=== PATIENT | female | born 1950 | race Caucasian/White ===

== ENCOUNTER 2023-05-13 07:53 | Outpatient (OUT) | payer MEDICARE, SELFPAY ==
--- NOTE | 2023-05-13 07:56 | MM_ITS ---
Patient: TARAH BRISENO Exam Date: 05/13/2023 : 1950 Gender:F Ordering : DR. SUKI BRUCE . Admission #: [id number] Family : Order #: [id number] CLICK HERE TO VIEW EXAM RADIOLOGY REPORT PROCEDURE: MM TOMOSYNTHESIS SCREENING BI COMPARISON: MG MAMM SCREEN 3D ANH CAD, 05/12/2022. MG MAMM SCREEN 3D AHN CAD, 05/11/2021. MG MAMM SCREEN ANH W CAD, 04/15/2020. MG MAMM ANH SCRN W CAD DIG, 05/23/2013. INDICATIONS: Screening Calculator Name NCI Breast Cancer Risk Assessment Tool 5 Year Breast Cancer Risk 2.60% Lifetime Breast Cancer Risk 7.60% Personal Breast Cancer No Personal Ovarian Cancer No Treatments None Family Cancers Grandmother-maternal with breast cancer at age 90; Mother with cervical cancer at age ~45. LOCATION: [facility] BREAST COMPOSITION: Scattered areas fibroglandular density. FINDINGS: DIAGNOSTIC CATEGORY 2--BENIGN FINDING: RIGHT BREAST: No significant suspicious finding. Scattered benign-appearing calcifications are present. Scattered benign-appearing lymph nodes are present. No significant change has occurred. LEFT BREAST: No significant suspicious finding. No significant change has occurred. RECOMMENDATIONS: ROUTINE MAMMOGRAM AND CLINICAL EVALUATION IN 12 MONTHS. PLEASE NOTE: A NORMAL MAMMOGRAM DOES NOT EXCLUDE THE POSSIBILITY OF BREAST CANCER. A CLINICALLY SUSPICIOUS PALPABLE LUMP SHOULD BE BIOPSIED. Dictated by: Justin Park M.D. on 05/16/2023 at 14:37 Approved by: Justin Park M.D. on 05/16/2023 at 14:39
== END 2023-05-13 07:54 | disposition home or self-care (01) ==
LOC: MAMMO 07:53
PROVIDERS: PCP Family Medicine; Visit Provider Family Medicine
DX: Z12.31 Encounter for screening mammogram for malignant neoplasm of breast (principal); Z80.3 Family history of malignant neoplasm of breast; Z80.49 Family history of malignant neoplasm of other genital organs
CPT/HCPCS: 77063; 77067

== ENCOUNTER 2023-10-02 00:28 | Emergency (ER) | payer MEDICARE, SELFPAY ==
[2023-10-02 00:42] VITALS: BP 128/88; PULSE 64; RESP 19; TEMP 36.5; O2SAT 97; BMI 37.4
[2023-10-02 00:49] VITALS: BP 128/88; PULSE 56; RESP 19; TEMP 36.5; O2SAT 96; BMI 37.4
--- OUTSIDE RECORDS SUMMARY | 2023-10-02 00:56 | XMS_ITS | CCD ---
Author Name Unknown Address [address] [place] [address] Organization [facility] Care Team Providers Care Revival Clerk Name Role Phone RAUL NGUYEN Primary Care Physician [phone] JOSHUA, DR RAUL Pickard Primary Care Unavailable JOSHUA, DR RAUL Pickard Admitting Unavailable JOSHUA, DR RAUL Pickard Attending Unavailable JOSHUA, DR RAUL Pickard Consulting Unavailable GAKONA, DR PINEDA Consulting Unavailable JOSHUA, DR RAUL Pickard Referring Unavailable DEO SALGADO, DR VIDA Diaz Admitting Unavailmark YAP, DR DANIELLE Watkins Consulting Unavailable DEO SALGADO, DR VIDA Diaz Attending Unavailabl e JOSHUA, DR RAUL Pickard Primary Care Unavailable DEO SALGADO, DR VIDA Diaz Consulting Unavailabl e JOSHUA, DR RAUL Pickard Primary Care Unavailable JOSHUA, DR RAUL Pickard Admitting Unavailable JOSHUA, DR RAUL Pickard Attending Unavailable JOSHUA, DR RAUL Pickard Consulting Unavailable RAUL NGUYEN Primary Care Physician Colby Escobar Primary Care Physician SAMUEL SHORE Attending Unavailable MD Colby Escobar Attending Unavailable MD Colby Escobar Attending Unavailable JOSHUA, RAUL Pickard Attending Unavailable MD Colby Escobar Attending Unavailable MD Colby Escobar Attending Unavailable LESLY ISBELL Attending Unavailable Oh CHILDS Admitting Unavailable Oh CHILDS Attending Unavailable Oh CHILDS Referring Unavailable MD Colby Escobar Admitting Unavailable MD Colby Escobar Attending Unavailable Oh CHILDS Admitting Unavailable RICE, Oh Bradshaw Attending Unavailable RICE, Oh Bradshaw Admitting Unavailable RICE, Oh Bradshaw Attending Unavailable RICEOh Referring Unavailable RICE, Oh Bradshaw Attending Unavailable RICEOh Attending Unavailable Antonio YUSUF Attending Unavailable Oh CHILDS Attending Unavailable MD Colby Escobar Attending Unavailable RAUL NGUYEN Attending Unavailable Allergies Allergy Classification Reported Allergen(s) Allergy Type Date of Onset Reaction(s) Facility (12 sources) Iodine; Translations: [iodine] Drug Allergy Unknown (qualifier value), Anaphylactic shock [facility] (13 sources) Latex; Translations: [latex] Propensity to adverse reactions to substance Unknown (qualifier value) [facility] (1 source) Iodine (And Iodine Containting Drugs) Drug allergy (disorder) [facility] (2 sources) Acetaminophen; Translations: [acetaminophen] Drug Allergy Unknown (qualifier value) [facility] (1 source) Acetaminophen / Codeine; Translations: [Tylenol with Codeine] Drug Allergy [facility] (1 source) Naproxen; Translations: [Naprosyn] Drug Allergy [facility] Repository Medications Current Medications Medication Drug Class(es) Dates Sig (Normalized) Sig (Original) [id number] 200 actuat albuterol 0.09 mg/actuat metered dose inhaler (7 sources) beta2-Adrenergic Agonist Start: 04-06-2023 take 2 puff(s) by mouth every four hours Proventil HFA 90 mcg/inh Aerosol 2 puff(s), Oral, q4hr Shortness of breath or wheezing, 1 kit(s), Refill(s) 0, [facility] [id number], 163, cm, 04/06/23 15:43:00 EDT, Height/Length Dosing, 107, kg, 04/06/23 15:43:00 EDT, Weight Dosing Start Date: 04/06/23 Status: Ordered Start: 05-03-2022 take 2 puff(s) by in halation every four hours as needed for wheezing Proventil HFA = 2 puff(s), Inhalation, q4hr, PRN Shortness of breath or wheezing, Refills(s) 0 Start Date: 05/03/22 Status: Ordered atorvastatin 40 mg oral tablet (11 sources) HMG-CoA Reductase Inhibitor Start: 06-01-2023 take 1 tablet by mouth once daily atorvastatin 40 mg Tab See Instructions, TAKE 1 TABLET BY MOUTH DAILY, # 90 tab(s), Refills(s) 0, Pharmacy: [facility] [id number], 163, cm, 04/06/23 15:43:00 EDT, Height/Length Dosing, 107, kg, 04/06/23 15:43:00 EDT, Weight Dosing Start Date: 06/01/23 Status: Ordered Start: 02-23-2023 take 1 tablet by raf th once daily atorvastatin 40 mg Tab 40 mg = 1 tab(s), Oral, Daily, # 90 tab(s), Refills(s) 0, Pharmacy: [facility] [id number], 165, cm, 01/11/23 9:47:00 EDT, Height/Length Dosing, 115, kg, 01/11/23 9:47:00 EDT, Weight Dosing Start Date: 02/23/23 Status: Ordered Start: 05-03-2022 take 1 tablet by raf th once daily atorvastatin 40 mg Tab 40 mg = 1 tab(s), Oral, Daily, Refills(s) 0 Start Date: 05/03/22 Status: Ordered Start: 01-06-2021 take 1 mg by mouth once daily atorvastatin 10 mg Tab mg tab(s), Oral, Daily, Refills(s) 0 Start Date: 01/06/21 Status: Ordered ciclopirox 7.7 mg/ml topical cream (5 sources) Start: 10-26-2022 ciclopirox top ical 0.77% cream 1 edwin, Topical, BID, 30 gram, Refill(s) 3, [facility] [id number], 165.1, cm, 09/29/22 10:13:00 EDT, Height/Length Dosing, 109.8, kg, 09/29/22 10:13:00 EDT, Weight Dosing Start Date: 10/26/22 Status: Ordered ibuprofen 600 mg oral tablet (5 sources) Nonsteroidal Anti-inflammatory Drug Start: 04-14-2023 take 1 tablet by mouth every six hours as needed for pain ibuprofen 600 mg Tab 600 mg = 1 tab(s), Oral, q6hr, PRN Pain/Fever, # 30 tab(s), Refills(s) 0, Pharmacy: [facility] [id number], 163, cm, 04/06/23 15:43:00 EDT, Height/Length Dosing, 107, kg, 04/06/23 15:43:00 EDT, Weight Dosing Start Date: 04/14/23 Status: Ordered Start: 09-27-2022 ibuprofen 600 mg Tab Refills(s) 0 Start Date: 09/27/22 Status: Ordered levothyroxine sodium 0.025 mg oral tablet (11 sources) l-Thyroxine Start: 05-10-2023 take 1 tablet by mouth once daily levothyroxine 25 mcg (0.025 mg) Tab 25 mcg = 1 tab(s), Oral, Daily, # 90 tab(s), Refills(s) 1, Pharmacy: [facility] [id number], 163, cm, 04/06/23 15:43:00 EDT, Height/Length Dosing, 107, kg, 04/06/23 15:43:00 EDT, Weight Dosing Start Date: 05/10/23 Status: Ordered Start: 10-29-2022 take 1 tablet by raf th once daily levothyroxine 25 mcg (0.025 mg) Tab 25 mcg = 1 tab(s), Oral, Daily, # 90 tab(s), Refills(s) 1, Pharmacy: [facility] [id number], 165.1, cm, 09/29/22 10:13:00 EDT, Height/Length Dosing, 109.8, kg, 09/29/22 10:13:00 EDT, Weight Dosing Start Date: 10/29/22 Status: Ordered Start: 05-03-2022 take 1 tablet by raf th once daily levothyroxine 25 mcg (0.025 mg) Tab 25 mcg = 1 tab(s), Oral, Daily, Refills(s) 0 Start Date: 05/03/22 Status: Ordered Start: 08-26-2020 take 1 tablet by raf th once daily levothyroxine 50 mcg (0.05 mg) Tab mcg tab(s), Oral, Daily, Refills(s) 0 Start Date: 08/26/20 Status: Ordered Start: 08-26-2020 take 1 tablet by raf th once daily levothyroxine 50 mcg (0.05 mg) Tab mcg tab(s), Oral, Daily, Refills(s) 0 Start Date: 08/26/20 Status: Ordered solifenacin succinate 5 mg oral tablet (1 source) Cholinergic Muscarinic Antagonist Start: 11-12-2021 take 1 tablet by mouth once daily Vesicare 5 mg Tab 5 mg = 1 tab(s), Oral, Daily, # 30 tab(s), Refills(s) 2, Pharmacy: [facility] [id number], 165, cm, 11/12/21 11:38:00 EDT, Height/Length Dosing, 115, kg, 11/12/21 11:38:00 EDT, Weight Dosing Start Date: 11/12/21 Status: Ordered zzzalbuterol CFC free 90 mcg/inh inhalation aerosol (3 sources) Start: 09-27-2022 zzzalbuterol C FC free 90 mcg/inh inhalation aerosol Refills(s) 0 Start Date: 09/27/22 Status: Ordered Completed/Discontinued Medications Medication Drug Class(es) Dates Sig (Normalized) Sig (Original) cephalexin 500 mg oral capsule (5 sources) Cephalosporin Antibacterial Start: 01-19-2022 take 1 capsule by mouth once daily Keflex 500 mg Cap 500 mg = 1 cap(s), Oral, Daily, Take 1 tab day before procedure and 1 after procedure, # 2 cap(s), Refills(s) 0, Pharmacy: [facility] [id number], 165, cm, 01/19/22 9:47:00 EDT, Height/Length Dosing, 115, kg, 01/19/22 9:47:00 EDT, Weight Dosing Start Date: 01/19/22 Status: Ordered Start: 05-07-2021 take 1 capsule by [facility] twice daily Keflex 500 mg Cap 500 mg = 1 cap(s), Oral, BID, pt to start day prior to procedure., # 14 cap(s), Refills(s) 0, Pharmacy: [facility] [id number], 165, cm, 05/07/21 10:07:00 EDT, Height/Length Dosing, 115, kg, 05/07/21 10:07:00 EDT, Weight Dosing Start Date: 05/07/21 Status: Ordered Problems Problem Classification Problem Date Documented Date Episodic/Chronic Abdominal hernia (7 sources) Hiatal hernia 05-03-2022 Episodic Asthma (11 sources) Asthma 12-24-2018 Chronic Disorders of lipid metabolism (8 sources) Pure hypercholesterolemia; Translations: [Pure hypercholesterolemia, unspecified] Onset: 04-04-2022 05-03-2022 Chronic Esophageal disorders (14 sources) Gastroesophageal reflux disease; Translations: [Lower esophageal ring] 05-03-2022 Chronic Genitourinary symptoms and ill-defined conditions (20 sources) Stress incontinence (female) (male); Translations: [Urge incontinence] Onset: 07-02-2021 Chronic Genitourinary symptoms and ill-defined conditions (20 sources) Urgent desire to urinate; Translations: [Urgency of urination] Onset: 06-25-2021 Episodic Mycoses (5 sources) Candidal paronychia 09-29-2022 Episodic Other and unspecified benign neoplasm (7 sources) History of polyp of colon 05-03-2022 Episodic Other connective tissue disease (7 sources) Fibromyalgia 05-03-2022 Episodic Other connective tissue disease (7 sources) History of polymyalgia rheumatica 05-03-2022 Episodic Other diseases of bladder and urethra (7 sources) Urethral stricture; Translations: [Other urethral stricture, female] Onset: 01-10-2023 12-07-2022 Episodic Other diseases of kidney and ureters (11 sources) Cyst of kidney 10-07-2020 Episodic Other nutritional; endocrine; and metabolic disorders (5 sources) Body mass index 40+ - severely obese 05-12-2022 Chronic Other screening for suspected conditions (not mental disorders or infectious disease) (5 sources) Screening for malignant neoplasm of colon done; Translations: [Encounter for screening for malignant neoplasm of colon] Onset: 05-12-2022 Episodic Residual codes; unclassified (1 source) Family history of malignant neoplasm of breast; Translations: [FAMILY HX MALIG NEOPLASM OF BREAST] Onset: 05-18-2022 Episodic Residual codes; unclassified (1 source) Family history of malignant neoplasm of other genital organs; Translations: [FAM HX MALIG NEOPLSM OTH GENIT ORGN] Onset: 05-18-2022 Episodic Thyroid disorders (15 sources) Hyperthyroidism; Translations: [Hypothyroidism] Onset: 03-31-2022 12-24-2018 Chronic Unclassified (11 sources) Asymptomatic microscopic hematuria 10-07-2020 Unclassified (9 sources) Patient encounter status 05-12-2022 Results Test Name Value Interpretation Reference Range Facility Outside Mammographyon 2022 Outside Mammography [id number] Normal [facility] CHEMISTRYOrdered By: SYSTEM SYSTEM on 05-10-2023 Cholesterol [Mass/Vol] 151 mg/dL Normal 120 - 200 mg/dL [facility] Cholesterol in HDL [Mass/Vol] 58 mg/dL Invalid Interpretation Code [facility] Comment on above: Interpretive Data: H DL > or equal to 60 mg/dL: Low cardiovascular risk HDL < 40 mg/dL : High cardiovascular risk Cholesterol in LDL [Mass/Vol] 77 mg/dL Normal <=129mg/dL [facility] Cholesterol in VLDL [Mass/Vol] 28 mg/dL Normal 7 - 40 mg/dL [facility] Triglyceride [Mass/Vol] 141 mg/dL Normal <=149mg/dL [facility] TSH Qn 1.54 m[IU]/L Normal 0.34 - 5.60 mcIU/mL [facility] Lipid Panelon 05-10-2023 Cholesterol [Mass/Vol] 151 mg/dL Normal 120-200 [facility] Comment on above: Performed By: #### 2 [id number], [id number] #### [facility] [address] [place] [address] Cholesterol in HDL [Mass/Vol] 58 mg/dL Invalid Interpretation Code [facility] Comment on above: Result Comment: HDL > or equal to 60 mg/dL: Low cardiovascular risk HDL < 40 mg/dL : High cardiovascular risk Performed By: #### 2 [id number], [id number] #### [facility] [address] [place] [address] Cholesterol in LDL [Mass/Vol] 77 mg/dL Normal <=129 [facility] Comment on above: Performed By: #### 2 [id number], [id number] #### [facility] [address] [place] [address] Cholesterol in VLDL [Mass/Vol] 28 mg/dL Normal 7-40 [facility] Comment on above: Performed By: #### 2 [id number], [id number] #### [facility] [address] [place] [address] Triglyceride [Mass/Vol] 141 mg/dL Normal <=149 [facility] Comment on above: Performed By: #### 2 [id number], [id number] #### [facility] [address] [place] [address] Nurse Consultation Noteon Nurse Consultation Note Reason for Visit Here for a lab draw Medications atorvastatin 40 mg Tab, 40 mg= 1 tab(s), Oral, Daily ciclopirox topical 0.77% cream, 1 edwin, Topical, BID, 3 refills ibuprofen 600 mg Tab, 600 mg= 1 tab(s), Oral, q6hr, PRN levothyroxine 25 mcg (0.025 mg) Tab, 25 mcg= 1 tab(s), Oral, Daily, 1 refills Proventil HFA 90 mcg/inh Aerosol, 2 puff(s), Oral, q4hr, PRN Allergies Latex (Hives) iodine (Anaphylactic shock) Immunizations Vaccine Date Status Comments influenza virus vaccine, inactivated 03/24/2023 Recorded SARS-CoV-2 (COVID-19) [id number] 03/24/2023 Recorded SARS-CoV-2 (COVID-19) [id number].[id number] 07/19/2022 Recorded influenza virus vaccine, inactivated 03/30/2022 Recorded SARS-CoV-2 (COVID-19) mRNA-1273 vaccine 05/19/2021 Recorded influenza virus vaccine, inactivated 04/24/2021 Recorded 2022-09-27: 65 SARS-CoV-2 (COVID-19) mRNA-1273 vaccine 10/04/2020 Recorded SARS-CoV-2 (COVID-19) mRNA-1273 vaccine 09/06/2020 Recorded influenza virus vaccine, inactivated 04/2020 Recorded influenza virus vaccine, inactivated 06/13/2019 Recorded influenza virus vaccine, inactivated 05/18/2018 Recorded influenza virus vaccine, inactivated 06/08/2015 Recorded pneumococcal 23-valent vaccine 04/28/2014 Recorded influenza virus vaccine, inactivated 04/28/2014 Recorded influenza virus vaccine, inactivated 05/13/2013 Recorded Normal [facility] TSH With T4fr Reflexon 05-10 TSH Qn 1.54 m[IU]/L Normal 0.34-5.60 [facility] Comment on above: Performed By: #### 2 [id number], [id number] #### [facility] [address] [place] [address] Ambulatory Visit Summaryon 0 04-14-2023 Ambulatory Visit Summary TARAH BRISENO :1950 Visit Date:04/14/2023 Ambulatory Visit Instructions Your Diagnosis Asthma Fibromyalgia GERD (gastroesophageal reflux disease) Hypothyroidism Pure hypercholesterolemia BMI 39.0-39.9,adult Class 1 obesity due to excess calories in adult Screening mammogram, encounter for Your Care Team Attending Physician - Colby Escobar MD Primary Care Physician - Colby Escobar MD This Is Your Medications List ibuprofen (ibuprofen 600 mg Tab) Contact prescribing physician if questions or concerns albuterol (Proventil HFA 90 mcg/inh Aerosol) atorvastatin (atorvastatin 40 mg Tab) ciclopirox topical (ciclopirox topical 0.77% cream) levothyroxine (levothyroxine 25 mcg (0.025 mg) Tab) Procedures Performed Injection of therapeutic substance into bladder wall (10/23/2020), Urodynamics (12/08/2017), Cystoscopy (10/17/2017), EGD - Esophagogastroduodenoscopy (04/2012), Colonoscopy (04/2010), EGD - Esophagogastroduodenoscopy (04/2010), Colonoscopy (09/2003), Biopsy of breast, Cholecystectomy, Colonoscopy, Tonsillectomy, Tubal ligation. 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 - No new issues. - Asthma is well controlled. Worse in the winter - GERD- Controlled per the patient. Has changed her eating habits. - Hypothyroid- No symptoms - Fibro- Controlled with movement Needs mammo Physical Exam General: alert, no acute distress ENMT: oral mucosa moist, Cardiovascular: regular rate and rhythm, normal peripheral perfusion Respiratory: Lungs CTA, respirations non labored Extremities: no deformity, no trauma Neurological: oriented x 4, LOC appropriate for age, CN II-XII intact, motor strength equal & normal bilaterally, speech normal Abdomen: Soft, Nontender, Non-distended, + BS Assessment/Plan 1. Asthma (J45.909: Unspecified asthma, uncomplicated) - Controlled with PRN albuterol - Follow up as needed Ordered: Body Mass Index (BMI) documented 3008F Current tobacco non-user 1036F Depression Screening Negative 3352F Influenza immunization administered or previously received 4274F Most recent diastolic blood pressure 80-89 mm Hg 3079F Patient screen for fall risk: no falls in last year or 1 fall with no injury in last year 1101F Systolic BP 130-139 mm Hg (Most Recent) 3075F 2. Fibromyalgia (M79.7: Fibromyalgia) - Controlled with movement - As needed Motrin use helps - Motrin refilled today Ordered: Body Mass Index (BMI) documented 3008F Current tobacco non-user 1036F Depression Screening Negative 3352F Influenza immunization administered or previously received 4274F Most recent diastolic blood pressure 80-89 mm Hg 3079F Patient screen for fall risk: no falls in last year or 1 fall with no injury in last year 1101F Systolic BP 130-139 mm Hg (Most Recent) 3075F 3. GERD (gastroesophageal reflux disease) (K21.9: Gastro-esophageal reflux disease without esophagitis) - Controlled with diet and lifestyle modifications. -We will move to PPI if needed Ordered: Body Mass Index (BMI) documented 3008F Current tobacco non-user 1036F Depression Screening Negative 3352F Influenza immunization administered or previously received 4274F Most recent diastolic blood pressure 80-89 mm Hg 3079F Patient screen for fall risk: no falls in last year or 1 fall with no injury in last year 1101F Systolic BP 130-139 mm Hg (Most Recent) 3075F 4. Hypothyroidism (E03.9: Hypothyroidism, unspecified) - We will order lab work today -Continue on levothyroxine 25 mcg Ordered: Body Mass Index (BMI) documented 3008F Current tobacco non-user 1036F Depression Screening Negative 3352F Influenza immunization administered or previously received 4274F Most recent diastolic blood pressure 80-89 mm Hg 3079F Patient screen for fall risk: no falls in last year or 1 fall with no injury in last year 1101F Systolic BP 130-139 mm Hg (Most Recent) 3075F 5. Pure hypercholesterolemia (E78.00: Pure hypercholesterolemia, unspecified) - Will order lab work today -Continue on atorvastatin Ordered: Body Mass Index (BMI) documented 3008F Current tobacco non-user 1036F Depression Screening Negative 3352F Influenza immunization administered or previously received 4274F Most recent diastolic blood pressure 80-89 mm Hg 3079F Patient screen for fall risk: no falls in last year or 1 fall with no injury in last year 1101F Systolic BP 130-139 mm Hg (Most Recent) 3075F 6. BMI 39.0-39.9,adult (Z68.39: Body mass index [BMI] 39.0-39.9, adult) - BMI education given Ordered: Body Mass Index (BMI) documented 3008F Current tobacco non-user 1036F Depression Screening Negative 3352F Influenza immunization administered or previously received 4274F Most recent diastolic blood pressure 80-89 mm Hg 3079F Patient screen for fall risk: no falls in last year or 1 fall with no injury in last year 1101F Systolic BP 130-139 mm Hg (Most Recent) 3075F 7. Class 1 obesity due to excess calories in adult (E66.09: Other obesity due to excess calories) - Discussed diet and exercise Ordered: Body Mass Index (BMI) documented 3008F Current tobacco non-user 1036F Depression Screening Negative 3352F Influenza immunization administered or previously received 4274F Most recent diastolic blood pressure 80-89 mm Hg 3079F Patient screen for fall risk: no falls in last year or 1 fall with no injury in last year 1101F Systolic BP 130-139 mm Hg (Most Recent) 3075F 8. Screening mammogram, encounter for (more content not included)... Normal [facility] Comment on above: Result Comment: Elec tronically Signed By: Shawn CORDOBA, Colby Faye.br\Date and Time Signed: 04/14/23 10:24 EDT Family Medicine Office/Clini c Noteon 04-11-2023 Family Medicine Office/Clinic Note Chief Complaint Subsequent Medicare Wellness Visit History of Present Illness I was in the office and available for consultation and to provide direct supervision at the time of this visit. I have provided supervision of the care team and have reviewed this chart and office note and agree with the plan of care. Covid-19, MERS, Ebola Screen *Contact With Person With Highly Contagious Disease Like Ebola/MERS/COVID-19 AND Have One or More of the Symptoms Below : No *Travel to a Country With Wide-Spread Ebola/MERS/COVID-19 in the Past 21 Days AND Have One or More of the Symptoms Below : No Patient Reported Covid-19 Testing : No *Verify Droplet, Contact Precautions for Ebola (Reference for CDC) : N/A *Verify Airborne, Droplet Precautions for MERS/COVID-19 : N/A Oscar Rebolledo - 04/06/2023 15:35 EDT Medicare/Medicaid Summary Chief Complaint : Subsequent Medicare Wellness Visit Patient Counseled : Nutrition, Physical activity, Elevated BMI Height/Length Measured : 163 cm(Converted to: 5 ft 4 in, 64.17 in) Weight Measured : 107 kg(Converted to: 235 lb 14 Ounces, 235.895 lb) Body Mass Index Measured : 40.27 kg/m2 Height in Inches : 64 in Weight in Pounds : 235.4 lb Waist Measurement : 113 cm(Converted to: 44 in) Systolic Blood Pressure : 124 mmHg Diastolic Blood Pressure : 70 mmHg Blood Pressure Location : Left arm Blood Pressure Position : Sitting O2 Sat Resting/Exertion Alpha : Resting Peripheral Pulse Rate : 67 bpm SpO2 : 97 % Pain Present : Yes actual or suspected pain Numeric Rating Pain Scale : 8 Primary Pain Location : Back Numeric Rating Pain Score : 8 Oscar Rebolledo 04/06/2023 15:35 EDT Patient Preferred Method of Communication No Preference Hearing and Vision Screening FT FT Whisper Test Comments : no issues or concerns Vision Screen Comments : Wears corrective lenses, follows with Oscar Albert R - 04/06/2023 15:35 EDT Advance Directive FT Advance Directive : Yes Type of Advance Directive : Living will, Medical durable power of attorney lawyer Location of Advance Directive : Copy at home, unable to obtain Patient Wishes to Receive Further Information on Advance Directives : No Organ Donation Consent : Yes Oscar Rebolledo - 04/06/2023 15:35 EDT Procedures / Surgeries FT - Procedure History (As Of: 04/06/2023 15:43:04 EDT) Procedure Dt/Tm: 12/08/2017 ; Provider: Vida Desouza Jr., MD; Anesthesia Minutes: 0 ; Procedure Name: Urodynamics ; Procedure Minutes: 0 ; Last Reviewed Dt/Tm: 04/06/2023 15:38:42 EDT Anesthesia Minutes: 0 ; Procedure Name: Biopsy of breast ; Procedure Minutes: 0 ; Last Reviewed Dt/Tm: 04/06/2023 15:38:42 EDT Anesthesia Minutes: 0 ; Procedure Name: Colonoscopy ; Procedure Minutes: 0 ; Last Reviewed Dt/Tm: 04/06/2023 15:38:42 EDT Anesthesia Minutes: 0 ; Procedure Name: Tubal ligation ; Procedure Minutes: 0 ; Last Reviewed Dt/Tm: 04/06/2023 15:38:42 EDT Anesthesia Minutes: 0 ; Procedure Name: Cholecystectomy ; Procedure Minutes: 0 ; Last Reviewed Dt/Tm: 04/06/2023 15:38:42 EDT Anesthesia Minutes: 0 ; Procedure Name: Tonsillectomy ; Procedure Minutes: 0 ; Last Reviewed Dt/Tm: 04/06/2023 15:38:42 EDT Procedure Dt/Tm: 10/17/2017 ; Provider: Vida Desouza Jr., MD; Anesthesia Minutes: 0 ; Procedure Name: Cystoscopy ; Procedure Minutes: 0 ; Comments: 12/24/2018 15:00 EDT - Veronica Magaña with Urethral dilation ; Last Reviewed Dt/Tm: 04/06/2023 15:38:42 EDT Procedure Dt/Tm: 10/23/2020 ; Provider: Vida Desouza Jr., MD; Anesthesia Minutes: 0 ; Procedure Name: Injection of therapeutic substance into bladder wall ; Procedure Minutes: 0 ; Last Reviewed Dt/Tm: 04/06/2023 15:38:42 EDT Procedure Dt/Tm: 04/2012 ; Anesthesia Minutes: 0 ; Procedure Name: EGD - Esophagogastroduodenoscopy ; Procedure Minutes: 0 ; Last Reviewed Dt/Tm: 04/06/2023 15:38:42 EDT Procedure Dt/Tm: 04/2010 ; Anesthesia Minutes: 0 ; Procedure Name: Colonoscopy ; Procedure Minutes: 0 ; Last Reviewed Dt/Tm: 04/06/2023 15:38:42 EDT Procedure Dt/Tm: 04/2010 ; Anesthesia Minutes: 0 ; Procedure Name: EGD - Esophagogastroduodenoscopy ; Procedure Minutes: 0 ; Last Reviewed Dt/Tm: 04/06/2023 15:38:42 EDT Procedure Dt/Tm: 09/2003 ; Anesthesia Minutes: 0 ; Procedure Name: Colonoscopy ; Procedure Minutes: 0 ; Last Reviewed Dt/Tm: 04/06/2023 15:38:42 EDT Family History Family History (As Of: 04/06/2023 15:43:04 EDT) Mother: Relation: Mother ; Gender: Female ; Nomenclature: Primary malignant neoplasm of female genital organ ; Value: Positive Grandparent: Relation: Grandparent ; Nomenclature: Primary malignant neoplasm of female breast ; Value: Positive Medicare/Medicaid Social History FT Social History (As Of: 04/06/2023 15:43:04 EDT) Alcohol: Denies Alcohol Use Comments: 04/06/2023 15:38 - Oscar Rebolledo: denies (Last Updated: 04/06/2023 15:38:56 EDT by Oscar Rebolledo) Tobacco: Never (less than 100 in lifetime) Tobacco Use:. Never S (more content not included)... Normal [facility] Comment on above: Result Comment: Elec tronically Signed By: Colby Escobar MD\.br\Date and Time Signed: 04/11/23 11:58 EDT\.br\Electronically Co-Signed By: Oscar Rebolledo.br\Date and Time Co-Signed: 04/06/23 16:02 EDT Formson 04-07-2023 Forms [id number]:127 Normal [facility] Screenson 04-07-2023 Screens [id number]:127 Normal [facility] Ambulatory Visit Summaryon 0 04-06-2023 Ambulatory Visit Summary TARAH BRISENO :1950 Visit Date:04/06/2023 Ambulatory Visit Instructions Your Diagnosis Annual visit for general adult medical examination without abnormal findings Screening mammogram for breast cancer Asthma Hypothyroidism Morbid obesity due to excess calories BMI 40.0-44.9, adult Tests Performed MA Mamm Screen w/CAD if perf and 3D Bk -- Results Pending -- Please visit your patient portal for your results or contact your primary care physician. Your Care Team Attending Physician - Colby Escobar MD Primary Care Physician - Colby Escobar MD This Is Your Medications List albuterol (Proventil HFA) atorvastatin (atorvastatin 40 mg Tab) ciclopirox topical (ciclopirox topical 0.77% cream) ibuprofen (ibuprofen 600 mg Tab) levothyroxine (levothyroxine 25 mcg (0.025 mg) Tab) Procedures Performed Injection of therapeutic substance into bladder wall (10/23/2020), Urodynamics (12/08/2017), Cystoscopy (10/17/2017), EGD - Esophagogastroduodenoscopy (04/2012), Colonoscopy (04/2010), EGD - Esophagogastroduodenoscopy (04/2010), Colonoscopy (09/2003), Biopsy of breast, Cholecystectomy, Colonoscopy, Tonsillectomy, Tubal ligation. Discharge Vitals Heart Rate (Peripheral) 67 Blood Pressure 124/70 Height 163 cm Height 64 in Weight 107 kg Weight 235.4 lb BMI 40.27 What to do next Scheduled Follow-Up Appointments 2022 9:40 AM EDT With: Colby Escobar MD Where: [facility] Invalid Interpretation Code [address], [address] [place] [address]- \.b r\ Tuesday 1:00 PM EDT \.br\ With:\.br\ Where: [facility] Patient Educationon 04-06-20 Patient Education Caregiving Fall Prevention in the Home, Adult Falls can cause injuries and affect people of all ages. There are many simple things that you can do to make your home safe and to help prevent falls. Ask for help when making these changes, if needed. What actions can I take to prevent falls? General instructions ? Use good lighting in all rooms. Replace any light bulbs that burn out, turn on lights if it is dark, and use night-lights. ? Place frequently used items in [id number] places. Lower the shelves around your home if necessary. ? Set up furniture so that there are clear paths around it. Avoid moving your furniture around. ? Remove throw rugs and other tripping hazards from the floor. ? Avoid walking on wet floors. ? Fix any uneven floor surfaces. ? Add color or contrast paint or tape to grab bars and handrails in your home. Place contrasting color strips on the first and last steps of staircases. ? When you use a stepladder, make sure that it is completely opened and that the sides and supports are firmly locked. Have someone hold the ladder while you are using it. Do not climb a closed stepladder. ? Know where your pets are when moving through your home. What can I do in the bathroom? ? Keep the floor dry. Immediately clean up any water that is on the floor. ? Remove soap buildup in the tub or shower regularly. ? Use nonskid mats or decals on the floor of the tub or shower. ? Attach bath mats securely with double-sided, nonslip rug tape. ? If you need to sit down while you are in the shower, use a plastic, nonslip stool. ? Install grab bars by the toilet and in the tub and shower. Do not use towel bars as grab bars. What can I do in the bedroom? ? Make sure that a bedside light is easy to reach. ? Do not use oversized bedding that reaches the floor. ? Have a firm chair that has side arms to use for getting dressed. What can I do in the kitchen? ? Clean up any spills right away. ? If you need to reach for something above you, use a sturdy step stool that has a grab bar. ? Keep electrical cables out of the way. ? Do not use floor kiswahili or wax that makes floors slippery. If you must use wax, make sure that it is non-skid floor wax. What can I do with my stairs? ? Do not leave any items on the stairs. ? Make sure that you have a light switch at the top and the bottom of the stairs. Have them installed if you do not have them. ? Make sure that there are handrails on both sides of the stairs. Fix handrails that are broken or loose. Make sure that handrails are as long as the staircases. ? Install non-slip stair treads on all stairs in your home. ? Avoid having throw rugs at the top or bottom of stairs, or secure the rugs with carpet tape to prevent them from moving. ? Choose a carpet design that does not hide the edge of steps on the stairs. ? Check any carpeting to make sure that it is firmly attached to the stairs. Fix any carpet that is loose or worn. What can I do on the outside of my home? ? Use bright outdoor lighting. ? Regularly repair the edges of walkways and driveways and fix any cracks. ? Remove high doorway thresholds. ? Trim any shrubbery on the main path into your home. ? Regularly check that handrails are securely fastened and in good repair. Both sides of all steps should have handrails. ? Install guardrails along the edges of any raised decks or porches. ? Clear walkways of debris and clutter, including tools and rocks. ? Have leaves, snow, and ice cleared regularly. ? Use sand or salt on walkways during winter months. ? In the garage, clean up any spills right away, including grease or oil spills. What other actions can I take? ? Wear closed-toe shoes that fit well and support your feet. Wear shoes that have rubber soles or low heels. ? Use mobility aids as needed, such as canes, walkers, scooters, and crutches. ? Review your medicines with your health care provider. Some medicines can cause dizziness or changes in blood pressure, which increase your risk of falling. Talk with your health care provider about other ways that you can decrease your risk of falls. This may include working with a physical therapist or program trainer to improve your strength, balance, and endurance. Where to find more information ? Centers for Disease Control and Prevention, STEADI: www.cdc.gov ? National [place] on Aging: www.jenny.nih.gov Contact a health care provider if: ? You are afraid of falling at home. ? You feel weak, drowsy, or dizzy at home. ? You fall at home. Summary ? There are many simple things that you can do to make your home safe and to help prevent falls. ? Ways to make your home safe include removing tripping hazards and installing grab bars in the bathroom. ? Ask for help when making these changes in your home. This information is not intended to replace advice given to you by your health ca (more content not included)... Normal [facility] Ambulatory Visit Summaryon 0 01-11-2023 Ambulatory Visit Summary TARAH BRISENO :1950 Visit Date:01/11/2023 Ambulatory Visit Instructions Your Diagnosis Mixed incontinence Other urethral stricture, female Asymptomatic microscopic hematuria Tests Performed Urnls Dip Stick Auto w/o Microscopy POC [id number] Your Care Team Attending Physician - WOLFGANG CORDOBA, Oh Bradshaw Primary Care Physician - JOSHUA CORDOBA, RAUL Pickard This Is Your Medications List Contact prescribing physician if questions or concerns albuterol (Proventil HFA) albuterol (zzzalbuterol CFC free 90 mcg/inh inhalation aerosol) atorvastatin (atorvastatin 40 mg Tab) ciclopirox topical (ciclopirox topical 0.77% cream) ibuprofen (ibuprofen 600 mg Tab) levothyroxine (levothyroxine 25 mcg (0.025 mg) Tab) Procedures Performed Injection of therapeutic substance into bladder wall (10/23/2020), Urodynamics (12/08/2017), Cystoscopy (10/17/2017), EGD - Esophagogastroduodenoscopy (04/2012), Colonoscopy (04/2010), EGD - Esophagogastroduodenoscopy (04/2010), Colonoscopy (09/2003), Biopsy of breast, Cholecystectomy, Colonoscopy, Tonsillectomy, Tubal ligation. Discharge Vitals Height 165 cm Height 65 in Weight 115 kg Weight 253 lb BMI 42.24 What to do next Scheduled Follow-Up Appointments Tuesday 10:15 AM EST With: MADELIN CORDOBA, Antonio Alonzo Where: [facility] Normal [facility] Patient Educationon 01-12-20 23 Patient Education Obstetrics and Gynec ology Overactive Bladder, Adult Overactive bladder is a condition in which a person has a sudden and frequent need to urinate. A person might also leak urine if he or she cannot get to the bathroom fast enough (urinary incontinence). Sometimes, symptoms can interfere with work or social activities. What are the causes? Overactive bladder is associated with poor nerve signals between your bladder and your brain. Your bladder may get the signal to empty before it is full. You may also have very sensitive muscles that make your bladder squeeze too soon. This condition may also be caused by other factors, such as: ? Medical conditions: ? Urinary tract infection. ? Infection of nearby tissues. ? Prostate enlargement. ? Bladder stones, inflammation, or tumors. ? Diabetes. ? Muscle or nerve weakness, especially from these conditions: ? A spinal cord injury. ? Stroke. ? Multiple sclerosis. ? Parkinson's disease. ? Other causes: ? Surgery on the uterus or urethra. ? Drinking too much caffeine or alcohol. ? Certain medicines, especially those that eliminate extra fluid in the body (diuretics). ? Constipation. What increases the risk? You may be at greater risk for overactive bladder if you: ? Are an older adult. ? Smoke. ? Are going through menopause. ? Have prostate problems. ? Have a neurological disease, such as stroke, dementia, Parkinson's disease, or multiple sclerosis (MS). ? Eat or drink alcohol, spicy food, caffeine, and other things that irritate the bladder. ? Are overweight or obese. What are the signs or symptoms? Symptoms of this condition include a sudden, strong urge to urinate. Other symptoms include: ? Leaking urine. ? Urinating 8 or more times a day. ? Waking up to urinate 2 or more times overnight. How is this diagnosed? This condition may be diagnosed based on: ? Your symptoms and medical history. ? A physical exam. ? Blood or urine tests to check for possible causes, such as infection. You may also need to see a health care provider who specializes in urinary tract problems. This is called a urologist. How is this treated? Treatment for overactive bladder depends on the cause of your condition and whether it is mild or severe. Treatment may include: ? Bladder training, such as: ? Learning to control the urge to urinate by following a schedule to urinate at regular intervals. ? Doing Kegel exercises to strengthen the pelvic floor muscles that support your bladder. ? Special devices, such as: ? Biofeedback. This uses sensors to help you become aware of your body's signals. ? Electrical stimulation. This uses electrodes placed inside the body (implanted) or outside the body. These electrodes send gentle pulses of electricity to strengthen the nerves or muscles that control the bladder. ? Women may use a plastic device, called a pessary, that fits into the vagina and supports the bladder. ? Medicines, such as: ? Antibiotics to treat bladder infection. ? Antispasmodics to stop the bladder from releasing urine at the wrong time. ? Tricyclic antidepressants to relax bladder muscles. ? Injections of botulinum toxin type A directly into the bladder tissue to relax bladder muscles. ? Surgery, such as: ? A device may be implanted to help manage the nerve signals that control urination. ? An electrode may be implanted to stimulate electrical signals in the bladder. ? A procedure may be done to change the shape of the bladder. This is done only in very severe cases. Follow these instructions at home: Eating and drinking ? Make diet or lifestyle changes recommended by your health care provider. These may include: ? Drinking fluids throughout the day and not only with meals. ? Cutting down on caffeine or alcohol. ? Eating a healthy and balanced diet to prevent constipation. This may include: ? Choosing foods that are high in fiber, such as beans, whole grains, and fresh fruits and vegetables. ? Limiting foods that are high in fat and processed sugars, such as fried and sweet foods. Lifestyle ? Lose weight if needed. ? Do not use any products that contain nicotine or tobacco. These include cigarettes, chewing tobacco, and vaping devices, such as e-cigarettes. If you need help quitting, ask your health care provider. General instructions ? Take qcfx-btw-fexalkn and prescription medicines only as told by your health care provider. ? If you were prescribed an antibiotic medicine, take it as told by your health care provider. Do not stop taking the antibiotic even if you start to feel better. ? Use any implants or pessary as told by your health care provider. ? If needed, wear pads to absorb urine leakage. ? Keep a log to track how much and when you drink, and when you need to urinate. This will help your health care provider monitor yo (more content not included)... Normal [facility] Urology Office/Clinic Noteon 01-11-2023 Urology Office/Clinic Note Chief Complaint fu to botox HPI Staff 72 year old female here for 1 week follow up to cysto botox 01/05/23 Previous Dx: Mixed incontinence, nocturia, Urinary urgency, urethral stricture S/P cysto ud 07/07/22, Micro hematuria pt. states that her leakage has stopped since having botox Dysuria: no Incomplete bladder emptying: no Hematuria: no Frequency: no Urgency: no Nocturia: 1-2x Stream:good stream Leaking: no Post void dripping: no Wearing pads/ Depends: no Urge incontinence: no Stress incontinence: no Incontinence without Sensory Awareness: no Abdominal pain:no Flank pain: no Sexual complaints: no History of Present Illness Tests reviewed: reviewed UA I have reviewed the previous health record information and history for this patient from Dr. Childs. I have reviewed and verified the staff HPI to be accurate for this encounter. There have been no associated fever, chills, flank pain, or blood in the urine. Denies any urinary infections since last encounter. Review of Systems PHQ Score Initial Depression Screen Score: 0 ROS - Provider Constitutional: denies weight loss, denies hot flashes. Eyes: denies eye problems. Gastrointestinal: denies nausea, denies vomiting. Cardiovascular: denies chest pain or angina. Integumentary: no dryness Musculoskeletal: denies musculoskeletal symptoms. ENMT: denies otolaryngeal symptoms. Respiratory: no shortness of breath. Heme/Lymph: denies easy bleeding tendency, denies easy bruising tendency. Psychiatric: no confusion, no anxiety. Genitourinary: denies vaginal discharge, denies incontinence, denies dysuria, denies hematuria, denies urinary frequency, denies amenorrhea, denies menorrhagia, denies abnormal bleeding, denies pelvic pain, denies genital sores, and denies decreased libido. Physical Exam Vitals & Measurements HT: 65 in HT: 165 cm WT: 115 kg WT: 253 lb BMI: 42.24 General Appearance: alert , no acute distress, well nourished, well developed female. Genitourinary: bladder nonpalpable, no flank pain. Assessment/Plan Portions of this record may have been created with voice recognition artificial intelligence software, specifically [employer], [employer] and or [employer]. Substitutions may have occurred due to the inherent limitations of voice recognition and artificial intelligence software. 1. Mixed incontinence (N39.46: Mixed incontinence) S/p Botox 100 units 10/23/20 S/p Botox 200 units 05/28/21 and 01/05/23 Pt states her sxs have improved significantly, no longer has any leakage or urgency. PVR 200mL Pt is not currently on any bladder control medications. Follow up in 6 months or sooner if needed. Pt understands and agrees with plan. 2. Other urethral stricture, female (N35.82: Other urethral stricture, female) S/p Cysto/UD 07/07/2022 Pt aware that Urethral Stricture may return and she may need to have a repeat dilation. 3. Asymptomatic microscopic hematuria (R31.21: Asymptomatic microscopic hematuria) C&S 01/03/23 - negative. UA today shows trace-intact blood and small leukocytes. Patient had Botox 200 units and is delighted with the results everything has improved frequency urgency leakage etc. not sure how long will last with the patient is delighted I said well she wants to see Dr. Yusuf she said in 6 months and I acquiesced and she will see Madelin in 6 months and make a plan going forward. Follow-up With When Contact Information WOLFGANG CORDOBA, Oh Bradshaw, URJoe In [address] [place] [phone] Additional Instructions: Dr. Yusuf Patient Education Overactive Bladder, Adult I, Nikki Oliver, personally scribed for Dr. Childs on 01/11/2023 10:30:18. Documentation recorded by the scribe, Nikki Oliver, accurately reflects the services(s) I performed and decisions made by me. Authenticated by Dr. Childs on 01/11/2023 10:32:5810:30:18. Problem List/Past Medical History Ongoing Asthma Asymptomatic microscopic hematuria BMI 40.0-44.9, adult Candidiasis of skin and nail Fibromyalgia GERD (gastroesophageal reflux disease) Hiatal hernia History of colon polyps History of polymyalgia rheumatica Hypothyroidism Incontinence without sensory awareness Microhematuria Mixed incontinence Nocturia Other urethral stricture, female Pure hypercholesterolemia Renal cyst Schatzki's ring Screening for malignant neoplasm of colon Stress incontinence Urge incontinence Urinary urgency Historical No qualifying data Procedure/Surgical History Injection of therapeutic substance into bladder wall (10/23/2020), Urodynamics (12/08/2017), Cystoscopy (10/17/2017), EGD - Esophagogastroduodenoscopy (04/2012), Colonoscopy (04/2010), EGD - Esophagogastroduodenoscopy (04/2010), Colonoscopy (09/2003), Biopsy of breast, Cholecystectomy, Colonoscopy, Tonsillectomy, Tubal ligation. Medications atorvastatin 40 mg Tab, (more content not included)... Normal [facility] Comment on above: Result Comment: Elec tronically Signed By: Oh CHILDS MD\.br\Date and Time Signed: 01/11/23 10:33 EDT\.br\Electronically Co-Signed By: Nikki Oliver\.br\Date and Time Co-Signed: 01/11/23 10:30 EDT Consent for Procedure/Surger yon 01-05-2023 Consent for Procedure/Surgery [id number]:127 Normal [facility] Consent for Treatmenton 12-17 Consent for Treatment [id number]#[id number]:127 Normal [facility] Inpatient Patient Summaryon 01-05-2023 Inpatient Patient Summary [address] [address] Clinical Summary Person Information Name: TARAH BRISENO Age: 72 Years : 1950 Sex: Female PCP: JOSHUA CORDOBA, RAUL Pickard Marital Status: Race: White Ethnicity: Non- or Language: Georgian Visit Id: Visit Reason: MIXED INCONTINENCE, URETHERAL STRICTURE FEMALE Speciality: Acuity: Enc Type: Outpatient Med Service: Surgery Arrival: 01/05/2023 08:19:28 Discharge: Dispo Type: Address: [address] [place] [phone] Provider Notes: Diagnosis: Problems Active Nocturia Other urethral stricture, female Candidiasis of skin and nail Mixed incontinence Screening for malignant neoplasm of colon BMI 40.0-44.9, adult Pure hypercholesterolemia History of polymyalgia rheumatica Schatzki's ring Fibromyalgia History of colon polyps Hiatal hernia GERD (gastroesophageal reflux disease) Hypothyroidism Stress incontinence Urge incontinence Incontinence without sensory awareness Asymptomatic microscopic hematuria Renal cyst Asthma Urinary urgency Microhematuria Smoking Status: Functional Status: Sensory Deficits: History of Falls: Mobility Assistance Prior to Admission: ADLs: Current Level of Assistance for Self-Care/Mobility: Cognitive Status: Allergies Latex (Hives) iodine (Anaphylactic shock) Laboratory or Other Results This Visit (last charted value for your 01/05/2023 visit) No Laboratory or Other Results This Visit Measurements: Height: 165 cm Weight: Blood Pressure: Not Valued / Not Valued BMI: Procedures No Procedures Documented Immunizations No Immunizations Documented This Visit Final Med List: albuterol (Proventil HFA) 2 Puffs Inhalation every 4 hours as needed Shortness of breath or wheezing. albuterol (zzzalbuterol CFC free 90 mcg/inh inhalation aerosol) atorvastatin (atorvastatin 40 mg Tab) 1 Tablets By Mouth every day. ciclopirox topical (ciclopirox topical 0.77% cream) 1 Application Topical 2 times a day. Refills: 3. ibuprofen (ibuprofen 600 mg Tab) levothyroxine (levothyroxine 25 mcg (0.025 mg) Tab) 1 Tablets By Mouth every day. Refills: 1. Care Team Members: Attending Physician: Oh CHILDS MD Consulting Physician: Referring Physician: Oh CHILDS MD Follow up: With: Address: When: Oh CHILDS [address] [place] [phone] Business (1) Within 1 week With: Address: When: Oh WOLFGANG [address] [place] [phone] Business (1) Type Location Start Finish State URO Office Visit [facility] EU Darren 01/11/2023 9:30 AM 01/11/2023 9:45 AM Confirmed Patient Education Information: [facility] IntraOperative Documentson 0 01-05-2023 IntraOperative Documents [id number]:127 [facility] Main OR Intraoperative Recor don 01-05-2023 Main OR Intraoperative Record IntraOp Document Type FTURO Summary Primary Physician: Oh CHILDS MD Finalized Date/Time: 01/05/23 10:41:47 Pt. Name: TARAH BRISNEO/Sex: 1950 Female Med Rec #: [id number] Physician: Oh CHILDS MD Financial #: [id number] Pt. Type: O Room/Bed: / Admit/Disch: 01/05/23 08:19:28 - Institution: Case Times FTURO Entry 1 Patient Times In Room 01/05/23 10:16:00 Out Room 01/05/23 10:36:00 Procedure Times Start 01/05/23 10:23:00 Stop 01/05/23 10:31:00 Anesthesia Times Last Modified By: Vicky Washburn RN 01/05/23 10:41:33 Case Attendance FTURO Entry 1 Entry 2 Entry 3 Case Attendee WOLFGANG CORDOBA, Oh Willson PROCESS TECHNICIAN, Kavita Washburn RN, Vicky Galaviz Role Performed Surgeon - Primary Scrub - Primary Analysis Tester - Primary Time In 01/05/23 10:16:00 01/05/23 10:16:00 01/05/23 10:16:00 Time Out 01/05/23 10:36:00 01/05/23 10:36:00 01/05/23 10:36:00 Procedure CYSTOSCOPY LOCAL BOTOX CYSTOSCOPY LOCAL BOTOX CYSTOSCOPY LOCAL BOTOX INJECTION(.) INJECTION(.) INJECTION(.) Comments Last Modified By: Wu SALINAS, Vicky Washburn RN, Vicky Douglass RN 01/05/23 10:41:34 01/05/23 10:41:34 01/05/23 10:41:34 Surgical Procedures FTURO Entry 1 Procedure Description Procedure CYSTOSCOPY LOCAL BOTOX Modifiers . INJECTION Surgeon Description CYSTOSCOPY WITH BOTOX 200 UNITS LOT NUMBER [id number] EXP DATE AND [id number] EXP DATE Primary Procedure Yes Primary Surgeon Oh CHILDS MD Start 01/05/23 10:23:00 Stop 01/05/23 10:31:00 Anesthesia Type Local Surgical Service Urology Wound Class 2 - Clean-Contaminated Last Modified By: Vicky Washburn RN 01/05/23 10:41:45 General Case Data FTURO Pre-Care Text: Classifies surgical wound, implements aseptic technique, initiates traffic control Entry 1 Case Information OR URO 1 FT Case Level None Wound Class 2 - Clean-Contaminated Specialty Urology Preop Diagnosis MIXED INCONTINENCE, Postop Same As Preop Yes URETHERAL STRICTURE FEMALE Postop Diagnosis MIXED INCONTINENCE, Outcomes Met? Yes URETHERAL STRICTURE FEMALE Last Modified By: Vicky Washburn RN 01/05/23 10:21:40 Post-Care Text: The patient is free from signs and symptoms of infection EU IntraOp - FTURO Pre-Care Text: Implements protective measures prior to operative or invasive procedure, confirms identity before the operative or invasive procedure, verifies operative procedure, surgical site, and laterality Entry 1 EU Perioperative Protocols Procedure(s) CYSTOSCOPY LOCAL BOTOX Patient Identity Birthday, ID Band INJECTION(.) Verified (select at Check, Patient least 2): Participation Consents / H and P HandP, Surgery/Procedure Operative Site N/A Verified Consent Marking Verified Surgical Site Yes Laterality Verified Yes Verified Procedure Verified Yes Correct Patient Yes Position Verified Availability Equipment, Medication Time Out Oh CHILDS MD, Verified (If Participants Kavita Willson CST, Applicable) Vicky Washburn RN Time Out Complete 01/05/23 10:18:00 Allergies Reviewed? Yes Allergies Reviewed Self/Patient With Body Position Low Lithotomy Prep Area PERINEUM Prep Agents Betasept Skin. Condition Dry, Warm, Unable to Description UNABLE TO VISUALIZE DUE Visualize TO PATIENT PARTIALLY CLOTHED Additional None Specimens Collected Vitals - EU Blood Pressure 127/70 Pulse 54 bpm Respirations 20 br/min SPO2 98 % EBL 0 IandO - EU Total Intake 0 mL Total Output 0 mL Outcomes Met? Yes Last Modified By: Vicky Washburn RN 01/05/23 10:23:13 Post-Care Text: The patient is free from signs and symptoms of injury caused by extraneous objects Sign Out FTURO Entry 1 Before Patient Leaves OR Nurse verbally Yes Nurse verbally Yes confirms with the confirms with the team the name of team that the procedure(s) instrument, sponge, recorded and needle counts are correct (or N/A) Nurse verbally n/a Nurse verbally Yes confirms with the confirms with the team how the team whether there specimen is labeled are any equipment (including patient problems to be name), if applicable addressed Sign Out Complete 01/05/23 10:31:00 Last Modified By: Vicky Washburn RN 01/05/23 10:41:41 Case Comments Finalized By: Vicky Washburn RN Document Signatures Signed By: Vicky Washburn RN 01/05/23 10:41 Normal [facility] Main OR Preoperative Recordo n 01-05-2023 Main OR Preoperative Record Holding Area Document Type FTURO Summary Primary Physician: Oh CHILDS MD Finalized Date/Time: 01/05/23 10:18:18 Pt. Name: TARAH BRISENO/Sex: 1950 Female Med Rec #: [id number] Physician: Oh CHILDS MD Financial #: [id number] Pt. Type: O Room/Bed: / Admit/Disch: 01/05/23 08:19:28 - Institution: Case Times Holding FTURO Pre-Care Text: Verifies consent for planned procedure, identifies individual values and wishes concerning care, includes family members in perioperative teaching Secures patient's records' belongings, and valuables, maintains patient's dignity and privacy, and maintains patient confidentiality Entry 1 In Holding 01/05/23 08:51:00 Outcomes Met? Yes Last Modified By: Brandy Gallego LPN 01/05/23 08:51:26 Post-Care Text: The patient participates in decisions affecting his or her perioperative plan of care The patient's right to privacy is maintained Surgery Checklist FTURO Entry 1 Patient Birthday, ID Band Procedure Surgical Consent, With Identification: Check, Patient Verification: Patient Participation NPO after Midnight: n/a Date/Time: 01/05/23 08:51:00 Personal Items: Glasses, Jewelry Personal Items glasses, rings x 2 Comment: Complaints of Pain: No Skin Integrity Intact, [place], Warm, & Dry Vitals - EU Blood Pressure 127/70 Pulse 54 bpm Respirations 20 br/min SPO2 98 % Additional Other (See Comment) Specimens Comment urine for dip stick Specimens Collected RN Reviewed Yes Last Modified By: Vicky Washburn RN 01/05/23 10:18:17 General Comments: Temp 36.3 Finalized By: Vicky Washburn RN Document Signatures Signed By: Brnady Gallego LPN 01/05/23 08:55 Brandy Gallego LPN 01/05/23 08:55 Vicky Washburn RN 01/05/23 10:18 Normal [facility] Operative Reporton Operative Report Patient: TARAH BRISENO Age: 72 years Sex: Female : 1950 Associated Diagnoses: None Author: Oh CHILDS MD Procedure Operative Information Details: Date/ Time: 01/05/2023 10:36:00. 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 Post-Op Dx: Same. Anesthesia Type: Local. Procedure: Local Cystoscopy with botox injection. Complications: None. Risks/Benefits/Informed Consent: Surgical risks, benefits, details of the procedure have been explained to the patient, Full informed consent has been obtained. Intraoperative Information Prepped: Patient is brought back to the endoscopy suite, Male Prep, Female Prep (Patient is placed in modified dorso/lithotomy position, 5 cc 2% Xylocaine Jelly is placed per Urethra, Straight cath inserted to obtain urine specimen, 60 cc 2% Xylocaine liquid inserted into bladder, 5 additional cc 2% Xylocaine Jelly is placed per Urethra, Patient in sitting position for 20 min dwell), Urine Specimen Results Negative for infection, Patient prepped in the usual fashion with Betadine solution, After waiting several minutes the Cystoscope is introduced. Procedure: The trigone was identified and evaluated, 20 template injection sites were identified, The bladder was instilled with enough saline to achieve adequate visualization for the injections, The needle was inserted approximately 2 mm into the detrusor spaced approximately 1 cm apart, A total of 20 injections with a 1 ml volume was delivered at each site for a total of 200 units of Botox. The Bladder is: Trabeculated Mild (1). The ureteral orifices: Show efflux of clear urine. Devices Implanted: None. Removal: Cystoscope is removed, The patient tolerated it well. Postoperative Information Discharge: Patient is discharged home with antibiotic coverage, Follow up arranged. Normal [facility] Comment on above: Result Comment: Elec tronically Signed By: Oh CHILDS MD\.br\Date and Time Signed: 01/05/23 10:36 EDT Outpatient Surgery Discharge Instructionon 01-05-2023 Outpatient Surgery Discharge Instruction [place] [id number] Patient Discharge Instructions PERSON INFORMATION Name: TARAH BRISENO Date of : 1950 Current Date: 01/05/2023 10:35:01 PHYSICIANS Admitting Physician: Oh CHILDS MD Comment: Discharge Diagnosis: TARAH BRISENO has been given the following list of follow-up instructions, prescriptions, and patient education materials: IF UNABLE TO CONTACT YOUR PHYSICIAN AND YOU FEEL IT IS AN EMERGENCY, GO TO THE NEAREST EMERGENCY ROOM OR CALL 911 Follow up: With: Address: When: Oh [address] [address] [facility] (1) Within 1 week With: Address: When: [place] [id number] [facility] () Type Location Start [facility] URO Office Visit [facility] 01/11/2023 9:30 AM 01/11/2023 9:45 AM Confirmed Comment: PATIENT EDUCATION INFORMATION Instructions: ISUZANNA BARBARA J, have received the attached patient education materials/instructions and have verbalized understanding: May we do a follow up call? Yes No I was present when discharge instructions were given Patient Signature Date Clinican/Nurse Signature Date You may receive a survey from Oriana Pena asking you to rate your care experience. Your feedback is important and will help us understand what we do well and how we can improve the quality of care we provide to you, your loved ones and our community. It?s an honor to serve you. Thank you for choosing [facility] Patient Educationon 01-06-20 Patient Education [facility] C Urineon 01-02-2023 Bacteria identified Cx Nom (U) Microbiology PROCEDURE: Urine Culture [R1] SOURCE: U CleanCatch BODY SITE: COLLECTED DATE/TIME: 12/31/2022 09:09 EDT RECEIVED DATE/TIME: 12/31/2022 18:51 EDT START DATE/TIME: 12/31/2022 18:51 EDT FREE TEXT SOURCE: WOLFGANG CORDOBA, Oh CHILDS MD, Oh Bradshaw FINAL REPORTS Final Report [] Verified Date/Time: 01/02/2023 07:04 EDT <10,000 cfu/ml Mixed skin contaminants Performing Locations R1: This test was performed at: [facility], [address] [place] [address], [id number], [facility] Comment on above: Performed By: #### 2 [id number] #### [facility] [address] [place] [id number] Pre-Certification Formon Pre-Certification Form [id number]:127 Normal [facility] Pre-Certification Form [id number]:127 Normal [facility] C Urineon 12-09-2022 Bacteria identified Cx Nom (U) Microbiology PROCEDURE: Urine Culture [R1] SOURCE: U CleanCatch BODY SITE: COLLECTED DATE/TIME: 12/07/2022 09:17 EDT RECEIVED DATE/TIME: 12/07/2022 14:17 EDT START DATE/TIME: 12/07/2022 14:17 EDT FREE TEXT SOURCE: WOLFGANG CORDOBA, Oh CHILDS MD, Oh Bradshaw FINAL REPORTS Final Report [] Verified Date/Time: 12/09/2022 08:32 EDT 3,000 cfu/ml Mixed skin contaminants Performing Locations R1: This test was performed at: [facility], [address] [place] [address], [id number] , [facility] Comment on above: Performed By: #### 2 [id number] #### [facility] [address] [place] [id number] Ambulatory Visit Summaryon 0 12-07-2022 Ambulatory Visit Summary TARAH BRISENO :1950 Visit Date:12/07/2022 Ambulatory Visit Instructions Your Diagnosis Mixed incontinence Nocturia Urinary urgency Other urethral stricture, female Urge incontinence Asymptomatic microscopic hematuria UTI symptoms Tests Performed Urnls Dip Stick Auto w/o Microscopy POC 70931 Your Care Team Attending Physician - WOLFGANG CORDOBA, Oh Bradshaw Primary Care Physician - JOSHUA CORDOBA, RAUL Pickard This Is Your Medications List Contact prescribing physician if questions or concerns albuterol (Proventil HFA) albuterol (zzzalbuterol CFC free 90 mcg/inh inhalation aerosol) atorvastatin (atorvastatin 40 mg Tab) ciclopirox topical (ciclopirox topical 0.77% cream) ibuprofen (ibuprofen 600 mg Tab) levothyroxine (levothyroxine 25 mcg (0.025 mg) Tab) Procedures Performed Injection of therapeutic substance into bladder wall (10/23/2020), Urodynamics (12/08/2017), Cystoscopy (10/17/2017), EGD - Esophagogastroduodenoscopy (04/2012), Colonoscopy (04/2010), EGD - Esophagogastroduodenoscopy (04/2010), Colonoscopy (09/2003), Biopsy of breast, Cholecystectomy, Colonoscopy, Tonsillectomy, Tubal ligation. Discharge Vitals Height 165 cm Height 65 in Weight 115 kg Weight 253 lb BMI 42.24 What to do next You Need to Schedule the Following Appointments Follow Up with WOLFGANG CORDOBA, JEN Anaya When: Where: [address] [place] [address]- Medications What How Much When Instructions Unchanged albuterol (Proventil HFA) 2 Puffs Inhalation Every 4 hours as needed for Shortness of breath or wheezing Contact prescribing physician if questions or concerns Unchanged albuterol (zzzalbuterol CFC free 90 mcg/ inh inhalation aerosol) Contact prescribing physician if questions or concerns Unchanged atorvastatin (atorvastatin 40 mg Tab) 1 Tablets By Mouth Every day Contact prescribing physician if questions or concerns Unchanged ciclopirox topical (ciclopirox topical 0.77% cream) 1 Application Topical 2 times a day Contact prescribing physician if questions or concerns Unchanged ibuprofen (ibuprofen 600 mg Tab) Contact prescribing physician if questions or concerns Unchanged levothyroxine (levothyroxine 25 mcg (0.025 mg) Tab) 1 Tablets By Mouth Every day Contact prescribing physician if questions or concerns Test Results Urnls Dip Stick Auto w/o Microscopy POC 90416 (12/07/2022) Bilirubin Urine Dipstick - Negative Blood Urine Dipstick - 2+ Moderate Glucose Urine Dipstick - Negative Ketones Urine Dipstick - Negative Leukocytes Urine Dipstick - 1+ Small Nitrite Urine Dipstick - Negative Protein Urine Dipstick - 1+ (30 mg/dl) Specific [place] Urine Dipstick - >=1.030 Urine Appearance Urine Dipstick - Clear Urine Color Urine Dipstick - Yellow Urobilinogen Urine Dipstick - Normal 0.2-1 EU/dl pH Urine Dipstick - 5.5 Allergies Tylenol (Unknown) Latex (Unknown) iodine (Unknown) Problems Ongoing - Any problem that you are currently receiving treatment for. Asthma Asymptomatic microscopic hematuria BMI 40.0-44.9, adult Candidiasis of skin and nail Fibromyalgia GERD (gastroesophageal reflux disease) Hiatal hernia History of colon polyps History of polymyalgia rheumatica Hypothyroidism Incontinence without sensory awareness Microhematuria Mixed incontinence Nocturia Other urethral stricture, female Pure hypercholesterolemia Renal cyst Schatzki's ring Screening for malignant neoplasm of colon Stress incontinence Urge incontinence Urinary urgency Education Materials Overactive Bladder, Adult Overactive bladder is a condition in which a person has a sudden and frequent need to urinate. A person might also leak urine if he or she cannot get to the bathroom fast enough (urinary incontinence). Sometimes, symptoms can interfere with work or social activities. What are the causes? Overactive bladder is associated with poor nerve signals between your bladder and your brain. Your bladder may get the signal to empty before it is full. You may also have very sensitive muscles that make your bladder squeeze too soon. This condition may also be caused by other factors, such as: ? Medical conditions: ? Urinary tract infection. ? Infection of nearby tissues. ? Prostate enlargement. ? Bladder stones, inflammation, or tumors. ? Diabetes. ? Muscle or nerve weakness, especially from these conditions: ? A spinal cord injury. ? Stroke. ? Multiple sclerosis. ? Parkinson's disease. ? Other causes: ? Surgery on the uterus or urethra. ? Drinking too much caffeine or alcohol. ? Certain medicines, especially those that eliminate extra fluid in the body (diuretics). ? Constipation. What increases the risk? You may be at greater risk for overactive bladder if you: ? Are an older adult. ? Smoke. ? Are going through menopause. ? Have prostate (more content not included)... Normal [facility] Patient Educationon 12-08-19 Patient Education Obstetrics and Gynec ology Overactive Bladder, Adult Overactive bladder is a condition in which a person has a sudden and frequent need to urinate. A person might also leak urine if he or she cannot get to the bathroom fast enough (urinary incontinence). Sometimes, symptoms can interfere with work or social activities. What are the causes? Overactive bladder is associated with poor nerve signals between your bladder and your brain. Your bladder may get the signal to empty before it is full. You may also have very sensitive muscles that make your bladder squeeze too soon. This condition may also be caused by other factors, such as: ? Medical conditions: ? Urinary tract infection. ? Infection of nearby tissues. ? Prostate enlargement. ? Bladder stones, inflammation, or tumors. ? Diabetes. ? Muscle or nerve weakness, especially from these conditions: ? A spinal cord injury. ? Stroke. ? Multiple sclerosis. ? Parkinson's disease. ? Other causes: ? Surgery on the uterus or urethra. ? Drinking too much caffeine or alcohol. ? Certain medicines, especially those that eliminate extra fluid in the body (diuretics). ? Constipation. What increases the risk? You may be at greater risk for overactive bladder if you: ? Are an older adult. ? Smoke. ? Are going through menopause. ? Have prostate problems. ? Have a neurological disease, such as stroke, dementia, Parkinson's disease, or multiple sclerosis (MS). ? Eat or drink alcohol, spicy food, caffeine, and other things that irritate the bladder. ? Are overweight or obese. What are the signs or symptoms? Symptoms of this condition include a sudden, strong urge to urinate. Other symptoms include: ? Leaking urine. ? Urinating 8 or more times a day. ? Waking up to urinate 2 or more times overnight. How is this diagnosed? This condition may be diagnosed based on: ? Your symptoms and medical history. ? A physical exam. ? Blood or urine tests to check for possible causes, such as infection. You may also need to see a health care provider who specializes in urinary tract problems. This is called a urologist. How is this treated? Treatment for overactive bladder depends on the cause of your condition and whether it is mild or severe. Treatment may include: ? Bladder training, such as: ? Learning to control the urge to urinate by following a schedule to urinate at regular intervals. ? Doing Kegel exercises to strengthen the pelvic floor muscles that support your bladder. ? Special devices, such as: ? Biofeedback. This uses sensors to help you become aware of your body's signals. ? Electrical stimulation. This uses electrodes placed inside the body (implanted) or outside the body. These electrodes send gentle pulses of electricity to strengthen the nerves or muscles that control the bladder. ? Women may use a plastic device, called a pessary, that fits into the vagina and supports the bladder. ? Medicines, such as: ? Antibiotics to treat bladder infection. ? Antispasmodics to stop the bladder from releasing urine at the wrong time. ? Tricyclic antidepressants to relax bladder muscles. ? Injections of botulinum toxin type A directly into the bladder tissue to relax bladder muscles. ? Surgery, such as: ? A device may be implanted to help manage the nerve signals that control urination. ? An electrode may be implanted to stimulate electrical signals in the bladder. ? A procedure may be done to change the shape of the bladder. This is done only in very severe cases. Follow these instructions at home: Eating and drinking ? Make diet or lifestyle changes recommended by your health care provider. These may include: ? Drinking fluids throughout the day and not only with meals. ? Cutting down on caffeine or alcohol. ? Eating a healthy and balanced diet to prevent constipation. This may include: ? Choosing foods that are high in fiber, such as beans, whole grains, and fresh fruits and vegetables. ? Limiting foods that are high in fat and processed sugars, such as fried and sweet foods. Lifestyle ? Lose weight if needed. ? Do not use any products that contain nicotine or tobacco. These include cigarettes, chewing tobacco, and vaping devices, such as e-cigarettes. If you need help quitting, ask your health care provider. General instructions ? Take [id number] and prescription medicines only as told by your health care provider. ? If you were prescribed an antibiotic medicine, take it as told by your health care provider. Do not stop taking the antibiotic even if you start to feel better. ? Use any implants or pessary as told by your health care provider. ? If needed, wear pads to absorb urine leakage. ? Keep a log to track how much and when you drink, and when you need to urinate. This will help your health care provider monitor yo (more content not included)... Normal [facility] Urology Office/Clinic Noteon 12-07-2022 Urology Office/Clinic Note Chief Complaint 4 month F/U HPI Staff 72 year old female here for 3 month follow up Previous DX: Mixed incontinence S/P Botox 10/21/20- Cysto 07/07/21, Urinary urgency, Micro hematuria Dysuria:no Incomplete bladder emptying: no Hematuria:UA shows moderate today Frequency:every hour if she is drinking Urgency:yes Nocturia:2-3x's Stream:good stream Post void dripping: Wearing pads/ Depends:yes Pt. is wearing pads and uses 5-6 a day Urge incontinence:yes Stress incontinence:yes Incontinence without Sensory Awareness:yes Abdominal pain:no Flank pain:no History of Present Illness Pt is here for 4 month follow up due to Mixed Incontinence Reviewed UA Pt has no associated symptoms, no fever, no chills, no flank pain. I have reviewed the previous health record information and history for this patient from Dr. Childs Review of Systems PHQ Score Initial Depression Screen Score: 0 ROS - Provider Constitutional: denies weight loss, denies hot flashes. Eyes: denies eye problems. Gastrointestinal: denies nausea, denies vomiting. Cardiovascular: denies chest pain or angina. Integumentary: no dryness Musculoskeletal: denies musculoskeletal symptoms. ENMT: denies otolaryngeal symptoms. Respiratory: no shortness of breath. Heme/Lymph: denies easy bleeding tendency, denies easy bruising tendency. Psychiatric: no confusion, no anxiety. Genitourinary: denies vaginal discharge, denies incontinence, denies dysuria, denies hematuria, denies urinary frequency, denies amenorrhea, denies menorrhagia, denies abnormal bleeding, denies pelvic pain, denies genital sores, and denies decreased libido. Physical Exam Vitals & Measurements HT: 65 in HT: 165 cm WT: 115 kg WT: 253 lb BMI: 42.24 General Appearance: alert , no acute distress, well nourished, well developed female. Genitourinary: bladder nonpalpable, no flank pain. Assessment/Plan 1. Mixed incontinence (N39.46: Mixed incontinence) Pt is S/P Botox: 10/23/2020 and 05/28/2021 Pt is not currently on any bladder control medications and changes pad 4-5x a day 2. Nocturia (R35.1: Nocturia) Mild Pt states she wakes 2-3x a night to urinate 3. Urinary urgency (R39.15: Urgency of urination) Mild 4. Other urethral stricture, female (N35.82: Other urethral stricture, female) Pt is S/P Cysto/UD 07/07/2022 Pt aware that Urethral Stricture may return and she may need to have a repeat dilation. 5. Urge incontinence (N39.41: Urge incontinence) Pt is S/P Botox: 10/23/2020 and 05/28/2021 Will schedule Botox 200Units; ABX sent 6. Asymptomatic microscopic hematuria (R31.21: Asymptomatic microscopic hematuria) Pt has Moderate blood in UA today. Will send for C&S Patricia patient so many issues but she is lost 25 to 30 pounds since the first of the year which she said she would initiate her goal is to lose that much again however her bladder has frequency urgency incontinence nocturia medications or not doing the appropriate job patient did say that the Botox she had 2 years ago was very helpful so were going to give 200 units of Botox. The urine did show a little blood she always has that in some leukocytes I am going to send her for culture and sensitivity at the time of surgery I may do a FISH test. We shall see how that goes but I will certainly get urine samples and do the Botox Botox therapy. Follow-up With When Contact Information WOLFGANG CORDOBA, Oh Bradshaw, URJoe [address] [place] [address]- Additional Instructions: Patient Education Overactive Bladder, Adult Urinary Incontinence I, Kadi Anderson, personally scribed for Dr. Childs on 12/07/2022 09:15:52. . Documentation recorded by the scribe, Kadi Anderson, accurately reflects the services(s) I performed and decisions made by me. Authenticated by Dr. Childs on 12/07/2022 09:19:29. Problem List/Past Medical History Ongoing Asthma Asymptomatic microscopic hematuria BMI 40.0-44.9, adult Candidiasis of skin and nail Fibromyalgia GERD (gastroesophageal reflux disease) Hiatal hernia History of colon polyps History of polymyalgia rheumatica Hypothyroidism Incontinence without sensory awareness Microhematuria Mixed incontinence Nocturia Other urethral stricture, female Pure hypercholesterolemia Renal cyst Schatzki's ring Screening for malignant neoplasm of colon Stress incontinence Urge incontinence Urinary urgency Historical No qualifying data Procedure/Surgical History Injection of therapeutic substance into bladder wall (10/23/2020), Urodynamics (12/08/2017), Cystoscopy (10/17/2017), EGD - Esophagogastroduodenoscopy (04/2012), Colonoscopy (04/2010), EGD - Esophagogastroduodenoscopy (04/2010), Colonoscopy (09/2003), Biopsy of breast, Cholecystectomy, Colonoscopy, Tonsillectomy, Tubal ligation. Medications atorvastatin 40 mg Tab, 40 mg= 1 tab(s), Oral, Daily ciclopirox topical 0.77% cream, 1 edwin (more content not included)... Normal [facility] Comment on above: Result Comment: Elec tronically Signed By: Oh CHILDS MD\.br\Date and Time Signed: 12/07/22 09:19 EDT\.br\Electronically Co-Signed By: Kadi Anderson\.br\Date and Time Co-Signed: 12/07/22 09:16 EDT Family Medicine Office/Clini c Noteon 09-29-2022 Family Medicine Office/Clinic Note Chief Complaint rash under breast HPI Staff Tarah is a 72 year old female who presents today with concerns of a rash under her breast. Duration: years New or Recurrent: has had it for years been treating on her own with tinactin spray and it natarajan now when she uses it Location: under the breasts Description: red and will ooze at times Rash symptoms: comes on with heat Colonoscopy: was seen to get scheduled but with 's appts couldn't get it on the schedule Mammogram: Apr 2022 Review of Systems PHQ Score Initial Depression Screen Score: 0 Physical Exam Vitals & Measurements HR: 60(Peripheral) RR: 16 BP: 138/86 SpO2: 98% HT: 65 in HT: 165.10 cm WT: 109.8 kg WT: 241.56 lb BMI: 40.28 Assessment/Plan 1. Candidal dermatitis (B37.2: Candidiasis of skin and nail) 2. Hypothyroidism (E03.9: Hypothyroidism, unspecified) 3. Pure hypercholesterolemia (E78.00: Pure hypercholesterolemia, unspecified) Orders: nystatin topical, 1 edwin, Topical, TID for 14 day(s), 60 gm, Refill(s) 1, [facility] [id number], 165.1, cm, 09/29/22 10:13:00 EDT, Height/Length Dosing, 109.8, kg, 09/29/22 10:13:00 EDT, Weight Dosing Body Mass Index (BMI) documented 3008F Current tobacco non-user 1036F Depression Screening Negative 3352F Influenza immunization administered or previously received 4274F Most recent diastolic blood pressure 80-89 mm Hg 3079F Patient screen for fall risk: no falls in last year or 1 fall with no injury in last year 1101F Systolic BP 130-139 mm Hg (Most Recent) 3075F Follow-up No qualifying data available Problem List/Past Medical History Ongoing Asthma Asymptomatic microscopic hematuria BMI 40.0-44.9, adult Candidiasis of skin and nail Fibromyalgia GERD (gastroesophageal reflux disease) Hiatal hernia History of colon polyps History of polymyalgia rheumatica Hypothyroidism Incontinence without sensory awareness Microhematuria Mixed incontinence Pure hypercholesterolemia Renal cyst Schatzki's ring Screening for malignant neoplasm of colon Stress incontinence Urge incontinence Urinary urgency Historical No qualifying data Procedure/Surgical History Injection of therapeutic substance into bladder wall (10/23/2020), Urodynamics (12/08/2017), Cystoscopy (10/17/2017), EGD - Esophagogastroduodenoscopy (04/2012), Colonoscopy (04/2010), EGD - Esophagogastroduodenoscopy (04/2010), Colonoscopy (09/2003), Biopsy of breast, Cholecystectomy, Colonoscopy, Tonsillectomy, Tubal ligation. Medications atorvastatin 40 mg Tab, 40 mg= 1 tab(s), Oral, Daily ibuprofen 600 mg Tab levothyroxine 25 mcg (0.025 mg) Tab, 25 mcg= 1 tab(s), Oral, Daily nystatin Top 100,000 units/g Pwdr, 1 edwin, Topical, TID, 1 refills Proventil HFA, 2 puff(s), Inhalation, q4hr, PRN zzzalbuterol CFC free 90 mcg/inh inhalation aerosol, Not taking: duplicate Allergies Tylenol (Unknown) Latex (Unknown) iodine (Unknown) Social History Alcohol - Denies Alcohol Use, 05/12/2022 Substance Abuse - Denies Substance Abuse, 05/12/2022 Tobacco Never (less than 100 in lifetime) Tobacco Use:. Never Smokeless Tobacco Use:., 09/29/2022 Family History Primary malignant neoplasm of female breast: Grandparent. Primary malignant neoplasm of female genital organ: Mother. Immunizations Vaccine Date Status Comments SARS-CoV-2 (COVID-19) mRNAMUL.[id number] 07/19/2022 Recorded influenza virus vaccine, inactivated 03/30/2022 Recorded SARS-CoV-2 (COVID-19) mRNA-1273 vaccine 05/19/2021 Recorded influenza virus vaccine, inactivated 04/24/2021 Recorded 2022-09-27: 65 SARS-CoV-2 (COVID-19) mRNA-1273 vaccine 10/04/2020 Recorded SARS-CoV-2 (COVID-19) mRNA-1273 vaccine 09/06/2020 Recorded influenza virus vaccine, inactivated 04/2020 Recorded influenza virus vaccine, inactivated 06/13/2019 Recorded influenza virus vaccine, inactivated 05/18/2018 Recorded influenza virus vaccine, inactivated 06/08/2015 Recorded pneumococcal 23-valent vaccine 04/28/2014 Recorded influenza virus vaccine, inactivated 04/28/2014 Recorded influenza virus vaccine, inactivated 05/13/2013 Recorded Normal [facility] Comment on above: Result Comment: Elec tronically Signed By: JOSHUA CORDOBA, RAUL Pickard\.br\Date and Time Signed: 09/29/22 10:48 EDT Family Medicine Office/Clinic Note Chief Complaint rash under breast HPI Staff Tarah is a 72 year old female who presents today with concerns of a rash under her breast. Duration: years New or Recurrent: has had it for years been treating on her own with tinactin spray and it natarajan now when she uses it Location: under the breasts Description: red and will ooze at times Rash symptoms: comes on with heat Colonoscopy: was seen to get scheduled but with 's appts couldn't get it on the schedule Mammogram: Apr 2022 History of Present Illness Rash comes when it comes, was using tinactin. Still on thyroid meds No evidence of sugar symptoms Asthma controlled. Review of Systems PHQ Score Initial Depression Screen Score: 0 Constitutional: no fever, no chills, no sweats, no weakness Respiratory: no shortness of breath, no cough, no orthopnea, no wheezing Cardiovascular: no chest pain, no palpitations, no edema Additional ROS info: Except as noted in the above Review of Systems and in the History of Present Illness all other systems have been reviewed and are negative or noncontributory. Physical Exam Vitals & Measurements HR: 60(Peripheral) RR: 16 BP: 138/86 SpO2: 98% HT: 65 in HT: 165.10 cm WT: 109.8 kg WT: 241.56 lb BMI: 40.28 General: alert, no acute distress ENMT: TM's clear, oral mucosa moist, no pharyngeal erythema or exudate Cardiovascular: regular rate and rhythm, normal peripheral perfusion Respiratory: Lungs CTA, respirations non labored Abd: soft nondistended non tender no organomegaly no palpable masses. Skin, monilial dermatitis under the breasts. Extremities: no deformity, no trauma Neurological: oriented x 4, LOC appropriate for age, CN II-XII intact, motor strength equal & normal bilaterally, sensation equal & normal bilaterally, speech normal Assessment/Plan 1. Candidal dermatitis (B37.2: Candidiasis of skin and nail) Ed. on dx. process if this does not work will try ketoconazole or combination creasm. Symptomatic treatment explained. 2. Hypothyroidism (E03.9: Hypothyroidism, unspecified) Due for blood work in december? 3. Pure hypercholesterolemia (E78.00: Pure hypercholesterolemia, unspecified) Will do with well visit this year. Orders: nystatin topical, 1 edwin, Topical, TID for 14 day(s), 60 gm, Refill(s) 1, [facility] [id number], 165.1, cm, 09/29/22 10:13:00 EDT, Height/Length Dosing, 109.8, kg, 09/29/22 10:13:00 EDT, Weight Dosing Body Mass Index (BMI) documented 3008F Current tobacco non-user 1036F Depression Screening Negative 3352F Influenza immunization administered or previously received 4274F Most recent diastolic blood pressure 80-89 mm Hg 3079F Patient screen for fall risk: no falls in last year or 1 fall with no injury in last year 1101F Systolic BP 130-139 mm Hg (Most Recent) 3075F Follow-up No qualifying data available Problem List/Past Medical History Ongoing Asthma Asymptomatic microscopic hematuria BMI 40.0-44.9, adult Candidiasis of skin and nail Fibromyalgia GERD (gastroesophageal reflux disease) Hiatal hernia History of colon polyps History of polymyalgia rheumatica Hypothyroidism Incontinence without sensory awareness Microhematuria Mixed incontinence Pure hypercholesterolemia Renal cyst Schatzki's ring Screening for malignant neoplasm of colon Stress incontinence Urge incontinence Urinary urgency Historical No qualifying data Procedure/Surgical History Injection of therapeutic substance into bladder wall (10/23/2020), Urodynamics (12/08/2017), Cystoscopy (10/17/2017), EGD - Esophagogastroduodenoscopy (04/2012), Colonoscopy (04/2010), EGD - Esophagogastroduodenoscopy (04/2010), Colonoscopy (09/2003), Biopsy of breast, Cholecystectomy, Colonoscopy, Tonsillectomy, Tubal ligation. Medications atorvastatin 40 mg Tab, 40 mg= 1 tab(s), Oral, Daily ibuprofen 600 mg Tab levothyroxine 25 mcg (0.025 mg) Tab, 25 mcg= 1 tab(s), Oral, Daily nystatin Top 100,000 units/g Pwdr, 1 edwin, Topical, TID, 1 refills Proventil HFA, 2 puff(s), Inhalation, q4hr, PRN zzzalbuterol CFC free 90 mcg/inh inhalation aerosol, Not taking: duplicate Allergies Tylenol (Unknown) Latex (Unknown) iodine (Unknown) Social History Alcohol - Denies Alcohol Use, 05/12/2022 Substance Abuse - Denies Substance Abuse, 05/12/2022 Tobacco Never (less than 100 in lifetime) Tobacco Use:. Never Smokeless Tobacco Use:., 09/29/2022 Family History Primary malignant neoplasm of female breast: Grandparent. Primary malignant neoplasm of female genital organ: Mother. Immunizations Vaccine Date Status Comments SARS-CoV-2 (COVID-19) mRNAMUL.[id number] 07/19/2022 Recorded influenza virus vaccine, inactivated 03/30/2022 Recorded SARS-CoV-2 (COVID-19) mRNA-1273 vaccine 05/19/2021 Recorded influenza virus vaccine, inactivated 04/24/2021 Recorded 2022-09-27: 65 SARS-CoV-2 (COVID-19) mRNA-1273 vaccine 10/04/2020 Recorded SARS-CoV-2 (COVID-19) mRNA-1273 vaccine 0 (more content not included)... Normal [facility] Comment on above: Result Comment: Elec tronically Signed By: JOSHUA CORDOBA, RAUL Pickard\.br\Date and Time Signed: 09/29/22 10:44 EDT Ambulatory Visit Summaryon 0 08-10-2022 Ambulatory Visit Summary TARAH BRISENO :1950 Visit Date:08/10/2022 Ambulatory Visit Instructions Your Diagnosis Mixed incontinence Urinary urgency Tests Performed Urnls Dip Stick Auto w/o Microscopy POC 60289 Your Care Team Attending Physician - Oh CHILDS MD Primary Care Physician - RAUL NGUYEN MD Referring Physician - Oh CHILDS MD This Is Your Medications List Contact prescribing physician if questions or concerns albuterol (Proventil HFA) atorvastatin (atorvastatin 40 mg Tab) levothyroxine (levothyroxine 25 mcg (0.025 mg) Tab) [Image Removed: STOP]Stop taking these medications cephalexin (Keflex 500 mg Cap) Procedures Performed Injection of therapeutic substance into bladder wall (10/23/2020), Urodynamics (12/08/2017), Cystoscopy (10/17/2017), EGD - Esophagogastroduodenoscopy (04/2012), Colonoscopy (04/2010), EGD - Esophagogastroduodenoscopy (04/2010), Colonoscopy (09/2003), Biopsy of breast, Cholecystectomy, Colonoscopy, Tonsillectomy, Tubal ligation. Discharge Vitals Heart Rate (Peripheral) 84 Respiratory Rate 16 Blood Pressure 128/85 Height 165 cm Height 65 in Weight 115 kg Weight 253 lb BMI 42.24 What to do next Scheduled Follow-Up Appointments Tuesday 12:15 PM EDT With: Oh CHILDS MD Where: [facility] Patient Educationon 08-10-19 23 Patient Education Urology Urinary Incontinence Urinary incontinence refers to a condition in which a person is unable to control where and when to pass urine. A person with this condition will urinate when he or she does not mean to (involuntarily). What are the causes? This condition may be caused by: ? Medicines. ? Infections. ? Constipation. ? Overactive bladder muscles. ? Weak bladder muscles. ? Weak pelvic floor muscles. These muscles provide support for the bladder, intestine, and, in women, the uterus. ? Enlarged prostate in men. The prostate is a gland near the bladder. When it gets too big, it can pinch the urethra. With the urethra blocked, the bladder can weaken and lose the ability to empty properly. ? Surgery. ? Emotional factors, such as anxiety, stress, or post-traumatic stress disorder (PTSD). ? Pelvic organ prolapse. This happens in women when organs shift out of place and into the vagina. This shift can prevent the bladder and urethra from working properly. What increases the risk? The following factors may make you more likely to develop this condition: ? Older age. ? Obesity and physical inactivity. ? and childbirth. ? Menopause. ? Diseases that affect the nerves or spinal cord (neurological diseases). ? Long-term (chronic) coughing. This can increase pressure on the bladder and pelvic floor muscles. What are the signs or symptoms? Symptoms may vary depending on the type of urinary incontinence you have. They include: ? A sudden urge to urinate, but passing urine involuntarily before you can get to a bathroom (urge incontinence). ? Suddenly passing urine with any activity that forces urine to pass, such as coughing, laughing, exercise, or sneezing (stress incontinence). ? Needing to urinate often, but urinating only a small amount, or constantly dribbling urine (overflow incontinence). ? Urinating because you cannot get to the bathroom in time due to a physical disability, such as arthritis or injury, or communication and thinking problems, such as Alzheimer disease (functional incontinence). How is this diagnosed? This condition may be diagnosed based on: ? Your medical history. ? A physical exam. ? Tests, such as: ? Urine tests. ? X-rays of your kidney and bladder. ? Ultrasound. ? CT scan. ? Cystoscopy. In this procedure, a health care provider inserts a tube with a light and camera (cystoscope) through the urethra and into the bladder in order to check for problems. ? Urodynamic testing. These tests assess how well the bladder, urethra, and sphincter can store and release urine. There are different types of urodynamic tests, and they vary depending on what the test is measuring. To help diagnose your condition, your health care provider may recommend that you keep a log of when you urinate and how much you urinate. How is this treated? Treatment for this condition depends on the type of incontinence that you have and its cause. Treatment may include: ? Lifestyle changes, such as: ? Quitting smoking. ? Maintaining a healthy weight. ? Staying active. Try to get 150 minutes of moderate-intensity exercise every week. Ask your health care provider which activities are safe for you. ? Eating a healthy diet. ? Avoid high-fat foods, like fried foods. ? Avoid refined carbohydrates like white bread and white rice. ? Limit how much alcohol and caffeine you drink. ? Increase your fiber intake. Foods such as fresh fruits, vegetables, beans, and whole grains are healthy sources of fiber. ? Pelvic floor muscle exercises. ? Bladder training, such as lengthening the amount of time between bathroom breaks, or using the bathroom at regular intervals. ? Using techniques to suppress bladder urges. This can include distraction techniques or controlled breathing exercises. ? Medicines to relax the bladder muscles and prevent bladder spasms. ? Medicines to help slow or prevent the growth of a man's prostate. ? Botox injections. These can help relax the bladder muscles. ? Using pulses of electricity to help change bladder reflexes (electrical nerve stimulation). ? For women, using a territory sales manager medical to prevent urine leaks. This is a small, tampon-like, disposable device that is inserted into the urethra. ? Injecting collagen or carbon beads (bulking agents) into the urinary sphincter. These can help thicken tissue and close the bladder opening. ? Surgery. Follow these instructions at home: Lifestyle ? Limit alcohol and caffeine. These can fill your bladder quickly and irritate it. ? Keep yourself clean to help prevent odors and skin damage. Ask your doctor about special skin creams and cleansers that can protect the skin from urine. ? Consider wearing pads or adult diapers. Make sure to change them regularly, and always change them right after experiencing incontinence. General instructions ? Take [id number]-ovtpxkw and prescription medicines only as (more content not included)... Normal [facility] Urology Office/Clinic Noteon 08-10-2022 Urology Office/Clinic Note Chief Complaint F/U HPI Staff This is a 71 year old female here to F/U Cysto done 07/07/22. Previous DX: stress incontinence, urge incontinence and urinary urgency. S/P Botox done 10/21/20. Dysuria: no Incomplete bladder emptying: no Hematuria: UA shows moderate today Frequency: occasionally Urgency: Pt. states at night Nocturia: no Stream: good stream Leaking: yes Post void dripping: no Wearing pads/ Depends: Pt. wears a liner Urge incontinence: yes Stress incontinence: yes Incontinence without Sensory Awareness: no Abdominal pain: no Flank pain: no History of Present Illness Tests reviewed: reviewed UA I have reviewed the previous health record information and history for this patient from Dr. Childs. I have reviewed and verified the staff HPI to be accurate for this encounter. There have been no associated fever, chills, flank pain, or blood in the urine. Denies any urinary infections since last encounter. Review of Systems PHQ Score Initial Depression Screen Score: 0 ROS - Provider Constitutional: denies weight loss, denies hot flashes. Eyes: denies eye problems. Gastrointestinal: denies nausea, denies vomiting. Cardiovascular: denies chest pain or angina. Integumentary: no dryness Musculoskeletal: denies musculoskeletal symptoms. ENMT: denies otolaryngeal symptoms. Respiratory: no shortness of breath. Heme/Lymph: denies easy bleeding tendency, denies easy bruising tendency. Psychiatric: no confusion, no anxiety. Genitourinary: denies vaginal discharge, denies incontinence, denies dysuria, denies hematuria, denies urinary frequency, denies amenorrhea, denies menorrhagia, denies abnormal bleeding, denies pelvic pain, denies genital sores, and denies decreased libido. Physical Exam Vitals & Measurements HR: 84(Peripheral) RR: 16 BP: 128/85 HT: 65 in HT: 165 cm WT: 115 kg WT: 253 lb BMI: 42.24 General Appearance: alert , no acute distress, well nourished, well developed female. Genitourinary: bladder nonpalpable, no flank pain. Assessment/Plan 1. Mixed incontinence (N39.46: Mixed incontinence) S/p Botox 10/21/20 and Cysto 07/07/21. Pt. wears a liner. At the time of Cysto, pt. was encouraged to adjust dietary habits and start a weight loss journey to help improve incontinence. Follow up in November. All questions/concerns were discussed. Pt. to call the office if heencounters any issues prior. Pt. acknowledges understanding. 2. Urinary urgency (R39.15: Urgency of urination) Pt. states she only experiences urgency during the night. #3. Asymptomatic microscopic hematuria UA today shows MODERATE blood. Cytology was atypia, favor reactive. FISH negative. Patient had been a patient of Dr. Desouza's has been on the various OAB medications and could not tolerate the side effects had Botox a year or so ago year and a half with plus or minus results when I scoped the patient she had pretty typical stress urinary incontinence but he weighed 250 pounds. I said lets see if. Anxious to get this resolved I see if he can lose 50 pounds and see what happens to your incontinence and your bladder issues and he is already underway losing weight dropped 10 pounds already. So I said I will see her in a few months such as november and revisit the bladder issues she may need a TVT. 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 Childs on 08/10/2022 13:08:17. Documentation recorded by the scribe, Aura Hernandez, accurately reflects the services(s) I performed and decisions made by me. Authenticated by Dr. Childs on 08/10/2022 13:25:59.13:08:17. Problem List/Past Medical History Ongoing Asthma Asymptomatic microscopic hematuria BMI 40.0-44.9, adult Fibromyalgia GERD (gastroesophageal reflux disease) Hiatal hernia History of colon polyps History of polymyalgia rheumatica Hypothyroidism Incontinence without sensory awareness Microhematuria Mixed incontinence Pure hypercholesterolemia Renal cyst Schatzki's ring Screening for malignant neoplasm of colon Stress incontinence Urge incontinence Urinary urgency Historical No qualifying data Procedure/Surgical History Injection of therapeutic substance into bladder wall (10/23/2020), Urodynamics (12/08/2017), Cystoscopy (10/17/2017), EGD - Esophagogastroduodenoscopy (04/2012), Colonoscopy (04/2010), EGD - Esophagogastroduodenoscopy (04/2010), Colonoscopy (09/2003), Biopsy of breast, Cholecystectomy, Colonoscopy, Tonsillectomy, Tubal ligation. Medications atorvastatin 40 mg Tab, 40 mg= 1 tab(s), Oral, Daily Keflex 500 mg Cap, 500 mg= 1 cap(s), Oral, Daily levothyroxine (more content not included)... Normal [facility] Comment on above: Result Comment: Elec tronically Signed By: Oh CHILDS MD\.br\Date and Time Signed: 08/10/22 13:26 EST\.br\Electronically Co-Signed By: Aura Hernandez\.br\Date and Time Co-Signed: 08/10/22 13:08 EST MG MAMM SCREEN 3D BK CADon 05-12-2022 MG MAMM SCREEN 3D BK CAD Patient: TARAH BRISENO Exam Date: 05/12/2022 : 1950 Gender:F Ordering : DR RAUL NGUYEN . Admission #: [id number] Family : Order #: [id number] CLICK HERE TO VIEW EXAM RADIOLOGY REPORT PROCEDURE: MAMMOGRAM SCREENING 3D BILATERAL CAD COMPARISON: MG MAMM SCREEN 3D BK CAD, 05/11/2021. INDICATIONS: Screening mammography Calculator Name NCI Breast Cancer Risk Assessment Tool 5 Year Breast Cancer Risk 2.60% Lifetime Breast Cancer Risk 8.00% Personal Breast Cancer No Personal Ovarian Cancer No Treatments None Family Cancers Grandmother-maternal with breast cancer at age 90; Mother with cervical cancer at age 45. LOCATION: [facility] BREAST COMPOSITION: Scattered areas fibroglandular density. FINDINGS: DIAGNOSTIC CATEGORY 2--BENIGN FINDING. NO CHANGE FROM COMPARISON. Bilateral linear scar markers. Scattered benign-appearing nodules are present. Scattered benign-appearing calcifications are present. Scattered benign-appearing lymph nodes are present. RIGHT BREAST: No significant suspicious finding. LEFT BREAST: No significant suspicious finding. RECOMMENDATIONS: ROUTINE MAMMOGRAM AND CLINICAL EVALUATION IN 12 MONTHS. PLEASE NOTE: A NORMAL MAMMOGRAM DOES NOT EXCLUDE THE POSSIBILITY OF BREAST CANCER. A CLINICALLY SUSPICIOUS PALPABLE LUMP SHOULD BE BIOPSIED. Dictated by: Gera Rubi MD on 05/12/2022 at 11:23 Approved by: Gera Rubi MD on 05/12/2022 at 11:25 Normal [facility] CBC AUTO DIFFon 03-31-2022 BASO # 0.0 103/ul Normal 0.0-0.1 [facility] Comment on above: Performed By: #### C BC #### [facility] [address] [address] [address] Altaf Hogue Basophils/100 WBC (Bld) 0.4 % Normal 0.2-2.0 [facility] Comment on above: Performed By: #### C BC #### [facility] [address] [address] [address] Altaf Hogue EO # 0.3 103/ul Normal 0.0-0.7 [place] [facility] Comment on above: Performed By: #### C BC #### [facility] [address] [place] [address] Dr. Altaf Hogue Eosinophils/100 WBC (Bld) 4.4 % Normal 0.9-7.0 [facility] Comment on above: Performed By: #### C BC #### [facility] [address] [place] [address] Dr. Altaf Hogue Erythrocyte distribution width (RBC) [Ratio] 13.5 % Normal 11.0-15.0 [facility] Comment on above: Performed By: #### C BC #### [facility] [address] [place] [address] Dr. Altaf Hogue Hematocrit (Bld) [Volume fraction] 44.4 % Normal 36.0-48.0 [facility] Comment on above: Performed By: #### C BC #### [facility] [address] [place] [address] Dr. Altaf Hogue Hemoglobin (Bld) [Mass/Vol] 14.3 g/dL Normal 12.0-16.0 [facility] Comment on above: Performed By: #### C BC #### [facility] [address] [place] [address] Dr. Altaf Hogue IG # 0.02 10e3/ul Normal 0.00-0.03 [facility] Comment on above: Performed By: #### C BC #### [facility] [address] [place] [address] Dr. Altaf Hogue IG % 0.3 % Normal 0.0-0.5 [facility] Comment on above: Performed By: #### C BC #### [facility] [address] [place] [address] Dr. Altaf Hogue LYMPH # 2.2 103/ul Normal 1.2-3.8 [facility] Comment on above: Performed By: #### C BC #### [facility] [address] [place] [address] Dr. Altaf Hogue Lymphocytes/100 WBC (Bld) 28.8 % Normal 20.5-60.0 [facility] Comment on above: Performed By: #### C BC #### [facility] [address] [place] [address] Dr. Altaf Hogue MANUAL DIFF REQ NO Normal [facility] Comment on above: Performed By: #### C BC #### [facility] [address] [place] [address] Dr. Altaf Hogue MCH (RBC) [Entitic mass] 29.0 pg Normal 26.7-34.0 [facility] Comment on above: Performed By: #### C BC #### [facility] [address] [place] [address] Dr. Altaf Hogue MCHC (RBC) [Mass/Vol] 32.2 g/dL Normal 29.9-35.2 [facility] Comment on above: Performed By: #### C BC #### [facility] [address] [place] [address] Dr. Altaf Hogue MCV (RBC) [Entitic vol] 90.1 fL Normal 81.0-99.0 [facility] Comment on above: Performed By: #### C BC #### [facility] [address] [place] [address] Dr. Altaf Hogue MONO # 0.6 103/ul Normal 0.3-0.8 [facility] Comment on above: Performed By: #### C BC #### [facility] [address] [place] [address] Dr. Altaf Hogue Monocytes/100 WBC (Bld) 8.5 % Normal 1.7-12.0 [facility] Comment on above: Performed By: #### C BC #### [facility] [address] [place] [address] Dr. Altaf Hogue NEUT # 4.3 103/ul Normal 1.4-6.5 [facility] Comment on above: Performed By: #### C BC #### [facility] [address] [place] [address] Dr. Altaf Hogue Neutrophils/100 WBC (Bld) 57.6 % Normal 43.0-75.0 [facility] Comment on above: Performed By: #### C BC #### [facility] [address] [place] [address] Dr. Altaf Hogue Platelet mean volume (Bld) [Entitic vol] 9.7 fL Normal 9.5-13.5 [facility] Comment on above: Performed By: #### C BC #### [facility] [address] [place] [address] Dr. Altaf Hogue PLT 286 103/ul Normal 150-450 [facility] Comment on above: Performed By: #### C BC #### [facility] [address] [place] [address] Dr. Altaf Hogue RBC 4.93 106/ul Normal 4.20-5.40 [facility] Comment on above: Performed By: #### C BC #### [facility] [address] [place] [address] Dr. Altaf Hogue WBC 7.5 103/ul Normal 4.0-11.0 [facility] Comment on above: Performed By: #### C BC #### [facility] [address] [place] [address] Dr. Altaf Hogue FREE T3on 03-31-2022 FREE T3 2.39 pg/mlL Normal 2.18-3.98 [facility] Comment on above: Performed By: #### T SH, FT3, LIPID, CMP #### [facility] [address] [place] [address] Dr. Altaf Hogue FREE T4on 03-31-2022 Free T4 [Mass/Vol] 1.04 ng/dL Normal 0.76-1.46 [facility] Comment on above: Performed By: #### F T4 #### [facility] [address] [place] [address] Dr. Altaf Hogue LIPID PROFILEon 03-31-2022 CHOL-HDL RATIO NORM SEE BELOW Normal [facility] Comment on above: Result Comment: 3.3 - 4.4 LOW RISK 4.4 - 7.1 AVERAGE RISK 7.1 - 11.0 MODERATE RISK >11.0 HIGH RISK Performed By: #### T SH, FT3, LIPID, CMP #### [facility] [address] [address] [address] Altaf Hogue Cholesterol [Mass/Vol] 142 mg/dL Normal <=200 [facility] Comment on above: Performed By: #### T SH, FT3, LIPID, CMP #### [facility] [address] [place] [address] Dr. Altaf Hogue Cholesterol in HDL [Mass/Vol] 59 mg/dL Normal 40-60 [facility] Comment on above: Performed By: #### T SH, FT3, LIPID, CMP #### [facility] [address] [place] [address] Dr. Altaf Hogue Cholesterol in LDL [Mass/Vol] 64.2 mg/dL Normal [facility] Comment on above: Performed By: #### T SH, FT3, LIPID, CMP #### [facility] [address] [place] [address] Dr. Altaf Hogue Cholesterol.total/C holesterol in HDL [Mass ratio] 2.4 {ratio} Normal [facility] Comment on above: Performed By: #### T SH, FT3, LIPID, CMP #### [facility] [address] [place] [address] Dr. Altaf Hogue HDL NORMAL > or = 60 mg/dl - LO W CARDIOVASCULAR RISK <40 mg/dl - HIGH CARDIOVASCULAR RISK Normal [facility] Comment on above: Performed By: #### T SH, FT3, LIPID, CMP #### [facility] [address] [place] [address] Dr. Altaf Hogue LDL CALC NORMAL SEE BELOW Normal [facility] Comment on above: Result Comment: <100 mg/dl OPTIMAL 100 - 129 mg/dl NEAR OR ABOVE OPTIMAL 130 - 159 mg/dl BORDERLINE HIGH 160 - 189 mg/dl HIGH >190 mg/dl VERY HIGH Performed By: #### T SH, FT3, LIPID, CMP #### [facility] [address] [address] [address] Altaf Hogue Triglyceride [Mass/Vol] 94 mg/dL Normal <=150 [facility] Comment on above: Performed By: #### T SH, FT3, LIPID, CMP #### [facility] [address] [address] [address] Altaf Hogue VLDL CALC 18.8 mg/dL Normal [facility] Comment on above: Performed By: #### T SH, FT3, LIPID, CMP #### [facility] [address] [place] [address] Dr. Altaf Hogue PROF 14(COMP METB)on 022 Albumin [Mass/Vol] 3.3 g/dL Critically low 3.4-5.0 [facility] Comment on above: Performed By: #### T SH, FT3, LIPID, CMP #### [facility] [address] [place] [address] Dr. Altaf Hogue Albumin/Globulin [Mass ratio] 0.9 {ratio} Normal [facility] Comment on above: Performed By: #### T SH, FT3, LIPID, CMP #### [facility] [address] [place] [address] Dr. Altaf Hogue ALP [Catalytic activity/Vol] 104 U/L Normal 46-116 [facility] Comment on above: Performed By: #### T SH, FT3, LIPID, CMP #### [facility] [address] [place] [address] Dr. Altaf Hogue ALT [Catalytic activity/Vol] 24 U/L Normal 14-59 [facility] Comment on above: Performed By: #### T SH, FT3, LIPID, CMP #### [facility] [address] [place] [address] Dr. Altaf Hogue Anion gap [Moles/Vol] 11.2 mmol/L Normal [facility] Comment on above: Performed By: #### T SH, FT3, LIPID, CMP #### [facility] [address] [place] [address] Dr. Altaf Hogue AST [Catalytic activity/Vol] 18 U/L Normal 15-37 [facility] Comment on above: Performed By: #### T SH, FT3, LIPID, CMP #### [facility] [address] [place] [address] Dr. Altaf Hogue Bilirubin [Mass/Vol] 0.4 mg/dL Normal 0.2-1.0 [facility] Comment on above: Performed By: #### T SH, FT3, LIPID, CMP #### [facility] [address] [place] [address] Dr. Altaf Hogue Calcium [Mass/Vol] 8.9 mg/dL Normal 8.5-10.1 [facility] Comment on above: Performed By: #### T SH, FT3, LIPID, CMP #### [facility] [address] [place] [address] Dr. Altaf Hogue Chloride [Moles/Vol] 107 mmol/L Normal 98-107 [facility] Comment on above: Performed By: #### T SH, FT3, LIPID, CMP #### [facility] [address] [place] [address] Dr. Altaf Hogue CO2 [Moles/Vol] 26.2 mmol/L Normal 21.0-32.0 [facility] Comment on above: Performed By: #### T SH, FT3, LIPID, CMP #### [facility] [address] [place] [address] Dr. Altaf Hogue Creatinine [Mass/Vol] 0.85 mg/dL Normal 0.55-1.02 [facility] Comment on above: Performed By: #### T SH, FT3, LIPID, CMP #### [facility] [address] [place] [address] Dr. Altaf Hogue EGFR-AF PORTUGUESE >60 Normal >=60 [facility] Comment on above: Performed By: #### T SH, FT3, LIPID, CMP #### [facility] [address] [place], [place] [id number] Dr. Altaf Hogue EGFR-NON AF PORTUGUESE >60 Normal >=60 [facility] Comment on above: Performed By: #### T SH, FT3, LIPID, CMP #### [facility] [address] [place] [address] Dr. Altaf Hogue Globulin (S) [Mass/Vol] 3.8 g/dL Normal [facility] Comment on above: Performed By: #### T SH, FT3, LIPID, CMP #### [facility] [address] [place] [address] Dr. Altaf Hogue Glucose [Mass/Vol] 88 mg/dL Normal 74-106 [facility] Comment on above: Performed By: #### T SH, FT3, LIPID, CMP #### [facility] [address] [place] [address] Dr. Altaf Hogue Potassium [Moles/Vol] 4.4 mmol/L Normal 3.5-5.1 [facility] Comment on above: Performed By: #### T SH, FT3, LIPID, CMP #### [facility] [address] [place] [address] Dr. Altaf Hogue Protein [Mass/Vol] 7.1 g/dL Normal 6.4-8.2 [facility] Comment on above: Performed By: #### T SH, FT3, LIPID, CMP #### [facility] [address] [place] [address] Dr. Altaf Hogue Sodium [Moles/Vol] 140 mmol/L Normal 136-145 [facility] Comment on above: Performed By: #### T SH, FT3, LIPID, CMP #### [facility] [address] [place] [address] Dr. Altaf Hogue Urea nitrogen [Mass/Vol] 15.0 mg/dL Normal 7.0-18.0 [facility] Comment on above: Performed By: #### T SH, FT3, LIPID, CMP #### [facility] [address] [place] [address] Dr. Altaf Hogue Urea nitrogen/Creatinine [Mass ratio] 17.6 mg/mg Normal [facility] Comment on above: Performed By: #### T SH, FT3, LIPID, CMP #### [facility] [address] [place], [place] [address] Dr. Altaf Hogue TSHon 03-31-2022 TSH 1.010 uIU/mL Normal 0.358-3.740 [facility] Comment on above: Performed By: #### T SH, FT3, LIPID, CMP #### [facility] [id number] Altaf Hogue CT ABD/PELVIS WO CONon 06-25 CT ABD/PELVIS WO CON EXAMINATION: CT ABD/PELVIS WO CON HISTORY: Microscopic hematuria , incontinence, urgency, frequency, renal cyst COMPARISON: No relevant comparison available. TECHNIQUE: Axial, Coronal, and Sagittal images were created without IV contrast. Dose reduction techniques were achieved by using automated exposure control and/or adjustment of mA and/or kV according to patient size and/or use of iterative reconstruction technique. FINDINGS: LUNG BASES: No visible pulmonary or pleural disease. LIVER: No enlargement, atrophy, abnormal density, or significant focal lesion. BILIARY: Cholecystectomy. PANCREAS: No lesion, fluid collection, ductal dilatation, or atrophy. SPLEEN: No enlargement or focal lesion. ADRENALS: No mass or enlargement. KIDNEYS: Projecting from right kidney is a 4.0 cm cyst favoring benign etiology. A few small parapelvic cysts bilaterally. No mass, obstruction, or calcification. Unremarkable ureters. BOWEL/MESENTERY: No visible mass, obstruction, or bowel wall thickening. AORTA/VASCULAR: No aneurysm or dissection. RETROPERITONEUM: No mass or adenopathy. LYMPH NODES: No adenopathy. URINARY BLADDER: No visible focal wall thickening, lesion, or calculus. PELVIC ORGANS: Suspect 1.6 cm cyst within right ovary. Unremarkable uterus and left ovary. ABDOMINAL WALL: Small fat filled umbilical hernia without strangulation. BONES: No bony lesion or fracture. Multilevel moderate degenerative disc disease. OTHER: Negative. IMPRESSION: 1. No urinary tract calculi, obstructive uropathy, or appreciable mass to account for patient's symptoms. 2. Possible 1.6 cm cyst within right ovary, not expected for patient's age. Consider ultrasound evaluation. Electronically authenticated by: DANIELLE YAP Date: 2021-06-25 13:32 Normal [facility] Vital Signs Date Time Vital Sign Value Performing Clinician Jasmin link 07-27-2023 10:34-0500 Blood Pressure Location Antonio YUSUF [facility] 07-27-2023 10:34-0500 Diastolic blood pressure 67 mm[Hg] Antonio YUSUF [facility] 07-27-2023 10:34-0500 Heart rate 62 /min Antonio YUSUF [facility] 07-27-2023 10:34-0500 Respiratory rate 16 /min Antnoio YUSUF [facility] 07-27-2023 10:34-0500 Systolic blood pressure 106 mm[Hg] Antonio YUSUF [facility] 08-10-2022 12:37-0500 Blood Pressure Location Oh RICE [facility] 08-10-2022 12:37-0500 Diastolic blood pressure 85 mm[Hg] Oh RICE [facility] 08-10-2022 12:37-0500 Heart rate 84 /min Oh RICE [facility] 08-10-2022 12:37-0500 Respiratory rate 16 /min Oh RICE [facility] 08-10-2022 12:37-0500 Systolic blood pressure 128 mm[Hg] Oh RICE [facility] 05-12-2022 13:16-0400 Blood Pressure Location Leonid GERBER [facility] [place] 10-26-2022 13:16-0400 Diastolic blood pressure 82 mm[Hg] Leonid MARSHALLL [facility] [place] 05-12-2022 13:16-0400 Heart rate 80 /min Leonid NILL [facility] [place] 05-12-2022 13:16-0400 Respiratory rate 16 /min Leonid MARSHALLL [facility] [place] 05-12-2022 13:16-0400 Systolic blood pressure 122 mm[Hg] Leonid NILL [facility] [place] 01-19-2022 09:43-0400 Blood Pressure Location Vida Desouza Jr. [facility] 01-19-2022 09:43-0400 Diastolic blood pressure 85 mm[Hg] Vida Desouza Jr. [facility] 01-19-2022 09:43-0400 Heart rate 82 /min Vida Desouza Jr. [facility] 01-19-2022 09:43-0400 Systolic blood pressure 134 mm[Hg] Vida Desouza Jr. [facility] 11-12-2021 11:37-0400 Blood Pressure Location Vida Desouza Jr. [facility] 11-12-2021 11:37-0400 Diastolic blood pressure 81 mm[Hg] Vida Desouza Jr. [facility] 11-12-2021 11:37-0400 Heart rate 78 /min Vida Desouza [facility] 11-12-2021 11:37-0400 Respiratory rate 16 /min Vida Desouza [facility] 11-12-2021 11:37-0400 Systolic blood pressure 132 mm[Hg] Vida Desouza [facility] Encounters Encounter Date Encounter Type Care Provider Facility Start: 07-27-2023 End: 07-27-2023 Patient encounter procedure Antonio Alonzo MADELIN [facility] Start: 07-21-2023 End: 07-21-2023 ambulatory SAMUEL SHORE Not Available Start: 05-19-2023 ambulatory MD Colby Escobar [facility] ity: [facility] Start: 05-10-2023 End: 05-11-2023 ambulatory MD Colby Escobar Facility:[facility] Start: 05-10-2023 End: 05-10-2023 Lab Drop off Colby Escobar [facility] Start: 04-14-2023 End: 04-15-2023 ambulatory MD Colby Escobar Facility: [facility] Start: 04-06-2023 End: 04-07-2023 ambulatory MD Colby Escobar Facility: [facility] [place] Start: 01-11-2023 End: 01-12-2023 ambulatory Oh CHILDS Facility:[facility] Start: 01-11-2023 End: 01-11-2023 Patient encounter procedure Oh CHILDS [facility] Start: 01-05-2023 End: 01-06-2023 ambulatory Oh CHILDS Facility:[facility] Start: 01-05-2023 End: 01-05-2023 Patient encounter procedure Oh CHILDS [facility] Start: 12-31-2022 End: 01-01-2023 ambulatory Oh CHILDS Facility:[facility] Start: 12-31-2022 End: 12-31-2022 Lab Drop off Oh CHILDS [facility] Start: 12-07-2022 End: 12-08-2022 ambulatory Oh CHILDS Facility:[facility] Start: 09-29-2022 End: 09-30-2022 ambulatory RAUL NGUYEN Facility:[facility] Start: 09-17-2022 ambulatory RAUL NGUYEN Facility:[facility] Start: 08-10-2022 End: 08-11-2022 ambulatory Oh CHILDS Facility:[facility] Start: 08-10-2022 End: 08-10-2022 Patient encounter procedure Oh CHILDS [facility] Start: 05-12-2022 End: 05-12-2022 Patient encounter procedure Leonid GERBER [facility] Start: 05-12-2022 End: 05-13-[address] RAUL NGUYEN Facility:[facility] Start: 03-31-2022 End: 04-01-[address] RAUL NGUYEN Facility:[facility] Start: 02-09-2022 End: 03-19-2022 Pre-admission assessment Vida Desouza Jr. [facility] Start: 01-20-2022 End: 02-05-2022 Pre-admission assessment Vida Desouza Jr. [facility] Start: 01-19-2022 End: 01-19-2022 Patient encounter procedure Vida Desouza Jr. [facility] Start: 11-12-2021 End: 11-12-2021 Patient encounter procedure Vida Desouza Jr. [facility] Start: 06-25-2021 End: 06-26-[address] RAUL NGUYEN Facility:[facility] Procedures Date Procedure Procedure Detail Performing Clinician Start: 10-23-2020 Injection of therapeutic substance into bladder wall Vida Desouza Jr. Start: 12-08-2017 Urodynamic studies Vida Desouza Jr. Start: 10-17-2017 Cystoscopy Vida Desouza Jr. Comment on above: with Urethral dilation Start: 04-17-2012 Esophagogastroduodenoscopy Leonid GERBER Start: 04-17-2010 Colonoscopy Leonid GERBER Start: 04-17-2010 Esophagogastroduodenoscopy Leonid GERBER Start: 09-16-2003 Colonoscopy Leonid GERBER Biopsy of breast Vida almanza Jr. Cholecystectomy Vida Desouza Jr. Colonoscopy Vida dAair Ligation of fallopian tube D wolf Desouza Jr. Tonsillectomy Vida tejada Plan of Treatment Date Care Activity Detail Author Start: 03-26-2024 ambulatory Ambulatory Facility:[facility] Start: 07-27-2023 ambulatory Ambulatory Facility:[facility] Immunizations Immunization Date Immunization Notes Care Provider Fa cility 03-24-2023 influenza virus vacc ine, unspecified formulation Colby Escobar [facility] 03-24-2023 SARS-CoV-2 (COVID-19 ) [id number] Colby Escobar [facility] 07-19-2022 SARS-CoV-2 (COVID-19 ) [id number] Oh CHILDS [facility] 03-30-2022 influenza virus vacc ine, unspecified formulation Oh CHILDS [facility] 05-19-2021 SARS-CoV-2 (COVID-19 ) mRNA-1273 vaccine Oh Buddy Drinks [facility] 04-24-2021 influenza virus vacc ine, unspecified formulation Oh CHILDS [facility] Comment on above: Result Comment: 2022: 67 10-04-2020 SARS-CoV-2 (COVID-19 ) mRNA-1273 vaccine Vida Desouza Jr. [facility] 09-06-2020 SARS-CoV-2 (COVID-19 ) mRNA-1273 vaccine Vidaedin Desouza Jr. [facility] 04-17-2020 influenza virus vacc ine, unspecified formulation Vidaedin Desouza Jr. [facility] 06-13-2019 influenza virus vacc ine, unspecified formulation Oh [employer] [facility] 05-18-2018 influenza virus vacc ine, unspecified formulation Oh [employer] [facility] 06-08-2015 influenza virus vacc ine, unspecified formulation Oh [employer] [facility] 04-28-2014 influenza virus vacc ine, unspecified formulation Oh [employer] [facility] 04-28-2014 pneumococcal polysaccharide vaccine, 23 valent Oh [employer] [facility] 05-13-2013 influenza virus vacc ine, unspecified formulation Oh [employer]dy [employer] [facility] Payers Date Payer Category Payer Medicare [id number] 1957 Medicare [id number] 1950 Unknown [id number] 2.16.84 [id number] 1950 Unknown [id number] 2.16.84 [id number] 1950 Unknown [id number] 2.16.84 0.1.240315.3.579.2.593 1952 Unknown [id number] 2.16.840 .[id number] 1952 Unknown [id number] 2.16.8 40.1.989202.3.579.2.727 1952 Unknown [id number] 2.16.8 40.1.902454.3.579.2.727 1952 Unknown [id number] 2.16.8 40.1.390386.3.579.2.727 1952 Unknown [id number] 2.16.8 40.1.831788.3.579.2.727 1952 Unknown [id number] 2.16.8 40.1.403015.3.579.2.727 1952 Unknown [id number] 2.16.8 40.1.039145.3.579.2.727 1952 Unknown [id number] 2.16.8 40.1.567379.3.579.2.727 1952 Unknown [id number] 2.16.8 40.1.624394.3.579.2.727 1952 Unknown [id number] 2.16.8 40.1.879859.3.579.2.727 1952 Unknown [id number] 2.16.8 40.1.243934.3.579.2.727 1952 Unknown [id number] 2.16.8 40.1.591590.3.579.2.727 1952 Unknown [id number] 2.16.8 40.1.159081.3.579.2.727 1952 Unknown [id number] 2.16.8 40.1.993680.3.579.2.727 1952 Unknown [id number] 2.16.8 40.1.970671.3.579.2.727 1952 Unknown [id number] 2.16.8 40.1.779011.3.579.2.727 Social History Date Type Detail Facility Start: 11-12-2021 End: 04-14-2023 Tobacco smoking status Never smoked tobacco (finding) [facility] Sex Assigned At Female [facility] Tobacco smoking status Never [facility] [place] Functional Status Date Assessment Result Facility 07-27-2023 Functional Status N/A [facility] 01-11-2023 Functional Status N/A [facility] 12-23-2022 Functional Status N/A [facility] 08-10-2022 Functional Status N/A [facility] 05-12-2022 Functional Status N/A General Rodríguez swapnil Montes De Oca 01-19-2022 Functional Status N/A [facility] Clinical Notes 11-12-2021 to 07-27-2023 Note Date & Type Note Facility 07-27-2023 Hospital Discharg e instructions Patient Education 07/27/2023 11:17:05 Urinary Incontinence Urinary Incontinence Urinary incontinence refers to a condition in which a person is unable to control where and when to pass urine. A person with this condition will urinate involuntarily. This means that the person urinates when he or she does not mean to. What are the causes? This condition may be caused by: Medicines. Infections. Constipation. Overactive bladder muscles. Weak bladder muscles. Weak pelvic floor muscles. These muscles provide support for the bladder, intestine, and, in women, the uterus. Enlarged prostate in men. The prostate is a gland near the bladder. When it gets too big, it can pinch the urethra. With the urethra blocked, the bladder can weaken and lose the ability to empty properly. Surgery. Emotional factors, such as anxiety, stress, or post-traumatic stress disorder (PTSD). Spinal cord injury, nerve injury, or other neurological conditions. Pelvic organ prolapse. This happens in women when organs move out of place and into the vagina. This movement can prevent the bladder and urethra from working properly. What increases the risk? The following factors may make you more likely to develop this condition: Age. The older you are, the higher the risk. Obesity. Being physically inactive. and childbirth. Menopause. Diseases that affect the nerves or spinal cord. Long-term, or chronic, coughing. This can increase pressure on the bladder and pelvic floor muscles. What are the signs or symptoms? Symptoms may vary depending on the type of urinary incontinence you have. They include: A sudden urge to urinate, and passing urine involuntarily before you can get to a bathroom (urge incontinence). Suddenly passing urine when doing activities that force urine to pass, such as coughing, laughing, exercising, or sneezing (stress incontinence). Needing to urinate often but urinating only a small amount, or constantly dribbling urine (overflow incontinence). Urinating because you cannot get to the bathroom in time due to a physical disability, such as arthritis or injury, or due to a communication or thinking problem, such as Alzheimer's disease (functional incontinence). How is this diagnosed? This condition may be diagnosed based on: Your medical history. A physical exam. Tests, such as: ?Urine tests. ?X-rays of your kidney and bladder. ?Ultrasound. ?CT scan. ?Cystoscopy. In this procedure, a health care provider inserts a tube with a light and camera (cystoscope) through the urethra and into the bladder to check for problems. ?Urodynamic testing. These tests assess how well the bladder, urethra, and sphincter can store and release urine. There are different types of urodynamic tests, and they vary depending on what the test is measuring. To help diagnose your condition, your health care provider may recommend that you keep a log of when you urinate and how much you urinate. How is this treated? Treatment for this condition depends on the type of incontinence that you have and its cause. Treatment may include: Lifestyle changes, such as: ?Quitting smoking. ?Maintaining a healthy weight. ?Staying active. Try to get 150 minutes of moderate-intensity exercise every week. Ask your health care provider which activities are safe for you. ?Eating a healthy diet. ?Avoid high-fat foods, like fried foods. ?Avoid refined carbohydrates like white bread and white rice. ?Limit how much alcohol and caffeine you drink. ?Increase your fiber intake. Healthy sources of fiber include beans, whole grains, and fresh fruits and vegetables. Behavioral changes, such as: ?Pelvic floor muscle exercises. ?Bladder training, such as lengthening the amount of time between bathroom breaks, or using the bathroom at regular intervals. ?Using techniques to suppress bladder urges. This can include distraction techniques or controlled breathing exercises. Medicines, such as: ?Medicines to relax the bladder muscles and prevent bladder spasms. ?Medicines to help slow or prevent the growth of a man's prostate. ?Botox injections. These can help relax the bladder muscles. Treatments, such as: ?Using pulses of electricity to help change bladder reflexes (electrical nerve stimulation). ?For women, using a territory sales manager medical to prevent urine leaks. This is a small, tampon-like, disposable device that is inserted into the urethra. ?Injecting collagen or carbon beads (bulking agents) into the urinary sphincter. These can help thicken tissue and close the bladder opening. ?Surgery. Follow these instructions at home: Lifestyle Limit alcohol and caffeine. These can fill your bladder quickly and irritate it. Keep yourself clean to help prevent odors and skin damage. Ask your health care provider about special skin creams and cleansers that can protect the skin from urine. Consider wearing pads or adult diapers. Make sure to change them regularly, and always change them right after experiencing incontinence. General instructions Take unuo-aqr-norkvkk and prescription medicines only as told by your health care provider. Use the bathroom about every 3 4 hours, even if you do not feel the need to urinate. Try to empty your bladder completely every time. After urinating, wait a minute. Then try to urinate again. Make sure you are in a relaxed position while urinating. If your incontinence is caused by nerve problems, keep a log of the medicines you take and the times you go to the bathroom. Keep all follow-up visits. This is important. Where to find more information [employer] [place] [employer] and [employer]estive and Kidney Diseases: www.niddk.nih.gov [employer] [employer]: www.urologyhealth.org Contact a health care provider if: You have pain that gets worse. Your incontinence gets worse. Get help right away if: You have a fever or chills. You are unable to urinate. You have redness in your groin area or down your legs. Summary Urinary incontinence refers to a condition in which a person is unable to control where and when to pass urine. This condition may be caused by medicines, infection, weak bladder muscles, weak pelvic floor muscles, enlargement of the prostate (in men), or surgery. Factors such as older age, obesity, and childbirth, menopause, neurological diseases, and chronic coughing may increase your risk for developing this condition. Types of urinary incontinence include urge incontinence, stress incontinence, overflow incontinence, and functional incontinence. This condition is usually treated first with lifestyle and behavioral changes, such as quitting smoking, eating a healthier diet, and doing regular pelvic floor exercises. Other treatment options include medicines, bulking agents, medical devices, electrical nerve stimulation, or surgery. This information is not intended to replace advice given to you by your health care provider. Make sure you discuss any questions you have with your health care provider. Document Revised: 02/06/2021 Document Reviewed: 02/06/2021 [email or web address] Patient Education 2022 [employer]. Follow Up Care 01/11/2023 10:33:06 With:MADELIN CORDOBA, Antonio Alonzo, JEN Address: [facility] [address] [place] [phone]- When: Unknown [facility] 01-11-2023 Hospital Discharg e instructions Patient Education 01/11/2023 10:24:38 Overactive Bladder, Adult Overactive Bladder, Adult Overactive bladder is a condition in which a person has a sudden and frequent need to urinate. A person might also leak urine if he or she cannot get to the bathroom fast enough (urinary incontinence). Sometimes, symptoms can interfere with work or social activities. What are the causes? Overactive bladder is associated with poor nerve signals between your bladder and your brain. Your bladder may get the signal to empty before it is full. You may also have very sensitive muscles that make your bladder squeeze too soon. This condition may also be caused by other factors, such as: Medical conditions: ?Urinary tract infection. ?Infection of nearby tissues. ?Prostate enlargement. ?Bladder stones, inflammation, or tumors. ?Diabetes. ?Muscle or nerve weakness, especially from these conditions: ?A spinal cord injury. ?Stroke. ?Multiple sclerosis. ?Parkinson's disease. Other causes: ?Surgery on the uterus or urethra. ?Drinking too much caffeine or alcohol. ?Certain medicines, especially those that eliminate extra fluid in the body (diuretics). ?Constipation. What increases the risk? You may be at greater risk for overactive bladder if you: Are an older adult. Smoke. Are going through menopause. Have prostate problems. Have a neurological disease, such as stroke, dementia, Parkinson's disease, or multiple sclerosis (MS). Eat or drink alcohol, spicy food, caffeine, and other things that irritate the bladder. Are overweight or obese. What are the signs or symptoms? Symptoms of this condition include a sudden, strong urge to urinate. Other symptoms include: Leaking urine. Urinating 8 or more times a day. Waking up to urinate 2 or more times overnight. How is this diagnosed? This condition may be diagnosed based on: Your symptoms and medical history. A physical exam. Blood or urine tests to check for possible causes, such as infection. You may also need to see a health care provider who specializes in urinary tract problems. This is called a urologist. How is this treated? Treatment for overactive bladder depends on the cause of your condition and whether it is mild or severe. Treatment may include: Bladder training, such as: ?Learning to control the urge to urinate by following a schedule to urinate at regular intervals. ?Doing Kegel exercises to strengthen the pelvic floor muscles that support your bladder. Special devices, such as: ?Biofeedback. This uses sensors to help you become aware of your body's signals. ?Electrical stimulation. This uses electrodes placed inside the body (implanted) or outside the body. These electrodes send gentle pulses of electricity to strengthen the nerves or muscles that control the bladder. ?Women may use a plastic device, called a pessary, that fits into the vagina and supports the bladder. Medicines, such as: ?Antibiotics to treat bladder infection. ?Antispasmodics to stop the bladder from releasing urine at the wrong time. ?Tricyclic antidepressants to relax bladder muscles. ?Injections of botulinum toxin type A directly into the bladder tissue to relax bladder muscles. Surgery, such as: ?A device may be implanted to help manage the nerve signals that control urination. ?An electrode may be implanted to stimulate electrical signals in the bladder. ?A procedure may be done to change the shape of the bladder. This is done only in very severe cases. Follow these instructions at home: Eating and drinking Make diet or lifestyle changes recommended by your health care provider. These may include: ?Drinking fluids throughout the day and not only with meals. ?Cutting down on caffeine or alcohol. ?Eating a healthy and balanced diet to prevent constipation. This may include: ?Choosing foods that are high in fiber, such as beans, whole grains, and fresh fruits and vegetables. ?Limiting foods that are high in fat and processed sugars, such as fried and sweet foods. Lifestyle Lose weight if needed. Do not use any products that contain nicotine or tobacco. These include cigarettes, chewing tobacco, and vaping devices, such as e-cigarettes. If you need help quitting, ask your health care provider. General instructions Take fbac-tqo-vvqndtm and prescription medicines only as told by your health care provider. If you were prescribed an antibiotic medicine, take it as told by your health care provider. Do not stop taking the antibiotic even if you start to feel better. Use any implants or pessary as told by your health care provider. If needed, wear pads to absorb urine leakage. Keep a log to track how much and when you drink, and when you need to urinate. This will help your health care provider monitor your condition. Keep all follow-up visits. This is important. Contact a health care provider if: You have a fever or chills. Your symptoms do not get better with treatment. Your pain and discomfort get worse. You have more frequent urges to urinate. Get help right away if: You are not able to control your bladder. Summary Overactive bladder refers to a condition in which a person has a sudden and frequent need to urinate. Several conditions may lead to an overactive bladder. Treatment for overactive bladder depends on the cause and severity of your condition. Making lifestyle changes, doing Kegel exercises, keeping a log, and taking medicines can help with this condition. This information is not intended to replace advice given to you by your health care provider. Make sure you discuss any questions you have with your health care provider. Document Revised: 03/23/2021 Document Reviewed: 03/23/2021 [email or web address] Patient Education 2022 [employer]. Follow Up Care 12/07/2022 09:30:53 With:WOLFGANG CORDOBA, Oh Bradshaw, URL Address: [address] [place] [address] [place] [address]- [phone] When:Within 6 Month(s) Comments:Dr. Yusuf [facility] 01-05-2023 Note [id number]:[id number] [facility] 12-07-2022 Hospital Discharg e instructions Follow Up Care 12/07/2022 09:39:03 With:Oh CHILDS Address: [address] [place] [address] [place] [address]- Business (1) When:1 week With:Oh CHILDS Address: [address] [place] [address] [place] [address]- Business (1) When: Unknown [facility] 01-24-2023 Hospital Discharg e instructions Patient Education 08/10/2022 13:07:29 Urinary Incontinence Urinary Incontinence Urinary incontinence refers to a condition in which a person is unable to control where and when to pass urine. A person with this condition will urinate when he or she does not mean to (involuntarily). What are the causes? This condition may be caused by: Medicines. Infections. Constipation. Overactive bladder muscles. Weak bladder muscles. Weak pelvic floor muscles. These muscles provide support for the bladder, intestine, and, in women, the uterus. Enlarged prostate in men. The prostate is a gland near the bladder. When it gets too big, it can pinch the urethra. With the urethra blocked, the bladder can weaken and lose the ability to empty properly. Surgery. Emotional factors, such as anxiety, stress, or post-traumatic stress disorder (PTSD). Pelvic organ prolapse. This happens in women when organs shift out of place and into the vagina. This shift can prevent the bladder and urethra from working properly. What increases the risk? The following factors may make you more likely to develop this condition: Older age. Obesity and physical inactivity. and childbirth. Menopause. Diseases that affect the nerves or spinal cord (neurological diseases). Long-term (chronic) coughing. This can increase pressure on the bladder and pelvic floor muscles. What are the signs or symptoms? Symptoms may vary depending on the type of urinary incontinence you have. They include: A sudden urge to urinate, but passing urine involuntarily before you can get to a bathroom (urge incontinence). Suddenly passing urine with any activity that forces urine to pass, such as coughing, laughing, exercise, or sneezing (stress incontinence). Needing to urinate often, but urinating only a small amount, or constantly dribbling urine (overflow incontinence). Urinating because you cannot get to the bathroom in time due to a physical disability, such as arthritis or injury, or communication and thinking problems, such as Alzheimer disease (functional incontinence). How is this diagnosed? This condition may be diagnosed based on: Your medical history. A physical exam. Tests, such as: ?Urine tests. ?X-rays of your kidney and bladder. ?Ultrasound. ?CT scan. ?Cystoscopy. In this procedure, a health care provider inserts a tube with a light and camera (cystoscope) through the urethra and into the bladder in order to check for problems. ?Urodynamic testing. These tests assess how well the bladder, urethra, and sphincter can store and release urine. There are different types of urodynamic tests, and they vary depending on what the test is measuring. To help diagnose your condition, your health care provider may recommend that you keep a log of when you urinate and how much you urinate. How is this treated? Treatment for this condition depends on the type of incontinence that you have and its cause. Treatment may include: Lifestyle changes, such as: ?Quitting smoking. ?Maintaining a healthy weight. ?Staying active. Try to get 150 minutes of moderate-intensity exercise every week. Ask your health care provider which activities are safe for you. ?Eating a healthy diet. ?Avoid high-fat foods, like fried foods. ?Avoid refined carbohydrates like white bread and white rice. ?Limit how much alcohol and caffeine you drink. ?Increase your fiber intake. Foods such as fresh fruits, vegetables, beans, and whole grains are healthy sources of fiber. Pelvic floor muscle exercises. Bladder training, such as lengthening the amount of time between bathroom breaks, or using the bathroom at regular intervals. Using techniques to suppress bladder urges. This can include distraction techniques or controlled breathing exercises. Medicines to relax the bladder muscles and prevent bladder spasms. Medicines to help slow or prevent the growth of a man's prostate. Botox injections. These can help relax the bladder muscles. Using pulses of electricity to help change bladder reflexes (electrical nerve stimulation). For women, using a territory sales manager medical to prevent urine leaks. This is a small, tampon-like, disposable device that is inserted into the urethra. Injecting collagen or carbon beads (bulking agents) into the urinary sphincter. These can help thicken tissue and close the bladder opening. Surgery. Follow these instructions at home: Lifestyle Limit alcohol and caffeine. These can fill your bladder quickly and irritate it. Keep yourself clean to help prevent odors and skin damage. Ask your doctor about special skin creams and cleansers that can protect the skin from urine. Consider wearing pads or adult diapers. Make sure to change them regularly, and always change them right after experiencing incontinence. General instructions Take fxgu-kzj-oeerymu and prescription medicines only as told by your health care provider. Use the bathroom about every 3 4 hours, even if you do not feel the need to urinate. Try to empty your bladder completely every time. After urinating, wait a minute. Then try to urinate again. Make sure you are in a relaxed position while urinating. If your incontinence is caused by nerve problems, keep a log of the medicines you take and the times you go to the bathroom. Keep all follow-up visits as told by your health care provider. This is important. Contact a health care provider if: You have pain that gets worse. Your incontinence gets worse. Get help right away if: You have a fever or chills. You are unable to urinate. You have redness in your groin area or down your legs. Summary Urinary incontinence refers to a condition in which a person is unable to control where and when to pass urine. This condition may be caused by medicines, infection, weak bladder muscles, weak pelvic floor muscles, enlargement of the prostate (in men), or surgery. The following factors increase your risk for developing this condition: older age, obesity, and childbirth, menopause, neurological diseases, and chronic coughing. There are several types of urinary incontinence. They include urge incontinence, stress incontinence, overflow incontinence, and functional incontinence. This condition is usually treated first with lifestyle and behavioral changes, such as quitting smoking, eating a healthier diet, and doing regular pelvic floor exercises. Other treatment options include medicines, bulking agents, medical devices, electrical nerve stimulation, or surgery. This information is not intended to replace advice given to you by your health care provider. Make sure you discuss any questions you have with your health care provider. Document Released: 08/11/2005 Document Revised: 07/14/2018 Document Reviewed: 10/13/2017 [email or web address] Patient Education 2020 [employer]. Follow Up Care 07/07/2022 12:08:02 With:WOLFGANG CORDOBA, Oh Bradshaw, URL Address: [address] [place], [place] [phone]- When: Unknown [facility] 01-19-2022 Hospital Discharg e instructions Patient Education 01/19/2022 10:43:19 Overactive Bladder, Adult Overactive Bladder, Adult Overactive bladder refers to a condition in which a person has a sudden need to pass urine. The person may leak urine if he or she cannot get to the bathroom fast enough (urinary incontinence). A person with this condition may also wake up several times in the night to go to the bathroom. Overactive bladder is associated with poor nerve signals between your bladder and your brain. Your bladder may get the signal to empty before it is full. You may also have very sensitive muscles that make your bladder squeeze too soon. These symptoms might interfere with daily work or social activities. What are the causes? This condition may be associated with or caused by: Urinary tract infection. Infection of nearby tissues, such as the prostate. Prostate enlargement. Surgery on the uterus or urethra. Bladder stones, inflammation, or tumors. Drinking too much caffeine or alcohol. Certain medicines, especially medicines that get rid of extra fluid in the body (diuretics). Muscle or nerve weakness, especially from: ?A spinal cord injury. ?Stroke. ?Multiple sclerosis. ?Parkinson's disease. Diabetes. Constipation. What increases the risk? You may be at greater risk for overactive bladder if you: Are an older adult. Smoke. Are going through menopause. Have prostate problems. Have a neurological disease, such as stroke, dementia, Parkinson's disease, or multiple sclerosis (MS). Eat or drink things that irritate the bladder. These include alcohol, spicy food, and caffeine. Are overweight or obese. What are the signs or symptoms? Symptoms of this condition include: Sudden, strong urge to urinate. Leaking urine. Urinating 8 or more times a day. Waking up to urinate 2 or more times a night. How is this diagnosed? Your health care provider may suspect overactive bladder based on your symptoms. He or she will diagnose this condition by: A physical exam and medical history. Blood or urine tests. You might need bladder or urine tests to help determine what is causing your overactive bladder. You might also need to see a health care provider who specializes in urinary tract problems (urologist). How is this treated? Treatment for overactive bladder depends on the cause of your condition and whether it is mild or severe. You can also make lifestyle changes at home. Options include: Bladder training. This may include: ?Learning to control the urge to urinate by following a schedule that directs you to urinate at regular intervals (timed voiding). ?Doing Kegel exercises to strengthen your pelvic floor muscles, which support your bladder. Toning these muscles can help you control urination, even if your bladder muscles are overactive. Special devices. This may include: ?Biofeedback, which uses sensors to help you become aware of your body's signals. ?Electrical stimulation, which uses electrodes placed inside the body (implanted) or outside the body. These electrodes send gentle pulses of electricity to strengthen the nerves or muscles that control the bladder. ?Women may use a plastic device that fits into the vagina and supports the bladder (pessary). Medicines. ?Antibiotics to treat bladder infection. ?Antispasmodics to stop the bladder from releasing urine at the wrong time. ?Tricyclic antidepressants to relax bladder muscles. ?Injections of botulinum toxin type A directly into the bladder tissue to relax bladder muscles. Lifestyle changes. This may include: ?Weight loss. Talk to your health care provider about weight loss methods that would work best for you. ?Diet changes. This may include reducing how much alcohol and caffeine you consume, or drinking fluids at different times of the day. ?Not smoking. Do not use any products that contain nicotine or tobacco, such as cigarettes and e-cigarettes. If you need help quitting, ask your health care provider. Surgery. ?A device may be implanted to help manage the nerve signals that control urination. ?An electrode may be implanted to stimulate electrical signals in the bladder. ?A procedure may be done to change the shape of the bladder. This is done only in very severe cases. Follow these instructions at home: Lifestyle Make any diet or lifestyle changes that are recommended by your health care provider. These may include: ?Drinking less fluid or drinking fluids at different times of the day. ?Cutting down on caffeine or alcohol. ?Doing Kegel exercises. ?Losing weight if needed. ?Eating a healthy and balanced diet to prevent constipation. This may include: ?Eating foods that are high in fiber, such as fresh fruits and vegetables, whole grains, and beans. ?Limiting foods that are high in fat and processed sugars, such as fried and sweet foods. General instructions Take xcbj-ypd-drdofzy and prescription medicines only as told by your health care provider. If you were prescribed an antibiotic medicine, take it as told by your health care provider. Do not stop taking the antibiotic even if you start to feel better. Use any implants or pessary as told by your health care provider. If needed, wear pads to absorb urine leakage. Keep a journal or log to track how much and when you drink and when you feel the need to urinate. This will help your health care provider monitor your condition. Keep all follow-up visits as told by your health care provider. This is important. Contact a health care provider if: You have a fever. Your symptoms do not get better with treatment. Your pain and discomfort get worse. You have more frequent urges to urinate. Get help right away if: You are not able to control your bladder. Summary Overactive bladder refers to a condition in which a person has a sudden need to pass urine. Several conditions may lead to an overactive bladder. Treatment for overactive bladder depends on the cause and severity of your condition. Follow your health care provider's instructions about lifestyle changes, doing Kegel exercises, keeping a journal, and taking medicines. This information is not intended to replace advice given to you by your health care provider. Make sure you discuss any questions you have with your health care provider. Document Released: 04/30/2010 Document Revised: 10/25/2019 Document Reviewed: 07/20/2018 [employer][email or web address] Patient Education 2019 [employer]. Follow Up Care 01/06/2021 11:55:31 With:Deo Fermin MD, Vida Diaz, URO Address: [facility] [address] , [place] [address]- [phone] When: Unknown [facility] 11-12-2021 Hospital Discharg e instructions Patient Education 11/12/2021 12:04:10 Urinary Incontinence Urinary Incontinence Urinary incontinence refers to a condition in which a person is unable to control where and when to pass urine. A person with this condition will urinate when he or she does not mean to (involuntarily). What are the causes? This condition may be caused by: Medicines. Infections. Constipation. Overactive bladder muscles. Weak bladder muscles. Weak pelvic floor muscles. These muscles provide support for the bladder, intestine, and, in women, the uterus. Enlarged prostate in men. The prostate is a gland near the bladder. When it gets too big, it can pinch the urethra. With the urethra blocked, the bladder can weaken and lose the ability to empty properly. Surgery. Emotional factors, such as anxiety, stress, or post-traumatic stress disorder (PTSD). Pelvic organ prolapse. This happens in women when organs shift out of place and into the vagina. This shift can prevent the bladder and urethra from working properly. What increases the risk? The following factors may make you more likely to develop this condition: Older age. Obesity and physical inactivity. and childbirth. Menopause. Diseases that affect the nerves or spinal cord (neurological diseases). Long-term (chronic) coughing. This can increase pressure on the bladder and pelvic floor muscles. What are the signs or symptoms? Symptoms may vary depending on the type of urinary incontinence you have. They include: A sudden urge to urinate, but passing urine involuntarily before you can get to a bathroom (urge incontinence). Suddenly passing urine with any activity that forces urine to pass, such as coughing, laughing, exercise, or sneezing (stress incontinence). Needing to urinate often, but urinating only a small amount, or constantly dribbling urine (overflow incontinence). Urinating because you cannot get to the bathroom in time due to a physical disability, such as arthritis or injury, or communication and thinking problems, such as Alzheimer disease (functional incontinence). How is this diagnosed? This condition may be diagnosed based on: Your medical history. A physical exam. Tests, such as: ?Urine tests. ?X-rays of your kidney and bladder. ?Ultrasound. ?CT scan. ?Cystoscopy. In this procedure, a health care provider inserts a tube with a light and camera (cystoscope) through the urethra and into the bladder in order to check for problems. ?Urodynamic testing. These tests assess how well the bladder, urethra, and sphincter can store and release urine. There are different types of urodynamic tests, and they vary depending on what the test is measuring. To help diagnose your condition, your health care provider may recommend that you keep a log of when you urinate and how much you urinate. How is this treated? Treatment for this condition depends on the type of incontinence that you have and its cause. Treatment may include: Lifestyle changes, such as: ?Quitting smoking. ?Maintaining a healthy weight. ?Staying active. Try to get 150 minutes of moderate-intensity exercise every week. Ask your health care provider which activities are safe for you. ?Eating a healthy diet. ?Avoid high-fat foods, like fried foods. ?Avoid refined carbohydrates like white bread and white rice. ?Limit how much alcohol and caffeine you drink. ?Increase your fiber intake. Foods such as fresh fruits, vegetables, beans, and whole grains are healthy sources of fiber. Pelvic floor muscle exercises. Bladder training, such as lengthening the amount of time between bathroom breaks, or using the bathroom at regular intervals. Using techniques to suppress bladder urges. This can include distraction techniques or controlled breathing exercises. Medicines to relax the bladder muscles and prevent bladder spasms. Medicines to help slow or prevent the growth of a man's prostate. Botox injections. These can help relax the bladder muscles. Using pulses of electricity to help change bladder reflexes (electrical nerve stimulation). For women, using a territory sales manager medical to prevent urine leaks. This is a small, tampon-like, disposable device that is inserted into the urethra. Injecting collagen or carbon beads (bulking agents) into the urinary sphincter. These can help thicken tissue and close the bladder opening. Surgery. Follow these instructions at home: Lifestyle Limit alcohol and caffeine. These can fill your bladder quickly and irritate it. Keep yourself clean to help prevent odors and skin damage. Ask your doctor about special skin creams and cleansers that can protect the skin from urine. Consider wearing pads or adult diapers. Make sure to change them regularly, and always change them right after experiencing incontinence. General instructions Take yxsh-bqj-nqntmge and prescription medicines only as told by your health care provider. Use the bathroom about every 3 4 hours, even if you do not feel the need to urinate. Try to empty your bladder completely every time. After urinating, wait a minute. Then try to urinate again. Make sure you are in a relaxed position while urinating. If your incontinence is caused by nerve problems, keep a log of the medicines you take and the times you go to the bathroom. Keep all follow-up visits as told by your health care provider. This is important. Contact a health care provider if: You have pain that gets worse. Your incontinence gets worse. Get help right away if: You have a fever or chills. You are unable to urinate. You have redness in your groin area or down your legs. Summary Urinary incontinence refers to a condition in which a person is unable to control where and when to pass urine. This condition may be caused by medicines, infection, weak bladder muscles, weak pelvic floor muscles, enlargement of the prostate (in men), or surgery. The following factors increase your risk for developing this condition: older age, obesity, and childbirth, menopause, neurological diseases, and chronic coughing. There are several types of urinary incontinence. They include urge incontinence, stress incontinence, overflow incontinence, and functional incontinence. This condition is usually treated first with lifestyle and behavioral changes, such as quitting smoking, eating a healthier diet, and doing regular pelvic floor exercises. Other treatment options include medicines, bulking agents, medical devices, electrical nerve stimulation, or surgery. This information is not intended to replace advice given to you by your health care provider. Make sure you discuss any questions you have with your health care provider. Document Released: 08/11/2005 Document Revised: 07/14/2018 Document Reviewed: 10/13/2017 [employer]me Patient Education 2020 [employer]. 11/12/2021 12:04:09 Overactive Bladder, Adult Overactive Bladder, Adult Overactive bladder refers to a condition in which a person has a sudden need to pass urine. The person may leak urine if he or she cannot get to the bathroom fast enough (urinary incontinence). A person with this condition may also wake up several times in the night to go to the bathroom. Overactive bladder is associated with poor nerve signals between your bladder and your brain. Your bladder may get the signal to empty before it is full. You may also have very sensitive muscles that make your bladder squeeze too soon. These symptoms might interfere with daily work or social activities. What are the causes? This condition may be associated with or caused by: Urinary tract infection. Infection of nearby tissues, such as the prostate. Prostate enlargement. Surgery on the uterus or urethra. Bladder stones, inflammation, or tumors. Drinking too much caffeine or alcohol. Certain medicines, especially medicines that get rid of extra fluid in the body (diuretics). Muscle or nerve weakness, especially from: ?A spinal cord injury. ?Stroke. ?Multiple sclerosis. ?Parkinson's disease. Diabetes. Constipation. What increases the risk? You may be at greater risk for overactive bladder if you: Are an older adult. Smoke. Are going through menopause. Have prostate problems. Have a neurological disease, such as stroke, dementia, Parkinson's disease, or multiple sclerosis (MS). Eat or drink things that irritate the bladder. These include alcohol, spicy food, and caffeine. Are overweight or obese. What are the signs or symptoms? Symptoms of this condition include: Sudden, strong urge to urinate. Leaking urine. Urinating 8 or more times a day. Waking up to urinate 2 or more times a night. How is this diagnosed? Your health care provider may suspect overactive bladder based on your symptoms. He or she will diagnose this condition by: A physical exam and medical history. Blood or urine tests. You might need bladder or urine tests to help determine what is causing your overactive bladder. You might also need to see a health care provider who specializes in urinary tract problems (urologist). How is this treated? Treatment for overactive bladder depends on the cause of your condition and whether it is mild or severe. You can also make lifestyle changes at home. Options include: Bladder training. This may include: ?Learning to control the urge to urinate by following a schedule that directs you to urinate at regular intervals (timed voiding). ?Doing Kegel exercises to strengthen your pelvic floor muscles, which support your bladder. Toning these muscles can help you control urination, even if your bladder muscles are overactive. Special devices. This may include: ?Biofeedback, which uses sensors to help you become aware of your body's signals. ?Electrical stimulation, which uses electrodes placed inside the body (implanted) or outside the body. These electrodes send gentle pulses of electricity to strengthen the nerves or muscles that control the bladder. ?Women may use a plastic device that fits into the vagina and supports the bladder (pessary). Medicines. ?Antibiotics to treat bladder infection. ?Antispasmodics to stop the bladder from releasing urine at the wrong time. ?Tricyclic antidepressants to relax bladder muscles. ?Injections of botulinum toxin type A directly into the bladder tissue to relax bladder muscles. Lifestyle changes. This may include: ?Weight loss. Talk to your health care provider about weight loss methods that would work best for you. ?Diet changes. This may include reducing how much alcohol and caffeine you consume, or drinking fluids at different times of the day. ?Not smoking. Do not use any products that contain nicotine or tobacco, such as cigarettes and e-cigarettes. If you need help quitting, ask your health care provider. Surgery. ?A device may be implanted to help manage the nerve signals that control urination. ?An electrode may be implanted to stimulate electrical signals in the bladder. ?A procedure may be done to change the shape of the bladder. This is done only in very severe cases. Follow these instructions at home: Lifestyle Make any diet or lifestyle changes that are recommended by your health care provider. These may include: ?Drinking less fluid or drinking fluids at different times of the day. ?Cutting down on caffeine or alcohol. ?Doing Kegel exercises. ?Losing weight if needed. ?Eating a healthy and balanced diet to prevent constipation. This may include: ?Eating foods that are high in fiber, such as fresh fruits and vegetables, whole grains, and beans. ?Limiting foods that are high in fat and processed sugars, such as fried and sweet foods. General instructions Take jnql-pwx-aitwqad and prescription medicines only as told by your health care provider. If you were prescribed an antibiotic medicine, take it as told by your health care provider. Do not stop taking the antibiotic even if you start to feel better. Use any implants or pessary as told by your health care provider. If needed, wear pads to absorb urine leakage. Keep a journal or log to track how much and when you drink and when you feel the need to urinate. This will help your health care provider monitor your condition. Keep all follow-up visits as told by your health care provider. This is important. Contact a health care provider if: You have a fever. Your symptoms do not get better with treatment. Your pain and discomfort get worse. You have more frequent urges to urinate. Get help right away if: You are not able to control your bladder. Summary Overactive bladder refers to a condition in which a person has a sudden need to pass urine. Several conditions may lead to an overactive bladder. Treatment for overactive bladder depends on the cause and severity of your condition. Follow your health care provider's instructions about lifestyle changes, doing Kegel exercises, keeping a journal, and taking medicines. This information is not intended to replace advice given to you by your health care provider. Make sure you discuss any questions you have with your health care provider. Document Released: 04/30/2010 Document Revised: 10/25/2019 Document Reviewed: 07/20/2018 [employer] Patient Education 2020 [employer] Follow Up Care 07/09/2021 11:32:05 With:Deo Fermin MD, Vida Diaz, URO Address: [phone] When:01/12/2022 [facility] Evaluation + Plan note Future Appointments Appointment Date:01/19/2022 09:15:00 AM Scheduled Provider:Vida Desouza Jr., MD Location:[facility] Appointment Type:URO Office Visit [facility] Evaluation + Plan note Future Appointments Appointment Date:07/07/2022 10:00:00 AM Scheduled Provider: Location:[facility] Appointment Type:Urology FT Appointment Date:07/07/2022 11:00:00 AM Scheduled Provider: Location:[facility] Appointment Type:Urology FT General Surgery [place] Evaluation + Plan note Future Appointments Appointment Date:11/02/2022 12:15:00 PM Scheduled Provider:Oh CHILDS MD Location:[facility] Appointment Type:URO Office Visit [facility] Evaluation + Plan note Future Appointments Appointment Date:01/05/2023 09:15:00 AM Scheduled Provider: Location:[facility] Appointment Type:Urology FT Appointment Date:01/11/2023 09:30:00 AM Scheduled Provider:Oh CHILDS MD Location:[facility] Appointment Type:URO Office Visit Diagnostic Tests PendingUrine Culture 12/31/22 [facility] Evaluation + Plan note Future Appointments Appointment Date:01/11/2023 09:30:00 AM Scheduled Provider:Oh CHILDS MD Location:[facility] Appointment Type:URO Office Visit [facility] Evaluation + Plan note Future Appointments Appointment Date:07/27/2023 10:15:00 AM Scheduled Provider:Antonio YUSUF MD Location:[facility] Appointment Type:URO Office Visit [facility] Evaluation + Plan note Future Appointments Appointment Date:07/27/2023 10:15:00 AM Scheduled Provider:Antonio YUSUF MD Location:[facility] Appointment Type:URO Office Visit Appointment Date:03/26/2024 01:00:00 PM Scheduled [facility] Medicare Wellness Subsequent [facility] Evaluation + Plan note Future Appointments Appointment Date:02/15/2024 01:30:00 PM Scheduled Provider:Antonio YUSUF MD Location:[facility] Appointment Type:URO Office Visit Appointment Date:03/26/2024 01:00:00 PM Scheduled Provider: [facility] Type[facility] Medicare Wellness Subsequent [facility] Hospital course Narrative No data available for this section [facility] Hospital Discharge instructions No data available for this section [facility] Progress note No data available for this section [facility] Summary Purpose Family History No Family History Records Found No data available for this section No Family History Records FoundNo Family History Records Found No data available for this section Advance Directives No Advanced Directives Records FoundNo Advanced Directives Records FoundNo Advanced Directives Records Found Additional Source Comments Care Team (unrecognized sect ion and content) Personnel Name: RAUL NGUYEN MD Address: [address] [place] [address] Personnel Name: RAUL NGUYEN MD Address: [address] [place] [address] Personnel Name: RAUL NGUYEN MD Address: [address] [place] [address] Personnel Name: RAUL NGUYEN MD Address: Address: [address] [place] [address] Personnel Name: RAUL NGUYEN MD Address: Address: [address] [place] [address] Personnel Name: RAUL NGUYEN MD Address: Address: [address] [place] [address] Personnel Name: RAUL NGUYEN MD Address: Address: [address] [place] [address] Personnel Name: RAUL NGUYEN MD Address: Address: [facility] [place] [address] Personnel Name: Colby Escobar MD Address: [facility] [place] [address]- Personnel Name: Colby Escobar MD Address: Address: [facility] [place] [address] INFORMATION SOURCE (unrecogn ized section and content) DATE CREATED AUTHOR 05/19/2022 [facility] DATE CREATED AUTHOR AUTHOR'S ORGANIZ ATION 07/22/2023 [facility] EPIC DATE CREATED AUTHOR AUTHOR'S ORGANIZ ATION 07/25/2023 [facility] FOR RECORDS PERTAINING TO PATIENTS WHO ARE OR HAVE BEEN ENROLLED IN A CHEMICAL DEPENDENCY/SUBSTANCEABUSE PROGRAM, SOME INFORMATION MAY BE OMITTED. This clinical summary was aggregated from multiple sources. Caution should be exercised in using it in the provision of clinical care. This summary normalizes information from multiple sources, and as a consequence, information in this document may materially change the coding, format and clinical context of patient data. In addition, data may be omitted in some cases. CLINICAL DECISIONS SHOULD BE BASED ON THE PRIMARY CLINICAL RECORDS. [facility]. provides no warranty or guarantee of the accuracy or completeness of information in this document.
--- NOTE | 2023-10-02 01:21 | XR_ITS ---
The [address] [address] Patient Name: TARAH BRISENO MRN: [id number] date: 1950 Sex: F Assigned Patient Location: ER Current Patient Location: Accession/Order Number: [id number] Exam Date: 10/02/2023 01:37 Report Date: 10/02/2023 01:57 At the request of: FABIAN GRACE Procedure: XR hip RT 2V w/ pelvis EXAM: XR hip RT 2V w/ pelvis HISTORY: right hip pain COMPARISON: None. TECHNIQUE: One view of the pelvis and 2 views of the right hip were obtained. FINDINGS: A surgical clip is seen within the pelvis. No acute fracture or dislocation is seen. The femoral heads are well-seated in the acetabula. There are mild to moderate degenerative changes of both sacroiliac joints and both hip joints. There are advanced degenerative changes of the pubic symphysis. XR/XR hip RT 2V w/ pelvis IMPRESSION: 1. Mild to moderate degenerative changes of both hips with no acute osseous abnormality of the pelvis or right hip seen. Electronically authenticated by: Dwight GARNER Date: 10/02/2023 01:57
--- NOTE | 2023-10-02 01:21 | ED.GENADUL1 ---
HPI - General Adult General Chief complaint: Extremity Injury, Lower Stated complaint: RT HIP PAIN Time Seen by Provider: 10/02/23 00:32 Source: patient Mode of arrival: ambulance Limitations: no limitations History of Present Illness HPI narrative: Patient woke with pain in the posterior right hip about 3 weeks ago. Pain has been slowly worsening until around 1am on 09/30/23 when it dramatically worsened. She took aleve throughout that early part of the morning with the last dose around 7am because I realized that I had taken too much . Pain radiates down the right thigh and into the right lower leg today. No fall or inury. No low back pain. No prior history of similar pain. She admits that she does a lot of lifting at home while caring for her . Related Data Home Medications Medication Instructions Recorded Confirmed atorvastatin 40 mg tablet mg 10/02/23 levothyroxine 25 mcg tablet mcg 10/02/23 Previous Rx's Medication Instructions Recorded methylprednisolone 4 mg tablets in 4 mg PO DAILY #21 ea 10/02/23 a dose pack (Medrol (Homero)) Allergies Allergy/AdvReac Type Severity Reaction Status Date / Time Iodinated Contrast Media Allergy Severe Anaphylaxis Verified 10/02/23 00:52 Exam Narrative Exam Narrative: Nurses notes and vital signs reviewed and patient is not hypoxic. afebrile General: Well-appearing and in no apparent distress. Skin: Warm, dry, no pallor noted. Cardiovascular: Normal peripheral perfusion Respiratory: No accessory muscle use or respiratory distress. Back: No midline thoracic or lumbar vertebral tenderness. Musculoskeletal: Tenderness along right lateral hip, pain with pelvic rocking on right, tenderness along the right iliotibial band. Right LE with normal ROM, no calf or popliteal tenderness, no lower extremity edema/swelling GI: Abdomen is soft, non-distended. Normal bowel sounds. No tenderness to palpation. No rebound, guarding, or rigidity noted. Neurological: A&O x4. No cranial nerve dysfunction observed. No truncal ataxia. Moves all extremities. Sensation intact. Psychiatric: Cooperative and interactive. Normal mood and affect. Constitutional Vital Signs, click to edit/add: Last Vital Signs Temp 98.3 F 10/02/23 01:55 Pulse 62 10/02/23 01:55 Resp 20 10/02/23 01:55 BP 122/78 10/02/23 01:55 Pulse Ox 97 10/02/23 01:55 O2 Del Method Room Air 10/02/23 01:55 Course Vital Signs Vital signs: Vital Signs Temperature 97.7 F 10/02/23 00:42 Pulse Rate 64 10/02/23 00:42 Respiratory Rate 19 10/02/23 00:42 Blood Pressure 128/88 10/02/23 00:42 Pulse Oximetry 97 10/02/23 00:42 Temperature 98.3 F 10/02/23 01:55 Pulse Rate 62 10/02/23 01:55 Respiratory Rate 20 10/02/23 01:55 Blood Pressure 122/78 10/02/23 01:55 Pulse Oximetry 97 10/02/23 01:55 Oxygen Delivery Method Room Air 10/02/23 01:55 Medical Decision Making MDM Narrative Medical decision making narrative: Patient ordered to receive IM Solumedrol and Toradol. Xrays of the right hip and pelvis obtained and revealed marked osteoarthritis both hips. Patient informed of results and discharged home with prescription for medrol dose pack and instructions to take tylenol for pain. PCP follow up recommended. ED return if worse. Imaging Data xr hip/pelvis: Attestation: I personally reviewed and interpreted this imaging study as follows: My impression: marked osteoarthritis both hips Radiologist's impression: ITS Impressions Hip/Pelvis X-Ray 10/02/23 01:21 IMPRESSION: 1. Mild to moderate degenerative changes of both hips with no acute osseous abnormality of the pelvis or right hip seen. Electronically authenticated by: Dwight GARNER Date: 10/02/2023 01:57 Discharge Plan Discharge Stand Alone Forms: Portal Instructions Chief Complaint: Extremity Injury, Lower Clinical Impression: Acute pain of right hip, Osteoarthritis of right hip Patient Disposition: Home, Self-Care Time of Disposition Decision: 01:46 Prescriptions / Home Meds: New methylprednisolone [Medrol (Homero)] 4 mg tablets,dose pack 4 mg PO DAILY Qty: 21 0RF Rx Instructions: follow dosing instructions on packaging No Action atorvastatin 40 mg tablet levothyroxine 25 mcg tablet Instructions: Osteoarthritis (ED), Hip Pain (ED) Referrals: SUKI BRUCE [Primary Care Provider] - 1 week Discharge Date/Time: 10/02/23 01:56
[2023-10-02] MEDS: KETOROLAC TROMETHAMINE 60 MG/2 ML VIAL IM (01:29)
[2023-10-02] MEDS: METHYLPREDNISOLONE SOD SUCC PF 125 MG/2 ML VIAL IM (01:30)
[2023-10-02 01:55] VITALS: BP 122/78; PULSE 62; RESP 20; TEMP 36.8; O2SAT 97
== END 2023-10-02 01:56 | disposition home or self-care (01) ==
PROVIDERS: Emergency Provider Emergency Medicine; PCP Family Medicine
DX: M16.11 Unilateral primary osteoarthritis, right hip (principal); M25.551 Pain in right hip; Z79.899 Other long term (current) drug therapy; Z79.890 Hormone replacement therapy
CPT/HCPCS: 73502; 96372; 99284; J2930

== ENCOUNTER 2023-10-26 08:39 | Outpatient (OUT) | payer MEDICARE, SELFPAY ==
[2023-10-26 09:50] LABS: Anion Gap 10.7; BUN Creatinine Ratio 15.7; Calcium 9.2 mg/dL (8.5-10.1); Carbon Dioxide 30.4 mmol/L (21.0-32.0); Chloride 105 mmol/L (98-107); Chol HDL Ratio 2.3; Cholesterol 146 mg/dL (<=200); Estimated GFR (African America >60 (>=60); Estimated GFR (Non-African Ame >60 (>=60); Glucose 80 mg/dL (74-106); HDL Cholesterol 64 mg/dL (40-60); Potassium 4.1 mmol/L (3.5-5.1); Sodium 142 mmol/L (136-145); TSH W/ REFLEX FT4 1.474 uIU/mL (0.358-3.740); Triglycerides 114 mg/dL (<=150); VLDL CHOLESTEROL 22.8 mg/dL
== END 2023-10-26 08:40 | disposition home or self-care (01) ==
LOC: LAB 08:40
PROVIDERS: PCP Family Medicine; Visit Provider Family Medicine
DX: E03.9 Hypothyroidism, unspecified (principal); E78.49 Other hyperlipidemia
CPT/HCPCS: 36415; 80048; 80061; 84443

== ENCOUNTER 2024-01-09 12:39 | Outpatient (OUT) | payer MEDICARE, SELFPAY ==
--- NOTE | 2024-01-09 | XR_ITS ---
The [address] [address] Patient Name: TARAH BRISENO MRN: [id number] date: 1950 Sex: F Assigned Patient Location: Current Patient Location: Accession/Order Number: [id number] Exam Date: 01/09/2024 12:47 Report Date: 01/09/2024 15:21 At the request of: FAGLUNI CARRILLO Procedure: XR hip LT 2V w/ pelvis PROCEDURE: XR hip LT 2V w/ pelvis COMPARISON: None. HISTORY: LEFT HIP PAIN FINDINGS: BONES:No acute fracture or dislocation. Degenerative osteoarthropathy with marginal osteophyte formation SOFT TISSUES:Negative. No visible soft tissue swelling. EFFUSION:None visible. OTHER: Negative. XR/XR hip LT 2V w/ pelvis IMPRESSION: Mild bilateral hip osteoarthritis Electronically authenticated by: MIRIAM HARGROVE Date: 01/09/2024 15:21
== END 2024-01-09 12:40 | disposition home or self-care (01) ==
LOC: EC 12:39
PROVIDERS: PCP Family Medicine; Visit Provider Student in an Organized Health Care Education/Training Program
DX: M25.552 Pain in left hip (principal)
CPT/HCPCS: 73502

== ENCOUNTER 2024-02-24 13:59 | Outpatient (RCR) | payer MEDICARE, SELFPAY | END 2024-03-02 15:48 | disposition home or self-care (01) | LOC: PT 13:59 | PROVIDERS: PCP Family Medicine; Visit Provider Nurse Practitioner Family | DX: R42 Dizziness and giddiness (principal) | CPT/HCPCS: 97112; 97161 ==

== ENCOUNTER 2025-03-02 10:53 | Emergency (ER) | payer MEDICARE, SELFPAY ==
--- OUTSIDE RECORDS SUMMARY | 2014-06-10 03:29 | XMS_ITS | Encounter Summary ---
Author Organization [facility] Address [address], [address] [place] [address] Care Team Providers Care Septic Cleaner Name Role Phone Yaneth Lewis MD Primary Care Provider Unavailab le Encounter Details Date Type Department Care Team (Late st Contact Info) Description 06/10/2014 2:29 AM EST Hospital Encounter MTH PRE ADMIT [address] [id number] Gil Ross MD [address] [facility] [address] [phone] Social History Tobacco Use Types Packs/Day Years [...] FINAL Procedure: TRT Jun 10 2014 10:08AM [id number] CHEST PA AND LATERAL Reason for Exam: ^preop asthma FULL RESULT: REPORT: Chest PA and lateral INDICATION: Preoperative evaluation FINDINGS: The lungs are well expanded and clear bilaterally. No focal consolidation, pleural effusion or pneumothorax seen. Normal cardiac and mediastinal silhouettes. No free intraperitoneal air. Hypertrophic degenerative changes thoracic spine. IMPRESSION: Normal chest Report Transcribed by: [facility] on Jun 10 2014 10:23A Read by: YOAV TOM M.D. [id number] on Jun 10 2014 10:23A Electronically Signed by: DR. YOAV TOM M.D. on: Jun 10 2014 10:23A Procedure Note Yoav Tom MD - 06/10/2014 FINAL Procedure: TRT Jun 10 2014 10:08AM [id number] CHEST PA AND LATERAL Reason for Exam: ^preop asthma FULL RESULT: REPORT: Chest PA and lateral INDICATION: Preoperative evaluation FINDINGS: The lungs are well expanded and clear bilaterally. No focal consolidation, pleural effusion or pneumothorax seen. Normal cardiac and mediastinal silhouettes. No free intraperitoneal air. Hypertrophic degenerative changes thoracic spine. IMPRESSION: Normal chest Report Transcribed by: [facility] on Jun 10 2014 10:23A Read by: YAOV TOM M.D. [id number] on Jun 10 2014 10:23A Electronically Signed [...] - 2 /HPF 06/10/2014 11:32 AM EST [facility] Casts UA NOT REPORTED 0 - 2 /LPF [facility] Crystals, UA NOT REPORTED NONE /HPF [facility] Epithelial Cells, UA 2 TO 5 0 - 25 /HPF 06/10/2014 11:33 AM EST [facility] Comment: Performed at [address] [place] [address] ([phone] CORRECTED ON 06/10 AT 1133: PREVIOUSLY REPORTED 0 TO 2 Renal Epithelial, UA NOT REPORTED 0 /HPF [facility] Bacteria, UA NOT REPORTED NONE [facility] Mucus, UA NOT REPORTED NONE [facility] Trichomonas NOT REPORTED NONE [facility] Amorphous, UA NOT REPORTED NONE [facility] Other Observations UA NOT REPORTED NREQ [facility] Yeast, UA NOT REPORTED NONE [facility] 06/10/2014 9:56 AM EST 06/10/2014 9:57 AM EST us Gil Ross MD URINE ORDERABLES Edited Resul t - Final [facility] [address] [place] [address] [place] [address], [facility] [phone] [facility] * TYPE AND SCREEN (06/10/2014 9:56 AM EST) Expiration Date 06/17/2014 4 11:12 AM EST [facility] Arm Band Number [id number] 11:12 AM EST [facility] ABO/Rh O POSITIVE 06/10/2014 11:12 AM EST [facility] Antibody Screen NEGATIVE 4 11:12 AM EST [facility] Comment: Performed at [address] [place] [address] ([phone] BLOOD SPECIMEN / Unknown 06/10/2014 9:56 AM EST 06/10/2014 9:57 AM EST us Gil Ross MD BLOOD BANK TEST ORDERABLES Fi nal Result [address] [address] [phone] [facility] * (ABNORMAL) UA W/REFLEX CULTURE (06/10/2014 9:56 AM EST) Color, UA YELLOW YEL 06/10/2014 11:32 AM EST [facility] Turbidity UA CLEAR CLEAR 06/10/2014 11:32 AM EST [facility] Glucose, Ur NEGATIVE NEG 06/10/2014 11:32 AM EST [facility] Bilirubin Urine NEGATIVE NEG 06/10/2014 11:32 AM EST [facility] Ketones, Urine NEGATIVE NEG 06/10/2014 11:32 AM EST [facility] Specific [place], UA 1.020 1.010 - 1.020 06/10/2014 11:32 AM EST [facility] Urine Hgb 1+(A) NEG 06/10/2014 11:32 AM EST [facility] pH, UA 6.0 5.0 - 9.0 06/10/2014 11:32 AM EST [facility] Protein, UA NEGATIVE NEG 06/10/2014 11:32 AM EST [facility] Urobilinogen, Urine Normal NORM 06/10/2014 11:32 AM EST [facility] Nitrite, Urine NEGATIVE NEG 06/10/2014 11:32 AM EST [facility] Leukocyte Esterase, Urine NEGATIVE NEG 06/10/2014 11:32 AM EST [facility] Comment: Performed at [address] [place] [address] ([phone] Urinalysis Comments NOT REPORTED [facility] Urine 06/10/2014 9:56 AM EST 06/10/2014 9:57 AM EST Gil Ross MD URINE ORDERABLES Final Result [facility] [address] [facility] [facility] [place] [address] [phone] [facility] * CBC auto differential (06/10/2014 9:56 AM EST) WBC 7.7 3.5 - 11.0 k/uL 06/10/2014 10:20 AM EST [facility] RBC 5.06 4.0 - 5.2 m/uL 06/10/2014 10:20 AM EST [facility] Hemoglobin 14.5 12.0 - 16.0 g/dL 06/10/2014 10:20 AM EST [facility] Hematocrit 44.2 36 - 46 % 06/10/2014 10:20 AM EST [facility] MCV 87.3 80 - 100 fL 06/10/2014 10:20 AM EST [facility] MCH 28.7 26 - 34 pg 06/10/2014 10:20 AM EST [facility] MCHC 32.8 31 - 37 g/dL 06/10/2014 10:20 AM EST [facility] RDW 15.1 12.1 - 15.2 % 06/10/2014 10:20 AM EST [facility] Platelets 289 140 - 450 k/uL 06/10/2014 10:20 AM EST [facility] MPV NOT REPORTED 6.0 - 12.0 fL [facility] Differential Type NOT REPORTED [facility] Seg Neutrophils 50 36 - 66 % 4 10:20 AM EST [facility] Lymphocytes 37 24 - 44 % 06/10/2014 10:20 AM EST [facility] Monocytes % 9 0 - 12 % 06/10/2014 10:20 AM EST [facility] Eosinophils % 4 0 - [...] EST PN LAB Comment: Performed at [address] [place] [address] ([phone] WBC Morphology NOT REPORTED [facility] RBC Morphology NOT REPORTED [facility] Platelet Estimate NOT REPORTED [facility] BLOOD SPECIMEN / Unknown 06/10/2014 9:56 AM EST 06/10/2014 9:57 AM EST us Gil Ross MD HEMATOLOGY ORDERABLES Final R esult [address] [address], [facility] [phone] [facility] documented in this encounter Visit Diagnoses Not on filedocumented in this encounter Care Teams Septic Cleaner Relationship Specialty Start Date End Date Yaneth Lewis MD [address] [place] [address] PCP - General 06/05/14 documented as of this encounter
[2025-03-02 10:58] VITALS: BP 147/80; PULSE 70; O2SAT 96; BMI 39.1
--- NOTE | 2025-03-02 11:11 | ED_ITS ---
HPI HPI - General Adult General Chief complaint: Wound/Laceration Stated complaint: L THUMB LACERATION Time Seen by Provider: 03/02/25 11:07 Source: patient Mode of arrival: walk-in History of Present Illness HPI narrative: 74-year-old female presenting to the emergency department for laceration at the base of her left thumb. This was sustained just before coming into the emergency department on a sharp metal tool. It has been 2 years since her last tetanus shot. No weakness or numbness and no other injury was sustained. Related Data Home Medications ?Medication ?Instructions ?Recorded ?Confirmed atorvastatin 40 mg tablet mg 10/02/23 levothyroxine 25 mcg tablet mcg 10/02/23 Allergies Allergy/AdvReac Type Severity Reaction Status Date / Time Iodinated Contrast Media Allergy Severe Anaphylaxis Verified 10/02/23 00:52 Opioid HPI Opioid Management Most Recent Opioid Data: Last Pain Scale 10 10/02/23, 01:29 Review of Systems ROS Narrative A ten point review of systems is negative except as noted above. PFSH PFSH Social History Little interest or pleasure in doing things: not at all Feeling down, depressed, or hopeless: not at all Exam Narrative Exam Narrative: Nurses note and vital signs reviewed and patient is not hypoxic. General: The patient appears well and in no apparent distress. Patient is resting comfortably on cart. Skin: Warm, dry, no pallor noted. There is no rash noted. Head: Normocephalic, atraumatic Eye: Normal conjunctiva, no drainage Ears, Nose, Mouth, and Throat: oral mucosa is moist. Nares patent. Cardiovascular: Regular Rate and Rhythm Respiratory: Patient is in no distress, no accessory muscle use, lungs are clear to auscultation, no wheezing, rales or rhonchi Back: non-tender GI: Soft and nontender Musculoskeletal: 2 cm laceration present at the base of her left thumb. MCP and IP at full range of motion. No other wounds present. Neurological: A&O, normal speech Psychiatric: Cooperative Constitutional Vital Signs, click to edit/add: Last Vital Signs Pulse 70 03/02/25 10:58 Resp 16 03/02/25 10:58 BP 147/80 H 03/02/25 10:58 Pulse Ox 96 03/02/25 10:58 Course Vital Signs Vital signs: Vital Signs Pulse Rate 70 03/02/25 10:58 Respiratory Rate 16 03/02/25 10:58 Blood Pressure 147/80 H 03/02/25 10:58 Pulse Oximetry 96 03/02/25 10:58 Pulse Rate 70 03/02/25 10:58 Respiratory Rate 16 03/02/25 10:58 Blood Pressure 147/80 H 03/02/25 10:58 Pulse Oximetry 96 03/02/25 10:58 Medical Decision Making MDM Narrative Medical decision making narrative: The following procedure was performed by me. Local infiltration was carried out with 1% lidocaine without epinephrine resulting in complete skin anesthesia. The area was prepped with Betadine x 3 and draped sterilely. It was explored for foreign bodies none were found and then closed with three 5-0 Ethilon sutures resulting in good skin reapproximation and no complications. Sutures are to be removed in 7 to 10 days. She had a tetanus shot in 2022. Treatment diagnosis and follow-up were discussed with the patient. Differential Diagnosis Differential Diagnosis: Laceration Discharge Plan Discharge Chief Complaint: Wound/Laceration Clinical Impression: Laceration of left thumb Patient Disposition: Home, Self-Care Time of Disposition Decision: 11:50 Condition: Good Mode of Transportation: Private Vehicle Prescriptions / Home Meds: No Action atorvastatin 40 mg tablet levothyroxine 25 mcg tablet Print Language: Cambodian Instructions: Finger Laceration (ED) Additional Instructions: Sutures to be removed in 7 to 10 days. Referrals: SUKI BRUCE [Physician, Family Practice] - 1 week
--- OUTSIDE RECORDS SUMMARY | 2025-03-02 11:41 | XMS_ITS | Patient Health Record ---
Author Organization [facility] Address [address] [place] [address] Care Team Providers Care Telephone Operator Receptionist Name Role Phone PCP, NO Primary Care Provider Cullen Tinajero Unavailable [phone] Self, Referral Unavailable Unavailable Reason For Referral No Information Medications Medication SIG (Take, Route, Frequency, Duration) Notes Start Date End Date Status meloxicam 15 mg 1 tab(s) orally once a day for 30 days 04/30/2024 Active Medrol Dose Pack 4 mg as directed ORAL a s DIRECTED 01/09/2024 Not-Taking Mobic 15 mg 1 tab(s) orally once a day for 30 days 10/01/2024 Active Problems Problem Type SNOMED Code ICD Code Onset Dates Problem Status W/U Status Risk Notes Problem [id number] Left hip pain (M25.552) Active confirmed Problem Unilateral primary osteoarthritis, left hip (M16.12) Active confirmed Problem 9000082 Greater trochanteric bursitis of left hip (M70.62) Active confirmed Encounters Encounter Location Date Provider Diagnosis [facility] Office [address] [facility] [place] [address] 04/30/2024 Cullen Cr Greater trochanteric [facility]itis of left hip M70.62 [facility] [address] [facility] [place] [address] 06/11/2024 Cullen Cr Unilateral primary osteoarthritis, left hip M16.12 ; Left hip pain M25.552 and Greater trochanteric bursitis of left hip M70.62 [facility] [address] [place] [address] 10/01/2024 Cullen Cr Greater trochanteric bursitis of left hip M70.62 Assessments Encounter Date Diagnosis (ICD Code) Assessment Notes Treatment Notes Treatment Clinical Notes Section Notes 04/30/2024 Greater trochanteric bursitis of left hip (ICD-10 - M70.62) Left hip greater trochanteric bursitis 06/11/2024 Left hip pain (ICD-10 - M25.552) Left GT bursitis 06/11/2024 Unilateral primary osteoarthritis, left hip (ICD-10 - M16.12) Left GT bursitis 10/01/2024 Greater trochanteric bursitis of left hip (ICD-10 - M70.62) Left trochanteric bursitis 06/11/2024 Greater trochanteric bursitis of left hip (ICD-10 - M70.62) Left GT bursitis 04/30/2024 Other I discussed with Dedra regarding her left hip pain to me. Overall doing well. I am going to start her on Mobic. Will see her back in 1 month for repeat trochanteric bursa injection. We did talk about her donkeys and peacocks. Left hip greater trochanteric bursitis 06/11/2024 Other Patient overall doing very well today in regards to her GT bursitis. Has arrived were in the 100% resolution following injection. I will see her back as needed. Left GT bursitis 10/01/2024 Other We discussed the etiology and treatment of trochanteric bursitis today in the office. Patient has done well with prior injection and anti-inflammato angel. Will refill her Mobic today. Will also perform trochanteric bursa injection. Will see her back in the office as needed. Left trochanteric bursitis Plan Of Treatment Pending Test Test Name Order Date SCC- HIP W/ PELVIS, LEFT [id number] Insurance Providers Payer Name Payer Address Payer Phone Subscriber Number Group Number Insured Name Patient Relationship to Insured Coverage Start Date Coverage End Date Medicare [employer] [address] [address] [place] [address] [id number] DEDRA GONGORA Self - patient is the insured
--- OUTSIDE RECORDS SUMMARY | 2025-03-02 11:41 | XMS_ITS | CCD ---
Author Organization [facility] Care Team Providers Care Player Manager Name Role Phone RAUL LEWIS Primary Care Physician WENDY, DR RAUL Pickard Primary Care Unavailable WENDY, DR RAUL Pickard Admitting Unavailable WENDY, DR RAUL Pickard Attending Unavailable WENDY, DR RAUL Pickard Consulting Unavailable DELVIN, DR PINEDA Consulting Unavailable WENDY, DR RAUL Pickard Referring Unavailable DEO SALGADO, DR VIDA Diaz Admitting Unavailmark YAP, DR DANIELLE Watkins Consulting Unavailable DEO SALGADO, DR VIDA Diaz Attending Unavailmark LEWIS, DR RAUL Pickard Primary Care Unavailable DEO SALGADO, DR VIDA Diaz Consulting Unavailabl e WENDY, DR RAUL Pickard Primary Care Unavailable WENDY, DR RAUL Pickard Admitting Unavailable WENDY, DR RAUL Pickard Attending Unavailable WENDY, DR RAUL Pickard Consulting Unavailable RAUL LEWIS Primary Care Physician [phone] Colby Escobar. Primary Care Physician [phone] JACQUELINE HERNANDEZ Primary Care Physician Antonio AMBRIZ Attending Unavailable Antonio AMBRIZ Attending Unavailable Colby Escobar. Attending Unavailable Colby Escobar. Attending Unavailable Colby Escobar Attending Unavailable JACQUELINE HUFF Attending Unavailable Antonio AMBRIZ Attending Unavailable Antonio AMBRIZ Attending Unavailable Antonio AMBRIZ Admitting Unavailable Antonio AMBRIZ Referring Unavailable Colby Escobar MD Primary Care Provider Jacqueline Hernandez APRN Primary Care Provider Alicia Wilks MD Attending Provider [phone] Asajacob, Imad Admitting Unavailable Lashaun Imjacob Attending Unavailable Jacqueline Hernandez Primary Care Unavailable Raul Lewis MD Primary Care Provider RAUL LEWIS EDWARD Primary Care Unavailable LUIS CARSON Attending UnavailJACLYN Acosta Referring Unavailable WENDY RAUL ALANIZ Primary Care Unavailable JACLYN STEWART Attending Unavailable Jacqueline Hernandez APRN Primary Care Provider [place] Man[place] APRN Attending Provider Jacqueline Hernandez APRN Attending Provider [phone] Jacqueline Hernandez APRN Primary Care Provider [place] APRN Attending Provider FATUMA PHIPPS Attending Unavailable FATUMA PHIPPS Attending Unavailable FATUMA PHIPPS Attending Unavailable SAMUEL SHORE Attending Unavailable YANCY CARR Attending Unavailable Allergies Allergy Classification Reported Allergen(s) Allergy Type Date of Onset Reaction(s) Facility (20 sources) Iodine; Translations: [iodine] Drug Allergy 04-06-20 04 Unknown (qualifier value), Anaphylactic shock, Anaphylaxis [facility] (20 sources) Latex; Translations: [latex] Propensity to adverse reactions to substance 12-21-19 23 Unknown (qualifier value), Hives [facility] (1 source) Iodine (And Iodine Containting Drugs) Drug allergy (disorder) [facility] Repository (2 sources) Acetaminophen; Translations: [acetaminophen] Drug Allergy Unknown (qualifier value) [facility] (1 source) Acetaminophen / Codeine; Translations: [Tylenol with Codeine] Drug Allergy [facility] Repository (1 source) Naproxen; Translations: [Naprosyn] Drug Allergy [facility] Repository (12 sources) Acetaminophen Drug Allergy 07-21-19 24 [facility] (14 sources) Other; Translations: [OTHER] Propensity to adverse reactions 04-06-20 04 [facility] (1 source) Iodine Drug Allergy 10-04-19 25 [facility] Repository Medications Current Medications Medication Drug Class(es) Dates Sig (Normalized) Sig (Original) [id number] 200 actuat albuterol 0.09 mg/actuat metered dose inhaler (20 sources) beta2-Adrenergic Agonist Start: 04-06-2023 take 2 puff(s) by mouth every four hours Proventil HFA 90 mcg/inh Aerosol 2 puff(s), Oral, q4hr Shortness of breath or wheezing, 1 kit(s), Refill(s) 0, [facility] [id number], 163, cm, 04/06/23 15:43:00 EDT, Height/Length Dosing, 107, kg, 04/06/23 15:43:00 EDT, Weight Dosing Start Date: 04/06/23 Status: Ordered Start: 04-06-2023 albuterol HFA (Proventil HFA) 90 mcg/act inhaler Take by mouth 04/06/2023 Active Start: 05-03-2022 take 2 puff(s) by in halation every four hours as needed for wheezing Proventil HFA = 2 puff(s), Inhalation, q4hr, PRN Shortness of breath or wheezing, Refills(s) 0 Start Date: 05/03/22 Status: Ordered atorvastatin 40 mg oral tablet (20 sources) HMG-CoA Reductase Inhibitor Start: 08-30-2023 End: 10-24-2024 take 1 tablet by mouth once daily atorvastatin (Lipitor) 40 MG tablet Indications: Other hyperlipidemia Take 1 tablet (40 mg) by mouth Daily 90 tablet 3 10/25/2023 Active Start: 06-01-2023 take 1 tablet by raf once daily atorvastatin 40 mg Tab See Instructions, TAKE 1 TABLET BY MOUTH DAILY, # 90 tab(s), Refills(s) 0, Pharmacy: [facility] [id number], 163, cm, 04/06/23 15:43:00 EDT, Height/Length Dosing, 107, kg, 04/06/23 15:43:00 EDT, Weight Dosing Start Date: 06/01/23 Status: Ordered Start: 02-23-2023 take 1 tablet by raf th once daily atorvastatin 40 mg Tab 40 mg = 1 tab(s), Oral, Daily, # 90 tab(s), Refills(s) 0, Pharmacy: [facility] [id number], 165, cm, 01/11/23 9:47:00 EDT, Height/Length Dosing, 115, kg, 01/11/23 9:47:00 EDT, Weight Dosing Start Date: 02/23/23 Status: Ordered Start: 05-03-2022 take [address] [facility] once daily atorvastatin 40 mg Tab 40 mg = 1 tab(s), Oral, Daily, Refills(s) 0 Start Date: 05/03/22 Status: Ordered Start: 01-06-2021 take 1 mg by mouth once daily atorvastatin 10 mg Tab mg tab(s), Oral, Daily, Refills(s) 0 Start Date: 01/06/21 Status: Ordered cephalexin 500 mg oral capsule (6 sources) Cephalosporin Antibacterial Start: 02-15-2024 End: 02-22-2024 Keflex 500 mg Cap 500 mg = 1 cap(s), Oral, BID, Start 1 day prior to the procedure, X 7 day(s), # 14 cap(s), Refills(s) 0, Pharmacy: [facility] [id number], 165, cm, 02/15/24 13:14:00 EDT, Height/Length Dosing, 106, kg, 02/15/24 13:14:00 EDT, Weight Dosing Start Date: 02/15/24 Stop Date: 02/22/24 Status: Ordered Start: 01-19-2022 take 1 capsule by [facility] once daily Keflex 500 mg Cap 500 mg = 1 cap(s), Oral, Daily, Take 1 tab day before procedure and 1 after procedure, # 2 cap(s), Refills(s) 0, Pharmacy: [facility] [id number], 165, cm, 01/19/22 9:47:00 EDT, Height/Length Dosing, 115, kg, 01/19/22 9:47:00 EDT, Weight Dosing Start Date: 01/19/22 Status: Ordered Start: 05-07-2021 take 1 capsule by [facility] twice daily Keflex 500 mg Cap 500 mg = 1 cap(s), Oral, BID, pt to start day prior to procedure., # 14 cap(s), Refills(s) 0, Pharmacy: [place] [id number], 165, cm, 05/07/21 10:07:00 EDT, Height/Length Dosing, 115, kg, 05/07/21 10:07:00 EDT, Weight Dosing Start Date: 05/07/21 Status: Ordered ciclopirox 7.7 mg/ml topical cream (9 sources) Start: 06-12-2024 ciclopirox top ical 0.77% cream 1 kylie, Topical, BID, Refill(s) 0 Start Date: 06/12/24 Status: Ordered Start: 10-26-2022 ciclopirox top ical 0.77% cream 1 kylie, Topical, BID, 30 gram, Refill(s) 3, [facility] [id number], 165.1, cm, 09/29/22 10:13:00 EDT, Height/Length Dosing, 109.8, kg, 09/29/22 10:13:00 EDT, Weight Dosing Start Date: 10/26/22 Status: Ordered ibuprofen 600 mg oral tablet (15 sources) Nonsteroidal Anti-inflammatory Drug Start: 04-14-2023 take 1 tablet by mouth every six hours as needed for pain ibuprofen 600 mg Tab 600 mg = 1 tab(s), Oral, q6hr, PRN Pain/Fever, # 30 tab(s), Refills(s) 0, Pharmacy: [facility] [id number], 163, cm, 04/06/23 15:43:00 EDT, Height/Length Dosing, 107, kg, 04/06/23 15:43:00 EDT, Weight Dosing Start Date: 04/14/23 Status: Ordered Start: 09-27-2022 ibuprofen 600 mg Tab Refills(s) 0 Start Date: 09/27/22 Status: Ordered Start: 04-06-2004 ADVIL 100MG TA BLET Indications: Pain in joint, shoulder region , Myalgia and myositis, unspecified take 4 pills 4 times daily 0 04/06/2004 Active omeprazole 40 mg delayed release oral capsule (4 sources) Proton Pump Inhibitor Start: 01-17-2025 End: 07-16-2025 take 1 capsule by mouth in the morning omeprazole (PriLOSEC) [address] capsule Take 40 mg by mouth in the morning and 40 mg in the evening. 01/17/2025 07/16/2025 Active solifenacin succinate 5 mg oral tablet (1 source) Cholinergic Muscarinic Antagonist Start: 11-12-2021 take 1 tablet by mouth once daily Vesicare 5 mg Tab 5 mg = 1 tab(s), Oral, Daily, # 30 tab(s), Refills(s) 2, Pharmacy: [facility] [id number], 165, cm, 11/12/21 11:38:00 EDT, Height/Length Dosing, 115, kg, 11/12/21 11:38:00 EDT, Weight Dosing Start Date: 11/12/21 Status: Ordered traMADol hydrochloride 50 mg oral tablet (4 sources) Opioid Agonist Start: 06-12-2024 take 1 tablet by mouth every four hours traMADOL 50 mg Tab = 1 tab(s), Oral, q4hr, Refills(s) 0 Start Date: 06/12/24 Status: Ordered Start: 10-06-2023 take 1 tablet by raf th every four hours as needed for pain traMADOL 50 mg Tab 50 mg = 1 tab(s), Oral, q4hr, PRN for pain, # 12 tab(s), Refills(s) 0, Pharmacy: [facility] [id number], 165, cm, 10/06/23 11:01:00 EDT, Height/Length Dosing, 106.8, kg, 10/06/23 11:01:00 EDT, Weight Dosing Start Date: 10/06/23 Status: Ordered zzzalbuterol CFC free 90 mcg /inh inhalation aerosol (3 sources) Start: 09-27-2022 zzzalbuterol C FC free 90 mcg/inh inhalation aerosol Refills(s) 0 Start Date: 09/27/22 Status: Ordered Completed/Discontinued Medications Medication Drug Class(es) Dates Sig (Normalized) Sig (Original) famotidine 20 mg oral tablet (20 sources) Histamine-2 Receptor Antagonist Start: 08-09-2024 End: 09-06-2024 take 1 tablet by mouth twice daily Famotidine 20 mg tablet Discontinued 0 .ROUTE .COMPLEX 60 August 09, 2024 8:50am September 06, 2024 11:41am TAKE 1 TABLET BY MOUTH 2 TIMES A DAY Start: 08-07-2024 End: 08-09-2024 take 1 tablet by mouth once daily Famotidine (Pepcid) 20 mg tablet Discontinued 20 MG PO Daily August 07, 2024 12:51pm August 09, 2024 8:50am Start: 06-12-2024 End: 08-07-2024 take 1 tablet by mouth twice daily Famotidine (Pepcid) 20 mg tablet Discontinued 20 MG PO Twice daily 60 June 12, 2024 4:29pm August 07, 2024 12:51pm fluticasone propionate 0.05 mg/actuat metered dose nasal spray (12 sources) Corticosteroid Start: 03-15-2024 End: 09-06-2024 take 1 spray(s) nasal route twice daily Fluticasone Propionate 50 mcg/actuation spray,suspension Discontinued 0 .ROUTE .COMPLEX March 15, 2024 7:56am September 06, 2024 11:41am USE 1 SPRAY IN EACH NOSTRIL TWICE A DAY Start: 02-17-2024 End: 03-15-2024 take 1 spray(s) nasal route twice daily Fluticasone Propionate (Flonase Allergy Relief) 50 mcg/actuation spray,suspension Discontinued 1 SPRAY INTRANASAL Twice daily February 17, 2024 12:00am March 15, 2024 7:57am administer into each nostril levothyroxine sodium 0.1 mg oral tablet (20 sources) l-Thyroxine Start: 01-10-2024 End: 01-10-2024 take 1 tablet by mouth once daily Levothyroxine 100 mcg tablet Discontinued 100 MCG PO Daily January 10, 2024 12:00am January 10, 2024 2:09pm Start: 11-04-2023 take 1 tablet by raf th once daily levothyroxine 25 mcg (0.025 mg) Tab See Instructions, TAKE 1 TABLET BY MOUTH DAILY, # 90 tab(s), Refills(s) 0, Pharmacy: [facility] [id number], 165, cm, 10/06/23 11:01:00 EDT, Height/Length Dosing, 106.8, kg, 10/06/23 11:01:00 EDT, Weight Dosing Start Date: 11/04/23 Status: Ordered Start: 11-01-2023 End: 01-22-2025 take 1 tablet by mouth before mealtime levothyroxine (Synthroid) 25 MCG tablet Indications: Hypothyroidism, unspecified type Take 1 tablet (25 mcg) by mouth in the morning. Take before meals. 90 tablet 3 11/01/2023 Active Start: 05-10-2023 take 1 tablet by raf th once daily levothyroxine 25 mcg (0.025 mg) Tab 25 mcg = 1 tab(s), Oral, Daily, # 90 tab(s), Refills(s) 1, Pharmacy: [facility] [id number], 163, cm, 04/06/23 15:43:00 EDT, Height/Length Dosing, 107, kg, 04/06/23 15:43:00 EDT, Weight Dosing Start Date: 05/10/23 Status: Ordered Start: 10-29-2022 take 1 tablet by raf once daily levothyroxine 25 mcg (0.025 mg) Tab 25 mcg = 1 tab(s), Oral, Daily, # 90 tab(s), Refills(s) 1, Pharmacy: [facility] [id number], 165.1, cm, 09/29/22 10:13:00 EDT, Height/Length Dosing, 109.8, kg, 09/29/22 10:13:00 EDT, Weight Dosing Start Date: 10/29/22 Status: Ordered Start: 05-03-2022 take 1 tablet by raf th once daily levothyroxine 25 mcg (0.025 mg) Tab 25 mcg = 1 tab(s), Oral, Daily, Refills(s) 0 Start Date: 05/03/22 Status: Ordered Start: 08-26-2020 take 1 tablet by raf once daily levothyroxine 50 mcg (0.05 mg) Tab mcg tab(s), Oral, Daily, Refills(s) 0 Start Date: 08/26/20 Status: Ordered Start: 08-26-2020 take 1 tablet by raf th once daily levothyroxine 50 mcg (0.05 mg) Tab mcg tab(s), Oral, Daily, Refills(s) 0 Start Date: 08/26/20 Status: Ordered meclizine hydrochloride 25 mg oral tablet (14 sources) Antiemetic Start: 02-17-2024 End: 09-06-2024 take 1 tablet by mouth three times daily as needed for dizziness Meclizine 25 mg tablet Discontinued 25 MG PO Three times daily as needed for dizziness 30 10 February 17, 2024 12:01pm September 06, 2024 11:41am pantoprazole 40 mg delayed release oral tablet (13 sources) Proton Pump Inhibitor Start: 10-03-2024 End: 04-14-2025 take 1 tablet by mouth twice daily Pantoprazole 40 mg tablet,delayed release (DR/EC) Discontinued 40 MG PO Twice daily 120 October 03, 2024 12:00am January 28, 2025 11:10am triamcinolone acetonide 1 mg/ml topical cream (7 sources) Corticosteroid Start: 02-07-2024 End: 09-06-2024 Triamcinolone Acetonide 0.1 % cream Discontinued 1 APPLIC TOPICAL Twice daily 30 10 February 07, 2024 12:00am September 06, 2024 11:41am Problems Active Problems Problem Classification Problem Date Documented Da te Episodic/Chronic Abdominal hernia (11 sources) Hiatal hernia 05-03-2022 Episodic Allergic reactions (7 sources) Contact dermatitis; Translations: [Unspecified contact dermatitis, unspecified cause] 02-07-2024 Episodic Asthma (20 sources) Asthma; Translations: [Unspecified asthma, uncomplicated] Onset: 4 12-24-2018 Chronic Conditions associated with dizziness or vertigo (7 sources) Vertigo; Translations: [Dizziness and giddiness] 02-17-2024 Episodic Disorders of lipid metabolism (20 sources) Pure hypercholesterolemia; Translations: [Pure hypercholesterolemia, unspecified] Onset: 2 05-03-2022 Chronic Esophageal disorders (20 sources) Gastroesophageal reflux disease; Translations: [Lower esophageal ring] Onset: 5 05-03-2022 Chronic Esophageal disorders (7 sources) Lesion of esophagus; Translations: [Disease of esophagus, unspecified] Onset: 5 10-18-2024 Episodic Genitourinary symptoms and ill-defined conditions (20 sources) Stress incontinence (female) (male); Translations: [Urge incontinence] Onset: 1 Chronic Genitourinary symptoms and ill-defined conditions (20 sources) Urgent desire to urinate; Translations: [Urgency of urination] Onset: 1 Episodic Mycoses (9 sources) Candidal paronychia 09-29-2022 Episodic Nonspecific chest pain (10 sources) Atypical chest pain; Translations: [Other chest pain] 08-08-2024 Episodic Other and unspecified benign neoplasm (11 sources) History of polyp of colon 05-03-2022 Episodic Other and unspecified benign neoplasm (3 sources) Papilloma; Translations: [Benign neoplasm, unspecified site] 10-31-2024 Episodic Other and unspecified benign neoplasm (2 sources) Melanocytic nevus of trunk; Translations: [Melanocytic nevi of trunk] 02-11-2025 Episodic Other connective tissue disease (11 sources) Fibromyalgia 05-03-2022 Episodic Other connective tissue disease (11 sources) History of polymyalgia rheumatica 05-03-2022 Episodic Other connective tissue disease (4 sources) Trochanteric bursitis 10-06-2023 Episodic Other diseases of bladder and urethra (13 sources) Urethral stricture; Translations: [Other urethral stricture, female] Onset: 3 12-07-2022 Episodic Other diseases of kidney and ureters (15 sources) Cyst of kidney 10-07-2020 Episodic Other gastrointestinal disorders (8 sources) Dysphagia; Translations: [Dysphagia, unspecified] 08-07-2024 Episodic Other gastrointestinal disorders (9 sources) Dysphagia, unspecified; Translations: [Dysphagia, unspecified] Onset: 5 08-07-2024 Episodic Other nutritional; endocrine; and metabolic disorders (5 sources) Body mass index 40+ - severely obese 05-12-2022 Chronic Other nutritional; endocrine; and metabolic disorders (12 sources) Obesity; Translations: [Class 2 obesity without serious comorbidity in adult] Onset: 4 10-25-2023 Chronic Other nutritional; endocrine; and metabolic disorders (2 sources) Body mass index 30+ - obesity; Translations: [Body mass index (BMI) 39.0-39.9, adult] 01-16-2025 Chronic Other screening for suspected conditions (not mental disorders or infectious disease) (19 sources) Screening for malignant neoplasm of colon done; Translations: [Encounter for screening for malignant neoplasm of colon] Onset: 2 Episodic Other skin disorders (8 sources) Inflamed seborrheic keratosis; Translations: [Inflamed seborrheic keratosis] 2024 Episodic Other skin disorders (2 sources) Seborrheic keratosis; Translations: [Other seborrheic keratosis] 02-11-2025 Episodic Otitis media and related conditions (6 sources) Dysfunction of eustachian tube; Translations: [Unspecified Eustachian tube disorder, unspecified ear] 02-17-2024 Episodic Residual codes; unclassified (1 source) Family history of malignant neoplasm of breast; Translations: [FAMILY HX MALIG NEOPLASM OF BREAST] Onset: 2 Episodic Residual codes; unclassified (1 source) Family history of malignant neoplasm of other genital organs; Translations: [FAM HX MALIG NEOPLSM OTH GENIT ORGN] Onset: 2 Episodic Residual codes; unclassified (2 sources) Postmenopausal state; Translations: [Asymptomatic menopausal state] 01-16-2025 Episodic Thyroid disorders (20 sources) Hyperthyroidism; Translations: [Hypothyroidism] Onset: 2 12-24-2018 Chronic Thyroid disorders (7 sources) Disorder of thyroid gland; Translations: [Disorder of thyroid, unspecified] 01-10-2024 Episodic Unclassified (15 sources) Asymptomatic microscopic hematuria 10-07-2020 Unclassified (17 sources) Patient encounter status 05-12-2022 Unclassified (1 source) New Patient Onset: 5 Past or Other Problems Problem Classification Problem Date Documented Da te Episodic/Chronic Other connective tissue disease (6 sources) Muscle pain; Translations: [Myalgia and myositis, unspecified] Onset: 04-06-2004 01-26-2024 Episodic Results Test Name Value Interpretation Reference Range Facility No Panel Informationon 02-11 [facility] ANES POSTPROC EVALon 025 ANES POSTPROC EVAL HNO ID: [id number] Author: LUIS CARSON MD Service: ? Author Type: Anesthesiologist Type: Anesthesia Postprocedure Evaluation Filed: 01/10/2025 14:35 Note Text: POST ANESTHESIA EVALUATION NOTE : 1950 Procedure Summary Date: 01/10/25 Room / Location: Gastroenterology Anesthesia Start: 1301 Anesthesia Stop: 1338 Procedure: EGD - THERAPEUTIC, EUS, OR TUBE INTERVENTIONS Diagnosis: Eosinophilic esophagitis Esophageal lesion (Dysphagia) Scheduled Providers: Vicky Downing MD; Ranjana Arceo APRN.CLINICAL DOCUMENTATION CLERK; Luis Carson MD Responsible Provider: Luis Carson MD Anesthesia Type: general ASA Status: 2 Anesthesia Type: general Airway Type: supplemental O2 Last Vitals Vitals Value Taken Time BP 150/66 01/10/25 1351 Temp 36 01/10/25 1435 Pulse 53 01/10/25 1356 Resp 16 01/10/25 1435 SpO2 98 % 01/10/25 1356 Post Anesthesia Patient Status Patient Evaluation: PACU. PACU/ICU Patient Condition: stable. Anticipated Disposition: phase 2 then home. Neurological Status: aware and responsive. Pulmonary Status: breathing comfortably on room air Airway Control: returned to baseline unsupported. Cardiovascular Status: stable. Pain Management: clinically adequate Postoperative Hydration: acceptable. Intraoperative Events: no significant anesthesia events Post Operative Nausea/Vomiting Status: no significant post operative nausea or vomiting Recommendation: continue current plan of care. Anesthesia Observations No notable events were associated with this procedure. Documented by Ranjana Arceo APRN.CRNA 01/10/2025 1:41 PM EDT SIGNATURE: Luis Blandon MD PATIENT NAME: Tarah Briseno DATE: January 10, 2025 TIME: 2:35 PM CSN: [id number] Normal [facility] ANES PRE-OPon 01-10-2025 ANES PRE-OP HNO ID: [id number] Author: LUIS CARSON MD Service: ? Author Type: Anesthesiologist Type: Anesthesia Preprocedure Evaluation Filed: 01/10/2025 12:13 Note Text: ANESTHESIOLOGY DAY OF SURGERY NOTE : 1950 Procedure Information Date/Time: 01/10/25 1300 Scheduled providers: Vicky Downing MD; Ranjana Arceo APRN.CLINICAL DOCUMENTATION CLERK; Luis Carson MD Procedure: EGD - THERAPEUTIC, EUS, OR TUBE INTERVENTIONS Location: Gastroenterology Estimated body mass index is 39.01 kg/m? (pended) as calculated from the following: Height as of 10/16/24: (P) 165.1 cm (5' 5 ). Weight as of 10/16/24: (P) 106.3 kg (234 lb 6.4 oz). Most recent hematocrit and potassium results: Hematocrit 43.5 04/06/2004 Potassium 4.0 04/06/2004 Relevant Problems No relevant active problems I - PHYSICAL EVALUATION AIRWAY Patient intubated: No. Tracheostomy tube not present Mallampati: II. TM distance: >3 FB. Neck ROM: full ROM without neurological symptoms. Mouth opening: adequate. Short neck: no. Thick neck: no DENTAL Dental findings: teeth intact. Additional exam findings: no II - ANESTHESIA PLAN ASA Score: 2 Anesthetic Plan: general Airway type: supplemental O2 The patient is not a current smoker. NPO Status: adequate Anesthetic plan additional comments: Hypothyroidism Fibromyalgia Esophagitis. Beta Rudy Monitoring Plan Monitoring plan: standard ASA. Post Procedure Analgesic Plan Postoperative analgesic plan: multimodal analgesia. Informed Consent Anesthetic risks, benefits, alternatives, personnel and consent discussed: yes. Patient / Responsible Alliance Party agrees to proceed: yes Patient / Surrogate agrees to blood products: blood products not planned Potential Anesthesia issues that may suggest increased risk of complications or contraindication to planned procedure: none. No vitals data found for the desired time range. Outpatient Medications as of 01/10/2025 Medication Sig levothyroxine (SYNTHROID) 25 mcg tablet Take 25 mcg by mouth. atorvastatin (LIPITOR) 40 mg tablet Take 40 mg by mouth. pantoprazole DR (PROTONIX) 40 mg tablet Take 1 tablet by mouth two times a day. ADVIL 100MG TABLET take 4 pills 4 times daily (Patient not taking: Reported on 10/16/2024) No current facility-administered medications on file as of 01/10/2025. I have interviewed and examined the patient. I have reviewed the medical record and/or the pre-anesthesia evaluation, pertinent labs, and test results. This contains updated information obtained within 48 hours of Surgery/Procedure. SIGNATURE: Luis Blandon MD PATIENT NAME: Tarah Briseno DATE: January 10, 2025 TIME: 12:12 PM CSN: [id number] Normal [facility] EGD Study observation Quinton ram 01-10-2025 A31 Gastrointestinal Endoscopy Patient Name: Tarah Briseno Procedure Date: 01/10/2025 12:57 PM Date of : 1950 Admit Type: Outpatient Age: 74 Room: [address] Gender: Female Note Status: Finalized Attending MD: Vicky Downing MD, [id number] Procedure: Upper GI endoscopy Indications: Dysphagia Providers: Vicky Downing MD Patient Profile: This is a 74 year old female. Refer to note in patient chart for documentation of history and physical. Referring Physician: Jaclyn Stewart (Referring MD) Medicines: Monitored Anesthesia Care Complications: No immediate complications. Requesting Provider: Procedure: Pre-Anesthesia Assessment: - Prior to the procedure, a History and Physical was performed, and patient medications and allergies were reviewed. The patient's tolerance of previous anesthesia was also reviewed. The risks and benefits of the procedure and the sedation options and risks were discussed with the patient. All questions were answered, and informed consent was obtained. Prior Anticoagulants: The patient has taken no anticoagulant or antiplatelet agents. ASA Grade Assessment: II - A patient with mild systemic disease. After reviewing the risks and benefits, the patient was deemed in satisfactory condition to undergo the procedure. After obtaining informed consent, the endoscope was passed under direct vision. Throughout the procedure, the patient's blood pressure, pulse, and oxygen saturations were monitored continuously. The GIF-[id number] was introduced through the mouth, and advanced to the second part of duodenum. The upper GI endoscopy was accomplished without difficulty. The patient tolerated the procedure well. Moderate Sedation: MAC anesthesia was administered by the anesthesia team. Findings: Esophagogastric landmarks were identified: the Z-line was found at 32 cm, the upper extent of the gastric folds was found at 32 cm and the site of hiatal narrowing was found at 35 cm from the incisors. Mucosal changes were found in the entire esophagus. Esophageal findings were graded using the Eosinophilic Esophagitis Endoscopic Reference Score (EoE-EREFS) as: Edema Grade 1 Present (decreased clarity or absence of vascular markings), Rings Grade 2 Moderate (distinct rings that do not occlude passage of diagnostic 8-10 mm endoscope), Exudates Grade 0 None (no white lesions seen), Furrows Grade 2 Severe (vertical lines with clear depth) and Stricture present (14 mm luminal diameter). A guidewire was placed and the scope was withdrawn. Dilation was performed with a Savary dilator with no resistance at 16 mm. The dilation site was examined following endoscope reinsertion and showed mild mucosal disruption. Biopsies were obtained from the proximal and distal esophagus with cold forceps for histology of suspected eosinophilic esophagitis. A small hiatal hernia was present. A single 4 mm mucosal nodule was found in the lower third of the esophagus, 31 cm from the incisors. The polyp was removed with a cold snare. Resection and retrieval were complete. The entire examined stomach was normal. The examined duodenum was normal. Impression: - Esophagogastric landmarks identified. - Esophageal mucosal changes consistent with eosinophilic esophagitis. Dilated with Savary 16 mm with mild mucosal disruption at the level of the Schatzki's ring. - Small hiatal hernia. - Mucosal nodule found in the esophagus consistent with previously biopsied squamous papilloma, resected with cold snare. - Normal stomach. - Normal examined duodenum. - Biopsies were taken with a cold forceps for evaluation of eosinophilic esophagitis. Estimated Blood Loss: Estimated blood loss was minimal. Recommendation: - Patient has a contact number available for emergencies. The signs and symptoms of potential delayed complications were discussed with the patient. Return t (more content not included)... PROVATION [facility] Radiology Study observation (narrative) [facility] NURSING PROGon 01-10-2025 NURSING PROG HNO ID: [id number] Author: ARBEN DESOUZA RN Service: Nursing Author Type: Registered Nurse Type: Nursing Progress Note Filed: 01/10/2025 14:04 Note Text: AMBULATORY PATIENT EDUCATION NOTE TOPIC: GI PROCEDURES: Esophagogastroduodenoscopy( EGD) with or without biopies based on clinical findings, removal of polyps or lesions READINESS TO LEARN INSTRUCTION PROVIDED TO: Patient, readness to learn accessed prior to procedure and Son COGNITIVE ABILITY: Alert and oriented PTED MOTIVATION TO LEARN: Eager Interested FAMILY SUPPORT: High - Very involved in pt care IPATIENT LEARNS BEST BY: Individual Instruction Written Instruction - Hand-outs Verbal Instruction FACTORS AFFECTING LEARNING: None PHYSICAL LIMITATIONS AFFECTING LEARNING: None LEARNING RESPONSE METHOD OF INSTRUCTION: Individual instruction PATIENT / FAMILY RESPONSE: Verbalizes understanding of: WORSENING CONDITION-Signs and symptoms of a worsening condition that warrant a call to the physician FOLLOW-UP PLAN: Complete - No need for follow-up Patient instructed to call with any further issues SUPPLEMENTAL MATERIAL: Procedure Discharge Instructions REFERRAL (RECOMMENDATION): None Electronically Signed By: Arben Desouza RN Normal [facility] NURSING PROG HNO ID: [id number] Author: GENEVIEVE JARA RN Service: ? Author Type: Registered Nurse Type: Nursing Progress Note Filed: 01/10/2025 12:09 Note Text: PRE OP LEARNING ASSESSMENT PROCEDURE/SURGERY: GI PROCEDURES: EGD READINESS TO LEARN COGNITIVE ABILITY: Alert and oriented MOTIVATION TO LEARN: Eager FAMILY SUPPORT: Unable to assess - Family not present PATIENT LEARNS BEST BY: Individual Instruction FACTORS AFFECTING LEARNING: None PHYSICAL LIMITATIONS AFFECTING LEARNING: None Electronically Signed By: GENEVIEVE JARA RN In Department: GASTROENTEROLOGY Normal [facility] Pathology biopsy report Ed (Tiss)on 01-10-2025 AP DISCLAIMER Normal [facility] Comment on above: Order Comment: Rozina kauffman Type: TISSUE SPECIMEN Ordering Facility: [facility] Address: [address] [place] [address] Result Comment: Moriah kirk Developed Test (LDT) Disclaimer: Performance characteristics of immunohistochemical, immunofluorescent, and chromogenic in-situ hybridization tests have been determined by the performing laboratory within [facility]'s [facility] Pathology and Laboratory Medicine Department ([facility], [facility], [facility], [facility], [facility], [facility], or [facility]) in a manner consistent with CLIA requirements. One or more of these tests may not have been cleared or approved by the FDA. [facility] is regulated under CLIA as qualified to perform high-complexity testing. These tests are used for clinical purposes. These should not be regarded as investigational or for research. Positive and negative controls stain appropriately. Performed By: #### 6 6121-5 #### [facility] CLIA [id number] [address] [place] [address] OF [facility] CLIA [id number] [address] [place] [address] OF [place] CASE REPORT Normal [facility] Comment on above: Order Comment: Rozina kauffman Type: TISSUE SPECIMEN Ordering Facility: [facility] Address: [address] [place] [address] Result Comment: Surg ica Pathology Report Case: [id number] Authorizing Provider: Vicky Downing MD Collected: 01/10/2025 01:24 PM Ordering Location: Gastroenterology Received: 01/10/2025 04:46 PM Pathologist: Leonid Garcia MD Specimens: A) - Esophagus, Biopsy, r/o polynoma B) - Esophagus, Biopsy, r/o EOE C) - Esophagus, Biopsy, r/o EOE Performed By: #### 6 6121-5 #### [facility] CLIA [id number] [address] [place] [address] [place] [facility] CLIA [id number] [address] [place] [address] [place] FINAL DIAGNOSIS Normal [facility] Comment on above: Order Comment: Speci men Type: TISSUE SPECIMEN Ordering Facility: [facility] Address: [address] [place] [address] Result Comment: A. E sophagus, polyp, biopsy: - Inflamed squamous mucosa with associated reactive epithelial changes, negative for intestinal metaplasia and dysplasia. B. Esophagus, lower, biopsy: - Squamous mucosa with eosinophilic esophagitis pattern of injury (foci of greater than twenty intraepithelial eosinophils per high-power field). C. Esophagus, mid and proximal, biopsy: - Squamous mucosa with reactive epithelial changes and patchy increase in intraepithelial eosinophils (focally up to fourteen intraepithelial eosinophils per high-power field). at 1159 EDT Performed By: #### 6 6121-5 #### [facility] CLIA [id number] [address] [place] [address] [place] [facility] CLIA [id number] [address] [place] [address] STATES OF [place] [facility]FORM[facility] LAB Normal [facility] Comment on above: Order Comment: Speci men Type: TISSUE SPECIMEN Ordering Facility: [facility] Address: [address] [place] [address] Result Comment: Diag nostic interpretation performed at: [facility], [address] [place] [address] CLIA# [id number] Reporting Developer: Rogelio Levine MD Performed By: #### 6 6121-5 #### [facility] CLIA [id number] [address] [place] [address] [place] [facility] CLIA [id number] [address] [place] [address] [place] GROSS DESCRIPTION Normal [facility] Comment on above: Order Comment: Speci men Type: TISSUE SPECIMEN Ordering Facility: [facility] Address: [address] [place] [address] Result Comment: A. E sophagus, Biopsy Received in formalin are multiple pieces of alcaraz, soft tissue aggregating to 0.8 x 0.4 x 0.1 cm. Totally submitted in two cassette. B. Esophagus, Biopsy Received in formalin are multiple pieces of alcaraz, soft tissue aggregating to 1.2 x 0.2 x 0.1 cm. Totally submitted in one cassette. C. Esophagus, Biopsy Received in formalin are multiple pieces of alcaraz, soft tissue aggregating to 0.7 x 0.2 x 0.1 cm. Totally submitted in one cassette. SS January 10, 2025 8:35 PM Gross examination performed at [facility], [address] [place] [address] Performed By: #### 6 6121-5 #### [facility] CLIA [id number] [address] [place] [address] LAB CLIA [id number] [address] [place] [address] Upper GI endoscopyon 06-26-2 025 Upper GI endoscopy A31 Gastrointestinal Endoscopy Patient Name: Tarah Briseno Procedure Date: 01/10/2025 12:57 PM Date of : 1950 Admit Type: Outpatient Age: 74 Room: [place] [address] Gender: Female Note Status: Finalized Attending MD: Vicky Downing MD, [id number] Procedure: Upper GI endoscopy Indications: Dysphagia Providers: Vicky Downing MD Patient Profile: This is a 74 year old female. Refer to note in patient chart for documentation of history and physical. Referring Physician: Jaclyn Stewart (Referring MD) Medicines: Monitored Anesthesia Care Complications: No immediate complications. Requesting Provider: Procedure: Pre-Anesthesia Assessment: - Prior to the procedure, a History and Physical was performed, and patient medications and allergies were reviewed. The patient's tolerance of previous anesthesia was also reviewed. The risks and benefits of the procedure and the sedation options and risks were discussed with the patient. All questions were answered, and informed consent was obtained. Prior Anticoagulants: The patient has taken no anticoagulant or antiplatelet agents. ASA Grade Assessment: II - A patient with mild systemic disease. After reviewing the risks and benefits, the patient was deemed in satisfactory condition to undergo the procedure. After obtaining informed consent, the endoscope was passed under direct vision. Throughout the procedure, the patient's blood pressure, pulse, and oxygen saturations were monitored continuously. The GIF-HQ190 was introduced through the mouth, and advanced to the second part of duodenum. The upper GI endoscopy was accomplished without difficulty. The patient tolerated the procedure well. Moderate Sedation: MAC anesthesia was administered by the anesthesia team. Findings: Esophagogastric landmarks were identified: the Z-line was found at 32 cm, the upper extent of the gastric folds was found at 32 cm and the site of hiatal narrowing was found at 35 cm from the incisors. Mucosal changes were found in the entire esophagus. Esophageal findings were graded using the Eosinophilic Esophagitis Endoscopic Reference Score (EoE-EREFS) as: Edema Grade 1 Present (decreased clarity or absence of vascular markings), Rings Grade 2 Moderate (distinct rings that do not occlude passage of diagnostic 8-10 mm endoscope), Exudates Grade 0 None (no white lesions seen), Furrows Grade 2 Severe (vertical lines with clear depth) and Stricture present (14 mm luminal diameter). A guidewire was placed and the scope was withdrawn. Dilation was performed with a Savary dilator with no resistance at 16 mm. The dilation site was examined following endoscope reinsertion and showed mild mucosal disruption. Biopsies were obtained from the proximal and distal esophagus with cold forceps for histology of suspected eosinophilic esophagitis. A small hiatal hernia was present. A single 4 mm mucosal nodule was found in the lower third of the esophagus, 31 cm from the incisors. The polyp was removed with a cold snare. Resection and retrieval were complete. The entire examined stomach was normal. The examined duodenum was normal. Impression: - Esophagogastric landmarks identified. - Esophageal mucosal changes consistent with eosinophilic esophagitis. Dilated with Savary 16 mm with mild mucosal disruption at the level of the Schatzki's ring. - Small hiatal hernia. - Mucosal nodule found in the esophagus consistent with previously biopsied squamous papilloma, resected with cold snare. - Normal stomach. - Normal examined duodenum. - Biopsies were taken with a cold forceps for evaluation of eosinophilic esophagitis. Estimated Blood Loss: Estimated blood loss was minimal. Recommendation: - Patient has a contact number available for emergencies. The signs and symptoms of potential delayed complications were discussed with the patient. Return to normal activities tomorrow. Written discharge instructions were provided to the patient. - Mechanical soft diet daily. - Continue present medications. - Await pathology results. - Return to referring provider. Procedure Code(s): --- Professional --- 47578, 22, Esophagogastroduodenoscopy, flexible, transoral; with removal of tumor(s), polyp(s), or other lesion(s) by snare technique 52150, Esophagogastroduodenoscopy, flexible, transoral; with insertion of guide wire followed by passage of dilator(s) through esophagus over guide wire 47667, 59,51, Esophagogastroduodenoscopy, flexible, transoral; with biopsy, single or multiple Diagnosis Code(s): --- Professional --- K22.89, Other specified disease of esophagus K44.9, Diaphragmatic hernia without obstruction or gangrene R13.10, Dysphagia, unspecified CPT copyright 2020 [employer] [place] [employer]. All rights reserved. The codes documented in this report are preliminary and upon dairy products maker review may be revised to baljinder (more content not included)... Normal [facility] NURSING PROGon 01-03-2025 NURSING PROG HNO ID: [id number] Author: AWA LEMON RN Service: ? 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 and They verbalized their understanding and agree to have a responsible adult accompany the patient to their procedure and remain in the endoscopy area. Any barriers to Patient learning: Patient/Patient Weight Caller responded appropriately on phone. Type of instruction given: Verbal by telephone contact. KATIA Al [facility] No Panel Informationon 10-18 [facility] 10-03-2024 L ------- Specimen: [id number] Received: 10/03/24 Status: [place] Love Num: [id number] Spec Type: Surgical Subm Dr: Alicia Wilks MD Tissues: A Esophagus Biopsy (ESOPH LESION) B Esophagus Biopsy (ESOPH BX) Procedures: [place] PETERSON/José L4/2 Age/ Patient Sex Location Account Attending Physician Tarah Briseno 74/F [id number] Alicia Wilks MD SPEC NUM: [id number] RECD: 10/03/24 STATUS: [place] LOVE NUM: [id number] CRYSTAL: 10/03/[address] [facility] [address]: Alicia Wilks MD ENTERED: 10/03/[address] [facility] [address]: SPEC TYPE: Surgical DEPT: S ENTERED BY: [id number] RECV BY: [id number] ORDERED: HE/4, Gross/Micro L4/2 ORDERED: HE/4, Gross/Micro L4/2 Pathological Diagnosis A. Esophagus, lesion (mucosal biopsies): Fragments of squamous papilloma, inflamed No malignancy seen B. Esophagus (mucosal biopsies): Active esophagitis with prominent eosinophils No glandular epithelium or dysplasia seen See comment Comment: Eosinophils number 15-20/hpf and surface microabscesses are present. There is marked basal hyperplasia and spongiosis is noted. In the appropriate clinical setting the features are consistent with eosinophilic esophagitis. Clinical Information GERD, dysphagia. Part B rule out eosinophilic esophagitis Gross Description Part A is received in formalin labeled with the patients name, date of , and esophageal lesion are pale rodas, focally erythematous, feathery, 0.5 x 0.3 x 0.1 cm in greatest dimension tissue bits. The specimen is filtered and entirely submitted in a single cassette. (1, ns, [id number] A) LEONELA Specimen: [id number] Received: 10/03/24 Status: THE[place]A Love Num: [id number] Spec Type: Surgical Subm Dr: Alicia Wilks MD Tissues: A Esophagus Biopsy (ESOPH LESION) B Esophagus Biopsy (ESOPH BX) Procedures: HE/4, Gross/Micro L4/2 Patient: Tarah Briseno [id number] (Continued) Specimen: [id number] Received: 10/03/24 (Continued) Gross Description (Continued) Signed (signature on file) Phillip Sorensen Jr., MD 10/04/24 1142 Specimen: [id number] Received: 10/03/24 Status: THEODORA Love Num: [id number] Spec Type: Surgical Subm Dr: Alicia Wilks MD Tissues: A Esophagus Biopsy (ESOPH LESION) B Esophagus Biopsy (ESOPH BX) Procedures: ALKA/Pippa, Gross/Micro L4/2 Patient: Tarah Briseno [id number] (Continued) Specimen: [id number] Received: 10/03/24 (Continued) Gross Description (Continued) Part B is received in formalin labeled with the patients name, date of , and esophagea l BX are 3 pale rodas, focally erythematous, feathery, 0.2, 0.2 and 0.3 cm in greatest dimension tissue bits. The specimen is entirely submitted in a single cassette. (1, ns, [id number] B) JG Specimen: [id number] Received: 10/03/24 Status: THEODORA Love Num: [id number] Spec Type: Surgical Subm Dr: Alicia Wilks MD Tissues: A Esophagus Biopsy (ESOPH LESION) B Esophagus Biopsy (ESOPH BX) Procedures: HE/4, Gross/Micro L4/2 Patient: Tarah Briseno [id number] (Continued) Signed (signature on file) Phillip Sorensen Jr., MD 10/04/[address] [facility] No Panel Informationon 09-12 [facility] No Panel Informationon 08-13 [facility] Urology Office/Clinic Noteon 06-12-2024 Urology Office/Clinic Note Urology Office/Clinic Note Chief Complaint 2 mth f/u HPI Staff 73yr old female pt here for 2mo Botox injection F/u. Botox 200 units done 04/09/24. Pt had Botox in the past, 100 units on 10/23/20, 200 units on 05/28/21, & 200 units on 01/05/23. S/p cysto UD 07/07/22. Previous Dx: mixed incontinence, other urethral stricture, asymptomatic microscopic hematuria pt states she is having NO urinary issues PVR - 77 Dysuria: _no Incomplete bladder emptying: _no Hematuria: _no Frequency: _a4+ hrs Urgency: _no Nocturia: _no Stream: _ormal Leaking: _no Post void dripping: _no Wearing pads/ Depends: _no Urge incontinence: _no Stress incontinence: _no Incontinence without Sensory Awareness: _no Abdominal pain: _no Flank pain: _no Sexual complaints: _ Review of Systems PHQ Score Initial Depression Screen Score: 6 SCORE Detailed Depression Screen Score: 10 Total Depression Screen Score: 16 Did recommend pt discuss her depression w PCP. Denies SI. 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 1. Mixed incontinence (N39.46: Mixed incontinence) S/p Botox 100 units 10/23/20 S/p Botox 200 units 05/28/21, 01/05/23, 04/09/24 PVR today = 77ml No bladder meds. Prior to Botox - severe urgency, nocturia x 3, change pads 3-4x per day. Since Botox - no urgency, no nocturia, no pads. BBSQ 1 total control . Very pleased w improvement. Offered scheduled f/u. Pt prefers to just call when Botox wears off. Ordered: E&M of Est. Patient Low 20-29 Min 59076 2. Other urethral stricture, female (N35.82: Other urethral stricture, female) S/p Cysto/UD 07/07/2022. Urethra normal during recent cysto (Botox) on 04/09/24. Ordered: E&M of Est. Patient Low 20-29 Min 11643 3. Asymptomatic microscopic hematuria (R31.21: Asymptomatic microscopic hematuria) IO UA shows small hgb, trace leuks. No UTI sx. No b.t. on recent scope. No gross hematuria. Ordered: E&M of Est. Patient Low 20-29 Min 95843 Urnls Dip Stick Auto w/o Microscopy POC 73567 Follow-up With When Contact Information [facility] Additional Instructions: Only if needed/new problems arise. No scheduled appointment indicated at this time. Patient Education Urinary Incontinence Problem List/Past Medical History Ongoing Asthma Asymptomatic microscopic hematuria Candidiasis of skin and nail Fibromyalgia GERD (gastroesophageal reflux disease) Greater trochanteric bursitis Hiatal hernia History of colon polyps History of polymyalgia rheumatica Hypothyroidism Incontinence without sensory awareness Microhematuria Mixed incontinence Nocturia Other urethral stricture, female Pure hypercholesterolemia Renal cyst Schatzki's ring Screening for malignant neoplasm of colon Screening mammogram, encounter for Historical No qualifying data Procedure/Surgical History Injection of therapeutic substance into bladder wall (10/23/2020), Urodynamics (12/08/2017), Cystoscopy (10/17/2017), EGD - Esophagogastroduodenoscopy (04/2012), Colonoscopy (04/2010), EGD - Esophagogastroduodenoscopy (04/2010), Colonoscopy (09/2003), Biopsy of breast, Cholecystectomy, Colonoscopy, Tonsillectomy, Tubal ligation. Medications atorvastatin 40 mg Tab, See Instructions ciclopirox topical 0.77% cream, 1 kylie, Topical, BID ibuprofen 600 mg Tab, 600 mg= 1 tab(s), Oral, q6hr, PRN levothyroxine 25 mcg (0.025 mg) Tab, See Instructions Proventil HFA 90 mcg/inh Aerosol, 2 puff(s), Oral, q4hr, PRN traMADOL 50 mg Tab, 1 tab(s), Oral, q4hr Allergies Latex (Hives) iodine (Anaphylactic shock) Social History Alcohol - Denies Alcohol Use, 05/12/2022 Never., 06/12/2024 Substance Abuse - Denies Substance Abuse, 05/12/2022 Never., 06/12/2024 Tobacco Never (less than 100 in lifetime) Tobacco Use:., 06/12/2024 Family History Primary malignant neoplasm of female breast: Grandparent. Primary malignant neoplasm of female genital organ: Mother. Immunizations Vaccine Date Status Comments influenza virus vaccine, inactivated 03/24/2023 Recorded SARS-CoV-2 (COVID-19) mRNAMUL.[id number] 03/24/2023 Recorded SARS-CoV-2 (COVID-19) mRNAMUL.ORD![id number] 07/19/2022 Recorded influenza virus vaccine, inactivated 03/30/2022 [...] 23-valent vaccine 04/28/2014 Recorded influenza virus vaccine, i (more content not included)... Normal [facility] Comment on above: Result Comment: Elec tronically Signed By: JACQUELINE HUFF PA-C\.br\Date and Time Signed: 06/12/24 11:49 EST Inpatient Patient Summaryon 04-09-2024 Inpatient Patient Summary Inpatient Patient Summary [place] [id number] Clinical Summary Person Information Name: TARAH BRISENO Age: 73 Years : 1950 Sex: Female PCP: JACQUELINE HERNANDEZ CNP Marital Status: Race: White Ethnicity: Non- or Language: Salvadorean Visit Id: Visit Reason: URINARY INCONTINENCE Speciality: Acuity: Enc Type: Outpatient Med Service: Surgery Arrival: 04/09/2024 12:44:33 Discharge: Dispo Type: Address: [address] [place] [address] [id number] Provider Notes: Diagnosis: Problems Active Greater trochanteric bursitis Screening mammogram, encounter for Nocturia Other urethral stricture, female Candidiasis of skin and nail Mixed incontinence Screening for malignant neoplasm of colon Pure hypercholesterolemia History of polymyalgia rheumatica Schatzki's ring Fibromyalgia History of colon polyps Hiatal hernia GERD (gastroesophageal reflux disease) Hypothyroidism Incontinence without sensory awareness Asymptomatic microscopic hematuria Renal cyst Asthma Microhematuria Smoking Status: Functional Status: Sensory Deficits: History of Falls: Mobility Assistance Prior to Admission: ADLs: Current Level of Assistance for Self-Care/Mobility: Cognitive Status: Allergies Latex (Hives) iodine (Anaphylactic shock) Laboratory or Other Results This Visit (last charted value for your 04/09/2024 visit) No Laboratory or Other Results This Visit Measurements: Height: 165 cm Weight: 106 kg Blood Pressure: Not Valued / Not Valued BMI: 38.93 kg/m2 Procedures No Procedures Documented Immunizations No Immunizations Documented This Visit Final Med List: albuterol (Proventil HFA 90 mcg/inh Aerosol) 2 Puffs By Mouth every 4 hours as needed Shortness of breath or wheezing. Refills: 0. atorvastatin (atorvastatin 40 mg Tab) TAKE 1 TABLET BY MOUTH DAILY. Refills: 0. ciclopirox topical (ciclopirox topical 0.77% cream) 1 Application Topical 2 times a day. Refills: 3. ibuprofen (ibuprofen 600 mg Tab) 1 Tablets By Mouth every 6 hours as needed Pain/Fever. Refills: 0. levothyroxine (levothyroxine 25 mcg (0.025 mg) Tab) TAKE 1 TABLET BY MOUTH DAILY. Refills: 0. tramadol (traMADOL 50 mg Tab) 1 Tablets By Mouth every 4 hours as needed for pain. Refills: 0. Care Team Members: Attending Physician: Antonio AMBRIZ MD Consulting Physician: Referring Physician: Antonio AMBRIZ MD Follow up: With: Address: When: Antonio AMBRIZ [address] [facility], [address], [place] [address] Business (1) Comments: Please make a follow up appointment with one of our nurse practitioners or physician assistants within two months with a bladder scan to assess your bladder emptying. Have a great day! Patient Education Information: EU - Cystoscopy with Botox Injection Discharge Instructions (Custom) [facility] Main OR Intraoperative Recor don 04-09-2024 Main OR Intraoperative Record Main OR Intraoperative Record IntraOp Document Type FTURO Summary Primary Physician: Antonio AMBRIZ MD Finalized Date/Time: 04/09/24 13:46:51 Pt. Name: TARAH BRISENO/Sex: 1950 Female Med Rec #: [id number] Physician: Antonio AMBRIZ MD Financial #: [id number] Pt. Type: O Room/Bed: / Admit/Disch: 04/09/24 12:44:33 - Institution: Case Times FTURO Entry 1 Patient Times In Room 04/09/24 13:26:00 Out Room 04/09/24 13:40:00 Procedure Times Start 04/09/24 13:28:00 Stop 04/09/24 13:35:00 Anesthesia Times Last Modified By: Jess SALINAS, Mendy Alonzo 04/09/24 13:35:38 General Comments: BOTOX LOT#: [id number], EXP DATE: 05/2026 BOTOX LOT# [id number], EXP. DATE: 05/2026 -Billy BOCANEGRA RN Case Attendance FTURO Entry 1 Entry 2 Entry 3 Case Attendee MADELIN CORDOBA, Antonio Bocanegra RN, Jozef Hudson Role Performed Surgeon - Primary Senior Analytical Chemist - Primary Scrub - Primary Time In 04/09/24 13:26:00 04/09/24 13:26:00 04/09/24 13:26:00 Time Out 04/09/24 13:40:00 04/09/24 13:40:00 04/09/24 13:40:00 Procedure CYSTOSCOPY LOCAL BOTOX CYSTOSCOPY LOCAL BOTOX CYSTOSCOPY LOCAL BOTOX INJECTION(.) INJECTION(.) INJECTION(.) Comments Last Modified By: Jess SALINAS, Mendy Bocanegra RN, Mendy Bocanegra RN, Mendy Alonzo 04/09/24 Magda Alonzo 04/09/24 Magda Alonzo 04/09/24 13:41:23 13:41:23 13:41:23 Surgical Procedures FTURO Entry 1 Procedure Description Procedure CYSTOSCOPY LOCAL BOTOX Modifiers . INJECTION Surgeon Description CYSTOSCOPY, 200 UNITS BOTOX Primary Procedure Yes Primary Surgeon Antonio AMBRIZ MD Start 04/09/24 13:28:00 Stop 04/09/24 13:35:00 Anesthesia Type Local Surgical Service Urology Wound Class 2 - Clean-Contaminated Last Modified By: Mendy Bocanegra RN 04/09/24 13:41:34 General Case Data FTURO Pre-Care Text: Classifies surgical wound, implements aseptic technique, initiates traffic control Entry 1 Case Information OR URO 1 FT Case Level None Wound Class 2 - Clean-Contaminated Specialty Urology Preop Diagnosis URINARY INCONTINENCE Postop Same As Preop Yes Postop Diagnosis URINARY INCONTINENCE Outcomes Met? Yes Last Modified By: Jess SALINAS, Mendy Alonzo 04/09/24 13:41:42 Post-Care Text: The patient is free from [...] 2): Participation Consents / H and P H&P, Surgery/Procedure Operative Site N/A Verified Consent Marking Verified Surgical Site Yes Laterality Verified n/a Verified Procedure Verified Yes Correct Patient Yes Position Verified Availability Equipment, Medication Time Out Antonio AMBRIZ MD, Verified (If Participants Mendy Bocanegra RN Applicable) Anne Calvert Kendall R Time Out Complete 04/09/24 13:28:00 Allergies Reviewed? Yes Allergies Reviewed Self/Patient With Body Position High Lithotomy Prep Area PERINEAL AREA Prep Agents Betasept Skin. Condition Unable to Visualize Description PARTIALLY CLOTHED AND DRAPED Additional None Specimens Collected Vitals - EU Blood Pressure 118/79 Pulse 63 bpm Respirations 16 br/min SPO2 97 % I&O - EU Outcomes Met? Yes Last Modified By: Mendy Bocanegra RN 04/09/24 13:46:33 Post-Care Text: The patient is free from signs and symptoms of injury caused by extraneous objects Sign Out FTURO Entry 1 Before Patient Leaves OR Nurse verbally Yes Nurse verbally Yes confirms with the confirms with the team the name of team that the procedure(s) instrument, sponge, recorded and needle counts are correct (or N/A) Nurse verbally n/a Nurse verbally n/a confirms with the confirms with the team how the team whether there specimen is labeled are any equipment (including patient problems to be name), if applicable addressed Sign Out Complete 04/09/24 13:35:00 Last Modified By: Mendy Bocanegra RN 04/09/24 13:46:50 Case Comments Finalized By: Mendy Bocanegra RN Document Signatures Signed By: Mendy Bocanegra RN 04/09/24 13:46 Normal [facility] Main OR Preoperative Recordo n 04-09-2024 Main OR Preoperative Record Main OR Preoperative Record Holding Area Document Type FTURO Summary Primary Physician: Antonio AMBRIZ MD Finalized Date/Time: 04/09/24 13:07:47 Pt. Name: TARAH BRISENO/Sex: 1950 Female Med Rec #: [id number] Physician: Antonio AMBRIZ MD Financial #: [id number] Pt. Type: O Room/Bed: / Admit/Disch: 04/09/24 12:44:33 - Institution: Case Times Holding FTURO Pre-Care Text: Verifies consent for planned procedure, identifies individual values and wishes concerning care, includes family members in perioperative teaching Secures patient's records' belongings, and valuables, maintains patient's dignity and privacy, and maintains patient confidentiality Entry 1 In Holding 04/09/24 13:01:00 Outcomes Met? Yes Last Modified By: Georgina Palacios RN 04/09/24 13:04:09 Post-Care Text: The patient participates in decisions affecting his or her perioperative plan of care The patient's right to privacy is maintained Surgery Checklist FTURO Entry 1 Patient Birthday, ID Band Check Procedure History and Physical, Identification: Verification: Surgical Consent, With Patient NPO after Midnight: n/a Date/Time: 04/09/24 13:04:00 Personal Items: Glasses, Jewelry Personal Items Rings x2, earrings, Comment: watch Limitations: Up ad rock Complaints of Pain: No Pain Comment: 0/10 Skin Integrity Intact, [place], Warm, & Dry Vitals - EU Blood Pressure 118/79 Pulse 63 bpm Respirations 16 br/min SPO2 97 % Additional Other (See Comment) Specimens Comment Urine specimen negative Specimens Collected RN Reviewed Yes Last Modified By: Georgina Palacios RN 04/09/24 13:07:42 Finalized By: Georgina Palacios RN Document Signatures Signed By: Georgina Palacios RN 04/09/24 13:07 Normal [facility] Operative Reporton Operative Report Operative Report Patient: TARAH BRISENO Age: 73 years Sex: Female : 1950 Associated Diagnoses: None Author: Antonio AMBRIZ MD Procedure Operative Information Details: Date/ Time: 04/09/2024 13:38:00. Pre-Op Dx: Mixed stress and urge urinary incontinence (EST17-EA N39.46, Billing Diagnosis, Medical), Overactive bladder (IMH37-RC N32.81, Billing Diagnosis, Medical). Post-Op Dx: Same. Anesthesia Type: Local. Procedure: Local Cystoscopy with botox injection. Complications: None. Risks/Benefits/Informed Consent: Surgical risks, benefits, details of the procedure have been explained to the patient, Full informed consent has been obtained. Intraoperative Information Prepped: Patient is brought back to the endoscopy suite, Female Prep (Patient is placed in modified [...] in the usual fashion with Betadine solution, 10 cc 2% Xylocaine Jelly is placed per Urethra, After waiting several minutes the Cystoscope is [...] total of 200 units of Botox. The Urethra is: Normal. Botox: 200 units. The ureteral orifices: Show efflux of clear urine. The Bladder is: Normal, Trabeculated Mild (1), No tumor, no stones. Devices Implanted: None. Removal: Cystoscope is removed, The patient tolerated it well. Postoperative Information Discharge: Patient is discharged home with antibiotic coverage, Follow up arranged, F/U with KYLIE within two months to check PVR> . Normal [facility] Comment on above: Result Comment: Elec tronically Signed By: Antonio AMBRIZ MD\.br\Date and Time Signed: 04/09/24 13:40 EDT Outpatient Surgery Discharge Instructionon 04-09-2024 Outpatient Surgery Discharge Instruction Outpatient Surgery Discharge Instruction [address] [address] Patient Discharge Instructions PERSON INFORMATION Name: TARAH BRISENO Date of : 1950 Current Date: 04/09/2024 13:37:27 PHYSICIANS Admitting Physician: Antonio AMBRIZ MD Comment: Discharge Diagnosis: TARAH BRISENO has been given the following list of follow-up instructions, prescriptions, and patient education materials: IF UNABLE TO CONTACT YOUR PHYSICIAN AND YOU FEEL IT IS AN EMERGENCY, GO TO THE NEAREST EMERGENCY ROOM OR CALL 911 Follow up: With: Address: When: [address], [address], [facility] [address] [place] [phone] Business (1) Comments: Please make a follow up appointment with one of our nurse practitioners or physician assistants within two months with a bladder scan to assess your bladder emptying. Have a great day! Comment: PATIENT EDUCATION INFORMATION Instructions: Cystoscopy with Botox injection ? Voiding after the procedure: there may be some pain, burning, urgency, frequency and blood tinged urine following the procedure. These symptoms usually resolve within 2-5 days. Drink the amount of fluid it takes to keep the urine pink to yellow or clear in color. Drinking enough water and fluids will help to ease any discomfort after your procedure. ? It may take a few days to a week to notice a gradual improvement in the overactive bladder symptoms. ? If you are having problems that seem out of the ordinary, please call. ? If unable to contact your physician and you feel it is an emergency, go to the nearest emergency room or call 911 ? Do not lift more than fifteen pounds for 1-2 days. If you see a lot of blood, you probably did too much. ? Diet ? you may resume your normal diet. ? Pain control ? You may take extra strength Tylenol or Motrin for discomfort. ? Call if you have a fever over 100 degrees. SUZANNA Green BARBARA J, have received the attached patient [...] to serve you. Thank you for choosing [facility] Normal [facility] Ambulatory Visit Summaryon 0 02-15-2024 Ambulatory Visit Summary Ambulatory Visit Summary TARAH BRISENO :1950 MRN:[id number]-- Visit Date:02/15/2024 Ambulatory Visit Instructions Your Diagnosis Mixed incontinence Other urethral stricture, female Asymptomatic microscopic hematuria Your Care Team Attending Physician - MADELIN CORDOBA, Antonio Alonzo Primary Care Physician - Shawn CORDOBA, Colby Pickard. This Is Your Medications List Contact prescribing physician if questions or concerns albuterol (Proventil HFA 90 mcg/inh Aerosol) atorvastatin (atorvastatin 40 mg Tab) ciclopirox topical (ciclopirox topical 0.77% cream) ibuprofen (ibuprofen 600 mg Tab) levothyroxine (levothyroxine 25 mcg (0.025 mg) Tab) tramadol (traMADOL 50 mg Tab) Procedures Performed Injection of therapeutic substance into bladder wall (10/23/2020), Urodynamics (12/08/2017), Cystoscopy (10/17/2017), EGD - Esophagogastroduodenoscopy (04/2012), Colonoscopy (04/2010), EGD - Esophagogastroduodenoscopy (04/2010), Colonoscopy (09/2003), Biopsy of breast, Cholecystectomy, Colonoscopy, Tonsillectomy, Tubal ligation. Discharge Vitals Height 165 cm Height 65 in Weight 106 kg Weight 233.2 lb BMI 38.93 What to do next Scheduled Follow-Up Appointments Tuesday 1:00 PM EDT Where: [facility] [address] [address]- You Need to Schedule the Following Appointments Follow Up with MADELIN CORDOBA, JEN Callahan When: Comments: Sched Botox Where: [address] [address]- Medications What How Much When Why Instructions Unchanged albuterol (Proventil HFA 90 mcg/ inh Aerosol) 2 Puffs By Mouth Every 4 hours as needed for Shortness of breath or wheezing Contact prescribing physician if questions or concerns Unchanged atorvastatin (atorvastatin 40 mg Tab) See instructions TAKE 1 TABLET BY MOUTH DAILY Contact prescribing physician if questions or concerns Unchanged ciclopirox topical (ciclopirox topical 0.77% cream) 1 Application Topical 2 times a day Contact prescribing physician if questions or concerns Unchanged ibuprofen (ibuprofen 600 mg Tab) 1 Tablets By Mouth Every 6 hours as needed for Pain/Fever Contact prescribing physician if questions or concerns Unchanged levothyroxine (levothyroxine 25 mcg (0.025 mg) Tab) See instructions TAKE 1 TABLET BY MOUTH DAILY Contact prescribing physician if questions or concerns Unchanged tramadol (traMADOL 50 mg Tab) 1 Tablets By Mouth Every 4 hours as needed for for pain Greater trochanteric bursitis BMI 39.0-39.9,adult Class 1 obesity due to excess calories in adult Nonsmoker Contact prescribing physician if questions or concerns Allergies Latex (Hives) iodine (Anaphylactic shock) Problems Ongoing - Any problem that you are currently receiving treatment for. Asthma Asymptomatic microscopic hematuria Candidiasis of skin and nail Fibromyalgia GERD (gastroesophageal reflux disease) Greater trochanteric bursitis Hiatal hernia History of colon polyps History of polymyalgia rheumatica Hypothyroidism Incontinence without sensory awareness Microhematuria Mixed incontinence Nocturia Other urethral stricture, female Pure hypercholesterolemia Renal cyst Schatzki's ring Screening for malignant neoplasm of colon Screening mammogram, encounter for Patient Survey You may receive a survey via text or e-mail asking about your office visit. Please share your experience with us by completing your survey. We appreciate your feedback and thank you for choosing us for your care. Education Materials Urinary Incontinence Urinary incontinence refers to a [...] stress, or post-traumatic stress disorder (PTSD). ? Spinal cord injury, nerve injury, or other neurological conditions. ? Pelvic organ prolapse. This happens in women when organs move out of place and into the vagina. This movement can prevent the bladder and urethra from working properly. What increases the risk? The following factors may make you more likely to develop this condition: ? Age. The older you are, the higher the risk. ? Obesity. ? Being physically inactive. (more content not included)... Normal [facility] Urology Office/Clinic Noteon 02-15-2024 Urology Office/Clinic Note Urology Office/Clinic Note Chief Complaint follow up HPI Staff 73 yr old here for 6 mth fu. Previous DX: mixed incontinence S/P botox 100 units 10/23/20, 200 units 05/28/21 & 01/05/23. Urethral stricture, s/p Cysto/UD 07/07/22 asymptomatic microscopic hematuria patient states that she is having severe incontinence, does not really want botox again Dysuria: no Incomplete bladder emptying: no Hematuria: no Frequency: no Urgency: severe Nocturia: 3x a night Stream: good stream Leaking: severe Post void dripping: no Wearing pads/ Depends: wears a pad changes 3-4x a day Urge incontinence: yes Stress incontinence: intermittent Incontinence without Sensory Awareness: no Abdominal pain: no Flank pain: no Sexual complaints: no History of Present Illness Tests reviewed: reviewed UA I have reviewed the previous health record information and history for this patient from Dr. Ambriz. I have reviewed and verified the staff HPI to be accurate for this encounter. Review of Systems PHQ Score Initial Depression Screen Score: 0 SCORE ROS - Provider Constitutional: denies weight loss, denies hot flashes. Eyes: denies eye problems. Gastrointestinal: denies nausea, denies vomiting. Cardiovascular: denies chest pain or angina. Integumentary: no dryness Musculoskeletal: denies musculoskeletal symptoms. ENMT: denies otolaryngeal symptoms. Respiratory: no shortness of breath. Heme/Lymph: denies easy bleeding tendency, denies easy bruising tendency. Psychiatric: no confusion, no anxiety. Genitourinary: See HPI. Physical Exam Vitals & Measurements HT: 65 in HT: 165 cm WT: 106 kg WT: 233.2 lb BMI: 38.93 General Appearance: alert , no acute distress, well nourished, well developed female. Assessment/Plan Prior RWR patient. 1. Mixed incontinence (N39.46: Mixed incontinence) S/p Botox 100 units 10/23/20 S/p Botox 200 units 05/28/21 and 01/05/23 PVR (cc): 01/11/23 - 200 Not currently on any bladder medications. Complaints of severe incontinence and not sure if she wants botox again. Pt thinks a lot of her sxs are stemming from stressors of her passing and due to a lot of lifting more recently before her passed. Re-educated pt on OAB vs GERSON incontinence and that there is not a fix all solution unless GERSON sxs are more bothersome. Discussed different medication managements, but pt declines at this moment and would prefer to stick with what she knows works. Discussed limiting pop and coffee. Pt states she only drinks water. -Will schedule Botox. The procedural risks, benefits, details, and treatment alternatives have been discussed with the patient. These include bleeding, infection, continued problems with overactive bladder, inability to empty the bladder which could require an indwelling catheter or need for in/out catheterization to empty the bladder, and need for repeat procedures over time (usually lasts up to six months), as well as fatigue and insomnia, among others. There is a minimal risk of Botox entering the blood stream and causing neurological problems, which is quite rare. Full informed consent has been obtained. Will order Local anesthesia. 2. Other urethral stricture, female (N35.82: Other urethral stricture, female) S/p Cysto/UD 07/07/2022. Pt aware that urethral stricture may return and she may need to have a repeat dilation. Do not think this is the case for now. 3. Asymptomatic microscopic hematuria (R31.21: Asymptomatic microscopic hematuria) C&S 01/03/23 - negative. UA today shows trace-intact blood, negative for nitrites and leuks. Overall this patient has a longstanding history of mixed urinary incontinence. She had success with the Botox and certainly wishes there would be a more permanent fix. I told her there is none. She did carry moderate residual back in December 2022 after previous Botox by Dr. Goss. She agrees to proceed with a repeat Botox instillation with attendant risks as noted above. Antibiotic prophylaxis sent. Follow-up With When Contact Information Antonio AMBRIZ MD, URL [address] [place] [address]- Additional Instructions: Sched Botox Patient Education Urinary Incontinence Overactive Bladder, Adult I, Donnell Paredes, personally scribed for Dr. Ambriz on 02/15/2024 13:26:55. . Documentation recorded by the scribe, Donnell Paredes, accurately reflects the services(s) I performed and decisions made by me. Authenticated by Dr. Ambriz on 02/15/2024 13:29:34. Portions of this record may have been created with voice recognition artificial intelligence software, specifically [employer] and or [employer]fon. Substitutions may have occurred due to the inherent limitations of voice recognition and artificial intelligence software. Problem List/Past Medical History Ongoing Asthma Asymptomatic microscopic hematuria Candidia (more content not included)... Normal [facility] Comment on above: Result Comment: Elec tronically Signed By: Antonio AMBRIZ MD\.br\Date and Time Signed: 02/15/24 13:31 EDT\.br\Electronically Co-Signed By: Donnell Paredes\.br\Date and Time Co-Signed: 02/15/24 13:27 EDT Physician Referralon 024 Physician Referral [id number] Normal [facility] Ambulatory Visit Summaryon 0 10-06-2023 Ambulatory Visit Summary TARAH BRISENO :1950 Visit Date:10/06/2023 Ambulatory Visit Instructions Your Diagnosis BMI 39.0-39.9,adult Class 1 obesity due to excess calories in adult Nonsmoker Your Care Team Attending Physician - Colby Escobar MD Primary Care Physician - Colby Escobar MD This Is Your Medications List albuterol (Proventil HFA 90 mcg/inh Aerosol) atorvastatin [...] Cholecystectomy, Colonoscopy, Tonsillectomy, Tubal ligation. Discharge Vitals Temperature (Oral) 36.7 ?C Heart Rate (Peripheral) 68 Respiratory Rate 16 Blood Pressure 136/80 Height 165 cm Height 65 in Weight 106.8 kg Weight 234.96 lb BMI 39.23 What to do next Scheduled Follow-Up Appointments 2023 10:30 AM EDT With: Colby Escobar MD Where: [facility] [place] Invalid Interpretation Code [address], [address] [place] [address]- \.br\ Tuesday 1:00 PM EDT \.br\ With:\.br\ Where: [facility] ED Note-Physicianon 10-06-19 ED Note-Physician [id number] Normal [facility] Medicine Office/Clini c Noteon 10-06-2023 Family Medicine Office/Clinic Note HPI Staff Tarah is a 73 year old female presenting for Er follow up ER followup: Hospital: [place] Visit date: 10/02/23 Symptoms the patient presented with: right hip pain bilateral hip xrays done showing mild to moderate degenerative changes both SI and hip joints Rxeed medrol dosepak 4mg Current concerns: still having pain in the right hip and it's enough pain she can't sleep at night back and forth from chair to bed at night flu: UTD 03/24/23 questions/concerns: History of Present Illness - Pt here for ER follow up. - Pt is having hip pain. - Side of her L hip. - Medrol is not working. - Cannot sleep. Review of Systems PHQ Score Initial Depression Screen Score: 0 SCORE Physical Exam Vitals & Measurements T: 36.7 ?C(Oral) HR: 68(Peripheral) RR: 16 BP: 136/80 SpO2: 99% HT: 65 in HT: 165 cm WT: 106.8 kg WT: 234.96 lb BMI: 39.23 General: alert, no acute distress ENMT: oral mucosa moist, Cardiovascular: regular rate and rhythm, normal peripheral perfusion Respiratory: Lungs CTA, respirations non labored Extremities: no deformity, no trauma Neurological: oriented x 4, LOC appropriate for age, CN II-XII intact, motor strength equal & normal bilaterally, speech normal Abdomen: Soft, Nontender, Non-distended, + BS Assessment/Plan 1. Greater trochanteric bursitis (M70.60: Trochanteric bursitis, unspecified hip) - Will do steroids - Send to Ortho Ordered: tramadol, 50 mg = 1 tab(s), Oral, q4hr, PRN for pain, # 12 tab(s), Refills(s) 0, Pharmacy: [facility] [id number], 165, cm, 10/06/23 11:01:00 EDT, Height/Length Dosing, 106.8, kg, 10/06/23 11:01:00 EDT, Weight Dosing 2. BMI 39.0-39.9,adult (Z68.39: Body mass index [BMI] 39.0-39.9, adult) - BMI education given Ordered: tramadol, 50 mg = 1 tab(s), Oral, q4hr, PRN for pain, # 12 tab(s), Refills(s) 0, Pharmacy: [facility] [id number], 165, cm, 10/06/23 11:01:00 EDT, Height/Length Dosing, 106.8, kg, 10/06/23 11:01:00 EDT, Weight Dosing Body Mass Index (BMI) documented 3008F Current tobacco non-user 1036F Depression Screening Negative 3352F Influenza immunization administered or previously received 4274F Most recent diastolic blood pressure 80-89 mm Hg 3079F Patient screen for fall risk: no falls in last year or 1 fall with no injury in last year 1101F Systolic BP 130-139 mm Hg (Most Recent) 3075F 3. Class 1 obesity due to excess calories in adult (E66.09: Other obesity due to excess calories) - Diet and exercise advised Ordered: tramadol, 50 mg = 1 tab(s), Oral, q4hr, PRN for pain, # 12 tab(s), Refills(s) 0, Pharmacy: [facility] [id number], 165, cm, 10/06/23 11:01:00 EDT, Height/Length Dosing, 106.8, kg, 10/06/23 11:01:00 EDT, Weight Dosing Body Mass Index (BMI) documented 3008F Current tobacco non-user 1036F Depression Screening Negative 3352F Influenza immunization administered or previously received 4274F Most recent diastolic blood pressure 80-89 mm Hg 3079F Patient screen for fall risk: no falls in last year or 1 fall with no injury in last year 1101F Systolic BP 130-139 mm Hg (Most Recent) 3075F 4. Nonsmoker (Z78.9: Other specified health status) - Please continue to not smoke. Ordered: tramadol, 50 mg = 1 tab(s), Oral, q4hr, PRN for pain, # 12 tab(s), Refills(s) 0, Pharmacy: [facility] [id number], 165, cm, 10/06/23 11:01:00 EDT, Height/Length Dosing, 106.8, kg, 10/06/23 11:01:00 EDT, Weight Dosing Body Mass Index (BMI) documented 3008F Current tobacco non-user 1036F Depression Screening Negative 3352F Influenza immunization administered or previously received 4274F Most recent diastolic blood pressure 80-89 mm Hg 3079F Patient screen for fall risk: no falls in last year or 1 fall with no injury in last year 1101F Systolic BP 130-139 mm Hg (Most Recent) 3075F Orders: methylPREDNISolone, = 1 packet(s), Oral, As Directed, as directed on package labeling, X 6 day(s), # 21 tab(s), Refills(s) 0, Pharmacy: [facility] [id number], 165, cm, 10/06/23 11:01:00 EDT, Height/Length Dosing, 106.8, kg, 10/06/23 11:01:00 EDT, Weight Dosing Follow-up No qualifying data available Patient Education BMI for Adults Problem List/Past Medical History Ongoing Asthma Asymptomatic microscopic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 Altaf Hogue NEUT # 4.3 103/ul Normal 1.4-6.5 [facility] Comment on above: Performed By: #### C BC #### [facility] [address] [place] [address] Dr. Altaf Hogue Neutrophils/100 WBC (Bld) 57.6 % Normal 43.0-75.0 [facility] Comment on above: Performed By: #### C BC #### [facility] [address] [place] [address] Dr. Altaf Hogue Platelet mean volume (Bld) [Entitic vol] 9.7 fL Normal 9.5-13.5 [facility] Comment on above: Performed By: #### C BC #### [facility] [address] [place] [address] Dr. Altaf Hogue PLT 286 103/ul Normal 150-450 [facility] Comment on above: Performed By: #### C BC #### [facility] [address] [place] [address] Dr. Altaf Hogue RBC 4.93 106/ul Normal 4.20-5.40 [facility] Comment on above: Performed By: #### C BC #### [facility] [address] [place] [address] Dr. Altaf Hogue WBC 7.5 103/ul Normal 4.0-11.0 [facility] Comment on above: Performed By: #### C BC #### [facility] [address] [place] [address] Dr. Altaf Hogue FREE T3on 03-31-2022 FREE T3 2.39 pg/mlL Normal 2.18-3.98 [facility] Comment on above: Performed By: #### T SH, FT3, LIPID, CMP #### [facility] [address] [place] [address] Dr. Altaf Hogue FREE T4on 03-31-2022 Free T4 [Mass/Vol] 1.04 ng/dL Normal 0.76-1.46 [facility] Comment on above: Performed By: #### F T4 #### [facility] [address] [address] [address] Altaf Hogue LIPID PROFILEon 03-31-2022 CHOL-HDL RATIO NORM SEE BELOW Normal [facility] Comment on above: Result Comment: 3.3 - 4.4 LOW RISK 4.4 - 7.1 AVERAGE RISK 7.1 - 11.0 MODERATE RISK >11.0 HIGH RISK Performed By: #### T SH, FT3, LIPID, CMP #### [facility] [address] [address] [address] Altaf Hogue Cholesterol [Mass/Vol] 142 mg/dL Normal <=200 [facility] Comment on above: Performed By: #### T SH, FT3, LIPID, CMP #### [facility] [address] [address] [address] Altaf Hogue Cholesterol in HDL [Mass/Vol] 59 mg/dL Normal 40-60 [facility] Comment on above: Performed By: #### T SH, FT3, LIPID, CMP #### [facility] [address] [place] [address] Dr. Altaf Hogue Cholesterol in LDL [Mass/Vol] 64.2 mg/dL Normal [facility] Comment on above: Performed By: #### T SH, FT3, LIPID, CMP #### [facility] [address] [address] [address] Altaf Hogue Cholesterol.total/ Cholesterol in HDL [Mass ratio] 2.4 {ratio} Normal [facility] Comment on above: Performed By: #### T SH, FT3, LIPID, CMP #### [facility] [address] [place] [address] Dr. Altaf Hogue HDL NORMAL > or = 60 mg/dl - LO W CARDIOVASCULAR RISK <40 mg/dl - HIGH CARDIOVASCULAR RISK Normal [facility] Comment on above: Performed By: #### T SH, FT3, LIPID, CMP #### [facility] [address] [place] [address] Dr. Altaf Hogue LDL CALC NORMAL SEE BELOW Normal [facility] Comment on above: Result Comment: <100 mg/dl OPTIMAL 100 - 129 mg/dl NEAR OR ABOVE OPTIMAL 130 - 159 mg/dl BORDERLINE HIGH 160 - 189 mg/dl HIGH >190 mg/dl VERY HIGH Performed By: #### T SH, FT3, LIPID, CMP #### [facility] [address] [address] [address] Altaf Hogue Triglyceride [Mass/Vol] 94 mg/dL Normal <=150 [facility] Comment on above: Performed By: #### T SH, FT3, LIPID, CMP #### [facility] [address] [address] [address] Altaf Hogue VLDL CALC 18.8 mg/dL Normal [facility] Comment on above: Performed By: #### T SH, FT3, LIPID, CMP #### [facility] [address] [address] [address] Altaf Hogue PROF 14(COMP METB)on 022 Albumin [Mass/Vol] 3.3 g/dL Critically low 3.4-5.0 [facility] Comment on above: Performed By: #### T SH, FT3, LIPID, CMP #### [facility] [address] [address] [address] Altaf Hogue Albumin/Globulin [Mass ratio] 0.9 {ratio} Normal [facility] Comment on above: Performed By: #### T SH, FT3, LIPID, CMP #### [facility] [address] [address] [address] Altaf Hogue ALP [Catalytic activity/Vol] 104 U/L Normal 46-116 [facility] Comment on above: Performed By: #### T SH, FT3, LIPID, CMP #### [facility] [address] [address] [address] Altaf Hogue ALT [Catalytic activity/Vol] 24 U/L Normal 14-59 [facility] Comment on above: Performed By: #### T SH, FT3, LIPID, CMP #### [facility] [address] [address] [address] Altaf Hogue Anion gap [Moles/Vol] 11.2 mmol/L Normal [facility] Comment on above: Performed By: #### T SH, FT3, LIPID, CMP #### [facility] [address] [address] [address] Altaf Hogue AST [Catalytic activity/Vol] 18 U/L Normal 15-37 [facility] Comment on above: Performed By: #### T SH, FT3, LIPID, CMP #### [facility] [address] [place] [address] Dr. Altaf Hogue Bilirubin [Mass/Vol] 0.4 mg/dL Normal 0.2-1.0 [facility] Comment on above: Performed By: #### T SH, FT3, LIPID, CMP #### [facility] [address] [place] [address] Dr. Altaf Hogue Calcium [Mass/Vol] 8.9 mg/dL Normal 8.5-10.1 [facility] Comment on above: Performed By: #### T SH, FT3, LIPID, CMP #### [facility] [address] [place] [address] Dr. Altaf Hogue Chloride [Moles/Vol] 107 mmol/L Normal 98-107 [facility] Comment on above: Performed By: #### T SH, FT3, LIPID, CMP #### [facility] [address] [place] [address] Dr. Altaf Hogue CO2 [Moles/Vol] 26.2 mmol/L Normal 21.0-32.0 [facility] Comment on above: Performed By: #### T SH, FT3, LIPID, CMP #### [facility] [address] [place] [address] Dr. Altaf Hogue Creatinine [Mass/Vol] 0.85 mg/dL Normal 0.55-1.02 [facility] Comment on above: Performed By: #### T SH, FT3, LIPID, CMP #### [facility] [address] [place] [address] Dr. Altaf Hogue EGFR-AF SLOVAK >60 Normal >=60 [facility] Comment on above: Performed By: #### T SH, FT3, LIPID, CMP #### [facility] [address] [address] [address] Altaf Hogue EGFR-NON AF SLOVAK >60 Normal >=60 [facility] Comment on above: Performed By: #### T SH, FT3, LIPID, CMP #### [facility] [address] [address] [address] Altaf Hogue Globulin (S) [Mass/Vol] 3.8 g/dL Normal [facility] Comment on above: Performed By: #### T SH, FT3, LIPID, CMP #### [facility] [address] [address] [address] Altaf Hogue Glucose [Mass/Vol] 88 mg/dL Normal 74-106 [facility] Comment on above: Performed By: #### T SH, FT3, LIPID, CMP #### [facility] [address] [address] [address] Altaf Hogue Potassium [Moles/Vol] 4.4 mmol/L Normal 3.5-5.1 [facility] Comment on above: Performed By: #### T SH, FT3, LIPID, CMP #### [facility] [address] [place] [address] Dr. Altaf Hogue Protein [Mass/Vol] 7.1 g/dL Normal 6.4-8.2 [facility] Comment on above: Performed By: #### T SH, FT3, LIPID, CMP #### [facility] [address] [place] [address] Dr. Altaf Hogue Sodium [Moles/Vol] 140 mmol/L Normal 136-145 [facility] Comment on above: Performed By: #### T SH, FT3, LIPID, CMP #### [facility] [address] [address] [address] Altaf Hogue Urea nitrogen [Mass/Vol] 15.0 mg/dL Normal 7.0-18.0 [facility] Comment on above: Performed By: #### T SH, FT3, LIPID, CMP #### [facility] [address] [place] [address] Dr. Altaf Hogue Urea nitrogen/Creatinin e [Mass ratio] 17.6 mg/mg Normal [facility] Comment on above: Performed By: #### T SH, FT3, LIPID, CMP #### [facility] [address] [place], [place] [address] Dr. Altaf Hogue TSHon 03-31-2022 TSH 1.010 uIU/mL Normal 0.358-3.740 [facility] Comment on above: Performed By: #### T SH, FT3, LIPID, CMP #### [facility] [address] [place], [place] [address] ABD/PELVIS WO CONon [...] by: DANIELLE YAP Date: 2021-06-25 13:32 Normal [facility] Vital Signs Date Time Vital Sign Value Performing Clinician Jasmin link 01-28-2025 11:09-0400 Diastolic blood pressure 75 mm[Hg] Jacqueline Hernandez RECRUITER ACCOUNT MANAGER Work Phone: [facility] 01-28-2025 11:09-0400 Heart rate 61 /min Jacqueline Hernandez RECRUITER ACCOUNT MANAGER Work Phone: [facility] 01-28-2025 11:09-0400 Systolic blood pressure 118 mm[Hg] Jacqueline Hernandez RECRUITER ACCOUNT MANAGER Work Phone: [facility] 01-16-2025 11:05-0400 Body height 163.83 cm Jacqueline Hernandez APRN Work Phone: [facility] 01-16-2025 11:05-0400 Body mass index (BMI) [Ratio] 39.4 kg/m2 Jacqueline Hernandez RECRUITER ACCOUNT MANAGER Work Phone: [facility] 01-16-2025 11:05-0400 Body temperature 98 [degF] Jacqueline Hernandez RECRUITER ACCOUNT MANAGER Work Phone: [facility] 01-16-2025 11:05-0400 Body weight 105.68 kg Jacqueline Hernandez RECRUITER ACCOUNT MANAGER Work Phone: [facility] 01-16-2025 11:05-0400 Diastolic blood pressure 76 mm[Hg] Jacqueline Hernandez APRN Work Phone: [facility] 01-16-2025 11:05-0400 Heart rate 80 /min Jacqueline Hernandez APRN Work Phone: [facility] 01-16-2025 11:05-0400 SaO2% (BldA) [Mass fraction] 97 % Jacqueline Hernandez RECRUITER ACCOUNT MANAGER Work Phone: [facility] 01-16-2025 11:05-0400 Systolic blood pressure 134 mm[Hg] Jacqueline Hernandez APRN Work Phone: [facility] 01-10-2025 14:00-0400 Diastolic blood pressure 66 mm[Hg] Vicky Downing MD Work Phone: [facility] 01-10-2025 14:00-0400 Heart rate 53 /min Vicky Downing MD Work Phone: [facility] 01-10-2025 14:00-0400 Respiratory rate 18 /min Vicky Downing MD Work Phone: [facility] 01-10-2025 14:00-0400 SaO2% (BldA) [Mass fraction] 98 % Vicky Downing MD Work Phone: [facility] 01-10-2025 14:00-0400 Systolic blood pressure 150 mm[Hg] Vicky Downing MD Work Phone: [facility] 01-10-2025 12:10-0400 Body height 162.6 cm Vicky Downing MD Work Phone: [facility] 01-10-2025 12:10-0400 Body mass index (BMI) [Ratio] 39.48 kg/m2 Vicky Downing MD Work Phone: [facility] 01-10-2025 12:10-0400 Body temperature 97.3 [degF] Vicky Downing MD Work Phone: [facility] 01-10-2025 12:10-0400 Body weight 104.33 kg Vicky Downing MD Work Phone: [facility] 10-18-2024 10:47-0400 Body height 163.83 cm Jacqueline Hernandez APRN Work Phone: [facility] 10-18-2024 10:47-0400 Body mass index (BMI) [Ratio] 38.5 kg/m2 Jacqueline Hernandez APRN Work Phone: [facility] 10-18-2024 10:47-0400 Body weight 103.5 kg Jacqueline Hernandez APRN Work Phone: [facility] 10-18-2024 10:47-0400 Diastolic blood pressure 70 mm[Hg] Jacqueline Gonzalesdo RECRUITER ACCOUNT MANAGER Work Phone: [facility] 10-18-2024 10:47-0400 Systolic blood pressure 125 mm[Hg] Jacqueline Gonzaleschantalvickijose RECRUITER ACCOUNT MANAGER Work Phone: [facility] 10-03-2024 12:10-0400 Diastolic blood pressure 65 mm[Hg] Jacqueline Mary RECRUITER ACCOUNT MANAGER Work Phone: [facility] 10-03-2024 12:10-0400 Heart rate 53 /min Jacqueline Mary RECRUITER ACCOUNT MANAGER Work Phone: [facility] 10-03-2024 12:10-0400 Respiratory rate 16 /min Jacqueline Gonzalesdo RECRUITER ACCOUNT MANAGER Work Phone: [facility] 10-03-2024 12:10-0400 SaO2% (BldA) [Mass fraction] 96 % Jacqueline Gonzalesdo RECRUITER ACCOUNT MANAGER Work Phone: [facility] 10-03-2024 12:10-0400 Systolic blood pressure 122 mm[Hg] Jacqueline Gonzalesdo RECRUITER ACCOUNT MANAGER Work Phone: [facility] 10-03-2024 10:49-0400 Body height 163.83 cm Jacqueline Gonzalesdo RECRUITER ACCOUNT MANAGER Work Phone: [facility] 10-03-2024 10:49-0400 Body weight 104.32 kg Jacqueline Christiejose RECRUITER ACCOUNT MANAGER Work Phone: [facility] 09-06-2024 10:39-0500 Body height 165.1 cm [facility] 09-06-2024 10:39-0500 Body mass index (BMI) [Ratio] 39.4 kg/m2 [facility] 09-06-2024 10:39-0500 Body weight 107.6 kg [facility] 08-07-2024 11:35-0500 Body height 165.1 cm [facility] 08-07-2024 11:35-0500 Body mass index (BMI) [Ratio] 39.3 kg/m2 [facility] 08-07-2024 11:35-0500 Body temperature 98.1 [degF] [facility] 08-07-2024 11:35-0500 Body weight 107.16 kg [facility] 08-07-2024 11:35-0500 Diastolic blood pressure 72 mm[Hg] [facility] 08-07-2024 11:35-0500 Heart rate 76 /min [facility] 08-07-2024 11:35-0500 SaO2% (BldA) [Mass fraction] 98 % [facility] 08-07-2024 11:35-0500 Systolic blood pressure 126 mm[Hg] [facility] 06-12-2024 15:08-0500 Body height 165.1 cm [facility] 06-12-2024 15:08-0500 Body mass index (BMI) [Ratio] 39.8 kg/m2 [facility] 06-12-2024 15:08-0500 Body temperature 97.3 [degF] [facility] 06-12-2024 15:08-0500 Body weight 108.52 kg [facility] 06-12-2024 15:08-0500 Diastolic blood pressure 84 mm[Hg] [facility] 06-12-2024 15:08-0500 Heart rate 67 /min [facility] 06-12-2024 15:08-0500 SaO2% (BldA) [Mass fraction] 97 % [facility] 06-12-2024 15:08-0500 Systolic blood pressure 132 mm[Hg] [facility] 06-12-2024 10:58-0500 Blood Pressure Location JACQUELINE HUFF [facility] 06-12-2024 10:58-0500 Diastolic blood pressure 86 mm[Hg] JACQUELINE HUFF [facility] 06-12-2024 10:58-0500 Heart rate 78 /min JACQUELINE HUFF [facility] 06-12-2024 10:58-0500 Systolic blood pressure 132 mm[Hg] JACQUELINE HUFF [facility] 02-17-2024 11:32-0400 Diastolic blood pressure 68 mm[Hg] [facility] 02-17-2024 11:32-0400 Systolic blood pressure 116 mm[Hg] [facility] 02-17-2024 11:26-0400 Body height 165.1 cm [facility] 02-17-2024 11:26-0400 Body mass index (BMI) [Ratio] 39.1 kg/m2 [facility] 02-17-2024 11:26-0400 Body weight 106.59 kg [facility] 02-17-2024 11:26-0400 Heart rate 72 /min [facility] 01-10-2024 14:04-0400 Body height 165.1 cm [facility] 01-10-2024 14:04-0400 Body mass index (BMI) [Ratio] 39.4 kg/m2 [facility] 01-10-2024 14:04-0400 Body weight 107.5 kg [facility] 01-10-2024 14:04-0400 Diastolic blood pressure 78 mm[Hg] [facility] 01-10-2024 14:04-0400 Heart rate 72 /min [facility] 01-10-2024 14:04-0400 SaO2% (BldA) [Mass fraction] 98 % [facility] 01-10-2024 14:04-0400 Systolic blood pressure 118 mm[Hg] [facility] 07-27-2023 10:34-0500 Blood Pressure Location Antonio AMBRIZ [facility] 07-27-2023 10:34-0500 Diastolic blood pressure 67 mm[Hg] Antonio AMBRIZ [facility] 07-27-2023 10:34-0500 Heart rate 62 /min Antonio AMBRIZ [facility] 07-27-2023 10:34-0500 Respiratory rate 16 /min Antonio AMBRIZ [facility] 07-27-2023 10:34-0500 Systolic blood pressure 106 mm[Hg] Antonio AMBRIZ [facility] 08-10-2022 12:37-0500 Blood Pressure Location Oh RICE [facility] 08-10-2022 12:37-0500 Diastolic blood pressure 85 mm[Hg] Oh RICE [facility] 08-10-2022 12:37-0500 Heart rate 84 /min Oh RICE [facility] 08-10-2022 12:37-0500 Respiratory rate 16 /min Oh RICE [facility] 08-10-2022 12:37-0500 Systolic blood pressure 128 mm[Hg] Oh RICE [facility] 05-12-2022 13:16-0400 Blood Pressure Location Leonid MARSHALLL [facility] 05-12-2022 13:16-0400 Diastolic blood pressure 82 mm[Hg] Leonid MARSHALLL [facility] 05-12-2022 13:16-0400 Heart rate 80 /min Leonid MARSHALLL [facility] 05-12-2022 13:16-0400 Respiratory rate 16 /min Leonid MARSHALLJoe [facility] 05-12-2022 13:16-0400 Systolic blood pressure 122 mm[Hg] Leonid MARSHALLL [facility] 01-19-2022 09:43-0400 Blood Pressure Location Vida Desouza Jr. [facility] 01-19-2022 09:43-0400 Diastolic blood pressure 85 mm[Hg] Vida Desouza Jr. [facility] 01-19-2022 09:43-0400 Heart rate 82 /min Vida Desouza Jr. [facility] 01-19-2022 09:43-0400 Systolic blood pressure 134 mm[Hg] Vida Desouza Jr. [facility] 11-12-2021 11:37-0400 Blood Pressure Location Vida Desouza Jr. [facility] 11-12-2021 11:37-0400 Diastolic blood pressure 81 mm[Hg] Vida Desouza Jr. [facility] 11-12-2021 11:37-0400 Heart rate 78 /min Vida Desouza Jr. [facility] 11-12-2021 11:37-0400 Respiratory rate 16 /min Vida Desouza Jr. [facility] 11-12-2021 11:37-0400 Systolic blood pressure 132 mm[Hg] Vida Deo Fermin [facility] Encounters Encounter Date Encounter Type Care Provider Facility Start: 02-11-2025 End: 02-11-2025 Bamboo flowsheet Yancy Carr PA Work Phone: [facility] Start: 02-11-2025 End: 02-11-2025 Bamboo flowsheet [facility] Start: 02-11-2025 End: 02-11-2025 ambulatory YANCY CARR Not Available Start: 02-11-2025 End: 02-11-2025 Office outpatient visit 15 minutes Yancy GUNTER Work Phone: [facility] Comment on above: Melanocytic nevus of trunk (Primary Dx); Seborrheic keratosis; Inflamed seborrheic keratosis Start: 01-28-2025 End: 01-28-2025 ambulatory Jacqueline Hernandez APRN Work Phone: [facility] Work Phone: Start: 01-28-2025 End: 01-28-2025 Patient encounter procedure [place] APRN -[facility] Work Phone: Start: 01-17-2025 End: 01-17-2025 Follow-up encounter Jaclyn Stewart APRN.INTERIOR DECORATOR Work Phone: Gastroenterology Comment on above: Results Start: 01-16-2025 End: 01-16-2025 ambulatory Jacqueline Hernandez APRN Work Phone: [facility] Work Phone: Start: 01-16-2025 End: 01-16-2025 Patient encounter procedure Jacqueline Hernandez APRN INTERIOR DECORATOR -[facility] Work Phone: Start: 01-10-2025 ambulatory RAUL LEWIS Facil ity:[facility] Start: 01-10-2025 End: 01-10-2025 Subsequent hospital visit by physician Vicky Downing MD Work Phone: Gastroenterology Comment on above: Eosinophilic esophag itis [K20.0] Start: 01-03-2025 End: 01-03-2025 ambulatory Awa Lemon RNpower engineer Start: 12-06-2024 End: 12-06-2024 ambulatory SAMUEL SHORE Not Available Start: 10-18-2024 End: 10-18-2024 Bamboo flowsheet Fatuma A Felter RECRUITER ACCOUNT MANAGER-INTERIOR DECORATOR Work Phone: [facility] Start: 10-18-2024 End: 10-18-2024 Bamboo flowsheet Fatuma A Felter RECRUITER ACCOUNT MANAGER-INTERIOR DECORATOR Work Phone: [facility] Start: 10-18-2024 End: 10-18-2024 ambulatory FATUMA A FELTER Not Available Start: 10-18-2024 End: 10-18-2024 Patient encounter procedure Fatuma A Felter RECRUITER ACCOUNT MANAGER-INTERIOR DECORATOR Work Phone: [facility] Comment on above: Inflamed seborrheic keratosis Start: 10-18-2024 End: 10-18-2024 ambulatory Jacqueline Hernandez APRN Work Phone: [facility] Work Phone: Start: 10-18-2024 End: 10-18-2024 Patient encounter procedure Jacqueline Hernandez RECRUITER ACCOUNT MANAGER Work Phone: [facility] Work Phone: Start: 10-16-2024 End: 10-16-2024 ambulatory RAUL LEWIS Facility:[facility] Start: 10-16-2024 End: 10-16-2024 Patient encounter procedure Jaclyn Stewart RECRUITER ACCOUNT MANAGER.INTERIOR DECORATOR Work Phone: Gastroenterology Comment on above: Eosinophilic esophag itis (Primary Dx); Esophageal lesion Start: 10-15-2024 End: 10-16-2024 Chart abstracting Blanca Desouza RNpower engineer Start: 10-03-2024 Non-patient / Non-visit Jacqueline Hernandez APRN Work Phone: [facility] Work Phone: Start: 10-03-2024 End: 10-03-2024 Admission to same day surgery center Jacqueline Hernandez RECRUITER ACCOUNT MANAGER Work Phone: [facility] Work Phone: Start: 10-03-2024 End: 10-03-2024 ambulatory Jacqueline Hernandez RECRUITER ACCOUNT MANAGER Work Phone: [facility] Work Phone: Start: 09-12-2024 End: 09-12-2024 Bamboo flowsheet Fatuma A Felter RECRUITER ACCOUNT MANAGER-INTERIOR DECORATOR Work Phone: [facility] Start: 09-12-2024 End: 09-12-2024 Bamboo flowsheet Fatuma A Felter RECRUITER ACCOUNT MANAGER-INTERIOR DECORATOR Work Phone: [facility] Start: 09-12-2024 End: 09-12-2024 ambulatory FATUMA A FELTER Not Available Start: 09-12-2024 End: 09-12-2024 Patient encounter procedure Fatuma A Felter RECRUITER ACCOUNT MANAGER-INTERIOR DECORATOR Work Phone: [facility] Comment on above: Inflamed seborrheic keratosis Start: 09-06-2024 End: 09-06-2024 ambulatory [facility] Work Phone: Start: 09-06-2024 End: 09-06-2024 Patient encounter procedure [facility] Work Phone: Start: 2024 End: 2024 Bamboo flowsheet Fatuma A Felter RECRUITER ACCOUNT MANAGER-INTERIOR DECORATOR Work Phone: [facility] Start: 2024 End: 2024 Bamboo flowsheet Fatuma Cartagena Felter RECRUITER ACCOUNT MANAGER-INTERIOR DECORATOR Work Phone: [facility] Start: 2024 End: 2024 Patient encounter procedure Fatuma Cartagena Felter RECRUITER ACCOUNT MANAGER-INTERIOR DECORATOR Work Phone: [facility] Comment on above: Inflamed seborrheic keratosis Start: 2024 End: 2024 ambulatory FATUMA A FELTER Not Available Start: 08-07-2024 End: 08-07-2024 ambulatory [facility] Work Phone: Start: 08-07-2024 End: 08-07-2024 Patient encounter procedure [facility] Work Phone: Start: 06-12-2024 End: 06-12-2024 Patient encounter procedure [facility] Work Phone: Start: 06-12-2024 End: 06-12-2024 ambulatory JACQUELINE HUFF Facility:[facility] Start: 06-12-2024 End: 06-12-2024 Patient encounter procedure JACQUELINE HUFF [facility] Start: 04-09-2024 End: 04-09-2024 ambulatory Antonio AMBRIZ [facility] Start: 04-09-2024 End: 04-09-2024 Patient encounter procedure Antonio AMBRIZ [facility] Start: 04-02-2024 End: 04-02-2024 ambulatory Antonio AMBRIZ Facility:[facility] Start: 04-02-2024 End: 04-02-2024 Patient encounter procedure Antonio AMBRIZ [facility] Start: 03-26-2024 ambulatory Colby Escobar Facility :[facility] Start: 02-17-2024 End: 02-17-2024 ambulatory [facility] Work Phone: Start: 02-17-2024 End: 02-17-2024 Patient encounter procedure [facility] Work Phone: Start: 02-15-2024 End: 02-15-2024 ambulatory Antonio AMBRIZ Facility:[facility] Start: 02-15-2024 End: 02-15-2024 Patient encounter procedure Antonio AMBRIZ [facility] Start: 01-10-2024 End: 01-10-2024 ambulatory [facility] Work Phone: Start: 01-10-2024 End: 01-10-2024 Patient encounter procedure [facility] Work Phone: Start: 12-08-2023 End: 12-08-2023 ambulatory Colby Escobar Facility[facility] Start: 10-06-2023 End: 10-06-2023 ambulatory Colby Escobar [facility] Start: 07-27-2023 End: 07-27-2023 ambulatory Antonio AMBRIZ Facility:[facility] [place] Start: 07-27-2023 End: 07-27-2023 Patient encounter procedure Antonio AMBRIZ [facility] Start: 05-10-2023 End: 05-10-2023 Lab Drop off Colby Escobar [facility] Start: 01-11-2023 End: 01-11-2023 Patient encounter procedure Oh GOSS [facility] Start: 01-05-2023 End: 01-05-2023 Patient encounter procedure Oh GOSS [facility] Start: 12-31-2022 End: 12-31-2022 Lab Drop off Oh GOSS [facility] Start: 08-10-2022 End: 08-10-2022 Patient encounter procedure Oh GOSS [facility] Start: 05-12-2022 End: 05-12-2022 Patient encounter procedure Leonid GERBER [facility] Start: 05-12-2022 End: 05-13-[address] RAUL LEWIS Facility:[facility] Start: 03-31-2022 End: 04-01-[address] RAUL LEWIS Facility:[facility] Start: 02-09-2022 End: 03-19-2022 Pre-admission assessment Vida Desouza Jr. [facility] Start: 01-20-2022 End: 02-05-2022 Pre-admission assessment Vida Desouza Jr. [facility] Start: 01-19-2022 End: 01-19-2022 Patient encounter procedure Vida Desouza Jr. [facility] Start: 11-12-2021 End: 11-12-2021 Patient encounter procedure Vida Desouza Jr. [facility] Start: 06-25-2021 End: 06-26-[address] RAUL LEWIS Facility:[facility] Procedures Date Procedure Procedure Detail Performing Clinician Start: 02-11-2025 CRYOTHERAPY SKIN LESION Yancy GUNTER Work Phone: Start: 01-10-2025 Esophagoscp rig transoral hypopharynx crv hebert Stewart RECRUITER ACCOUNT MANAGER.INTERIOR DECORATOR Work Phone: Start: 10-18-2024 CRYOTHERAPY SKIN LESION Fatuma Phipps RECRUITER ACCOUNT MANAGER-INTERIOR DECORATOR Work Phone: Start: 10-03-2024 Esophagogastroduodenoscopy Jacqueline Gonzaleschantalbenjamin RECRUITER ACCOUNT MANAGER Work Phone: Start: 09-12-2024 CRYOTHERAPY SKIN LESION Fatuma Cartagena Feltnicki RECRUITER ACCOUNT MANAGER-INTERIOR DECORATOR Work Phone: Start: 2024 CRYOTHERAPY SKIN LESION Fatuma Phipps RECRUITER ACCOUNT MANAGER-INTERIOR DECORATOR Work Phone: Start: 10-23-2020 Injection of therapeutic substance into bladder wall Vida Desouza Jr. Start: 12-08-2017 Urodynamic studies Vida Desouza Jr. Start: 10-17-2017 Cystoscopy Vida Desouza Jr. Comment on above: with Urethral dilation Start: 04-17-2012 Esophagogastroduodenoscopy Leonid GERBER Start: 04-17-2010 Colonoscopy Leonid GERBER Start: 04-17-2010 Esophagogastroduodenoscopy Leonid GERBER Start: 09-16-2003 Colonoscopy Leonid GERBER Biopsy of breast Vida almanza Jr. Cholecystectomy Vida Desouza Jr. Colonoscopy Vida Adair Ligation of fallopian tube Jona Desouza Jr. Tonsillectomy Vida tejada Plan of Treatment Date Care Activity Detail Author Start: 2027 RSV Vaccine (1 - 1-dose 75+ series) RSV Vaccine (1 - 1-dose 75+ series) [facility] Start: 06-26-2027 Screening for malignant neoplasm of colon [facility] Start: 02-10-2026 End: 02-10-2026 Patient encounter procedure 02/10/2026 10:00 AM EDT Office Visit [facility] [address] [place] [phone] Yancy Carr PA [address] [place] [address] [facility] Start: 04-19-2025 End: 01-17-2026 EGD - THERAPEUTIC, EUS, OR TUBE INTERVENTIONS EGD - THERAPEUTIC, EUS, OR TUBE INTERVENTIONS Endoscopy Routine Eosinophilic esophagitis Expected: 04/19/2025, Expires: 01/17/2026 [facility] Work Phone: Comment on above: Expected: 04/19/2025, Expires: Start: 03-18-2025 Influenza vaccination [facility] Start: 02-11-2025 End: 02-11-2025 Patient encounter procedure 02/11/2025 10:00 AM EDT Office Visit [facility] [address] [place] [address] Yancy Carr PA [address] [place] [address] [facility] Start: 01-10-2025 End: 01-10-2025 Patient encounter procedure 01/10/2025 1:00 PM EDT Appointment Gastroenterology [address] [place] [address] Vicky Downing MD [address] [place] [address] Eosinophilic esophagitis [K20.0] Gastroenterology Comment on above: Eosinophilic esophagitis [K20.0] Start: 12-11-2024 End: 10-16-2025 EGD - THERAPEUTIC, EUS, OR TUBE INTERVENTIONS EGD - THERAPEUTIC, EUS, OR TUBE INTERVENTIONS Endoscopy Routine Eosinophilic esophagitis Esophageal lesion Expected: 12/11/2024 (Approximate), Expires: 10/16/2025 [facility] Work Phone: Comment on above: Expected: 12/11/2024 (Approximate), Expi res: 10/16/2025 Start: 11-19-2024 End: 11-19-2024 Patient encounter procedure 11/19/2024 1:55 PM EDT Office Visit [facility] [address] [place] [phone] Fatuma Phipps, RECRUITER ACCOUNT MANAGER-INTERIOR DECORATOR [address] [place] [address] [facility] Start: 10-18-2024 End: 10-18-2024 Patient encounter procedure 10/18/2024 10:25 AM EDT Office Visit [facility] [address] [place] [phone] Fatuma Phipps, RECRUITER ACCOUNT MANAGER-INTERIOR DECORATOR [address] [place] [address] [facility] Start: 10-03-2024 [facility] Start: 09-12-2024 End: 09-12-2024 Patient encounter procedure 09/12/2024 1:10 PM EST Office Visit [facility] [address] [place] [address] Fatuma Phipps, RECRUITER ACCOUNT MANAGER-INTERIOR DECORATOR [address] [place] [address] [facility] Start: 2024 End: 2024 Patient encounter procedure 2024 9:40 AM EST Office Visit [facility] [address] [place] [phone] Fatuma Phipps, RECRUITER ACCOUNT MANAGER-INTERIOR DECORATOR [address] [place] [address] Arrived [facility] Comment on above: Arrived Start: 08-07-2024 Patient referral [facility] Work Phone: Start: 07-18-2024 Advance Directive Discussion Advance Directive Discussion [facility] Start: 07-18-2024 Medicare Advantage Annual Wellness Visit Medicare Advantage Annual Wellness Visit [facility] Start: 03-18-2024 Covid-19 Vaccine ( season) Covid-19 Vaccine ( season) [facility] Start: 03-18-2024 Influenza vaccination Influenza Vaccine (#1) [facility] Start: 2017 Pneumococcal Vaccine: 65+ Years (2 of 2 - PCV) Pneumococcal Vaccine: 65+ Years (2 of 2 - PCV) [facility] Start: 2017 Screening for osteoporosis Bone Density Screening [facility] Start: 04-28-2015 Pneumococcal Vaccine: 50+ (2 of 2 - PCV) Pneumococcal Vaccine: 50+ (2 of 2 - PCV) [facility] Start: 04-28-2015 Pneumococcal Vaccine: 65+ Years (2 of 2 - PCV) Pneumococcal Vaccine: 65+ Years (2 of 2 - PCV) [facility] Start: 04-06-2007 Diabetes Screening Diabetes Screening [facility] Start: 2002 Shingrix Vaccine (1 of 2) Shingrix Vaccine (1 of 2) [facility] Start: 1997 Lipid panel Lipid Screening [facility] Start: 1997 Screening for malignant neoplasm of colon [facility] Start: 1992 Screening for malignant neoplasm of breast [facility] Start: 1971 Urine microalbumin profile DTaP,Tdap,Td Vaccine (1 - Tdap) [facility] Start: 1970 Anxiety Screening Anxiety Screening [facility] Start: 1970 Depression Screening Depression Screening [facility] Start: 1970 Hepatitis C screening Hepatitis C Screening [facility] Start: 1952 Screening for malignant neoplasm of colon [facility] Comprehensive metabolic 2000 panel - Serum or Plasma [facility] DXA Skeletal system.axial Views for bone density [facility] MG Breast - bilatera l Screening [facility] Patient Education Hiatal hernia Esophageal stricture Know your Meds [facility] Work Phone: Patient referral [facility] Work Phone: Tissue Pathology biopsy report [facility] Work Phone: Comment on above: Release Upon Ordering for 1 Occurrences starting 01/10/2025, 1 completed [facility] Immunizations Immunization Date Immunization Notes Care Provider Fa cility 03-24-2023 influenza virus vacc ine, unspecified formulation Colby Escobar [facility] 03-24-2023 SARS-CoV-2 (COVID-19 ) [id number] Colby sEcobar [facility] 07-19-2022 SARS-CoV-2 (COVID-19 ) [id number].[id number] Oh GOSS [facility] 03-30-2022 influenza virus vacc ine, unspecified formulation Oh GOSS [facility] 05-19-2021 SARS-CoV-2 (COVID-19 ) mRNA-1273 vaccine Oh GOSS [facility] 04-24-2021 influenza virus vacc ine, unspecified formulation Oh GOSS [facility] Comment on above: Result Comment: 2022: 67 10-04-2020 SARS-CoV-2 (COVID-19 ) mRNA-1273 vaccine Vida Desouza Jr. [facility] 09-06-2020 SARS-CoV-2 (COVID-19 ) mRNA-1273 vaccine Vida Desouza Jr. [facility] 04-17-2020 influenza virus vacc ine, unspecified formulation Vida Deo Fermin [facility] 06-13-2019 influenza virus vacc ine, unspecified formulation Oh GOSS [facility] 05-18-2018 influenza virus vacc ine, unspecified formulation Oh RICE [facility] 06-08-2015 influenza virus vacc ine, unspecified formulation Oh GOSS [facility] 04-28-2014 influenza virus vacc ine, unspecified formulation Oh GOSS [facility] 04-28-2014 pneumococcal polysaccharide vaccine, 23 valent [facility] 05-13-2013 influenza virus vacc ine, unspecified formulation Oh GOSS [facility] Payers Date Payer Category Payer Self-pay 2024 Medicare (Managed Care) 1.2. [id number] 2023 Private Health Insurance [id number] 1959 Medicare [id number] 1950 Unknown [id number] 2.16.84 [id number] 1952 Unknown [id number] 2.16.84 [id number] 1952 Unknown [id number] 2.16.84 [id number] 1952 Unknown [id number] 2.16.840.1.349325.3.579.2.727 1952 Unknown [id number] 2.16.840.1.763927.3.579.2.727 1952 Unknown [id number] 2.16.840.1.953649.3.579.2.727 1952 Unknown [id number] 2.16.840.1.589759.3.579.2.727 1952 Unknown [id number] 2.16.840.1.530355.3.579.2.727 1952 Unknown [id number] 2.16.840.1.465139.3.579.2.727 1952 Unknown [id number] 2.16.840.1.882956.3.579.2.727 1952 Unknown [id number] 2.16.840.1.033215.3.579.2.727 1952 Unknown [id number] 2.16.840.1.635852.3.579.2.1259 1952 Unknown [id number] 2.16.840.1.563647.3.579.2.1259 1952 Unknown [id number] 2.16.840.1.441159.3.579.2.1259 1952 Unknown [id number] 2.16.840.1.286790.3.579.2.1259 1952 Unknown [id number] 2.16.840.1.085503.3.579.2.1259 Medicare Medicare [id number] Unknown [facility] [id number] Unknown [id number] [id number] Social History Date Type Detail Facility Start: 11-12-2021 End: 12-17-2022 Tobacco smoking status Never smoked tobacco (finding) [facility] Start: 02-10-2024 End: 02-11-2025 Sex Assigned At Female [facility] Tobacco smoking status Never [facility] [place] Start: 1950 Sex Assigned At Female F [facility] Start: 08-07-2024 End: 10-18-2024 Sex Female (finding) [facility] Start: 12-17-2022 End: 10-16-2024 Tobacco use and exposure Smokeless tobacco non-user [facility] Start: 02-10-2024 End: 02-11-2025 History of Social function [facility] Start: 1950 Sex assigned at Not on file [facility] consumption unknown [facility] Start: 10-16-2024 End: 01-10-2025 Alcoholic beverage intake Lifetime non-drinker (finding) [facility] Goals Date Patient Goal Desired Activity /State Functional Status Date Assessment Result Facility 06-12-2024 Functional Status N/A [facility] 04-09-2024 Functional Status N/A [facility] 02-15-2024 Functional Status N/A [facility] 07-27-2023 Functional Status N/A [facility] 01-11-2023 Functional Status N/A [facility] 12-23-2022 Functional Status N/A [facility] 08-10-2022 Functional Status N/A [facility] 05-12-2022 Functional Status N/A [facility] 01-19-2022 Functional Status N/A [facility] Clinical Notes 11-12-2021 to 02-11-2025 LYRIC Whitley - 02/11/2025 10:00 AM EDTTelephone Encounter - Jaclyn Stewart APRN.INTERIOR DECORATOR - 01/17/2025 9:51 AM EDTTelephone Encounter - Jaclyn Stewart APRN.INTERIOR DECORATOR - 01/17/2025 9:51 AM EDT Note Date & Type Note Facility 02-11-2025 History of Presen t illness Narrative Skin Check Location: Patient requests a skin examination from the waist up Dermatologic history: no history of skin cancer, no history of atypical moles Last visit: 1 year ago since last skin check; was seen 3 months ago for ISKs Lesions Location: neck Duration: months Quality: itchy Modifying factors: aggravated by picking Associated symptoms: rough, raised Treatments: none All pertinent medical history, medications, and allergies were reviewed. General Exam: alert, oriented to person, place, and time, normal affect, well appearing A complete skin exam was offered, pt declined. Areas not examined despite medical recommendation: From the waist down Scalp, Examined Head, Face Examined Neck Examined Chest Examined Back Examined Abdomen Examined Right arm Examined Left arm Examined Hands Examined Digits,nails: Examined Lymphatics: Not examined Skin Exam 1. MELANOCYTIC NEVUS OF TRUNK Generalized Scattered benign appearing, regular brown to light brown melanocytic papules and macules with similar morphology Counseled regarding these benign growths. Rarely, a nevus can develop into malignant melanoma, so any changing nevi should be promptly re-evaluated. 2. SEBORRHEIC KERATOSIS Generalized Stuck on verrucous, variably pigmented papules and plaques. Patient was counseled regarding these benign growths. Removal is normally not necessary, but they may be removed if they are symptomatic or for cosmetic reasons. 3. INFLAMED SEBORRHEIC KERATOSIS (14) Neck - Anterior (14) Inflamed seborrheic keratoses: pink and brown stuck on verrucous scaly papules with surrounding erythema and bloody crust. The patient was informed that symptomatic seborrheic keratoses are benign growths that become inflamed, itchy, tender, traumatized, caught on clothing, or bleed. Symptomatic lesions can be treated with cryotherapy or curretage. Thicker lesions treated with cryotherapy may require more than one treatment. The patient was instructed to notify the office if abnormal redness or tenderness develops at the treatment site. Cryotherapy today, see procedure note. Diagnosis: Inflamed seborrheic keratosis Indication: Inflamed Consent: Verbal consent was obtained and risks were discussed, including, but not limited to risks of scarring, darker or novelties sales representative pigmentary changes, recurrence, incomplete removal and infection. Method: Liquid nitrogen was used to treat the lesion(s) with two 5-10 second freeze-thaw cycles Number of lesions treated: 14 Post-procedure instructions: Instructions were given orally and in writing. The office will be contacted if the lesion fails to resolve despite treatment, or if a side effect develops such as abnormal crusting, scabbing, redness or tenderness Cryotherapy, skin lesion - Neck - Anterior (14) Next Visit: 1 year documented in this encounter [facility] 01-17-2025 Telephone encounter Note Form atting of this note might be different from the original. Called patient to discuss esophageal bx results. Eosinophils continue to be elevated on twice daily pantoprazole. Pt does not typically eat breakfast. Educated on prior timing of PPI. Will stop pantoprazole and start omeprazole 40 mg twice daily. Educated on proper timing. Repeat EGD in 12 weeks, follow up appointment with me 1 week after EGD. Jaclyn Stewart APRN.CNP [facility] 01-17-2025 Miscellaneous Notes Formattin g of this note might be different from the original. Called patient to discuss esophageal bx results. Eosinophils continue to be elevated on twice daily pantoprazole. Pt does not typically eat breakfast. Educated on prior timing of PPI. Will stop pantoprazole and start omeprazole 40 mg twice daily. Educated on proper timing. Repeat EGD in 12 weeks, follow up appointment with me 1 week after EGD. Jaclyn Stewart APRN.CNP documented in this encounter [facility] 01-16-2025 Evaluation note Diagnosis Onset Date Resolution Asthma acute January 16, 2025 11:01am BMI 39.0-39.9,adult acute January 16, 2025 11:01am Hyperlipemia acute Jayde 2nd, 20 25 11:01am Hypothyroid acute January 16 11:01am Post-menopausal acute January 16, 2025 11:01am Screening for breast cancer acute January 16, 2025 11:01am Screening for osteoporosis acute January 16, 2025 11:01am Encounter for subsequent annual wellness visit in Medicare patient noneactive January 16, 2025 11:01am Dysphagia acute January 28 11:05am GERD (gastroesophageal reflux disease) acute January 28, 2025 11:05am [facility] Work Phone: 1(451) 560-499006-26-2025 Nurse Note* Arben Desouza RN - 01/10/2025 2:03 PM EDT AMBULATORY PATIENT EDUCATION NOTE TOPIC: GI PROCEDURES: Esophagogastroduodenoscopy(EGD) with or without biopies based on clinical findings, removal of polyps or lesions READINESS TO LEARN INSTRUCTION PROVIDED TO: Patient, readness to learn accessed prior to procedure and Son COGNITIVE ABILITY: Alert and oriented PTED MOTIVATION TO LEARN: Eager Interested FAMILY SUPPORT: High - Very involved in pt care IPATIENT LEARNS BEST BY: Individual Instruction Written Instruction - Hand-outs Verbal Instruction FACTORS AFFECTING LEARNING: None PHYSICAL LIMITATIONS AFFECTING LEARNING: None LEARNING RESPONSE METHOD OF INSTRUCTION: Individual instruction PATIENT / FAMILY RESPONSE: Verbalizes understanding of: WORSENING CONDITION- Signs and symptoms of aworsening condition that warrant a call to the physician FOLLOW-UP PLAN: Complete - No need for follow-up Patient instructed to call with any further issues SUPPLEMENTAL MATERIAL: Procedure Discharge Instructions REFERRAL (RECOMMENDATION): None [facility]06-26-2025 Nurse Note* Arben Desouza RN - 01/10/2025 2:03 PM EDT AMBULATORY PATIENT EDUCATION NOTE TOPIC: GI PROCEDURES: Esophagogastroduodenoscopy(EGD) with or without biopies based on clinical findings, removal of polyps or lesions READINESS TO LEARN INSTRUCTION PROVIDED TO: Patient, readness to learn accessed prior to procedure and Son COGNITIVE ABILITY: Alert and oriented PTED MOTIVATION TO LEARN: Eager Interested FAMILY SUPPORT: High - Very involved in pt care IPATIENT LEARNS BEST BY: Individual Instruction Written Instruction - Hand-outs Verbal Instruction FACTORS AFFECTING LEARNING: None PHYSICAL LIMITATIONS AFFECTING LEARNING: None LEARNING RESPONSE METHOD OF INSTRUCTION: Individual instruction PATIENT / FAMILY RESPONSE: Verbalizes understanding of: WORSENING CONDITION- Signs and symptoms of aworsening condition that warrant a call to the physician FOLLOW-UP PLAN: Complete - No need for follow-up Patient instructed to call with any further issues SUPPLEMENTAL MATERIAL: Procedure Discharge Instructions REFERRAL (RECOMMENDATION): None * Genevieve Jara RN - 01/10/2025 12:09 PM EDT PRE OP LEARNING ASSESSMENT PROCEDURE/SURGERY: GI PROCEDURES: EGD READINESS TO LEARN COGNITIVE ABILITY: Alert and oriented MOTIVATION TO LEARN: Eager FAMILY SUPPORT: Unable to assess - Family not present PATIENT LEARNS BEST BY: Individual Instruction FACTORS AFFECTING LEARNING: None PHYSICAL LIMITATIONS AFFECTING LEARNING: None Electronically Signed By: GENEVIEVE JARA RN In Department: GASTROENTEROLOGY documented in this encounter[facility]* Genevieve Jara RN - 01/10/2025 12:09 PM EDT PRE OP LEARNING ASSESSMENT PROCEDURE/SURGERY: GI PROCEDURES: EGD READINESS TO LEARN COGNITIVE ABILITY: Alert and oriented MOTIVATION TO LEARN: Eager FAMILY SUPPORT: Unable to assess - Family not present PATIENT LEARNS BEST BY: Individual Instruction FACTORS AFFECTING LEARNING: None PHYSICAL LIMITATIONS AFFECTING LEARNING: None Electronically Signed By: GENEVIEVE JARA RN In Department: GASTROENTEROLOGY [facility]06-19-2025 Nurse Note* Awa Lemon RN - 01/03/2025 2:24 PM EDT GI Pre-Procedure Spoke with patient: Yes Confirmed date scheduled and patient report time: Yes Procedure Planned:Esophagogastroduodenoscopy(EGD) for control of bleeding,dilation(any means),imaging,tube placement Is the patient on blood thinners?no Procedure Instructions given to patient: Yes, and they verbalized their understanding of instructions given Patient instructed to have family/friend present for procedure transport home:Patient/patient containers sales representative was told that if they do not have a responsible adult accompany them to their procedure; and remain in the endoscopy area until they are discharged; that their procedure cannot be done with s edation or anesthesia and may be cancelled. and They verbalized their understanding and agree to have a responsible adult accompany the patient to their procedure and remain in the endoscopy area. Any barriers to Patient learning: Patient/Patient Weight Caller responded appropriately on phone. Type of instruction given: Verbal by telephone contact. KATIA Al [facility]06-19-2025 Nurse Note* Awa Lemon RN - 01/03/2025 2:24 PM EDT GI Pre-Procedure Spoke with patient: Yes Confirmed date scheduled and patient report time: Yes Procedure Planned:Esophagogastroduodenoscopy(EGD) for control of bleeding,dilation(any means),imaging,tube placement Is the patient on blood thinners?no Procedure Instructions given to patient: Yes, and they verbalized their understanding of instructions given Patient instructed to have family/friend present for procedure transport home:Patient/patient containers sales representative was told that if they do not have a responsible adult accompany them to their procedure; and remain in the endoscopy area until they are discharged; that their procedure cannot be done with s edation or anesthesia and may be cancelled. and They verbalized their understanding and agree to have a responsible adult accompany the patient to their procedure and remain in the endoscopy area. Any barriers to Patient learning: Patient/Patient Weight Caller responded appropriately on phone. Type of instruction given: Verbal by telephone contact. KATIA Al documented in this [facility] History of Present illness Narrative* Fatuma Phipps, RECRUITER ACCOUNT MANAGER-INTERIOR DECORATOR - 10/18/2024 1:20 PM EDT Follow up Diagnosis: ISK's Location: generalized Last visit: 1 month ago Symptoms: itchy, rubs on clothing Status: getting smaller Current treatment: Patient is here for Cryotherapy today. All pertinent medical history, medications, and allergies were reviewed. General Exam: alert, oriented to person, place, and time, normal affect, well appearing Unaccompanied A focused exam completed based on patient reported problems, see below: 1. Inflamed seborrheic keratosis (14) Left Breast (2), Left Lower Back, Neck - Anterior (11) Inflamed seborrheic keratoses: pink and brown stuck on verrucous scaly papule with surrounding erythema and bloody crust. The patient was informed that symptomatic seborrheic keratoses are benign growths that become inflamed, itchy, tender, traumatized, caught on clothing, or bleed. Symptomatic lesions can be treated with cryotherapy or curretage. Thicker lesions treated with cryotherapy may require more than one treatment. The patient was instructed to notify the office if abnormal redness or tenderness develops atthe treatment site. Cryotherapy today, see procedure note. Diagnosis: Inflamed seborrheic keratosis Indication: Inflamed Consent: Verbal consent was obtained and risks were discussed, including, but not limited to risks of scarring, darker or novelties sales representative pigmentary changes, recurrence, incomplete removal and infection. Method: Liquid nitrogen was used to treat the lesion(s) with two 5-10 second freeze-thaw cycles Number of lesions treated: 14 Post-procedure instructions: Instructions were given orally and in writing. The office will be contacted if the lesion fails to resolve despite treatment, or if a side effect develops such as abnormal crusting, scabbing, redness or tenderness Cryotherapy, skin lesion - Left Breast (2), Left Lower Back, Neck - Anterior (11) Next Visit: 4 weeks, follow up ISKs documented in this encounterThree Rivers [id number] Evaluation note* Diagnosis Onset Date Resolution Status Admit Date Dysphagia acute October 18 10:44am GERD (gastroesophageal reflu x disease) acute October 18, 2024 10:44am Schatzki's ring acute October 10:44am Squamous papilloma acute October 18, 2024 10:44am Encounter for subsequent annual wellness visit in Medicare patient noneactive January 16, 2025 11:01am [facility] Work Phone: [phone]) 631-667304-01-2025 Instructions* Patient Instructions* Jaclyn Stewart APRN.CNP - 10/16/2024 1:44 PM EDT -take first dose of pantoprazole as you have been, take second dose a half hour to an hour before dinner. -schedule EGD at [facility] [place] to be done in 8-12 weeks, to reschedule [phone] option 0. Must have show horse driver. documented in this encounterB[facility] NoteHNO ID: [id number] Author: JACLYN STEWART APRN.CNP Service: ? Author Type: Nurse Practitioner Type: Progress Notes Filed: 10/18/2024 14:34 Note Text: New Patient/Consult REASON FOR VISIT Tarah Briseno is a 74 year old female who is scheduled for eosinophilic esophagitis at the consult request of self. My final recommendations will be communicated back to the requesting physician by the way of the shared medical record, fax, or via US Mail. PRESENTING COMPLAINT AND HISTORY Mrs. Briseno is a 74 year old female with a past medical history of but not limited to fibromyalgia, hypothyroidism, and hyperlipidemia. Presenting today with family member with the following chief complaint: Patient underwent EGD at [facility], 2 cm esophageal lesion was noted 33 cm from the incisors. Bx confirm inflammatory lesion and eosinophilic esophagitis. Presenting to [facility] for further management/second opinion. Patient reports dysphagia symptoms started awhile ago, one incident food got stuck and she had a hard time getting it to go down, prompting visit to local GI. Since EGD locally has been taking twice daily pantoprazole 40 mg, by at least an hour from levothyroxine. Does patient have achalasia? No GI EVALUATION Reviewed EGD 10/03/24 at [facility] Folds and furrows circumferential esophagus, 2 cm lesion at 33 cm from incisors BX results lesion fragments of squamous papilloma, inflamed no malignancy. Active esophagitis with prominent eosinophils 15-20 per high power field. ADVIL 100MG TABLET take 4 pills 4 times daily Iodine, Other, and Other FAMILY HISTORY Colon Cancer: No Other Cancers: Yes No family history on file. No past medical history on file. No past surgical history on file. REVIEW OF SYSTEMS ROS otherwise negative except per HPI PHYSICAL EXAMINATION There were no vitals taken for this visit. General - Normal, healthy, cooperative, in no acute distress Able to interact well. Psych - ORIENTATION: normal to time place, person and situation Mood/Affect: AFFECT AND MOOD: Normal Head/Neuro - Normal size and shape Facial appearance normal Pulmonary - respiratory effort normal Extremities- extremities normal, warm, no cyanosis,no clubbing, and no edema Skin - abnormal lesions not visualized Motor - patient seen sitting with Normal appearing strength and coordination Assessment Impression and Plan ASSESSMENT/PLAN: 1. Eosinophilic esophagitis - ICD9: 530.13, ICD10: K20.0 (primary diagnosis) Recently diagnosed with EOE after esophageal bx reveal greater than 15 eosinophils per high power field. Pt taking pantoprazole 40 mg twice daily. Repeat EGD in 8-12 weeks at [facility] with distal and proximal esophageal bx. - EGD - THERAPEUTIC, EUS, OR TUBE INTERVENTIONS - EGD - THERAPEUTIC, EUS, OR TUBE INTERVENTIONS 2. Esophageal lesion - ICD9: 530.9, ICD10: K22.9 2 cm lesion 33 cm from the incisors was found on local EGD, bx reveal inflammatory, no malignancy. Will reassess lesion with bx during repeat EGD at [facility]. - EGD - THERAPEUTIC, EUS, OR TUBE INTERVENTIONS - EGD - THERAPEUTIC, EUS, OR TUBE INTERVENTIONS Jaclyn Stewart APRN.GERMAINE I spent a total of 45 minutes on the date of the service which included preparing to see the patient, [id number] patient care, completing clinical documentation, obtaining and/or reviewing separately obtained history, performing a medically appropriate examination, counseling and educating the patient/family/caregiver, ordering medications, tests, or procedures, communicating with other HCPs (not separately reported), independently interpreting results (not separately reported), communicating results to the patient/family/caregiver, and care coordination (not separately reported). Jaclyn Stewart APRN.GERMAINE October 16, 2024 1:23 [facility]04-01-2025 History of Present illness Narrative * Jaclyn Stewart APRN.INTERIOR DECORATOR - 10/16/2024 1:23 PM EDT Images from the original note were not included. New Patient/Consult REASON FOR VISIT Tarah Briseno is a 74 year old female who is scheduled for eosinophilic esophagitis at the consult request of self. My final recommendations will be communicated back to the requesting physician by the way of the shared medical record, fax, or via US Mail. PRESENTING COMPLAINT & HISTORY Mrs. Briseno is a 74 year old female with a past medical history of but not limited to fibromyalgia, hypothyroidism, and hyperlipidemia. Presenting today with family member with the following chiefcomplaint: Patient underwent EGD at [facility], 2 cm esophageal lesion was noted 33 cm from the incisors. Bx confirm inflammatory lesion and eosinophilic esophagitis. Presenting to [facility] for further management/second opinion. Patient reports dysphagia symptoms started awhile ago, one incident food got stuck and she had a hard time getting it to go down, prompting visit to local GI. Since EGD locally has been taking twice daily pantoprazole 40 mg, by at least an hour from levothyroxine. Does patient have achalasia? No GI EVALUATION Reviewed EGD 10/03/24 at [facility] Folds and furrows circumferential esophagus, 2 cm lesion at 33 cm from incisors BX results lesion fragments of squamous papilloma, inflamed no malignancy. Active esophagitis with prominent eosinophils 15-20 per high power field. ADVIL 100MG TABLET take 4 pills 4 times daily Iodine, Other, and Other FAMILY HISTORY Colon Cancer: No Other Cancers: Yes No family history on file. No past medical history on file. No past surgical history on file. REVIEW OF SYSTEMS ROS otherwise negative except per HPI PHYSICAL EXAMINATION There were no vitals taken for this visit. General - Normal, healthy, cooperative, in no acute distress Able to interact well. Psych - ORIENTATION: normal to time place, person and situation Mood/Affect: AFFECT AND MOOD: Normal Head/Neuro - Normal size and shape Facial appearance normal Pulmonary - respiratory effort normal Extremities- extremities normal, warm, no cyanosis,no clubbing, and no edema Skin - abnormal lesions not visualized Motor - patient seen sitting with Normal appearing strength and coordination Assessment Impression and Plan ASSESSMENT/PLAN: 1. Eosinophilic esophagitis - ICD9: 530.13, ICD10: K20.0 (primary diagnosis) Recently diagnosed with EOE after esophageal bx reveal greater than 15 eosinophils per high power field. Pt taking pantoprazole 40 mg twice daily. Repeat EGD in 8-12 weeks at [facility] with distal and proximal esophageal bx. - EGD - THERAPEUTIC, EUS, OR TUBE INTERVENTIONS - EGD - THERAPEUTIC, EUS, OR TUBE INTERVENTIONS 2. Esophageal lesion - ICD9: 530.9, ICD10: K22.9 2 cm lesion 33 cm from the incisors was found on local EGD, bx reveal inflammatory, no malignancy. Will reassess lesion with bx during repeat EGD at [facility]. - EGD - THERAPEUTIC, EUS, OR TUBE INTERVENTIONS - EGD - THERAPEUTIC, EUS, OR TUBE INTERVENTIONS Jaclyn Stewart APRN.GREMAINE I spent a total of 45 minutes on the date of the service which included preparing to see the patient, [id number] patient care, completing clinical documentation, obtaining and/or reviewing separately obtained history, performing a medically appropriate examination, counseling and educating the pat ient/family/caregiver, ordering medications, tests, or procedures, communicating with other HCPs (not separately reported), independently interpreting results (not separately reported), communicatingresults to the patient/family/caregiver, and care coordination (not separately reported). Jaclyn Stewart APRN.CNP October 16, 2024 1:23 PM documented in this encounterBrec[facility]ville [facility] NoteHNO ID: [id number] Author: BLANCA DESOUZA RN Service: ? Author Type: Registered Nurse Type: Progress Notes Filed: 10/16/2024 08:43 Note Text: New Patient/Consult REASON FOR VISIT Tarah Briseno is a 74 year old female who is scheduled for esophageal tumor at the consult request of . EGD 10/03/2024[facility]03-31-2025 History of Present illness Narrative* Blanca Desouza RN - 10/15/2024 11:06 AM EDT Images from the original note were not included. New Patient/Consult REASON FOR VISIT Tarah Briseno is a 74 year old female who is scheduled for esophageal tumor at the consult request of . EGD 10/03/2024 documented in this encounterBrecksville [facility] [place] [address] Gastroenterology H&P Signed Patient: Tarah Briseno MR#: [id number] : 1950 Acct:[id number] Age/Sex: 74 / F Adm Date: 5 Loc: Room: Type: [facility] Attending Dr: Alicia Wilks MD Copies to: MD Jacqueline Sears APRN, GERMAINE~ Date of Service: 10/03/2024 HISTORY & PHYSICAL: Patient's history with special attention to the cardiovascular, pulmonary systems and the current problem was reviewed with the patient immediately prior to the procedure. Present medications and doses reviewed in the EMR. Allergies and pertinent laboratory tests were also re viewedat this time in the EMR. The physical examination, as below, was then performed. Indication, assessment and HPI: 74-year-old female here for EGD for evaluation of dysphagia Family history of GI malignancy? No PHYSICAL EXAMINATION General appearance: NAD Skin: No jaundice Head: NC/AT Eyes: Anicteric Neck: Supple Lungs: Normal respiratory effort, no use of accessory muscles Abdomen: nondistended Neuro: Ox3. REVIEW OF SYSTEMS Constitutional: Denies malaise, fevers Cardiovascular: Denies chest pain, palpitations Respiratory: Denies shortness of breath, wheezing Gastrointestinal: As per HPI Genitourinary: Denies dysuria, polyuria Musculoskeletal: Denies joint swelling, joint stiffness Neurological: Denies confusion, numbness, tingling Endocrine: Denies fatigue Written informed consent obtained from the patient. Risks (including but not limited to perforation, infection, bloating, bleeding, need for emergent surgeryand loss of life), benefits and alternatives explained and questions answered. The patient verbalized understanding. Based on history patient is an appropriate candidate for the procedure. Alicia Wilks M.D. Documented By: Alicia Wilks MD 10/03/24 1135 Signed By: 10/03/24 1135 [facility]03-19-2025 Procedure note[place] [id number] EGD Procedure Note Signed Patient: Tarah Briseno MR#: [id number] : 1950 Acct:[id number] Age/Sex: 74 / F Adm Date: 5 Loc: Room: Type: [facility] Attending Dr: Alicia Wilks MD Copies to: MD Jacqueline Sears APRN, GERMAINE~ Esophagogastroduodenoscopy Date/Provider Date: 10/03/2024 Alicia Wilks MD Procedure Findings: Procedure: EGD with biopsy Indication: 74-year-old female here for EGD for evaluation of dysphagia Pre-operative diagnosis: Dysphagia Post-operative diagnosis: LA grade B esophagitis, esophageal stricture, hiatal hernia, esophageal lesion/mass, circumferential folds with furrows noted throughout the esophagus suggestive of EOE Sedation: propofol per anesthesia dept O2 oximetry, hemodynamic monitoring was performed pre, during, and post procedure. Patient was identified, H&P completed, patient was given full explanation of the procedure as well as associatedrisks and written consent wasobtained prior to procedure. Patient expressed complete understanding of the procedure as well as alternatives to the procedure and to anesthesia and agreed to proceed with the procedure as indicated. Patient was immediately reassessed prior to IV sedation. Following IV sedation, patient was placed in the left lateral decubitus position. Bite block was inserted. Endoscope was passed through the mouth, into the esophagus. Endoscope was advanced into the stomach through the pyloricchannel and into the 2nd portion of duodenum by direct visualization. Endoscopewas withdrawn into the stomach and retroflexion was performed. The endoscope was straightened,the stomach was decompressed. Endoscope was withdrawn into the esophagus then completely removed with the findings as below. Findings: DUODENUM: bulb and descending portion appeared normal. STOMACH: pyloric channel, antrum, body, fundus and cardia, including retroflexedviews appear normal. ESOPHAGUS: LA grade B esophagitis. Esophageal stricture noted at 36 cm from theincisors. A 2 cm hernia noted between 36 and 38 cm from the incisors. A 2 cm lesion/mass noted at 33 cm from the incisors, biopsied using biopsy forceps. circumferential folds with furrows noted throughout the esophagus suggestive of eosinophilic esophagitis, biopsies were done from the distal esophagus and proximal esophagus to assess for eosinophilic esophagitis Biopsy taken: Yes Complications: None EBL: Minimal Recommendations: -Start pantoprazole 40 mg twice daily -Follow-up pathology then determine further workup Following a period of recovery, patient was seen and given full explanation of the procedure. Patient tolerated the procedure well and will be discharged in satisfactory, stable condition. Alicia Wilks M.D. Documented By: Alicia Wilks MD 10/03/24 1136 Signed By: 10/03/24 1140 [facility]02-26-2025 History of Present illness Narrative * Fatuma Phipps, RECRUITER ACCOUNT MANAGER-INTERIOR DECORATOR - 09/12/2024 1:10 PM EST Follow up Diagnosis: ISK's Location: inframammary area, neck Last visit: 1 month ago Symptoms: itchy, rubs on clothing Current treatment: cryotherapy in the past helped similar lesions All pertinent medical history, medications, and allergies were reviewed. General Exam: alert, oriented to person, place, and time, normal affect, well appearing Unaccompanied A focused exam completed based on patient reported problems, see below: 1. Inflamed seborrheic keratosis (14) Anterior Mid Neck, Left Abdomen (side) - Upper (2), Left Anterior Neck (3), Left Flank (3), Right Anterior Neck (5) Inflamed seborrheic keratoses: pink and brown stuck on verrucous scaly papule with surrounding erythema and bloody crust. The patient was informed that symptomatic seborrheic keratoses are benign growths that become inflamed, itchy, tender, traumatized, caught on clothing, or bleed. Symptomatic lesions can be treated with cryotherapy or curretage. Thicker lesions treated with cryotherapy may require more than one treatment. The patient was instructed to notify the office if abnormal redness or tenderness develops atthe treatment site. Cryotherapy today, see procedure note. Diagnosis: Inflamed seborrheic keratosis Indication: Inflamed Consent: Verbal consent was obtained and risks were discussed, including, but not limited to risks of scarring, darker or novelties sales representative pigmentary changes, recurrence, incomplete removal and infection. Method: Liquid nitrogen was used to treat the lesion(s) with two 5-10 second freeze-thaw cycles Number of lesions treated: 14 Post-procedure instructions: Instructions were given orally and in writing. The office will be contacted if the lesion fails to resolve despite treatment, or if a side effect develops such as abnormal crusting, scabbing, redness or tenderness Cryotherapy, skin lesion - Anterior Mid Neck, Left Abdomen (side) - Upper (2), Left Anterior Neck (3), Left Flank (3), Right Anterior Neck (5) Next Visit: 4 weeks documented in this encounterThree Rivers [id number] History of Present illness Narrative* CITLALY Alcaraz - 2024 9:40 AM EST Lesions: Location: Inframammary, breasts,left flank, and right shoulder Duration: Years Quality: Very, very itchy Modifying factors: Rubs on clothing Associated symptoms: Rough brown spots Treatments: None Established patient All pertinent medical history, medications, and allergies were reviewed. General Exam: alert, oriented to person, place, and time, normal affect, well appearing A focused exam completed based on patient reported problems, see below: 1. Inflamed seborrheic keratosis (12) Left Abdomen (side) - Upper (6), Left Breast, Left Flank (2), Left Inframammary Fold (2), Right Shoulder - Anterior Inflamed seborrheic keratoses: pink and brown stuck on verrucous scaly papule with surrounding erythema and bloody crust. The patient was informed that symptomatic seborrheic keratoses are benign growths that become inflamed, itchy, tender, traumatized, caught on clothing, or bleed. Symptomatic lesions can be treated with cryotherapy or curretage. Thicker lesions treated with cryotherapy may require more than one treatment. The patient was instructed to notify the office if abnormal redness or tenderness develops atthe treatment site. Cryotherapy today, see procedure note. Diagnosis: Inflamed seborrheic keratosis Indication: Inflamed Consent: Verbal consent was obtained and risks were discussed, including, but not limited to risks of scarring, darker or novelties sales representative pigmentary changes, recurrence, incomplete removal and infection. Method: Liquid nitrogen was used to treat the lesion(s) with two 5-10 second freeze-thaw cycles Number of lesions treated: 12 Post-procedure instructions: Instructions were given orally and in writing. The office will be contacted if the lesion fails to resolve despite treatment, or if a side effect develops such as abnormal crusting, scabbing, redness or tenderness Cryotherapy, skin lesion - Left Abdomen (side) - Upper (6), Left Breast, Left Flank (2), Left Inframammary Fold (2), Right Shoulder - Anterior Next Visit: 1 month, follow up ISKs documented in [facility]Three [id number] Evaluation note* Diagnosis Onset Date Resolution Status Admit Date Atypical chest pain acute 2024 11:29am Dysphagia acute August 07, 2024 11:29am GERD (gastroesophageal reflu x disease) acute August 07 11:29am Atypical chest pain acute 2024 10:36am Dysphagia acute September 06, 2024 10:36am GERD (gastroesophageal reflu x disease) acute September 06 025 10:36am Schatzki's ring acute September 06, 2024 10:36am [facility] Work Phone: 1(558) 448-775201-21-2025 Evaluation note* Diagnosis Onset Date Resolution Status Admit Date Atypical chest pain acute 2024 11:29am Dysphagia acute August 07, 2024 11:29am GERD (gastroesophageal reflu x disease) acute August 07 11:29am Atypical chest pain acute 2024 10:36am Dysphagia acute September 06, 2024 10:36am GERD (gastroesophageal reflu x disease) acute September 06 025 10:36am Schatzki's ring acute September 06, 2024 10:36am Dysphagia acute October 18 10:44am GERD (gastroesophageal reflu x disease) acute October 18, 2024 10:44am Schatzki's ring acute October 10:44am [facility] Work Phone: 1(996) 831-962711-26-2024 Evaluation note* Diagnosis Onset Date Resolution Status Admit Date GERD (gastroesophageal reflu x disease) acute June 12, 2 024 3:00pm Dysphagia acute August 07, 2024 11:29am [facility] Work Phone: 1(375) 660-642611-26-2024 Evaluation note* Diagnosis Onset Date Resolution Status Admit Date GERD (gastroesophageal reflu x disease) acute June 12, 2 024 3:00pm Atypical chest pain acute 2024 11:29am Dysphagia acute August 07, 2024 11:29am GERD (gastroesophageal reflu x disease) acute August 07 11:29am Dysphagia acute September 06, 2024 10:36am [facility] Work Phone: 1(221) 182-694911-26-2024 Hospital Discharge instructions Patient Education 06/12/2024 11:13:21 Urinary Incontinence Urinary Incontinence Urinary incontinence refers to a condition in which a person is unable to control where and when topass urine. A person with this condition will urinate involuntarily. This means that the person urinates when he or she does not mean to. What are the causes? This condition may be caused by: Medicines. Infections. Constipation. Overactive bladder muscles. Weak bladder muscles. Weak pelvic floor muscles. These muscles provide support for the bladder, intestine, and, in women,the uterus. Enlarged prostate in men. The prostate [...] a small amount, or constantly dribbling urine (overflowincontinence). Urinating because you cannot get to the [...] fiber include beans, whole grains, and fresh fruitsand vegetables. Behavioral changes, such as: ?Pelvic floor [...] (electrical nerve stimulation). ?For women, using a medical affairs leader to prevent urine leaks. This is a small, tampon-like, disposabledevice that is inserted into the urethra. ?Injecting [...] right after experiencing incontinence. General instructions Take qzdi-eeh-niideez and prescription medicines only as told by [...] important. Where to find more information National [place] [employer] of Diabetes and Digestive and Kidney Diseases: www.niddk.nih.gov Citizen Of [place] Urology Association: www.urologyhealth.org Contact a health care [...] is unable to control where and when topass urine. This condition may be caused by medicines, infection, weak bladder muscles, weak pelvic floor muscles, enlargement of the prostate (in men), or surgery. Factors such as older age, obesity, and childbirth, menopause, neurological diseases, andchronic coughing may increase your risk for developing [...] provider. Document Revised: 02/06/2021 Document Reviewed: 02/06/2021 [employer] Patient Education 2023 [employer]. Follow Up Care 04/09/2024 13:43:38 With:[facility] Address: When: Unknown Comments:Only if needed/new problems arise. No scheduled appointment indicated at this time. [facility] 11-26-2024 NotePatient Education Urology Urinary Incontinence Urinary incontinence refers to a condition in which a person is unable to control where and when topass urine. A person with this condition will urinate involuntarily. This means that the person urinates when he or she does not mean to. What are the causes? This condition may be caused by: ??? Medicines. ??? Infections. ??? Constipation. ??? Overactive bladder muscles. ??? Weak bladder muscles. ??? Weak pelvic floor muscles. These muscles provide support for the bladder, intestine, and, in women, the uterus. ??? Enlarged prostate in men. The prostate is a gland near the bladder. When it gets too big, it can pinch the urethra. With the urethra blocked, the bladder can weaken and lose the ability to empty properly. ??? Surgery. ??? Emotional factors, such as anxiety, stress, or post-traumatic stress disorder (PTSD). ??? Spinal cord injury, nerve injury, or other neurological conditions. ??? Pelvic organ prolapse. This happens in women when organs move out of place and into the vagina.This movement can prevent the bladder and urethra from working properly. What increases the risk? The following factors may make you more likely to develop this condition: ??? Age. The older you are, the higher the risk. ??? Obesity. ??? Being physically inactive. ??? and childbirth. ??? Menopause. ??? Diseases that affect the nerves or spinal cord. ??? Long-term, or chronic, coughing. This can increase pressure on the bladder and pelvic floor muscles. What are the signs or symptoms? Symptoms may vary depending on the type of urinary incontinence you have. They include: ??? A sudden urge to urinate, and passing urine involuntarily before you can get to a bathroom (urge incontinence). ??? Suddenly passing urine when doing activities that force urine to pass, such as coughing, laughing, exercising, or sneezing (stress incontinence). ??? Needing to urinate often but urinating only a small amount, or constantly dribbling urine (overflow incontinence). ??? Urinating because you cannot get to the bathroom in time due to a physical disability, such as arthritis or injury, or due to a communication or thinking problem, such as Alzheimer's disease (functional incontinence). How is this diagnosed? This condition may be diagnosed based on: ??? Your medical history. ??? A physical exam. ??? Tests, such as: ? Urine tests. ? X-rays of your kidney and bladder. ? Ultrasound. ? CT scan. ? Cystoscopy. In this procedure, a health care provider inserts a tube with a light and camera (cystoscope) through the urethra and into the bladder to check for problems. ? Urodynamic testing. These tests assess how well the bladder, urethra, and sphincter can store andrelease urine. There are different types of urodynamic [...] have and its cause. Treatment may include: ??? Lifestyle changes, such as: ? Quitting smoking. ? Maintaining a healthy weight. ? Staying active. Try to get 150 minutes of moderate-intensity exercise every week. Ask your healthcare provider which activities are safe for you. ? Eating a healthy diet. ? Avoid high-fat foods, like fried foods. ? Avoid refined carbohydrates like white bread and white rice. ? Limit how much alcohol and caffeine you drink. ? Increase your fiber intake. Healthy sources of fiber include beans, whole grains, and fresh fruits and vegetables. ??? Behavioral changes, such as: ? Pelvic floor muscle exercises. ? Bladder training, such as lengthening the amount of time between bathroom breaks, or using the bathroom at regular intervals. ? Using techniques to suppress bladder urges. This can include distraction techniques or controlledbreathing exercises. ??? Medicines, such as: ? Medicines to relax the bladder muscles and prevent bladder spasms. ? Medicines to help slow or prevent the growth of a man's prostate. ? Botox injections. These can help relax the bladder muscles. ??? Treatments, such as: ? Using pulses of electricity to help change bladder reflexes (electrical nerve stimulation). ? For women, using a medical affairs leader to prevent urine leaks. This is a small, tampon-like, disposable device that is inserted into the urethra. ? Injecting collagen or carbon beads (bulking agents) into the urinary sphincter. These can help thicken tissue and close the bladder opening. ? Surgery. Follow these instructions at home: Lifestyle ??? Limit alcohol and caffeine. These can fill your bladder quickly and irritate it. ??? Keep yourself clean to help prevent odors and skin damage. Ask your health care provider (more content not included)...[facility] 04-09-2024 Hospital Discharge instructions Patient Education 04/09/2024 13:21:50 EU - Cystoscopy with Botox Injection Discharge Instructions (Custom) Cystoscopy with Botox injection Voiding after the procedure: there may be some pain, burning, urgency, frequency and blood tinged urine following the procedure. These symptoms usually resolve within 2-5 days. Drink the amount of fluid it takes to keep the urine pink to yellow or clear in color. Drinking enough water and fluids will help to ease any discomfort after your procedure. It may take a few days to a week to notice a gradual improvement in the overactive bladder symptoms. If you are having problems that seem out of the ordinary, please call. If unable to contact your physician and you feel it is an emergency, go to the nearest emergency room or call 911 Do not lift more than fifteen pounds for 1-2 days. If you see a lot of blood, you probably did too much. Diet you may resume your normal diet. Pain control You may take extra strength Tylenol or Motrin for discomfort. Call if you have a fever over 100 degrees. Follow Up Care 02/15/2024 13:54:28 With:Antonio AMBRIZ Address: [address] [place] [address] [address] [place] [address]- Business (1) When: Unknown Comments:Please make a follow up appointment with one of our nurse practitioners or physician assistants within two months with a bladder scan to assess your bladder emptying. Have a great day! [facility] 09-23-2024 NotePatient Education Cystoscopy with Botox injection ? Voiding after the procedure: there may be some pain, burning, urgency, frequency and blood tingedurine following the procedure. These symptoms usually resolve within 2-5 days. Drink the amount of fluid it takes to keep the urine pink to yellow or clear in color. Drinking enough water and fluids will help to ease any discomfort after your procedure. ? It may take a few days to a week to notice a gradual improvement in the overactive bladder symptoms. ? If you are having problems that seem out of the ordinary, please call. ? If unable to contact your physician and you feel it is an emergency, go to the nearest emergency room or call 911 ? Do not lift more than fifteen pounds for 1-2 days. If you see a lot of blood, you probably did too much. ? Diet ? you may resume your normal diet. ? Pain control ? You may take extra strength Tylenol or Motrin for discomfort. ? Call if you have a fever over 100 degrees.[facility] 02-15-2024 Hospital Discharge instructions Patient Education 02/15/2024 13:25:41 Urinary Incontinence Urinary Incontinence Urinary incontinence refers to a condition in which a person is unable to control where and when topass urine. A person with this condition will urinate involuntarily. This means that the person urinates when he or she does not mean to. What are the causes? This condition may be caused by: Medicines. Infections. Constipation. Overactive bladder muscles. Weak bladder muscles. Weak pelvic floor muscles. These muscles provide support for the bladder, intestine, and, in women,the uterus. Enlarged prostate in men. The prostate [...] a small amount, or constantly dribbling urine (overflowincontinence). Urinating because you cannot get to the [...] fiber include beans, whole grains, and fresh fruitsand vegetables. Behavioral changes, such as: ?Pelvic floor [...] (electrical nerve stimulation). ?For women, using a medical affairs leader to prevent urine leaks. This is a small, tampon-like, disposabledevice that is inserted into the urethra. ?Injecting [...] right after experiencing incontinence. General instructions Take wwmi-kak-gvhjhdv and prescription medicines only as told by [...] important. Where to find more information National [place] [employer] of Diabetes and Digestive and Kidney Diseases: www.niddk.nih.gov Citizen Of [place] Urology Association: www.urologyhealth.org Contact a health care [...] is unable to control where and when topass urine. This condition may be caused by medicines, infection, weak bladder muscles, weak pelvic floor muscles, enlargement of the prostate (in men), or surgery. Factors such as older age, obesity, and childbirth, menopause, neurological diseases, andchronic coughing may increase your risk for developing [...] provider. Document Revised: 02/06/2021 Document Reviewed: 02/06/2021 [employer] Patient Education 2022 [employer]. 02/15/2024 13:25:40 Overactive Bladder, Adult Overactive Bladder, Adult Overactive [...] You may also have very sensitive muscles thatmake your bladder squeeze too soon. This condition [...] your health care provider. General instructions Take txsj-sjz-zpwyflg and prescription medicines only as told by your health care provider. If you were prescribed an antibiotic medicine, take it as told by your health care provider. Do notstop taking the antibiotic even if you start [...] provider. Document Revised: 03/23/2021 Document Reviewed: 03/23/2021 [employer] Patient Education 2022 [employer] Follow Up Care 07/27/2023 11:24:53 With:MADELIN CORDOBA, Antonio Alonzo, URL Address: [address] [address]- When: Unknown Comments:Juanita Carreon [facility] 07-31-2024 NotePatient Education Obstetrics and Gynecology Overactive Bladder, Adult Overactive bladder is a [...] You may also have very sensitive muscles thatmake your bladder squeeze too soon. This condition [...] as stroke, dementia, Parkinson's disease, or multiple sclerosis(MS). ? Eat or drink alcohol, spicy food, [...] health care provider. General instructions ? Take gxll-edj-ujacmox and prescription medicines only as told by [...] urinate. This will help your health care (more content not included)...[facility]01-10-2024 Hospital Discharge instructions Patient Education 07/27/2023 11:17:05 Urinary Incontinence Urinary Incontinence Urinary incontinence refers to a condition in which a person is unable to control where and when topass urine. A person with this condition will urinate involuntarily. This means that the person urinates when he or she does not mean to. What are the causes? This condition may be caused by: Medicines. Infections. Constipation. Overactive bladder muscles. Weak bladder muscles. Weak pelvic floor muscles. These muscles provide support for the bladder, intestine, and, in women,the uterus. Enlarged prostate in men. The prostate [...] a small amount, or constantly dribbling urine (overflowincontinence). Urinating because you cannot get to the [...] fiber include beans, whole grains, and fresh fruitsand vegetables. Behavioral changes, such as: ?Pelvic floor [...] (electrical nerve stimulation). ?For women, using a medical affairs leader to prevent urine leaks. This is a small, tampon-like, disposabledevice that is inserted into the urethra. ?Injecting [...] right after experiencing incontinence. General instructions Take zhkt-kqn-zluimrr and prescription medicines only as told by [...] important. Where to find more information National [place] [employer] of Diabetes and Digestive and Kidney Diseases: www.niddk.nih.gov Citizen Of [place] Urology Association: www.urologyhealth.org Contact a health care [...] is unable to control where and when topass urine. This condition may be caused by medicines, infection, weak bladder muscles, weak pelvic floor muscles, enlargement of the prostate (in men), or surgery. Factors such as older age, obesity, and childbirth, menopause, neurological diseases, andchronic coughing may increase your risk for developing [...] provider. Document Revised: 02/06/2021 Document Reviewed: 02/06/2021 [employer] Patient Education 2022 [employer] Follow Up Care 01/11/2023 10:33:06 With:MADELIN CORDOBA, Antonio Alonzo, URL Address: [address] [place] [id number]- When: Unknown [facility] 06-27-2023 Hospital Discharge instructions Patient Education 01/11/2023 10:24:38 Overactive Bladder, [...] You may also have very sensitive muscles thatmake your bladder squeeze too soon. This condition [...] your health care provider. General instructions Take fxed-dev-gvchqxi and prescription medicines only as told by your health care provider. If you were prescribed an antibiotic medicine, take it as told by your health care provider. Do notstop taking the antibiotic even if you start [...] provider. Document Revised: 03/23/2021 Document Reviewed: 03/23/2021 [employer] Patient Education 2022 [employer] Follow Up Care 12/07/2022 09:30:53 With:WOLFGANG CORDOBA, Oh Bradshaw, URL Address: [address] [place] [phone]- [phone] When:Within 6 Month(s) Comments:Dr. Ambriz [facility] 05-23-2023 Hospital Discharge instructions Follow Up Care 12/07/2022 09:39:03 With:Oh GOSS Address: [address] [place] [phone]- Business (1) When:1 week With:Oh GOSS Address: [address] [place] [phone]- Business (1) When: Unknown [facility]01-24-2023 Hospital Discharge instructions Patient Education 08/10/2022 13:07:29 Urinary Incontinence Urinary Incontinence Urinary incontinence refers to a condition in which a person is unable to control where and when topass urine. A person with this condition will urinate when he or she does not mean to (involuntarily). What are the causes? This condition may be caused by: Medicines. Infections. Constipation. Overactive bladder muscles. Weak bladder muscles. Weak pelvic floor muscles. These muscles provide support for the bladder, intestine, and, in women,the uterus. Enlarged prostate in men. The prostate [...] (electrical nerve stimulation). For women, using a medical affairs leader to prevent urine leaks. This is a [...] right after experiencing incontinence. General instructions Take pdma-pwy-wjlchai and prescription medicines only as told by [...] is unable to control where and when topass urine. This condition may be caused by [...] 08/11/2005 Document Revised: 07/14/2018 Document Reviewed: 10/13/2017 [employer] Patient Education 2020 [employer]. Follow Up Care 07/07/2022 12:08:02 With:WOLFGANG CORDOBA, Oh W, URL Address: [address] [place] [address]- When: Unknown [facility] 07-05-2022 Hospital Discharge instructions Patient Education 01/19/2022 10:43:19 Overactive Bladder, [...] You may also have very sensitive muscles thatmake your bladder squeeze too soon. These symptoms [...] fried and sweet foods. General instructions Take fzwt-ypo-uhentwl and prescription medicines only as told by your health care provider. If you were prescribed an antibiotic medicine, take it as told by your health care provider. Do notstop taking the antibiotic even if you start [...] 04/30/2010 Document Revised: 10/25/2019 Document Reviewed: 07/20/2018 [employer] Patient Education 2019 [employer] Follow Up Care 01/06/2021 11:55:31 With:Doe Fermin MD, Vida Diaz, URO Address: [facility] [address], [place] [address]- [phone] When: Unknown [facility] 04-28-2022 Hospital Discharge instructions Patient Education 11/12/2021 12:04:10 Urinary Incontinence Urinary Incontinence Urinary incontinence refers to a condition in which a person is unable to control where and when topass urine. A person with this condition will urinate when he or she does not mean to (involuntarily). What are the causes? This condition may be caused by: Medicines. Infections. Constipation. Overactive bladder muscles. Weak bladder muscles. Weak pelvic floor muscles. These muscles provide support for the bladder, intestine, and, in women,the uterus. Enlarged prostate in men. The prostate [...] (electrical nerve stimulation). For women, using a medical affairs leader to prevent urine leaks. This is a [...] right after experiencing incontinence. General instructions Take rfmt-egk-alrvzrs and prescription medicines only as told by [...] is unable to control where and when topass urine. This condition may be caused by [...] 08/11/2005 Document Revised: 07/14/2018 Document Reviewed: 10/13/2017 [employer] Patient Education 2020 [employer]. 11/12/2021 12:04:09 Overactive Bladder, Adult Overactive Bladder, [...] You may also have very sensitive muscles thatmake your bladder squeeze too soon. These symptoms [...] fried and sweet foods. General instructions Take hsdk-snm-zqtebpw and prescription medicines only as told by your health care provider. If you were prescribed an antibiotic medicine, take it as told by your health care provider. Do notstop taking the antibiotic even if you start [...] 04/30/2010 Document Revised: 10/25/2019 Document Reviewed: 07/20/2018 [employer] Patient Education 2020 [employer]. Follow Up Care 07/09/2021 11:32:05 With:Vida Desouza Jr., MD, URO Address: [phone] When:01/12/2022 [facility] Evaluation + Plan note Future Appointments Appointment Date:01/19/2022 09:15:00 AM Scheduled Provider:Vida Desouza Jr., MD Location:[facility] Appointment Type:URO Office Visit [facility] Evaluation + Plan note Future Appointments Appointment Date:07/07/2022 10:00:00 AM Scheduled Provider: Location:[facility] Appointment Type:Urology FT Appointment Date:07/07/2022 11:00:00 AM Scheduled Provider: Location:[facility] Appointment Type:Urology FT General Surgery [place] Evaluation + Plan note Future Appointments Appointment Date:11/02/2022 12:15:00 PM Scheduled Provider:Oh GOSS MD Location:[facility] Appointment Type:URO Office Visit [facility] Evaluation + Plan note Future Appointments Appointment Date:01/05/2023 09:15:00 AM Scheduled Provider: Location:[facility] Appointment Type:Urology FT Appointment Date:01/11/2023 09:30:00 AM Scheduled Provider:Oh GOSS MD Location:[facility] Appointment Type:URO Office Visit Diagnostic Tests Pending * [facility] Future Appointments Appointment Date:01/11/2023 09:30:00 AM Scheduled Provider:Oh GOSS MD Location:[facility] Appointment Type:URO [facility] Future Appointments Appointment Date:07/27/2023 10:15:00 AM Scheduled Provider:Antonio AMBRIZ MD Location:[facility] Appointment Type:URO Office Visit [facility] Evaluation + Plan note Future Appointments Appointment Date:07/27/2023 10:15:00 AM Scheduled Provider:Antonio AMBRIZ MD Location:[facility] Appointment Type:URO Office Visit Appointment Date:03/26/2024 01:00:00 PM Scheduled [facility]: [facility] Medicare Wellness [facility] Future Appointments Appointment Date:02/15/2024 01:30:00 PM Scheduled Provider:Antonio AMBRIZ MD [facility] App[facility] Type:URO Office Visit Appointment Date:03/26/2024 01:00:00 PM Scheduled Provider: Location:[facility] Appointment Type:FM Medicare Wellness Subsequent [facility] Evaluation + Plan note Future Appointments Appointment Date:03/26/2024 01:00:00 PM Scheduled Provider: Location:[facility] Appointment Type:FM Medicare Wellness Subsequent Appointment Date:04/06/2024 09:00:00 AM Scheduled Provider: Location:[facility] Appointment Type:Urology CALL PAT FT Appointment Date:04/09/2024 01:15:00 PM Scheduled Provider: Location:[facility] Appointment Type:Urology FT [facility] evaluation + Plan note Future Appointments Appointment Date:06/12/2024 10:20:00 AM Scheduled Provider:JACQUELINE HUFF PA-C Location:[facility] Appointment Type:URO Office Visit [facility] Evaluation + Plan note Future Appointments Appointment Date:04/06/2024 09:00:00 AM Scheduled Provider: Location:[facility] Appointment Type:Urology CALL PAT FT Appointment Date:04/09/2024 01:15:00 PM Scheduled Provider: Location:[facility] Appointment Type:Urology FT [facility] evaluation note* Diagnosis Onset Date Resolution Status Screening for colon cancer a [facility] Work Phone: Evaluation note* Diagnosis Onset Date Resolution Status Asthma acute Hyperlipemia acute Hypothyroid acute Screening for colon cancer a [facility] Work Phone: Evaluation note* Diagnosis Inflamed seborrheic keratosis documented in this encounter [facility]* Diagnosis Inflamed seborrheic keratosis documented in this encounter [facility]* Diagnosis Eosinophilic esophagitis- Primary Esophageal lesion Unspecified disorder of esophagus [facility] Diagnosis Eosinophilic esophagitis- Primary Esophageal lesion Unspecified disorder of esophagus [facility] Diagnosis Eosinophilic esophagitis- Primary [facility]* Diagnosis Melanocytic nevus of trunk- Primary Benign neoplasm of skin of trunk, except scrotum Seborrheic keratosis Inflamed seborrheic keratosis documented [facility] Author Alicia Wilks [facility] Note Date/Time October 03, 2024 12: 30pm [facility] [address] [place] [address] Gastroenterology H&P Signed Patient: Tarah Briseno MR#: [id number] : 1950 Acct:[id number] Age/Sex: 74 / F Adm Date: 5 Loc: Room: Type: [facility] Attending Dr: Alicia Wilks MD Copies to: MD Jacqueline Sears APRN, INTERIOR DECORATOR~ Date of Service: 10/03/2024 HISTORY & PHYSICAL: Patient's history with special attention to the cardiovascular, pulmonary systems and the current problem was reviewed with the patient immediately prior to the procedure. Present medications and doses reviewed in the EMR. Allergies and pertinent laboratory tests were also reviewedat this time in the EMR. The physical examination, as below, was then performed. Indication, assessment and HPI: 74-year-old female here for EGD for evaluation of dysphagia Family history of GI malignancy? No PHYSICAL EXAMINATION General appearance: NAD Skin: No jaundice Head: NC/AT Eyes: Anicteric Neck: Supple Lungs: Normal respiratory effort, no use of accessory muscles Abdomen: nondistended Neuro: Ox3. REVIEW OF SYSTEMS Constitutional: Denies malaise, fevers Cardiovascular: Denies chest pain, palpitations Respiratory: Denies shortness of breath, wheezing Gastrointestinal: As per HPI Genitourinary: Denies dysuria, polyuria Musculoskeletal: Denies joint swelling, joint stiffness Neurological: Denies confusion, numbness, tingling Endocrine: Denies fatigue Written informed consent obtained from the patient. Risks (including but not limited to perforation, infection, bloating, bleeding, need for emergent surgeryand loss of life), benefits and alternatives explained and questions answered. The patient verbalized understanding. Based on history patient is an appropriate candidate for the procedure. Alicia Wilks M.D. Documented By: Alicia Wilks MD 10/03/24 1135 Signed By: <Electronically signed by Alicia Wilks MD> 10/03/24 1135 [facility] Work Phone: Hospital course Narrative No data available for this section [facility] Discharge instructions No data available for this section [facility] instructionsAmbulatory Orders* Referral to Gastroenterology Time Frame: 08/07/24, Location: None Selected [facility] Work Phone: Progress note No data available for this section [facility] reason for referral (narrative)No reason for referral information available[facility] Work Phone: Reason for visit Narrative* Outpatient Procedure (Routine) - Closed Specialty Diagnoses / Procedures Referred By Frankie amezcua Referred To Contact [facility] Diagnoses Eosinophilic esophagitis Esophageal lesion Procedures EGD - THERAPEUTIC, EUS, OR TUBE INTERVENTIONS EGD - THERAPEUTIC, EUS, OR TUBE INTERVENTIONS EGD DILATION GASTRIC/DUODENAL STRICTURE Jaclyn Stewart, [place].INTERIOR DECORATOR [address] [place] [address] Phone: tel: fax: [facility] [address] [place] [address] Referral ID Status Reason Start Date Expiration Date V isits Requested Visits Authorized [id number] Closed Auto-Generate d Referral 10/16/2024 10/16/2025 1 1 [facility] Summary Purpose Family History No Family History Records Found Relationship Condition Age at Onset Recorded Date/T kiah Not Specified Heart disease Unknown mother Malignant neoplasm Unknown sister Diabetes mellitus Unknown Myocardial infarction Unknown Relationship Condition Age at Onset Recorded Date/T kiah mother Malignant neoplasm of uterus Unknown sister Diabetes mellitus Unknown Myocardial infarction Unknown Advance Directives No Advanced Directives Records Found Advance Directive Response Recorded Date/ Time Advance Directives No January 09 1:54pm Advance Directive Response Recorded Date/ Time Advance Directives No January 09 12:54pm Chief Complaint and Reason for Visit Chief Complaint est care Reason for Visit Screening for colon cancer Chief Complaint est care Dizziness, not feeling well Reason for Visit Asthma Hyperlipemia Hypothyroid Screening for colon cancer Chief Complaint Admit Date indigestion June 12, 2024 3:00pm 2 month f/u August 07, 2024 1 1:29am Reason for Visit Admit Date GERD (gastroesophageal reflux disease) N ovember 2023 3:00pm Dysphagia August 07, 2024 1 1:29am Chief Complaint Admit Date indigestion June 12, 2024 3:00pm 2 month f/u August 07, 2024 1 1:29am Refer : GERD/dysphagia September 06 10:36am Reason for Visit Admit Date GERD (gastroesophageal reflux disease) N ovember 2023 3:00pm Atypical chest pain August 07, 2024 1 1:29am Dysphagia August 07, 2024 1 1:29am GERD (gastroesophageal reflux disease) J anuary 2024 11:29am Dysphagia September 06, 2024 10:36am Chief Complaint Admit Date 2 month f/u August 07, 2024 1 1:29am Refer : GERD/dysphagia September 06 10:36am gerd,dysphagia October 03, 2024 9:4 5am gerd,dysphagia October 03, 2024 11: 35am Reason for Visit Admit Date Atypical chest pain August 07, 2024 1 1:29am Dysphagia August 07, 2024 1 1:29am GERD (gastroesophageal reflux disease) J anuary 2024 11:29am Atypical chest pain September 06, 2024 10:36am Dysphagia September 06, 2024 10:36am GERD (gastroesophageal reflux disease) F ebruary 2024 10:36am Schatzki's ring September 06, 2024 10:36am Chief Complaint Admit Date 2 month f/u August 07, 2024 1 1:29am Refer : GERD/dysphagia September 06 10:36am gerd,dysphagia October 03, 2024 9:4 5am gerd,dysphagia October 03, 2024 11: 35am f/u GERD/Dysphagia (EGD) October 18, 2024 10:44am Reason for Visit Admit Date Atypical chest pain August 07, 2024 1 1:29am Dysphagia August 07, 2024 1 1:29am GERD (gastroesophageal reflux disease) J anuary 2024 11:29am Atypical chest pain September 06, 2024 10:36am Dysphagia September 06, 2024 10:36am GERD (gastroesophageal reflux disease) F ebruary 2024 10:36am Schatzki's ring September 06, 2024 10:36am Dysphagia October 18, 2024 10:4 4am GERD (gastroesophageal reflux disease) A pril 2024 10:44am Schatzki's ring October 18, 2024 10:4 4am Chief Complaint Admit Date f/u GERD/Dysphagia (EGD) October 18, 2024 10:44am Medicare AWV Subsequent January 16, 2025 1 1:01am Reason for Visit Admit Date Dysphagia October 18, 2024 10:4 4am GERD (gastroesophageal reflux disease) A pril 2024 10:44am Schatzki's ring October 18, 2024 10:4 4am Squamous papilloma October 18, 2024 10:4 4am Encounter for subsequent desmond ual wellness visit in Medicare patient January 16, 2025 11:01am Chief Complaint Admit Date Medicare AWV Subsequent January 16, 2025 1 1:01am follow up gerd/dysphagia January 28, 2025 11:05am Reason for Visit Admit Date Asthma January 16, 2025 11:01 am BMI 39.0-39.9,adult January 16, 2025 11:01 am Hyperlipemia January 16, 2025 11:01 am Hypothyroid January 16, 2025 11:01 am Post-menopausal January 16, 2025 11:01 am Screening for breast cancer January 16 11:01am Screening for osteoporosis January 16 11:01am Encounter for subsequent desmond ual wellness visit in Medicare patient January 16, 2025 11:01am Dysphagia January 28, 2025 11:0 5am GERD (gastroesophageal reflux disease) J milli 2024 11:05am Additional Source Comments Care Team (unrecognized sect ion and content) Team Status: Active Member Role Status Dates Raul Lewis MD Primary Care Provider Active Team Status: Inactive Member Role Status Dates Raul Lewis MD Primary Care Provider Active S tart: January 10, 2024 End: January 10, 2024 Jacqueline Hernandez APRN LINSEED CAKE TRIMMER-C Attending Provider Act mecca Start: January 10, 2024 End: January 10, 2024 Team Status: Active Member Role Status Dates Jacqueline Hernandez APRN LINSEED CAKE TRIMMER-C Primary Care Provider Active Team Status: Inactive Member Role Status Dates Jacqueline Hernandez APRN LINSEED CAKE TRIMMER-C Primary Care Provider, Attending Provider Active Start: February 17, 2024 End: February 17, 2024 Team Status: Inactive Member Role Status Dates Jacqueline Hernandez APRN [employer]SEED CAKE TRIMMER-C Primary Care Provider, Attending Provider Active Start: June 12, 2024 End: June 12, 2024 Team Status: Inactive Member Role Status Dates Jacqueline Hernandez APRN LINSEED CAKE TRIMMER-C Primary Care Provider, Attending Provider Active Start: August 07, 2024 End: August 07, 2024 Player Manager Relationship Specialty Start Date End Date Colby Escobar MD [address] [place] [id number] PCP - General Family Medicine 07/21/23 Player Manager Relationship Specialty Start Date End Date Colby Escobar MD [address] [place] [address], [place] [address] PCP - General Family Medicine 07/21/23 Team Status: Inactive Member Role Status Dates Jacqueline Hernandez APRN LINSEED CAKE TRIMMER-C Primary Care Provider, Referring Provider Active Start: September 06, 2024 End: September 06, 2024 [place] APRN Attending Provider Active Start: September 06, 2024 End: September 06, 2024 Player Manager Relationship Specialty Start Date End Date Colby Escobar MD [address] [place] [address], [place] [id number] PCP - General Family Medicine 07/21/23 Team Status: Inactive Member Role Status Dates Jacqueline Hernandez APRN LINSEED CAKE TRIMMER-C Primary Care Provider Active Start: October 03, 2024 End: October 03, 2024 Alicia Wilks MD Attending Provider Active Start: October 03, 2024 End: October 03, 2024 Team Status: Active Member Role Status Dates Jacqueline Hernandez APRN LINSEED CAKE TRIMMER-C Primary Care Provider Active Start: October 03, 2024 Alicia Wilks MD Attending Provider, Other Provider Active Start: October 03, 2024 Player Manager Relationship Specialty Start Date End Date Raul Lewis MD [address] [place] [address] PCP - General 02/10/04 Team Status: Inactive Member Role Status Dates Jacqueline Hernandez APRN LINSEED CAKE TRIMMER-C Primary Care Provider Active Start: October 18, 2024 End: October 18, 2024 [place] APRN Attending Provider Active Start: October 18, 2024 End: October 18, 2024 Player Manager Relationship Specialty Start Date End Date Raul Lewis MD [address] [place] [address] PCP - General 02/10/04 Player Manager Relationship Specialty Start Date End Date Raul Lewis MD [address] [place] [address] PCP - General 02/10/04 Player Manager Relationship Specialty Start Date End Date Raul Lewis MD [address] [place] [address] PCP - General 02/10/04 Team Status: Inactive Member Role Status Dates Jacqueline Hernandez APRN [employer]SEED CAKE TRIMMER-C Primary Care Provider Active Start: January 16, 2025 End: January 16, 2025 Jacqueline Hernandez APRN LINSEED CAKE TRIMMERKarleneC Attending Provider Act mecca Start: January 16, 2025 End: January 16, 2025 Player Manager Relationship Specialty Start Date End Date Raul Lewis MD [address] [place] [address] PCP - General 02/10/04 Team Status: Inactive Member Role Status Dates Jacqueline Hernandez APRN LINSEED CAKE TRIMMER-C Primary Care Provider Active Start: January 28, 2025 End: January 28, 2025 [place] APRN Attending Provider Active Start: January 28, 2025 End: January 28, 2025 Player Manager Relationship Specialty Start Date End Date Colby Escobar MD [address] [place] [address] PCP - General Family Medicine 07/21/23 Player Manager Relationship Specialty Start Date End Date Colby Escobar MD [address] [place] [address] PCP - General Family Medicine 07/21/23 INFORMATION SOURCE (unrecogn ized section and content) DATE CREATED AUTHOR 05/19/2022 [facility] DATE CREATED AUTHOR AUTHOR'S ORGANIZ ATION 06/14/2024 [facility] DATE CREATED AUTHOR AUTHOR'S ORGANIZ ATION 10/14/2024 [facility] DATE CREATED AUTHOR AUTHOR'S ORGANIZ ATION 01/15/2025 [facility] DATE CREATED AUTHOR AUTHOR'S ORGANIZ ATION 02/11/2025 [facility] EPIC Goals (unrecognized section and content) Goals may be documented in a n alternate section Reason for Visit (unrecogniz ed section and content) Reason Comments Follow-up Reason Comments New Patient Esophageal Tumor Reason Onset Date Comments Results 01/17/2025 Reason Comments Skin Check Source Comments (unrecognize d section and content) In the event this informatio n is protected by the Federal Confidentiality of Alcohol and Drug Abuse Patient Records regulations: The Federal rules restrict any use of the information to criminally investigate or prosecute any alcohol or drug abuse patient.[facility] the event this information is protected by the Federal Confidentiality of Alcohol and Drug Abuse Patient Records regulations: The Federal rules restrict any use of the information to criminally investigate or prosecute any alcohol or drug abuse patient.[facility] the event this information is protected by the Federal Confidentiality of Alcohol and Drug Abuse Patient Records regulations: The Federal rules restrict any use of the information to criminally investigate or prosecute any alcohol or drug abuse patient.[facility] the event this information is protected by the Federal Confidentiality of Alcohol and Drug Abuse Patient Records regulations: The Federal rules restrict any use of the information to criminally investigate or prosecute any alcohol or drug abuse patient.[facility] the event this information is protected by the Federal Confidentiality of Alcohol and Drug Abuse Patient Records regulations: The Federal rules restrict any use of the information to criminally investigate or prosecute any alcohol or drug abuse patient.[facility] the event this information is protected by the Federal Confidentiality of Alcohol and Drug Abuse Patient Records regulations: The Federal rules restrict any use of the information to criminally investigate or prosecute any alcohol or drug abuse patient.[facility] FOR RECORDS PERTAINING TO PATIENTS WHO [...] BE BASED ON THE PRIMARY CLINICAL RECORDS. [facility]. provides no warranty or guarantee of the accuracy or completeness of information in this document.
--- OUTSIDE RECORDS SUMMARY | 2025-03-02 11:41 | XMS_ITS | Clinical Summary ---
Author Organization [facility] Address [address], [address] [place] [address] Care Team Providers Care Marketing Specialist Name Role Phone Yaneth Lewis MD Primary Care Provider Unavailab le Allergies Active Allergy Reactions Criticality Noted Date Comments Iodine Anaphylaxis High 03/06/2014 Medications levothyroxine (SYNTHROID) 25 MCG tablet Take 25 mcg by mouth Daily. Active nystatin (MYCOSTATIN) powderIndicatio ns:Tinea cruris Apply 2 times daily. 1 Bottle 3 4 Active clotrimazole-be tamethasone (LOTRISONE) creamIndication s:Yeast infection involving the vagina and surrounding area Apply topically 2 times daily. 1 Tube 3 4 Active albuterol (PROVENTIL) (2.5 MG/3ML) 0.083% nebulizer solution Take 2.5 mg by nebulization 4 times daily. Active PULMICORT FLEXHALER 180 MCG/ACT AEPB inhaler 3 4 Active montelukast (SINGULAIR) 10 MG tablet 4 4 Active Active Problems Problem Noted Date Diagnosed Date PMB (postmenopausal bleeding) Endometrial thickening on ultrasound Overview (02/19/2018): Replacing Deprecated Diagnoses Immunizations Immunization Administration Dates Next Due Influenza Virus Vaccine 03/31/2014 Pneumococcal Conjugate 7-valent (Prevnar7) 03/31 Family History Medical History Relation Name Comments Stroke Father Breast Cancer Maternal Grandmother Cancer Mother Relation Name Status Comments Father Maternal Grandmother Mother Social History Tobacco Use Types Packs/Day Years Used Date Smoking Tobacco: Never Alcohol Use Standard Drinks/Week Comments No 0 (1 standard drink = 0.6 oz pur e alcohol) Comments No Sex and Gender Information Value Date Recorded Sex Assigned at Not on file Legal Sex Female 11:08 AM EST Gender Identity Not on file Sexual Orientation Not on file Last Filed Vital Signs Vital Sign Reading Time Taken Comments Blood Pressure 128/74 07/17/2014 10:36 AM EST Pulse 52 06/18/2014 10:10 AM EST Temperature 36.7 C (98 F) 06/18/2014 10:10 AM EST Respiratory Rate 18 06/18/2014 10:10 AM EST Oxygen Saturation 96% 06/18/2014 10:10 AM EST Inhaled Oxygen Concentration - - Weight 108.9 kg (240 lb) 07/17/2014 10:36 AM EST Height 165.1 cm (5' 5 ) 07/17/2014 10:36 AM EST Body Mass Index 39.94 07/17/2014 10:36 AM EST Plan of Treatment Not on file Advance Directives * Full Code (Latest Code Status on File) Date Activated Date Inactivated Comments 06/18/2014 8:48 AM 06/18/2014 2:42 PM Care Teams Marketing Specialist Relationship Specialty Start Date End Date Yaneth Lewis MD [address] [place] [address] PCP - General 06/05/14
--- OUTSIDE RECORDS SUMMARY | 2025-03-02 11:41 | XMS_ITS | Encounter Summary ---
Author Organization [facility] Address [address], [address] [place] [address] Care Team Providers Care Concrete Rod Buster Name Role Phone Yaneth Lewis MD Primary Care Provider [facility] Encounter Details Date Type Department Care Team (Late st Contact Info) Description 06/19/2014 Post-op Telephone [facility] General Surgery [address] [place], [place] [id number] Akilah Byrd RN Social History Tobacco Use Types Packs/Day Years [...] on file documented as of this encounter Plan of Treatment Not on file documented as of this encounter Visit Diagnoses Not on filedocumented in this encounter Care Teams Concrete Rod Buster Relationship Specialty Start Date End Date Yaneth Lewis MD [address] [place] [address] PCP - General 06/05/14 documented as of this encounter
--- OUTSIDE RECORDS SUMMARY | 2025-03-02 11:41 | XMS_ITS | Encounter Summary ---
Author Organization [facility] Address [address] [place] [address] Care Team Providers Care Detention Officer Name Role Phone Colby Escobar MD Primary Care Provider [phone] Encounter Details Date Type Department Care Team (Late Contact Info) Description 12/17/2022 Abstract [facility] [address] [place] [address] Yancy Carmichael PA [address] [place] [address] Social History Tobacco Use Types Packs/Day Years Used Date Smoking Tobacco: Never Smokeless Tobacco: Never Tobacco Cessation:Counseling Given: Not Answered Comments Unknown Sex and Gender Information Value Date Recorded Sex Assigned at Not on file Legal Sex Female 7:09 PM EDT Gender Identity Not on file Sexual Orientation Not on file documented as of this encounter Plan of Treatment Upcoming Encounters Date Type Department Care Team (Late Contact Info) Description 02/10/2026 10:00 AM EDT Office Visit [facility] [address] [place] [id number] Yancy Carmichael PA [address] [place] [address] documented as of this encounter Visit Diagnoses Not on filedocumented in this encounter Care Teams Detention Officer Relationship Specialty Start Date End Date Colby Escobar MD [address] [place] [address] PCP - General Family Medicine 07/21/23 documented as of this encounter
--- OUTSIDE RECORDS SUMMARY | 2025-03-02 11:41 | XMS_ITS | Clinical Summary ---
Author Organization [facility] Address [address] [address]. [place] [phone] Phone Care Team Providers Care Community Educator Name Role Phone Unavailable Primary Care Provider Unavailabl e Social History Tobacco Use Types Packs/Day Years Used Date Smoking Tobacco: Never Assessed Comments Unknown Sex and Gender Information Value Date Recorded Sex Assigned at Not on file Legal Sex Female 6:09 PM EST Gender Identity Not on file Sexual Orientation Not on file Plan of Treatment Not on file
--- OUTSIDE RECORDS SUMMARY | 2025-03-02 11:41 | XMS_ITS | Encounter Summary ---
Author Organization [facility] Address [address] [place] [address] Care Team Providers Care Planer Setter Name Role Phone Colby Escobar MD Primary Care Provider [phone] Encounter Details Date Type Department Care Team (Late st Contact Info) Description 11/01/2023 Orders Only [facility] [address] [place] [address] Destiny Doss MA Social History Tobacco Use Types Packs/Day Years Used Date Smoking Tobacco: Never Smokeless Tobacco: Never Comments Unknown Sex and Gender Information Value Date Recorded Sex Assigned at Not on file Legal Sex Female 7:09 PM EDT Gender Identity Not on file Sexual Orientation Not on file documented as of this encounter Plan of Treatment Upcoming Encounters Date Type Department Care Team (Late st Contact Info) Description 02/10/2026 10:00 AM EDT Office Visit [facility] [address] [place] [phone] Yancy Carmichael PA [address] [address] documented as of this encounter Visit Diagnoses Not on filedocumented in this encounter Care Teams Planer Setter Relationship Specialty Start Date End Date Colby Escobar MD [address] [place] [address] PCP - General Family Medicine 07/21/23 documented as of this encounter
--- OUTSIDE RECORDS SUMMARY | 2025-03-02 11:41 | XMS_ITS | Clinical Summary ---
Author Organization [facility] Address [address] [place], [place] [id number] Care Team Providers Care Corn Detasseler Machine Operator Name Role Phone Yaneth Lewis MD Primary Care Provider [place] CNP Unavailable [phone] Allergies Active Allergy Reactions Criticality Noted Date Comments Iodine 04/06/2004 shock Latex Hives 12/20/2022 Medications ADVIL 100MG TABLETIndication s:Pain in joint, shoulder region,Myalgia and myositis, unspecified take 4 pills 4 times daily 0 04/06/2004 Active atorvastatin (LIPITOR) 40 mg tablet Take 40 mg by mouth. 08/30/2023 Active levothyroxine (SYNTHROID) 25 mcg tablet Take 25 mcg by mouth. 11/01/2023 Active omeprazole (PRILOSEC) 40 mg capsule Take 1 capsule by mouth two times a day. 180 capsule 1 01/17/2025 07/16/20 25 Active Active Problems Problem Noted Date Diagnosed Date FIBROMYALGIA 04/06/2004 Encounters Date Type Department Care Team Description 01/17/2025 Results Follow-Up Gastroenterology [address] [id number] Jaclyn Andrews APRN.SAFETY COUNCIL DIRECTOR Results 01/10/2025 1:01 PM EDT Anesthesia Event Gastroenterology [address] [place] [phone] Luis Quick MD 01/10/2025 11:47 AM EDT - 01/10/2025 11:59 PM EDT Hospital Encounter Gastroenterology [address] [place] [phone] Vicky Downing MD Eosinophilic esophagitis [K20.0] Discharge Disposition: Home 01/10/2025 Travel 01/03/2025 GI Preprocedure Call Gastroenterology [address] [place] [address] Josefina Cheema RN from Last 3 Months Social History Tobacco Use Types Packs/Day Years Used Date Smoking Tobacco: Never Smokeless Tobacco: Never Tobacco Cessation:Counseling Given: Not Answered Alcohol Use Standard Drinks/Week Comments Never 0 (1 standard drink = 0.6 oz pur e alcohol) Area Deprivation Index Answer Date Rebel rded National Score (1-100), lower number is lower ri sk 86 10/16/2024 State Score (1-10), lower number is lower risk 8 10/16/2024 Data from: https://www.neighborhoodatlas.[facility]/. Last address used for calculation [address] 10/16/2024 Comments No Sex and Gender Information Value Date Recorded Sex Assigned at Not on file Legal Sex Female 10:04 AM EST Gender Identity Not on file Sexual Orientation Not on file Last Filed Vital Signs Vital Sign Reading Time Taken Comments Blood Pressure 150/66 01/10/2025 2:00 PM EDT Pulse 53 01/10/2025 2:00 PM EDT Temperature 36.3 C (97.3 F) 01/10/2025 12:10 PM EDT Respiratory Rate 18 01/10/2025 2:00 PM EDT Oxygen Saturation 98% 01/10/2025 2:00 PM EDT Inhaled Oxygen Concentration - - Weight 104.3 kg (230 lb) 01/10/2025 12:10 PM EDT Height 162.6 cm (5' 4 ) 01/10/2025 12:10 PM EDT Body Mass Index 39.48 01/10/2025 12:10 PM EDT Plan of Treatment Upcoming Encounters Date Type Department Care Team (Late st Contact Info) Description 04/25/2025 11:00 AM EDT Appointment Gastroenterology [address] [place] [address] Vicky Downing MD [address] [place] [address] Eosinophilic esophagitis [K20.0] 05/03/2025 11:00 AM EDT Office Visit Gastroenterology [address] [address] Jaclyn Andrews, [place].SAFETY COUNCIL DIRECTOR [address] [place] [address] esophageal tumor Health Maintenance Due Date Last Done Comments Anxiety Screening 1970 Depression Screening 1970 Hepatitis C Screening 1970 DTaP,Tdap,Td Vaccine (1 - Tdap) [address] Colonography 1997 Colonoscopy 1997 Fecal Occult Blood 1997 Lipid Screening 1997 Sigmoidoscopy 1997 Shingrix Vaccine (1 of 2) 2002 Diabetes Screening 04/06/2007 04/06/2004 Pneumococcal Vaccine: 50+ (2 of 2 - PCV) 04/28/2015 04/28/2014, 03/31/2014 Bone Density Screening 2017 Advance Directive Discussion 07/18/2024 Medicare Advantage Annual We llness Visit 07/18/2024 Influenza Vaccine (#1) 2025 , 03/30/2022, 04/24/2021, Additional history exists Cologuard (FIT-DNA) 06/26/2027 06/26/2024 Colorectal Cancer Screening 06/26/2027 RSV Vaccine (1 - 1-dose 75+ series) 2027 Procedures Procedure Name Priority Date/Time Associated Diagnosis Comments SURGICAL PATHOLOGY Routine 01/10/2025 1: 24 PM EDT Eosinophilic esophagitis Esophageal lesion EGD - THERAPEUTIC, EUS, OR TUBE INTERVENTIONS Routine 01/10/2025 12:57 PM EDT Eosinophilic esophagitis Esophageal lesion PT ED PATIENT INFORMATION 12/11/2024 PT ED DIGESTIVE DISEASE 12/11/2024 COMPREHENSIVE METABOLIC PANEL Routine 04/06/2004 5:32 PM EDT Joint Pain-Shlder FIBROMYALGIA from Last 3 Months or Most Recently Relevant to Health Maintenance Results * SURGICAL PATHOLOGY (01/10/2025 1:24 PM EDT) Case Report Surgical Pathology Report Case: [id number] Authorizing Provider: Vicky Downing MD Collected: 01/10/2025 01:24 PM Ordering Location: Gastroenterology Received: 01/10/2025 04:46 PM Pathologist: Leonid Garcia MD Specimens: A) - Esophagus, Biopsy, r/o polynoma B) - Esophagus, Biopsy, r/o EOE C) - Esophagus, Biopsy, r/o EOE 01/14/2025 11:59 AM EDT [facility] FINAL DIAGNOSIS A. Esophagus, polyp, biopsy: - Inflamed squamous mucosa with [...] to fourteen intraepithelial eosinophils per high-power field). 01/14/2025 11:59 AM EDT [facility] at 1159 EDT Gross Description A. Esophagus, Biopsy Received in formalin are multiple [...] 0.1 cm. Totally submitted in one cassette. January 10, 2025 8:35 PM Gross examination performed at [facility], [address] [place] [address], [place] [address] 01/14/2025 11:59 AM EDT [facility] Performing Lab Diagnostic interpretation performed at: [facility], [address] [place] [address] CLIA# [id number] Unix Administrator: Rogelio Levine MD 01/14/2025 11:59 AM EDT [facility] Disclaimer Laboratory Developed Test (LDT) Disclaimer: Performance characteristics of immunohistochemical , immunofluorescent, and chromogenic in-situ hybridization tests have been determined by the performing laboratory within [facility]'s [facility] Pathology and Laboratory Medicine Department ([facility], [facility], [facility], [facility], [facility], [facility], or [facility]) in a manner consistent with CLIA requirements. One or more of these tests may not have been cleared or approved by the FDA. [facility] is regulated under CLIA as qualified to perform high-complexity testing. These tests are used for clinical purposes. These should not be regarded as investigational or for research. Positive and negative controls stain appropriately. 01/14/2025 11:59 AM EDT [facility] Tissue SPECIMEN FROM ESOPHAGUS OBTAINED BY INCISIONAL BIOPSY / Unknown 01/10/2025 1:24 PM EDT 01/10/2025 4:46 PM EDT Comment:Esophagus Polyp, col d snared Tissue specimen (specimen) SPECIMEN FROM ESOPHAGUS OBTAINED BY INCISIONAL BIOPSY / Unknown 01/10/2025 1:25 PM EDT 01/10/2025 4:46 PM EDT Comment:Lower Esophagus biop sies Tissue specimen (specimen) SPECIMEN FROM ESOPHAGUS OBTAINED BY INCISIONAL BIOPSY / Unknown 01/10/2025 1:25 PM EDT 01/10/2025 4:46 PM EDT Comment:Mid & Proximal esoph marie biopsies us Vicky Downing MD SURGICAL PATHOLOGY Final Result [facility] [address] [place] [address], [facility] [place] [address], * EGD - THERAPEUTIC, EUS, OR TUBE INTERVENTIONS (01/10/2025 12:57 PM EDT) Anatomical Region Laterality Modality Other 01/10/2025 12:5 7 PM EDT Narrative 01/10/2025 1:35 PM EDT A31 Gastrointestinal Endoscopy Patient Name: Tarah Temple Procedure Date: 01/10/2025 12:57 PM Date of : 1950 Admit Type: Outpatient Age: 74 Room: A3 PROC 3 Gender: Female Note Status: Finalized Attending MD: Vicky Downing MD, [id number] Procedure: Upper GI endoscopy Indications: Dysphagia Providers: Vicky Downing MD Patient Profile: This is a 74 year old female. Refer to note in patient chart for documentation of history and physical. Referring Physician: Jaclyn Andrews (Referring MD) Medicines: Monitored Anesthesia Care Complications: [...] referring provider. Procedure Code(s): --- Professional --- 25449, 22, Esophagogastroduodenoscopy, flexible, transoral; with removal of tumor(s), polyp(s), or other lesion(s) by snare technique 70897, Esophagogastroduodenoscopy, flexible, transoral; with insertion of guide wire followed by passage of dilator(s) through esophagus over guide wire 31446, 59,51, Esophagogastroduodenoscopy, flexible, transoral; with biopsy, single or multiple Diagnosis Code(s): --- Professional --- K22.89, Other specified disease of esophagus K44.9, Diaphragmatic hernia without obstruction or gangrene R13.10, Dysphagia, unspecified CPT copyright 2020 [employer]. All rights reserved. The codes documented in this report are preliminary and upon civil rights attorney review may be revised to meet current compliance requirements. Attending Participation: I personally performed the entire procedure. Scope In: 1:09:54 PM Scope Out: 1:26:20 PM MD Vicky Ribera MD 01/10/2025 1:32:34 PM This report has been signed electronically by Vicky Downing MD Number of Addenda: 0 Note Initiated On: 01/10/2025 12:57 PM us Jaclyn Tarangoon ASSET MANAGEMENT LEAD.SAFETY COUNCIL DIRECTOR DIGESTIVE DISEASE Fin al Result * PT ED PATIENT INFORMATION (12/11/2024) 12/11/2024 Narrative AMISHA - 01/11/2025 Provider CHRIS your patient TARAH TEMPLE has not started their Amisha program, time has . Amisha program: PATIENT SAFETY INSTRUCTIONS FOR HEALTHCARE SETTINGS us Vicky Downing MD AMISHA Final Result Performing Organization Address [facility] Co de Phone Number AMISHA * PT ED DIGESTIVE DISEASE (12/11/2024) 12/11/2024 Narrative AMISHA - 01/11/2025 Provider CHRIS your patient TARAH TEMPLE has not started their Amisha program, time has . Amisha program: UPPER GI ENDOSCOPY (EGD) us Vicky oDwning MD AMISHA Final Result AMISHA * (ABNORMAL) COMP METABOLIC PANEL (04/06/2004 5:32 PM EDT) Protein, Total 7.1 6.0 - 8.4 g/dL [facility] Albumin 4.2 3.5 - 5.0 g/dL [facility] Calcium 9.7 8.5 - 10.5 mg/dL [facility] Bilirubin, Total 0.4 0.0 - 1.5 mg/dL [facility] Alkaline Phosphatase 73 40 - 150 U/L [facility] AST 13 7 - 40 U/L [facility] Glucose 83 65 - 100 mg/dL [facility] BUN 8 8 - 25 mg/dL [facility] Creatinine 0.8 0.7 - 1.4 mg/dL [facility] Sodium 139 132 - 148 mmol/L [facility] Potassium 4.0 3.5 - 5.0 mmol/L [facility] Chloride 102 98 - 110 mmol/L [facility] CO2 33(A) 24 - 32 mmol/L [facility] Anion Gap 4 0 - 15 mmol/L [facility] ALT 9 0 - 45 U/L [facility] Blood specimen (specimen) BLOOD SPECIMEN / Unknown 04/06/2004 5:32 PM EDT [facility] Final Result [facility] [address] [place] [address] from Last 3 Months or Most Recently Relevant to Health Maintenance Insurance [employer] Care Teams Corn Detasseler Machine Operator Relationship Specialty Start Date End Date Yaneth Lewis MD [address] [facility] [place] [address] PCP - General 02/10/04 [place], GERMAINE [address] [facility] [address] [place] [address] Family Medicine 01/22/25
[2025-03-02] MEDS: LIDOCAINE HCL 1% 100 MG/10 ML MDV INJ (11:47)
[2025-03-02 11:59] VITALS: BP 132/82; PULSE 88; O2SAT 98
== END 2025-03-02 12:01 | disposition home or self-care (01) ==
PROVIDERS: Emergency Provider Emergency Medicine; PCP Nurse Practitioner Family
DX: S61.012A Laceration without foreign body of left thumb without damage to nail, initial encounter (principal); W27.8XXA Contact with other nonpowered hand tool, initial encounter
CPT/HCPCS: 99284

== ENCOUNTER 2025-03-06 13:07 | Outpatient (OUT) | payer MEDICARE, SELFPAY ==
--- OUTSIDE RECORDS SUMMARY | 2014-06-10 03:29 | XMS_ITS | Encounter Summary ---
Author Organization [facility] Address [address], [address] [place] [address] Care Team Providers Care Sterile Tech Name Role Phone Yaneth Lewis MD Primary Care Provider Unavailab le Encounter Details Date Type Department Care Team (Late st Contact Info) Description 06/10/2014 2:29 AM EST Hospital Encounter MTH PRE ADMIT [address] [phone] Gil Ross MD [address] [facility] [address] [facility] [address] [phone] Social History Tobacco Use Types Packs/Day Years [...] FINAL Procedure: TRT Jun 10 2014 10:08AM [id number] CHEST PA AND LATERAL Reason for Exam: ^preop asthma FULL RESULT: REPORT: Chest PA and lateral INDICATION: Preoperative evaluation FINDINGS: The lungs are well expanded and clear bilaterally. No focal consolidation, pleural effusion or pneumothorax seen. Normal cardiac and mediastinal silhouettes. No free intraperitoneal air. Hypertrophic degenerative changes thoracic spine. IMPRESSION: Normal chest Report Transcribed by: [facility] on Jun 10 2014 10:23A Read by: YOAV TOM M.D. [id number] on Jun 10 2014 10:23A Electronically Signed by: DR. YOAV TOM M.D. on: Jun 10 2014 10:23A Procedure Note Yoav Tom MD - 06/10/2014 FINAL Procedure: TRT Jun 10 2014 10:08AM [id number] CHEST PA AND LATERAL Reason for Exam: ^preop asthma FULL RESULT: REPORT: Chest PA and lateral INDICATION: Preoperative evaluation FINDINGS: The lungs are well expanded and clear bilaterally. No focal consolidation, pleural effusion or pneumothorax seen. Normal cardiac and mediastinal silhouettes. No free intraperitoneal air. Hypertrophic degenerative changes thoracic spine. IMPRESSION: Normal chest Report Transcribed by: [facility] on Jun 10 2014 10:23A Read by: YOAV TOM M.D. [id number] on Jun 10 2014 10:23A Electronically Signed by: DR. YOAV TOM M.D. on: Jun 10 2014 10:23A Gil Ross MD IMG DIAGNOSTIC IMAGING ORDERA BLES Final Result * Microscopic Urinalysis (06/10/2014 9:56 AM EST) Pathologist [facility] - 06/10/2014 11:32 AM EST PN LAB WBC, UA 0 TO 2 0 - 5 /HPF 06/10/2014 11:32 AM EST PN LAB RBC, UA 0 TO 2 0 - 2 /HPF 06/10/2014 11:32 AM EST [facility] Casts UA NOT REPORTED 0 - 2 /LPF [facility] Crystals, UA NOT REPORTED NONE /HPF [facility] Epithelial Cells, UA 2 TO 5 0 - 25 /HPF 06/10/2014 11:33 AM EST [facility] Comment: Performed at [address] [place] [address] ([phone] CORRECTED ON 06/10 AT 1133: PREVIOUSLY REPORTED 0 TO 2 Renal Epithelial, UA NOT REPORTED 0 /HPF [facility] Bacteria, UA NOT REPORTED NONE [facility] Mucus, UA NOT REPORTED NONE [facility] Trichomonas NOT REPORTED NONE [facility] Amorphous, UA NOT REPORTED NONE [facility] Other Observations UA NOT REPORTED NREQ [facility] Yeast, UA NOT REPORTED NONE [facility] 06/10/2014 9:56 AM EST 06/10/2014 9:57 AM EST us Gil Ross MD URINE ORDERABLES Edited Resul t - Final [facility] [address] [place] [address] [place] [address], [facility] [phone] [facility] * TYPE AND SCREEN (06/10/2014 9:56 AM EST) Expiration Date 06/17/2014 4 11:12 AM EST [facility] Arm Band Number [id number] 4 11:12 AM EST [facility] ABO/Rh O POSITIVE 06/10/2014 11:12 AM EST [facility] Antibody Screen NEGATIVE 4 11:12 AM EST [facility] Comment: Performed at [address] [place] [address] ([phone] BLOOD SPECIMEN / Unknown 06/10/2014 9:56 AM EST 06/10/2014 9:57 AM EST us Gil Ross MD BLOOD BANK TEST ORDERABLES Fi nal Result [address] [address] [phone] [facility] * (ABNORMAL) UA W/REFLEX CULTURE (06/10/2014 9:56 AM EST) Color, UA YELLOW YEL 06/10/2014 11:32 AM EST [facility] Turbidity UA CLEAR CLEAR 06/10/2014 11:32 AM EST [facility] Glucose, Ur NEGATIVE NEG 06/10/2014 11:32 AM EST [facility] Bilirubin Urine NEGATIVE NEG 06/10/2014 11:32 AM EST [facility] Ketones, Urine NEGATIVE NEG 06/10/2014 11:32 AM EST [facility] Specific [place], UA 1.020 1.010 - 1.020 06/10/2014 11:32 AM EST [facility] Urine Hgb 1+(A) NEG 06/10/2014 11:32 AM EST [facility] pH, UA 6.0 5.0 - 9.0 06/10/2014 11:32 AM EST [facility] Protein, UA NEGATIVE NEG 06/10/2014 11:32 AM EST [facility] Urobilinogen, Urine Normal NORM 06/10/2014 11:32 AM EST [facility] Nitrite, Urine NEGATIVE NEG 06/10/2014 11:32 AM EST [facility] Leukocyte Esterase, Urine NEGATIVE NEG 06/10/2014 11:32 AM EST [facility] Comment: Performed at [address] [place] [address] ([phone] Urinalysis Comments NOT REPORTED [facility] Urine 06/10/2014 9:56 AM EST 06/10/2014 9:57 AM EST Gil Ross MD URINE ORDERABLES Final Result [facility] [address] [place], [place] [address] [phone] [facility] * CBC auto differential (06/10/2014 9:56 AM EST) WBC 7.7 3.5 - 11.0 k/uL 06/10/2014 10:20 AM EST [facility] RBC 5.06 4.0 - 5.2 m/uL 06/10/2014 10:20 AM EST [facility] Hemoglobin 14.5 12.0 - 16.0 g/dL 06/10/2014 10:20 AM EST [facility] Hematocrit 44.2 36 - 46 % 06/10/2014 10:20 AM EST [facility] MCV 87.3 80 - 100 fL 06/10/2014 10:20 AM EST [facility] MCH 28.7 26 - 34 pg 06/10/2014 10:20 AM EST [facility] MCHC 32.8 31 - 37 g/dL 06/10/2014 10:20 AM EST [facility] RDW 15.1 12.1 - 15.2 % 06/10/2014 10:20 AM EST [facility] Platelets 289 140 - 450 k/uL 06/10/2014 10:20 AM EST [facility] MPV NOT REPORTED 6.0 - 12.0 fL [facility] Differential Type NOT REPORTED [facility] Seg Neutrophils 50 36 - 66 % 4 10:20 AM EST [facility] Lymphocytes 37 24 - 44 % 06/10/2014 10:20 AM EST [facility] Monocytes % 9 0 - 12 % 06/10/2014 10:20 AM EST [facility] Eosinophils % 4 0 - 8 [...] AM EST PN LAB Comment: Performed at [address] [place] [address] ([phone] WBC Morphology NOT REPORTED [facility] RBC Morphology NOT REPORTED [facility] Platelet Estimate NOT REPORTED [facility] BLOOD SPECIMEN / Unknown 06/10/2014 9:56 AM EST 06/10/2014 9:57 AM EST us Gil Ross MD HEMATOLOGY ORDERABLES Final R esult [address] [address], [facility] [phone] [facility] documented in this encounter Visit Diagnoses Not on filedocumented in this encounter Care Teams Sterile Tech Relationship Specialty Start Date End Date Yaneth [place] MD [address] [place] [address] PCP - General 06/05/14 documented as of this encounter
--- NOTE | 2025-03-06 13:11 | XR_ITS ---
The [address] [address] Patient Name: TARAH BRISENO MRN: [id number] date: 1950 Sex: F Assigned Patient Location: [facility] Current Patient Location: [facility] Accession/Order Number: [id number] Exam Date: 03/06/2025 15:52 Report Date: 03/06/2025 15:55 At the request of: GRACIA DAVEY Procedure: XR ribs LT min 3V w CXR1V Left Rib series with Single View Chest HISTORY: Fell injuring left ribs COMPARISON: None MEDIASTINUM: Cardiac, mediastinal hilar silhouettes are within normal limits. LUNGS AND PLEURA: No acute lung process, pleural effusion or pneumothorax identified. ACUTE FINDINGS: No displaced rib fracture identified. DEGENERATIVE CHANGE: Unremarkable SOFT TISSUE: Unremarkable POSTOP CHANGES: None XR/XR ribs LT min 3V w CXR1V IMPRESSION: No displaced rib fracture. No acute chest findings. Impression dictated by: Anthony Flores M.D. 03/06/2025 3:55 PM Dictation Location: [facility] Electronically authenticated by: [id number] Y Date: 03/06/2025 15:55
--- OUTSIDE RECORDS SUMMARY | 2025-03-06 13:11 | XMS_ITS | Encounter Summary ---
Author Organization [facility] Address [address] [place] [address] Care Team Providers Care Ergonomics Consultant Name Role Phone Colby Escobar MD Primary Care Provider [phone] Encounter Details Date Type Department Care Team (Late Contact Info) Description 12/17/2022 Abstract [facility] [address] [place] [address] Yancy Carmichael PA [address] [place] [address] Social History Tobacco Use Types [...] 02/10/2026 10:00 AM EDT Office Visit [facility] [address] [place] [phone] Yancy Carmichael PA [address] [place] [address] documented as of this encounter Visit Diagnoses Not on filedocumented in this encounter Care Teams Ergonomics Consultant Relationship Specialty Start Date End Date Colby Escobar MD [address] [place] [address] PCP - General Family Medicine 07/21/23 documented as of this encounter
--- OUTSIDE RECORDS SUMMARY | 2025-03-06 13:11 | XMS_ITS | Encounter Summary ---
Author Organization [facility] Address [address] [place] [address] Care Team Providers Care Legal Practice Manager Name Role Phone Yaneth Lewis MD Primary Care Provider [facility] Encounter Details Date Type Department Care Team (Late st Contact Info) Description 06/19/2014 Post-op Telephone [facility] General Surgery [address] [place], [place] [phone] Akilah Byrd RN Social History Tobacco Use [...] on filedocumented in this encounter Care Teams Legal Practice Manager Relationship Specialty Start Date End Date Yaneth Lewis MD [address] [place] [address] PCP - General 06/05/14 documented as of this encounter
--- OUTSIDE RECORDS SUMMARY | 2025-03-06 13:11 | XMS_ITS | Encounter Summary ---
Author Organization [facility] Address [address] [place] [address] Care Team Providers Care Electric Frying Pan Repairer Name Role Phone Colby Escobar MD Primary Care Provider [phone] Encounter Details Date Type Department Care Team (Late st Contact Info) Description 11/01/2023 Orders Only [facility] [address] [place] [address] Destiny Doss MA Social History Tobacco Use [...] [facility] [address] [place] [phone] Yancy Carmichael PA [address] [address] documented as of this encounter Visit Diagnoses Not on filedocumented in this encounter Care Teams Electric Frying Pan Repairer Relationship Specialty Start Date End Date Colby Escobar MD [address] [place] [address] PCP - General Family Medicine 07/21/23 documented as of this encounter
--- OUTSIDE RECORDS SUMMARY | 2025-03-06 13:11 | XMS_ITS | Clinical Summary ---
Author Organization [facility] Address [address] [place], [place] [id number] Care Team Providers Care Landscape Architecture Professor Name Role Phone Yaneth Lewis MD Primary Care Provider [place] CNP Unavailable Allergies Active Allergy Reactions Criticality Noted Date [...] Team Description 01/17/2025 Results Follow-Up Gastroenterology [address] [id number] Jaclyn Andrews APRN.CAR REFINISHER Results 01/10/2025 1:01 PM EDT Anesthesia Event Gastroenterology [address] [place] [phone] Luis Quick MD 01/10/2025 11:47 AM EDT - 01/10/2025 11:59 PM EDT Hospital Encounter Gastroenterology [address] [place] [phone] Vicky Downing MD Eosinophilic esophagitis [K20.0] Discharge Disposition: Home 01/10/2025 Travel 01/03/2025 GI Preprocedure Call Gastroenterology [address] [place] [address] Josefina Cheema RN from Last [...] is lower risk 8 10/16/2024 Data from: https://www.neighborhoodatlas.[facility]/. Last address used for calculation [address] 10/16/2024 Comments No [...] AM EDT Appointment Gastroenterology [address] [place] [address] Vicky Downing MD [address] [place] [address] Eosinophilic esophagitis [K20.0] 05/03/2025 11:00 AM EDT Office Visit Gastroenterology [address] [address] Jaclyn Andrews, [place].CAR REFINISHER [address] [place] [address] esophageal tumor Health Maintenance Due Date Last [...] EDT) Case Report Surgical Pathology Report Case: [id number] Authorizing Provider: Vicky Downing MD Collected: 01/10/2025 01:24 PM Ordering Location: Gastroenterology Received: 01/10/2025 04:46 PM Pathologist: Leonid Garcia MD Specimens: A) - Esophagus, Biopsy, r/o polynoma B) - Esophagus, Biopsy, r/o EOE C) - Esophagus, Biopsy, r/o EOE 01/14/2025 11:59 AM EDT [facility] FINAL DIAGNOSIS A. Esophagus, polyp, biopsy: [...] per high-power field). 01/14/2025 11:59 AM EDT [facility] at 1159 EDT Gross Description A. [...] 2025 8:35 PM Gross examination performed at [facility], [address] [place] [address], [place] [address] 01/14/2025 11:59 AM EDT [facility] Performing Lab Diagnostic interpretation performed at: [facility], [address] [place] [address] CLIA# [id number] Tanyard Worker: Rogelio Levine MD 01/14/2025 11:59 AM EDT [facility] Disclaimer Laboratory Developed Test (LDT) Disclaimer: Performance characteristics of immunohistochemical , immunofluorescent, and chromogenic in-situ hybridization tests have been determined by the performing laboratory within [facility]'s [facility] Medicine Department ([facility], [facility], [facility], [facility], [facility], [facility], or [facility]) in a manner consistent with CLIA requirements. One or more of these tests may not have been cleared or approved by the FDA. [facility] is regulated under CLIA as qualified to perform high-complexity testing. These tests are used for clinical purposes. These should not be regarded as investigational or for research. Positive and negative controls stain appropriately. 01/14/2025 11:59 AM EDT [facility] Tissue SPECIMEN FROM ESOPHAGUS OBTAINED [...] Vicky Downing MD SURGICAL PATHOLOGY Final Result [facility] [address] [place] [address], [facility] [place] [address], * EGD - THERAPEUTIC, EUS, OR TUBE INTERVENTIONS (01/10/2025 12:57 PM EDT) Anatomical Region Laterality Modality Other 01/10/2025 12:5 7 PM EDT Narrative 01/10/2025 1:35 PM EDT A31 Gastrointestinal Endoscopy Patient Name: Tarah Temple Procedure Date: 01/10/2025 12:57 PM Date of : 1950 Admit Type: Outpatient Age: 74 Room: A3 PROC 3 Gender: Female Note Status: Finalized Attending MD: Vicky Downing MD, [id number] Procedure: Upper GI endoscopy Indications: Dysphagia Providers: [...] referring provider. Procedure Code(s): --- Professional --- 69939, 22, Esophagogastroduodenoscopy, flexible, transoral; with removal of tumor(s), polyp(s), or other lesion(s) by snare technique 18707, Esophagogastroduodenoscopy, flexible, transoral; with insertion of guide wire followed by passage of dilator(s) through esophagus over guide wire 62078, 59,51, Esophagogastroduodenoscopy, flexible, transoral; with biopsy, single or multiple Diagnosis Code(s): --- Professional --- K22.89, Other specified disease of esophagus K44.9, Diaphragmatic hernia without obstruction or gangrene R13.10, Dysphagia, unspecified CPT copyright 2020 [employer]. All rights reserved. The codes documented in this report are preliminary and upon annual giving officer review may be revised to meet current compliance requirements. Attending Participation: I personally performed the entire procedure. Scope In: 1:09:54 PM Scope Out: 1:26:20 PM MD Vicky Ribera MD 01/10/2025 1:32:34 PM This report has been signed electronically by Vicky Downing MD Number of Addenda: 0 Note Initiated On: 01/10/2025 12:57 PM us Jaclyn Tarangoon MANAGER HEAVY DUTY.CAR REFINISHER DIGESTIVE DISEASE Fin al Result * PT ED PATIENT INFORMATION (12/11/2024) 12/11/2024 Narrative AMISHA - 01/11/2025 Provider CHRIS your patient TARAH TEMPLE has not started their Amisha program, time has . Amisha program: PATIENT SAFETY INSTRUCTIONS FOR HEALTHCARE SETTINGS us Vicky Downing MD AMISHA Final Result Performing Organization Address [facility] Co de Phone Number AMISHA * PT ED DIGESTIVE DISEASE (12/11/2024) 12/11/2024 Narrative AMISHA - 01/11/2025 Provider CHRIS your patient TARAH TEMPLE has not started their Amisha program, time has . Amisha program: UPPER GI ENDOSCOPY (EGD) us Vicky Downing MD AMISHA Final Result AMISHA * (ABNORMAL) COMP METABOLIC PANEL (04/06/2004 5:32 PM EDT) Protein, Total 7.1 6.0 - 8.4 g/dL [facility] Albumin 4.2 3.5 - 5.0 g/dL [facility] Calcium 9.7 8.5 - 10.5 mg/dL [facility] Bilirubin, Total 0.4 0.0 - 1.5 mg/dL [facility] Alkaline Phosphatase 73 40 - 150 U/L [facility] AST 13 7 - 40 U/L [facility] Glucose 83 65 - 100 mg/dL [facility] BUN 8 8 - 25 mg/dL [facility] Creatinine 0.8 0.7 - 1.4 mg/dL [facility] Sodium 139 132 - 148 mmol/L [facility] Potassium 4.0 3.5 - 5.0 mmol/L [facility] Chloride 102 98 - 110 mmol/L [facility] CO2 33(A) 24 - 32 mmol/L [facility] Anion Gap 4 0 - 15 mmol/L [facility] ALT 9 0 - 45 U/L [facility] Blood specimen (specimen) BLOOD SPECIMEN / Unknown 04/06/2004 5:32 PM EDT [facility] Final Result [facility] [address] [place] [address] from Last 3 Months or Most Recently Relevant to Health Maintenance Insurance [employer] Care Teams Landscape Architecture Professor Relationship Specialty Start Date End Date Yaneth Lewis MD [address] [facility] [place] [address] PCP - General 02/10/04 [place], GERMAINE [address] [facility] [address] [place] [address] Family Medicine 01/22/25
--- OUTSIDE RECORDS SUMMARY | 2025-03-06 13:11 | XMS_ITS | Clinical Summary ---
Author Organization [facility] Address [address] [facility]. [place] [phone] Phone Care Team Providers Care Tool Clerk Name Role Phone Unavailable Primary Care Provider [...]
--- OUTSIDE RECORDS SUMMARY | 2025-03-06 13:11 | XMS_ITS | Patient Health Record ---
Author Organization [facility] Address [address] [place] [address] Care Team Providers Care Pest Control Pilot Name Role Phone PCP, NO Primary Care Provider Cullen Tinajero Unavailable [phone] Self, Referral Unavailable Unavailable Reason For Referral [...] Problem Status W/U Status Risk Notes Problem [id number] Left hip pain (M25.552) Active confirmed Problem Localized, primary osteoarthritis of the pelvic region and thigh (981519451) Unilateral primary osteoarthritis, left hip (M16.12) Active confirmed Problem [id number] Greater trochanteric bursitis of left hip (M70.62) Active confirmed Encounters Encounter Location Date Provider Diagnosis [facility] [address] [place] [address] 04/30/2024 Cullen Cr Greater trochanteric bursitis of left hip M70.62 [facility] [address] [place] [address] 06/11/2024 Cullen Cr Unilateral primary osteoarthritis, left hip M16.12 ; Left hip pain M25.552 and Greater trochanteric bursitis of left hip M70.62 [facility] [address] [place] [address] [place] [address] 10/01/2024 Cullen Cr Greater trochanteric bursitis of [...] Order Date SCC- HIP W/ PELVIS, LEFT [id number] Insurance Providers Payer Name Payer Address Payer Phone Subscriber Number Group Number Insured Name Patient Relationship to Insured Coverage Start Date Coverage End Date Medicare [employer] [address] [address] [place] [address] [phone] [id number] DEDRA GONGORA Self - patient is the insured
--- OUTSIDE RECORDS SUMMARY | 2025-03-06 13:11 | XMS_ITS | Clinical Summary ---
Author Organization [facility] Address [address] [place] [address] Care Team Providers Care Fuel System Maintenance Worker Name Role Phone Yaneth Lewis MD Primary [...] 8:48 AM 06/18/2014 2:42 PM Care Teams Fuel System Maintenance Worker Relationship Specialty Start Date End Date Yaneth Lewis MD [address] [place] [address] PCP - General 06/05/14
--- OUTSIDE RECORDS SUMMARY | 2025-03-06 13:18 | XMS_ITS | CCD ---
Author Organization [facility] Care Team Providers Care Fiberglass Tube Molder Name Role Phone RAUL LEWIS Primary Care [...] Consulting Unavailable RAUL LEWIS Primary Care Physician [phone] Colby Escobar. Primary Care Physician JACQUELINE HERNANDEZ Primary Care Physician [phone] Antonio AMBRIZ Attending Unavailable Antonio AMBRIZ Attending Unavailable Colby Escobar. Attending Unavailable Colby Escobar. Attending Unavailable Colby Escobar Attending Unavailable JACQUELINE HUFF Attending Unavailable Antonio AMBRIZ Attending Unavailable Antonio AMBRIZ Attending Unavailable Antonio AMBRIZ Admitting Unavailable Antonio AMBRIZ Referring Unavailable Colby Escobar MD Primary Care Provider Jacqueline Hernandez APRN Primary Care Provider Alicia Wilks MD Attending Provider Asajacob, Imad Admitting Unavailable Lashaun Imjacob Attending Unavailable Jacqueline Hernandez Primary Care Unavailable Raul Lewis MD Primary Care Provider RAUL LEWIS EDWARD Primary Care Unavailable LUIS CARSON Attending UnavailJACLYN Acosta Referring Unavailable WENDY RAUL ALANIZ Primary Care Unavailable JACLYN STEWART Attending Unavailable Jacqueline Hernandez APRN Primary Care Provider Lake Manzo APRN Attending Provider Jacqueline Hernandez APRN Attending Provider Jacqueline Hernandez APRN Primary Care Provider Lake Manzo APRN Attending Provider FATUMA PHIPPS Attending Unavailable FATUMA PHIPPS Attending Unavailable FATUMA PHIPPS Attending Unavailable SAMUEL SHORE Attending Unavailable YANCY CARR Attending Unavailable Allergies Allergy Classification Reported Allergen(s) Allergy Type Date of Onset Reaction(s) Facility (20 sources) Iodine; Translations: [iodine] Drug Allergy 04-06-20 04 Unknown (qualifier value), Anaphylactic shock, Anaphylaxis [facility] (20 sources) Latex; Translations: [latex] Propensity to adverse reactions to substance 12-21-19 23 Unknown (qualifier value), Hives [facility] (1 source) Iodine (And Iodine Containting Drugs) Drug allergy (disorder) [facility] Repository (2 sources) Acetaminophen; Translations: [acetaminophen] Drug Allergy Unknown (qualifier value) [facility] (1 source) Acetaminophen / Codeine; Translations: [Tylenol with Codeine] Drug Allergy [facility] Repository (1 source) Naproxen; Translations: [Naprosyn] Drug Allergy [facility] Repository (12 sources) Acetaminophen Drug Allergy 07-21-19 24 [facility] (14 sources) Other; Translations: [OTHER] Propensity to adverse reactions 04-06-20 04 [facility] (1 source) Iodine Drug Allergy 10-04-19 25 [facility] Repository Medications Current Medications Medication Drug Class(es) Dates Sig (Normalized) Sig (Original) [id number] 200 actuat albuterol 0.09 mg/actuat metered dose inhaler (20 sources) beta2-Adrenergic Agonist Start: 04-06-2023 take 2 puff(s) by mouth every four hours Proventil HFA 90 mcg/inh Aerosol 2 puff(s), Oral, q4hr Shortness of breath or wheezing, 1 kit(s), Refill(s) 0, [facility] [id number], 163, cm, 04/06/23 15:43:00 EDT, Height/Length Dosing, [...] DAILY, # 90 tab(s), Refills(s) 0, Pharmacy: [facility] [id number], 163, cm, 04/06/23 15:43:00 EDT, Height/Length Dosing, 107, kg, 04/06/23 15:43:00 EDT, Weight Dosing Start Date: 06/01/23 Status: Ordered Start: 02-23-2023 take 1 tablet by raf th once daily atorvastatin 40 mg Tab 40 mg = 1 tab(s), Oral, Daily, # 90 tab(s), Refills(s) 0, Pharmacy: [facility] [id number], 165, cm, 01/11/23 9:47:00 EDT, Height/Length Dosing, 115, kg, 01/11/23 9:47:00 EDT, Weight Dosing Start Date: 02/23/23 Status: Ordered Start: 05-03-2022 take 1 tablet by [facility] once daily atorvastatin 40 mg Tab 40 [...] day(s), # 14 cap(s), Refills(s) 0, Pharmacy: [facility] [id number], 165, cm, 02/15/24 13:14:00 EDT, Height/Length Dosing, 106, kg, 02/15/24 13:14:00 EDT, Weight Dosing Start Date: 02/15/24 Stop Date: 02/22/24 Status: Ordered Start: 01-19-2022 take 1 capsule by [facility] once daily Keflex 500 mg Cap 500 mg = 1 cap(s), Oral, Daily, Take 1 tab day before procedure and 1 after procedure, # 2 cap(s), Refills(s) 0, Pharmacy: [facility] [id number], 165, cm, 01/19/22 9:47:00 EDT, Height/Length Dosing, 115, kg, 01/19/22 9:47:00 EDT, Weight Dosing Start Date: 01/19/22 Status: Ordered Start: 05-07-2021 take 1 capsule by [facility] twice daily Keflex 500 mg Cap 500 mg = 1 cap(s), Oral, BID, pt to start day prior to procedure., # 14 cap(s), Refills(s) 0, Pharmacy: [place] [id number], 165, cm, 05/07/21 10:07:00 EDT, Height/Length Dosing, 115, kg, 05/07/21 10:07:00 EDT, Weight Dosing Start Date: 05/07/21 Status: Ordered ciclopirox 7.7 mg/ml topical cream (9 sources) Start: 06-12-2024 ciclopirox top ical 0.77% cream 1 kylie, Topical, BID, Refill(s) 0 Start Date: 06/12/24 Status: Ordered Start: 10-26-2022 ciclopirox top ical 0.77% cream 1 kylie, Topical, BID, 30 gram, Refill(s) 3, [facility] [id number], 165.1, cm, 09/29/22 10:13:00 EDT, Height/Length Dosing, 109.8, kg, 09/29/22 10:13:00 EDT, Weight Dosing Start Date: 10/26/22 Status: Ordered ibuprofen 600 mg oral tablet (15 sources) Nonsteroidal Anti-inflammatory Drug Start: 04-14-2023 take 1 tablet by mouth every six hours as needed for pain ibuprofen 600 mg Tab 600 mg = 1 tab(s), Oral, q6hr, PRN Pain/Fever, # 30 tab(s), Refills(s) 0, Pharmacy: [facility] [id number], 163, cm, 04/06/23 15:43:00 EDT, Height/Length Dosing, [...] Daily, # 30 tab(s), Refills(s) 2, Pharmacy: [facility] [id number], 165, cm, 11/12/21 11:38:00 EDT, Height/Length Dosing, [...] pain, # 12 tab(s), Refills(s) 0, Pharmacy: [facility] [id number], 165, cm, 10/06/23 11:01:00 EDT, Height/Length Dosing, [...] DAILY, # 90 tab(s), Refills(s) 0, Pharmacy: [facility] [id number], 165, cm, 10/06/23 11:01:00 EDT, Height/Length Dosing, [...] Daily, # 90 tab(s), Refills(s) 1, Pharmacy: [facility] [id number], 163, cm, 04/06/23 15:43:00 EDT, Height/Length Dosing, 107, kg, 04/06/23 15:43:00 EDT, Weight Dosing Start Date: 05/10/23 Status: Ordered Start: 10-29-2022 take 1 tablet by raf once daily levothyroxine 25 mcg (0.025 mg) Tab 25 mcg = 1 tab(s), Oral, Daily, # 90 tab(s), Refills(s) 1, Pharmacy: [facility] [id number], 165.1, cm, 09/29/22 10:13:00 EDT, Height/Length Dosing, [...] Reference Range Facility No Panel Informationon 02-11 [facility] ANES POSTPROC EVALon 025 ANES POSTPROC EVAL HNO ID: [id number] Author: LUIS CARSON MD Service: ? Author Type: Anesthesiologist Type: Anesthesia Postprocedure Evaluation Filed: 01/10/2025 14:35 Note Text: POST ANESTHESIA EVALUATION NOTE : 1950 Procedure Summary Date: 01/10/25 Room / Location: Gastroenterology Anesthesia Start: 1301 Anesthesia Stop: 1338 Procedure: EGD - THERAPEUTIC, EUS, OR TUBE INTERVENTIONS Diagnosis: Eosinophilic esophagitis Esophageal lesion (Dysphagia) Scheduled Providers: Vicky Downing MD; Ranjana Arceo APRN.OUTREACH TEAM MEMBER; Luis Carson MD Responsible Provider: Luis Carson [...] January 10, 2025 TIME: 2:35 PM CSN: [id number] Normal [facility] ANES PRE-OPon 01-10-2025 ANES PRE-OP HNO ID: [id number] Author: LUIS CARSON MD Service: ? Author Type: Anesthesiologist Type: Anesthesia Preprocedure Evaluation Filed: 01/10/2025 12:13 Note Text: ANESTHESIOLOGY DAY OF SURGERY NOTE : 1950 Procedure Information Date/Time: 01/10/25 1300 Scheduled providers: Vicky Downing MD; Ranjana Arceo APRN.OUTREACH TEAM MEMBER; Luis Carson MD Procedure: EGD - THERAPEUTIC, [...] and consent discussed: yes. Patient / Responsible Libertarian agrees to proceed: yes Patient / Surrogate [...] January 10, 2025 TIME: 12:12 PM CSN: [id number] Normal [facility] EGD Study observation Quinton ram 01-10-2025 A31 Gastrointestinal Endoscopy Patient Name: Tarah Briseno Procedure Date: 01/10/2025 12:57 PM Date of : 1950 Admit Type: Outpatient Age: 74 Room: [address] Gender: Female Note Status: Finalized Attending MD: Vicky Downing MD, [id number] Procedure: Upper GI endoscopy Indications: Dysphagia Providers: [...] Return t (more content not included)... PROVATION [facility] Radiology Study observation (narrative) [facility] NURSING PROGon 01-10-2025 NURSING PROG HNO ID: [id number] Author: ARBEN DESOUZA RN Service: Nursing Author [...] Electronically Signed By: Arben Desouza RN Normal [facility] NURSING PROG HNO ID: [id number] Author: GENEVIEVE JARA RN Service: ? Author [...] GENEVIEVE JARA RN In Department: GASTROENTEROLOGY Normal [facility] Pathology biopsy report Ed (Tiss)on 01-10-2025 AP DISCLAIMER Normal [facility] Comment on above: Order Comment: Rozina kauffman Type: TISSUE SPECIMEN Ordering Facility: [facility] Address: [address] [place] [address] Result Comment: Moriah kirk Developed Test (LDT) Disclaimer: Performance characteristics of immunohistochemical, immunofluorescent, and chromogenic in-situ hybridization tests have been determined by the performing laboratory within [facility]'s [facility] Pathology and Laboratory Medicine Department ([facility], [facility], [facility], [facility], [facility], [facility], or [facility]) in a manner consistent [...] appropriately. Performed By: #### 6 6121-5 #### [facility] CLIA [id number] [address] [place] [address] OF [facility] CLIA [id number] [address] [place] [address] OF [place] CASE REPORT Normal [facility] Comment on above: Order Comment: Rozina kauffman Type: TISSUE SPECIMEN Ordering Facility: [facility] Address: [address] [place] [address] Result Comment: Surg ica Pathology Report Case: [id number] Authorizing Provider: Vicky Downing MD Collected: 01/10/2025 01:24 PM Ordering Location: Gastroenterology Received: 01/10/2025 04:46 PM Pathologist: Leonid Garcia MD Specimens: A) - Esophagus, Biopsy, r/o polynoma B) - Esophagus, Biopsy, r/o EOE C) - Esophagus, Biopsy, r/o EOE Performed By: #### 6 6121-5 #### [facility] CLIA [id number] [address] [place] [address] [place] [facility] CLIA [id number] [address] [place] [address] [place] FINAL DIAGNOSIS Normal [facility] Comment on above: Order Comment: Speci men Type: TISSUE SPECIMEN Ordering Facility: [facility] Address: [address] [place] [address] Result Comment: A. E sophagus, polyp, biopsy: [...] EDT Performed By: #### 6 6121-5 #### [facility] CLIA [id number] [address] [place] [address] [place] [facility] CLIA [id number] [address] [place] [address] STATES OF [place] FINAL PERFORMING LAB Normal [facility] Comment on above: Order Comment: Speci men Type: TISSUE SPECIMEN Ordering Facility: [facility] Address: [address] [place] [address] Result Comment: Diag nostic interpretation performed at: [facility], [address] [place] [address] CLIA# [id number] Traditional Chinese Herbalist: Rogelio Levine MD Performed By: #### 6 6121-5 #### [facility] CLIA [id number] [address] [place] [address] [place] [facility] CLIA [id number] [address] [place] [address] [place] GROSS DESCRIPTION Normal [facility] Comment on above: Order Comment: Speci men Type: TISSUE SPECIMEN Ordering Facility: [facility] Address: [address] [place] [address] Result Comment: A. E sophagus, Biopsy Received [...] 2025 8:35 PM Gross examination performed at [facility], [address] [place] [address] Performed By: #### 6 6121-5 #### [facility] CLIA [id number] [address] [place] [address] LAB CLIA [id number] [address] [place] [address] Upper GI endoscopyon 06-26-2 025 Upper GI endoscopy A31 Gastrointestinal Endoscopy Patient Name: Tarah Briseno Procedure Date: 01/10/2025 12:57 PM Date of : 1950 Admit Type: Outpatient Age: 74 Room: [place] [address] Gender: Female Note Status: Finalized Attending MD: Vicky Downing MD, [id number] Procedure: Upper GI endoscopy Indications: Dysphagia Providers: [...] referring provider. Procedure Code(s): --- Professional --- 57652, 22, Esophagogastroduodenoscopy, flexible, transoral; with removal of tumor(s), polyp(s), or other lesion(s) by snare technique 72821, Esophagogastroduodenoscopy, flexible, transoral; with insertion of guide wire followed by passage of dilator(s) through esophagus over guide wire 22292, 59,51, Esophagogastroduodenoscopy, flexible, transoral; with biopsy, single or multiple Diagnosis Code(s): --- Professional --- K22.89, Other specified disease of esophagus K44.9, Diaphragmatic hernia without obstruction or gangrene R13.10, Dysphagia, unspecified CPT copyright 2020 [employer]. All rights reserved. The codes documented in this report are preliminary and upon senior ui web developer review may be revised to baljinder (more content not included)... Normal [facility] NURSING PROGon 01-03-2025 NURSING PROG HNO ID: [id number] Author: AWA LEMON RN Service: ? Author [...] have family/friend present for procedure transport home:Patient/patient account manager sales representative was told that if they [...] area. Any barriers to Patient learning: Patient/Patient Nut Cracker responded appropriately on phone. Type of instruction given: Verbal by telephone contact. KATIA Al [facility] No Panel Informationon 10-18 [facility] 10-03-2024 L ------- Specimen: [id number] Received: 10/03/24 Status: THEODORA Love Num: [id number] Spec Type: Surgical Subm Dr: Alicia Wilks MD Tissues: A Esophagus Biopsy (ESOPH LESION) B Esophagus Biopsy (ESOPH BX) Procedures: Monroe PETERSON/José L4/2 Age/ Patient Sex Location Account Attending Physician Tarah Briseno 74/F [id number] Alicia Wilks MD SPEC NUM: [id number] RECD: 10/03/24 STATUS: THEODORA LOVE NUM: [id number] CRYSTAL: 10/03/[address] [facility] [address]: Alicia Wilks MD ENTERED: 10/03/[address] [facility] [address]: SPEC TYPE: Surgical DEPT: S ENTERED BY: [id number] RECV BY: [id number] ORDERED: HE/4, Gross/Micro L4/2 ORDERED: HE/4, Gross/Micro [...] submitted in a single cassette. (1, ns, [id number] A) LEONELA Specimen: [id number] Received: 10/03/24 Status: THEODORA Love Num: [id number] Spec Type: Surgical Subm Dr: Alicia Wilks MD Tissues: A Esophagus Biopsy (ESOPH LESION) B Esophagus Biopsy (ESOPH BX) Procedures: HE/4, Gross/Micro L4/2 Patient: Tarah Briseno [id number] (Continued) Specimen: [id number] Received: 10/03/24 (Continued) Gross Description (Continued) Signed (signature on file) Phillip Sorensen Jr., MD 10/04/24 1142 Specimen: [id number] Received: 10/03/24 Status: THEODORA Love Num: [id number] Spec Type: Surgical Subm Dr: Alicia Wilks MD Tissues: A Esophagus Biopsy (ESOPH LESION) B Esophagus Biopsy (ESOPH BX) Procedures: ALKA/Pippa, Gross/Micro L4/2 Patient: Tarah Briseno [id number] (Continued) Specimen: [id number] Received: 10/03/24 (Continued) Gross Description (Continued) Part B is received in formalin labeled with the patients name, date of , and esophagea l BX are 3 pale rodas, focally erythematous, feathery, 0.2, 0.2 and 0.3 cm in greatest dimension tissue bits. The specimen is entirely submitted in a single cassette. (1, ns, [id number] B) JG Specimen: [id number] Received: 10/03/24 Status: THEODORA Love Num: [id number] Spec Type: Surgical Subm Dr: Alicia Wilks MD Tissues: A Esophagus Biopsy (ESOPH LESION) B Esophagus Biopsy (ESOPH BX) Procedures: HE/4, Gross/Micro L4/2 Patient: Tarah Briseno [id number] (Continued) Signed (signature on file) Phillip Sorensen Jr., MD 10/04/24 1142 Normal [facility] No Panel Informationon 09-12 [facility] No Panel Informationon 08-13 [facility] Urology Office/Clinic Noteon 06-12-2024 Urology Office/Clinic Note [...] E&M of Est. Patient Low 20-29 Min 27268 2. Other urethral stricture, female (N35.82: Other urethral stricture, female) S/p Cysto/UD 07/07/2022. Urethra normal during recent cysto (Botox) on 04/09/24. Ordered: E&M of Est. Patient Low 20-29 Min 19000 3. Asymptomatic microscopic hematuria (R31.21: Asymptomatic microscopic hematuria) IO UA shows small hgb, trace leuks. No UTI sx. No b.t. on recent scope. No gross hematuria. Ordered: E&M of Est. Patient Low 20-29 Min 72023 Urnls Dip Stick Auto w/o Microscopy POC 22122 Follow-up With When Contact Information [facility] Additional Instructions: Only if needed/new problems arise. [...] virus vaccine, inactivated 03/24/2023 Recorded SARS-CoV-2 (COVID-19) mRNAMUL.ORD![id number] 03/24/2023 Recorded SARS-CoV-2 (COVID-19) mRNAMUL.ORD![id number] 07/19/2022 Recorded influenza virus vaccine, inactivated 03/30/2022 [...] 04-09-2024 Inpatient Patient Summary Inpatient Patient Summary [place] [id number] Clinical Summary Person Information Name: TARAH BRISENO Age: 73 Years : 1950 Sex: Female PCP: JACQUELINE HERNANDEZ CNP Marital Status: Race: White Ethnicity: Non- or Language: Togolese Visit Id: Visit Reason: URINARY INCONTINENCE Speciality: Acuity: Enc Type: Outpatient Med Service: Surgery Arrival: 04/09/2024 12:44:33 Discharge: Dispo Type: Address: [address] [place] [id number] Provider Notes: Diagnosis: Problems Active Greater trochanteric [...] up: With: Address: When: Antonio AMBRIZ [address] [facility], [address], [place] [address] Business (1) Comments: Please make a follow up appointment with one of our nurse practitioners or physician assistants within two months with a bladder scan to assess your bladder emptying. Have a great day! Patient Education Information: EU - Cystoscopy with Botox Injection Discharge Instructions (Custom) [facility] Main OR Intraoperative Recor don 04-09-2024 Main OR Intraoperative Record Main OR Intraoperative Record IntraOp Document Type FTURO Summary Primary Physician: Antonio AMBRIZ MD Finalized Date/Time: 04/09/24 13:46:51 Pt. Name: TARAH BRISENO/Sex: 1950 Female Med Rec #: [id number] Physician: Antonio AMBRIZ MD Financial #: [id number] Pt. Type: O Room/Bed: / Admit/Disch: 04/09/24 12:44:33 - Institution: Case Times FTURO Entry 1 Patient Times In Room 04/09/24 13:26:00 Out Room 04/09/24 13:40:00 Procedure Times Start 04/09/24 13:28:00 Stop 04/09/24 13:35:00 Anesthesia Times Last Modified By: Jess SALINAS, Mendy Alonzo 04/09/24 13:35:38 General Comments: BOTOX LOT#: [id number], EXP DATE: 05/2026 BOTOX LOT# [id number], EXP. DATE: 05/2026 -Billy BOCANEGRA RN Case Attendance FTURO Entry 1 Entry 2 Entry 3 Case Attendee MADELIN CORDOBA, Antonio Bocanegra RN, Jozef Hudson Role Performed Surgeon - Primary Metal Engraver - Primary Scrub - Primary Time In [...] By: Mendy Bocanegra RN 04/09/24 13:46 Normal [facility] Main OR Preoperative Recordo n 04-09-2024 Main OR Preoperative Record Main OR Preoperative Record Holding Area Document Type FTURO Summary Primary Physician: Antonio AMBRIZ MD Finalized Date/Time: 04/09/24 13:07:47 Pt. Name: TARAH BRISENO/Sex: 1950 Female Med Rec #: [id number] Physician: Antonio AMBRIZ MD Financial #: [id number] Pt. Type: O Room/Bed: / Admit/Disch: 04/09/24 [...] No Pain Comment: 0/10 Skin Integrity Intact, Branford, Warm, & Dry Vitals - EU Blood Pressure 118/79 Pulse 63 bpm Respirations 16 br/min SPO2 97 % Additional Other (See Comment) Specimens Comment Urine specimen negative Specimens Collected RN Reviewed Yes Last Modified By: Georgina Palacios RN 04/09/24 13:07:42 Finalized By: Georgina Palacios RN Document Signatures Signed By: Georgina Palacios RN 04/09/24 13:07 Normal [facility] Operative Reporton Operative Report Operative Report Patient: TARAH BRISENO Age: 73 years Sex: Female : 1950 Associated Diagnoses: None Author: Antonio AMBRIZ MD Procedure Operative Information Details: Date/ Time: 04/09/2024 13:38:00. Pre-Op Dx: Mixed stress and urge urinary incontinence ([id number] N39.46, Billing Diagnosis, Medical), Overactive bladder ([id number] N32.81, Billing Diagnosis, Medical). Post-Op Dx: Same. [...] two months to check PVR> . Normal [facility] Comment on above: Result Comment: Elec tronically Signed By: Antonio AMBRIZ MD\.br\Date and Time Signed: 04/09/24 13:40 EDT Outpatient Surgery Discharge Instructionon 04-09-2024 Outpatient Surgery Discharge Instruction Outpatient Surgery Discharge Instruction [address] [address] Patient Discharge Instructions PERSON INFORMATION [...] With: Address: When: [address], [address], [facility] [address] [place] [id number] Business (1) Comments: Please make a follow [...] to serve you. Thank you for choosing [facility] Normal [facility] Ambulatory Visit Summaryon 0 02-15-2024 Ambulatory [...] Follow-Up Appointments Tuesday 1:00 PM EDT Where: [facility] [address] [address]- You Need to Schedule the Following Appointments Follow Up with MADELIN CORDOBA, JEN Callahan When: Comments: Sched Botox Where: [address] [address]- Medications What How Much When Why Instructions [...] physically inactive. (more content not included)... Normal [facility] Urology Office/Clinic Noteon 02-15-2024 Urology Office/Clinic [...] Contact Information Antonio AMBRIZ MD, URL [address] [place] [address]- Additional Instructions: Sched Botox Patient Education [...] with voice recognition artificial intelligence software, specifically SoundSenasation, Rewalon and or Roamer. Substitutions may have occurred due to the inherent limitations of voice recognition and artificial intelligence software. Problem List/Past Medical History Ongoing Asthma Asymptomatic microscopic hematuria Candidia (more content not included)... [facility] Comment on above: Result Comment: Elec tronically Signed By: Antonio AMBRIZ MD\.br\Date and Time Signed: 02/15/24 13:31 EDT\.br\Electronically Co-Signed By: Donnell Paredes\.br\Date and Time Co-Signed: 02/15/24 13:27 EDT Physician Referralon 024 Physician Referral [id number]#[id number] Normal [facility] Ambulatory Visit Summaryon 0 10-06-2023 Ambulatory [...] AM EDT With: Colby Escobar MD Where: [facility] [place] Invalid Interpretation Code [address], [address] [place] [address]- \.br\ Tuesday 1:00 PM EDT \.br\ With:\.br\ Where: [facility] ED Note-Physicianon 10-06-19 ED Note-Physician [id number]#[id number] Normal [facility] Medicine Office/Clini c Noteon 10-06-2023 Family Medicine Office/Clinic Note HPI Staff Tarah is a 73 year old female presenting for Er follow up ER followup: Hospital: [place] Visit date: 10/02/23 Symptoms the patient presented [...] pain, # 12 tab(s), Refills(s) 0, Pharmacy: [facility] [id number], 165, cm, 10/06/23 11:01:00 EDT, Height/Length Dosing, 106.8, kg, 10/06/23 11:01:00 EDT, Weight Dosing 2. BMI 39.0-39.9,adult (Z68.39: Body mass index [BMI] 39.0-39.9, adult) - BMI education given Ordered: tramadol, 50 mg = 1 tab(s), Oral, q4hr, PRN for pain, # 12 tab(s), Refills(s) 0, Pharmacy: [facility] [id number], 165, cm, 10/06/23 11:01:00 EDT, Height/Length Dosing, [...] pain, # 12 tab(s), Refills(s) 0, Pharmacy: [facility] [id number], 165, cm, 10/06/23 11:01:00 EDT, Height/Length Dosing, [...] pain, # 12 tab(s), Refills(s) 0, Pharmacy: [facility] [id number], 165, cm, 10/06/23 11:01:00 EDT, Height/Length Dosing, [...] 21 tab(s), Refills(s) 0, Pharmacy: [facility] [id number], 165, cm, 10/06/23 11:01:00 EDT, Height/Length Dosing, [...] Colonoscopy ( (more content not included)... Normal [facility] Comment on above: Result Comment: Elec [...] numbers. This can be done either in Tog[place]ese ([place] or metric measurements. Note that charts and online BMI calculators are available to help you find your BMI quickly and easily without having to do these calculations yourself. To calculate your BMI in Tog[place]ese ([place] measurements: 1. Measure your weight in [...] for Disease Control and Prevention: www.cdc.gov ? [place] Heart Association: www.heart.org ? National Heart, Lung, and Blood [place]: www.nhlbi.nih.gov Summary ? Body mass index (BMI) is a number that is calculated from a person's weight and height. ? BMI may help estimate how much of a person's weight is composed of fat. BMI can help identify those who may be at higher risk for certain medical problems. ? BMI can be measured using Togolese measurements or metric measurements. ? BMI charts are used to identify whether you are underweight, normal weight, overweight, or obese. This information is not intended to replace advice given to you by your health care provider. Make sure you discuss any questions you have with your health care provider. Document Revised: 03/26/2020 Document Reviewed: 02/01/2020 [email or web address] Patient Education ? 2022 [employer] [facility] [id number] Normal [facility] Ambulatory Visit Summaryon 0 07-27-2023 Ambulatory Visit Summary TARAH BRISENO :1950 Visit Date:07/27/2023 Ambulatory Visit Instructions Your Diagnosis Mixed incontinence Other urethral stricture, female Asymptomatic microscopic hematuria Tests Performed Urnls Dip Stick Auto w/o Microscopy POC 92611 Your Care Team Attending Physician - MADELIN [...] Antonio AMBRIZ MD Where: [facility] [id number] \.br\ You Need to Schedule the Following Appointments\. br\ Follow Up with Antonio AMBRIZ MD, URL When: \.br\ Where:\.br\ [address] [place] [address] 3\.br\ [place] [address]-\.br\ \.br\ Medications\.b r\ What How Much When [...] Urnls Dip Stick Auto w/o Microscopy POC 78837 (07/27/2023)\. br\ Bilirubin Urine Dipstick - Negative\.br\ Blood Urine Dipstick - Trace-intact\. br\ Glucose Urine Dipstick - Negative\.br\ Ketones Urine Dipstick - Negative\.br\ Leukocytes Urine Dipstick - Negative\.br\ Nitrite Urine Dipstick - Negative\.br\ Protein Urine Dipstick - Negative\.br\ Specific [place] Urine Dipstick - 1.020\.br\ Urine Appearance Urine [...] or controlled breathing exercises.\.br \ ? \.br\ [facility] Patient Educationon 07-27-19 Patient Education Urology [...] stimulation). ? For women, using a medical operations supervisor to prevent urine leaks. This is a [...] urine. ? (more content not included)... Normal [facility] Urology Office/Clinic Noteon 07-27-2023 Urology Office/Clinic [...] with voice recognition artificial intelligence software, specifically [employer], [employer] and or Roamer. Substitutions may have occurred due to the [...] MD, URL [address] [address]- Additional Instructions: 6 months Patient Education Urinary [...] Cholecystectomy, Colon (more content not included)... Normal [facility] Comment on above: Result Comment: Elec tronically Signed By: Antonio AMBRIZ MD\.br\Date and Time Signed: 07/27/23 11:24 EST\.br\Electronically Co-Signed By: Aura Hernandez\.br\Date and Time Co-Signed: 07/27/23 11:20 EST CHEMISTRYOrdered By: SYSTEM SYSTEM on 05-10-2023 Cholesterol [Mass/Vol] 151 mg/dL Normal 120 - 200 mg/dL [facility] Remisol Cholesterol in HDL [Mass/Vol] 58 mg/dL [...] : DR RAUL LEWIS . Admission #: [id number] Family : Order #: [id number] CLICK HERE TO VIEW EXAM RADIOLOGY REPORT [...] cervical cancer at age 47. LOCATION: [facility] BREAST COMPOSITION: Scattered areas fibroglandular density. FINDINGS: [...] MD on 05/12/2022 at 11:25 Normal [facility] CBC AUTO DIFFon 03-31-2022 BASO # 0.0 103/ul Normal 0.0-0.1 [facility] Comment on above: Performed By: #### C BC #### [facility] [address] [place] [address] Dr. Altaf Hogue Basophils/100 WBC (Bld) 0.4 % Normal 0.2-2.0 [facility] Comment on above: Performed By: #### C BC #### [facility] [address] [place] [address] Dr. Altaf Hogue EO # 0.3 103/ul Normal 0.0-0.7 [facility] Comment on above: Performed By: #### C BC #### [facility] [address] [place] [address] Dr. Altaf Hogue Eosinophils/100 WBC (Bld) 4.4 % Normal 0.9-7.0 [facility] Comment on above: Performed By: #### C BC #### [facility] [address] [place] [address] Dr. Altaf Hogue Erythrocyte distribution width (RBC) [Ratio] 13.5 % Normal 11.0-15.0 [facility] Comment on above: Performed By: #### C BC #### [facility] [address] [place] [address] Dr. Altaf Hogue Hematocrit (Bld) [Volume fraction] 44.4 % Normal 36.0-48.0 [facility] Comment on above: Performed By: #### C BC #### [facility] [address] [place] [address] Dr. Altaf Hogue Hemoglobin (Bld) [Mass/Vol] 14.3 g/dL Normal 12.0-16.0 [facility] Comment on above: Performed By: #### C BC #### [facility] [address] [place] [address] Dr. Altaf Hogue IG # 0.02 10e3/ul Normal 0.00-0.03 [facility] Comment on above: Performed By: #### C BC #### [facility] [address] [place] [address] Dr. Altaf Hogue IG % 0.3 % Normal 0.0-0.5 [facility] Comment on above: Performed By: #### C BC #### [facility] [address] [place] [address] Dr. Altaf Hogue LYMPH # 2.2 103/ul Normal 1.2-3.8 [facility] Comment on above: Performed By: #### C BC #### [facility] [address] [place] [address] Dr. Altaf Hogue Lymphocytes/100 WBC (Bld) 28.8 % Normal 20.5-60.0 [facility] Comment on above: Performed By: #### C BC #### [facility] [address] [place] [address] Dr. Altaf Hogue MANUAL DIFF REQ NO Normal [facility] Comment on above: Performed By: #### C BC #### [facility] [address] [place] [address] Dr. Altaf Hogue MCH (RBC) [Entitic mass] 29.0 pg Normal 26.7-34.0 [facility] Comment on above: Performed By: #### C BC #### [facility] [address] [place] [address] Dr. Altaf Hogue MCHC (RBC) [Mass/Vol] 32.2 g/dL Normal 29.9-35.2 [facility] Comment on above: Performed By: #### C BC #### [facility] [address] [place] [address] Dr. Altaf Hogue MCV (RBC) [Entitic vol] 90.1 fL Normal 81.0-99.0 [facility] Comment on above: Performed By: #### C BC #### [facility] [address] [place] [address] Dr. Altaf Hogue MONO # 0.6 103/ul Normal 0.3-0.8 [facility] Comment on above: Performed By: #### C BC #### [facility] [address] [place] [address] Dr. Altaf Hogue Monocytes/100 WBC (Bld) 8.5 % Normal 1.7-12.0 [facility] Comment on above: Performed By: #### C BC #### [facility] [address] [place] [address] Dr. Altaf Hogue NEUT # 4.3 103/ul Normal 1.4-6.5 [facility] Comment on above: Performed By: #### C BC #### [facility] [address] [place] [address] Dr. Altaf Hogue Neutrophils/100 WBC (Bld) 57.6 % Normal 43.0-75.0 [facility] Comment on above: Performed By: #### C BC #### [facility] [address] [place] [address] Dr. Altaf Hogue Platelet mean volume (Bld) [Entitic vol] 9.7 fL Normal 9.5-13.5 [facility] Comment on above: Performed By: #### C BC #### [facility] [address] [place] [address] Dr. Altaf Hogue PLT 286 103/ul Normal 150-450 [facility] Comment on above: Performed By: #### C BC #### [facility] [address] [place] [address] Dr. Altaf Hogue RBC 4.93 106/ul Normal 4.20-5.40 [facility] Comment on above: Performed By: #### C BC #### [facility] [address] [place] [address] Dr. Altaf Hogue WBC 7.5 103/ul Normal 4.0-11.0 [facility] Comment on above: Performed By: #### C BC #### [facility] [address] [place] [address] Dr. Altaf Hogue FREE T3on 03-31-2022 FREE T3 2.39 pg/mlL Normal 2.18-3.98 [facility] Comment on above: Performed By: #### T SH, FT3, LIPID, CMP #### [facility] [address] [place] [address] Dr. Altaf Hogue FREE T4on 03-31-2022 Free T4 [Mass/Vol] 1.04 ng/dL Normal 0.76-1.46 [facility] Comment on above: Performed By: #### F T4 #### [facility] [address] [address] [address] Altaf Hogue LIPID PROFILEon 03-31-2022 CHOL-HDL RATIO NORM SEE BELOW Normal [facility] Comment on above: Result Comment: 3.3 - 4.4 LOW RISK 4.4 - 7.1 AVERAGE RISK 7.1 - 11.0 MODERATE RISK >11.0 HIGH RISK Performed By: #### T SH, FT3, LIPID, CMP #### [facility] [address] [address] [address] Altaf Hogue Cholesterol [Mass/Vol] 142 mg/dL Normal <=200 [facility] Comment on above: Performed By: #### T SH, FT3, LIPID, CMP #### [facility] [address] [address] [address] Altaf Hogue Cholesterol in HDL [Mass/Vol] 59 mg/dL Normal 40-60 [facility] Comment on above: Performed By: #### T SH, FT3, LIPID, CMP #### [facility] [address] [place] [address] Dr. Altaf Hogue Cholesterol in LDL [Mass/Vol] 64.2 mg/dL Normal [facility] Comment on above: Performed By: #### T SH, FT3, LIPID, CMP #### [facility] [address] [address] [address] Altaf Hogue Cholesterol.total/ Cholesterol in HDL [Mass ratio] 2.4 {ratio} Normal [facility] Comment on above: Performed By: #### T SH, FT3, LIPID, CMP #### [facility] [address] [place] [address] Dr. Altaf Hogue HDL NORMAL > or = 60 mg/dl - LO W CARDIOVASCULAR RISK <40 mg/dl - HIGH CARDIOVASCULAR RISK Normal [facility] Comment on above: Performed By: #### T SH, FT3, LIPID, CMP #### [facility] [address] [place] [address] Dr. Altaf Hogue LDL CALC NORMAL SEE BELOW Normal [facility] Comment on above: Result Comment: <100 mg/dl OPTIMAL 100 - 129 mg/dl NEAR OR ABOVE OPTIMAL 130 - 159 mg/dl BORDERLINE HIGH 160 - 189 mg/dl HIGH >190 mg/dl VERY HIGH Performed By: #### T SH, FT3, LIPID, CMP #### [facility] [address] [address] [address] Altaf Hogue Triglyceride [Mass/Vol] 94 mg/dL Normal <=150 [facility] Comment on above: Performed By: #### T SH, FT3, LIPID, CMP #### [facility] [address] [address] [address] Altaf Hogue VLDL CALC 18.8 mg/dL Normal [facility] Comment on above: Performed By: #### T SH, FT3, LIPID, CMP #### [facility] [address] [address] [address] Altaf Hogue PROF 14(COMP METB)on 022 Albumin [Mass/Vol] 3.3 g/dL Critically low 3.4-5.0 [facility] Comment on above: Performed By: #### T SH, FT3, LIPID, CMP #### [facility] [address] [address] [address] Altaf Hogue Albumin/Globulin [Mass ratio] 0.9 {ratio} Normal [facility] Comment on above: Performed By: #### T SH, FT3, LIPID, CMP #### [facility] [address] [address] [address] Altaf Hogue ALP [Catalytic activity/Vol] 104 U/L Normal 46-116 [facility] Comment on above: Performed By: #### T SH, FT3, LIPID, CMP #### [facility] [address] [address] [address] Altaf Hogue ALT [Catalytic activity/Vol] 24 U/L Normal 14-59 [facility] Comment on above: Performed By: #### T SH, FT3, LIPID, CMP #### [facility] [address] [address] [address] Altaf Hogue Anion gap [Moles/Vol] 11.2 mmol/L Normal [facility] Comment on above: Performed By: #### T SH, FT3, LIPID, CMP #### [facility] [address] [address] [address] Altaf Hogue AST [Catalytic activity/Vol] 18 U/L Normal 15-37 [facility] Comment on above: Performed By: #### T SH, FT3, LIPID, CMP #### [facility] [address] [place] [address] Dr. Altaf Hogue Bilirubin [Mass/Vol] 0.4 mg/dL Normal 0.2-1.0 [facility] Comment on above: Performed By: #### T SH, FT3, LIPID, CMP #### [facility] [address] [place] [address] Dr. Altaf Hogue Calcium [Mass/Vol] 8.9 mg/dL Normal 8.5-10.1 [facility] Comment on above: Performed By: #### T SH, FT3, LIPID, CMP #### [facility] [address] [place] [address] Dr. Altaf Hogue Chloride [Moles/Vol] 107 mmol/L Normal 98-107 [facility] Comment on above: Performed By: #### T SH, FT3, LIPID, CMP #### [facility] [address] [place] [address] Dr. Altaf Hogue CO2 [Moles/Vol] 26.2 mmol/L Normal 21.0-32.0 [facility] Comment on above: Performed By: #### T SH, FT3, LIPID, CMP #### [facility] [address] [place] [address] Dr. Altaf Hogue Creatinine [Mass/Vol] 0.85 mg/dL Normal 0.55-1.02 [facility] Comment on above: Performed By: #### T SH, FT3, LIPID, CMP #### [facility] [address] [place] [address] Dr. Altaf Hogue EGFR-AF TURKS AND CAICOS ISLANDER >60 Normal >=60 [facility] Comment on above: Performed By: #### T SH, FT3, LIPID, CMP #### [facility] [address] [address] [address] Altaf Hogue EGFR-NON AF TURKS AND CAICOS ISLANDER >60 Normal >=60 [facility] Comment on above: Performed By: #### T SH, FT3, LIPID, CMP #### [facility] [address] [address] [address] Altaf Hogue Globulin (S) [Mass/Vol] 3.8 g/dL Normal [facility] Comment on above: Performed By: #### T SH, FT3, LIPID, CMP #### [facility] [address] [address] [address] Altaf Hogue Glucose [Mass/Vol] 88 mg/dL Normal 74-106 [facility] Comment on above: Performed By: #### T SH, FT3, LIPID, CMP #### [facility] [address] [address] [address] Altaf Hogue Potassium [Moles/Vol] 4.4 mmol/L Normal 3.5-5.1 [facility] Comment on above: Performed By: #### T SH, FT3, LIPID, CMP #### [facility] [address] [place] [address] Dr. Altaf Hogue Protein [Mass/Vol] 7.1 g/dL Normal 6.4-8.2 [facility] Comment on above: Performed By: #### T SH, FT3, LIPID, CMP #### [facility] [address] [place] [address] Dr. Altaf Hogue Sodium [Moles/Vol] 140 mmol/L Normal 136-145 [facility] Comment on above: Performed By: #### T SH, FT3, LIPID, CMP #### [facility] [address] [address] [address] Altaf Hogue Urea nitrogen [Mass/Vol] 15.0 mg/dL Normal 7.0-18.0 [facility] Comment on above: Performed By: #### T SH, FT3, LIPID, CMP #### [facility] [address] [place] [address] Dr. Altaf Hogue Urea nitrogen/Creatinin e [Mass ratio] 17.6 mg/mg Normal [facility] Comment on above: Performed By: #### T SH, FT3, LIPID, CMP #### [facility] [address] [place], [place] [address] Dr. Altaf Hogue TSHon 03-31-2022 TSH 1.010 uIU/mL Normal 0.358-3.740 [facility] Comment on above: Performed By: #### T SH, FT3, LIPID, CMP #### [facility] [address] [place], [place] [address] ABD/PELVIS WO CONon [...] by: DANIELLE YAP Date: 2021-06-25 13:32 Normal [facility] Vital Signs Date Time Vital Sign Value Performing Clinician Jasmin link 01-28-2025 11:09-0400 Diastolic blood pressure 75 mm[Hg] Jacqueline Hernandez [employer] Work Phone: [facility] 01-28-2025 11:09-0400 Heart rate 61 /min Jacqueline Hernandez [employer] Work Phone: [facility] 01-28-2025 11:09-0400 Systolic blood pressure 118 mm[Hg] Jacqueline Hernandez [employer] Work Phone: [facility] 01-16-2025 11:05-0400 Body height 163.83 cm Jacqueline Hernandez APRN Work Phone: [facility] 01-16-2025 11:05-0400 Body mass index (BMI) [Ratio] 39.4 kg/m2 Jacqueline Hernandez [employer] Work Phone: [facility] 01-16-2025 11:05-0400 Body temperature 98 [degF] Jacqueline Hernandez [employer] Work Phone: [facility] 01-16-2025 11:05-0400 Body weight 105.68 kg Jacqueline Hernandez [employer] Work Phone: [facility] 01-16-2025 11:05-0400 Diastolic blood pressure 76 mm[Hg] Jacqueline Hernandez APRN Work Phone: [facility] 01-16-2025 11:05-0400 Heart rate 80 /min Jacqueline Hernandez APRN Work Phone: [facility] 01-16-2025 11:05-0400 SaO2% (BldA) [Mass fraction] 97 % Jacqueline Hernandez [employer] Work Phone: [facility] 01-16-2025 11:05-0400 Systolic blood pressure 134 mm[Hg] Jacqueline Hernandez APRN Work Phone: [facility] 01-10-2025 14:00-0400 Diastolic blood pressure 66 mm[Hg] Vicky Downing MD Work Phone: [facility] 01-10-2025 14:00-0400 Heart rate 53 /min Vicky Downing MD Work Phone: [facility] 01-10-2025 14:00-0400 Respiratory rate 18 /min Vicky Downing MD Work Phone: [facility] 01-10-2025 14:00-0400 SaO2% (BldA) [Mass fraction] 98 % Vicky Downing MD Work Phone: [facility] 01-10-2025 14:00-0400 Systolic blood pressure 150 mm[Hg] Vicky Downing MD Work Phone: [facility] 01-10-2025 12:10-0400 Body height 162.6 cm Vicky Downing MD Work Phone: [facility] 01-10-2025 12:10-0400 Body mass index (BMI) [Ratio] 39.48 kg/m2 Vicky Downing MD Work Phone: [facility] 01-10-2025 12:10-0400 Body temperature 97.3 [degF] Vicky Downing MD Work Phone: [facility] 01-10-2025 12:10-0400 Body weight 104.33 kg Vicky Downing MD Work Phone: [facility] 10-18-2024 10:47-0400 Body height 163.83 cm Jacqueline Hernandez APRN Work Phone: [facility] 10-18-2024 10:47-0400 Body mass index (BMI) [Ratio] 38.5 kg/m2 Jacqueline Hernandez APRN Work Phone: [facility] 10-18-2024 10:47-0400 Body weight 103.5 kg Jacqueline Hernandez APRN Work Phone: [facility] 10-18-2024 10:47-0400 Diastolic blood pressure 70 mm[Hg] Jacquelnie Gonzalesdo [employer] Work Phone: [facility] 10-18-2024 10:47-0400 Systolic blood pressure 125 mm[Hg] Jacqueline Gonzaleschantalvickijose [employer] Work Phone: [facility] 10-03-2024 12:10-0400 Diastolic blood pressure 65 mm[Hg] Jacqueline Mary [employer] Work Phone: [facility] 10-03-2024 12:10-0400 Heart rate 53 /min Jacqueline Mary [employer] Work Phone: [facility] 10-03-2024 12:10-0400 Respiratory rate 16 /min Jacqueline Gonzalesdo [employer] Work Phone: [facility] 10-03-2024 12:10-0400 SaO2% (BldA) [Mass fraction] 96 % Jacqueline Gonzalesdo [employer] Work Phone: [facility] 10-03-2024 12:10-0400 Systolic blood pressure 122 mm[Hg] Jacqueline Gonzalesdo [employer] Work Phone: [facility] 10-03-2024 10:49-0400 Body height 163.83 cm Jacqueline Gonzalesdo [employer] Work Phone: [facility] 10-03-2024 10:49-0400 Body weight 104.32 kg Jacqueline Christiejose [employer] Work Phone: [facility] 09-06-2024 10:39-0500 Body height 165.1 cm [facility] 09-06-2024 10:39-0500 Body mass index (BMI) [Ratio] 39.4 kg/m2 [facility] 09-06-2024 10:39-0500 Body weight 107.6 kg [facility] 08-07-2024 11:35-0500 Body height 165.1 cm [facility] 08-07-2024 11:35-0500 Body mass index (BMI) [Ratio] 39.3 kg/m2 [facility] 08-07-2024 11:35-0500 Body temperature 98.1 [degF] [facility] 08-07-2024 11:35-0500 Body weight 107.16 kg [facility] 08-07-2024 11:35-0500 Diastolic blood pressure 72 mm[Hg] [facility] 08-07-2024 11:35-0500 Heart rate 76 /min [facility] 08-07-2024 11:35-0500 SaO2% (BldA) [Mass fraction] 98 % [facility] 08-07-2024 11:35-0500 Systolic blood pressure 126 mm[Hg] [facility] 06-12-2024 15:08-0500 Body height 165.1 cm [facility] 06-12-2024 15:08-0500 Body mass index (BMI) [Ratio] 39.8 kg/m2 [facility] 06-12-2024 15:08-0500 Body temperature 97.3 [degF] [facility] 06-12-2024 15:08-0500 Body weight 108.52 kg [facility] 06-12-2024 15:08-0500 Diastolic blood pressure 84 mm[Hg] [facility] 06-12-2024 15:08-0500 Heart rate 67 /min [facility] 06-12-2024 15:08-0500 SaO2% (BldA) [Mass fraction] 97 % [facility] 06-12-2024 15:08-0500 Systolic blood pressure 132 mm[Hg] [facility] 06-12-2024 10:58-0500 Blood Pressure Location JACQUELINE HUFF [facility] 06-12-2024 10:58-0500 Diastolic blood pressure 86 mm[Hg] JACQUELINE HUFF [facility] 06-12-2024 10:58-0500 Heart rate 78 /min JACQUELINE HUFF [facility] 06-12-2024 10:58-0500 Systolic blood pressure 132 mm[Hg] JACQUELINE HUFF [facility] 02-17-2024 11:32-0400 Diastolic blood pressure 68 mm[Hg] [facility] 02-17-2024 11:32-0400 Systolic blood pressure 116 mm[Hg] [facility] 02-17-2024 11:26-0400 Body height 165.1 cm [facility] 02-17-2024 11:26-0400 Body mass index (BMI) [Ratio] 39.1 kg/m2 [facility] 02-17-2024 11:26-0400 Body weight 106.59 kg [facility] 02-17-2024 11:26-0400 Heart rate 72 /min [facility] 01-10-2024 14:04-0400 Body height 165.1 cm [facility] 01-10-2024 14:04-0400 Body mass index (BMI) [Ratio] 39.4 kg/m2 [facility] 01-10-2024 14:04-0400 Body weight 107.5 kg [facility] 01-10-2024 14:04-0400 Diastolic blood pressure 78 mm[Hg] [facility] 01-10-2024 14:04-0400 Heart rate 72 /min [facility] 01-10-2024 14:04-0400 SaO2% (BldA) [Mass fraction] 98 % [facility] 01-10-2024 14:04-0400 Systolic blood pressure 118 mm[Hg] [facility] 07-27-2023 10:34-0500 Blood Pressure Location Antonio AMBRIZ [facility] 07-27-2023 10:34-0500 Diastolic blood pressure 67 mm[Hg] Antonio AMBRIZ [facility] 07-27-2023 10:34-0500 Heart rate 62 /min Antonio AMBRIZ [facility] 07-27-2023 10:34-0500 Respiratory rate 16 /min Antonio AMBRIZ [facility] 07-27-2023 10:34-0500 Systolic blood pressure 106 mm[Hg] Antonio AMBRIZ [facility] 08-10-2022 12:37-0500 Blood Pressure Location Oh RICE [facility] 08-10-2022 12:37-0500 Diastolic blood pressure 85 mm[Hg] Oh RICE [facility] 08-10-2022 12:37-0500 Heart rate 84 /min Oh RICE [facility] 08-10-2022 12:37-0500 Respiratory rate 16 /min Oh RICE [facility] 08-10-2022 12:37-0500 Systolic blood pressure 128 mm[Hg] Oh RICE [facility] 05-12-2022 13:16-0400 Blood Pressure Location Leonid MARSHALLL [facility] 05-12-2022 13:16-0400 Diastolic blood pressure 82 mm[Hg] Leonid MARSHALLL [facility] 05-12-2022 13:16-0400 Heart rate 80 /min Leonid MARSHALLL [facility] 05-12-2022 13:16-0400 Respiratory rate 16 /min Leonid MARSHALLJoe [facility] [place] 05-12-2022 13:16-0400 Systolic blood pressure 122 mm[Hg] Leonid MARSHALLL [facility] 01-19-2022 09:43-0400 Blood Pressure Location Vida Desouza Jr. [facility] 01-19-2022 09:43-0400 Diastolic blood pressure 85 mm[Hg] Vida Desouza Jr. [facility] 01-19-2022 09:43-0400 Heart rate 82 /min Vida Desouza Jr. [facility] 01-19-2022 09:43-0400 Systolic blood pressure 134 mm[Hg] Vida Desouza Jr. [facility] 11-12-2021 11:37-0400 Blood Pressure Location Vida Desouza Jr. [facility] 11-12-2021 11:37-0400 Diastolic blood pressure 81 mm[Hg] Vida Desouza Jr. [facility] 11-12-2021 11:37-0400 Heart rate 78 /min Vida Desouza Jr. [facility] 11-12-2021 11:37-0400 Respiratory rate 16 /min Vida Desouza Jr. [facility] 11-12-2021 11:37-0400 Systolic blood pressure 132 mm[Hg] Vida Deo Fermin [facility] Encounters Encounter Date Encounter Type Care Provider Facility Start: 02-11-2025 End: 02-11-2025 Bamboo flowsheet Yancy Carr PA Work Phone: [facility] Start: 02-11-2025 End: 02-11-2025 Bamboo flowsheet [facility] Start: 02-11-2025 End: 02-11-2025 ambulatory YANCY CARR Not Available Start: 02-11-2025 End: 02-11-2025 Office outpatient visit 15 minutes Yancy GUNTER Work Phone: [facility] Comment on above: Melanocytic nevus of trunk (Primary Dx); Seborrheic keratosis; Inflamed seborrheic keratosis Start: 01-28-2025 End: 01-28-2025 ambulatory Jacqueline Hernandez APRN Work Phone: [facility] Work Phone: Start: 01-28-2025 End: 01-28-2025 Patient encounter procedure [place] APRN -[facility] Work Phone: Start: 01-17-2025 End: 01-17-2025 Follow-up encounter Jaclyn Stewart APRN.HEATING TECHNICIAN Work Phone: Gastroenterology Comment on above: Results Start: 01-16-2025 End: 01-16-2025 ambulatory Jacqueline Hernandez APRN Work Phone: [facility] Work Phone: Start: 01-16-2025 End: 01-16-2025 Patient encounter procedure Jacqueline Hernandez APRN HEATING TECHNICIAN -[facility] Work Phone: Start: 01-10-2025 ambulatory RAUL LEWIS Facil ity:[facility] Start: 01-10-2025 End: 01-10-2025 Subsequent hospital visit by physician Vicky Downing MD Work Phone: Gastroenterology Comment on above: Eosinophilic esophag itis [K20.0] Start: 01-03-2025 End: 01-03-2025 ambulatory Awa Lemon RNdental resident Start: 12-06-2024 End: 12-06-2024 ambulatory SAMUEL SHORE Not Available Start: 10-18-2024 End: 10-18-2024 Bamboo flowsheet Fatuma A Felter SUPERVISOR SHIP MAINTENANCE SERVICES-HEATING TECHNICIAN Work Phone: [facility] Start: 10-18-2024 End: 10-18-2024 Bamboo flowsheet Fatuma A Felter SUPERVISOR SHIP MAINTENANCE SERVICES-HEATING TECHNICIAN Work Phone: [facility] Start: 10-18-2024 End: 10-18-2024 ambulatory FATUMA A FELTER Not Available Start: 10-18-2024 End: 10-18-2024 Patient encounter procedure Fatuma A Felter SUPERVISOR SHIP MAINTENANCE SERVICES-HEATING TECHNICIAN Work Phone: [facility] Comment on above: Inflamed seborrheic keratosis Start: 10-18-2024 End: 10-18-2024 ambulatory Jacqueline Hernandez APRN Work Phone: [facility] Work Phone: Start: 10-18-2024 End: 10-18-2024 Patient encounter procedure Jacqueline Hernandez SUPERVISOR SHIP MAINTENANCE SERVICES Work Phone: [facility] Work Phone: Start: 10-16-2024 End: 10-16-2024 ambulatory RAUL LEWIS Facility:[facility] Start: 10-16-2024 End: 10-16-2024 Patient encounter procedure Jaclyn Stewart SUPERVISOR SH[employer] MAINTENANCE SERVICES.HEATING TECHNICIAN Work Phone: Gastroenterology Comment on above: Eosinophilic esophag itis (Primary Dx); Esophageal lesion Start: 10-15-2024 End: 10-16-2024 Chart abstracting Blanca Desouza RNdental resident Start: 10-03-2024 Non-patient / Non-visit Jacqueline Hernandez APRN Work Phone: [facility] Work Phone: Start: 10-03-2024 End: 10-03-2024 Admission to same day surgery center Jacqueline Hernandez SUPERVISOR SHIP MAINTENANCE SERVICES Work Phone: [facility] Work Phone: Start: 10-03-2024 End: 10-03-2024 ambulatory Jacqueline Hernandez SUPERVISOR SHIP MAINTENANCE SERVICES Work Phone: [facility] Work Phone: Start: 09-12-2024 End: 09-12-2024 Bamboo flowsheet Fatuma A Felter SUPERVISOR SHIP MAINTENANCE SERVICES-HEATING TECHNICIAN Work Phone: [facility] Start: 09-12-2024 End: 09-12-2024 Bamboo flowsheet Fatuma A Felter SUPERVISOR SHIP MAINTENANCE SERVICES-HEATING TECHNICIAN Work Phone: [facility] Start: 09-12-2024 End: 09-12-2024 ambulatory FATUMA A FELTER Not Available Start: 09-12-2024 End: 09-12-2024 Patient encounter procedure Fatuma A Felter SUPERVISOR SHIP MAINTENANCE SERVICES-HEATING TECHNICIAN Work Phone: [facility] Comment on above: Inflamed seborrheic keratosis Start: 09-06-2024 End: 09-06-2024 ambulatory [facility] Work Phone: Start: 09-06-2024 End: 09-06-2024 Patient encounter procedure [facility] Work Phone: Start: 2024 End: 2024 Bamboo flowsheet Fatuma A Felter SUPERVISOR SHIP MAINTENANCE SERVICES-HEATING TECHNICIAN Work Phone: [facility] Start: 2024 End: 2024 Bamboo flowsheet Fatuma Cartagena Felter SUPERVISOR SHIP MAINTENANCE SERVICES-HEATING TECHNICIAN Work Phone: [facility] Start: 2024 End: 2024 Patient encounter procedure Fatuma Cartagena Felter SUPERVISOR SHIP MAINTENANCE SERVICES-HEATING TECHNICIAN Work Phone: [facility] Comment on above: Inflamed seborrheic keratosis Start: 2024 End: 2024 ambulatory FATUMA A FELTER Not Available Start: 08-07-2024 End: 08-07-2024 ambulatory [facility] Work Phone: Start: 08-07-2024 End: 08-07-2024 Patient encounter procedure [facility] Work Phone: Start: 06-12-2024 End: 06-12-2024 Patient encounter procedure [facility] Work Phone: Start: 06-12-2024 End: 06-12-2024 ambulatory JACQUELINE HUFF Facility:[facility] Start: 06-12-2024 End: 06-12-2024 Patient encounter procedure JACQUELINE HUFF [facility] Start: 04-09-2024 End: 04-09-2024 ambulatory Antonio AMBRIZ Facility:[facility] Start: 04-09-2024 End: 04-09-2024 Patient encounter procedure Antonio AMBRIZ [facility] Start: 04-02-2024 End: 04-02-2024 ambulatory Antonio AMBRIZ Facility:[facility] Start: 04-02-2024 End: 04-02-2024 Patient encounter procedure Antonio AMBRIZ [facility] Start: 03-26-2024 ambulatory Colby Escobar Facility :[facility] Start: 02-17-2024 End: 02-17-2024 ambulatory [facility] Work Phone: Start: 02-17-2024 End: 02-17-2024 Patient encounter procedure [facility] Work Phone: Start: 02-15-2024 End: 02-15-2024 ambulatory Antonio AMBRIZ Facility:[facility] Start: 02-15-2024 End: 02-15-2024 Patient encounter procedure Antonio AMBRIZ [facility] Start: 01-10-2024 End: 01-10-2024 ambulatory [facility] Work Phone: Start: 01-10-2024 End: 01-10-2024 Patient encounter procedure [facility] Work Phone: Start: 12-08-2023 End: 12-08-2023 ambulatory Colby Escobar Facility:[facility] Start: 10-06-2023 End: 10-06-2023 ambulatory Colby Escobar Facility:[facility] Start: 07-27-2023 End: 07-27-2023 ambulatory Antonio AMBRIZ Facility:[facility] Start: 07-27-2023 End: 07-27-2023 Patient encounter procedure Antonio AMBRIZ [facility] Start: 05-10-2023 End: 05-10-2023 Lab Drop off Colby Escobar [facility] Start: 01-11-2023 End: 01-11-2023 Patient encounter procedure Oh GOSS [facility] Start: 01-05-2023 End: 01-05-2023 Patient encounter procedure Oh GOSS [facility] Start: 12-31-2022 End: 12-31-2022 Lab Drop off Oh GOSS [facility] Start: 08-10-2022 End: 08-10-2022 Patient encounter procedure Oh GOSS [facility] Start: 05-12-2022 End: 05-12-2022 Patient encounter procedure Leonid GERBER [facility] Start: 05-12-2022 End: 05-13-[address] RAUL LEWIS Facility:[facility] Start: 03-31-2022 End: 04-01-[address] RAUL LEWIS Facility:[facility] Start: 02-09-2022 End: 03-19-2022 Pre-admission assessment Vida Desouza Jr. [facility] Start: 01-20-2022 End: 02-05-2022 Pre-admission assessment Vida Desouza Jr. [facility] Start: 01-19-2022 End: 01-19-2022 Patient encounter procedure Vida Desouza Jr. [facility] Start: 11-12-2021 End: 11-12-2021 Patient encounter procedure Vida Desouza Jr. [facility] Start: 06-25-2021 End: 06-26-[address] RAUL LEWIS Facility:[facility] Procedures Date Procedure Procedure Detail Performing Clinician Start: 02-11-2025 CRYOTHERAPY SKIN LESION Yancy GUNTER Work Phone: Start: 01-10-2025 Esophagoscp rig transoral hypopharynx crv hebert Stewart SUPERVISOR SHIP MAINTENANCE SERVICES.HEATING TECHNICIAN Work Phone: Start: 10-18-2024 CRYOTHERAPY SKIN LESION Fatuma Phipps SUPERVISOR SHIP MAINTENANCE SERVICES-HEATING TECHNICIAN Work Phone: Start: 10-03-2024 Esophagogastroduodenoscopy Jacqueline Gonzaleschantalbenjamin SUPERVISOR SHIP MAINTENANCE SERVICES Work Phone: Start: 09-12-2024 CRYOTHERAPY SKIN LESION Fatuma Cartagena Feltnicki SUPERVISOR SHIP MAINTENANCE SERVICES-HEATING TECHNICIAN Work Phone: Start: 2024 CRYOTHERAPY SKIN LESION Fatuma Phipps SUPERVISOR SHIP MAINTENANCE SERVICES-HEATING TECHNICIAN Work Phone: Start: 10-23-2020 Injection of therapeutic [...] RSV Vaccine (1 - 1-dose 75+ series) [facility] Start: 06-26-2027 Screening for malignant neoplasm of colon [facility] Start: 02-10-2026 End: 02-10-2026 Patient encounter procedure 02/10/2026 10:00 AM EDT Office Visit [facility] [address] [place] [phone] Yancy Carr PA [address] [place] [address] [facility] Start: 04-19-2025 End: 01-17-2026 EGD - THERAPEUTIC, EUS, OR TUBE INTERVENTIONS EGD - THERAPEUTIC, EUS, OR TUBE INTERVENTIONS Endoscopy Routine Eosinophilic esophagitis Expected: 04/19/2025, Expires: 01/17/2026 [facility] Work Phone: Comment on above: Expected: 04/19/2025, Expires: Start: 03-18-2025 Influenza vaccination [facility] Start: 02-11-2025 End: 02-11-2025 Patient encounter procedure 02/11/2025 10:00 AM EDT Office Visit [facility] [address] [place] [phone] Yancy Carr PA [address] [place] [address] [facility] Start: 01-10-2025 End: 01-10-2025 Patient encounter procedure 01/10/2025 1:00 PM EDT Appointment Gastroenterology [address] [place] [address] Vicky Downing MD [address] [place] [address] Eosinophilic esophagitis [K20.0] Gastroenterology Comment on above: Eosinophilic esophagitis [K20.0] Start: 12-11-2024 End: 10-16-2025 EGD - THERAPEUTIC, EUS, OR TUBE INTERVENTIONS EGD - THERAPEUTIC, EUS, OR TUBE INTERVENTIONS Endoscopy Routine Eosinophilic esophagitis Esophageal lesion Expected: 12/11/2024 (Approximate), Expires: 10/16/2025 [facility] Work Phone: Comment on above: Expected: 12/11/2024 (Approximate), Expi res: 10/16/2025 Start: 11-19-2024 End: 11-19-2024 Patient encounter procedure 11/19/2024 1:55 PM EDT Office Visit [facility] [address] [place] [phone] Fatuma Phipps, SUPERVISOR SHIP MAINTENANCE SERVICES-HEATING TECHNICIAN [address] [place] [address] [facility] Start: 10-18-2024 End: 10-18-2024 Patient encounter procedure 10/18/2024 10:25 AM EDT Office Visit [facility] [address] [place] [phone] Fatuma Phipps, SUPERVISOR SHIP MAINTENANCE SERVICES-HEATING TECHNICIAN [address] [place] [address] [facility] Start: 10-03-2024 [facility] Start: 09-12-2024 End: 09-12-2024 Patient encounter procedure 09/12/2024 1:10 PM EST Office Visit [facility] [address] [place] [address] Fatuma Phipps, SUPERVISOR SHIP MAINTENANCE SERVICES-HEATING TECHNICIAN [address] [place] [address] [facility] Start: 2024 End: 2024 Patient encounter procedure 2024 9:40 AM EST Office Visit [facility] [address] [place] [phone] Fatuma Phipps, SUPERVISOR SHIP MAINTENANCE SERVICES-HEATING TECHNICIAN [address] [place] [address] Arrived [facility] Comment on above: Arrived Start: 08-07-2024 Patient referral [facility] Work Phone: Start: 07-18-2024 Advance Directive Discussion Advance Directive Discussion [facility] Start: 07-18-2024 Medicare Advantage Annual Wellness Visit Medicare Advantage Annual Wellness Visit [facility] Start: 03-18-2024 Covid-19 Vaccine ( season) Covid-19 Vaccine ( season) [facility] Start: 03-18-2024 Influenza vaccination Influenza Vaccine (#1) [facility] Start: 2017 Pneumococcal Vaccine: 65+ Years (2 of 2 - PCV) Pneumococcal Vaccine: 65+ Years (2 of 2 - PCV) [facility] Start: 2017 Screening for osteoporosis Bone Density Screening [facility] Start: 04-28-2015 Pneumococcal Vaccine: 50+ (2 of 2 - PCV) Pneumococcal Vaccine: 50+ (2 of 2 - PCV) [facility] Start: 04-28-2015 Pneumococcal Vaccine: 65+ Years (2 of 2 - PCV) Pneumococcal Vaccine: 65+ Years (2 of 2 - PCV) [facility] Start: 04-06-2007 Diabetes Screening Diabetes Screening [facility] Start: 2002 Shingrix Vaccine (1 of 2) Shingrix Vaccine (1 of 2) [facility] Start: 1997 Lipid panel Lipid Screening [facility] Start: 1997 Screening for malignant neoplasm of colon [facility] Start: 1992 Screening for malignant neoplasm of breast [facility] Start: 1971 Urine microalbumin profile DTaP,Tdap,Td Vaccine (1 - Tdap) [facility] Start: 1970 Anxiety Screening Anxiety Screening [facility] Start: 1970 Depression Screening Depression Screening [facility] Start: 1970 Hepatitis C screening Hepatitis C Screening [facility] Start: 1952 Screening for malignant neoplasm of colon [facility] Comprehensive metabolic 2000 panel - Serum or Plasma [facility] DXA Skeletal system.axial Views for bone density [facility] MG Breast - bilatera l Screening [facility] Patient Education Hiatal hernia Esophageal stricture Know your Meds [facility] Work Phone: Patient referral [facility] Work Phone: Tissue Pathology biopsy report [facility] Work Phone: Comment on above: Release Upon Ordering for 1 Occurrences starting 01/10/2025, 1 completed [facility] Immunizations Immunization Date Immunization Notes Care Provider Fa cility 03-24-2023 influenza virus vacc ine, unspecified formulation Colby Escobar [facility] 03-24-2023 SARS-CoV-2 (COVID-19 ) [id number] Colby Escobar [facility] 07-19-2022 SARS-CoV-2 (COVID-19 ) [id number].[id number] Oh GOSS [facility] 03-30-2022 influenza virus vacc ine, unspecified formulation Oh GOSS [facility] 05-19-2021 SARS-CoV-2 (COVID-19 ) mRNA-[address] [facility] 04-24-2021 influenza virus vacc ine, unspecified formulation Oh GOSS [facility] Comment on above: Result Comment: 2022: 67 10-04-2020 SARS-CoV-2 (COVID-19 ) mRNA-1273 vaccine Vida Desouza Jr. [facility] 09-06-2020 SARS-CoV-2 (COVID-19 ) mRNA-1273 vaccine Vida Desouza Jr. [facility] 04-17-2020 influenza virus vacc ine, unspecified formulation Vida Deo Fermin [facility] 06-13-2019 influenza virus vacc ine, unspecified formulation Oh GOSS [facility] 05-18-2018 influenza virus vacc ine, unspecified formulation Oh RICE [facility] 06-08-2015 influenza virus vacc ine, unspecified formulation Oh GOSS [facility] 04-28-2014 influenza virus vacc ine, unspecified formulation Oh GOSS [facility] 04-28-2014 pneumococcal polysaccharide vaccine, 23 valent [facility] 05-13-2013 influenza virus vacc ine, unspecified formulation Oh GOSS [facility] Payers Date Payer Category Payer Self-pay 2024 Medicare (Managed Care) [id number]. [id number] 2023 Private Health Insurance [id number] 1959 Medicare [id number] 1950 Unknown [id number] 2.16.84 [id number] 1952 Unknown [id number] 2.16.84 [id number] 1952 Unknown [id number] 2.16.84 [id number] 1952 Unknown [id number] [id number] 1952 Unknown [id number] 2.16.840.1.113654.3.579.2.727 1952 Unknown [id number] 2.16.840.1.939163.3.579.2.727 1952 Unknown [id number] 2.16.840.1.250917.3.579.2.727 1952 Unknown [id number] 2.16.840.1.802195.3.579.2.727 1952 Unknown [id number] 2.16.840.1.792246.3.579.2.727 1952 Unknown [id number] 2.16.840.1.460617.3.579.2.727 1952 Unknown [id number] 2.16.840.1.682902.3.579.2.727 1952 Unknown [id number] 2.16.840.1.666355.3.579.2.1259 1952 Unknown [id number] 2.16.840.1.123930.3.579.2.1259 1952 Unknown [id number] 2.16.840.1.106151.3.579.2.1259 1952 Unknown [id number] 2.16.840.1.595262.3.579.2.1259 1952 Unknown [id number] 2.16.840.1.236227.3.579.2.1259 Medicare Medicare [id number] Unknown [facility] [id number] Unknown [id number] Social History Date Type Detail Facility Start: 11-12-2021 End: 12-17-2022 Tobacco smoking status Never smoked tobacco (finding) [facility] Start: 02-10-2024 End: 02-11-2025 Sex Assigned At Female [facility] Tobacco smoking status Never [facility] [place] Start: 1950 Sex Assigned At Female F [facility] Start: 08-07-2024 End: 10-18-2024 Sex Female (finding) [facility] Start: 12-17-2022 End: 10-16-2024 Tobacco use and exposure Smokeless tobacco non-user [facility] Start: 02-10-2024 End: 02-11-2025 History of Social function [facility] Start: 1950 Sex assigned at Not on file [facility] consumption unknown [facility] Start: 10-16-2024 End: 01-10-2025 Alcoholic beverage intake Lifetime non-drinker (finding) [facility] Goals Date Patient Goal Desired Activity /State Functional Status Date Assessment Result Facility 06-12-2024 Functional Status N/A [facility] 04-09-2024 Functional Status N/A [facility] 02-15-2024 Functional Status N/A [facility] 07-27-2023 Functional Status N/A [facility] 01-11-2023 Functional Status N/A [facility] 12-23-2022 Functional Status N/A [facility] 08-10-2022 Functional Status N/A [facility] 05-12-2022 Functional Status N/A [facility] 01-19-2022 Functional Status N/A [facility] Clinical Notes 11-12-2021 to 02-11-2025 LYRIC Whitley - 02/11/2025 10:00 AM EDTTelephone Encounter - Jaclyn Stewart APRN.HEATING TECHNICIAN - 01/17/2025 9:51 AM EDTTelephone Encounter - Jaclyn Stewart APRN.HEATING TECHNICIAN - 01/17/2025 9:51 AM EDT Note Date [...] limited to risks of scarring, darker or tax compliance representative pigmentary changes, recurrence, incomplete removal and [...] Visit: 1 year documented in this encounter [facility] 01-17-2025 Telephone encounter Note Form atting of [...] 1 week after EGD. Jaclyn Stewart APRN.CNP [facility] 01-17-2025 Miscellaneous Notes Formattin g of this [...] Jaclyn Stewart APRN.CNP documented in this encounter [facility] 01-16-2025 Evaluation note Diagnosis Onset Date Resolution [...] reflux disease) acute January 28, 2025 11:05am [facility] Work Phone: 1(120) 621-832306-26-2025 Nurse Note* Arben Desouza RN - 01/10/2025 [...] MATERIAL: Procedure Discharge Instructions REFERRAL (RECOMMENDATION): None [facility]06-26-2025 Nurse Note* Arben Desouza RN - 01/10/2025 [...] RN In Department: GASTROENTEROLOGY documented [facility] Nurse Note* Genevieve Jara RN - 01/10/2025 12:09 PM EDT PRE OP LEARNING ASSESSMENT PROCEDURE/SURGERY: GI PROCEDURES: EGD READINESS TO LEARN COGNITIVE ABILITY: Alert and oriented MOTIVATION TO LEARN: Eager FAMILY SUPPORT: Unable to assess - Family not present PATIENT LEARNS BEST BY: Individual Instruction FACTORS AFFECTING LEARNING: None PHYSICAL LIMITATIONS AFFECTING LEARNING: None Electronically Signed By: GENEVIEVE JARA RN In Department: GASTROENTEROLOGY [facility]06-19-2025 Nurse Note* Awa Lemon RN - 01/03/2025 2:24 PM EDT GI Pre-Procedure Spoke with patient: Yes Confirmed date scheduled and patient report time: Yes Procedure Planned:Esophagogastroduodenoscopy(EGD) for control of bleeding,dilation(any means),imaging,tube placement Is the patient on blood thinners?no Procedure Instructions given to patient: Yes, and they verbalized their understanding of instructions given Patient instructed to have family/friend present for procedure transport home:Patient/patient account manager sales representative was told that if they [...] area. Any barriers to Patient learning: Patient/Patient Nut Cracker responded appropriately on phone. Type of instruction given: Verbal by telephone contact. KATIA Al [facility]06-19-2025 Nurse Note* Awa Lemon RN - 01/03/2025 2:24 PM EDT GI Pre-Procedure Spoke with patient: Yes Confirmed date scheduled and patient report time: Yes Procedure Planned:Esophagogastroduodenoscopy(EGD) for control of bleeding,dilation(any means),imaging,tube placement Is the patient on blood thinners?no Procedure Instructions given to patient: Yes, and they verbalized their understanding of instructions given Patient instructed to have family/friend present for procedure transport home:Patient/patient account manager sales representative was told that if they [...] area. Any barriers to Patient learning: Patient/Patient Nut Cracker responded appropriately on phone. Type of instruction given: Verbal by telephone contact. KATIA Al [facility] History of Present illness Narrative* Fatuma Phipps, SUPERVISOR SHIP MAINTENANCE SERVICES-HEATING TECHNICIAN - 10/18/2024 1:20 PM EDT Follow up [...] limited to risks of scarring, darker or tax compliance representative pigmentary changes, recurrence, incomplete removal and [...] weeks, follow up ISKs [id number] Evaluation note* Diagnosis Onset Date Resolution Status Admit Date Dysphagia acute October 18 10:44am GERD (gastroesophageal reflu x disease) acute October 18, 2024 10:44am Schatzki's ring acute October 10:44am Squamous papilloma acute October 18, 2024 10:44am Encounter for subsequent annual wellness visit in Medicare patient noneactive January 16, 2025 11:01am [facility] Work Phone: 1(368) 213-687304-01-2025 Instructions* Patient Instructions* Jaclyn Stewart APRN.CNP - 10/16/2024 1:44 PM EDT -take first dose of pantoprazole as you have been, take second dose a half hour to an hour before dinner. -schedule EGD at [facility] [place] to be done in 8-12 weeks, to reschedule [phone] option 0. Must have sales driver. documented in [facility]-2025 NoteHNO ID: [id number] Author: JACLYN STEWART APRN.CNP Service: ? Author [...] following chief complaint: Patient underwent EGD at [facility], 2 cm esophageal lesion was noted 33 cm from the incisors. Bx confirm inflammatory lesion and eosinophilic esophagitis. Presenting to [facility] for further management/second opinion. Patient reports dysphagia symptoms started awhile ago, one incident food got stuck and she had a hard time getting it to go down, prompting visit to local GI. Since EGD locally has been taking twice daily pantoprazole 40 mg, by at least an hour from levothyroxine. Does patient have achalasia? No GI EVALUATION Reviewed EGD 10/03/24 at [facility] Folds and furrows circumferential esophagus, 2 cm [...] daily. Repeat EGD in 8-12 weeks at [facility] with distal and proximal esophageal bx. - EGD - THERAPEUTIC, EUS, OR TUBE INTERVENTIONS - EGD - THERAPEUTIC, EUS, OR TUBE INTERVENTIONS 2. Esophageal lesion - ICD9: 530.9, ICD10: K22.9 2 cm lesion 33 cm from the incisors was found on local EGD, bx reveal inflammatory, no malignancy. Will reassess lesion with bx during repeat EGD at [facility]. - EGD - THERAPEUTIC, EUS, OR TUBE INTERVENTIONS - EGD - THERAPEUTIC, EUS, OR TUBE INTERVENTIONS Jaclyn Stewart APRN.GERMAINE I spent a total of 45 minutes on the date of the service which included preparing to see the patient, [id number] patient care, completing clinical documentation, obtaining and/or reviewing separately obtained history, performing a medically appropriate examination, counseling and educating the patient/family/caregiver, ordering medications, tests, or procedures, communicating with other HCPs (not separately reported), independently interpreting results (not separately reported), communicating results to the patient/family/caregiver, and care coordination (not separately reported). Jaclyn Stewart APRN.GERMAINE October 16, 2024 1:23 [facility]04-01-2025 History of Present illness Narrative * Jaclyn Stewart APRN.HEATING TECHNICIAN - 10/16/2024 1:23 PM EDT Images from [...] the following chiefcomplaint: Patient underwent EGD at [facility], 2 cm esophageal lesion was noted 33 [...] No GI EVALUATION Reviewed EGD 10/03/24 at [facility] Folds and furrows circumferential esophagus, 2 cm [...] daily. Repeat EGD in 8-12 weeks at [facility] with distal and proximal esophageal bx. - EGD - THERAPEUTIC, EUS, OR TUBE INTERVENTIONS - EGD - THERAPEUTIC, EUS, OR TUBE INTERVENTIONS 2. Esophageal lesion - ICD9: 530.9, ICD10: K22.9 2 cm lesion 33 cm from the incisors was found on local EGD, bx reveal inflammatory, no malignancy. Will reassess lesion with bx during repeat EGD at [facility]. - EGD - THERAPEUTIC, EUS, OR TUBE INTERVENTIONS - EGD - THERAPEUTIC, EUS, OR TUBE INTERVENTIONS Jaclyn Stewart APRN.GERMAINE I spent a total of 45 minutes on the date of the service which included preparing to see the patient, fixs-[id number] patient care, completing clinical documentation, obtaining and/or reviewing separately obtained history, performing a medically appropriate examination, counseling and educating the pat ient/family/caregiver, ordering medications, tests, or procedures, communicating with other HCPs (not separately reported), independently interpreting results (not separately reported), communicatingresults to the patient/family/caregiver, and care coordination (not separately reported). Jaclyn Stewart APRN.CNP October 16, 2024 1:23 PM documented in this encounterCommunity [facility] Center03-31-2025 NoteHNO ID: [id number] Author: BLANCA DESOUZA RN Service: ? Author Type: Registered Nurse Type: Progress Notes Filed: 10/16/2024 08:43 Note Text: New Patient/Consult REASON FOR VISIT Tarah Briseno is a 74 year old female who is scheduled for esophageal tumor at the consult request of . EGD 10/03/2024[facility]03-31-2025 History of Present illness Narrative* Blanca Desouza RN - 10/15/2024 11:06 AM EDT Images from the original note were not included. New Patient/Consult REASON FOR VISIT Tarah Briseno is a 74 year old female who is scheduled for esophageal tumor at the consult request of . EGD 10/03/2024 documented in this encounterCommunity [facility] Center03-19-2025 [place] [address] Gastroenterology H&P Signed Patient: Tarah Briseno MR#: [id number] : 1950 Acct:[id number] Age/Sex: 74 / F Adm Date: 5 Loc: Room: Type: [facility] Attending Dr: Alicia Wilks MD Copies to: [...] MD 10/03/24 1135 Signed By: 10/03/24 1135 [facility]03-19-2025 [place] [id number] EGD Procedure Note Signed Patient: Tarah Briseno MR#: [id number] : 1950 Acct:[id number] Age/Sex: 74 / F Adm Date: 5 Loc: Room: Type: [facility] Attending Dr: Alicia Wilks MD Copies to: [...] MD 10/03/24 1136 Signed By: 10/03/24 1140 [facility]02-26-2025 History of Present illness Narrative * Fatuma Phipps, SUPERVISOR SHIP MAINTENANCE SERVICES-HEATING TECHNICIAN - 09/12/2024 1:10 PM EST Follow up [...] limited to risks of scarring, darker or tax compliance representative pigmentary changes, recurrence, incomplete removal and [...] Next Visit: 4 weeks documented in this encounterMet[facility] [id number] History of Present illness Narrative* CITLALY Alcaraz [...] limited to risks of scarring, darker or tax compliance representative pigmentary changes, recurrence, incomplete removal and [...] month, follow up ISKs documented in this encounterMet[facility] [id number] Evaluation note* Diagnosis Onset Date Resolution Status Admit Date Atypical chest pain acute 2024 11:29am Dysphagia acute August 07, 2024 11:29am GERD (gastroesophageal reflu x disease) acute August 07 11:29am Atypical chest pain acute 2024 10:36am Dysphagia acute September 06, 2024 10:36am GERD (gastroesophageal reflu x disease) acute September 06 025 10:36am Schatzki's ring acute September 06, 2024 10:36am [facility] Work Phone: 1(635) 981-855301-21-2025 Evaluation note* Diagnosis Onset Date Resolution Status [...] 2024 10:44am Schatzki's ring acute October 10:44am [facility] Work Phone: 1(830) 275-655411-26-2024 Evaluation note* Diagnosis Onset Date Resolution Status Admit Date GERD (gastroesophageal reflu x disease) acute June 12, 2 024 3:00pm Dysphagia acute August 07, 2024 11:29am [facility] Work Phone: 1(292) 916-663011-26-2024 Evaluation note* Diagnosis Onset Date Resolution Status Admit Date GERD (gastroesophageal reflu x disease) acute June 12, 2 024 3:00pm Atypical chest pain acute 2024 11:29am Dysphagia acute August 07, 2024 11:29am GERD (gastroesophageal reflu x disease) acute August 07 11:29am Dysphagia acute September 06, 2024 10:36am [facility] Work Phone: 1(199) 946-866411-26-2024 Hospital Discharge instructions Patient Education 06/12/2024 11:13:21 [...] nerve stimulation). ?For women, using a medical operations supervisor to prevent urine leaks. This is a [...] right after experiencing incontinence. General instructions Take nrmu-gog-eeackew and prescription medicines only as told by [...] important. Where to find more information National [place] of Diabetes and Digestive and Kidney Diseases: www.niddk.nih.gov [employer] U[employer] Association: www.urologyhealth.org Contact a health care [...] provider. Document Revised: 02/06/2021 Document Reviewed: 02/06/2021 [email or web address] Patient Education 2023 3dim. Follow Up Care 04/09/2024 13:43:38 With:[facility] [place] Address: When: Unknown Comments:Only if needed/new problems arise. No scheduled appointment indicated at this time. [facility] [place] 11-26-2024 NotePatient Education Urology Urinary [...] stimulation). ? For women, using a medical operations supervisor to prevent urine leaks. This is a [...] your health care provider (more content not included)...[facility] 04-09-2024 Hospital Discharge instructions Patient Education [...] Up Care 02/15/2024 13:54:28 With:Antonio AMBRIZ Address: [address] [place] [address] [address] [place] [address]- Business (1) When: Unknown Comments:Please make a follow up appointment with one of our nurse practitioners or physician assistants within two months with a bladder scan to assess your bladder emptying. Have a great day! [facility] 09-23-2024 NotePatient Education Cystoscopy with Botox injection [...] if you have a fever over 100 degrees.[facility] 02-15-2024 Hospital Discharge instructions Patient Education [...] nerve stimulation). ?For women, using a medical operations supervisor to prevent urine leaks. This is a [...] right after experiencing incontinence. General instructions Take oxui-ruw-wpeksej and prescription medicines only as told by [...] important. Where to find more information [place] of Diabetes and Digestive and Kidney Diseases: www.niddk.nih.gov [employer] U[employer] Association: www.urologyhealth.org Contact a health care [...] provider. Document Revised: 02/06/2021 Document Reviewed: 02/06/2021 [email or web address] Patient Education 2022 3dim. 02/15/2024 13:25:40 Overactive Bladder, Adult Overactive Bladder, [...] your health care provider. General instructions Take vebi-ewo-mszfkwo and prescription medicines only as told by [...] provider. Document Revised: 03/23/2021 Document Reviewed: 03/23/2021 [employer] Patient Education 2022 [email or web address] Follow Up Care 07/27/2023 11:24:53 With:MADELIN CORDOBA, Antonio Alonzo, URL Address: [address] [address]- When: Unknown Comments:Juanita Carreon [facility] 07-31-2024 NotePatient Education Obstetrics and Gynecology Overactive [...] health care provider. General instructions ? Take kjzq-ouu-ekseweb and prescription medicines only as told by [...] help your health care (more content not included)...[facility]01-10-2024 Hospital Discharge instructions Patient Education 07/27/2023 [...] nerve stimulation). ?For women, using a medical operations supervisor to prevent urine leaks. This is a [...] right after experiencing incontinence. General instructions Take eatr-dmr-dpguaqa and prescription medicines only as told by [...] important. Where to find more information [place] of Diabetes and Digestive and Kidney Diseases: www.niddk.nih.gov [employer] U[employer] Association: www.urologyhealth.org Contact a health care [...] provider. Document Revised: 02/06/2021 Document Reviewed: 02/06/2021 [email or web address] Patient Education 2022 [email or web address] Follow Up Care 01/11/2023 10:33:06 With:MADELIN CORDOBA, Antonio Alonzo, URL Address: [address] [place] [phone]- When: Unknown [facility] [place] 06-27-2023 Hospital Discharge instructions Patient Education 01/11/2023 [...] your health care provider. General instructions Take ment-niy-lndvbrw and prescription medicines only as told by [...] provider. Document Revised: 03/23/2021 Document Reviewed: 03/23/2021 [email or web address] Patient Education 2022 [employer] Follow Up Care 12/07/2022 09:30:53 With:WOLFGANG CORDOBA, Oh Bradshaw, URL Address: [address] [place] [phone]- [phone] When:Within 6 Month(s) Comments:Dr. Ambriz [facility] 05-23-2023 Hospital Discharge instructions Follow Up Care 12/07/2022 09:39:03 With:Oh GOSS Address: [address] [place] [phone]- Business (1) When:1 week With:Oh GOSS Address: [address] [place] [phone]- Business (1) When: Unknown [facility]01-24-2023 Hospital Discharge instructions Patient Education 08/10/2022 13:07:29 [...] nerve stimulation). For women, using a medical operations supervisor to prevent urine leaks. This is a [...] right after experiencing incontinence. General instructions Take vsts-fji-bfqafci and prescription medicines only as told by [...] 08/11/2005 Document Revised: 07/14/2018 Document Reviewed: 10/13/2017 [email or web address] Patient Education 2020 3dim. Follow Up Care 07/07/2022 12:08:02 With:WOLFGANG CORDOBA, Oh W, URL Address: [address] [place] [address]- When: Unknown [facility] 07-05-2022 Hospital Discharge instructions Patient Education 01/19/2022 [...] fried and sweet foods. General instructions Take twqk-mcd-gcdyqcn and prescription medicines only as told by [...] 04/30/2010 Document Revised: 10/25/2019 Document Reviewed: 07/20/2018 [email or web address] Patient Education 2019 [employer] Follow Up Care 01/06/2021 11:55:31 With:Deo Fermin MD, Vida Diaz, URO Address: [facility] [address], [place] [address]- [phone] When: Unknown [facility] 04-28-2022 Hospital Discharge instructions Patient Education 11/12/2021 [...] nerve stimulation). For women, using a medical operations supervisor to prevent urine leaks. This is a [...] right after experiencing incontinence. General instructions Take qngz-jab-rvvhowd and prescription medicines only as told by [...] 08/11/2005 Document Revised: 07/14/2018 Document Reviewed: 10/13/2017 [email or web address] Patient Education 2020 3dim. 11/12/2021 12:04:09 Overactive Bladder, Adult Overactive Bladder, [...] fried and sweet foods. General instructions Take khrr-swi-vkyingb and prescription medicines only as told by [...] 04/30/2010 Document Revised: 10/25/2019 Document Reviewed: 07/20/2018 [email or web address] Patient Education 2020 3dim. Follow Up Care 07/09/2021 11:32:05 With:Vida Desouza Jr., MD, URO Address: [phone] When:01/12/2022 [facility] Evaluation + Plan note Future Appointments Appointment Date:01/19/2022 09:15:00 AM Scheduled Provider:Vida Desouza Jr., MD Location:[facility] Appointment Type:URO Office Visit [facility] Evaluation + Plan note Future Appointments Appointment Date:07/07/2022 10:00:00 AM Scheduled Provider: Location:[facility] Appointment Type:Urology FT Appointment Date:07/07/2022 11:00:00 AM Scheduled Provider: Location:[facility] Appointment Type:Urology FT General Surgery [place] Evaluation + Plan note Future Appointments Appointment Date:11/02/2022 12:15:00 PM Scheduled Provider:Oh GOSS MD Location:[facility] Appointment Type:URO Office Visit [facility] Evaluation + Plan note Future Appointments Appointment Date:01/05/2023 09:15:00 AM Scheduled Provider: Location:[facility] Appointment Type:Urology FT Appointment Date:01/11/2023 09:30:00 AM Scheduled Provider:Oh GOSS MD Location:[facility] Appointment Type:URO Office Visit Diagnostic Tests Pending * Urine [facility]ments Appointment Date:01/11/2023 09:30:00 AM Scheduled Provider:Oh GOSS MD Location:[facility] App[facility]ment [facility] App[facility]ments Appointment Date:07/27/2023 10:15:00 AM Scheduled Provider:Antonio AMBRIZ MD Location:[facility] Appointment Type:URO Office Visit [facility] Evaluation + Plan note Future Appointments Appointment Date:07/27/2023 10:15:00 AM Scheduled Provider:Antonio AMBRIZ MD Location:[facility] Appointment Type:URO Office Visit Appointment Date:03/26/2024 01:00:00 PM Scheduled [facility] Medicare Wellness [facility] Future Appointments Appointment Date:02/15/2024 01:30:00 PM Scheduled Provider:Antonio AMBRIZ MD [facility] App[facility] Type:URO Office Visit Appointment Date:03/26/2024 01:00:00 PM Scheduled Provider: Location:[facility] Appointment Type:FM Medicare Wellness Subsequent [facility] Evaluation + Plan note Future Appointments Appointment Date:03/26/2024 01:00:00 PM Scheduled Provider: Location:[facility] Appointment Type:FM Medicare Wellness Subsequent Appointment Date:04/06/2024 09:00:00 AM Scheduled Provider: Location:[facility] Appointment Type:Urology CALL PAT FT Appointment Date:04/09/2024 01:15:00 PM Scheduled Provider: Location:[facility] Appointment Type:Urology FT [facility] evaluation + Plan note Future Appointments Appointment Date:06/12/2024 10:20:00 AM Scheduled Provider:JACQUELINE HUFF PA-C Location:[facility] Appointment Type:URO Office Visit [facility] Evaluation + Plan note Future Appointments Appointment Date:04/06/2024 09:00:00 AM Scheduled Provider: Location:[facility] Appointment Type:Urology CALL PAT FT Appointment Date:04/09/2024 01:15:00 PM Scheduled Provider: Location:[facility] Appointment Type:Urology FT [facility] evaluation note* Diagnosis Onset Date Resolution Status Screening for colon cancer a [facility] Work Phone: Evaluation note* Diagnosis Onset Date Resolution Status Asthma acute Hyperlipemia acute Hypothyroid acute Screening for colon cancer a [facility] Work Phone: Evaluation note* Diagnosis Inflamed seborrheic keratosis documented in this encounter [facility] HealthcareEvaluation note* Diagnosis Inflamed seborrheic keratosis documented in this encounter [facility] HealthcareEvaluation note* Diagnosis Eosinophilic esophagitis- Primary Esophageal lesion Unspecified disorder of esophagus [facility] encounter [facility] Diagnosis Eosinophilic esophagitis- Primary Esophageal lesion Unspecified disorder of esophagus documented in this encounter [facility] Diagnosis Eosinophilic esophagitis- Primary documented in this encounter [facility] Diagnosis Melanocytic nevus of trunk- Primary Benign neoplasm of skin of trunk, except scrotum Seborrheic keratosis Inflamed seborrheic keratosis documented in this encounter [facility] Author Alicia Wilks [facility] Note Date/Time October 03, 2024 12: 30pm [facility] [address] [place] [address] Gastroenterology H&P Signed Patient: Tarah Briseno MR#: [id number] : 1950 Acct:[id number] Age/Sex: 74 / F Adm Date: 5 Loc: Room: Type: [facility] Attending Dr: Alicia Wilks MD Copies to: MD Jacqueline Sears APRN, HEATING TECHNICIAN~ Date of Service: 10/03/2024 HISTORY & PHYSICAL: [...] signed by Alicia Wilks MD> 10/03/24 1135 [facility] Work Phone: Hospital course Narrative No data available for this section [facility] Discharge instructions No data available for this section [facility] Orders* Referral to Gastroenterology Time Frame: 08/07/24, Location: None Selected [facility] Work Phone: Progress note No data available for this section [facility] reason for referral (narrative)No reason for referral information availableCincinnati [facility] Work Phone: Reason for visit Narrative* Outpatient Procedure (Routine) - Closed Specialty Diagnoses / Procedures Referred By Frankie amezcua Referred To Contact [facility] Diagnoses Eosinophilic esophagitis Esophageal lesion Procedures EGD - THERAPEUTIC, EUS, OR TUBE INTERVENTIONS EGD - THERAPEUTIC, EUS, OR TUBE INTERVENTIONS EGD DILATION GASTRIC/DUODENAL STRICTURE Jaclyn Stewart, [place].HEATING TECHNICIAN [address] [place] [address] Phone: tel: fax: [facility] [address] [place] [address] Referral ID Status Reason Start Date Expiration Date V isits Requested Visits Authorized [id number] Closed Auto-Generate d Referral 10/16/2024 10/16/2025 1 1 [facility] Summary Purpose Family History No Family History [...] End: January 10, 2024 Jacqueline Hernandez APRN NICK SETTER-C Attending Provider Act mecca Start: January 10, 2024 End: January 10, 2024 Team Status: Active Member Role Status Dates Jacqueline Hernandez APRN NICK SETTER-C Primary Care Provider Active Team Status: Inactive Member Role Status Dates Jacqueline Hernandez APRN NICK SETTER-C Primary Care Provider, Attending Provider Active Start: February 17, 2024 End: February 17, 2024 Team Status: Inactive Member Role Status Dates Jacqueline Hernandez APRN NICK SETTER-C Primary Care Provider, Attending Provider Active Start: June 12, 2024 End: June 12, 2024 Team Status: Inactive Member Role Status Dates Jacqueline Hernandez APRN NICK SETTER-C Primary Care Provider, Attending Provider Active Start: August 07, 2024 End: August 07, 2024 Fiberglass Tube Molder Relationship Specialty Start Date End Date Colby Escobar MD [address] [place] [address] PCP - General Family Medicine 07/21/23 Fiberglass Tube Molder Relationship Specialty Start Date End Date Colby Escobar MD [address] [place] [address], [place] [address] PCP - General Family Medicine 07/21/23 Team Status: Inactive Member Role Status Dates Jacqueline Hernandez APRN NICK SETTER-C Primary Care Provider, Referring Provider Active Start: September 06, 2024 End: September 06, 2024 [place] APRN Attending Provider Active Start: September 06, 2024 End: September 06, 2024 Fiberglass Tube Molder Relationship Specialty Start Date End Date Colby Escobar MD [address] [place] [address], [place] [address] PCP - General Family Medicine 07/21/23 Team Status: Inactive Member Role Status Dates Jacqueline Hernandez APRN NICK SETTER-C Primary Care Provider Active Start: October 03, 2024 End: October 03, 2024 Alicia Wilks MD Attending Provider Active Start: October 03, 2024 End: October 03, 2024 Team Status: Active Member Role Status Dates Jacqueline Hernandez APRN NICK SETTER-C Primary Care Provider Active Start: October 03, 2024 Alicia Wilks MD Attending Provider, Other Provider Active Start: October 03, 2024 Fiberglass Tube Molder Relationship Specialty Start Date End Date Raul Lewis MD [address] [place] [address] PCP - General 02/10/04 Team Status: Inactive Member Role Status Dates Jacqueline Hernandez APRN NICK SETTER-C Primary Care Provider Active Start: October 18, 2024 End: October 18, 2024 [place] APRN Attending Provider Active Start: October 18, 2024 End: October 18, 2024 Fiberglass Tube Molder Relationship Specialty Start Date End Date Raul Lewis MD [address] [place] [address] PCP - General 02/10/04 Fiberglass Tube Molder Relationship Specialty Start Date End Date Raul Lewis MD [address] [place] [address] PCP - General 02/10/04 Fiberglass Tube Molder Relationship Specialty Start Date End Date Raul Lewis MD [address] [place] [address] PCP - General 02/10/04 Team Status: Inactive Member Role Status Dates Jacqueline Hernandez APRN NICK SETTER-C Primary Care Provider Active Start: January 16, 2025 End: January 16, 2025 Jacqueline Hernandez APRN NICK SETTERKarleneC Attending Provider Act mecca Start: January 16, 2025 End: January 16, 2025 Fiberglass Tube Molder Relationship Specialty Start Date End Date Raul Lewis MD [address] [place] [address] PCP - General 02/10/04 Team Status: Inactive Member Role Status Dates Jacqueline Hernandez APRN NICK SETTER-C Primary Care Provider Active Start: January 28, 2025 End: January 28, 2025 [place] APRN Attending Provider Active Start: January 28, 2025 End: January 28, 2025 Fiberglass Tube Molder Relationship Specialty Start Date End Date Colby Escobar MD [address] [place] [address] PCP - General Family Medicine 07/21/23 Fiberglass Tube Molder Relationship Specialty Start Date End Date Colby Escobar MD [address] [place] [address] PCP - General Family Medicine 07/21/23 INFORMATION SOURCE (unrecogn ized section and content) DATE CREATED AUTHOR 05/19/2022 [facility] DATE CREATED AUTHOR AUTHOR'S ORGANIZ ATION 06/14/2024 [facility] DATE CREATED AUTHOR AUTHOR'S ORGANIZ ATION 10/14/2024 [facility] DATE CREATED AUTHOR AUTHOR'S ORGANIZ ATION 01/15/2025 [facility] DATE CREATED AUTHOR AUTHOR'S ORGANIZ ATION 02/11/2025 [facility] d[facility] Special[facility] EPIC Goals (unrecognized section [...] or prosecute any alcohol or drug abuse patient.[facility] Center[facility] the event this information is protected by the Federal Confidentiality of Alcohol and Drug Abuse Patient Records regulations: The Federal rules restrict any use of the information to criminally investigate or prosecute any alcohol or drug abuse patient.[facility] CenterIn the event this information is protected by the Federal Confidentiality of Alcohol and Drug Abuse Patient Records regulations: The Federal rules restrict any use of the information to criminally investigate or prosecute any alcohol or drug abuse patient.[facility] CenterIn the event this information is protected by the Federal Confidentiality of Alcohol and Drug Abuse Patient Records regulations: The Federal rules restrict any use of the information to criminally investigate or prosecute any alcohol or drug abuse patient.[facility] CenterIn the event this information is protected by the Federal Confidentiality of Alcohol and Drug Abuse Patient Records regulations: The Federal rules restrict any use of the information to criminally investigate or prosecute any alcohol or drug abuse patient.[facility] CenterIn the event this information is protected by the Federal Confidentiality of Alcohol and Drug Abuse Patient Records regulations: The Federal rules restrict any use of the information to criminally investigate or prosecute any alcohol or drug abuse patient.[facility] FOR RECORDS PERTAINING TO PATIENTS WHO ARE [...] BE BASED ON THE PRIMARY CLINICAL RECORDS. [facility] [employer] [facility]. provides no warranty or guarantee of the accuracy or completeness of information in this document.
== END 2025-03-06 13:08 | disposition home or self-care (01) ==
LOC: RAD 13:08
PROVIDERS: PCP Nurse Practitioner Family; Visit Provider Nurse Practitioner Family
DX: R07.81 Pleurodynia (principal)
CPT/HCPCS: 71101

== ENCOUNTER 2025-03-11 08:49 | Outpatient (OUT) | payer MEDICARE, SELFPAY ==
--- OUTSIDE RECORDS SUMMARY | 2014-06-10 03:29 | XMS_ITS | Encounter Summary ---
Author Organization [facility] Address [address] [facility], [address] [place] [address] Care Team Providers Care Commercial Assistant Name Role Phone Yaneth Lewis MD Primary Care Provider Unavailab le Encounter Details Date Type Department Care Team (Late st Contact Info) Description 06/10/2014 2:29 AM EST Hospital Encounter MTH PRE ADMIT [address] [phone] Gil Ross MD [address] [facility] [address] [facility] [address] [phone] Social History Tobacco Use Types Packs/Day Years Used Date Smoking Tobacco: Never Alcohol Use Standard Drinks/Week Comments No 0 (1 standard drink = 0.6 oz pur e alcohol) Comments No Sex and Gender Information Value Date Recorded Sex Assigned at Not on file Legal Sex Female 11:08 AM EST Gender Identity Not on file Sexual Orientation Not on file documented as of this encounter Last Filed Vital Signs Vital Sign Reading Time Taken Comments Blood Pressure 137/76 06/10/2014 9:24 AM EST Pulse 67 06/10/2014 9:24 AM EST Temperature 35.9 C (96.6 F) 06/10/2014 9:24 AM EST Respiratory Rate - - Oxygen Saturation 97% 06/10/2014 9:24 AM EST Inhaled Oxygen Concentration - - Weight 110.7 kg (244 lb) 06/10/2014 9:24 AM EST Height 164.5 cm (5' 4.75 ) 06/10/2014 9:24 AM ES T Body Mass Index 40.92 06/10/2014 9:24 AM EST documented in this encounter Plan of Treatment Not on file documented as of this encounter Procedures Procedure Name Priority Date/Time Associated Diagnosis Comments XR CHEST (2 VW) Routine 06/10/2014 10:08 AM EST MICROSCOPIC URINALYSIS Routine 06/10/2014 9:56 AM EST UA W/REFLEX CULTURE [employer] Label Print 06/10/2014 9:56 AM EST CBC WITH AUTO DIFFERENTIAL Routine 06/10/2014 9:56 AM EST TYPE AND SCREEN Routine 06/10/2014 9:56 AM EST documented in this encounter Results * XR Chest Standard TWO VW (06/10/2014 10:08 AM EST) Anatomical Region Laterality Modality Chest Radiographic Racheal ging Thoracic structure (body structure) 06/10/2014 10:08 AM EST Narrative 06/10/2014 10:23 AM EST FINAL Procedure: TRT Jun 10 2014 10:08AM [id number] CHEST PA AND LATERAL Reason for Exam: ^preop asthma FULL RESULT: REPORT: Chest PA and lateral INDICATION: Preoperative evaluation FINDINGS: The lungs are well expanded and clear bilaterally. No focal consolidation, pleural effusion or pneumothorax seen. Normal cardiac and mediastinal silhouettes. No free intraperitoneal air. Hypertrophic degenerative changes thoracic spine. IMPRESSION: Normal chest Report Transcribed by: [facility] on Jun 10 2014 10:23A Read by: YOAV TOM M.D. [id number] on Jun 10 2014 10:23A Electronically Signed by: DR. YOAV TOM M.D. on: Jun 10 2014 10:23A Procedure Note Yoav Tom MD - 06/10/2014 FINAL Procedure: TRT Jun 10 2014 10:08AM [id number] CHEST PA AND LATERAL Reason for Exam: ^preop asthma FULL RESULT: REPORT: Chest PA and lateral INDICATION: Preoperative evaluation FINDINGS: The lungs are well expanded and clear bilaterally. No focal consolidation, pleural effusion or pneumothorax seen. Normal cardiac and mediastinal silhouettes. No free intraperitoneal air. Hypertrophic degenerative changes thoracic spine. IMPRESSION: Normal chest Report Transcribed by: [facility] on Jun 10 2014 10:23A Read by: YOAV TOM M.D. [id number] on Jun 10 2014 10:23A Electronically Signed by: DR. YOAV TOM M.D. on: Jun 10 2014 10:23A Gil Ross MD IMG DIAGNOSTIC IMAGING ORDERA BLES Final Result * Microscopic Urinalysis (06/10/2014 9:56 AM EST) Pathologist [facility] - 06/10/2014 11:32 AM EST PN LAB WBC, UA 0 TO 2 0 - 5 /HPF 06/10/2014 11:32 AM EST PN LAB RBC, UA 0 TO 2 0 - 2 /HPF 06/10/2014 11:32 AM EST [facility] Casts UA NOT REPORTED 0 - 2 /LPF [facility] Crystals, UA NOT REPORTED NONE /HPF [facility] Epithelial Cells, UA 2 TO 5 0 - 25 /HPF 06/10/2014 11:33 AM EST [facility] Comment: Performed at [address] [place] [address] ([phone] CORRECTED ON 06/10 AT 1133: PREVIOUSLY REPORTED 0 TO 2 Renal Epithelial, UA NOT REPORTED 0 /HPF [facility] Bacteria, UA NOT REPORTED NONE [facility] Mucus, UA NOT REPORTED NONE [facility] Trichomonas NOT REPORTED NONE [facility] Amorphous, UA NOT REPORTED NONE [facility] Other Observations UA NOT REPORTED NREQ [facility] Yeast, UA NOT REPORTED NONE [facility] 06/10/2014 9:56 AM EST 06/10/2014 9:57 AM EST us Gil Ross MD URINE ORDERABLES Edited Resul t - Final [facility] [address] [place] [address] [place] [address], [facility] [[email or web address]] [phone] [facility] * TYPE AND SCREEN (06/10/2014 9:56 AM EST) Expiration Date 06/17/2014 4 11:12 AM EST [facility] Arm Band Number [id number] 4 11:12 AM EST [facility] ABO/Rh O POSITIVE 06/10/2014 11:12 AM EST [facility] Antibody Screen NEGATIVE 4 11:12 AM EST [facility] Comment: Performed at [address] [place] [address] ([phone] BLOOD SPECIMEN / Unknown 06/10/2014 9:56 AM EST 06/10/2014 9:57 AM EST us Gil Ross MD BLOOD BANK TEST ORDERABLES Fi nal Result [address] [address] [phone] [facility] * (ABNORMAL) UA W/REFLEX CULTURE (06/10/2014 9:56 AM EST) Color, UA YELLOW YEL 06/10/2014 11:32 AM EST [facility] Turbidity UA CLEAR CLEAR 06/10/2014 11:32 AM EST [facility] Glucose, Ur NEGATIVE NEG 06/10/2014 11:32 AM EST [facility] Bilirubin Urine NEGATIVE NEG 06/10/2014 11:32 AM EST [facility] Ketones, Urine NEGATIVE NEG 06/10/2014 11:32 AM EST [facility] Specific [place], UA 1.020 1.010 - 1.020 06/10/2014 11:32 AM EST [facility] Urine Hgb 1+(A) NEG 06/10/2014 11:32 AM EST [facility] pH, UA 6.0 5.0 - 9.0 06/10/2014 11:32 AM EST [facility] Protein, UA NEGATIVE NEG 06/10/2014 11:32 AM EST [facility] Urobilinogen, Urine Normal NORM 06/10/2014 11:32 AM EST [facility] Nitrite, Urine NEGATIVE NEG 06/10/2014 11:32 AM EST [facility] Leukocyte Esterase, Urine NEGATIVE NEG 06/10/2014 11:32 AM EST [facility] Comment: Performed at [address] [place] [address] ([phone] Urinalysis Comments NOT REPORTED [facility] Urine 06/10/2014 9:56 AM EST 06/10/2014 9:57 AM EST Gil Ross MD URINE ORDERABLES Final Result [facility] [address] [facility], [place] [address] [phone] [facility] * CBC auto differential (06/10/2014 9:56 AM EST) WBC 7.7 3.5 - 11.0 k/uL 06/10/2014 10:20 AM EST [facility] RBC 5.06 4.0 - 5.2 m/uL 06/10/2014 10:20 AM EST [facility] Hemoglobin 14.5 12.0 - 16.0 g/dL 06/10/2014 10:20 AM EST [facility] Hematocrit 44.2 36 - 46 % 06/10/2014 10:20 AM EST [facility] MCV 87.3 80 - 100 fL 06/10/2014 10:20 AM EST [facility] MCH 28.7 26 - 34 pg 06/10/2014 10:20 AM EST [facility] MCHC 32.8 31 - 37 g/dL 06/10/2014 10:20 AM EST [facility] RDW 15.1 12.1 - 15.2 % 06/10/2014 10:20 AM EST [facility] Platelets 289 140 - 450 k/uL 06/10/2014 10:20 AM EST [facility] MPV NOT REPORTED 6.0 - 12.0 fL [facility] Differential Type NOT REPORTED [facility] Seg Neutrophils 50 36 - 66 % 4 10:20 AM EST [facility] Lymphocytes 37 24 - 44 % 06/10/2014 10:20 AM EST [facility] Monocytes % 9 0 - 12 % 06/10/2014 10:20 AM EST [facility] Eosinophils % 4 0 - 8 % 06/10/2014 10:20 AM EST [facility] Basophils % 0 0 - 2 % 06/10/2014 10:20 AM EST [facility] Neutrophils Absolute 3.90 1.8 - 7.7 k/uL 06/10/2014 10:20 AM EST [facility] Lymphocytes Absolute 2.80 1.0 - 4.8 k/uL 06/10/2014 10:20 AM EST [facility] Monocytes Absolute 0.70 0.0 - 1.0 k/uL 06/10/2014 10:20 AM EST [facility] Eosinophils Absolute 0.30 0.0 - 0.4 k/uL 06/10/2014 10:20 AM EST [facility] Basophils Absolute 0.00 0.0 - 0.2 k/uL 06/10/2014 10:20 AM EST PN LAB Comment: Performed at [address] [place] [address] ([phone] WBC Morphology NOT REPORTED [facility] RBC Morphology NOT REPORTED [facility] Platelet Estimate NOT REPORTED [facility] BLOOD SPECIMEN / Unknown 06/10/2014 9:56 AM EST 06/10/2014 9:57 AM EST us Gil Ross MD HEMATOLOGY ORDERABLES Final R esult [address] [address], [facility] [[email or web address]] [phone] [facility] documented in this encounter Visit Diagnoses Not on filedocumented in this encounter Care Teams Commercial Assistant Relationship Specialty Start Date End Date Yaneth Lewis MD [address] [place] [address] PCP - General 06/05/14 documented as of this encounter
--- OUTSIDE RECORDS SUMMARY | 2025-03-11 08:52 | XMS_ITS | Clinical Summary ---
Author Organization [facility] Address [address] [facility] [place] [id number] Phone Care Team Providers Care Fast Food Team Member Name Role Phone Unavailable Primary Care Provider [...]
--- OUTSIDE RECORDS SUMMARY | 2025-03-11 08:52 | XMS_ITS | Encounter Summary ---
Author Organization [facility] Address [address] [place] [address] Care Team Providers Care Basting Marker Name Role Phone Colby Escobar MD Primary Care Provider [phone] Encounter Details Date Type Department Care Team (Late st Contact Info) Description 11/01/2023 Orders Only [facility] [address] [place] [address] Destiny Doss MA Social History Tobacco Use [...] [facility] [address] [place] [phone] Yancy Carmichael PA [address] [address] documented as of this encounter Visit Diagnoses Not on filedocumented in this encounter Care Teams Basting Marker Relationship Specialty Start Date End Date Colby Escobar MD [address] [place] [address] PCP - General Family Medicine 07/21/23 documented as of this encounter
--- OUTSIDE RECORDS SUMMARY | 2025-03-11 08:52 | XMS_ITS | Encounter Summary ---
Author Organization [facility] Address [address] [place] [address] Care Team Providers Care Data Coder Operator Name Role Phone Colby Escobar MD Primary Care Provider [phone] Encounter Details Date Type Department Care Team (Late Contact Info) Description 12/17/2022 Abstract [facility] [address] [place] [address] Yancy Carmichael PA [address] [facility] [address] [place] [address] Social History Tobacco Use Types [...] 02/10/2026 10:00 AM EDT Office Visit [facility] [address] [place] [phone] Yancy Carmichael PA [address] [facility] [address] [place] [address] documented as of this encounter Visit Diagnoses Not on filedocumented in this encounter Care Teams Data Coder Operator Relationship Specialty Start Date End Date Colby Escobar MD [address] [place] [address] PCP - General Family Medicine 07/21/23 documented as of this encounter
--- OUTSIDE RECORDS SUMMARY | 2025-03-11 08:52 | XMS_ITS | Clinical Summary ---
Author Organization [facility] Address [address] [place] [address] Care Team Providers Care Central Office Operator Name Role Phone Colby Escobar MD Primary Care Provider [phone] Allergies Active Allergy Reactions Criticality Noted Date Comments Acetaminophen Low 07/21/2023 Other Reaction(s): Unknown Iodine Anaphylaxis High 12/20/2022 Latex Hives 12/20/2022 Other 04/06/2004 rash rash, skin pills Medications albuterol HFA (Proventil HFA) 90 mcg/act inhaler Take by mouth 3 Active atorvastatin (Lipitor) 40 MG tabletIndications:O ther hyperlipidemia Take 1 tablet (40 mg) by mouth Daily 90 tablet 3 4 Active levothyroxine (Synthroid) 25 MCG tabletIndications:H ypothyroidism, unspecified type Take 1 tablet (25 mcg) by mouth in the morning. Take before meals. 90 tablet 3 4 Active omeprazole (PriLOSEC) [address] capsule Take 40 mg by mouth in the morning and 40 mg in the evening. 5 07/16/20 25 Active Active Problems Problem Noted Date Diagnosed Date Other hyperlipidemia 10/25/2023 Mild intermittent asthma without complication Acquired hypothyroidism 10/25/2023 Class 2 obesity without serious comorbidity in a dult 10/25/2023 Encounters Date Type Department Care Team Description 02/11/2025 10:00 AM EDT Office Visit [facility] [address] [place] [phone] Yancy Carmichael, PA Melanocytic nevus of trunk (Primary Dx); Seborrheic keratosis; Inflamed seborrheic keratosis 02/11/2025 Bamboo flowsheet [facility] [address] [place] [address] Yancy Carmichael PA 02/11/2025 Travel from Last 3 Months Social History Tobacco [...] Sign Reading Time Taken Comments Blood Pressure 126/72 10/25/2023 1:28 PM EDT Pulse 76 10/25/2023 1:28 PM EDT Temperature 36.3 C (97.4 F) 10/25/2023 1:28 PM EDT Respiratory Rate 18 10/25/2023 1:28 PM EDT Oxygen Saturation 97% 10/25/2023 1:28 PM EDT Inhaled Oxygen Concentration - - Weight 109 kg (239 lb 3.2 oz) 10/25/2023 1:28 PM EDT Height 165.1 cm (5' 5 ) 10/25/2023 1:28 PM EDT Body Mass Index 39.8 10/25/2023 1:28 PM EDT Plan of Treatment Upcoming Encounters Date Type Department Care Team (Late st Contact Info) Description 02/10/2026 10:00 AM EDT Office Visit [facility] [address] [place] [address] Yancy Carmichael PA [address] [place] [address] Health Maintenance Due Date Last Done Comments CT Colonography 1950 Colonoscopy 1950 FIT 1950 FOBT 1950 Sigmoidoscopy 1950 Mammogram 1992 Pneumococcal Vaccine: 65+ Ye ars (2 of 2 - PCV) 04/28/2015 04/28/2014, 03/31/2014 Influenza Vaccine (#1) 2025 , 03/30/2022, 04/24/2021, Additional history exists Colorectal Cancer Screening 06/26/2027 FIT-DNA 06/26/2027 06/26/2024 Procedures Procedure Name Priority Date/Time Associated Diagnosis Comments CRYOTHERAPY SKIN LESION Routine 02/12/20 10:14 AM EDT Inflamed seborrheic keratosis from Last 3 Months Results * Cryotherapy, skin lesion (02/11/2025 10:14 AM EDT) Yancy [facility] PROCEDURE ORDERABLES Fin al Result from Last 3 Months Insurance [employer] MEDICARE [employer]VANTAGE Care Teams Central Office Operator Relationship Specialty Start Date End Date Colby Escobar MD [address] [place] [address] PCP - General Family Medicine 07/21/23
--- OUTSIDE RECORDS SUMMARY | 2025-03-11 08:52 | XMS_ITS | Encounter Summary ---
Author Organization [facility] Address [address] [facility] [place] [address] Care Team Providers Care Strategic Sourcing Consultant Name Role Phone Yaneth Lewis MD Primary Care Provider [facility] Encounter Details Date Type Department Care Team (Late st Contact Info) Description 06/19/2014 Post-op Telephone [facility] General Surgery [address] [place], [place] [phone] Akilah Byrd RN Social History Tobacco Use [...] on filedocumented in this encounter Care Teams Strategic Sourcing Consultant Relationship Specialty Start Date End Date Yaneth Lewis MD [address] [place] [address] PCP - General 06/05/14 documented as of this encounter
--- OUTSIDE RECORDS SUMMARY | 2025-03-11 08:52 | XMS_ITS | Clinical Summary ---
Author Organization [facility] Address [address] [facility] [place] [address] Care Team Providers Care Sales Representative Advertising Name Role Phone Yaneth Lewis MD Primary [...] 8:48 AM 06/18/2014 2:42 PM Care Teams Sales Representative Advertising Relationship Specialty Start Date End Date Yaneth Lewis MD [address] [place] [address] PCP - General 06/05/14
--- OUTSIDE RECORDS SUMMARY | 2025-03-11 08:52 | XMS_ITS | Clinical Summary ---
Author Organization [facility] Address [address] [place], [place] [phone] Care Team Providers Care Customer Solutions Supervisor Name Role Phone Yaneth Lewis MD Primary [...] Team Description 01/17/2025 Results Follow-Up Gastroenterology [address] [place] [phone] Jaclyn Andrews APRN.PSYCHIATRIC CLINICIAN Results 01/10/2025 1:01 PM EDT Anesthesia Event Gastroenterology [address] [place] [phone] Luis Quick MD 01/10/2025 11:47 AM EDT - 01/10/2025 11:59 PM EDT Hospital Encounter Gastroenterology [address] [place] [address] Vicky Downing MD Eosinophilic esophagitis [K20.0] Discharge Disposition: Home 01/10/2025 Travel 01/03/2025 GI Preprocedure Call Gastroenterology [address] [place] [address] Josefina Cheema RN from Last [...] risk 8 10/16/2024 Data from: https://www.[email or web address].[facility]/. Last address used for calculation [address] 10/16/2024 Comments No [...] AM EDT Appointment Gastroenterology [address] [place] [address] Vicky Downing MD [address] [place] [address] Eosinophilic esophagitis [K20.0] 05/03/2025 11:00 AM EDT Office Visit Gastroenterology [address] [address] Jaclyn Andrews, CLEVEALND.PSYCHIATRIC CLINICIAN [address] [place] [address] esophageal tumor Health Maintenance Due Date Last [...] EDT) Case Report Surgical Pathology Report Case: [id number] Authorizing Provider: Vicky Downing MD Collected: 01/10/2025 01:24 PM Ordering Location: Gastroenterology Received: 01/10/2025 04:46 PM Pathologist: Leonid Garcia MD Specimens: A) - Esophagus, Biopsy, r/o polynoma B) - Esophagus, Biopsy, r/o EOE C) - Esophagus, Biopsy, r/o EOE 01/14/2025 11:[address] [facility] FINAL DIAGNOSIS A. Esophagus, [...] per high-power field). 01/14/2025 11:[address] [facility] at 1159 EDT Gross [...] 2025 8:35 PM Gross examination performed at [facility], [address] [place] [address], [place] [address] 01/14/2025 11:59 AM EDT [facility] Performing Lab Diagnostic interpretation performed at: [facility], [address] [place] [address] CLIA# [id number] Balance Wheel Arm Burnisher: Rogelio Levine MD 01/14/2025 11:[address] [facility] Disclaimer Laboratory Developed Test (LDT) Disclaimer: Performance characteristics of immunohistochemical , immunofluorescent, and chromogenic in-situ hybridization tests have been determined by the performing laboratory within [facility]'s [facility] Pathology and Laboratory Medicine Department ([facility], [facility], [facility], [facility], [facility], [facility], or [facility]) in a manner consistent with CLIA requirements. One or more of these tests may not have been cleared or approved by the FDA. [facility] is regulated under CLIA as qualified to perform high-complexity testing. These tests are used for clinical purposes. These should not be regarded as investigational or for research. Positive and negative controls stain appropriately. 01/14/2025 11:59 AM EDT [facility] Tissue SPECIMEN FROM ESOPHAGUS OBTAINED [...] Vicky Downing MD SURGICAL PATHOLOGY Final Result [facility] [address] [place] [address], [facility] [place] [address], * EGD - THERAPEUTIC, EUS, OR TUBE INTERVENTIONS (01/10/2025 12:57 PM EDT) Anatomical Region Laterality Modality Other 01/10/2025 12:5 7 PM EDT Narrative 01/10/2025 1:35 PM EDT A31 Gastrointestinal Endoscopy Patient Name: Tarah Temple Procedure Date: 01/10/2025 12:57 PM Date of : 1950 Admit Type: Outpatient Age: 74 Room: A3 PROC 3 Gender: Female Note Status: Finalized Attending MD: Vicky Downing MD, [id number] Procedure: Upper GI endoscopy Indications: Dysphagia Providers: [...] referring provider. Procedure Code(s): --- Professional --- 26063, 22, Esophagogastroduodenoscopy, flexible, transoral; with removal of tumor(s), polyp(s), or other lesion(s) by snare technique 91930, Esophagogastroduodenoscopy, flexible, transoral; with insertion of guide wire followed by passage of dilator(s) through esophagus over guide wire 62674, 59,51, Esophagogastroduodenoscopy, flexible, transoral; with biopsy, single or multiple Diagnosis Code(s): --- Professional --- K22.89, Other specified disease of esophagus K44.9, Diaphragmatic hernia without obstruction or gangrene R13.10, Dysphagia, unspecified CPT copyright 2020 [employer]. All rights reserved. The codes documented in this report are preliminary and upon principal clerk review may be revised to meet current compliance requirements. Attending Participation: I personally performed the entire procedure. Scope In: 1:09:54 PM Scope Out: 1:26:20 PM MD Vicky Ribera MD 01/10/2025 1:32:34 PM This report has been signed electronically by Vicky Downing MD Number of Addenda: 0 Note Initiated On: 01/10/2025 12:57 PM us Jaclyn Tarangoon DEBIT AGENT.PSYCHIATRIC CLINICIAN DIGESTIVE DISEASE Fin al Result * PT ED PATIENT INFORMATION (12/11/2024) 12/11/2024 Narrative AMISHA - 01/11/2025 Provider CHRIS your patient TARAH TEMPLE has not started their Amisha program, time has . Amisha program: PATIENT SAFETY INSTRUCTIONS FOR HEALTHCARE SETTINGS us Vicky Downing MD AMISHA Final Result Performing Organization Address [facility] Co de Phone Number AMISHA * PT ED DIGESTIVE DISEASE (12/11/2024) 12/11/2024 Narrative AMISHA - 01/11/2025 Provider CHRIS your patient TARAH TEMPLE has not started their Amisha program, time has . Amisha program: UPPER GI ENDOSCOPY (EGD) us Vicky Downing MD AMISHA Final Result AMISHA * (ABNORMAL) COMP METABOLIC PANEL (04/06/2004 5:32 PM EDT) Protein, Total 7.1 6.0 - 8.4 g/dL [facility] Albumin 4.2 3.5 - 5.0 g/dL [facility] Calcium 9.7 8.5 - 10.5 mg/dL [facility] Bilirubin, Total 0.4 0.0 - 1.5 mg/dL [facility] Alkaline Phosphatase 73 40 - 150 U/L [facility] AST 13 7 - 40 U/L [facility] Glucose 83 65 - 100 mg/dL [facility] BUN 8 8 - 25 mg/dL [facility] Creatinine 0.8 0.7 - 1.4 mg/dL [facility] Sodium 139 132 - 148 mmol/L [facility] Potassium 4.0 3.5 - 5.0 mmol/L [facility] Chloride 102 98 - 110 mmol/L [facility] CO2 33(A) 24 - 32 mmol/L [facility] Anion Gap 4 0 - 15 mmol/L [facility] ALT 9 0 - 45 U/L [facility] Blood specimen (specimen) BLOOD SPECIMEN / Unknown 04/06/2004 5:32 PM EDT [facility] ([facility] Final Result [facility] [address] [place] [address] from Last 3 Months or Most Recently Relevant to Health Maintenance Insurance [employer] Care Teams Customer Solutions Supervisor Relationship Specialty Start Date End Date Yaneth Lewis MD [address] [facility] [place] [address] PCP - General 02/10/04 [place], GERMAINE [address] [facility] [address] [place] [address] Family Medicine 01/22/25
--- NOTE | 2025-03-11 08:56 | MM_ITS ---
Patient Name: TARAH BRISENO MR#: [id number] : 1950 Exam Date: 03/11/2025 Ordering Doctor: GRACIA DAVEY TRAFFIC CHIEF-C RADIOLOGY REPORT PROCEDURE: MM TOMOSYNTHESIS SCREENING BI COMPARISON: MM TOMOSYNTHESIS SCREENING BI, 05/13/2023. MG MAMM SCREEN 3D ANH CAD, 05/12/2022. MG MAMM SCREEN 3D ANH CAD, 05/11/2021. MG MAMM ANH SCRN W CAD DIG, 05/23/2013. INDICATIONS: Screening Calculator Name NCI Breast Cancer Risk Assessment Tool 5 Year Breast Cancer Risk 2.70% Lifetime Breast Cancer Risk 6.90% Personal Breast Cancer No Personal Ovarian Cancer No Treatments None Family Cancers Grandmother-maternal with breast cancer at age 90; Mother with cervical cancer at age ~45. LOCATION: [facility] BREAST COMPOSITION: There are scattered areas of fibroglandular density. FINDINGS: DIAGNOSTIC CATEGORY 1--NEGATIVE. RIGHT BREAST: No significant suspicious finding. LEFT BREAST: No significant suspicious finding. RECOMMENDATIONS: ROUTINE MAMMOGRAM AND CLINICAL EVALUATION IN 12 MONTHS. Dictated by: Sreedhar Snell DO on 03/11/2025 at 10:15 Approved by: Sreedhar Snell DO on 03/11/2025 at 10:16
--- OUTSIDE RECORDS SUMMARY | 2025-03-11 09:03 | XMS_ITS | CCD ---
Author Organization [facility] Care Team Providers Care Branch Office Manager Name Role Phone RAUL LEWIS Primary [...] Consulting Unavailable RAUL LEWIS Primary Care Physician Colby Escobar. Primary Care Physician JACQUELINE HERNANDEZ Primary Care Physician Antonio AMBRIZ Attending Unavailable Antonio AMBRIZ Attending Unavailable Colby Escobar. Attending Unavailable Colby Escobar. Attending Unavailable Colby Escobar Attending Unavailable JACQUELINE HUFF Attending Unavailable Antonio AMBRIZ Attending Unavailable Antonio AMBRIZ Attending Unavailable Antonio AMBRIZ Admitting Unavailable Antonio AMBRIZ Referring Unavailable Colby sEcobar MD Primary Care Provider Jacqueline Hernandez APRN Primary Care Provider Alicia Wilks MD Attending Provider [phone] Asajacob, Imad Admitting Unavailable Lashaun Imjacob Attending Unavailable Jacqueline Hernandez Primary Care Unavailable Raul Lewis MD Primary Care Provider RAUL LEWIS EDWARD Primary Care Unavailable LUIS CARSON Attending UnavailJACLYN Acosta Referring Unavailable WENDY RAUL ALANIZ Primary Care Unavailable JACLYN STEWART Attending Unavailable Jacqueline Hernandez APRN Primary Care Provider [place] APRN Attending Provider Jacqueline Hernandez APRN Attending Provider [phone] Jacqueline Hernandez APRN Primary Care Provider [place] APRN Attending Provider FATUMA PHIPPS Attending Unavailable FATUMA PHIPPS Attending Unavailable FATUMA PHIPPS Attending Unavailable SAMUEL SHORE Attending Unavailable YANCY CARR Attending Unavailable Allergies Allergy Classification Reported Allergen(s) Allergy Type Date of Onset Reaction(s) Facility (20 sources) Iodine; Translations: [iodine] Drug Allergy 04-06-20 04 Unknown (qualifier value), Anaphylactic shock, Anaphylaxis [facility] (20 sources) Latex; Translations: [latex] Propensity to adverse reactions to substance 12-21-19 23 Unknown (qualifier value), Hives [facility] (1 source) Iodine (And Iodine Containting Drugs) Drug allergy (disorder) [facility] Repository (2 sources) Acetaminophen; Translations: [acetaminophen] Drug Allergy Unknown (qualifier value) [facility] (1 source) Acetaminophen / Codeine; Translations: [Tylenol with Codeine] Drug Allergy [facility] Repository (1 source) Naproxen; Translations: [Naprosyn] Drug Allergy [facility]ository (12 sources) Acetaminophen Drug Allergy 07-21-19 24 [facility] (14 sources) Other; Translations: [OTHER] Propensity to adverse reactions 04-06-20 04 [facility] (1 source) Iodine Drug Allergy 10-04-19 25 [facility] Repository Medications Current Medications Medication Drug Class(es) Dates Sig (Normalized) Sig (Original) [id number] 200 actuat albuterol 0.09 mg/actuat metered dose inhaler (20 sources) beta2-Adrenergic Agonist Start: 04-06-2023 take 2 puff(s) by mouth every four hours Proventil HFA 90 mcg/inh Aerosol 2 puff(s), Oral, q4hr Shortness of breath or wheezing, 1 kit(s), Refill(s) 0, [facility] [id number], 163, cm, 04/06/23 15:43:00 EDT, Height/Length Dosing, [...] DAILY, # 90 tab(s), Refills(s) 0, Pharmacy: [facility] [id number], 163, cm, 04/06/23 15:43:00 EDT, Height/Length Dosing, 107, kg, 04/06/23 15:43:00 EDT, Weight Dosing Start Date: 06/01/23 Status: Ordered Start: 02-23-2023 take 1 tablet by raf th once daily atorvastatin 40 mg Tab 40 mg = 1 tab(s), Oral, Daily, # 90 tab(s), Refills(s) 0, Pharmacy: [facility] [id number], 165, cm, 01/11/23 9:47:00 EDT, Height/Length Dosing, 115, kg, 01/11/23 9:47:00 EDT, Weight Dosing Start Date: 02/23/23 Status: Ordered Start: 05-03-2022 take 1 tablet by [facility] once daily atorvastatin 40 mg Tab 40 [...] day(s), # 14 cap(s), Refills(s) 0, Pharmacy: [facility] [id number], 165, cm, 02/15/24 13:14:00 EDT, Height/Length Dosing, 106, kg, 02/15/24 13:14:00 EDT, Weight Dosing Start Date: 02/15/24 Stop Date: 02/22/24 Status: Ordered Start: 01-19-2022 take 1 capsule by [facility] once daily Keflex 500 mg Cap 500 mg = 1 cap(s), Oral, Daily, Take 1 tab day before procedure and 1 after procedure, # 2 cap(s), Refills(s) 0, Pharmacy: [facility] [id number], 165, cm, 01/19/22 9:47:00 EDT, Height/Length Dosing, 115, kg, 01/19/22 9:47:00 EDT, Weight Dosing Start Date: 01/19/22 Status: Ordered Start: 05-07-2021 take 1 capsule by [facility] twice daily Keflex 500 mg Cap 500 mg = 1 cap(s), Oral, BID, pt to start day prior to procedure., # 14 cap(s), Refills(s) 0, Pharmacy: [place] [id number], 165, cm, 05/07/21 10:07:00 EDT, Height/Length Dosing, 115, kg, 05/07/21 10:07:00 EDT, Weight Dosing Start Date: 05/07/21 Status: Ordered ciclopirox 7.7 mg/ml topical cream (9 sources) Start: 06-12-2024 ciclopirox top ical 0.77% cream 1 kylie, Topical, BID, Refill(s) 0 Start Date: 06/12/24 Status: Ordered Start: 10-26-2022 ciclopirox top ical 0.77% cream 1 kylie, Topical, BID, 30 gram, Refill(s) 3, [facility] [id number], 165.1, cm, 09/29/22 10:13:00 EDT, Height/Length Dosing, 109.8, kg, 09/29/22 10:13:00 EDT, Weight Dosing Start Date: 10/26/22 Status: Ordered ibuprofen 600 mg oral tablet (15 sources) Nonsteroidal Anti-inflammatory Drug Start: 04-14-2023 take 1 tablet by mouth every six hours as needed for pain ibuprofen 600 mg Tab 600 mg = 1 tab(s), Oral, q6hr, PRN Pain/Fever, # 30 tab(s), Refills(s) 0, Pharmacy: [facility] [id number], 163, cm, 04/06/23 15:43:00 EDT, Height/Length Dosing, [...] Daily, # 30 tab(s), Refills(s) 2, Pharmacy: [facility] [id number], 165, cm, 11/12/21 11:38:00 EDT, Height/Length Dosing, [...] pain, # 12 tab(s), Refills(s) 0, Pharmacy: [facility] [id number], 165, cm, 10/06/23 11:01:00 EDT, Height/Length Dosing, [...] DAILY, # 90 tab(s), Refills(s) 0, Pharmacy: [facility] [id number], 165, cm, 10/06/23 11:01:00 EDT, Height/Length Dosing, [...] Daily, # 90 tab(s), Refills(s) 1, Pharmacy: [facility] [id number], 163, cm, 04/06/23 15:43:00 EDT, Height/Length Dosing, 107, kg, 04/06/23 15:43:00 EDT, Weight Dosing Start Date: 05/10/23 Status: Ordered Start: 10-29-2022 take 1 tablet by raf once daily levothyroxine 25 mcg (0.025 mg) Tab 25 mcg = 1 tab(s), Oral, Daily, # 90 tab(s), Refills(s) 1, Pharmacy: [facility] [id number], 165.1, cm, 09/29/22 10:13:00 EDT, Height/Length Dosing, [...] Reference Range Facility No Panel Informationon 02-11 [facility] ANES POSTPROC EVALon 025 ANES POSTPROC EVAL HNO ID: [id number] Author: LUIS CARSON MD Service: ? Author Type: Anesthesiologist Type: Anesthesia Postprocedure Evaluation Filed: 01/10/2025 14:35 Note Text: POST ANESTHESIA EVALUATION NOTE : 1950 Procedure Summary Date: 01/10/25 Room / Location: Gastroenterology Anesthesia Start: 1301 Anesthesia Stop: 1338 Procedure: EGD - THERAPEUTIC, EUS, OR TUBE INTERVENTIONS Diagnosis: Eosinophilic esophagitis Esophageal lesion (Dysphagia) Scheduled Providers: Vicky Downing MD; Ranjana Arceo APRN.METEOROLOGICAL ENGINEER; Luis Carson MD Responsible Provider: Luis Carson [...] January 10, 2025 TIME: 2:35 PM CSN: [id number] Normal [facility] ANES PRE-OPon 01-10-2025 ANES PRE-OP HNO ID: [id number] Author: LUIS CARSON MD Service: ? Author Type: Anesthesiologist Type: Anesthesia Preprocedure Evaluation Filed: 01/10/2025 12:13 Note Text: ANESTHESIOLOGY DAY OF SURGERY NOTE : 1950 Procedure Information Date/Time: 01/10/25 1300 Scheduled providers: Vicky Downing MD; Ranjana Arceo APRN.METEOROLOGICAL ENGINEER; Luis Carson MD Procedure: EGD - THERAPEUTIC, [...] and consent discussed: yes. Patient / Responsible Republican agrees to proceed: yes Patient / Surrogate [...] January 10, 2025 TIME: 12:12 PM CSN: [id number] Normal [facility] EGD Study observation Quinton ram 01-10-2025 A31 Gastrointestinal Endoscopy Patient Name: Tarah Briseno Procedure Date: 01/10/2025 12:57 PM Date of : 1950 Admit Type: Outpatient Age: 74 Room: [address] Gender: Female Note Status: Finalized Attending MD: Vicky Downing MD, [id number] Procedure: Upper GI endoscopy Indications: Dysphagia Providers: [...] Return t (more content not included)... PROVATION [facility] Radiology Study observation (narrative) [facility] NURSING PROGon 01-10-2025 NURSING PROG HNO ID: [id number] Author: ARBEN DESOUZA RN Service: Nursing Author [...] Electronically Signed By: Arben Desouza RN Normal [facility] NURSING PROG HNO ID: [id number] Author: GENEVIEVE JARA RN Service: ? Author [...] GENEVIEVE JARA RN In Department: GASTROENTEROLOGY Normal [facility] Pathology biopsy report Ed (Tiss)on 01-10-2025 AP DISCLAIMER Normal [facility] Comment on above: Order Comment: Rozina kauffman Type: TISSUE SPECIMEN Ordering Facility: [facility] Address: [address] [place] [address] Result Comment: Moriah kirk Developed Test (LDT) Disclaimer: Performance characteristics of immunohistochemical, immunofluorescent, and chromogenic in-situ hybridization tests have been determined by the performing laboratory within [facility]'s [facility] Pathology and Laboratory Medicine Department ([facility], [facility], [facility], [facility], [facility], [facility], or [facility]) in a manner consistent [...] appropriately. Performed By: #### 6 6121-5 #### [facility] CLIA [id number] [address] [place] [address] OF [facility] CLIA [id number] [address] [place] [address] OF [place] CASE REPORT Normal [facility] Comment on above: Order Comment: Rozina kauffman Type: TISSUE SPECIMEN Ordering Facility: [facility] Address: [address] [place] [address] Result Comment: Surg ica Pathology Report Case: [id number] Authorizing Provider: Vicky Downing MD Collected: 01/10/2025 01:24 PM Ordering Location: Gastroenterology Received: 01/10/2025 04:46 PM Pathologist: Leonid Garcia MD Specimens: A) - Esophagus, Biopsy, r/o polynoma B) - Esophagus, Biopsy, r/o EOE C) - Esophagus, Biopsy, r/o EOE Performed By: #### 6 6121-5 #### [facility] CLIA [id number] [address] [place] [address] [place] [facility] CLIA [id number] [address] [place] [address] [place] FINAL DIAGNOSIS Normal [facility] Comment on above: Order Comment: Speci men Type: TISSUE SPECIMEN Ordering Facility: [facility] Address: [address] [place] [address] Result Comment: A. E sophagus, polyp, biopsy: [...] EDT Performed By: #### 6 6121-5 #### [facility] CLIA [id number] [address] [place] [address] [place] [facility] CLIA [id number] [address] [place] [address] [place] [facility]FORM[facility] LAB Normal [facility] Comment on above: Order Comment: Speci men Type: TISSUE SPECIMEN Ordering Facility: [facility] Address: [address] [place] [address] Result Comment: Diag nostic interpretation performed at: [facility], [address] [place] [address] CLIA# [id number] Welder/Fitter: Rogelio Levine MD Performed By: #### 6 6121-5 #### [facility] CLIA [id number] [address] [place] [address] [place] [facility] CLIA [id number] [address] [place] [address] [place] GROSS DESCRIPTION Normal [facility] Comment on above: Order Comment: Speci men Type: TISSUE SPECIMEN Ordering Facility: [facility] Address: [address] [place] [address] Result Comment: A. E sophagus, Biopsy Received [...] Received in formalin are multiple pieces of alacraz, soft tissue aggregating to 0.7 x 0.2 x 0.1 cm. Totally submitted in one cassette. SS January 10, 2025 8:35 PM Gross examination performed at [facility], [address] [place] [address] Performed By: #### 6 6121-5 #### [facility] CLIA [id number] [address] [place] [address] LAB CLIA [id number] [address] [place] [address] Upper GI endoscopyon 06-26-2 025 Upper GI endoscopy A31 Gastrointestinal Endoscopy Patient Name: Tarah Briseno Procedure Date: 01/10/2025 12:57 PM Date of : 1950 Admit Type: Outpatient Age: 74 Room: [place] [address] Gender: Female Note Status: Finalized Attending MD: Vicky Downing MD, [id number] Procedure: Upper GI endoscopy Indications: Dysphagia Providers: [...] referring provider. Procedure Code(s): --- Professional --- 26326, 22, Esophagogastroduodenoscopy, flexible, transoral; with removal of tumor(s), polyp(s), or other lesion(s) by snare technique 81251, Esophagogastroduodenoscopy, flexible, transoral; with insertion of guide wire followed by passage of dilator(s) through esophagus over guide wire 53587, 59,51, Esophagogastroduodenoscopy, flexible, transoral; with biopsy, single or multiple Diagnosis Code(s): --- Professional --- K22.89, Other specified disease of esophagus K44.9, Diaphragmatic hernia without obstruction or gangrene R13.10, Dysphagia, unspecified CPT copyright 2020 [employer]. All rights reserved. The codes documented in this report are preliminary and upon elementary principal review may be revised to baljinder (more content not included)... Normal [facility] NURSING PROGon 01-03-2025 NURSING PROG HNO ID: [id number] Author: AWA LEMON RN Service: ? Author [...] have family/friend present for procedure transport home:Patient/patient community representative was told that if they do [...] area. Any barriers to Patient learning: Patient/Patient Film Recordist responded appropriately on phone. Type of instruction given: Verbal by telephone contact. KATIA Al [facility] No Panel Informationon 10-18 [facility] 10-03-2024 L ------- Specimen: [id number] Received: 10/03/24 Status: THEODORA Love Num: [id number] Spec Type: Surgical Subm Dr: Alicia Wilks MD Tissues: A Esophagus Biopsy (ESOPH LESION) B Esophagus Biopsy (ESOPH BX) Procedures: [place] PETERSON/José L4/2 Age/ Patient Sex Location Account Attending Physician Tarah Briseno 74/F [id number] Alicia Wilks MD SPEC NUM: [id number] RECD: 10/03/24 STATUS: THEODORA LOVE NUM: [id number] CRYSTAL: 10/03/24 [facility] DR: Alicia Wilks MD ENTERED: 10/03/[address] [facility] [address]: SPEC TYPE: Surgical DEPT: S ENTERED BY: [id number] RECV BY: [id number] ORDERED: HE/4, Gross/Micro L4/2 ORDERED: HE/4, Gross/Micro [...] submitted in a single cassette. (1, ns, [id number] A) LEONELA Specimen: [id number] Received: 10/03/24 Status: THEODORA Love Num: [id number] Spec Type: Surgical Subm Dr: Alicia Wilks MD Tissues: A Esophagus Biopsy (ESOPH LESION) B Esophagus Biopsy (ESOPH BX) Procedures: HE/4, Gross/Micro L4/2 Patient: Tarah Briseno [id number] (Continued) Specimen: [id number] Received: 10/03/24 (Continued) Gross Description (Continued) Signed (signature on file) Phillip Sorensen Jr., MD 10/04/24 1142 Specimen: [id number] Received: 10/03/24 Status: THEODORA Love Num: [id number] Spec Type: Surgical Subm Dr: Alicia Wilks MD Tissues: A Esophagus Biopsy (ESOPH LESION) B Esophagus Biopsy (ESOPH BX) Procedures: ALKA/Pippa, Gross/Micro L4/2 Patient: Tarah Briseno [id number] (Continued) Specimen: [id number] Received: 10/03/24 (Continued) Gross Description (Continued) Part B is received in formalin labeled with the patients name, date of , and esophagea l BX are 3 pale rodas, focally erythematous, feathery, 0.2, 0.2 and 0.3 cm in greatest dimension tissue bits. The specimen is entirely submitted in a single cassette. (1, ns, [id number] B) JG Specimen: [id number] Received: 10/03/24 Status: THEODORA Love Num: [id number] Spec Type: Surgical Subm Dr: Alicia Wilks MD Tissues: A Esophagus Biopsy (ESOPH LESION) B Esophagus Biopsy (ESOPH BX) Procedures: HE/4, Gross/Micro L4/2 Patient: Tarah Briseno [id number] (Continued) Signed (signature on file) Phillip Sorensen Jr., MD 10/04/24 1142 Normal [facility] No Panel Informationon 09-12 [facility] No Panel Informationon 08-13 [facility] Urology Office/Clinic Noteon 06-12-2024 Urology Office/Clinic [...] E&M of Est. Patient Low 20-29 Min 26355 2. Other urethral stricture, female (N35.82: Other urethral stricture, female) S/p Cysto/UD 07/07/2022. Urethra normal during recent cysto (Botox) on 04/09/24. Ordered: E&M of Est. Patient Low 20-29 Min 74714 3. Asymptomatic microscopic hematuria (R31.21: Asymptomatic microscopic hematuria) IO UA shows small hgb, trace leuks. No UTI sx. No b.t. on recent scope. No gross hematuria. Ordered: E&M of Est. Patient Low 20-29 Min 96791 Urnls Dip Stick Auto w/o Microscopy POC 93453 Follow-up With When Contact Information [facility] Additional Instructions: Only if needed/new problems [...] virus vaccine, inactivated 03/24/2023 Recorded SARS-CoV-2 (COVID-19) mRNAMUL.ORD![id number] 03/24/2023 Recorded SARS-CoV-2 (COVID-19) mRNAMUL.ORD![id number] 07/19/2022 Recorded influenza virus vaccine, inactivated 03/30/2022 [...] 04-09-2024 Inpatient Patient Summary Inpatient Patient Summary [place] [id number] Clinical Summary Person Information Name: TARAH BRISENO Age: 73 Years : 1950 Sex: Female PCP: JACQUELINE HERNANDEZ CNP Marital Status: Race: White Ethnicity: Non- or Language: Fijian Visit Id: Visit Reason: URINARY INCONTINENCE Speciality: Acuity: Enc Type: Outpatient Med Service: Surgery Arrival: 04/09/2024 12:44:33 Discharge: Dispo Type: Address: [address] [place] [address] [id number] Provider Notes: Diagnosis: Problems Active Greater trochanteric [...] up: With: Address: When: Antonio AMBRIZ [address] [facility], [address], [place] [address] Business (1) Comments: Please make a follow up appointment with one of our nurse practitioners or physician assistants within two months with a bladder scan to assess your bladder emptying. Have a great day! Patient Education Information: EU - Cystoscopy with Botox Injection Discharge Instructions (Custom) [facility] Main OR Intraoperative Recor don 04-09-2024 Main OR Intraoperative Record Main OR Intraoperative Record IntraOp Document Type FTURO Summary Primary Physician: Antonio AMBRIZ MD Finalized Date/Time: 04/09/24 13:46:51 Pt. Name: TARAH BRISENO/Sex: 1950 Female Med Rec #: [id number] Physician: Antonio AMBRIZ MD Financial #: [id number] Pt. Type: O Room/Bed: / Admit/Disch: 04/09/24 12:44:33 - Institution: Case Times FTURO Entry 1 Patient Times In Room 04/09/24 13:26:00 Out Room 04/09/24 13:40:00 Procedure Times Start 04/09/24 13:28:00 Stop 04/09/24 13:35:00 Anesthesia Times Last Modified By: Jess SALINAS, Mendy Alonzo 04/09/24 13:35:38 General Comments: BOTOX LOT#: [id number], EXP DATE: 05/2026 BOTOX LOT# [id number], EXP. DATE: 05/2026 -Billy BOCANEGRA RN Case Attendance FTURO Entry 1 Entry 2 Entry 3 Case Attendee MADELIN CORDOBA, [place] Bocanegra RN, Jozef Hudson Role Performed Surgeon - Primary Field Kiln Burner - Primary Scrub - Primary Time In 04/09/24 13:26:00 04/09/24 13:26:00 04/09/24 13:26:00 Time Out 04/09/24 13:40:00 04/09/24 13:40:00 04/09/24 13:40:00 Procedure CYSTOSCOPY LOCAL BOTOX CYSTOSCOPY LOCAL BOTOX CYSTOSCOPY LOCAL BOTOX INJECTION(.) INJECTION(.) INJECTION(.) Comments Last Modified By: Jess SALINAS, eMndy Bocanegra RN, Mendy Bocanegra RN, Mendy Alonzo [...] By: Mendy Bocanegra RN 04/09/24 13:46 Normal [facility] Main OR Preoperative Recordo n 04-09-2024 Main OR Preoperative Record Main OR Preoperative Record Holding Area Document Type FTURO Summary Primary Physician: Antonio AMBRIZ MD Finalized Date/Time: 04/09/24 13:07:47 Pt. Name: TARAH BRISENO/Sex: 1950 Female Med Rec #: [id number] Physician: Antonio AMBRIZ MD Financial #: [id number] Pt. Type: O Room/Bed: / Admit/Disch: 04/09/24 [...] No Pain Comment: 0/10 Skin Integrity Intact, [place], Warm, & Dry Vitals - EU Blood Pressure 118/79 Pulse 63 bpm Respirations 16 br/min SPO2 97 % Additional Other (See Comment) Specimens Comment Urine specimen negative Specimens Collected RN Reviewed Yes Last Modified By: Georgina Palacios RN 04/09/24 13:07:42 Finalized By: Georgina Palacios RN Document Signatures Signed By: Georgina Palacios RN 04/09/24 13:07 Normal [facility] Operative Reporton Operative Report Operative Report Patient: TARAH BRISENO Age: 73 years Sex: Female : 1950 Associated Diagnoses: None Author: Antonio AMBRIZ MD Procedure Operative Information Details: Date/ Time: 04/09/2024 13:38:00. Pre-Op Dx: Mixed stress and urge urinary incontinence (QHC15-DD N39.46, Billing Diagnosis, Medical), Overactive bladder (UOC08-HS N32.81, Billing Diagnosis, Medical). Post-Op Dx: Same. [...] two months to check PVR> . Normal [facility] Comment on above: Result Comment: Elec tronically Signed By: Antonio AMBRIZ MD\.br\Date and Time Signed: 04/09/24 13:40 EDT Outpatient Surgery Discharge Instructionon 04-09-2024 Outpatient Surgery Discharge Instruction Outpatient Surgery Discharge Instruction [address] [address] Patient Discharge Instructions PERSON INFORMATION [...] With: Address: When: [address], [address], [facility] [address] [place] [id number] Business (1) Comments: Please make a follow [...] to serve you. [facility] Ambulatory Visit Summaryon 0 02-15-2024 Ambulatory [...] Follow-Up Appointments Tuesday 1:00 PM EDT Where: [facility] [address] [address]- You Need to Schedule the Following Appointments Follow Up with MADELIN CORDOBA, JEN Callahan When: Comments: Sched Botox Where: [address] [address]- Medications What How Much When Why Instructions [...] physically inactive. (more content not included)... Normal [facility] Urology Office/Clinic Noteon 02-15-2024 Urology Office/Clinic [...] Information Antonio AMBRIZ MD, URL [address] [place] [address]- Additional Instructions: Sched Botox Patient Education [...] with voice recognition artificial intelligence software, specifically Media Radar, Tutum and or Anatexis. Substitutions may have occurred due to the inherent limitations of voice recognition and artificial intelligence software. Problem List/Past Medical History Ongoing Asthma Asymptomatic microscopic hematuria Candidia (more content not included)... Normal [facility] Comment on above: Result Comment: Elec tronically Signed By: Antonio AMBRIZ MD\.br\Date and Time Signed: 02/15/24 13:31 EDT\.br\Electronically Co-Signed By: Donnell Paredes\.br\Date and Time Co-Signed: 02/15/24 13:27 EDT Physician Referralon 024 Physician Referral [id number] Normal [facility] Ambulatory Visit Summaryon 0 10-06-2023 Ambulatory [...] AM EDT With: Colby Escobar MD Where: [facility] [place] Invalid Interpretation Code [address], [address] [place] [address]- \.br\ Tuesday 1:00 PM EDT \.br\ With:\.br\ Where: [facility] ED Note-Physicianon 10-06-19 ED Note-Physician [id number] Normal [facility] Medicine Office/Clini c Noteon 10-06-2023 Family Medicine Office/Clinic Note HPI Staff Tarah is a 73 year old female presenting for Er follow up ER followup: Hospital: [facility] Visit date: 10/02/23 Symptoms the patient presented [...] pain, # 12 tab(s), Refills(s) 0, [facility]acy: [facility] [id number], 165, cm, 10/06/23 11:01:00 EDT, Height/Length Dosing, 106.8, kg, 10/06/23 11:01:00 EDT, Weight Dosing 2. BMI 39.0-39.9,adult (Z68.39: Body mass index [BMI] 39.0-39.9, adult) - BMI education given Ordered: tramadol, 50 mg = 1 tab(s), Oral, q4hr, PRN for pain, # 12 tab(s), Refills(s) 0, Pharmacy: [facility] [id number], 165, cm, 10/06/23 11:01:00 EDT, Height/Length Dosing, [...] pain, # 12 tab(s), Refills(s) 0, Pharmacy: [facility] [id number], 165, cm, 10/06/23 11:01:00 EDT, Height/Length Dosing, [...] pain, # 12 tab(s), Refills(s) 0, Pharmacy: [facility] [id number], 165, cm, 10/06/23 11:01:00 EDT, Height/Length Dosing, [...] 21 tab(s), Refills(s) 0, Pharmacy: [facility] [id number], 165, cm, 10/06/23 11:01:00 EDT, Height/Length Dosing, [...] Colonoscopy ( (more content not included)... Normal [facility] Comment on above: Result Comment: Elec [...] numbers. This can be done either in Fijian ([place] or metric measurements. Note that charts and online BMI calculators are available to help you find your BMI quickly and easily without having to do these calculations yourself. To calculate your BMI in [place]ijian ([place] measurements: 1. Measure your weight in [...] for Disease Control and Prevention: www.cdc.gov ? [place] [employer] Association: www.heart.org ? National Heart, Lung, and Blood [place]: www.nhlbi.nih.gov Summary ? Body mass index (BMI) is a number that is calculated from a person's weight and height. ? BMI may help estimate how much of a person's weight is composed of fat. BMI can help identify those who may be at higher risk for certain medical problems. ? BMI can be measured using Fijian measurements or metric measurements. ? BMI charts are used to identify whether you are underweight, normal weight, overweight, or obese. This information is not intended to replace advice given to you by your health care provider. Make sure you discuss any questions you have with your health care provider. Document Revised: 03/26/2020 Document Reviewed: 02/01/2020 [employer] Patient Education ? 2022 [employer]. [facility] [id number] Normal [facility] Ambulatory Visit Summaryon 0 07-27-2023 Ambulatory Visit Summary TARAH BRISENO :1950 Visit Date:07/27/2023 Ambulatory Visit Instructions Your Diagnosis Mixed incontinence Other urethral stricture, female Asymptomatic microscopic hematuria Tests Performed Urnls Dip Stick Auto w/o Microscopy POC 10390 Your Care Team Attending Physician - MADELIN [...] Antonio AMBRIZ MD Where: [facility] [id number] \.br\ You Need to Schedule the Following Appointments\. br\ Follow Up with Antonio AMBRIZ MD, URL When: \.br\ Where:\.br\ [address] [place] [address] 3\.br\ [place] [address]-\.br\ \.br\ Medications\.b r\ What How Much When [...] Urnls Dip Stick Auto w/o Microscopy POC 45720 (07/27/2023)\. br\ Bilirubin Urine Dipstick - Negative\.br\ Blood Urine Dipstick - Trace-intact\. br\ Glucose Urine Dipstick - Negative\.br\ Ketones Urine Dipstick - Negative\.br\ Leukocytes Urine Dipstick - Negative\.br\ Nitrite Urine Dipstick - Negative\.br\ Protein Urine Dipstick - Negative\.br\ Specific [place] Urine Dipstick - 1.020\.br\ Urine Appearance Urine [...] or controlled breathing exercises.\.br \ ? \.br\ [facility] Patient Educationon 07-27-19 Patient Education Urology [...] nerve stimulation). ? For women, using a faculty i on call medical assistant to prevent urine leaks. This is a [...] urine. ? (more content not included)... Normal [facility] Urology Office/Clinic Noteon 07-27-2023 Urology Office/Clinic [...] with voice recognition artificial intelligence software, specifically [employer], Tutum and or Anatexis. Substitutions may have occurred due to the [...] MD, URL [address] [address]- Additional Instructions: 6 months Patient Education Urinary [...] Cholecystectomy, Colon (more content not included)... Normal [facility] Comment on above: Result Comment: Elec tronically Signed By: Antonio AMBRIZ MD\.br\Date and Time Signed: 07/27/23 11:24 EST\.br\Electronically Co-Signed By: Aura Hernandez\.br\Date and Time Co-Signed: 07/27/23 11:20 EST CHEMISTRYOrdered By: SYSTEM SYSTEM on 05-10-2023 Cholesterol [Mass/Vol] 151 mg/dL Normal 120 - 200 mg/dL [facility] Remisol Cholesterol in HDL [Mass/Vol] 58 mg/dL [...] : DR RAUL LEWIS . Admission #: [id number] Family : Order #: [id number] CLICK HERE TO VIEW EXAM RADIOLOGY REPORT [...] cervical cancer at age 47. LOCATION: [facility] BREAST COMPOSITION: Scattered areas fibroglandular density. [...] MD on 05/12/2022 at 11:25 Normal [facility] CBC AUTO DIFFon 03-31-2022 BASO # 0.0 103/ul Normal 0.0-0.1 [facility] Comment on above: Performed By: #### C BC #### [facility] [address] [place] [address] Dr. Altaf Hogue Basophils/100 WBC (Bld) 0.4 % Normal 0.2-2.0 [facility] Comment on above: Performed By: #### C BC #### [facility] [address] [place] [address] Dr. Altaf Hogue EO # 0.3 103/ul Normal 0.0-0.7 [facility] Comment on above: Performed By: #### C BC #### [facility] [address] [place] [address] Dr. Altaf Hogue Eosinophils/100 WBC (Bld) 4.4 % Normal 0.9-7.0 [facility] Comment on above: Performed By: #### C BC #### [facility] [address] [place] [address] Dr. Altaf Hogue Erythrocyte distribution width (RBC) [Ratio] 13.5 % Normal 11.0-15.0 [facility] Comment on above: Performed By: #### C BC #### [facility] [address] [place] [address] Dr. Altaf Hogue Hematocrit (Bld) [Volume fraction] 44.4 % Normal 36.0-48.0 [facility] Comment on above: Performed By: #### C BC #### [facility] [address] [place] [address] Dr. Altaf Hogue Hemoglobin (Bld) [Mass/Vol] 14.3 g/dL Normal 12.0-16.0 [facility] Comment on above: Performed By: #### C BC #### [facility] [address] [place] [address] Dr. Altaf Hogue IG # 0.02 10e3/ul Normal 0.00-0.03 [facility] Comment on above: Performed By: #### C BC #### [facility] [address] [place] [address] Dr. Altaf Hogue IG % 0.3 % Normal 0.0-0.5 [facility] Comment on above: Performed By: #### C BC #### [facility] [address] [place] [address] Dr. Altaf Hogue LYMPH # 2.2 103/ul Normal 1.2-3.8 [facility] Comment on above: Performed By: #### C BC #### [facility] [address] [place] [address] Dr. Altaf Hogue Lymphocytes/100 WBC (Bld) 28.8 % Normal 20.5-60.0 [facility] Comment on above: Performed By: #### C BC #### [facility] [address] [place] [address] Dr. Altaf Hogue MANUAL DIFF REQ NO Normal [facility] Comment on above: Performed By: #### C BC #### [facility] [address] [place] [address] Dr. Altaf Hogue MCH (RBC) [Entitic mass] 29.0 pg Normal 26.7-34.0 [facility] Comment on above: Performed By: #### C BC #### [facility] [address] [place] [address] Dr. Altaf Hogue MCHC (RBC) [Mass/Vol] 32.2 g/dL Normal 29.9-35.2 [facility] Comment on above: Performed By: #### C BC #### [facility] [address] [place] [address] Dr. Altaf Hogue MCV (RBC) [Entitic vol] 90.1 fL Normal 81.0-99.0 [facility] Comment on above: Performed By: #### C BC #### [facility] [address] [place] [address] Dr. Altaf Hogue MONO # 0.6 103/ul Normal 0.3-0.8 [facility] Comment on above: Performed By: #### C BC #### [facility] [address] [place] [address] Dr. Altaf Hogue Monocytes/100 WBC (Bld) 8.5 % Normal 1.7-12.0 [facility] Comment on above: Performed By: #### C BC #### [facility] [address] [place] [address] Dr. Altaf Hogue NEUT # 4.3 103/ul Normal 1.4-6.5 [facility] Comment on above: Performed By: #### C BC #### [facility] [address] [place] [address] Dr. Altaf Hogue Neutrophils/100 WBC (Bld) 57.6 % Normal 43.0-75.0 [facility] Comment on above: Performed By: #### C BC #### [facility] [address] [place] [address] Dr. Altaf Hogue Platelet mean volume (Bld) [Entitic vol] 9.7 fL Normal 9.5-13.5 [facility] Comment on above: Performed By: #### C BC #### [facility] [address] [place] [address] Dr. Altaf Hogue PLT 286 103/ul Normal 150-450 [facility] Comment on above: Performed By: #### C BC #### [facility] [address] [place] [address] Dr. Altaf Hogue RBC 4.93 106/ul Normal 4.20-5.40 [facility] Comment on above: Performed By: #### C BC #### [facility] [address] [place] [address] Dr. Altaf Hogue WBC 7.5 103/ul Normal 4.0-11.0 [facility] Comment on above: Performed By: #### C BC #### [facility] [address] [place] [address] Dr. Altaf Hogue FREE T3on 03-31-2022 FREE T3 2.39 pg/mlL Normal 2.18-3.98 [facility] Comment on above: Performed By: #### T SH, FT3, LIPID, CMP #### [facility] [address] [place] [address] Dr. Altaf Hogue FREE T4on 03-31-2022 Free T4 [Mass/Vol] 1.04 ng/dL Normal 0.76-1.46 [facility] Comment on above: Performed By: #### F T4 #### [facility] [address] [address] [address] Altaf Hogue LIPID PROFILEon 03-31-2022 CHOL-HDL RATIO NORM SEE BELOW Normal [facility] Comment on above: Result Comment: 3.3 - 4.4 LOW RISK 4.4 - 7.1 AVERAGE RISK 7.1 - 11.0 MODERATE RISK >11.0 HIGH RISK Performed By: #### T SH, FT3, LIPID, CMP #### [facility] [address] [place] [address] [address] Altaf Hogue Cholesterol [Mass/Vol] 142 mg/dL Normal <=200 [facility] Comment on above: Performed By: #### T SH, FT3, LIPID, CMP #### [facility] [address] [place] [address] [address] Altaf Hogue Cholesterol in HDL [Mass/Vol] 59 mg/dL Normal 40-60 [facility] Comment on above: Performed By: #### T SH, FT3, LIPID, CMP #### [facility] [address] [place] [address] Dr. Altaf Hogue Cholesterol in LDL [Mass/Vol] 64.2 mg/dL Normal [facility] Comment on above: Performed By: #### T SH, FT3, LIPID, CMP #### [facility] [address] [place] [address] [address] Altaf Hogue Cholesterol.total/ Cholesterol in HDL [Mass ratio] 2.4 {ratio} Normal [facility] Comment on above: Performed By: #### T SH, FT3, LIPID, CMP #### [facility] [address] [place] [address] Dr. Altaf Hogue HDL NORMAL > or = 60 mg/dl - LO W CARDIOVASCULAR RISK <40 mg/dl - HIGH CARDIOVASCULAR RISK Normal [facility] Comment on above: Performed By: #### T SH, FT3, LIPID, CMP #### [facility] [address] [place] [address] Dr. Altaf Hogue LDL CALC NORMAL SEE BELOW Normal [facility] Comment on above: Result Comment: <100 mg/dl OPTIMAL 100 - 129 mg/dl NEAR OR ABOVE OPTIMAL 130 - 159 mg/dl BORDERLINE HIGH 160 - 189 mg/dl HIGH >190 mg/dl VERY HIGH Performed By: #### T SH, FT3, LIPID, CMP #### [facility] [address] [place] [address] [address] Altaf Hogue Triglyceride [Mass/Vol] 94 mg/dL Normal <=150 [facility] Comment on above: Performed By: #### T SH, FT3, LIPID, CMP #### [facility] [address] [place] [address] [address] Altaf Hogue VLDL CALC 18.8 mg/dL Normal [facility] Comment on above: Performed By: #### T SH, FT3, LIPID, CMP #### [facility] [address] [place] [address] [address] Altaf Hogue PROF 14(COMP METB)on 022 Albumin [Mass/Vol] 3.3 g/dL Critically low 3.4-5.0 [facility] Comment on above: Performed By: #### T SH, FT3, LIPID, CMP #### [facility] [address] [place] [address] [address] Altaf Hogue Albumin/Globulin [Mass ratio] 0.9 {ratio} Normal [facility] Comment on above: Performed By: #### T SH, FT3, LIPID, CMP #### [facility] [address] [place] [address] [address] Altaf Hogue ALP [Catalytic activity/Vol] 104 U/L Normal 46-116 [facility] Comment on above: Performed By: #### T SH, FT3, LIPID, CMP #### [facility] [address] [place] [address] [address] Altaf Hogue ALT [Catalytic activity/Vol] 24 U/L Normal 14-59 [facility] Comment on above: Performed By: #### T SH, FT3, LIPID, CMP #### [facility] [address] [place] [address] [address] Altaf Hogue Anion gap [Moles/Vol] 11.2 mmol/L Normal [facility] Comment on above: Performed By: #### T SH, FT3, LIPID, CMP #### [facility] [address] [place] [address] [address] Altaf Hogue AST [Catalytic activity/Vol] 18 U/L Normal 15-37 [facility] Comment on above: Performed By: #### T SH, FT3, LIPID, CMP #### [facility] [address] [place] [address] Dr. Altaf Hogue Bilirubin [Mass/Vol] 0.4 mg/dL Normal 0.2-1.0 [facility] Comment on above: Performed By: #### T SH, FT3, LIPID, CMP #### [facility] [address] [place] [address] Dr. Altaf Hogue Calcium [Mass/Vol] 8.9 mg/dL Normal 8.5-10.1 [facility] Comment on above: Performed By: #### T SH, FT3, LIPID, CMP #### [facility] [address] [place] [address] Dr. Altaf Hogue Chloride [Moles/Vol] 107 mmol/L Normal 98-107 [facility] Comment on above: Performed By: #### T SH, FT3, LIPID, CMP #### [facility] [address] [place] [address] Dr. Altaf Hogue CO2 [Moles/Vol] 26.2 mmol/L Normal 21.0-32.0 [facility] Comment on above: Performed By: #### T SH, FT3, LIPID, CMP #### [facility] [address] [place] [address] Dr. Altaf Hogue Creatinine [Mass/Vol] 0.85 mg/dL Normal 0.55-1.02 [facility] Comment on above: Performed By: #### T SH, FT3, LIPID, CMP #### [facility] [address] [place] [address] Dr. Altaf Hogue EGFR-AF UKRAINIAN >60 Normal >=60 [facility] Comment on above: Performed By: #### T SH, FT3, LIPID, CMP #### [facility] [address] [place] [address] [address] Altaf Hogue EGFR-NON AF UKRAINIAN >60 Normal >=60 [facility] Comment on above: Performed By: #### T SH, FT3, LIPID, CMP #### [facility] [address] [place] [address] [address] Altaf Hogue Globulin (S) [Mass/Vol] 3.8 g/dL Normal [facility] Comment on above: Performed By: #### T SH, FT3, LIPID, CMP #### [facility] [address] [place] [address] [address] Altaf Hogue Glucose [Mass/Vol] 88 mg/dL Normal 74-106 [facility] Comment on above: Performed By: #### T SH, FT3, LIPID, CMP #### [facility] [address] [place] [address] [address] Altaf Hogue Potassium [Moles/Vol] 4.4 mmol/L Normal 3.5-5.1 [facility] Comment on above: Performed By: #### T SH, FT3, LIPID, CMP #### [facility] [address] [place] [address] Dr. Altaf Hogue Protein [Mass/Vol] 7.1 g/dL Normal 6.4-8.2 [facility] Comment on above: Performed By: #### T SH, FT3, LIPID, CMP #### [facility] [address] [place] [address] Dr. Altaf Hogue Sodium [Moles/Vol] 140 mmol/L Normal 136-145 [facility] Comment on above: Performed By: #### T SH, FT3, LIPID, CMP #### [facility] [address] [place] [address] [address] Altaf Hogue Urea nitrogen [Mass/Vol] 15.0 mg/dL Normal 7.0-18.0 [facility] Comment on above: Performed By: #### T SH, FT3, LIPID, CMP #### [facility] [address] [place] [address] Dr. Altaf Hogue Urea nitrogen/Creatinin e [Mass ratio] 17.6 mg/mg Normal [facility] Comment on above: Performed By: #### T SH, FT3, LIPID, CMP #### [facility] [address] [place], [place] [address] Dr. Altaf Hogue TSHon 03-31-2022 TSH 1.010 uIU/mL Normal 0.358-3.740 [facility] Comment on above: Performed By: #### T SH, FT3, LIPID, CMP #### [facility] [address] [place], [place] [address] ABD/PELVIS WO CONon [...] by: DANIELLE YAP Date: 2021-06-25 13:32 Normal [facility] Vital Signs Date Time Vital Sign Value Performing Clinician Jasmin link 01-28-2025 11:09-0400 Diastolic blood pressure 75 mm[Hg] Jacqueline Hernandez LEATHER COVERER Work Phone: [facility] 01-28-2025 11:09-0400 Heart rate 61 /min Jacqueline Hernandez LEATHER COVERER Work Phone: [facility] 01-28-2025 11:09-0400 Systolic blood pressure 118 mm[Hg] Jacqueline Hernandez LEATHER COVERER Work Phone: [facility] 01-16-2025 11:05-0400 Body height 163.83 cm Jacqueline Hernandez APRN Work Phone: [facility] 01-16-2025 11:05-0400 Body mass index (BMI) [Ratio] 39.4 kg/m2 Jacqueline Hernandez LEATHER COVERER Work Phone: [facility] 01-16-2025 11:05-0400 Body temperature 98 [degF] Jacqueline Hernandez LEATHER COVERER Work Phone: [facility] 01-16-2025 11:05-0400 Body weight 105.68 kg Jacqueline Hernandez LEATHER COVERER Work Phone: [facility] 01-16-2025 11:05-0400 Diastolic blood pressure 76 mm[Hg] Jacqueline Hernandez APRN Work Phone: [facility] 01-16-2025 11:05-0400 Heart rate 80 /min Jacqueline Henrandez APRN Work Phone: [facility] 01-16-2025 11:05-0400 SaO2% (BldA) [Mass fraction] 97 % Jacqueline Hernandez LEATHER COVERER Work Phone: [facility] 01-16-2025 11:05-0400 Systolic blood pressure 134 mm[Hg] Jacqueline Hernandez APRN Work Phone: [facility] 01-10-2025 14:00-0400 Diastolic blood pressure 66 mm[Hg] Vicky Downing MD Work Phone: [facility] 01-10-2025 14:00-0400 Heart rate 53 /min Vicky Downing MD Work Phone: [facility] 01-10-2025 14:00-0400 Respiratory rate 18 /min Vicky Downing MD Work Phone: [facility] 01-10-2025 14:00-0400 SaO2% (BldA) [Mass fraction] 98 % Vicky Downing MD Work Phone: [facility] 01-10-2025 14:00-0400 Systolic blood pressure 150 mm[Hg] Vicky Downing MD Work Phone: [facility] 01-10-2025 12:10-0400 Body height 162.6 cm Vicky Downing MD Work Phone: [facility] 01-10-2025 12:10-0400 Body mass index (BMI) [Ratio] 39.48 kg/m2 Vicky Downing MD Work Phone: [facility] 01-10-2025 12:10-0400 Body temperature 97.3 [degF] Vicky Downing MD Work Phone: [facility] 01-10-2025 12:10-0400 Body weight 104.33 kg Vicky Downing MD Work Phone: [facility] 10-18-2024 10:47-0400 Body height 163.83 cm Jacqueline Hernandez APRN Work Phone: [facility] 10-18-2024 10:47-0400 Body mass index (BMI) [Ratio] 38.5 kg/m2 Jacqueline Hernandez APRN Work Phone: [facility] 10-18-2024 10:47-0400 Body weight 103.5 kg Jacqueline Hernandez APRN Work Phone: [facility] 10-18-2024 10:47-0400 Diastolic blood pressure 70 mm[Hg] Jacqueline Gonzalesdo LEATHER COVERER Work Phone: [facility] 10-18-2024 10:47-0400 Systolic blood pressure 125 mm[Hg] Jacqueline Gonzaleschantalvickijose LEATHER COVERER Work Phone: [facility] 10-03-2024 12:10-0400 Diastolic blood pressure 65 mm[Hg] Jacqueline Mary LEATHER COVERER Work Phone: [facility] 10-03-2024 12:10-0400 Heart rate 53 /min Jacqueline Mary LEATHER COVERER Work Phone: [facility] 10-03-2024 12:10-0400 Respiratory rate 16 /min Jacqueline Gonzalesdo LEATHER COVERER Work Phone: [facility] 10-03-2024 12:10-0400 SaO2% (BldA) [Mass fraction] 96 % Jacqueline Gonzalesdo LEATHER COVERER Work Phone: [facility] 10-03-2024 12:10-0400 Systolic blood pressure 122 mm[Hg] Jacqueline Gonzalesdo LEATHER COVERER Work Phone: [facility] 10-03-2024 10:49-0400 Body height 163.83 cm Jacqueline Gonzalesdo LEATHER COVERER Work Phone: [facility] 10-03-2024 10:49-0400 Body weight 104.32 kg Jacqueline Christiejose LEATHER COVERER Work Phone: [facility] 09-06-2024 10:39-0500 Body height 165.1 cm [facility] 09-06-2024 10:39-0500 Body mass index (BMI) [Ratio] 39.4 kg/m2 [facility] 09-06-2024 10:39-0500 Body weight 107.6 kg [facility] 08-07-2024 11:35-0500 Body height 165.1 cm [facility] 08-07-2024 11:35-0500 Body mass index (BMI) [Ratio] 39.3 kg/m2 [facility] 08-07-2024 11:35-0500 Body temperature 98.1 [degF] [facility] 08-07-2024 11:35-0500 Body weight 107.16 kg [facility] 08-07-2024 11:35-0500 Diastolic blood pressure 72 mm[Hg] [facility] 08-07-2024 11:35-0500 Heart rate 76 /min [facility] 08-07-2024 11:35-0500 SaO2% (BldA) [Mass fraction] 98 % [facility] 08-07-2024 11:35-0500 Systolic blood pressure 126 mm[Hg] [facility] 06-12-2024 15:08-0500 Body height 165.1 cm [facility] 06-12-2024 15:08-0500 Body mass index (BMI) [Ratio] 39.8 kg/m2 [facility] 06-12-2024 15:08-0500 Body temperature 97.3 [degF] [facility] 06-12-2024 15:08-0500 Body weight 108.52 kg [facility] 06-12-2024 15:08-0500 Diastolic blood pressure 84 mm[Hg] [facility] 06-12-2024 15:08-0500 Heart rate 67 /min [facility] 06-12-2024 15:08-0500 SaO2% (BldA) [Mass fraction] 97 % [facility] 06-12-2024 15:08-0500 Systolic blood pressure 132 mm[Hg] [facility] 06-12-2024 10:58-0500 Blood Pressure Location JACQUELINE HUFF [facility] 06-12-2024 10:58-0500 Diastolic blood pressure 86 mm[Hg] JACQUELINE HUFF [facility] 06-12-2024 10:58-0500 Heart rate 78 /min JACQUELINE HUFF [facility] 06-12-2024 10:58-0500 Systolic blood pressure 132 mm[Hg] JACQUELINE HUFF [facility] 02-17-2024 11:32-0400 Diastolic blood pressure 68 mm[Hg] [facility] 02-17-2024 11:32-0400 Systolic blood pressure 116 mm[Hg] [facility] 02-17-2024 11:26-0400 Body height 165.1 cm [facility] 02-17-2024 11:26-0400 Body mass index (BMI) [Ratio] 39.1 kg/m2 [facility] 02-17-2024 11:26-0400 Body weight 106.59 kg [facility] 02-17-2024 11:26-0400 Heart rate 72 /min [facility] 01-10-2024 14:04-0400 Body height 165.1 cm [facility] 01-10-2024 14:04-0400 Body mass index (BMI) [Ratio] 39.4 kg/m2 [facility] 01-10-2024 14:04-0400 Body weight 107.5 kg [facility] 01-10-2024 14:04-0400 Diastolic blood pressure 78 mm[Hg] [facility] 01-10-2024 14:04-0400 Heart rate 72 /min [facility] 01-10-2024 14:04-0400 SaO2% (BldA) [Mass fraction] 98 % [facility] 01-10-2024 14:04-0400 Systolic blood pressure 118 mm[Hg] [facility] 07-27-2023 10:34-0500 Blood Pressure Location Antonio AMBRIZ [facility] 07-27-2023 10:34-0500 Diastolic blood pressure 67 mm[Hg] Antonio AMBRIZ [facility] 07-27-2023 10:34-0500 Heart rate 62 /min Antonio AMBRIZ [facility] 07-27-2023 10:34-0500 Respiratory rate 16 /min Antonio AMBRIZ [facility] 07-27-2023 10:34-0500 Systolic blood pressure 106 mm[Hg] Antonio AMBRIZ [facility] 08-10-2022 12:37-0500 Blood Pressure Location Oh RICE [facility] 08-10-2022 12:37-0500 Diastolic blood pressure 85 mm[Hg] Oh RICE [facility] 08-10-2022 12:37-0500 Heart rate 84 /min Oh RICE [facility] 08-10-2022 12:37-0500 Respiratory rate 16 /min Oh RICE [facility] 08-10-2022 12:37-0500 Systolic blood pressure 128 mm[Hg] Oh RICE [facility] 05-12-2022 13:16-0400 Blood Pressure Location Leonid MARSHALLL [facility] [place] 05-12-2022 13:16-0400 Diastolic blood pressure 82 mm[Hg] Leonid MARSHALLL [facility] [place] 05-12-2022 13:16-0400 Heart rate 80 /min Leonid MARSHALLL [facility] [place] 05-12-2022 13:16-0400 Respiratory rate 16 /min Leonid MARSHALLJoe [facility] [place] 05-12-2022 13:16-0400 Systolic blood pressure 122 mm[Hg] Leonid MARSHALLL [facility] [place] 01-19-2022 09:43-0400 Blood Pressure Location Vida Desouza Jr. [facility] 01-19-2022 09:43-0400 Diastolic blood pressure 85 mm[Hg] Vida Desouza Jr. [facility] 01-19-2022 09:43-0400 Heart rate 82 /min Vida Desouza Jr. [facility] 01-19-2022 09:43-0400 Systolic blood pressure 134 mm[Hg] Vida Desouza Jr. [facility] 11-12-2021 11:37-0400 Blood Pressure Location Vida Desouza Jr. [facility] 11-12-2021 11:37-0400 Diastolic blood pressure 81 mm[Hg] Vida Desouza Jr. [facility] 11-12-2021 11:37-0400 Heart rate 78 /min Vida Desouza Jr. [facility] 11-12-2021 11:37-0400 Respiratory rate 16 /min Vida Desouza Jr. [facility] 11-12-2021 11:37-0400 Systolic blood pressure 132 mm[Hg] Vida Deo Fermin [facility] Encounters Encounter Date Encounter Type Care Provider Facility Start: 02-11-2025 End: 02-11-2025 Bamboo flowsheet Yancy Carr PA Work Phone: [facility] Start: 02-11-2025 End: 02-11-2025 Bamboo flowsheet [facility] Start: 02-11-2025 End: 02-11-2025 ambulatory YANCY CARR Not Available Start: 02-11-2025 End: 02-11-2025 Office outpatient visit 15 minutes Yancy GUNTER Work Phone: [facility] Comment on above: Melanocytic nevus of trunk (Primary Dx); Seborrheic keratosis; Inflamed seborrheic keratosis Start: 01-28-2025 End: 01-28-2025 ambulatory Jacqueline Hernandez APRN Work Phone: [facility] Work Phone: Start: 01-28-2025 End: 01-28-2025 Patient encounter procedure [place] APRN -[facility] Work Phone: Start: 01-17-2025 End: 01-17-2025 Follow-up encounter Jaclyn Stewart APRN.[employer]ENT [employer] Work Phone: Gastroenterology Comment on above: Results Start: 01-16-2025 End: 01-16-2025 ambulatory Jacqueline Hernandez APRN Work Phone: [facility] Work Phone: Start: 01-16-2025 End: 01-16-2025 Patient encounter procedure Jacqueline Hernandez APRN [employer]ENT [employer] -[facility] Work Phone: Start: 01-10-2025 ambulatory RAUL LEWIS Facil ity:[facility] Start: 01-10-2025 End: 01-10-2025 Subsequent hospital visit by physician Vicky Downing MD Work Phone: Gastroenterology Comment on above: Eosinophilic esophag itis [K20.0] Start: 01-03-2025 End: 01-03-2025 ambulatory Awa Lemon RNaquatics manager Start: 12-06-2024 End: 12-06-2024 ambulatory SAMUEL SHORE Not Available Start: 10-18-2024 End: 10-18-2024 Bamboo flowsheet Fatuma A Felter LEATHER COVERER-SUPERINTENDENT [employer] Work Phone: [facility] Start: 10-18-2024 End: 10-18-2024 Bamboo flowsheet Fatuma A Felter LEATHER COVERER-SUPERINTENDENT [employer] Work Phone: [facility] Start: 10-18-2024 End: 10-18-2024 ambulatory FATUMA A FELTER Not Available Start: 10-18-2024 End: 10-18-2024 Patient encounter procedure Fatuma A Felter LEATHER COVERER-[employer]PER[employer]ENDENT [employer] Work Phone: [facility] Comment on above: Inflamed seborrheic keratosis Start: 10-18-2024 End: 10-18-2024 ambulatory Jacqueline Hernandez APRN Work Phone: [facility] Work Phone: Start: 10-18-2024 End: 10-18-2024 Patient encounter procedure Jacqueline Hernandez LEATHER COVERER Work Phone: [facility] Work Phone: Start: 10-16-2024 End: 10-16-2024 ambulatory RAUL LEWIS Facility:[facility] Start: 10-16-2024 End: 10-16-2024 Patient encounter procedure Jaclyn Stewart LEATHER COVERER.[employer] Work Phone: Gastroenterology Comment on above: Eosinophilic esophag itis (Primary Dx); Esophageal lesion Start: 10-15-2024 End: 10-16-2024 Chart abstracting Blanca Desouza RNaquatics manager Start: 10-03-2024 Non-patient / Non-visit Jacqueline Hernandez APRN Work Phone: [facility] Phys[facility] Work Phone: Start: 10-03-2024 End: 10-03-2024 Admission to same day surgery center Jacqueline Hernandez LEATHER COVERER Work Phone: [facility] Work Phone: Start: 10-03-2024 End: 10-03-2024 ambulatory Jacqueline Hernandez LEATHER COVERER Work Phone: [facility] Work Phone: Start: 09-12-2024 End: 09-12-2024 Bamboo flowsheet Fatuma A Felter LEATHER COVERER-SUPERINTENDENT [employer]ORAGE Work Phone: [facility] Start: 09-12-2024 End: 09-12-2024 Bamboo flowsheet Fatuma A Felter LEATHER COVERER-SUPERINTENDENT [employer] Work Phone: [facility] Start: 09-12-2024 End: 09-12-2024 ambulatory FATUMA A FELTER Not Available Start: 09-12-2024 End: 09-12-2024 Patient encounter procedure Fatuma A Felter LEATHER COVERER-SUPERINTENDENT [employer] Work Phone: [facility] Comment on above: Inflamed seborrheic keratosis Start: 09-06-2024 End: 09-06-2024 ambulatory [facility] Work Phone: Start: 09-06-2024 End: 09-06-2024 Patient encounter procedure [facility] Work Phone: Start: 2024 End: 2024 Bamboo flowsheet Fatuma A Felter LEATHER COVERER-SUPERINTENDENT [employer]AGE Work Phone: [facility] Start: 2024 End: 2024 Bamboo flowsheet Fatuma Cartagena Felter LEATHER COVERER-SUPERINTENDENT [employer] STORAGE Work Phone: [facility] Start: 2024 End: 2024 Patient encounter procedure Fatuma Cartagena Felter LEATHER COVERER-SUPERINTENDENT [employer] STORAGE Work Phone: [facility] Comment on above: Inflamed seborrheic keratosis Start: 2024 End: 2024 ambulatory FATUMA A FELTER Not Available Start: 08-07-2024 End: 08-07-2024 ambulatory [facility] Work Phone: Start: 08-07-2024 End: 08-07-2024 Patient encounter procedure [facility] Work Phone: Start: 06-12-2024 End: 06-12-2024 Patient encounter procedure [facility] Work Phone: Start: 06-12-2024 End: 06-12-2024 ambulatory JACQUELINE HUFF Facility:[facility] Start: 06-12-2024 End: 06-12-2024 Patient encounter procedure JACQUELINE HUFF [facility] Start: 04-09-2024 End: 04-09-2024 ambulatory Antonio AMBRIZ Facility:[facility] Start: 04-09-2024 End: 04-09-2024 Patient encounter procedure Antonio AMBRIZ [facility] Start: 04-02-2024 End: 04-02-2024 ambulatory Antonio AMBRIZ Facility:[facility] Start: 04-02-2024 End: 04-02-2024 Patient encounter procedure Antonio AMBRIZ [facility] Start: 03-26-2024 ambulatory Colby Escobar Facility :[facility] Start: 02-17-2024 End: 02-17-2024 ambulatory [facility] Work Phone: Start: 02-17-2024 End: 02-17-2024 Patient encounter procedure [facility] Work Phone: Start: 02-15-2024 End: 02-15-2024 ambulatory Antonio AMBRIZ Facility:[facility] Start: 02-15-2024 End: 02-15-2024 Patient encounter procedure Antonio AMBRIZ [facility] Start: 01-10-2024 End: 01-10-2024 ambulatory [facility] Work Phone: Start: 01-10-2024 End: 01-10-2024 Patient encounter procedure [facility] Work Phone: Start: 12-08-2023 End: 12-08-2023 ambulatory Colby Escobar Facility:[facility] Start: 10-06-2023 End: 10-06-2023 ambulatory Colby Escobar Facility:[facility] Start: 07-27-2023 End: 07-27-2023 ambulatory Antonio AMBRIZ Facility:[facility] Start: 07-27-2023 End: 07-27-2023 Patient encounter procedure Antonio AMBRIZ [facility] Start: 05-10-2023 End: 05-10-2023 Lab Drop off Colby Escobar [facility] Start: 01-11-2023 End: 01-11-2023 Patient encounter procedure Oh GOSS [facility] Start: 01-05-2023 End: 01-05-2023 Patient encounter procedure Oh GOSS [facility] Start: 12-31-2022 End: 12-31-2022 Lab Drop off Oh GOSS [facility] Start: 08-10-2022 End: 08-10-2022 Patient encounter procedure Oh GOSS [facility] Start: 05-12-2022 End: 05-12-2022 Patient encounter procedure Leonid GERBER [facility] Start: 05-12-2022 End: 05-13-[address] RAUL LEWIS Facility:[facility] Start: 03-31-2022 End: 04-01-[address] RAUL LEWIS Facility:[facility] Start: 02-09-2022 End: 03-19-2022 Pre-admission assessment Vida Desouza Jr. [facility] Start: 01-20-2022 End: 02-05-2022 Pre-admission assessment Vida Desouza Jr. [facility] Start: 01-19-2022 End: 01-19-2022 Patient encounter procedure Vida Desouza Jr. [facility] Start: 11-12-2021 End: 11-12-2021 Patient encounter procedure Vida Desouza Jr. [facility] Start: 06-25-2021 End: 06-26-[address] RAUL LEWIS Facility:[facility] Procedures Date Procedure Procedure Detail Performing Clinician Start: 02-11-2025 CRYOTHERAPY SKIN LESION Yancy GUNTER Work Phone: Start: 01-10-2025 Esophagoscp rig transoral hypopharynx crv hebert Stewart LEATHER COVERER.SUPERINTENDENT [employer]ORAGE Work Phone: Start: 10-18-2024 CRYOTHERAPY SKIN LESION Fatuma Phipps LEATHER COVERER-SUPERINTENDENT [employer] STORAGE Work Phone: Start: 10-03-2024 Esophagogastroduodenoscopy Jacqueline Gonzaleschantalbenjamin LEATHER COVERER Work Phone: Start: 09-12-2024 CRYOTHERAPY SKIN LESION Fatuma Cartagena Feltnicki LEATHER COVERER-SUPERINTENDENT [employer] STORAGE Work Phone: Start: 2024 CRYOTHERAPY SKIN LESION Fatuma Phipps LEATHER COVERER-SUPERINTENDENT [employer]ORAGE Work Phone: Start: 10-23-2020 Injection of therapeutic [...] RSV Vaccine (1 - 1-dose 75+ series) [facility] Start: 06-26-2027 Screening for malignant neoplasm of colon [facility] Start: 02-10-2026 End: 02-10-2026 Patient encounter procedure 02/10/2026 10:00 AM EDT Office Visit [facility] [address] [place] [phone] Yancy Carr PA [address] [place] [address] [facility] Start: 04-19-2025 End: 01-17-2026 EGD - THERAPEUTIC, EUS, OR TUBE INTERVENTIONS EGD - THERAPEUTIC, EUS, OR TUBE INTERVENTIONS Endoscopy Routine Eosinophilic esophagitis Expected: 04/19/2025, Expires: 01/17/2026 [facility] Work Phone: Comment on above: Expected: 04/19/2025, Expires: Start: 03-18-2025 Influenza vaccination [facility] Start: 02-11-2025 End: 02-11-2025 Patient encounter procedure 02/11/2025 10:00 AM EDT Office Visit [facility] [address] [place] [phone] Yancy Carr PA [address] [place] [address] [facility] Start: 01-10-2025 End: 01-10-2025 Patient encounter procedure 01/10/2025 1:00 PM EDT Appointment Gastroenterology [address] [place] [address] Vicky Downing MD [address] [place] [address] Eosinophilic esophagitis [K20.0] Gastroenterology Comment on above: Eosinophilic esophagitis [K20.0] Start: 12-11-2024 End: 10-16-2025 EGD - THERAPEUTIC, EUS, OR TUBE INTERVENTIONS EGD - THERAPEUTIC, EUS, OR TUBE INTERVENTIONS Endoscopy Routine Eosinophilic esophagitis Esophageal lesion Expected: 12/11/2024 (Approximate), Expires: 10/16/2025 [facility] Work Phone: Comment on above: Expected: 12/11/2024 (Approximate), Expi res: 10/16/2025 Start: 11-19-2024 End: 11-19-2024 Patient encounter procedure 11/19/2024 1:55 PM EDT Office Visit [facility] [address] [place] [phone] Fatuma Phipps, LEATHER COVERER-SUPERINTENDENT [employer]MUNITION STORAGE [address] [place] [address] [facility] Start: 10-18-2024 End: 10-18-2024 Patient encounter procedure 10/18/2024 10:25 AM EDT Office Visit [facility] [address] [place] [phone] Fatuma Phipps, LEATHER COVERER-SUPERINTENDENT [employer] STORAGE [address] [place] [address] [facility] Start: 10-03-2024 [facility] Start: 09-12-2024 End: 09-12-2024 Patient encounter procedure 09/12/2024 1:10 PM EST Office Visit [facility] [address] [place] [address] Fatuma Phipps, LEATHER COVERER-SUPERINTENDENT [employer] STORAGE [address] [place] [address] [facility] Start: 2024 End: 2024 Patient encounter procedure 2024 9:40 AM EST Office Visit [facility] [address] [place] [phone] Fatuma Phipps, LEATHER COVERER-SUPERINTENDENT [employer] STORAGE [address] [place] [address] Arrived [facility] Comment on above: Arrived Start: 08-07-2024 Patient referral [facility] Work Phone: Start: 07-18-2024 Advance Directive Discussion Advance Directive Discussion [facility] Start: 07-18-2024 Medicare Advantage Annual Wellness Visit Medicare Advantage Annual Wellness Visit [facility] Start: 03-18-2024 Covid-19 Vaccine ( season) Covid-19 Vaccine ( season) [facility] Start: 03-18-2024 Influenza vaccination Influenza Vaccine (#1) [facility] Start: 2017 Pneumococcal Vaccine: 65+ Years (2 of 2 - PCV) Pneumococcal Vaccine: 65+ Years (2 of 2 - PCV) [facility] Start: 2017 Screening for osteoporosis Bone Density Screening [facility] Start: 04-28-2015 Pneumococcal Vaccine: 50+ (2 of 2 - PCV) Pneumococcal Vaccine: 50+ (2 of 2 - PCV) [facility] Start: 04-28-2015 Pneumococcal Vaccine: 65+ Years (2 of 2 - PCV) Pneumococcal Vaccine: 65+ Years (2 of 2 - PCV) [facility] Start: 04-06-2007 Diabetes Screening Diabetes Screening [facility] Start: 2002 Shingrix Vaccine (1 of 2) Shingrix Vaccine (1 of 2) [facility] Start: 1997 Lipid panel Lipid Screening [facility] Start: 1997 Screening for malignant neoplasm of colon [facility] Start: 1992 Screening for malignant neoplasm of breast [facility] Start: 1971 Urine microalbumin profile DTaP,Tdap,Td Vaccine (1 - Tdap) [facility] Start: 1970 Anxiety Screening Anxiety Screening [facility] Start: 1970 Depression Screening Depression Screening [facility] Start: 1970 Hepatitis C screening Hepatitis C Screening [facility] Start: 1952 Screening for malignant neoplasm of colon [facility] Comprehensive metabolic 2000 panel - Serum or Plasma [facility] DXA Skeletal system.axial Views for bone density [facility] MG Breast - bilatera l Screening [facility] Patient Education Hiatal hernia Esophageal stricture Know your Meds [facility] Work Phone: Patient referral [facility] Work Phone: Tissue Pathology biopsy report [facility] Work Phone: Comment on above: Release Upon Ordering for 1 Occurrences starting 01/10/2025, 1 completed [facility] Immunizations Immunization Date Immunization Notes Care Provider Fa cility 03-24-2023 influenza virus vacc ine, unspecified formulation Colby Escobar [facility] 03-24-2023 SARS-CoV-2 (COVID-19 ) [id number] Colby Escobar [facility] 07-19-2022 SARS-CoV-2 (COVID-19 ) [id number] Oh GOSS [facility] 03-30-2022 influenza virus vacc ine, unspecified formulation Oh GOSS [facility] 05-19-2021 SARS-CoV-2 (COVID-19 ) mRNA-1273 vaccine Oh GOSS [facility] 04-24-2021 influenza virus vacc ine, unspecified formulation Oh GOSS [facility] Comment on above: Result Comment: 2022: 67 10-04-2020 SARS-CoV-2 (COVID-19 ) mRNA-1273 vaccine Vida Desouza Jr. [facility] 09-06-2020 SARS-CoV-2 (COVID-19 ) mRNA-1273 vaccine Vida Desouza Jr. [facility] 04-17-2020 influenza virus vacc ine, unspecified formulation Vida Deo Fermin [facility] 06-13-2019 influenza virus vacc ine, unspecified formulation Oh GOSS [facility] 05-18-2018 influenza virus vacc ine, unspecified formulation Oh RICE [facility] 06-08-2015 influenza virus vacc ine, unspecified formulation Oh GOSS [facility] 04-28-2014 influenza virus vacc ine, unspecified formulation Oh GOSS [facility] 04-28-2014 pneumococcal polysaccharide vaccine, 23 valent [facility] 05-13-2013 influenza virus vacc ine, unspecified formulation Oh GOSS [facility] Payers Date Payer Category Payer Self-pay 2024 Medicare (Managed Care) [id number]. [id number] 2023 Private Health Insurance [id number] 1957 Medicare [id number] 1950 Unknown [id number] 2.16.84 [id number] 1952 Unknown [id number] 2.16.84 [id number] 1952 Unknown [id number] 2.16.84 [id number] 1952 Unknown [id number] 2.16.840.1.602974.3.579.2.727 1952 Unknown [id number] 2.16.840.1.557970.3.579.2.727 1952 Unknown [id number] 2.16.840.1.553388.3.579.2.727 1952 Unknown [id number] 2.16.840.1.715842.3.579.2.727 1952 Unknown [id number] 2.16.840.1.314472.3.579.2.727 1952 Unknown [id number] 2.16.840.1.505104.3.579.2.727 1952 Unknown [id number] 2.16.840.1.796632.3.579.2.727 1952 Unknown [id number] 2.16.840.1.260203.3.579.2.727 1952 Unknown [id number] 2.16.840.1.294368.3.579.2.1259 1952 Unknown [id number] 2.16.840.1.720589.3.579.2.1259 1952 Unknown [id number] 2.16.840.1.465939.3.579.2.1259 1952 Unknown [id number] 2.16.840.1.786487.3.579.2.1259 1952 Unknown [id number] 2.16.840.1.443394.3.579.2.1259 Medicare Medicare [id number] Unknown [facility] [id number] Unknown [id number] Social History Date Type Detail Facility Start: 11-12-2021 End: 12-17-2022 Tobacco smoking status Never smoked tobacco (finding) [facility] Start: 02-10-2024 End: 02-11-2025 Sex Assigned At Female [facility] Tobacco smoking status Never [facility] [place] Start: 1950 Sex Assigned At Female F [facility] Start: 08-07-2024 End: 10-18-2024 Sex Female (finding) [facility] Start: 12-17-2022 End: 10-16-2024 Tobacco use and exposure Smokeless tobacco non-user [facility] Start: 02-10-2024 End: 02-11-2025 History of Social function [facility] Start: 1950 Sex assigned at Not on file [facility] unknown [facility] Start: 10-16-2024 End: 01-10-2025 Alcoholic beverage intake Lifetime non-drinker (finding) [facility] Goals Date Patient Goal Desired Activity /State Functional Status Date Assessment Result Facility 06-12-2024 Functional Status N/A [facility] 04-09-2024 Functional Status N/A [facility] 02-15-2024 Functional Status N/A [facility] 07-27-2023 Functional Status N/A [facility] 01-11-2023 Functional Status N/A [facility] 12-23-2022 Functional Status N/A [facility] 08-10-2022 Functional Status N/A [facility] 05-12-2022 Functional Status N/A [facility] 01-19-2022 Functional Status N/A [facility] Clinical Notes 11-12-2021 to 02-11-2025 LYRIC Whitley - 02/11/2025 10:00 AM EDTTelephone Encounter - Jaclyn Stewart APRN.SUPERINTENDENT [employer] STORAGE - 01/17/2025 9:51 AM EDTTelephone Encounter - Jaclyn Stewart APRN.SUPERINTENDENT [employer]ITION STORAGE - 01/17/2025 9:51 AM EDT Note Date [...] limited to risks of scarring, darker or telegraph repeater technician pigmentary changes, recurrence, incomplete removal and infection. [...] Visit: 1 year documented in this encounter [facility] 01-17-2025 Telephone encounter Note Form atting [...] 1 week after EGD. Jaclyn Stewart APRN.CNP [facility] 01-17-2025 Miscellaneous Notes Formattin g of [...] Jaclyn Stewart APRN.CNP documented in this encounter [facility] 01-16-2025 Evaluation note Diagnosis Onset Date [...] [facility] Work Phone: [phone] Nurse Note* Arben Desouza RN - 01/10/2025 [...] MATERIAL: Procedure Discharge Instructions REFERRAL (RECOMMENDATION): None [facility]06-26-2025 Nurse Note* Arben Desouza RN - [...] RN In Department: [facility]STR[facility]ENTEROLOGY [facility] Note* Genevieve Jara RN - [...] By: GENEVIEVE JARA RN In Department: GASTROENTEROLOGY [facility]06-19-2025 Nurse Note* Awa Lemon RN - 01/03/2025 2:24 PM EDT GI Pre-Procedure Spoke with patient: Yes Confirmed date scheduled and patient report time: Yes Procedure Planned:Esophagogastroduodenoscopy(EGD) for control of bleeding,dilation(any means),imaging,tube placement Is the patient on blood thinners?no Procedure Instructions given to patient: Yes, and they verbalized their understanding of instructions given Patient instructed to have family/friend present for procedure transport home:Patient/patient community representative was told that if they do [...] area. Any barriers to Patient learning: Patient/Patient Film Recordist responded appropriately on phone. Type of instruction given: Verbal by telephone contact. KATIA Al [facility]06-19-[facility] Nurse Note* Awa Lemon RN - 01/03/2025 2:24 PM EDT GI Pre-Procedure Spoke with patient: Yes Confirmed date scheduled and patient report time: Yes Procedure Planned:Esophagogastroduodenoscopy(EGD) for control of bleeding,dilation(any means),imaging,tube placement Is the patient on blood thinners?no Procedure Instructions given to patient: Yes, and they verbalized their understanding of instructions given Patient instructed to have family/friend present for procedure transport home:Patient/patient community representative was told that if they do [...] area. Any barriers to Patient learning: Patient/Patient Film Recordist responded appropriately on phone. Type of instruction given: Verbal by telephone contact. KATIA Al documented in this encounterMer[facility]04-[facility] History of Present illness Narrative* Fatuma Phipps, LEATHER COVERER-SUPERINTENDENT AMMUNITION STORAGE - 10/18/2024 1:20 PM EDT Follow up [...] limited to risks of scarring, darker or telegraph repeater technician pigmentary changes, recurrence, incomplete removal and infection. [...] weeks, follow up ISKs documented in this encounterCapital Region Medical [id number] Evaluation note* Diagnosis Onset Date Resolution Status Admit Date Dysphagia acute October 18 10:44am GERD (gastroesophageal reflu x disease) acute October 18, 2024 10:44am Schatzki's ring acute October 10:44am Squamous papilloma acute October 18, 2024 10:44am Encounter for subsequent annual wellness visit in Medicare patient noneactive January 16, 2025 11:01am [facility] Work Phone: 1(251) 391-734804-01-2025 Instructions* Patient Instructions* Jaclyn Stewart APRN.CNP - 10/16/2024 1:44 PM EDT -take first dose of pantoprazole as you have been, take second dose a half hour to an hour before dinner. -schedule EGD at [facility] [place] to be done in 8-12 weeks, to reschedule [phone] option 0. Must have cdl driver. documented in this encounterMer[facility]04-01-2025 NoteHNO ID: [id number] Author: JACLYN STEWART APRN.CNP Service: ? Author [...] following chief complaint: Patient underwent EGD at [facility], 2 cm esophageal lesion was noted 33 cm from the incisors. Bx confirm inflammatory lesion and eosinophilic esophagitis. Presenting to [facility] for further management/second opinion. Patient reports dysphagia symptoms started awhile ago, one incident food got stuck and she had a hard time getting it to go down, prompting visit to local GI. Since EGD locally has been taking twice daily pantoprazole 40 mg, by at least an hour from levothyroxine. Does patient have achalasia? No GI EVALUATION Reviewed EGD 10/03/24 at [facility] Folds and furrows circumferential esophagus, 2 [...] daily. Repeat EGD in 8-12 weeks at [facility] with distal and proximal esophageal bx. - EGD - THERAPEUTIC, EUS, OR TUBE INTERVENTIONS - EGD - THERAPEUTIC, EUS, OR TUBE INTERVENTIONS 2. Esophageal lesion - ICD9: 530.9, ICD10: K22.9 2 cm lesion 33 cm from the incisors was found on local EGD, bx reveal inflammatory, no malignancy. Will reassess lesion with bx during repeat EGD at [facility]. - EGD - THERAPEUTIC, EUS, OR TUBE INTERVENTIONS - EGD - THERAPEUTIC, EUS, OR TUBE INTERVENTIONS Jaclyn Stewart APRN.GERMAINE I spent a total of 45 minutes on the date of the service which included preparing to see the patient, czya-ma-gmza patient care, completing clinical documentation, obtaining and/or reviewing separately obtained history, performing a medically appropriate examination, counseling and educating the patient/family/caregiver, ordering medications, tests, or procedures, communicating with other HCPs (not separately reported), independently interpreting results (not separately reported), communicating results to the patient/family/caregiver, and care coordination (not separately reported). Jaclyn Stewart APRN.GERMAINE October 16, 2024 1:23 [facility]04-01-2025 History of Present illness Narrative * Jaclyn Stewart APRN.SUPERINTENDENT AMMUNITION STORAGE - 10/16/2024 1:23 PM EDT Images from [...] the following chiefcomplaint: Patient underwent EGD at [facility], 2 cm esophageal lesion was noted [...] No GI EVALUATION Reviewed EGD 10/03/24 at [facility] Folds and furrows circumferential esophagus, 2 [...] daily. Repeat EGD in 8-12 weeks at [facility] with distal and proximal esophageal bx. - EGD - THERAPEUTIC, EUS, OR TUBE INTERVENTIONS - EGD - THERAPEUTIC, EUS, OR TUBE INTERVENTIONS 2. Esophageal lesion - ICD9: 530.9, ICD10: K22.9 2 cm lesion 33 cm from the incisors was found on local EGD, bx reveal inflammatory, no malignancy. Will reassess lesion with bx during repeat EGD at [facility]. - EGD - THERAPEUTIC, EUS, OR TUBE INTERVENTIONS - EGD - THERAPEUTIC, EUS, OR TUBE INTERVENTIONS Jaclyn Stewart APRN.GERMAINE I spent a total of 45 minutes on the date of the service which included preparing to see the patient, ysxl-dg-vvlk patient care, completing clinical documentation, obtaining and/or reviewing separately obtained history, performing a medically appropriate examination, counseling and educating the pat ient/family/caregiver, ordering medications, tests, or procedures, communicating with other HCPs (not separately reported), independently interpreting results (not separately reported), communicatingresults to the patient/family/caregiver, and care coordination (not separately reported). Jaclyn Stewart APRN.CNP October 16, 2024 1:23 PM documented in this encounterMercy Health [facility]rb[facility]03-31-2025 NoteHNO ID: [id number] Author: BLANCA DESOUZA RN Service: ? Author Type: Registered Nurse Type: Progress Notes Filed: 10/16/2024 08:43 Note Text: New Patient/Consult REASON FOR VISIT Tarah Briseno is a 74 year old female who is scheduled for esophageal tumor at the consult request of . [facility]24[facility]03[facility] History of Present illness Narrative* Blanca Desouza RN - 10/15/2024 11:06 AM EDT Images from the original note were not included. New Patient/Consult REASON FOR VISIT Tarah Briseno is a 74 year old female who is scheduled for esophageal tumor at the consult request of . EGD 10/03/2024 documented in this encounterMercy Health [facility]rbana [facility]03-19-2025 [place] [address] Gastroenterology H&P Signed Patient: Tarah Briseno MR#: [id number] : 1950 Acct:[id number] Age/Sex: 74 / F Adm Date: 5 [...] MD 10/03/24 1135 Signed By: 10/03/24 1135 [facility]03-19-2025 [place] [id number] EGD Procedure Note Signed Patient: Tarah Briseno MR#: [id number] : 1950 Acct:[id number] Age/Sex: 74 / F Adm Date: 5 [...] MD 10/03/24 1136 Signed By: 10/03/24 1140 [facility]02-26-2025 History of Present illness Narrative * Fatuma Phipps, LEATHER COVERER-SUPERINTENDENT AMMUNITION STORAGE - 09/12/2024 1:10 PM EST Follow up [...] limited to risks of scarring, darker or telegraph repeater technician pigmentary changes, recurrence, incomplete removal and infection. [...] Next Visit: 4 weeks documented in this encounterCapital Region Medical [id number] History of Present illness Narrative* CITLALY Alcaraz [...] limited to risks of scarring, darker or telegraph repeater technician pigmentary changes, recurrence, incomplete removal and infection. [...] month, follow up ISKs documented in this encounterCapital Region Medical [id number] Evaluation note* Diagnosis Onset Date Resolution Status Admit Date Atypical chest pain acute 2024 11:29am Dysphagia acute August 07, 2024 11:29am GERD (gastroesophageal reflu x disease) acute August 07 11:29am Atypical chest pain acute 2024 10:36am Dysphagia acute September 06, 2024 10:36am GERD (gastroesophageal reflu x disease) acute September 06 025 10:36am Schatzki's ring acute September 06, 2024 10:36am [facility] Work Phone: 1(950) 774-601101-21-2025 Evaluation note* Diagnosis Onset Date Resolution Status [...] [facility] Work Phone: 1(411) 822-196111-26-2024 Evaluation note* Diagnosis Onset Date Resolution Status Admit Date GERD (gastroesophageal reflu x disease) acute June 12, 2 024 3:00pm Dysphagia acute August 07, 2024 11:29am [facility] Work Phone: 1(660) 278-558411-26-2024 Evaluation note* Diagnosis Onset Date Resolution Status Admit Date GERD (gastroesophageal reflu x disease) acute June 12, 2 024 3:00pm Atypical chest pain acute 2024 11:29am Dysphagia acute August 07, 2024 11:29am GERD (gastroesophageal reflu x disease) acute August 07 11:29am Dysphagia acute September 06, 2024 10:36am [facility] Work Phone: 1(485) 904-533611-26-2024 Hospital Discharge instructions Patient Education 06/12/2024 11:13:21 [...] (electrical nerve stimulation). ?For women, using a faculty i on call medical assistant to prevent urine leaks. This is a [...] right after experiencing incontinence. General instructions Take aqol-gyy-twrvmpp and prescription medicines only as told by [...] important. Where to find more information National [place] of Diabetes and Digestive and Kidney Diseases: www.niddk.nih.gov [place] [employer]: www.urologyhealth.org Contact a health care [...] provider. Document Revised: 02/06/2021 Document Reviewed: 02/06/2021 [employer] Patient Education 2023 [employer]. Follow Up Care 04/09/2024 13:43:38 With:[facility] Address: When: Unknown Comments:Only if needed/new problems arise. No scheduled appointment indicated at this time. [facility] 11-26-2024 NotePatient Education Urology Urinary [...] nerve stimulation). ? For women, using a faculty i on call medical assistant to prevent urine leaks. This is a [...] your health care provider (more content not included)...[facility] 04-09-2024 Hospital Discharge instructions Patient Education [...] Up Care 02/15/2024 13:54:28 With:Antonio AMBRIZ Address: [address] [place] [address] [address] [place] [address]- Business (1) When: Unknown Comments:Please make a follow up appointment with one of our nurse practitioners or physician assistants within two months with a bladder scan to assess your bladder emptying. Have a great day! [facility] 09-23-2024 NotePatient Education Cystoscopy with Botox [...] if you have a fever over 100 degrees.[facility] 02-15-2024 Hospital Discharge instructions Patient Education [...] (electrical nerve stimulation). ?For women, using a faculty i on call medical assistant to prevent urine leaks. This is a [...] right after experiencing incontinence. General instructions Take lver-njh-bkfqjhl and prescription medicines only as told by [...] important. Where to find more information [place] of Diabetes and Digestive and Kidney Diseases: www.niddk.nih.gov [place] [employer] Association: www.urologyhealth.org Contact a health care [...] provider. Document Revised: 02/06/2021 Document Reviewed: 02/06/2021 [employer] Patient Education 2022 [employer]. 02/15/2024 13:25:40 Overactive Bladder, Adult Overactive Bladder, [...] your health care provider. General instructions Take lcgl-iin-wfnxzzr and prescription medicines only as told by [...] provider. Document Revised: 03/23/2021 Document Reviewed: 03/23/2021 [employer] Patient Education 2022 [employer] Follow Up Care 07/27/2023 11:24:53 With:MADELIN CORDOBA, Antonio Alonzo, URL Address: [address] [address]- When: Unknown Comments:Juanita Carreon [facility] 07-31-2024 NotePatient Education Obstetrics and Gynecology [...] health care provider. General instructions ? Take jctf-fha-cksqadw and prescription medicines only as told by [...] help your health care (more content not included)...[facility]01-10-2024 Hospital Discharge instructions Patient Education 07/27/2023 [...] (electrical nerve stimulation). ?For women, using a faculty i on call medical assistant to prevent urine leaks. This is a [...] right after experiencing incontinence. General instructions Take wsba-dea-bnlnnrw and prescription medicines only as told by [...] important. Where to find more information National [place] of Diabetes and Digestive and Kidney Diseases: www.niddk.nih.gov [place] [employer] Association: www.urologyhealth.org Contact a health care [...] provider. Document Revised: 02/06/2021 Document Reviewed: 02/06/2021 [employer] Patient Education 2022 [employer] Follow Up Care 01/11/2023 10:33:06 With:MADELIN CORDOBA, Antonio Alonzo, URL Address: [address] [place] [address]- When: Unknown [facility] 06-27-2023 Hospital Discharge instructions Patient Education 01/11/2023 [...] your health care provider. General instructions Take mkug-qby-wojpbyl and prescription medicines only as told by [...] provider. Document Revised: 03/23/2021 Document Reviewed: 03/23/2021 [employer] Patient Education 2022 [employer] Follow Up Care 12/07/2022 09:30:53 With:WOLFGANG CORDOBA, Oh Bradshaw, URL Address: [address] [place] [phone]- [phone] When:Within 6 Month(s) Comments:Dr. Ambriz [facility] 05-23-2023 Hospital Discharge instructions Follow Up Care 12/07/2022 09:39:03 With:Oh GOSS Address: [address] [place] [phone]- Business (1) When:1 week With:Oh GOSS Address: [address] [place] [phone]- Business (1) When: Unknown [facility]01-24-2023 Hospital Discharge instructions Patient Education 08/10/2022 [...] (electrical nerve stimulation). For women, using a faculty i on call medical assistant to prevent urine leaks. This is a [...] right after experiencing incontinence. General instructions Take htkd-fej-ytbywtl and prescription medicines only as told by [...] 08/11/2005 Document Revised: 07/14/2018 Document Reviewed: 10/13/2017 [employer] Patient Education 2020 [employer]. Follow Up Care 07/07/2022 12:08:02 With:WOLFGANG CORDOBA, Oh W, URL Address: [address] [place] [address]- When: Unknown [facility] 07-05-2022 Hospital Discharge instructions Patient Education [...] fried and sweet foods. General instructions Take qccv-oyu-advbsrg and prescription medicines only as told by [...] 04/30/2010 Document Revised: 10/25/2019 Document Reviewed: 07/20/2018 [employer] Patient Education 2019 [employer] Follow Up Care 01/06/2021 11:55:31 With:Deo Fermin MD, Vida Diaz, URO Address: [facility] [address], [place] [address]- [phone] When: Unknown [facility] 04-28-2022 Hospital Discharge instructions Patient Education [...] (electrical nerve stimulation). For women, using a faculty i on call medical assistant to prevent urine leaks. This is a [...] right after experiencing incontinence. General instructions Take nqir-rgp-gaqvoda and prescription medicines only as told by [...] 08/11/2005 Document Revised: 07/14/2018 Document Reviewed: 10/13/2017 [employer] Patient Education 2020 [employer]. 11/12/2021 12:04:09 Overactive Bladder, Adult Overactive Bladder, [...] fried and sweet foods. General instructions Take hupu-tqd-eemvksa and prescription medicines only as told by [...] 04/30/2010 Document Revised: 10/25/2019 Document Reviewed: 07/20/2018 [employer] Patient Education 2020 [employer]. Follow Up Care 07/09/2021 11:32:05 With:Vida Desouza Jr., MD, URO Address: [phone] When:01/12/2022 [facility] Evaluation + Plan note Future Appointments Appointment Date:01/19/2022 09:15:00 AM Scheduled Provider:Vida Desouza Jr., MD Location:[facility] Appointment Type:URO Office Visit [facility] Evaluation + Plan note Future Appointments Appointment Date:07/07/2022 10:00:00 AM Scheduled Provider: Location:[facility] Appointment Type:Urology FT Appointment Date:07/07/2022 11:00:00 AM Scheduled Provider: Location:[facility] Appointment Type:Urology FT General Surgery [place] Evaluation + Plan note Future Appointments Appointment Date:11/02/2022 12:15:00 PM Scheduled Provider:Oh GOSS MD Location:[facility] Appointment Type:URO Office Visit [facility] Evaluation + Plan note Future Appointments Appointment Date:01/05/2023 09:15:00 AM Scheduled Provider: Location:[facility] Appointment Type:Urology FT Appointment Date:01/11/2023 09:30:00 AM Scheduled Provider:Oh GOSS MD Location:[facility] Appointment Type:URO Office Visit Diagnostic Tests Pending * Urine [facility]ments Appointment Date:01/11/2023 09:30:00 AM Scheduled Provider:Oh GOSS MD Location:[facility] Appointment [facility] App[facility]ments Appointment Date:07/27/2023 10:15:00 AM Scheduled Provider:Antonio AMBRIZ MD Location:[facility] Appointment Type:URO Office Visit [facility] Evaluation + Plan note Future Appointments Appointment Date:07/27/2023 10:15:00 AM Scheduled Provider:Antonio AMBRIZ MD Location:[facility] Appointment Type:URO Office Visit Appointment Date:03/26/2024 01:00:00 PM Scheduled [facility] Medicare Wellness [facility] Appointments Appointment Date:02/15/2024 01:30:00 PM Scheduled Provider:Antonio AMBRIZ MD [facility] Appointment Type:URO Office Visit Appointment Date:03/26/2024 01:00:00 PM Scheduled Provider: Location:[facility] Appointment Type:FM Medicare Wellness Subsequent [facility] Evaluation + Plan note Future Appointments Appointment Date:03/26/2024 01:00:00 PM Scheduled Provider: Location:[facility] Appointment Type:FM Medicare Wellness Subsequent Appointment Date:04/06/2024 09:00:00 AM Scheduled Provider: Location:[facility] Appointment Type:Urology CALL PAT FT Appointment Date:04/09/2024 01:15:00 PM Scheduled Provider: Location:[facility] Appointment Type:Urology FT [facility] evaluation + Plan note Future Appointments Appointment Date:06/12/2024 10:20:00 AM Scheduled Provider:JACQUELINE HUFF PA-C Location:[facility] Appointment Type:URO Office Visit [facility] Evaluation + Plan note Future Appointments Appointment Date:04/06/2024 09:00:00 AM Scheduled Provider: Location:[facility] Appointment Type:Urology CALL PAT FT Appointment Date:04/09/2024 01:15:00 PM Scheduled Provider: Location:[facility] Appointment Type:Urology FT [facility] evaluation note* Diagnosis Onset Date Resolution Status Screening for colon cancer a [facility] Work Phone: Evaluation note* Diagnosis Onset Date Resolution Status Asthma acute Hyperlipemia acute Hypothyroid acute Screening for colon cancer a [facility] Work Phone: Evaluation note* Diagnosis Inflamed seborrheic keratosis documented in this encounter [facility] Healthcare[facility] note* Diagnosis Inflamed seborrheic keratosis documented in this encounter [facility] HealthcareEvaluation note* Diagnosis Eosinophilic esophagitis- Primary Esophageal lesion Unspecified disorder of esophagus [facility] Diagnosis Eosinophilic esophagitis- Primary Esophageal lesion Unspecified disorder of esophagus documented [facility]* Diagnosis Eosinophilic esophagitis- Primary documented in this encounter [facility]* Diagnosis Melanocytic nevus of trunk- Primary Benign neoplasm of skin of trunk, except scrotum Seborrheic keratosis Inflamed seborrheic keratosis documented in this encounter [facility] Healthcare[facility] and physical note Author Alicia Wilks [facility] Note Date/Time October 03, 2024 12: 30pm [facility] [address] [place] [address] Gastroenterology H&P Signed Patient: Tarah Briseno MR#: [id number] : 1950 Acct:[id number] Age/Sex: 74 / F Adm Date: 5 Loc: Room: Type: [facility] Attending Dr: Alicia Wilks MD Copies to: MD Jacqueline Sears APRN, SUPERINTENDENT AMMUNITION STORAGE~ Date of Service: 10/03/2024 HISTORY & PHYSICAL: [...] signed by Alicia Wilks MD> 10/03/24 1135 [facility] Work Phone: Hospital course Narrative No data available for this section [facility] Discharge instructions No data available for this section [facility] Orders* Referral to Gastroenterology Time Frame: 08/07/24, Location: None Selected [facility] Work Phone: Progress note No data available for this section [facility] reason for referral (narrative)No reason for referral [...] INTERVENTIONS EGD DILATION GASTRIC/DUODENAL STRICTURE Jaclyn Stewart, [place].SUPERINTENDENT AMMUNITION STORAGE [address] [place] [address] Phone: tel: fax: [facility] [address] [place] [address] Referral ID Status Reason Start Date Expiration Date V isits Requested Visits Authorized [id number] Closed Auto-Generate d Referral 10/16/2024 10/16/2025 1 1 [facility] Summary Purpose Family History No Family [...] End: January 10, 2024 Jacqueline Hernandez APRN ROUTE DELIVERY MANAGER-C Attending Provider Act mecca Start: January 10, 2024 End: January 10, 2024 Team Status: Active Member Role Status Dates Jacqueline Hernandez APRN ROUTE DELIVERY MANAGER-C Primary Care Provider Active Team Status: Inactive Member Role Status Dates Jacqueline Hernandez APRN ROUTE DELIVERY MANAGER-C Primary Care Provider, Attending Provider Active Start: February 17, 2024 End: February 17, 2024 Team Status: Inactive Member Role Status Dates Jacqueline Hernandez APRN ROUTE DELIVERY MANAGER-C Primary Care Provider, Attending Provider Active Start: June 12, 2024 End: June 12, 2024 Team Status: Inactive Member Role Status Dates Jacqueline Hernandez APRN ROUTE DELIVERY MANAGER-C Primary Care Provider, Attending Provider Active Start: August 07, 2024 End: August 07, 2024 Branch Office Manager Relationship Specialty Start Date End Date Colby Escobar MD [address] [place] [id number] PCP - General Family Medicine 07/21/23 Branch Office Manager Relationship Specialty Start Date End Date Colby Escobar MD [address] [place] [address], [place] [address] PCP - General Family Medicine 07/21/23 Team Status: Inactive Member Role Status Dates Jacqueline Hernandez APRN ROUTE DELIVERY MANAGER-C Primary Care Provider, Referring Provider Active Start: September 06, 2024 End: September 06, 2024 [place] APRN Attending Provider Active Start: September 06, 2024 End: September 06, 2024 Branch Office Manager Relationship Specialty Start Date End Date Colby Escobar MD [address] [place] [address], [place] [address] PCP - General Family Medicine 07/21/23 Team Status: Inactive Member Role Status Dates Jacqueline Hernandez APRN ROUTE DELIVERY MANAGER-C Primary Care Provider Active Start: October 03, 2024 End: October 03, 2024 Alicia Wilks MD Attending Provider Active Start: October 03, 2024 End: October 03, 2024 Team Status: Active Member Role Status Dates Jacqueline Hernandez APRN ROUTE DELIVERY MANAGER-C Primary Care Provider Active Start: October 03, 2024 Alicia Wilks MD Attending Provider, Other Provider Active Start: October 03, 2024 Branch Office Manager Relationship Specialty Start Date End Date Raul Lewis MD [address] [place] [address] PCP - General 02/10/04 Team Status: Inactive Member Role Status Dates Jacqueline Hernandez APRN ROUTE DELIVERY MANAGER-C Primary Care Provider Active Start: October 18, 2024 End: October 18, 2024 [place] APRN Attending Provider Active Start: October 18, 2024 End: October 18, 2024 Branch Office Manager Relationship Specialty Start Date End Date Raul Lewis MD [address] [place] [address] PCP - General 02/10/04 Branch Office Manager Relationship Specialty Start Date End Date Raul Lewis MD [address] [place] [address] PCP - General 02/10/04 Branch Office Manager Relationship Specialty Start Date End Date Raul Lewis MD [address] [place] [address] PCP - General 02/10/04 Team Status: Inactive Member Role Status Dates Jacqueline Hernandez APRN ROUTE DELIVERY MANAGER-C Primary Care Provider Active Start: January 16, 2025 End: January 16, 2025 Jacqueline Hernandez APRN ROUTE DELIVERY MANAGERKarleneC Attending Provider Act [place] Start: January 16, 2025 End: January 16, 2025 Branch Office Manager Relationship Specialty Start Date End Date Raul Lewis MD [address] [place] [address] PCP - General 02/10/04 Team Status: Inactive Member Role Status Dates Jacqueline Hernandez APRN ROUTE DELIVERY MANAGER-C Primary Care Provider Active Start: January 28, 2025 End: January 28, 2025 [place] APRN Attending Provider Active Start: January 28, 2025 End: January 28, 2025 Branch Office Manager Relationship Specialty Start Date End Date Colby Escobar MD [address] [place] [address] PCP - General Family Medicine 07/21/23 Branch Office Manager Relationship Specialty Start Date End Date Colby Escobar MD [address] [place] [address] PCP - General Family Medicine 07/21/23 INFORMATION SOURCE (unrecogn ized section and content) DATE CREATED AUTHOR 05/19/2022 [facility] DATE CREATED AUTHOR AUTHOR'S ORGANIZ ATION 06/14/2024 [facility] DATE CREATED AUTHOR AUTHOR'S ORGANIZ ATION 10/14/2024 [facility] DATE CREATED AUTHOR AUTHOR'S ORGANIZ ATION 01/15/2025 [facility] DATE CREATED AUTHOR AUTHOR'S ORGANIZ ATION 02/11/2025 [facility] EPIC Goals (unrecognized section [...] or prosecute any alcohol or drug abuse patient.[facility] Hospital[facility] the event this information is protected by the Federal Confidentiality of Alcohol and Drug Abuse Patient Records regulations: The Federal rules restrict any use of the information to criminally investigate or prosecute any alcohol or drug abuse patient.[facility] Hospital[facility] the event this information is protected by the Federal Confidentiality of Alcohol and Drug Abuse Patient Records regulations: The Federal rules restrict any use of the information to criminally investigate or prosecute any alcohol or drug abuse patient.[facility] Hospital[facility] the event this information is protected by the Federal Confidentiality of Alcohol and Drug Abuse Patient Records regulations: The Federal rules restrict any use of the information to criminally investigate or prosecute any alcohol or drug abuse patient.[facility] HospitalIn the event this information is protected by the Federal Confidentiality of Alcohol and Drug Abuse Patient Records regulations: The Federal rules restrict any use of the information to criminally investigate or prosecute any alcohol or drug abuse patient.[facility] HospitalIn the event this information is protected by the Federal Confidentiality of Alcohol and Drug Abuse Patient Records regulations: The Federal rules restrict any use of the information to criminally investigate or prosecute any alcohol or drug abuse patient.[facility] FOR RECORDS PERTAINING TO PATIENTS WHO [...] BE BASED ON THE PRIMARY CLINICAL RECORDS. [facility] [employer] [facility]. provides no warranty or guarantee of the accuracy or completeness of information in this document.
[2025-03-11 09:52] LABS: Hematocrit 46.6 % (36.0-48.0); Hemoglobin 15.1 g/dL (12.0-16.0); Immature Granulocytes Abs Auto 0.04 10^3/uL (0.00-0.03); Immature Granulocytes Pct Auto 0.5 % (0.0-0.5); Lymphocytes Absolute Auto 2.5 10^3/uL (1.2-3.8); Mean Corpuscular HGB Conc 32.4 g/dL (29.9-35.2); Mean Corpuscular Hemoglobin 29.0 pg (26.7-34.0); Mean Corpuscular Volume 89.4 fL (81.0-99.0); Platelet Count 260 10^3/uL (150-450); Red Blood Count 5.21 10^6/uL (4.20-5.40); White Blood Count 7.9 10^3/uL (4.0-11.0)
[2025-03-11 11:04] LABS: Alanine Aminotransferase 27 U/L (14-59); Albumin Globulin Ratio 0.8; Albumin Level 3.1 g/dL (3.4-5.0); Alkaline Phosphatase 111 U/L (46-116); Anion Gap 7.8; Aspartate Amino Transferase 21 U/L (15-37); Blood Urea Nitrogen 12.0 mg/dL (7.0-18.0); Calcium 8.9 mg/dL (8.5-10.1); Carbon Dioxide 29.5 mmol/L (21.0-32.0); Chloride 108 mmol/L (98-107); Cholesterol 141 mg/dL (<=200); Estimated GFR (African America >60 (>=60 mL/min/1.73m^2); Estimated GFR (Non-African Ame >60 (>=60 mL/min/1.73m^2); Globulin 4.0 g/dL; Glucose 81 mg/dL (74-106); HDL Cholesterol 55 mg/dL (40-60); Potassium 4.3 mmol/L (3.5-5.1); Sodium 141 mmol/L (136-145); TSH W/ REFLEX FT4 1.750 uIU/mL (0.358-3.740); Total Protein 7.1 g/dL (6.4-8.2); Triglycerides 112 mg/dL (<=150); VLDL CHOLESTEROL 22.4 mg/dL
== END 2025-03-11 08:50 | disposition home or self-care (01) ==
LOC: MAMMO 08:49
PROVIDERS: PCP Nurse Practitioner Family; Visit Provider Nurse Practitioner Family
DX: E78.5 Hyperlipidemia, unspecified (principal); E03.9 Hypothyroidism, unspecified; Z80.3 Family history of malignant neoplasm of breast; Z80.8 Family history of malignant neoplasm of other organs or systems; Z78.0 Asymptomatic menopausal state; Z13.820 Encounter for screening for osteoporosis; Z12.31 Encounter for screening mammogram for malignant neoplasm of breast
CPT/HCPCS: 36415; 77063; 77067; 77080; 80053; 80061; 84443; 85025

== ENCOUNTER 2025-04-11 10:59 | Outpatient (OUT) | payer MEDICARE, SELFPAY ==
--- OUTSIDE RECORDS SUMMARY | 2025-04-11 11:02 | XMS_ITS | CCD ---
Author Organization [facility] Care Team Providers Care Male Infertility Specialist Name Role Phone RAUL LEWIS Primary Care [...] SALGADO, DR VIDA Diaz Attending Unavailabl e WENDY, DR RAUL Pickard Primary Care Unavailable DEO SALGADO, DR VIDA Diaz Consulting Unavailabl e WENDY, DR RAUL Pickard Primary Care Unavailable WENDY, DR RAUL Pickard Admitting Unavailable WENDY, DR RAUL Pickard Attending Unavailable WENDY, DR RAUL Pickard Consulting Unavailable RAUL LEWIS Primary Care Physician [phone] Colby Escobar Primary Care Physician JACQUELINE HERNANDEZ Primary Care Physician Colby Escboar MD Primary Care Provider Jacqueline Hernandez APRN Primary Care Provider Alicia Wilks MD Attending Provider [phone] Lashaun, Imad Admitting Unavailable GarrettadAneudyad Attending Unavailable Jacqueline Hernandez Primary Care Unavailable Raul Lewis MD Primary Care Provider [phone] RAUL LEWIS Primary Care Unavailable LUIS CARSON Attending UnavailJACLYN Acosta Referring Unavailable RAUL LEWIS Primary Care Unavailable JACLYN STEWART Attending Unavailable Jacqueline Hernandez APRN Primary Care Provider [place] Manzo APRN Attending Provider Jacqueline Hernandez APRN Attending Provider Jacqueline Hernandez APRN Primary Care Provider Lake Manzo APRN Attending Provider FATUMA PHIPPS Attending Unavailable FATUMA PHIPPS Attending Unavailable JERMAIN, FATUMA Cartagena Attending Unavailable SAMUEL SHORE Attending Unavailable YANCY CARR Attending Unavailable Minnie Haro CMA Attending Provider Unavaila Antonio Henriquez Attending Unavailable COOKAntonio P Admitting Unavailable COOKAntonio Referring Unavailable COOKAntonio P Attending Unavailable OrzechSarah Attending Unavailable JACQUELINE HUFF Attending Unavailable Allergies Allergy Classification Reported Allergen(s) Allergy Type Date of Onset Reaction(s) Facility (20 sources) Iodine; Translations: [iodine] Drug Allergy 04-06-20 04 Unknown (qualifier value), Anaphylactic shock, Anaphylaxis [facility] (20 sources) Latex; Translations: [latex] Propensity to adverse reactions to substance 12-21-19 23 Unknown (qualifier value), Hives [facility] (1 source) Iodine (And Iodine Containting Drugs) Drug allergy (disorder) [facility] Repository (2 sources) Acetaminophen; Translations: [acetaminophen] Drug Allergy Unknown (qualifier value) [facility] (12 sources) Acetaminophen Drug Allergy 07-21-19 24 [facility] (14 sources) Other; Translations: [OTHER] Propensity to adverse reactions 04-06-20 04 [facility] (1 source) Iodine Drug Allergy 10-04-19 25 [facility] Repository (1 source) Acetaminophen / Codeine; Translations: [Tylenol with Codeine] Drug Allergy [facility] Repository (1 source) Naproxen; Translations: [Naprosyn] Drug Allergy [facility] Repository Medications Current Medications Medication Drug Class(es) Dates Sig (Normalized) Sig (Original) [id number] 200 actuat albuterol 0.09 mg/actuat metered dose inhaler (20 sources) beta2-Adrenergic Agonist Start: 04-06-2023 take 2 puff(s) by mouth every four hours Proventil HFA 90 mcg/inh Aerosol 2 puff(s), Oral, q4hr Shortness of breath or wheezing, 1 kit(s), Refill(s) 0, [facility] [id number], 163, cm, 04/06/23 15:43:00 EDT, Height/Length Dosing, 107, kg, 04/06/23 15:43:00 EDT, Weight Dosing Start Date: 04/06/23 Status: Ordered Quantity: 1.0 Unit: kit(s) Repeat number: 1 Start: 04-06-2023 albuterol HFA (Proventil HFA) 90 [...] DAILY, # 90 tab(s), Refills(s) 0, Pharmacy: [facility] [id number], 165, cm, 07/27/23 10:57:00 EST, Height/Length Dosing, 115, kg, 07/27/23 10:57:00 EST, Weight Dosing Start Date: 08/30/23 Status: Ordered Quantity: 90.0 Unit: tab(s) Repeat number: 1 Start: 06-01-2023 take 1 tablet by raf th once daily atorvastatin 40 mg Tab See Instructions, TAKE 1 TABLET BY MOUTH DAILY, # 90 tab(s), Refills(s) 0, Pharmacy: [facility] [id number], 163, cm, 04/06/23 15:43:00 EDT, Height/Length Dosing, 107, kg, 04/06/23 15:43:00 EDT, Weight Dosing Start Date: 06/01/23 Status: Ordered Start: 02-23-2023 take 1 tablet by raf once daily atorvastatin 40 mg Tab 40 mg = 1 tab(s), Oral, Daily, # 90 tab(s), Refills(s) 0, Pharmacy: [facility] [id number], 165mary, 01/11/23 9:47:00 EDT, Height/Length Dosing, 115, kg, 01/11/23 9:47:00 EDT, Weight Dosing Start Date: 02/23/23 Status: Ordered Start: 05-03-2022 take 1 tablet by raf once daily atorvastatin 40 mg Tab 40 mg = 1 tab(s), Oral, Daily, Refills(s) 0 Start Date: 05/03/22 Status: Ordered Start: 01-06-2021 take 1 mg by mouth once daily atorvastatin 10 mg Tab mg tab(s), Oral, Daily, Refills(s) 0 Start Date: 01/06/21 Status: Ordered cephalexin 500 mg oral capsule (7 sources) Cephalosporin Antibacterial Start: 03-12-2025 take 1 capsule by mouth twice daily Cephalexin 500 mg capsule Active 500 MG PO Twice daily 14 March 12, 2025 12:00am Complies with drug therapy Start: 02-15-2024 End: 02-22-2024 Keflex 500 mg Cap 500 mg = 1 cap(s), Oral, BID, Start 1 day prior to the procedure, X 7 day(s), # 14 cap(s), Refills(s) 0, Pharmacy: [facility] [id number], 165mary, 02/15/24 13:14:00 EDT, Height/Length Dosing, 106, kg, 02/15/24 13:14:00 EDT, Weight Dosing Start Date: 02/15/24 Stop Date: 02/22/24 Status: Ordered Start: 01-19-2022 take 1 capsule by mo [facility] once daily Keflex 500 mg Cap 500 mg = 1 cap(s), Oral, Daily, Take 1 tab day before procedure and 1 after procedure, # 2 cap(s), Refills(s) 0, Pharmacy: [facility] [id number], 165mary, 01/19/22 9:47:00 EDT, Height/Length Dosing, 115, kg, 01/19/22 9:47:00 EDT, Weight Dosing Start Date: 01/19/22 Status: Ordered Start: 05-07-2021 take 1 capsule by [facility] twice daily Keflex 500 mg Cap 500 mg = 1 cap(s), Oral, BID, pt to start day prior to procedure., # 14 cap(s), Refills(s) 0, Pharmacy: [facility] [id number], 165, cm, 05/07/21 10:07:00 EDT, Height/Length Dosing, 115, kg, 05/07/21 10:07:00 EDT, Weight Dosing Start Date: 05/07/21 Status: Ordered ciclopirox 7.7 mg/ml topical cream (10 sources) Start: 06-12-2024 ciclopirox top ical 0.77% cream 1 kylie, Topical, BID, Refill(s) 0 Start Date: 06/12/24 Status: Ordered Repeat number: 1 Start: 10-26-2022 ciclopirox top ical 0.77% cream 1 kylie, Topical, BID, 30 gram, Refill(s) 3, [facility] [id number], 165.1, cm, 09/29/22 10:13:00 EDT, Height/Length Dosing, 109.8, kg, 09/29/22 10:13:00 EDT, Weight Dosing Start Date: 10/26/22 Status: Ordered ciprofloxacin 500 mg oral tablet (1 source) Quinolone Antimicrobial Start: 03-29-2025 Cipro 500 mg Tab 500 mg = 1 tab(s), Oral, BID, Take twice daily x5 days starting the day prior to the procedure, # 10 tab(s), Refills(s) 0, Pharmacy: [facility] [id number], 165, cm, 03/29/25 14:01:00 EDT, Height/Length Dosing, 105.5, kg, 03/29/25 14:01:00 EDT, Weight Dosing Start Date: 03/29/25 Status: Ordered Quantity: 10.0 Unit: tab(s) Repeat number: 1 ibuprofen 600 mg oral tablet (16 sources) Nonsteroidal Anti-inflammatory Drug Start: 04-14-2023 take 1 tablet by mouth every six hours as needed for pain ibuprofen 600 mg Tab 600 mg = 1 tab(s), Oral, q6hr, PRN Pain/Fever, # 30 tab(s), Refills(s) 0, Pharmacy: [facility] [id number], 163, cm, 04/06/23 15:43:00 EDT, Height/Length Dosing, 107, kg, 04/06/23 15:43:00 EDT, Weight Dosing Start Date: 04/14/23 Status: Ordered Quantity: 30.0 Unit: tab(s) Repeat number: 1 Start: 09-27-2022 ibuprofen 600 mg Tab Refills(s) 0 Start Date: 09/27/22 Status: Ordered Start: 04-06-2004 ADVIL 100MG TA BLET Indications: Pain in joint, shoulder region , Myalgia and myositis, unspecified take 4 pills 4 times daily 0 04/06/2004 Active omeprazole 40 mg delayed release oral capsule (5 sources) Proton Pump Inhibitor Start: 01-17-2025 End: 07-16-2025 take 1 capsule by mouth twice daily Omeprazole 40 mg capsule,delayed release(DR/EC) Active 40 MG PO Twice daily January 28, 2025 12:00am Complies with drug therapy solifenacin succinate 5 mg oral tablet (1 source) Cholinergic Muscarinic Antagonist Start: 11-12-2021 take 1 tablet by mouth once daily Vesicare 5 mg Tab 5 mg = 1 tab(s), Oral, Daily, # 30 tab(s), Refills(s) 2, Pharmacy: [facility] [id number], 165, cm, 11/12/21 11:38:00 EDT, Height/Length Dosing, 115, kg, 11/12/21 11:38:00 EDT, Weight Dosing Start Date: 11/12/21 Status: Ordered traMADol hydrochloride 50 mg oral tablet (5 sources) Opioid Agonist Start: 06-12-2024 take 1 tablet by mouth every four hours traMADOL 50 mg Tab = 1 tab(s), Oral, q4hr, Refills(s) 0 Start Date: 06/12/24 Status: Ordered Repeat number: 1 Start: 10-06-2023 take 1 tablet by raf th every four hours as needed for pain traMADOL 50 mg Tab 50 mg = 1 tab(s), Oral, q4hr, PRN for pain, # 12 tab(s), Refills(s) 0, Pharmacy: [facility] [id number], 165, cm, 10/06/23 11:01:00 EDT, Height/Length Dosing, [...] 20 mg tablet Discontinued 0 .ROUTE .COMPLEX August 09, 2024 8:50am September 06, 2024 11:41am TAKE 1 TABLET BY MOUTH 2 TIMES A DAY Start: 08-07-2024 End: 08-09-2024 take 1 tablet by mouth once daily Famotidine (Pepcid) 20 mg tablet Discontinued 20 MG PO Daily 30 August 07, 2024 12:51pm August 09, 2024 8:50am Start: 06-12-2024 End: 08-07-2024 take 1 tablet by mouth twice daily Famotidine (Pepcid) 20 mg tablet Discontinued 20 MG PO Twice daily 60 June 12, 2024 4:29pm August 07, 2024 12:51pm fluticasone propionate 0.05 mg/actuat metered dose nasal spray (14 sources) Corticosteroid Start: 03-15-2024 End: 09-06-2024 take [...] DAILY, # 90 tab(s), Refills(s) 0, Pharmacy: [facility] [id number], 165, cm, 10/06/23 11:01:00 EDT, Height/Length Dosing, 106.8, kg, 10/06/23 11:01:00 EDT, Weight Dosing Start Date: 11/04/23 Status: Ordered Quantity: 90.0 Unit: tab(s) Repeat number: 1 Start: 11-01-2023 End: 01-22-2025 take 1 tablet by mouth once daily Levothyroxine 25 mcg tablet Discontinued 25 MCG PO Daily January 10, 2024 12:00am October 25, 2024 12:59pm Start: 05-10-2023 take 1 tablet by raf th once daily levothyroxine 25 mcg (0.025 mg) Tab 25 mcg = 1 tab(s), Oral, Daily, # 90 tab(s), Refills(s) 1, Pharmacy: [facility] [id number], 163, cm, 04/06/23 15:43:00 EDT, Height/Length Dosing, 107, kg, 04/06/23 15:43:00 EDT, Weight Dosing Start Date: 05/10/23 Status: Ordered Start: 10-29-2022 take 1 tablet by raf th once daily levothyroxine 25 mcg (0.025 mg) Tab 25 mcg = 1 tab(s), Oral, Daily, # 90 tab(s), Refills(s) 1, Pharmacy: [facility] [id number], 165.1, cm, 09/29/22 10:13:00 EDT, Height/Length Dosing, [...] Ordered meclizine hydrochloride 25 mg oral tablet (16 sources) Antiemetic Start: 02-17-2024 End: 09-06-2024 take 1 tablet by mouth three times daily as needed for dizziness Meclizine 25 mg tablet Discontinued 25 MG PO Three times daily as needed for dizziness 16 05February 17, 2024 12:01pm September 06, 2024 11:41am pantoprazole 40 mg delayed release oral tablet (14 sources) Proton Pump Inhibitor Start: 10-03-2024 End: 04-14-2025 take 1 tablet by mouth twice daily Pantoprazole 40 mg tablet,delayed release (DR/EC) Discontinued 40 MG PO Twice daily October 03, 2024 12:00am January 28, 2025 11:10am triamcinolone acetonide 1 mg/ml topical cream (8 sources) Corticosteroid Start: 02-07-2024 End: 09-06-2024 Triamcinolone Acetonide 0.1 % cream Discontinued 1 APPLIC TOPICAL Twice daily 16 05February 07, 2024 12:00am September 06, 2024 11:41am Problems Active Problems Problem Classification Problem Date Documented Da te Episodic/Chronic Abdominal hernia (12 sources) Hiatal hernia 05-03-2022 Episodic Allergic reactions (8 sources) Contact dermatitis; Translations: [Unspecified contact dermatitis, unspecified cause] 02-07-2024 Episodic Asthma (20 sources) Asthma; Translations: [Unspecified asthma, uncomplicated] Onset: 2019 Chronic Conditions associated with dizziness or vertigo (8 sources) Vertigo; Translations: [Dizziness and giddiness] 02-17-2024 Episodic Coronary atherosclerosis and other heart disease (1 source) Coronary atherosclerosis and other heart disease Disorders of lipid metabolism (20 sources) Pure [...] [Urgency of urination] Onset: 1 Episodic Mycoses (10 sources) Candidal paronychia 09-29-2022 Episodic Nonspecific chest pain (11 sources) Atypical chest pain; Translations: [Other chest pain] 08-08-2024 Episodic Other and unspecified benign neoplasm (12 sources) History of polyp of colon 05-03-2022 Episodic Other and unspecified benign neoplasm (4 sources) Papilloma; Translations: [Benign neoplasm, unspecified site] 10-31-2024 Episodic Other and unspecified benign neoplasm (2 sources) Melanocytic nevus of trunk; Translations: [Melanocytic nevi of trunk] 02-11-2025 Episodic Other connective tissue disease (12 sources) Fibromyalgia 05-03-2022 Episodic Other connective tissue disease (12 sources) History of polymyalgia rheumatica 05-03-2022 Episodic Other connective tissue disease (5 sources) Trochanteric bursitis 10-06-2023 Episodic Other diseases of bladder and urethra (15 sources) Urethral stricture; Translations: [Other urethral stricture, female] Onset: 3 12-07-2022 Episodic Other diseases of kidney and ureters (16 sources) Cyst of kidney 10-07-2020 Episodic Other gastrointestinal disorders (10 sources) Dysphagia; Translations: [Dysphagia, unspecified] 08-07-2024 Episodic Other gastrointestinal disorders (9 sources) Dysphagia, unspecified; Translations: [Dysphagia, unspecified] Onset: 5 08-07-2024 Episodic Other lower respiratory disease (1 source) Rib pain; Translations: [Pleurodynia] 03-06-2025 Episodic Other nutritional; endocrine; and metabolic disorders (5 sources) Body mass index 40+ - severely obese 05-12-2022 Chronic Other nutritional; endocrine; and metabolic disorders (12 sources) Obesity; Translations: [Class 2 obesity without serious comorbidity in adult] Onset: 4 10-25-2023 Chronic Other nutritional; endocrine; and metabolic disorders (5 sources) Body mass index 30+ - obesity; Translations: [Body mass index (BMI) 39.0-39.9, adult] 01-16-2025 Chronic Other screening for suspected conditions (not mental disorders or infectious disease) (20 sources) Screening for malignant neoplasm of colon done; Translations: [Encounter for screening for malignant neoplasm of colon] Onset: 2 Episodic Other skin disorders (8 sources) Inflamed seborrheic keratosis; Translations: [Inflamed seborrheic keratosis] 2024 Episodic Other skin disorders (2 sources) Seborrheic keratosis; Translations: [Other seborrheic keratosis] 02-11-2025 Episodic Otitis media and related conditions (7 sources) Dysfunction of eustachian tube; Translations: [Unspecified [...] ORGN] Onset: 2 Episodic Residual codes; unclassified (4 sources) Postmenopausal state; Translations: [Asymptomatic menopausal state] 01-16-2025 Episodic Skin and subcutaneous tissue infections (2 sources) Cellulitis; Translations: [Cellulitis, unspecified] 03-12-2025 Episodic Thyroid disorders (20 sources) Hyperthyroidism; Translations: [Hypothyroidism] Onset: 2 12-24-2018 Chronic Thyroid disorders (7 sources) Disorder of thyroid gland; Translations: [Disorder of thyroid, unspecified] 01-10-2024 Episodic Unclassified (16 sources) Asymptomatic microscopic hematuria 10-07-2020 Unclassified (19 sources) Patient encounter status 05-12-2022 Unclassified (1 source) New Patient Onset: 5 Past or Other Problems Problem Classification Problem Date Documented Da te Episodic/Chronic Other connective tissue disease (6 sources) Muscle pain; Translations: [Myalgia and myositis, unspecified] Onset: 04-06-2004 01-26-2024 Episodic Results Test Name Value Interpretation Reference Range Facility Ambulatory Visit Summaryon 0 03-29-2025 Ambulatory Visit Summary Ambulatory Visit Summary SUZANNA TARAH [place] :1950 Visit Date:03/29/2025 Ambulatory Visit Instructions Your Diagnosis Mixed incontinence Other urethral stricture, female Asymptomatic microscopic hematuria Your Care Team Attending Physician - IAN Siddiqi APRN, Sarah Dutta Primary Care Physician - JACQUELINE HERNANDEZ CNP This Is Your Medications List Contact prescribing [...] Colonoscopy, Tonsillectomy, Tubal ligation. Discharge Vitals Temperature (Tympanic) 37 ???C Heart Rate (Peripheral) 60 Respiratory Rate 16 Blood Pressure 112/94 Height 165 cm Height 65 in Weight 105.5 kg Weight 232.587 lb BMI 38.75 What to do next Scheduled Follow-Up Appointments Tuesday 11:30 AM EDT Where: [facility] 2024 9:15 AM EDT Where: [facility] You Need to Schedule the Following Appointments Follow Up with MADELIN CORDOBA, JEN Callahan When: Comments: botox Where: [address] [address]- Medications What How Much When Instructions Unchanged albuterol (Proventil HFA 90 mcg/ [...] 1 Tablets By Mouth Every 4 hours Contact prescribing physician if questions or concerns [...] you are, the higher the risk. ??? Obesit (more content not included)... Normal [facility] Urology Office/Clinic Noteon 03-29-2025 Urology Office/Clinic Note Urology Office/Clinic Note Chief Complaint cannot hold urine HPI Staff 74 yr old female would like to discuss repeat Botox due to unable to hold urine. History of Present Illness I have reviewed and verified the staff HPI to be accurate for this encounter. Portions of this record may have been created with voice recognition artificial intelligence software, specifically Zoom, TeraFirrma and or Actifi. Substitutions may have occurred due to the inherent limitations of voice recognition and artificial intelligence software. Review of Systems PHQ Score Initial Depression Screen Score: 0 SCORE Physical Exam Vitals & Measurements T: 37 ???C(Tympanic) HR: 60(Peripheral) RR: 16 BP: 112/94 HT: 65 in HT: 165 cm WT: 105.5 kg WT: 232.587 lb BMI: 38.75 General: Well developed, well nourished, in no acute distress. Assessment/Plan GPC pt 1. Mixed incontinence (N39.46: Mixed incontinence) S/p Botox 100 units 10/23/20 S/p Botox 200 units 05/28/21, 01/05/23, 04/09/24 BBS 26 (1) - no control of bladder feels last botox started wearing off several mos ago and now can't control her urine at all Going through several briefs in a day. PVR 0, emptying well Will schedule Botox. The procedural risks, benefits, details, [...] has been obtained. Will order Local anesthesia. -Schedule Botox 200u Ordered: [id number] Measure Post Void residual urine and/or bladder capacity by US- non-imaging Urnls Dip Stick Auto w/o Microscopy POC 49852 2. Other urethral stricture, female (N35.82: Other urethral stricture, female) S/p Cysto/UD 07/07/2022. Urethra normal during most recent cysto (Botox) on 04/09/24 denies worsening stream sxs, emptying well -cont to monitor Ordered: [id number] Measure Post Void residual urine and/or bladder capacity by US- non-imaging Urnls Dip Stick Auto w/o Microscopy POC 93203 3. Asymptomatic microscopic hematuria (R31.21: Asymptomatic microscopic hematuria) s/p cysto/botox 04/09/24 - no mention of B.T. UA today w/ trace blood, denies any gross hematuria -cont to monitor Ordered: [id number] Measure Post Void residual urine and/or bladder capacity by US- non-imaging Urnls Dip Stick Auto w/o Microscopy POC 32124 Follow-up With When Contact Information MADELIN CORDOBA, Antonio Alonzo, URL [address] [address]- Additional Instructions: botox Patient Education Urinary Incontinence Overactive Bladder, Adult Hematuria, Adult Problem List/Past Medical History Ongoing Asthma Asymptomatic [...] lifetime) Tobacco Use:. Never Smokeless Tobacco Use:., 03/29/2025 Family History Primary malignant neoplasm of female breast: Grandparent. Primary malignant neoplasm of female genital organ: Mother. Immunizations Vaccine Date Status Comments influenza virus vaccine, inactivated 03/24/2023 Recorded SARS-CoV-2 (COVID-19) [id number] 03/24/2023 Recorded SARS-CoV-2 (COVID-19) mRN (more content not included)... Normal [facility] Comment on above: Result Comment: Elec tronically Signed By: IAN Siddiqi APRN, [place] X\.br\Date and Time Signed: 03/29/25 14:24 EDT Basophils Auto (Bld) [#/Vol] Ordered By: Jacqueline Hernandez on 03-11-2025 Basophils (Bld) [#/Vol] 0.0 10 3/uL 0.0-0.1 [facility] Basophils/100 WBC Auto (Bld) Ordered By: Jacqueline Hernandez on 03-11-2025 Basophils/100 WBC (Bld) 0.5 % 0.2-2.0 [facility] Cholesterol in LDL Calc [Mas s/Vol]Ordered By: Jacqueline Hernandez on 03-11-2025 Cholesterol in LDL [Mass/Vol] 63.6 mg/dL [facility] Comment on above: <100 mg/dl [id number] 0-129 mg/dl NEAR OR ABOVE [id number] mg/dl BORDERLINE [id number] mg/dl HIGH>190 mg/dl VERY HIGH Cholesterol in VLDL Calc [Ma ss/Vol]Ordered By: Jacqueline Hernandez on 03-11-2025 Cholesterol in VLDL [Mass/Vol] 22.4 mg/dL [facility] Eosinophils/100 WBC Auto (Bl d)Ordered By: Jacqueline Hernandez on 03-11-2025 Eosinophils/100 WBC (Bld) 3.7 % 0.9-7.0 [facility] Erythrocyte distribution wid th Auto (RBC) [Ratio]Ordered By: Jacqueline Hernandez on 03-11-2025 Erythrocyte distribution width (RBC) [Ratio] 13.2 % 11.0-15.0 [facility] Globulin Calc (S) [Mass/Vol] Ordered By: Jacqueline Hernandez on 03-11-2025 Globulin (S) [Mass/Vol] 4.0 g/dL [facility] Glomerular filtration rate ( GFR) estimation in non- AmericanOrdered By: Jacqueline Hernandez on 03-11-2025 GFR/1.73 sq M.predicted among non-blacks MDRD (S/P/Bld) [Vol rate/Area] mL/min/{1.73_m2} >=60 mL/min/1.7 3m 2 [facility] Hematocrit Auto (Bld) [Volum e fraction]Ordered By: Jacqueline Hernandez on 03-11-2025 Hematocrit (Bld) [Volume fraction] 46.6 % 36.0-48.0 [facility] Hemoglobin [Mass/volume] in BloodOrdered By: Jacqueline Hernandez on 03-11-2025 Hemoglobin (Bld) [Mass/Vol] 15.1 g/dL 12.0-16.0 [facility] Laboratory - Chemistry and C hemistry - challengeOrdered By: Jacqueline Hernandez on 03-11-2025 Albumin [Mass/Vol] 3.1 g/dL Low 3.4-5.0 [facility] ALP [Catalytic activity/Vol] 111 U/L 46-116 [facility] ALT [Catalytic activity/Vol] 27 U/L 14-59 [facility] AST [Catalytic activity/Vol] 21 U/L 15-37 [facility] Bilirubin [Mass/Vol] 0.5 mg/dL 0.2-1.0 [facility] Calcium [Mass/Vol] 8.9 mg/dL 8.5-10.1 [facility] Chloride [Moles/Vol] 108 mmol/L High 98-107 [facility] Cholesterol [Mass/Vol] 141 mg/dL <=200 [facility] Cholesterol in HDL [Mass/Vol] 55 mg/dL 40-60 [facility] Comment on above: > or =60 mg/dl - LOW CARDIOVASCULAR RISK<40 mg/dl - HIGH CARDIOVASCULAR RISK CO2 [Moles/Vol] 29.5 mmol/L 21.0-32.0 [facility] Creatinine [Mass/Vol] 0.81 mg/dL 0.55-1.02 [facility] GFR/1.73 sq M.predicted MDRD (S/P/Bld) [Vol rate/Area] mL/min/{1.73_m2} >=60 mL/min/1.7 3m 2 [facility] Glucose [Mass/Vol] 81 mg/dL 74-106 [facility] Potassium [Moles/Vol] 4.3 mmol/L 3.5-5.1 [facility] Protein [Mass/Vol] 7.1 g/dL 6.4-8.2 [facility] Sodium [Moles/Vol] 141 mmol/L 136-145 [facility] Triglyceride [Mass/Vol] 112 mg/dL <=150 [facility] TSH Qn 1.750 m[IU]/L 0.358-3.74 0 [facility] Urea nitrogen [Mass/Vol] 12.0 mg/dL 7.0-18.0 [facility] Urea nitrogen/Creatinine [Mass ratio] 14.8 mg/mg [facility] Laboratory - Hematology and Cell countsOrdered By: Jacqueline Hernandez on 03-11-2025 Immature granulocytes/100 WBC (Bld) 0.5 % 0.0-0.5 [facility] [facility] [#/volume] correc patricio for nucleated erythrocytes in Blood by Automated counOrdered By: Jacqueline Hernandez on 03-11-2025 WBC corrected for nucl RBC Auto (Bld) [#/Vol] 7.9 10 3/uL 4.0-11.0 [facility] Lymphocytes Auto (Bld) [#/Vo l]Ordered By: Jacqueline Hernandez on 03-11-2025 Lymphocytes (Bld) [#/Vol] 2.5 10 3/uL 1.2-3.8 [facility] Lymphocytes/100 WBC Auto (Bl d)Ordered By: Jacqueline Hernandez on 03-11-2025 Lymphocytes/100 WBC (Bld) 31.5 % 20.5-60.0 [facility] MCH Auto (RBC) [Entitic mass ]Ordered By: Jacquelnie Hernandez on 03-11-2025 MCH (RBC) [Entitic mass] 29.0 pg 26.7-34.0 [facility] MCHC Auto (RBC) [Mass/Vol]Or dered By: Jacqueline Hernandez on 03-11-2025 MCHC (RBC) [Mass/Vol] 32.4 g/dL 29.9-35.2 [facility] MCV Auto (RBC) [Entitic vol] Ordered By: Jacqueline Hernandez on 03-11-2025 MCV (RBC) [Entitic vol] 89.4 fL 81.0-99.0 [facility] Monocytes Auto (Bld) [#/Vol] Ordered By: Jacqueline Hernandez on 03-11-2025 Monocytes (Bld) [#/Vol] 0.6 10 3/uL 0.3-0.8 [facility] Monocytes/100 WBC Auto (Bld) Ordered By: Jacqueline Hernandez on 03-11-2025 Monocytes/100 WBC (Bld) 7.8 % 1.7-12.0 [facility] Neutrophils Auto (Bld) [#/Vo l]Ordered By: Jacqueline Hernandez on 03-11-2025 Neutrophils (Bld) [#/Vol] 4.4 10 3/uL 1.4-6.5 [facility] Neutrophils/100 WBC Auto (Bl d)Ordered By: Jacqueline Hernandez on 03-11-2025 Neutrophils/100 WBC (Bld) 56.0 % 43.0-75.0 [facility] No Panel InformationOrdered By: Jacqueline Hernandez on 03-11-2025 Eosinophils # (Auto) 0.3 10 3/uL 0.0-0.7 [facility] Immature Granulocyte # (Auto) 0.04 10 3/uL High 0.00-0.03 [facility] Platelet mean volume Auto (B ld) [Entitic vol]Ordered By: Jacqueline Hernandez on 03-11-2025 Platelet mean volume (Bld) [Entitic vol] 10.0 fL 9.5-13.5 [facility] Platelets Auto (Bld) [#/Vol] Ordered By: Jacqueline Hernandez on 03-11-2025 Platelets (Bld) [#/Vol] 260 10 3/uL 150-450 [facility] RBC Auto (Bld) [#/Vol]Ordere d By: Jacqueline Hernandez on 03-11-2025 RBC (Bld) [#/Vol] 5.21 10 6/uL 4.20-5.40 [facility] Serum or plasma albumin/glob ulin mass ratioOrdered By: Jacqueline Hernandez on 03-11-2025 Albumin/Globulin [Mass ratio] 0.8 {ratio} [facility] Serum or plasma anion gap de terminationOrdered By: Jacqueline Hernandez on 03-11-2025 Anion gap [Moles/Vol] 7.8 mmol/L [facility] Serum or plasma total choles terol/high density lipoprotein (HDL) cholesterol mass ratOrdered By: Jacqueline Hernandez on 03-11-2025 Cholesterol.total/Chol esterol in HDL [Mass ratio] 2.6 {ratio} [facility] Comment on above: 3.3 - 4.4 LOW RISK4. 4 - 7.1 AVERAGE RISK7.1 - 11.0 MODERATE RISK>11.0 HIGH RISK No Panel Informationon 02-11 [facility] ANES POSTPROC EVALon 025 ANES POSTPROC EVAL HNO ID: [id number] Author: LUIS CARSON MD Service: ? Author Type: Anesthesiologist Type: Anesthesia Postprocedure Evaluation Filed: 01/10/2025 14:35 Note Text: POST ANESTHESIA EVALUATION NOTE : 1950 Procedure Summary Date: 01/10/25 Room / Location: Gastroenterology Anesthesia Start: 1301 Anesthesia Stop: 1338 Procedure: EGD - THERAPEUTIC, EUS, OR TUBE INTERVENTIONS Diagnosis: Eosinophilic esophagitis Esophageal lesion (Dysphagia) Scheduled Providers: Vicky Downing MD; Ranjana Arceo APRN.SUPERVISOR [employer]; Luis Carson MD Responsible Provider: Luis Carson [...] with this procedure. Documented by Ranjana Arceo APRN.SUPERVISOR [employer] 01/10/2025 1:41 PM EDT SIGNATURE: Lius Blandon MD PATIENT NAME: Tarah Briseno DATE: January 10, 2025 TIME: 2:35 PM CSN: [id number] [facility] ANES PRE-OPon 01-10-2025 ANES PRE-OP HNO ID: [id number] Author: LUIS CARSON MD Service: ? Author Type: Anesthesiologist Type: Anesthesia Preprocedure Evaluation Filed: 01/10/2025 12:13 Note Text: ANESTHESIOLOGY DAY OF SURGERY NOTE : 1950 Procedure Information Date/Time: 01/10/25 1300 Scheduled providers: Vicky Downing MD; Ranjana Arceo APRN.SUPERVISOR [employer]; Luis Carson MD Procedure: EGD - THERAPEUTIC, [...] and consent discussed: yes. Patient / Responsible Constitution Party agrees to proceed: yes Patient / [...] January 10, 2025 TIME: 12:12 PM CSN: [id number] [facility] EGD Study observation Quinton ram 01-10-2025 A31 Gastrointestinal Endoscopy Patient Name: Tarah Briseno Procedure Date: 01/10/2025 12:57 PM Date of : 1950 Admit Type: Outpatient Age: 74 Room: [address] Gender: Female Note Status: Finalized Attending MD: Vicky Downing MD, [id number] Procedure: Upper GI endoscopy Indications: Dysphagia Providers: [...] Return t (more content not included)... PROVATION [facility] Radiology Study observation (narrative) [facility] NURSING PROGon 01-10-2025 NURSING PROG HNO ID: [id number] Author: ARBEN DESOUZA RN Service: Nursing Author [...] Electronically Signed By: Arben Desouza RN [facility] NURSING PROG HNO ID: [id number] Author: GENEVIEVE JARA RN Service: ? Author [...] GENEVIEVE JARA RN In Department: GASTROENTEROLOGY [facility] Pathology biopsy report Ed (Tiss)on 01-10-2025 AP DISCLAIMER [facility] Comment on above: Order Comment: Speci men Type: TISSUE SPECIMEN Ordering Facility: [facility] Address: [address] [place] [address] Result Comment: Moriah Rodriguez (LDT) Disclaimer: Performance characteristics of immunohistochemical, immunofluorescent, and chromogenic in-situ hybridization tests have been determined by the performing laboratory within [facility]'s [facility] Path[facility] and Laboratory Medicine Department ([facility], [facility], [facility], [facility], [place], [facility], [facility], or [facility]) in a manner consistent with CLIA requirements. One or more of these tests may not have been cleared or approved by the FDA. [facility] is regulated under CLIA as qualified to perform high-complexity testing. These tests are used for clinical purposes. These should not be regarded as investigational or for research. Positive and negative controls stain appropriately. Performed By: #### 6 6121-5 #### [facility] CLIA [id number] [address] [place] [address] [place] [facility] CLIA [id number] [address] [place] [address] [place] CASE REPORT [facility] Comment on above: Order Comment: Speci men Type: TISSUE SPECIMEN Ordering Facility: [facility] Address: [address] [place] [address] Result Comment: Surg [facility] Pathology Report Case: [id number] Authorizing Provider: Vicky Downing MD Collected: 01/10/2025 01:24 PM Ordering Location: Gastroenterology Received: 01/10/2025 04:46 PM Pathologist: Leonid Garcia MD Specimens: A) - Esophagus, Biopsy, r/o polynoma B) - Esophagus, Biopsy, r/o EOE C) - Esophagus, Biopsy, r/o EOE Performed By: #### 6 6121-5 #### [facility] CLIA [id number] [address] [place] [address] [place] [facility] CLIA [id number] [address] [place] [address] [place] FINAL DIAGNOSIS [facility] Comment on above: Order Comment: Speci men Type: TISSUE SPECIMEN Ordering Facility: [facility] Address: [address] [place] [address] Result Comment: Osiel. Melly ritter, polyp, biopsy: - Inflamed squamous mucosa with [...] EDT Performed By: #### 6 6121-5 #### [facility] CLIA [id number] [address] [place] [address] [place] [facility] CLIA [id number] [address] [place] [address] [place] FINAL PERFORMING LAB Normal [facility] Comment on above: Order Comment: Speci men Type: TISSUE SPECIMEN Ordering Facility: [facility] Address: [address] [place] [address] Result Comment: Diag nostic interpretation performed at: [facility], [address] [place] [address] CLIA# [id number] Mac Developer: Rogelio Levine MD Performed By: #### 6 6121-5 #### [facility] CLIA [id number] [address] [place] [address] [place] [facility] CLIA [id number] [address] [place] [address] OF [place] GROSS DESCRIPTION Normal [facility] Comment on above: Order Comment: Speci men Type: TISSUE SPECIMEN Ordering Facility: [facility] Address: [address] [place] [address] Result Comment: A. E sophagus, Biopsy Received [...] 2025 8:35 PM Gross examination performed at [facility], [address] [place] [address] Performed By: #### 6 6121-5 #### [facility] CLIA [id number] [address] [place] [id number] [place] [facility] CLIA [id number] [address] [place] [address] [place] Upper GI endoscopyon 01-10- 025 Upper GI endoscopy A31 Gastrointestinal Endoscopy Patient Name: Tarah Briseno Procedure Date: 01/10/2025 12:57 PM Date of : 1950 Admit Type: Outpatient Age: 74 Room: [address] Gender: Female Note Status: Finalized Attending MD: Vicky Downing MD, [id number] Procedure: Upper GI endoscopy Indications: Dysphagia Providers: [...] referring provider. Procedure Code(s): --- Professional --- 70543, 22, Esophagogastroduodenoscopy, flexible, transoral; with removal of tumor(s), polyp(s), or other lesion(s) by snare technique 33276, Esophagogastroduodenoscopy, flexible, transoral; with insertion of guide wire followed by passage of dilator(s) through esophagus over guide wire 81362, 59,51, Esophagogastroduodenoscopy, flexible, transoral; with biopsy, single or multiple Diagnosis Code(s): --- Professional --- K22.89, Other specified disease of esophagus K44.9, Diaphragmatic hernia without obstruction or gangrene R13.10, Dysphagia, unspecified CPT copyright 2020 [employer]. All rights reserved. The codes documented in this report are preliminary and upon craps dealer review may be revised to baljinder (more content not included)... [facility] NURSING PROGon 01-03-2025 NURSING PROG HNO ID: [id number] Author: AWA LEMON RN Service: ? Author [...] have family/friend present for procedure transport home:Patient/patient customer counter representative was told that if they do [...] area. Any barriers to Patient learning: Patient/Patient Delicatessen Clerk responded appropriately on phone. Type of instruction given: Verbal by telephone contact. KATIA Al [facility] No Panel Informationon 10-18 [facility] 10-03-2024 L ------- Specimen: [id number] Received: 10/03/24 Status: THEODORA Love Num: [id number] Spec Type: Surgical Subm Dr: Alicia Wilks MD Tissues: A Esophagus Biopsy (ESOPH LESION) B Esophagus Biopsy (ESOPH BX) Procedures: HE/4, Gross/Micro L4/2 Age/ Patient Sex Location Account Attending Physician Tarah Briseno 74/F [id number] Alicia Wilks MD SPEC NUM: [id number] RECD: 10/03/24 STATUS: THEODORA LOVE NUM: [id number] CRYSTAL: 10/03/[address] [facility] [address]: Alicia Wilks MD ENTERED: 10/03/[address] [facility] [address]: JULIO TYPE: Surgical DEPT: S ENTERED BY: [id number] RECV BY: [id number] ORDERED: HE/4, Gross/Micro L4/2 ORDERED: HE/4, Gross/Micro [...] submitted in a single cassette. (1, ns, [id number] A) LEONELA Specimen: [id number] Received: 10/03/24 Status: THEODORA Love Num: [id number] Spec Type: Surgical Subm Dr: Alicia Wilks MD Tissues: A Esophagus Biopsy (ESOPH LESION) B Esophagus Biopsy (ESOPH BX) Procedures: HE/4, Gross/Micro L4/2 Patient: Tarah Briseno [id number] (Continued) Specimen: [id number] Received: 10/03/24 (Continued) Gross Description (Continued) Signed (signature on file) Phillip Sorensen Jr., MD 10/04/24 1142 Specimen: [id number] Received: 10/03/24 Status: THEODORA Love Num: [id number] Spec Type: Surgical Subm Dr: Alicia Wilks MD Tissues: A Esophagus Biopsy (ESOPH LESION) B Esophagus Biopsy (ESOPH BX) Procedures: HE/Pippa, Gross/Micro L4/2 Patient: Tarah Briseno [place] [id number] (Continued) Specimen: Received: 10/03/24 (Continued) Gross Description (Continued) Part B is received in formalin labeled with the patients name, date of , and esophagea l BX are 3 pale rodas, focally erythematous, feathery, 0.2, 0.2 and 0.3 cm in greatest dimension tissue bits. The specimen is entirely submitted in a single cassette. (1, ns, [id number] B) LEONELA Specimen: [id number] Received: 10/03/249922 Status: THEODORA Love Num: [id number] Spec Type: Surgical Subm Dr: Alicia Wilks MD Tissues: A Esophagus Biopsy (ESOPH LESION) B Esophagus Biopsy (ESOPH BX) Procedures: [place] PETERSON/José L4/2 Patient: Tarah Briseno [id number] (Continued) Signed (signature on file) Phillip Sorensen Jr., MD 10/04/24 4360 [place] [facility] No Panel Informationon 09-12 [facility] No Panel Informationon 08-13 [facility] Urology Office/Clinic Noteon 06-12-2024 Urology Office/Clinic Note Urology Office/Clinic Note Chief Complaint 2 mth f/u [facility] Staff 73yr old female pt here for [...] E&M of Est. Patient Low 20-29 Min 50902 2. Other urethral stricture, female (N35.82: Other urethral stricture, female) S/p Cysto/UD 07/07/2022. Urethra normal during recent cysto (Botox) on 04/09/24. Ordered: E&M of Est. Patient Low 20-29 Min 50898 3. Asymptomatic microscopic hematuria (R31.21: Asymptomatic microscopic hematuria) IO UA shows small hgb, trace leuks. No UTI sx. No b.t. on recent scope. No gross hematuria. Ordered: E&M of Est. Patient Low 20-29 Min 00763 Urnls Dip Stick Auto w/o Microscopy POC 52551 Follow-up With When Contact Information [facility] Additional Instructions: Only if [...] virus vaccine, inactivated 03/24/2023 Recorded SARS-CoV-2 (COVID-19) mRNAMUL.ORD![id number] 03/24/2023 Recorded SARS-CoV-2 (COVID-19) mRNAMUL.ORD![id number] 07/19/2022 Recorded influenza virus vaccine, inactivated 03/30/2022 [...] vaccine, i (more content not included)... Normal [facility] Comment on above: Result Comment: Elec tronically Signed By: JACQUELINE HUFF PA-C\.br\Date and Time Signed: 06/12/24 11:49 EST Inpatient Patient Summaryon 04-09-2024 Inpatient Patient Summary Inpatient Patient Summary [place] [address] Clinical Summary Person Information Name: TARAH BRISENO Age: 73 Years : 1950 Sex: Female PCP: JACQUELINE HERNANDEZ CNP Marital Status: Race: White Ethnicity: Non- or Language: Malay Visit Id: Visit Reason: URINARY INCONTINENCE Speciality: Acuity: Enc Type: Outpatient Med Service: Surgery Arrival: 04/09/2024 12:44:33 Discharge: Dispo Type: Address: [address] [place] [id number] Provider Notes: Diagnosis: Problems Active Greater trochanteric [...] MD Follow up: With: Address: When: [address], [address], [place] [phone] Business (1) Comments: Please make a follow up appointment with one of our nurse practitioners or physician assistants within two months with a bladder scan to assess your bladder emptying. Have a great day! Patient Education Information: EU - Cystoscopy with Botox Injection Discharge Instructions (Custom) [facility] Main OR Intraoperative Recor don 04-09-2024 Main OR Intraoperative Record Main OR Intraoperative Record IntraOp Document Type [facility] Summary Primary Physician: Antonio AMBRIZ MD Finalized Date/Time: 04/09/24 13:46:51 Pt. Name: TARAH BRISENO [place] Cotton/Sex: 1950 Female Med Rec #: [id number] Physician: Antonio AMBRIZ MD Financial #: [id number] Pt. Type: O Room/Bed: / Admit/Disch: 04/09/24 12:44:33 - Institution: Case Times [facility]O Entry 1 Patient Times In Room 04/09/24 13:26:00 Out Room 04/09/24 13:40:00 Procedure Times Start 04/09/24 13:28:00 Stop 04/09/24 13:35:00 Anesthesia Times Last Modified By: Jess SALINAS, Mendy Alonzo 04/09/24 13:35:38 General Comments: BOTOX LOT#: [id number], EXP DATE: 05/2026 BOTOX LOT# [id number], EXP. DATE: 05/2026 -Billy BOCANEGRA RN Case Attendance FT[facility]O Entry 1 Entry 2 Entry 3 Case Attendee MADELIN CORDOBA, Antonio Bocanegra RN, Jozef Hudson Role Performed Surgeon - Primary Pipe Organ Mechanic - Primary Scrub - Primary Time In [...] INCONTINENCE Outcomes Met? Yes Last Modified By: Mendy Bocanegra RN 04/09/24 13:41:42 Post-Care Text: The patient is [...] By: Mendy Bocanegra RN 04/09/24 13:46 Normal [facility] Main OR Preoperative Recordo n 04-09-2024 Main OR Preoperative Record Main OR Preoperative Record Holding Area Document Type [facility] Summary Primary Physician: Antonio AMBRIZ MD Finalized Date/Time: 04/09/24 13:07:47 Pt. Name: TARAH BRISENO/Sex: 1950 Female Med Rec #: [id number] Physician: Antonio AMBRIZ MD Financial #: [id number] Pt. Type: O Room/Bed: / Admit/Disch: 04/09/24 [...] No Pain Comment: 0/10 Skin Integrity Intact, Portal, Warm, & Dry Vitals - EU Blood Pressure 118/79 Pulse 63 bpm Respirations 16 br/min SPO2 97 % Additional Other (See Comment) Specimens Comment Urine specimen negative Specimens Collected RN Reviewed Yes Last Modified By: Georgina Palacios RN 04/09/24 13:07:42 Finalized By: Georgina Palacios RN Document Signatures Signed By: Georgina Palacios RN 04/09/24 13:07 Normal [facility] Operative Reporton Operative Report Operative Report Patient: TARAH BRISENO Age: 73 years Sex: Female : 1950 Associated Diagnoses: None Author: Antonio AMBRIZ MD Procedure Operative Information Details: Date/ Time: 04/09/2024 13:38:00. Pre-Op Dx: Mixed stress and urge urinary incontinence (ZRX72-BY N39.46, Billing Diagnosis, Medical), Overactive bladder (DLX13-US N32.81, Billing Diagnosis, Medical). Post-Op Dx: Same. [...] two months to check PVR> . Normal [facility] Comment on above: Result Comment: Elec tronically Signed By: Antonio AMBRIZ MD\.br\Date and Time Signed: 04/09/24 13:40 EDT Outpatient Surgery Discharge Instructionon 04-09-2024 Outpatient Surgery Discharge Instruction Outpatient Surgery Discharge Instruction [address] [address] Patient Discharge Instructions PERSON INFORMATION Name: TARAH BRISENO Date of : 1950 Current Date: 04/09/2024 13:37:27 PHYSICIANS Admitting Physician: Antonio AMBRIZ MD Comment: Discharge Diagnosis: TAARH BRISENO has been given the following list of follow-up instructions, prescriptions, and patient education materials: IF UNABLE TO CONTACT YOUR PHYSICIAN AND YOU FEEL IT IS AN EMERGENCY, GO TO THE NEAREST EMERGENCY ROOM OR CALL 911 Follow up: With: Address: When: Antonio AMBRIZ [address] [place] [address], [address], [place] [phone] [facility] (1) Comments: Please make a follow up [...] Date You may receive a survey from Oriaan Pena asking you to rate your care experience. Your feedback is important and will help us understand what we do well and how we can improve the quality of care we provide to you, your loved ones and our community. It?s an honor to serve you. Thank you for choosing [facility] Normal [facility] CHEMISTRYOrdered By: SYSTEM SYSTEM on 05-10-2023 Cholesterol [Mass/Vol] 151 mg/dL Normal 120 - 200 mg/dL [facility] Remisol Cholesterol in HDL [Mass/Vol] 58 mg/dL [...] : DR RAUL LEWIS . Admission #: [id number] Family : Order #: [id number] CLICK HERE TO VIEW EXAM RADIOLOGY REPORT [...] cervical cancer at age 47. LOCATION: [facility] BREAST COMPOSITION: Scattered areas fibroglandular density. [...] MD on 05/12/2022 at 11:25 Normal [facility] CBC AUTO DIFFon 03-31-2022 BASO # 0.0 103/ul Normal 0.0-0.[address] [facility] Comment on above: Performed By: #### C BC #### [facility] [address] [place] [address] Dr. Altaf Hogue Basophils/100 WBC (Bld) 0.4 % Normal 0.2-2.[address] [facility] Comment on above: Performed By: #### C BC #### [facility] [address] [place] [address] Dr. Altaf Hogue EO # 0.3 103/ul Normal 0.0-0.[address] [facility] Comment on above: Performed By: #### C BC #### [facility] [address] [place] [address] Dr. Altaf Hogue Eosinophils/100 WBC (Bld) 4.4 % Normal 0.9-7.[address] [facility] Comment on above: Performed By: #### C BC #### [facility] [address] [place] [address] Dr. Altaf Hogue Erythrocyte distribution width (RBC) [Ratio] 13.5 % Normal 11.0-15.[address] [facility] Comment on above: Performed By: #### C BC #### [facility] [address] [place] [address] Dr. Altaf Hogue Hematocrit (Bld) [Volume fraction] 44.4 % Normal 36.0-48.[address] [facility] Comment on above: Performed By: #### C BC #### [facility] [address] [place] [address] Dr. Altaf Hogue Hemoglobin (Bld) [Mass/Vol] 14.3 g/dL Normal 12.0-16.0 [facility] Comment on above: Performed By: #### C BC #### [facility] [address] [place] [address] Dr. Altaf Hogue IG # 0.02 10e3/ul Normal 0.00-0.[address] [facility] Comment on above: Performed By: #### C BC #### [facility] [address] [place] [address] Dr. Altaf Hogue IG % 0.3 % Normal 0.0-0.[address] [facility] Comment on above: Performed By: #### C BC #### [facility] [address] [place] [address] Dr. Altaf Hogue LYMPH # 2.2 103/ul Normal 1.2-3.[address] [facility] Comment on above: Performed By: #### C BC #### [facility] [address] [place] [address] Dr. Altaf Hogue Lymphocytes/100 WBC (Bld) 28.8 % Normal 20.5-60.[address] [facility] Comment on above: Performed By: #### C BC #### [facility] [address] [place] [address] Dr. Altaf Hogue MANUAL DIFF REQ NO Normal [facility] Comment on above: Performed By: #### C BC #### [facility] [address] [place] [address] Dr. Altaf Hogue MCH (RBC) [Entitic mass] 29.0 pg Normal 26.7-34.[address] [facility] Comment on above: Performed By: #### C BC #### [facility] [address] [place] [address] Dr. Altaf Hogue MCHC (RBC) [Mass/Vol] 32.2 g/dL Normal 29.9-35.[address] [facility] Comment on above: Performed By: #### C BC #### [facility] [address] [place] [address] Dr. Altaf Hogue MCV (RBC) [Entitic vol] 90.1 fL Normal 81.0-99.[address] [facility] Comment on above: Performed By: #### C BC #### [facility] [address] [place] [address] Dr. Altaf Hogue MONO # 0.6 103/ul Normal 0.3-0.[address] [facility] Comment on above: Performed By: #### C BC #### [facility] [address] [place] [address] Dr. Altaf Hogue Monocytes/100 WBC (Bld) 8.5 % Normal 1.7-12.[address] [facility] Comment on above: Performed By: #### C BC #### [facility] [address] [place] [address] Dr. Altaf Hogue NEUT # 4.3 103/ul Normal 1.4-6.[address] [facility] Comment on above: Performed By: #### C BC #### [facility] [address] [place] [address] Dr. Altaf Hogue Neutrophils/100 WBC (Bld) 57.6 % Normal 43.0-75.[address] [facility] Comment on above: Performed By: #### C BC #### [facility] [address] [place] [address] Dr. Altaf Hogue Platelet mean volume (Bld) [Entitic vol] 9.7 fL Normal 9.5-13.[address] [facility] Comment on above: Performed By: #### C BC #### [facility] Laboratory [address] [place] [address] Dr. Altaf Hogue PLT 286 103/ul Normal 150-450 [facility] Comment on above: Performed By: #### C BC #### [facility] [address] [place] [address] Dr. Altaf Hogue RBC 4.93 106/ul Normal 4.20-5.[address] [facility] Comment on above: Performed By: #### C BC #### [facility] [address] [place] [address] Dr. Altaf Hogue WBC 7.5 103/ul Normal 4.0-11.[address] [facility] Comment on above: Performed By: #### C BC #### [facility] [address] [place] [address] Dr. Altaf Hogue FREE T3on 03-31-2022 FREE T3 2.39 pg/mlL Normal 2.18-3.[address] [facility] Comment on above: Performed By: #### T SH, FT3, LIPID, CMP #### [facility] [address] [place] [address] Dr. Altaf Hogue FREE T4on 03-31-2022 Free T4 [Mass/Vol] 1.04 ng/dL Normal 0.76-1.[address] [facility] Comment on above: Performed By: #### F T4 #### [facility] [address] [place] [address] Dr. Altaf Hogue LIPID PROFILEon 03-31-2022 CHOL-HDL RATIO NORM SEE BELOW Normal [facility] Comment on above: Result Comment: 3.3 - 4.4 LOW RISK 4.4 - 7.1 AVERAGE RISK 7.1 - 11.0 MODERATE RISK >11.0 HIGH RISK Performed By: #### T SH, FT3, LIPID, CMP #### [facility] [address] [place] [address] Dr. Altaf Hogue Cholesterol [Mass/Vol] 142 mg/dL Normal <=200 [facility] Comment on above: Performed By: #### T SH, FT3, LIPID, CMP #### [facility] [address] [place] [address] Dr. Altaf Hogue Cholesterol in HDL [Mass/Vol] 59 mg/dL Normal 40-[address] [facility] Comment on above: Performed By: #### T SH, FT3, LIPID, CMP #### [facility] [address] [place] [address] Dr. Altaf Hogue Cholesterol in LDL [Mass/Vol] 64.2 mg/dL Normal [facility] Comment on above: Performed By: #### T SH, FT3, LIPID, CMP #### [facility] [address] [place] [address] Dr. Altaf Hogue Cholesterol.total/Chol esterol in HDL [Mass ratio] 2.4 {ratio} Normal [facility] Comment on above: Performed By: #### T SH, FT3, LIPID, CMP #### [facility] [address] [place] [address] Dr. Altaf Hogue HDL NORMAL > or = 60 mg/dl - LO W CARDIOVASCULAR RISK <40 mg/dl - HIGH CARDIOVASCULAR RISK Normal [facility] Comment on above: Performed By: #### T SH, FT3, LIPID, CMP #### [facility] [address] [place] [address] Dr. Altaf Hogue LDL CALC NORMAL SEE BELOW Normal [facility] Comment on above: Result Comment: <100 mg/dl OPTIMAL 100 - 129 mg/dl NEAR OR ABOVE OPTIMAL 130 - 159 mg/dl BORDERLINE HIGH 160 - 189 mg/dl HIGH >190 mg/dl VERY HIGH Performed By: #### T SH, FT3, LIPID, CMP #### [facility] [address] [place] [address] Dr. Altaf Hogue Triglyceride [Mass/Vol] 94 mg/dL Normal <=[address] [facility] Comment on above: Performed By: #### T SH, FT3, LIPID, CMP #### [facility] [address] [address] [address] Altaf Hogue VLDL CALC 18.8 mg/dL Normal [facility] Comment on above: Performed By: #### T SH, FT3, LIPID, CMP #### [facility] [address] [place] [address] Dr. Altaf Hogue PROF 14(COMP METB)on 022 Albumin [Mass/Vol] 3.3 g/dL Critically low 3.4-5.0 [facility] Comment on above: Performed By: #### T SH, FT3, LIPID, CMP #### [facility] [address] [place] [address] Dr. Altaf Hogue Albumin/Globulin [Mass ratio] 0.9 {ratio} Normal [facility] Comment on above: Performed By: #### T SH, FT3, LIPID, CMP #### [facility] [address] [address] [address] Altaf Hogue ALP [Catalytic activity/Vol] 104 U/L Normal 46-[address] [facility] Comment on above: Performed By: #### T SH, FT3, LIPID, CMP #### [facility] [address] [place] [address] Dr. Altaf Hogue ALT [Catalytic activity/Vol] 24 U/L Normal 14-[address] [facility] Comment on above: Performed By: #### T SH, FT3, LIPID, CMP #### [facility] [address] [place] [address] Dr. Altaf Hogue Anion gap [Moles/Vol] 11.2 mmol/L Normal Th [facility] Comment on above: Performed By: #### T SH, FT3, LIPID, CMP #### [facility] [address] [place] [address] Dr. Altaf Hogue AST [Catalytic activity/Vol] 18 U/L Normal 15-[address] [facility] Comment on above: Performed By: #### T SH, FT3, LIPID, CMP #### [facility] [address] [place] [address] Dr. Altaf Hogue Bilirubin [Mass/Vol] 0.4 mg/dL Normal 0.2-1.[address] [facility] Comment on above: Performed By: #### T SH, FT3, LIPID, CMP #### [facility] [address] [place] [address] Dr. Altaf Hogue Calcium [Mass/Vol] 8.9 mg/dL Normal 8.5-10.[address] [facility] Comment on above: Performed By: #### T SH, FT3, LIPID, CMP #### [facility] [address] [place] [address] Dr. Altaf Hogue Chloride [Moles/Vol] 107 mmol/L Normal 98-107 [facility] Comment on above: Performed By: #### T SH, FT3, LIPID, CMP #### [facility] [address] [place] [address] Dr. Altaf Hogue CO2 [Moles/Vol] 26.2 mmol/L Normal 21.0-32.0 [facility] Comment on above: Performed By: #### T SH, FT3, LIPID, CMP #### [facility] [address] [place] [address] Dr. Altaf Hogue Creatinine [Mass/Vol] 0.85 mg/dL Normal 0.55-1.[address] [facility] Comment on above: Performed By: #### T SH, FT3, LIPID, CMP #### [facility] [address] [place] [address] Dr. Altaf Hogue EGFR-AF ESTONIAN >60 Normal >=60 [facility] Comment on above: Performed By: #### T SH, FT3, LIPID, CMP #### [facility] [address] [place] [address] Dr. Altaf Hogue EGFR-NON AF ESTONIAN >60 Normal >=60 [facility] Comment on above: Performed By: #### T SH, FT3, LIPID, CMP #### [facility] [address] [place] [address] Dr. Altaf Hogue Globulin (S) [Mass/Vol] 3.8 g/dL Normal [facility] Comment on above: Performed By: #### T SH, FT3, LIPID, CMP #### [facility] [address] [place] [address] Dr. Altaf Hogue Glucose [Mass/Vol] 88 mg/dL Normal 74-[address] [facility] Comment on above: Performed By: #### T SH, FT3, LIPID, CMP #### [facility] [address] [place] [address] Dr. Altaf Hogue Potassium [Moles/Vol] 4.4 mmol/L Normal 3.5-5.1 [facility] Comment on above: Performed By: #### T SH, FT3, LIPID, CMP #### [facility] [address] [place] [address] Dr. Altaf Hogue Protein [Mass/Vol] 7.1 g/dL Normal 6.4-8.2 [facility] Comment on above: Performed By: #### T SH, FT3, LIPID, CMP #### [facility] [address] [place] [address] Dr. Altaf Hogue Sodium [Moles/Vol] 140 mmol/L Normal 136-145 [facility] Comment on above: Performed By: #### T SH, FT3, LIPID, CMP #### [facility] [address] [place] [address] Dr. Altaf Hogue Urea nitrogen [Mass/Vol] 15.0 mg/dL Normal 7.0-18.[address] [facility] Comment on above: Performed By: #### T SH, FT3, LIPID, CMP #### [facility] [address] [place] [address] Dr. Altaf Hogue Urea nitrogen/Creatinine [Mass ratio] 17.6 mg/mg Normal [facility] Comment on above: Performed By: #### T SH, FT3, LIPID, CMP #### [facility] [address] [address] [address] Altaf Hogue TSHon 03-31-2022 TSH 1.010 uIU/mL Normal 0.358-3.74 0 [facility] Comment on above: Performed By: #### T SH, FT3, LIPID, CMP #### [facility] [address] ABD/PELVIS WO CONon 06-25 CT ABD/PELVIS WO CON EXAMINATION: CT ABD /PELVIS WO CON HISTORY: Microscopic hematuria , incontinence, [...] by: DANIELLE YAP Date: 2021-06-25 13:[address] [facility] Vital Signs Date Time Vital Sign Value Performing Clinician Jasmin link 03-12-2025 09:06-0400 Body height 163.83 cm Jacqueline Hernandez APRN Work Phone: [facility] 03-12-2025 09:06-0400 Body mass index (BMI) [Ratio] 39.4 kg/m2 Jacqueline Hernandez APRN Work Phone: [facility] 03-12-2025 09:06-0400 Body temperature 96.6 [degF] Jacqueline Hernandez APRN Work Phone: [facility] 03-12-2025 09:06-0400 Body weight 105.91 kg Jacqueline Hernandez CLINICAL COURIER Work Phone: [facility] 03-12-2025 09:06-0400 Diastolic blood pressure 82 mm[Hg] Jacqueline Hernandez APRN Work Phone: [facility] 03-12-2025 09:06-0400 Heart rate 67 /min Jacqueline Hernandez APRN Work Phone: [facility] 03-12-2025 09:06-0400 SaO2% (BldA) [Mass fraction] 97 % Jacqueline Hernandez APRN Work Phone: [facility] 03-12-2025 09:06-0400 Systolic blood pressure 126 mm[Hg] Jacqueline Hernandez APRN Work Phone: [facility] 01-28-2025 11:09-0400 Diastolic blood pressure 75 mm[Hg] Jacqueline Hernandez APRN Work Phone: [facility] 01-28-2025 11:09-0400 Heart rate 61 /min Jacqueline Hernandez APRN Work Phone: [facility] 01-28-2025 11:09-0400 Systolic blood pressure 118 mm[Hg] Jacqueline Gonzaleschantalvickijose CLINICAL COURIER Work Phone: [facility] 01-16-2025 11:05-0400 Body height 163.83 cm Jacqueline Hernandez CLINICAL COURIER Work Phone: [facility] 01-16-2025 11:05-0400 Body mass index (BMI) [Ratio] 39.4 kg/m2 Jacqueline Christiejose CLINICAL COURIER Work Phone: [facility] 01-16-2025 11:05-0400 Body temperature 98 [degF] Jacqueline Gonzaleschantalvickijose CLINICAL COURIER Work Phone: [facility] 01-16-2025 11:05-0400 Body weight 105.68 kg Jacqueline Hernandez CLINICAL COURIER Work Phone: [facility] 01-16-2025 11:05-0400 Diastolic blood pressure 76 mm[Hg] Jacqueline Christiejose GRIJALVAN Work Phone: [facility] 01-16-2025 11:05-0400 Heart rate 80 /min Jacqueline Gonzalesdo GUTHRIE Work Phone: [facility] 01-16-2025 11:05-0400 SaO2% (BldA) [Mass fraction] 97 % Jacqueline Gonzalesdo GRIJALVAN Work Phone: [facility] 01-16-2025 11:05-0400 Systolic blood pressure 134 mm[Hg] Jacqueline Mary GUTHRIE Work Phone: [facility] 01-10-2025 14:00-0400 Diastolic blood pressure 66 mm[Hg] Vicky Downing MD Work Phone: [facility] 01-10-2025 14:00-0400 Heart rate 53 /min Vicky Downing MD Work Phone: [facility] 01-10-2025 14:00-0400 Respiratory rate 18 /min Vicky Downing MD Work Phone: [facility] 01-10-2025 14:00-0400 SaO2% (BldA) [Mass fraction] 98 % Vicky Downing MD Work Phone: [facility] 01-10-2025 14:00-0400 Systolic blood pressure 150 mm[Hg] Vicky Downing MD Work Phone: [facility] 01-10-2025 12:10-0400 Body height 162.6 cm Vicky Downing MD Work Phone: [facility] 01-10-2025 12:10-0400 Body mass index (BMI) [Ratio] 39.48 kg/m2 Vicky Downing MD Work Phone: [facility] 01-10-2025 12:10-0400 Body temperature 97.3 [degF] Vicky Downing MD Work Phone: [facility] 01-10-2025 12:10-0400 Body weight 104.33 kg Vicky Downing MD Work Phone: [facility] 10-18-2024 10:47-0400 Body height 163.83 cm Jacqueline Hernandez APRN Work Phone: [facility] 10-18-2024 10:47-0400 Body mass index (BMI) [Ratio] 38.5 kg/m2 Jacqueline Hernandez APRN Work Phone: [facility] 10-18-2024 10:47-0400 Body weight 103.5 kg Jacqueline Hernandez APRN Work Phone: [facility] 10-18-2024 10:47-0400 Diastolic blood pressure 70 mm[Hg] Jacqueline Hernandez APRN Work Phone: [facility] 10-18-2024 10:47-0400 Systolic blood pressure 125 mm[Hg] Jacqueline Hernandez APRN Work Phone: [facility] 10-03-2024 12:10-0400 Diastolic blood pressure 65 mm[Hg] Jacqueline Gonzalesdo CLINICAL COURIER Work Phone: [facility] 10-03-2024 12:10-0400 Heart rate 53 /min Jacqueline Christiejose CLINICAL COURIER Work Phone: [facility] 10-03-2024 12:10-0400 Respiratory rate 16 /min Jacqueline Christiejose CLINICAL COURIER Work Phone: [facility] 10-03-2024 12:10-0400 SaO2% (BldA) [Mass fraction] 96 % Jacqueline Christiejose CLINICAL COURIER Work Phone: [facility] 10-03-2024 12:10-0400 Systolic blood pressure 122 mm[Hg] Jacqueline Garibaybenjamin CLINICAL COURIER Work Phone: [facility] 10-03-2024 10:49-0400 Body height 163.83 cm Jacqueline Christiejose CLINICAL COURIER Work Phone: [facility] 10-03-2024 10:49-0400 Body weight 104.32 kg Jacqueline Hernandez CLINICAL COURIER Work Phone: [facility] 09-06-2024 10:39-0500 Body height 165.1 cm [facility] 09-06-2024 10:39-0500 Body mass index (BMI) [Ratio] 39.4 kg/m2 [facility] 09-06-2024 10:39-0500 Body weight 107.6 kg [facility] 08-07-2024 11:35-0500 Body height 165.1 cm [facility] 08-07-2024 11:35-0500 Body mass index (BMI) [Ratio] 39.3 kg/m2 [facility] 08-07-2024 11:35-0500 Body temperature 98.1 [degF] [facility] 08-07-2024 11:35-0500 Body weight 107.16 kg [facility] 08-07-2024 11:35-0500 Diastolic blood pressure 72 mm[Hg] [facility] 08-07-2024 11:35-0500 Heart rate 76 /min [facility] 08-07-2024 11:35-0500 SaO2% (BldA) [Mass fraction] 98 % [facility] 08-07-2024 11:35-0500 Systolic blood pressure 126 mm[Hg] [facility] 06-12-2024 15:08-0500 Body height 165.1 cm [facility] 06-12-2024 15:08-0500 Body mass index (BMI) [Ratio] 39.8 kg/m2 [facility] 06-12-2024 15:08-0500 Body temperature 97.3 [degF] [facility] 06-12-2024 15:08-0500 Body weight 108.52 kg [facility] 06-12-2024 15:08-0500 Diastolic blood pressure 84 mm[Hg] [facility] 06-12-2024 15:08-0500 Heart rate 67 /min [facility] 06-12-2024 15:08-0500 SaO2% (BldA) [Mass fraction] 97 % [facility] 06-12-2024 15:08-0500 Systolic blood pressure 132 mm[Hg] [facility] 06-12-2024 10:58-0500 Blood Pressure Location JACQUELINE HUFF [facility] 06-12-2024 10:58-0500 Diastolic blood pressure 86 mm[Hg] JACQUELINE HUFF [facility] 06-12-2024 10:58-0500 Heart rate 78 /min JACQUELINE HUFF [facility] 06-12-2024 10:58-0500 Systolic blood pressure 132 mm[Hg] JACQUELINE HUFF [facility] 02-17-2024 11:32-0400 Diastolic blood pressure 68 mm[Hg] [facility] 02-17-2024 11:32-0400 Systolic blood pressure 116 mm[Hg] [facility] 02-17-2024 11:26-0400 Body height 165.1 cm [facility] 02-17-2024 11:26-0400 Body mass index (BMI) [Ratio] 39.1 kg/m2 [facility] 02-17-2024 [id number] Body weight 106.59 kg [facility] 02-17-2024 11:26-0400 Heart rate 72 /min [facility] 01-10-2024 14:04-0400 Body height 165.1 cm [facility] 01-10-2024 14:04-0400 Body mass index (BMI) [Ratio] 39.4 kg/m2 [facility] 01-10-2024 14:04-0400 Body weight 107.5 kg [facility] 01-10-2024 14:04-0400 Diastolic blood pressure 78 mm[Hg] [facility] 01-10-2024 14:04-0400 Heart rate 72 /min [facility] 01-10-2024 14:04-0400 SaO2% (BldA) [Mass fraction] 98 % [facility] 01-10-2024 14:04-0400 Systolic blood pressure 118 mm[Hg] [facility] 07-27-2023 10:34-0500 Blood Pressure Location Antonio AMBRIZ [facility] 07-27-2023 10:34-0500 Diastolic blood pressure 67 mm[Hg] Antonio AMBRIZ [facility] 07-27-2023 10:34-0500 Heart rate 62 /min Antonio AMBRIZ [facility] 07-27-2023 10:34-0500 Respiratory rate 16 /min Antonio AMBRIZ [facility] 07-27-2023 10:34-0500 Systolic blood pressure 106 mm[Hg] Antonio AMBRIZ [facility] 08-10-2022 12:37-0500 Blood Pressure Location Oh RICE [facility] 08-10-2022 12:37-0500 Diastolic blood pressure 85 mm[Hg] Oh RICE [facility] 08-10-2022 12:37-0500 Heart rate 84 /min Oh RICE [facility] 08-10-2022 12:37-0500 Respiratory rate 16 /min Oh RICE [facility] 08-10-2022 12:37-0500 Systolic blood pressure 128 mm[Hg] Oh RICE [facility] 05-12-2022 13:16-0400 Blood Pressure Location Leonid GERBER [facility] [place] 05-12-2022 13:16-0400 Diastolic blood pressure 82 mm[Hg] Leonid MARSHALLL [facility] [place] 05-12-2022 13:16-0400 Heart rate 80 /min Leonid MARSHALLL [facility] [place] 05-12-2022 13:16-0400 Respiratory rate 16 /min Leonid NILL [facility] [place] 05-12-2022 13:16-0400 Systolic blood pressure 122 mm[Hg] Leonid MARSHALLL [facility] [place] 01-19-2022 09:43-0400 Blood Pressure Location Vida Desouza Jr. [facility] 01-19-2022 09:43-0400 Diastolic blood pressure 85 mm[Hg] Vida Desouza Jr. [facility] 01-19-2022 09:43-0400 Heart rate 82 /min Vida Desouza Jr. [facility] 01-19-2022 09:43-0400 Systolic blood pressure 134 mm[Hg] Vida Desouza Jr. [facility] 11-12-2021 11:37-0400 Blood Pressure Location Vida Desouza Jr. [facility] 11-12-2021 11:37-0400 Diastolic blood pressure 81 mm[Hg] Vidaedin Desouza Jr. [facility] 11-12-2021 11:37-0400 Heart rate 78 /min Vida Desouza Jr. [facility] 11-12-2021 11:37-0400 Respiratory rate 16 /min Vida Desouza Jr. [facility] 11-12-2021 11:37-0400 Systolic blood pressure 132 mm[Hg] Vida Desouza . [facility] Encounters Encounter Date Encounter Type Care Provider Facility Start: 03-29-2025 End: 03-29-2025 ambulatory [facility] Facility:[facility] Start: 03-29-2025 End: 03-29-2025 Patient encounter procedure Sarah Siddiqi [facility] Start: 03-12-2025 End: 03-12-2025 ambulatory Jacqueline Hernandez APRN Work Phone: [facility] Work Phone: Start: 03-12-2025 End: 03-12-2025 Patient encounter procedure Jacqueline Hernandez APRN [facility] Work Phone: Start: 03-11-2025 Non-patient / Non-visit Jacqueline Hernandez APRN [facility] Work Phone: Start: 03-04-2025 Non-patient / Non-visit [facility] Work Phone: Start: 02-11-2025 End: 02-11-2025 Bamboo flowsheet Yancy Carr PA Work Phone: [facility] Start: 02-11-2025 End: 02-11-2025 Bamboo flowsheet Yancy Carr PA Work Phone: [facility] Start: 02-11-2025 End: 02-11-2025 ambulatory YANCY CARR Not Available Start: 02-11-2025 End: 02-11-2025 Office outpatient visit 15 minutes Yancy Carr PA Work Phone: [facility] Comment on above: Melanocytic nevus of trunk (Primary Dx); Seborrheic keratosis; Inflamed seborrheic keratosis Start: 01-28-2025 End: 01-28-2025 ambulatory Jacqueline Hernandez APRN Work Phone: [facility] Work Phone: Start: 01-28-2025 End: 01-28-2025 Patient encounter procedure [place] APRN -[facility] Work Phone: Start: 01-17-2025 End: 01-17-2025 Follow-up encounter Jaclyn Stewart CLINICAL COURIER.[employer]DEPENDENT [employer]UC[employer] Work Phone: Gastroenterology Comment on above: Results Start: 01-16-2025 End: 01-16-2025 ambulatory Jacqueline Hernandez APRN Work Phone: [facility] Work Phone: Start: 01-16-2025 End: 01-16-2025 Patient encounter procedure Jacqueline Hernandez CLINICAL COURIER [employer] -[facility] Work Phone: Start: 01-10-2025 ambulatory RAUL Smith ity:[facility] Start: 01-10-2025 End: 01-10-2025 Subsequent hospital visit by physician Vicky Downing MD Work Phone: Gastroenterology Comment on above: Eosinophilic esophag itis [K20.0] Start: 01-03-2025 End: 01-03-2025 ambulatory Awa Lemon RNmachine repairman Start: 12-06-2024 End: 12-06-2024 ambulatory SAMUEL SHORE Not Available Start: 10-18-2024 End: 10-18-2024 Bamboo flowsheet Fatuma A Felter CLINICAL COURIER-[employer]UCATION Work Phone: [facility] Start: 10-18-2024 End: 10-18-2024 Bamboo flowsheet Fatuma A Felter CLINICAL COURIER-[employer]UCATION Work Phone: [facility] Start: 10-18-2024 End: 10-18-2024 ambulatory FATUMA A FELTER Not Available Start: 10-18-2024 End: 10-18-2024 Patient encounter procedure Fatuma A Felter CLINICAL COURIER-[employer]ATION Work Phone: [facility] Comment on above: Inflamed seborrheic keratosis Start: 10-18-2024 End: 10-18-2024 ambulatory Jacqueline Hernandez APRN Work Phone: [facility] Work Phone: Start: 10-18-2024 End: 10-18-2024 Patient encounter procedure Jacqueline Mary CLINICAL COURIER Work Phone: [facility] Physician [facility] Work Phone: Start: 10-16-2024 End: 10-16-2024 ambulatory RAUL LEWIS Facility:[facility] Start: 10-16-2024 End: 10-16-2024 Patient encounter procedure Jaclyn Stewart CLINICAL COURIER.IN[employer]ENDENT [employer]UCATION Work Phone: Gastroenterology Comment on above: Eosinophilic esophag itis (Primary Dx); Esophageal lesion Start: 10-15-2024 End: 10-16-2024 Chart abstracting Blanca Desouza RNmachine repairman Start: 10-03-2024 Non-patient / Non-visit Jacqueline Mary CLINICAL COURIER Work Phone: [facility] Physician [facility] Work Phone: Start: 10-03-2024 End: 10-03-2024 Admission to same day surgery center Jacqueline Mary GRIJALVAN Work Phone: [facility] Work Phone: Start: 10-03-2024 End: 10-03-2024 ambulatory Jacqueline Gonzalesdo CLINICAL COURIER Work Phone: [facility] Work Phone: Start: 09-12-2024 End: 09-12-2024 Bamboo flowsheet Fatuma A Felter CLINICAL COURIER-IN[employer]ENDENT [employer]UCATION Work Phone: [facility] Start: 09-12-2024 End: 09-12-2024 Bamboo flowsheet Fatuma A Felter CLINICAL COURIER-IN[employer]END[employer]UCATION Work Phone: [facility] Start: 09-12-2024 End: 09-12-2024 ambulatory FATUMA A FELTER Not Available Start: 09-12-2024 End: 09-12-2024 Patient encounter procedure Fatuma A Felter CLINICAL COURIER-[employer]ATION Work Phone: [facility] Comment on above: Inflamed seborrheic keratosis Start: 09-06-2024 End: 09-06-2024 ambulatory [facility] Work Phone: Start: 09-06-2024 End: 09-06-2024 Patient encounter procedure [facility] Physician [facility] Work Phone: Start: 2024 End: 2024 Bamboo flowsheet Fatuma A Felter CLINICAL COURIER-INDEPENDENT AGENT MUSIC EDUCATION Work Phone: [facility] Start: 2024 End: 2024 Bamboo flowsheet Fatuma A Felter CLINICAL COURIER-INDEPENDENT AGENT MUSIC EDUCATION Work Phone: [facility] Start: 2024 End: 2024 Patient encounter procedure Fatuma A Felter CLINICAL COURIER-INDEPENDENT AGENT MUSIC EDUCATION Work Phone: [facility] Comment on above: Inflamed seborrheic keratosis Start: 2024 End: 2024 ambulatory FATUMA A FELTER Not Available Start: 08-07-2024 End: 08-07-2024 ambulatory [facility] Work Phone: Start: 08-07-2024 End: 08-07-2024 Patient encounter procedure [facility] Physician [facility] Work Phone: Start: 06-12-2024 End: 06-12-2024 Patient encounter procedure [facility] Physician [facility] Work Phone: Start: 06-12-2024 End: 06-12-2024 ambulatory JACQUELINE HUFF Facility:[facility] Start: 06-12-2024 End: 06-12-2024 Patient encounter procedure JACQUELINE HUFF [facility] Start: 04-09-2024 End: 04-09-2024 ambulatory Antonio AMBRIZ Facility[facility] Start: 04-09-2024 End: 04-09-2024 Patient encounter procedure Antonio AMBRIZ [facility] Start: 04-02-2024 End: 04-02-2024 ambulatory Antonio P MADELIN Facility: [facility] Start: 04-02-2024 End: 04-02-2024 Patient encounter procedure Antonio Clinton AMBRIZ [facility] Start: 02-17-2024 End: 02-17-2024 ambulatory [facility] Work Phone: Start: 02-17-2024 End: 02-17-2024 Patient encounter procedure [facility] Physician [facility] Work Phone: Start: 02-15-2024 End: 02-15-2024 Patient encounter procedure Antonio Clinton AMBRIZ [facility] Start: 01-10-2024 End: 01-10-2024 ambulatory [facility] Work Phone: Start: 01-10-2024 End: 01-10-2024 Patient encounter procedure [facility] Work Phone: Start: 07-27-2023 End: 07-27-2023 Patient encounter procedure Antonio Clinton AMBRIZ [facility] Start: 05-10-2023 End: 05-10-2023 Lab Drop off Colby Escobar [facility] Start: 01-11-2023 End: 01-11-2023 Patient encounter procedure Oh GOSS [facility] Start: 01-05-2023 End: 01-05-2023 Patient encounter procedure Oh GOSS [facility] Start: 12-31-2022 End: 12-31-2022 Lab Drop off Oh GOSS [facility] Start: 08-10-2022 End: 08-10-2022 Patient encounter procedure Oh GOSS [facility] Start: 05-12-2022 End: 05-12-2022 Patient encounter procedure Leonid GERBER General Surgery Kesha/Said [facility] Start: 05-12-2022 End: 05-13-[address] RAUL LEWIS Facility:[facility] Start: 03-31-2022 End: 04-01-[address] RAUL LEWIS Facility:[facility] Start: 02-09-2022 End: 03-19-2022 Pre-admission assessment Vida Desouza Jr. [facility] Start: 01-20-2022 End: 02-05-2022 Pre-admission assessment Vida Desouza Jr. [facility] Start: 01-19-2022 End: 01-19-2022 Patient encounter procedure Vida Desouza Jr. [facility] Start: 11-12-2021 End: 11-12-2021 Patient encounter procedure Vida Desouza Jr. [facility] Start: 06-25-2021 End: 06-26-[address] RAUL LEWIS Facility:[facility] Procedures Date Procedure Procedure Detail Performing Clinician Start: 02-11-2025 CRYOTHERAPY SKIN LESION Yancy GUNTER Work Phone: Start: 01-10-2025 Esophagoscp rig transoral hypopharynx crv hebert Stewart CLINICAL COURIER.INDEPENDENT AGENT MUSIC EDUCATION Work Phone: Start: 10-18-2024 CRYOTHERAPY SKIN LESION Fatuma Phipps CLINICAL COURIER-INDEPENDENT AGENT MUSIC EDUCATION Work Phone: Start: 10-03-2024 Esophagogastroduodenoscopy Jacqueline Gonzalesdo CLINICAL COURIER Work Phone: Start: 09-12-2024 CRYOTHERAPY SKIN LESION Fatuma Phipps CLINICAL COURIER-INDEPENDENT AGENT MUSIC EDUCATION Work Phone: Start: 2024 CRYOTHERAPY SKIN LESION Fatuma Phipps CLINICAL COURIER-INDEPENDENT AGENT MUSIC EDUCATION Work Phone: Start: 10-23-2020 Injection of therapeutic [...] Colonoscopy Vida Adair Ligation of fallopian tube D wolf Desouza Jr. Tonsillectomy Vida tejada Plan of Treatment Date Care Activity Detail Author Start: 2027 RSV Vaccine (1 - 1-dose 75+ series) RSV Vaccine (1 - 1-dose 75+ series) [facility] Start: 06-26-2027 Screening for malignant neoplasm of colon [facility] Start: 02-10-2026 End: 02-10-2026 Patient encounter procedure 02/10/2026 10:00 AM EDT Office Visit [facility] [address] [place] [address] Yancy Carr PA [address] [place] [address] [facility] Start: 04-19-2025 End: 01-17-2026 EGD - THERAPEUTIC, EUS, OR TUBE INTERVENTIONS EGD - THERAPEUTIC, EUS, OR TUBE INTERVENTIONS Endoscopy Routine Eosinophilic esophagitis Expected: 04/19/2025, Expires: 01/17/2026 [facility] Work Phone: Comment on above: Expected: 04/19/2025, Expires: Start: 03-18-2025 Influenza vaccination [facility] Start: 03-12-2025 Patient referral [facility] Work Phone: Start: 02-11-2025 End: 02-11-2025 Patient encounter procedure 02/11/2025 10:00 AM EDT Office Visit [facility] [address] [place] [address] Yancy Carr PA [address] [place], [place] [id number] [facility] Start: 01-10-2025 End: 01-10-2025 Patient encounter procedure 01/10/2025 1:00 PM EDT Appointment Gastroenterology [address] [place] [address] Vicky Downing MD [address] [place] [address] Eosinophilic esophagitis [K20.0] Gastroenterology Comment on above: Eosinophilic esophagitis [K20.0] Start: 12-11-2024 End: 10-16-2025 EGD - THERAPEUTIC, EUS, OR TUBE INTERVENTIONS EGD - THERAPEUTIC, EUS, OR TUBE INTERVENTIONS Endoscopy Routine Eosinophilic esophagitis Esophageal lesion Expected: 12/11/2024 (Approximate), Expires: 10/16/2025 [facility] Work Phone: Comment on above: Expected: 12/11/2024 (Approximate), Expi res: 10/16/2025 Start: 11-19-2024 End: 11-19-2024 Patient encounter procedure 11/19/2024 1:55 PM EDT Office Visit [facility] [address] [place] [phone] Fatuma Phipps, CLINICAL COURIER-INDEPENDENT AGENT MUSIC EDUCATION [address] [place] [address] [facility] Start: 10-18-2024 End: 10-18-2024 Patient encounter procedure 10/18/2024 10:25 AM EDT Office Visit [facility] [address] [place] [address] Fatuma Phipps, CLINICAL COURIER-INDEPENDENT AGENT MUSIC EDUCATION [address] [place] [address] [facility] Start: 10-03-2024 [facility] Start: 09-12-2024 End: 09-12-2024 Patient encounter procedure 09/12/2024 1:10 PM EST Office Visit [facility] [address] [place] [phone] Fatuma Phipps, CLINICAL COURIER-INDEPENDENT AGENT MUSIC EDUCATION [address] [place] [address] [facility] Start: 2024 End: 2024 Patient encounter procedure 2024 9:40 AM EST Office Visit [facility] [address] [place] [phone] Fatuma Phipps APRN-INDEPENDENT AGENT MUSIC EDUCATION [address] [place] [address] Arrived [facility] Comment on above: Arrived Start: 08-07-2024 Patient referral [facility] Work Phone: Start: 07-18-2024 Advance Directive Discussion Advance Directive Discussion [facility] Start: 07-18-2024 Medicare Advantage Annual Wellness Visit Medicare Advantage Annual Wellness Visit [facility] Start: 03-18-2024 Covid-19 Vaccine ( season) Covid-19 Vaccine ( season) [facility] Start: 03-18-2024 Influenza vaccination Influenza Vaccine (#1) [facility] Start: 2017 Pneumococcal Vaccine: 65+ Years (2 of 2 - PCV) Pneumococcal Vaccine: 65+ Years (2 of 2 - PCV) [facility] Start: 2017 Screening for osteoporosis Bone Density Screening [facility] Start: 04-28-2015 Pneumococcal Vaccine: 50+ (2 of 2 - PCV) Pneumococcal Vaccine: 50+ (2 of 2 - PCV) [facility] Start: 04-28-2015 Pneumococcal Vaccine: 65+ Years (2 of 2 - PCV) Pneumococcal Vaccine: 65+ Years (2 of 2 - PCV) [facility] Start: 04-06-2007 Diabetes Screening Diabetes Screening [facility] Start: 2002 Shingrix Vaccine (1 of 2) Shingrix Vaccine (1 of 2) [facility] Start: 1997 Lipid panel Lipid Screening [facility] Start: 1997 Screening for malignant neoplasm of colon [facility] Start: 1992 Screening for malignant neoplasm of breast [facility] Start: 1971 Urine microalbumin profile DTaP,Tdap,Td Vaccine (1 - Tdap) [facility] Start: 1970 Anxiety Screening Anxiety Screening [facility] Start: 1970 Depression Screening Depression Screening [facility] Start: 1970 Hepatitis C screening Hepatitis C Screening [facility] Start: 1952 Screening for malignant neoplasm of colon [facility] Comprehensive metabolic 2000 panel - Serum or Plasma [facility] DXA Skeletal system.axial Views for bone density [facility] MG Breast - bilatera l Screening [facility] Patient Education Hiatal hernia Esophageal stricture Know your Meds [facility] Work Phone: Patient referral [facility] Work Phone: Tissue Pathology biopsy report [facility] Work Phone: Comment on above: Release Upon Ordering for 1 Occurrences starting 01/10/2025, 1 completed [facility] Immunizations Immunization Date Immunization Notes Care Provider Fa teresita 03-24-2023 influenza virus vacc ine, unspecified formulation Colby Shawn [facility] 03-24-2023 SARS-CoV-2 (COVID-19 ) [id number].[id number] Colby Shawn [facility] 07-19-2022 SARS-CoV-2 (COVID-19 ) [id number].[id number] Oh GOSS [facility] 03-30-2022 influenza virus vacc ine, unspecified formulation Oh GOSS [facility] 05-19-2021 SARS-CoV-2 (COVID-19 ) mRNA-1273 vaccine Oh GOSS [facility] 04-24-2021 influenza virus vacc ine, unspecified formulation [facility] Comment on above: Result Comment: 2022: 67 10-04-2020 SARS-CoV-2 (COVID-19 ) mRNA-1273 vaccine Vida Desouza Jr. [facility] 09-06-2020 SARS-CoV-2 (COVID-19 ) [id number] vaccine Vida Desouza Jr. [facility] 04-17-2020 influenza virus vacc ine, unspecified formulation Vida Desouza Jr. [facility] 06-13-2019 influenza virus vacc ine, unspecified formulation Oh GOSS [facility] 05-18-2018 influenza virus vacc ine, unspecified formulation Oh GOSS [facility] 06-08-2015 influenza virus vacc ine, unspecified formulation Oh GOSS [facility] 04-28-2014 influenza virus vacc ine, unspecified formulation Oh GOSS [facility] 04-28-2014 pneumococcal polysaccharide vaccine, 23 valent Oh Authy [facility] 05-13-2013 influenza virus vacc ine, unspecified formulation Oh GOSS [facility] Payers Date Payer Category Payer Medicare [id number] 2024 Self-pay 2024 Medicare (Managed Care) [id number]. [id number] 2024 Private Health Insurance [id number] 1957 Medicare [id number] 1950 Unknown [id number] 2.16.84 [id number] 1952 Unknown [id number] 2.16.84 [id number] 1952 Unknown [id number] 2.16.84 [id number] 1952 Unknown [id number] 1952 Unknown [id number] [id number] 1952 Unknown [id number] [id number] 1952 Unknown [id number] [id number] 1952 Unknown [id number] [id number] 1952 Unknown [id number] [id number] 1952 Unknown [id number] [id number] 1952 Unknown [id number] [id number] 1952 Unknown [id number] [id number] Medicare Medicare [id number] Unknown [employer] [id number] Unknown [id number] Social History Date Type Detail Facility Start: 11-12-2021 End: 03-29-2025 Tobacco smoking status Never smoked tobacco (finding) [facility] Start: 02-10-2024 End: 02-11-2025 Sex Assigned At Female [facility] Tobacco smoking status Never [facility] Start: 1950 Sex Assigned At Female F [facility] Start: 03-15-2017 End: 08-07-2024 Sex Female (finding) [facility] Start: 12-17-2022 End: 10-16-2024 Tobacco use and exposure Smokeless tobacco non-user [facility] Start: 02-10-2024 End: 02-11-2025 History of Social function [facility] Start: 1950 Sex assigned at Not on file N [facility] Tobacco smoking stat [facility] Tobacco smoking consumption unknown [facility] Start: 10-16-2024 End: 01-10-2025 Alcoholic beverage intake Lifetime non-drinker (finding) [facility] Sexual Orientation [facility] Goals Date Patient Goal Desired Activity /State Functional Status Date Assessment Result Facility 06-12-2024 Functional Status N/A [facility] 04-09-2024 Functional Status N/A [facility] 02-15-2024 Functional Status N/A [facility] 07-27-2023 Functional Status N/A [facility] 01-11-2023 Functional Status N/A [facility] 12-23-2022 Functional Status N/A [facility] 08-10-2022 Functional Status N/A [facility] 05-12-2022 Functional Status N/A [facility] 01-19-2022 Functional Status N/A [facility] Clinical Notes 11-12-2021 to 03-29-2025 LYRIC Whitley - 02/11/2025 10:00 AM EDTTelephone Encounter - Jaclyn Stewart APRN.GERMAINE - 01/17/2025 9:51 AM EDTTelephone Encounter - Jaclyn Stewart APRN.INDEPENDENT AGENT MUSIC EDUCATION - 01/17/2025 9:51 AM EDT Note Date & Type Note Facility 03-29-2025 Hospital Discharg e instructions Patient Education 03/29/2025 14:24:15 Urinary Incontinence Urinary Incontinence Urinary incontinence refers [...] (electrical nerve stimulation). ?For women, using a manager medical to prevent urine leaks. This [...] right after experiencing incontinence. General instructions Take zqzj-tid-hukrmah and prescription medicines only as told by [...] important. Where to find more information National [place] of Diabetes and Digestive and Kidney Diseases: www.niddk.nih.gov [place] [employer]: www.urologyhealth.org Contact a health care [...] provider. Document Revised: 02/06/2021 Document Reviewed: 02/06/2021 Mural.ly Patient Education 2023 PubliAtis. 03/29/2025 14:24:14 Overactive Bladder, Adult Overactive Bladder, Adult Overactive [...] your health care provider. General instructions Take iboy-cyi-osikknt and prescription medicines only as told by [...] provider. Document Revised: 03/23/2021 Document Reviewed: 03/23/2021 Mural.ly Patient Education 2023 PubliAtis. 03/29/2025 14:24:13 Hematuria, Adult Hematuria, Adult Hematuria is blood in the urine. Blood may be visible in the urine, or it may be identified with a test. This condition can be caused by infections of the bladder, urethra, kidney, or prostate. Other possible causes include: Kidney stones. Cancer of the urinary tract. Too much calcium in the urine. Conditions that are passed from parent to child (inherited conditions). Exercise that requires a lot of energy. Infections can usually be treated with medicine, and a kidney stone usually will pass through your urine. If neither of these is the cause of your hematuria, more tests may be needed to identify the cause of your symptoms. It is very important to tell your health care provider about any blood in your urine, even if it is painless or the blood stops without treatment. Blood in the urine, when it happens and then stops and then happens again, can be a symptom of a very serious condition, including cancer. There is no pain in the initial stages of many urinary cancers. Follow these instructions at home: Medicines Take utdn-fsh-rtekjjs and prescription medicines only as told by your health care provider. If you were prescribed an antibiotic medicine, take it as told by your health care provider. Do not stop taking the antibiotic even if you start to feel better. Eating and drinking Drink enough fluid to keep your urine pale yellow. It is recommended that you drink 3 4 quarts (2.8 3.8 L) a day. If you have been diagnosed with an infection, drinking cranberry juice in addition to large amounts of water is recommended. Avoid caffeine, tea, and carbonated beverages. These tend to irritate the bladder. Avoid alcohol because it may irritate the prostate (in males). General instructions If you have been diagnosed with a kidney stone, follow your health care provider's instructions about straining your urine to catch the stone. Empty your bladder often. Avoid holding urine for long periods of time. If you are female: ?After a bowel movement, wipe from front to back and use each piece of toilet paper only once. ?Empty your bladder before and after sex. Pay attention to any changes in your symptoms. Tell your health care provider about any changes or any new symptoms. It is up to you to get the results of any tests. Ask your health care provider, or the department that is doing the test, when your results will be ready. Keep all follow-up visits. This is important. Contact a health care provider if: You develop back pain. You have a fever or chills. You have nausea or vomiting. Your symptoms do not improve after 3 days. Your symptoms get worse. Get help right away if: You develop severe vomiting and are unable to take medicine without vomiting. You develop severe pain in your back or abdomen even though you are taking medicine. You pass a large amount of blood in your urine. You pass blood clots in your urine. You feel very weak or like you might faint. You faint. Summary Hematuria is blood in the urine. It has many possible causes. It is very important that you tell your health care provider about any blood in your urine, even if it is painless or the blood stops without treatment. Take ssqt-tjc-pmvvxuj and prescription medicines only as told by your health care provider. Drink enough fluid to keep your urine pale yellow. This information is not intended to replace advice given to you by your health care provider. Make sure you discuss any questions you have with your health care provider. Document Revised: 03/04/2021 Document Reviewed: 03/04/2021 Elsevier Patient Education 2023 PubliAtis. Follow Up Care 03/28/2025 09:33:06 With:MADELIN CORDOBA, Antonio lAonzo, URL Address: [address] [address]- When: Unknown Comments:botox [facility] 03-29-2025 Note Patient Education Obstetrics and Gynecology Overactive Bladder, Adult [...] be caused by other factors, such as: ??? Medical conditions: ? Urinary tract infection. ? Infection of nearby tissues. ? Prostate enlargement. ? Bladder stones, inflammation, or tumors. ? Diabetes. ? Muscle or nerve weakness, especially from these conditions: ? A spinal cord injury. ? Stroke. ? Multiple sclerosis. ? Parkinson's disease. ??? Other causes: ? Surgery on the uterus or urethra. ? Drinking too much caffeine or alcohol. ? Certain medicines, especially those that eliminate extra fluid in the body (diuretics). ? Constipation. What increases the risk? You may be at greater risk for overactive bladder if you: ??? Are an older adult. ??? Smoke. ??? Are going through menopause. ??? Have prostate problems. ??? Have a neurological disease, such as stroke, dementia, Parkinson's disease, or multiple sclerosis (MS). ??? Eat or drink alcohol, spicy food, caffeine, and other things that irritate the bladder. ??? Are overweight or obese. What are the signs or symptoms? Symptoms of this condition include a sudden, strong urge to urinate. Other symptoms include: ??? Leaking urine. ??? Urinating 8 or more times a day. ??? Waking up to urinate 2 or more times overnight. How is this diagnosed? This condition may be diagnosed based on: ??? Your symptoms and medical history. ??? A physical exam. ??? Blood or urine tests to check for possible causes, such as infection. You may also need to see a health care provider who specializes in urinary tract problems. This is called a urologist. How is this treated? Treatment for overactive bladder depends on the cause of your condition and whether it is mild or severe. Treatment may include: ??? Bladder training, such as: ? Learning to control the urge to urinate by following a schedule to urinate at regular intervals. ? Doing Kegel exercises to strengthen the pelvic floor muscles that support your bladder. ??? Special devices, such as: ? Biofeedback. This [...] into the vagina and supports the bladder. ??? Medicines, such as: ? Antibiotics to treat bladder infection. ? Antispasmodics to stop the bladder from releasing urine at the wrong time. ? Tricyclic antidepressants to relax bladder muscles. ? Injections of botulinum toxin type A directly into the bladder tissue to relax bladder muscles. ??? Surgery, such as: ? A device may be implanted to help manage the nerve signals that control urination. ? An electrode may be implanted to stimulate electrical signals in the bladder. ? A procedure may be done to change the shape of the bladder. This is done only in very severe cases. Follow these instructions at home: Eating and drinking ??? Make diet or lifestyle changes recommended by [...] such as fried and sweet foods. Lifestyle ??? Lose weight if needed. ??? Do not use any products that contain nicotine or tobacco. These include cigarettes, chewing tobacco, and vaping devices, such as e-cigarettes. If you need help quitting, ask your health care provider. General instructions ??? Take dkgp-bzc-irmpeyg and prescription medicines only as told by your health care provider. ??? If you were prescribed an antibiotic medicine, take it as told by your health care provider. Do not stop taking the antibiotic even if you start to feel better. ??? Use any implants or pessary as told by your health care provider. ??? If needed, wear pads to absorb urine leakage. ??? Keep a log to track how much and when you drink, and whe (more content not included)... [facility] 02-11-2025 History of Presen t illness Narrative [...] limited to risks of scarring, darker or manufacturing sales representative pigmentary changes, recurrence, incomplete removal [...] Visit: 1 year documented in this encounter [facility] 01-17-2025 Telephone encounter Note Called patient to discuss esophageal bx results. Eosinophils continue to be elevated on twice daily pantoprazole. Pt does not typically eat breakfast. Educated on prior timing of PPI. Will stop pantoprazole and start omeprazole 40 mg twice daily. Educated on proper timing. Repeat EGD in 12 weeks, follow up appointment with me 1 week after EGD. Jaclyn Stewart APRN.CNP [facility] 01-17-2025 Miscellaneous Notes Called patient to discuss esophageal bx results. Eosinophils continue to be elevated on twice daily pantoprazole. Pt does not typically eat breakfast. Educated on prior timing of PPI. Will stop pantoprazole and start omeprazole 40 mg twice daily. Educated on proper timing. Repeat EGD in 12 weeks, follow up appointment with me 1 week after EGD. Jaclyn Stewart APRN.CNP documented in this encounter [facility] 01-16-2025 Evaluation note Diagnosis Onset Date Resolution Asthma acute January 16, 2025 11:01am BMI 39.0-39.9,adult acute January 16, 2025 11:01am Hyperlipemia acute January 16 11:01am Hypothyroid acute January 16 11:01am Post-menopausal acute January 16, 2025 11:01am Screening for breast cancer acute January 16, 2025 11:01am Screening for osteoporosis acute January 16, 2025 11:01am Encounter for subsequent annual wellness visit in Medicare patient noneactive January 16, 2025 11:01am Dysphagia acute January 28 11:05am GERD (gastroesophageal reflux disease) acute January 28, 2025 11:05am [facility] Work Phone: 1(146) 519-572407-02-2025 Evaluation note* Diagnosis Onset Date Resolution Status Admit Date Asthma acute January 16, 2025 11:01am BMI 39.0-39.9,adult acute January 16, 2025 11:01am Hyperlipemia acute January 16 11:01am Hypothyroid acute January 16 11:01am Post-menopausal acute January 16, 2025 11:01am Screening for breast cancer acute January 16, 2025 11:01am Screening for osteoporosis acute January 16, 2025 11:01am Encounter for subsequent annual wellness visit in Medicare patient noneactive January 16, 2025 11:01am Dysphagia acute January 28 11:05am GERD (gastroesophageal reflu x disease) acute January 28, 2025 11:05am BMI 39.0-39.9,adult acute Augus t 2024 9:06am Cellulitis acute March 12, 2 025 9:06am Hyperlipemia acute March 12, 2025 9:06am [facility] Work Phone: 1(741) 865-487906-26-2025 Nurse Note* Arben Desouza RN - 01/10/2025 [...] MATERIAL: Procedure Discharge Instructions REFERRAL (RECOMMENDATION): None [facility]06-26-2025 Nurse Note* Arben Desouza RN - [...] RN In Department: GASTROENTEROLOGY documented [facility] Nurse Note* Genevieve Jara RN - [...] By: GENEVIEVE JARA RN In Department: GASTROENTEROLOGY [facility]06-19-2025 Nurse Note* Awa Lemon RN - 01/03/2025 2:24 PM EDT GI Pre-Procedure Spoke with patient: Yes Confirmed date scheduled and patient report time: Yes Procedure Planned:Esophagogastroduodenoscopy(EGD) for control of bleeding,dilation(any means),imaging,tube placement Is the patient on blood thinners?no Procedure Instructions given to patient: Yes, and they verbalized their understanding of instructions given Patient instructed to have family/friend present for procedure transport home:Patient/patient customer counter representative was told that if they do [...] area. Any barriers to Patient learning: Patient/Patient Delicatessen Clerk responded appropriately on phone. Type of instruction given: Verbal by telephone contact. KATIA Al [facility]06-19-2025 Nurse Note* Awa Lemon RN - 01/03/2025 2:24 PM EDT GI Pre-Procedure Spoke with patient: Yes Confirmed date scheduled and patient report time: Yes Procedure Planned:Esophagogastroduodenoscopy(EGD) for control of bleeding,dilation(any means),imaging,tube placement Is the patient on blood thinners?no Procedure Instructions given to patient: Yes, and they verbalized their understanding of instructions given Patient instructed to have family/friend present for procedure transport home:Patient/patient customer counter representative was told that if they do [...] area. Any barriers to Patient learning: Patient/Patient Delicatessen Clerk responded appropriately on phone. Type of instruction given: Verbal by telephone contact. KATIA Al documented [facility] History of Present illness Narrative* Fatuma Phipps, [place]INDEPENDENT AGENT MUSIC EDUCATION - 10/18/2024 1:20 PM EDT Follow up [...] limited to risks of scarring, darker or manufacturing sales representative pigmentary changes, recurrence, incomplete removal [...] weeks, follow up ISKs documented in this encounterMissouri Baptist Medical [id number] Evaluation note* Diagnosis Onset Date Resolution Status Admit Date Dysphagia acute October 18 10:44am GERD (gastroesophageal reflu x disease) acute October 18, 2024 10:44am Schatzki's ring acute October 10:44am Squamous papilloma acute October 18, 2024 10:44am Encounter for subsequent annual wellness visit in Medicare patient noneactive January 16, 2025 11:01am [facility] Work Phone: 1(203) 558-908004-01-2025 Instructions* Patient Instructions* Jaclyn Stewart APRN.CNP - 10/16/2024 1:44 PM EDT -take first dose of pantoprazole as you have been, take second dose a half hour to an hour before dinner. -schedule EGD at [facility] to be done in 8-12 weeks, to reschedule [phone] option 0. 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 documented in this encounterC[facility]-2025 NoteHNO ID: [id number] Author: JACLYN STEWART APRN.CNP Service: ? Author [...] following chief complaint: Patient underwent EGD at [facility], 2 cm esophageal lesion was noted 33 cm from the incisors. Bx confirm inflammatory lesion and eosinophilic esophagitis. Presenting to [facility] for further management/second opinion. Patient reports dysphagia symptoms started awhile ago, one incident food got stuck and she had a hard time getting it to go down, prompting visit to local GI. Since EGD locally has been taking twice daily pantoprazole 40 mg, by at least an hour from levothyroxine. Does patient have achalasia? No GI EVALUATION Reviewed EGD 10/03/24 at [facility] Folds and furrows circumferential esophagus, 2 [...] daily. Repeat EGD in 8-12 weeks at [facility] with distal and proximal esophageal bx. - EGD - THERAPEUTIC, EUS, OR TUBE INTERVENTIONS - EGD - THERAPEUTIC, EUS, OR TUBE INTERVENTIONS 2. Esophageal lesion - ICD9: 530.9, ICD10: K22.9 2 cm lesion 33 cm from the incisors was found on local EGD, bx reveal inflammatory, no malignancy. Will reassess lesion with bx during repeat EGD at [facility]. - EGD - THERAPEUTIC, EUS, OR TUBE INTERVENTIONS - EGD - THERAPEUTIC, EUS, OR TUBE INTERVENTIONS Jaclyn Stewart APRN.GERMAINE I spent a total of 45 minutes on the date of the service which included preparing to see the patient, qwfz-gh-gmzy patient care, completing clinical documentation, obtaining and/or reviewing separately obtained history, performing a medically appropriate examination, counseling and educating the patient/family/caregiver, ordering medications, tests, or procedures, communicating with other HCPs (not separately reported), independently interpreting results (not separately reported), communicating results to the patient/family/caregiver, and care coordination (not separately reported). Jaclyn Stewart APRN.CNP October 16, 2024 1:23 [facility]04-01-2025 History of Present illness Narrative * Jaclyn Stewart APRN.CNP - 10/16/2024 1:23 PM EDT Images from [...] the following chiefcomplaint: Patient underwent EGD at [facility], 2 cm esophageal lesion was noted 33 cm from the incisors. Bx confirm inflammatory lesion and eosinophilic esophagitis. Presenting to [facility] for further management/second opinion. Patient reports dysphagia symptoms started awhile ago, one incident food got stuck and she had a hard time getting it to go down, prompting visit to local GI. Since EGD locally has been taking twice daily pantoprazole 40 mg, by at least an hour from levothyroxine. Does patient have achalasia? No GI EVALUATION Reviewed EGD 10/03/24 at [facility] Folds and furrows circumferential esophagus, 2 [...] daily. Repeat EGD in 8-12 weeks at [facility] with distal and proximal esophageal bx. - EGD - THERAPEUTIC, EUS, OR TUBE INTERVENTIONS - EGD - THERAPEUTIC, EUS, OR TUBE INTERVENTIONS 2. Esophageal lesion - ICD9: 530.9, ICD10: K22.9 2 cm lesion 33 cm from the incisors was found on local EGD, bx reveal inflammatory, no malignancy. Will reassess lesion with bx during repeat EGD at [facility]. - EGD - THERAPEUTIC, EUS, OR TUBE INTERVENTIONS - EGD - THERAPEUTIC, EUS, OR TUBE INTERVENTIONS Jaclyn Stewart APRN.INDEPENDENT AGENT MUSIC EDUCATION I spent a total of 45 minutes on the date of the service which included preparing to see the patient, eopc-tn-nqiu patient care, completing clinical documentation, obtaining and/or reviewing separately obtained history, performing a medically appropriate examination, counseling and educating the pat ient/family/caregiver, ordering medications, tests, or procedures, communicating with other HCPs (not separately reported), independently interpreting results (not separately reported), communicatingresults to the patient/family/caregiver, and care coordination (not separately reported). Jaclyn Stewart APRN.CNP October 16, 2024 1:23 PM documented in this encounterC[facility]03-[facility]-2025 NoteHNO ID: [id number] Author: BLANCA DESOUZA RN Service: ? Author Type: Registered Nurse Type: Progress Notes Filed: 10/16/2024 08:43 Note Text: New Patient/Consult REASON FOR VISIT Tarah Briseno is a 74 year old female who is scheduled for esophageal tumor at the consult request of . [facility]24[facility]03[facility] History of Present illness Narrative* Blanca Desouza RN - 10/15/2024 11:06 AM EDT Images from the original note were not included. New Patient/Consult REASON FOR VISIT Tarah Briseno is a 74 year old female who is scheduled for esophageal tumor at the consult request of . EGD 10/03/2024 documented in this encounterC[facility] Clinic [facility]03-19-2025 [place] [address] Gastroenterology H&P Signed Patient: Tarah Briseno MR#: [id number] : 1950 Acct:[id number] Age/Sex: 74 / F Adm Date: 5 Loc: Room: Type: [facility] Attending Dr: Alicia Wilks MD Copies to: MD Jacqueline Sears APRN, CNP~ Date of Service: 10/03/2024 HISTORY & PHYSICAL: [...] Wilks M.D. Documented By: Alicia Wilks MD 10/03/241134 Signed By: 10/03/241134 [facility]03-19-2025 [place] [address] EGD Procedure Note Signed Patient: Tarah Briseno MR#: [id number] : 1950 Acct:[id number] Age/Sex: 74 / F Adm Date: 5 Loc: Room: Type: [facility] Attending Dr: Alicia Wilks MD Copies to: MD Jacqueline Sears APRN, INDEPENDENT AGENT MUSIC EDUCATION~ Esophagogastroduodenoscopy Date/Provider Date: 10/03/2024 Alicia Wilks MD [...] MD 10/03/24 1136 Signed By: 10/03/24 1140 [facility]02-26-2025 History of Present illness Narrative * Fatuma Phipps, [place]ENT [employer] MUSIC EDUCATION - 09/12/2024 1:10 PM EST Follow up [...] limited to risks of scarring, darker or manufacturing sales representative pigmentary changes, recurrence, incomplete removal [...] Next Visit: 4 weeks documented in this encounterMissouri Baptist Medical CenterGcykvauecx00-32-4190 History of Present illness Narrative* CITLALY Alcaraz [...] limited to risks of scarring, darker or manufacturing sales representative pigmentary changes, recurrence, incomplete removal [...] month, follow up ISKs documented in this encounterMissouri Baptist Medical CenterHqrldmpvwb03-47-3120 Evaluation note* Diagnosis Onset Date Resolution Status Admit Date Atypical chest pain acute Jan2024 11:29am Dysphagia acute August 07, 2024 11:29am GERD (gastroesophageal reflu x disease) acute August 07 11:29am Atypical chest pain acute u 2024 10:36am Dysphagia acute September 06, 2024 10:36am GERD (gastroesophageal reflu x disease) acute September 06, 025 10:36am Schatzki's ring acute September 06, 2024 10:36am [facility] Work Phone: 1(303) 582-208001-21-2025 Evaluation note* Diagnosis Onset Date Resolution Status Admit Date Atypical chest pain acute 2024 11:29am Dysphagia acute August 07, 2024 11:29am GERD (gastroesophageal reflu x disease) acute August 07 11:29am Atypical chest pain acute 2024 10:36am Dysphagia acute September 06, 2024 10:36am GERD (gastroesophageal reflu x disease) acute September 06, 2 025 10:36am Schatzki's ring acute September 06, 2024 10:36am Dysphagia acute October 18 10:44am GERD (gastroesophageal reflu x disease) acute October 18, 2024 10:44am Schatzki's ring acute October 10:44am [facility] Work Phone: 1(726) 664-723111-26-2024 Evaluation note* Diagnosis Onset Date Resolution Status Admit Date GERD (gastroesophageal reflu x disease) acute June 12, 2 024 3:00pm Dysphagia acute August 07, 2024 11:29am [facility] Work Phone: 1(928) 523-937211-26-2024 Evaluation note* Diagnosis Onset Date Resolution Status Admit Date GERD (gastroesophageal reflu x disease) acute June 12, 2 024 3:00pm Atypical chest pain acute 2024 11:29am Dysphagia acute August 07, 2024 11:29am GERD (gastroesophageal reflu x disease) acute August 07 11:29am Dysphagia acute September 06, 2024 10:36am [facility] Work Phone: 1(557) 973-514711-26-2024 Hospital Discharge instructions Patient Education 06/12/2024 11:13:21 [...] (electrical nerve stimulation). ?For women, using a manager medical to prevent urine leaks. This [...] right after experiencing incontinence. General instructions Take zfxl-qrj-iwujwcm and prescription medicines only as told by [...] important. Where to find more information National [place] of Diabetes and Digestive and Kidney Diseases: www.niddk.nih.gov [employer]: www.urologyhealth.org Contact a health care [...] provider. Document Revised: 02/06/2021 Document Reviewed: 02/06/2021 [employer] Patient Education 2023 PubliAtis. Follow Up Care 04/09/2024 13:43:38 With:[facility] Address: When: Unknown Comments:Only if needed/new problems arise. No scheduled appointment indicated at this time. [facility] [place] 11-26-2024 NotePatient Education Urology Urinary Incontinence Urinary [...] nerve stimulation). ? For women, using a manager medical to prevent urine leaks. This [...] your health care provider (more content not included)...[facility] 04-09-2024 Hospital Discharge instructions Patient Education [...] Up Care 02/15/2024 13:54:28 With:Antonio AMBRIZ Address: [address] [place], [place] [id number] Business (1) When: Unknown Comments:Please make a follow up appointment with one of our nurse practitioners or physician assistants within two months with a bladder scan to assess your bladder emptying. Have a great day! [facility] 09-23-2024 NotePatient Education Cystoscopy with Botox [...] if you have a fever over 100 degrees.[facility] 02-15-2024 Hospital Discharge instructions Patient Education [...] (electrical nerve stimulation). ?For women, using a manager medical to prevent urine leaks. This [...] right after experiencing incontinence. General instructions Take sqsz-fin-dodkekk and prescription medicines only as told by [...] important. Where to find more information National [place] of Diabetes and Digestive and Kidney Diseases: www.niddk.nih.gov [employer]: www.urologyhealth.org Contact a health care [...] provider. Document Revised: 02/06/2021 Document Reviewed: 02/06/2021 Mural.[employer] Patient Education 2022 [employer]is. 02/15/2024 13:25:40 Overactive Bladder, Adult Overactive Bladder, [...] your health care provider. General instructions Take ctxk-hbi-qiskhbm and prescription medicines only as told by [...] provider. Document Revised: 03/23/2021 Document Reviewed: 03/23/2021 Mural.[employer] Patient Education 2022 PubliAtis. Follow Up Care 07/27/2023 11:24:53 With:MADELIN CORDOBA, Antonio Alonzo, URL Address: [facility] [employer] [address] [facility] [employer] [place] [id number] When: Unknown Comments:Juanita Carreon [facility] 01-10-2024 Hospital Discharge instructions Patient Education 07/27/2023 11:17:05 [...] (electrical nerve stimulation). ?For women, using a manager medical to prevent urine leaks. This [...] right after experiencing incontinence. General instructions Take bibm-dcc-zzmzmlv and prescription medicines only as told by [...] important. Where to find more information National [place] of Diabetes and Digestive and Kidney Diseases: www.niddk.nih.gov [employer]: www.urologyhealth.org Contact a health care [...] provider. Document Revised: 02/06/2021 Document Reviewed: 02/06/2021 Mural.[employer] Patient Education 2022 Pub[employer]is. Follow Up Care 01/11/2023 10:33:06 With:MADELIN CORDOBA, Antonio Alonzo, URL Address: [facility] [address] [address] When: Unknown [facility] 06-27-2023 Hospital Discharge instructions Patient Education 01/11/2023 [...] your health care provider. General instructions Take vjpe-fsn-fhbflnz and prescription medicines only as told by [...] provider. Document Revised: 03/23/2021 Document Reviewed: 03/23/2021 Mural.ly Patient Education 2022 [employer] Inc. Follow Up Care 12/07/2022 09:30:53 With:WOLFGANG CORDOBA, Oh Bradshaw, URL Address: [address] [place] [phone] [phone] When:Within 6 Month(s) Comments:Dr. Ambriz [facility] 05-23-2023 Hospital Discharge instructions Follow Up Care 12/07/2022 09:39:03 With:Oh GOSS Address: Allison [facility] [place] [address] Business (1) When:1 week With:Oh GOSS Address: Allison [address] [facility] [place] [address] Business (1) When: Unknown [facility]01-24-2023 Hospital Discharge instructions Patient Education 08/10/2022 [...] (electrical nerve stimulation). For women, using a manager medical to prevent urine leaks. This [...] right after experiencing incontinence. General instructions Take lihl-ppt-baxqgnb and prescription medicines only as told by [...] 08/11/2005 Document Revised: 07/14/2018 Document Reviewed: 10/13/2017 Mural.ly Patient Education 2020 Pub[employer]Atis. Follow Up Care 07/07/2022 12:08:02 With:WOLFGANG CORDOBA, Oh Bradshaw, URL Address: [address] [place] [address]- When: Unknown [facility] 07-05-2022 Hospital Discharge instructions Patient Education 01/19/2022 [...] fried and sweet foods. General instructions Take cjpf-koh-jjafjcy and prescription medicines only as told by [...] 04/30/2010 Document Revised: 10/25/2019 Document Reviewed: 07/20/2018 Mural.ly Patient Education 2020 Pub[employer]Atis. Follow Up Care 01/06/2021 11:55:31 With:Deo Fermin MD, Vida Diaz, URO Address: [facility] [address] [place] [phone] When: Unknown [facility] 04-28-2022 Hospital Discharge instructions Patient Education 11/12/2021 [...] (electrical nerve stimulation). For women, using a manager medical to prevent urine leaks. This [...] right after experiencing incontinence. General instructions Take rteu-ydl-laegptl and prescription medicines only as told by [...] 08/11/2005 Document Revised: 07/14/2018 Document Reviewed: 10/13/2017 Mural.ly Patient Education 2020 PubliAtis. 11/12/2021 12:04:09 Overactive Bladder, Adult Overactive Bladder, [...] fried and sweet foods. General instructions Take phjw-chn-tdtzirw and prescription medicines only as told by [...] 04/30/2010 Document Revised: 10/25/2019 Document Reviewed: 07/20/2018 Mural.ly Patient Education 2020 M[employer] Inc. Follow Up Care 07/09/2021 11:32:05 With:Vida Desouza Jr., MD, URO Address: [phone] When:01/12/2022 [facility] Evaluation + Plan note Future Appointments Appointment Date:01/19/2022 09:15:00 AM Scheduled Provider:Vida Desouza Jr., MD Location:[facility] Appointment Type:URO Office Visit [facility] Evaluation + Plan note Future Appointments Appointment Date:07/07/2022 10:00:00 AM Scheduled Provider: Location:[facility] Appointment Type:Urology FT Appointment Date:07/07/2022 11:00:00 AM Scheduled Provider: Location:[facility] Appointment Type:Urology FT General Surgery [place] Evaluation + Plan note Future Appointments Appointment Date:11/02/2022 12:15:00 PM Scheduled Provider:Oh GOSS MD Location:[facility] Appointment Type:URO Office Visit [facility] evaluation + Plan note Future Appointments Appointment Date:01/05/2023 09:15:00 AM Scheduled Provider: Location:[facility] Appointment Type:Urology FT Appointment Date:01/11/2023 09:30:00 AM Scheduled Provider:Oh GOSS MD Location:[facility] Appointment Type:URO Office Visit Diagnostic Tests Pending * Urine Culture [facility]ments Appointment Date:01/11/2023 09:30:00 AM Scheduled Provider:Oh GOSS MD Location:[facility] Appointment Type:[facility] Future Appointments Appointment Date:07/27/2023 10:15:00 AM Scheduled Provider:Antonio AMBRIZ MD Location:[facility] Appointment Type:URO Office Visit [facility] Evaluation + Plan note Future Appointments Appointment Date:07/27/2023 10:15:00 AM Scheduled Provider:Antonio AMBRIZ MD Location:[facility] Appointment Type:URO Office Visit Appointment Date:03/26/2024 01:00:00 PM Scheduled [facility]ness [facility] Future Appointments Appointment Date:02/15/2024 01:30:00 PM Scheduled Provider:Antonio AMBRIZ MD Location:[facility] Appointment Type:URO Office Visit Appointment Date:03/26/2024 01:00:00 PM Scheduled [facility] Medicare Wellness Subsequent [facility] Evaluation + Plan note Future Appointments Appointment Date:03/26/2024 01:00:00 PM Scheduled Provider: Location:[facility] Appointment Type:FM Medicare Wellness Subsequent Appointment Date:04/06/2024 09:00:00 AM Scheduled Provider: [facility]oint[facility] Type:Urology CALL PAT FT Appointment Date:04/09/2024 01:15:00 PM Scheduled Provider: Location:[facility] Appointment Type:Urology FT [facility] Evaluation + Plan note Future Appointments Appointment Date:06/12/2024 10:20:00 AM Scheduled Provider:JACQUELINE HUFF PA-C Location:[facility] Appointment Type:URO Office Visit [facility] Evaluation + Plan note Future Appointments Appointment Date:04/06/2024 09:00:00 AM Scheduled Provider: Location:[facility] Appointment Type:Urology CALL PAT FT Appointment Date:04/09/2024 01:15:00 PM Scheduled Provider: Location:[facility] Services Appointment Type:Urology FT [facility] evaluation + Plan note Future Appointments Appointment Date:04/15/2025 11:30:00 AM Scheduled Provider: Location:[facility] Appointment Type:Urology CALL PAT FT Appointment Date:04/18/2025 09:15:00 AM Scheduled Provider: Location:[facility] Appointment Type:Urology FT [facility] [place] Evaluation note* Diagnosis Onset Date Resolution Status Screening for colon cancer a [facility] Work Phone: evaluation note* Diagnosis Onset Date Resolution Status Asthma acute Hyperlipemia acute Hypothyroid acute Screening for colon cancer a [facility] Work Phone: Evaluation note* Diagnosis Inflamed seborrheic keratosis documented in this encounter [facility] HealthcareEvaluation note* Diagnosis Inflamed seborrheic keratosis documented in this encounter [facility] HealthcareEvaluation note* Diagnosis Eosinophilic esophagitis- Primary Esophageal lesion Unspecified disorder of esophagus [facility] Diagnosis Eosinophilic esophagitis- Primary Esophageal lesion Unspecified disorder of esophagus [facility] Diagnosis Eosinophilic esophagitis- Primary [facility] Diagnosis Melanocytic nevus of trunk- Primary Benign neoplasm of skin of trunk, except scrotum Seborrheic keratosis Inflamed seborrheic keratosis documented in this encounter [facility] HealthcareHistory and physical note Author Alicia Wilks [facility] Note Date/Time October 03, 2024 12: 30pm [facility] [address] [place] [address] Gastroenterology H&P Signed Patient: Tarah Briseno MR#: [id number] : 1950 Acct:[id number] Age/Sex: 74 / F Adm Date: 5 Loc: Room: Type: [facility] Attending Dr: Alicia Wilks MD Copies to: MD Jacqueline Sears, CLINICAL COURIER, [employer]DEPENDENT [employer]~ Date of Service: 10/03/2024 HISTORY & PHYSICAL: [...] <Electronically signed by Alicia Wilks MD> 10/03/24 276[address] [facility] Work Phone: Hospital course Narrative No data available for this section [facility] Discharge instructions No data available for this section [facility] instructionsAmbulatory Orders* Referral to Gastroenterology Time Frame: 08/07/24, Location: None [facility] Work Phone: Hospital Discharge instructionsAmbulatory Orders* Referral to Weight Management Time Frame: 03/12/25, Location: None [facility] Work Phone: Progress note No data available for this section [facility] reason for referral (narrative)No reason for referral information [facility] Work Phone: Reason for visit Narrative* Outpatient Procedure (Routine) - Closed Specialty Diagnoses / Procedures Referred By Contac t Referred To Contact [facility] Diagnoses Eosinophilic esophagitis Esophageal lesion Procedures EGD - THERAPEUTIC, EUS, OR TUBE INTERVENTIONS EGD - THERAPEUTIC, EUS, OR TUBE INTERVENTIONS EGD DILATION GASTRIC/DUODENAL STRICTURE Jaclyn Stewart, CLINICAL COURIER.INDEPENDENT AGENT [employer] [address] [place] [address] Phone: tel: fax: [facility] [address] [place] [address] Referral ID Status Reason Start Date Expiration Date V isits Requested Visits Authorized [id number] Closed Auto-Generate d Referral 10/16/2024 10/16/2025 1 1 [facility] Summary Purpose Family History No Family [...] (gastroesophageal reflux disease) J milli 2024 11:05am Chief Complaint Admit Date Medicare AWV Subsequent January 16, 2025 1 1:01am follow up gerd/dysphagia January 28, 2025 11:05am Amb Documentation March 04, 2025 1: 06pm Left Hand Stitch Removal, Post ER visit, [facility] March 12, 2025 9:06am Reason for Visit Admit Date Asthma January [...] (gastroesophageal reflux disease) J milli 2024 11:05am BMI 39.0-39.9,adult March 12, 2025 9: 06am Cellulitis March 12, 2025 9: 06am Hyperlipemia March 12, 2025 9: 06am Additional Source Comments Care Team (unrecognized sect ion and content) Team Status: Active Member Role Status Dates Raul Lewis MD Primary Care Provider Active Team Status: Inactive Member Role Status Dates Raul Lewis MD Primary Care Provider Active S tart: January 10, 2024 End: January 10, 2024 Jacqueline Hernandez APRN [employer] Attending Provider Act mecca Start: January 10, 2024 End: January 10, 2024 Team Status: Active Member Role Status Dates Jacqueline Hernandez APRN [employer] Primary Care Provider Active Team Status: Inactive Member Role Status Dates Jacqueline Hernandez APRN [employer] Primary Care Provider, Attending Provider Active Start: February 17, 2024 End: February 17, 2024 Team Status: Inactive Member Role Status Dates Jacqueline Hernandez APRN [employer] Primary Care Provider, Attending Provider Active Start: June 12, 2024 End: June 12, 2024 Team Status: Inactive Member Role Status Dates Jacqueline Hernandez APRN [employer] Primary Care Provider, Attending Provider Active Start: August 07, 2024 End: August 07, 2024 Male Infertility Specialist Relationship Specialty Start Date End Date Colby Escobar MD [address] [place] [id number] PCP - General Family Medicine 07/21/23 Male Infertility Specialist Relationship Specialty Start Date End Date Colby Escobar MD [address] [place] [address] PCP - General Family Medicine 07/21/23 Team Status: Inactive Member Role Status Dates Jacqueline Hernandez APRN [employer] Primary Care Provider, Referring Provider Active Start: September 06, 2024 End: September 06, 2024 [place] APRN Attending Provider Active Start: September 06, 2024 End: September 06, 2024 Male Infertility Specialist Relationship Specialty Start Date End Date Colby Escobar MD [address] [place] [address] PCP - General Family Medicine 07/21/23 Team Status: Inactive Member Role Status Dates Jacqueline Hernandez APRN [employer] Primary Care Provider Active Start: October 03, 2024 End: October 03, 2024 Alicia Wilks MD Attending Provider Active Start: October 03, 2024 End: October 03, 2024 Team Status: Active Member Role Status Dates Jacqueline Hernandez APRN [employer] Primary Care Provider Active Start: October 03, 2024 Alicia Wilks MD Attending Provider, Other Provider Active Start: October 03, 2024 Male Infertility Specialist Relationship Specialty Start Date End Date Raul Lewis MD [address] [place] [address] PCP - General 02/10/04 Team Status: Inactive Member Role Status Dates Jacqueline Hernandez APRN [employer] Primary Care Provider Active Start: October 18, 2024 End: October 18, 2024 [place] APRN Attending Provider Active Start: October 18, 2024 End: October 18, 2024 Male Infertility Specialist Relationship Specialty Start Date End Date Raul Lewis MD [facility] [place] [address] PCP - General 02/10/04 Male Infertility Specialist Relationship Specialty Start Date End Date Raul Lewis MD [address] [place] [address] PCP - General 02/10/04 Male Infertility Specialist Relationship Specialty Start Date End Date Raul Lewis MD [address] [place] [address] PCP - General 02/10/04 Team Status: Inactive Member Role Status Dates Jacqueline Hernandez APRN [employer] Primary Care Provider Active Start: January 16, 2025 End: January 16, 2025 Jacqueline Hernandez APRN [employer] Attending Provider Act mecca Start: January 16, 2025 End: January 16, 2025 Male Infertility Specialist Relationship Specialty Start Date End Date Raul Lewis MD [address] [place] [address] PCP - General 02/10/04 Team Status: Inactive Member Role Status Dates Jacqueline Hernandez APRN [employer] Primary Care Provider Active Start: January 28, 2025 End: January 28, 2025 [place] APRN Attending Provider Active Start: January 28, 2025 End: January 28, 2025 Male Infertility Specialist Relationship Specialty Start Date End Date Colby Escobar MD [address] [place] [id number] PCP - General Family Medicine 07/21/23 Male Infertility Specialist Relationship Specialty Start Date End Date Colby Escobar MD [address] [place] [id number] PCP - General Family Medicine 07/21/23 Team Status: Active Member Role Status Dates Jacqueline Hernandez APRN [employer] Primary Care Provider Active Start: March 04, 2025 Minnie Haro CMA Attending Provider Active Start: March 04, 2025 Team Status: Active Member Role Status Dates Jacqueline Hernandez APRN [employer] Primary Care Provider Active Start: March 11, 2025 Jacqueline Hernandez APRN [employer] Attending Provider Act mecca Start: March 11, 2025 Team Status: Inactive Member Role Status Dates Jacqueline Hernandez APRN [employer] Primary Care Provider Active Start: March 12, 2025 End: March 12, 2025 Jacqueline Hernandez APRN [employer] Attending Provider Act mecca Start: March 12, 2025 End: March 12, 2025 INFORMATION SOURCE (unrecogn ized section and content) DATE CREATED AUTHOR 05/19/2022 [facility] DATE CREATED AUTHOR AUTHOR'S ORGANIZ ATION 10/14/2024 [facility] DATE CREATED AUTHOR AUTHOR'S ORGANIZ ATION 01/15/2025 [facility] DATE CREATED AUTHOR AUTHOR'S ORGANIZ ATION 02/11/2025 [facility] DATE CREATED AUTHOR AUTHOR'S ORGANIZ ATION 03/30/[address] [facility] Goals (unrecognized section and content) Goals may [...] or prosecute any alcohol or drug abuse patient.[facility] the event this information is protected by the Federal Confidentiality of Alcohol and Drug Abuse Patient Records regulations: The Federal rules restrict any use of the information to criminally investigate or prosecute any alcohol or drug abuse patient.[facility] the event this information is protected by the Federal Confidentiality of Alcohol and Drug Abuse Patient Records regulations: The Federal rules restrict any use of the information to criminally investigate or prosecute any alcohol or drug abuse patient.[facility] the event this information is protected by the Federal Confidentiality of Alcohol and Drug Abuse Patient Records regulations: The Federal rules restrict any use of the information to criminally investigate or prosecute any alcohol or drug abuse patient.[facility] Hospital[facility] the event this information is protected by the Federal Confidentiality of Alcohol and Drug Abuse Patient Records regulations: The Federal rules restrict any use of the information to criminally investigate or prosecute any alcohol or drug abuse patient.[facility] Hospital[facility] the event this information is protected by the Federal Confidentiality of Alcohol and Drug Abuse Patient Records regulations: The Federal rules restrict any use of the information to criminally investigate or prosecute any alcohol or drug abuse patient.[facility] FOR RECORDS PERTAINING TO PATIENTS WHO [...] BE BASED ON THE PRIMARY CLINICAL RECORDS. [employer] [facility]. provides no warranty or guarantee of the accuracy or completeness of information in this document.
== END 2025-04-11 11:00 | disposition home or self-care (01) ==
LOC: RAD 10:59
PROVIDERS: PCP Nurse Practitioner Family; Visit Provider Nurse Practitioner Family
DX: Z78.0 Asymptomatic menopausal state (principal); Z13.820 Encounter for screening for osteoporosis
CPT/HCPCS: 77080

== ENCOUNTER 2025-07-09 15:12 | Outpatient (OUT) | payer MEDICARE, SELFPAY ==
--- OUTSIDE RECORDS SUMMARY | 2024-01-23 09:00 | XMS_ITS ---
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 Name Role Phone PCP, NO Primary Care Provider Unavailabl zac Cullen Cr Unavailable [phone] Self, Referral Unavailable Unavailable REASON FOR VISIT LEFT HIP PAIN RECHECK Encounters Encounter Location Date Provider Diagnosis [facility] Office [address] [facility] [place] [address] 01/23/2024 Cullen Cr Plan Of Treatment No Information Progress Notes * TARAH TEMPLE [place]OB:[birth year] (74 yo F)Acc No.[id number]:01/23/2024 Patient:?TARAH TEMPLE :?Cullen Cr, DODOB:1950???Age:73 Y ???Sex:FemaleDate:01/23/2024hone:[phone]:[address] [place], [place] [phone]:NO PCP Subjective: * Chief Complaints: * 1 . LEFT HIP PAIN RECHECK. * Medical History: Objective: * Vitals: Assessment: Plan: * Treatment: Forms: * Images: * Electronic signature of Cullen Cr DO on 07/09/2025 at 03:15 PM ESTSign off status: Pending * Provider: Jona Cr DO Date: 0 01/23/2024 Generated for Printing/Faxing/eTransmitting on:?07/09/2025 03:15 PM EST
--- OUTSIDE RECORDS SUMMARY | 2024-03-26 09:10 | XMS_ITS ---
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 Name Role Phone PCP, NO Primary Care Provider Unavailabl Cullen Gardner Unavailable [phone] Self, Referral Unavailable Unavailable REASON FOR VISIT LEFT HIP RECHECK - CSI 02/19 Medications Medication SIG (Take, Route, Frequency, Duration) Notes Start Date End Date Status Medrol Dose Pack 4 mg as directed ORAL as DIRECT ED 01/09/2024ctive Encounters Encounter Location Date Provider Diagnosis [facility] Office [address] [place] [address] [place] [address] 03/26/2024 Cullen Cr Plan Of Treatment No Information Progress Notes * TARAH TEMPLEDOB:[birth year] (74 yo F)Acc No.[id number]:03/26/2024 Patient:?MAURIMARTHA TARAH Mohamud :?BRI LamOB:1950???Age:73 Y ???Sex:FemaleDate:4Phone:[phone]:[address] [place], [place] [phone]:NO PCP Subjective: * Chief Complaints: * 1 . LEFT HIP RECHECK - CSI 02/19. * Medical History: * Medications: T aking Medrol Dose Pack 4 mg as directed ORAL as DIRECTED Objective: * Vitals: Assessment: Plan: * Treatment: Forms: * Images: * Electronic signature of Cullen Cr DO on 07/09/2025 at 03:15 PM ESTSign off status: Pending * Provider: Jona Cr, DO Date: 0 03/26/2024 Generated for Printing/Faxing/eTransmitting on:?07/09/2025 03:15 PM EST
--- OUTSIDE RECORDS SUMMARY | 2025-07-09 10:06 | XMS_ITS | Continuity of Care Document ---
Author Organization [facility] Address [address] [place] [address] Phone Care Team Providers Care Medical Scientific Liaison Name Role Phone Jacqueline Hernandez APRN Primary Care Provider [place] APRN Attending Provider [phone] Jacqueline Kan DNP Attending Provider Jacqueline Hernandez APRN Attending Provider Care Teams Patient Care Team Team Status: Active Member Role/Relationship Status Dates Jacqueline Hernandez APRN STIFF LEG DERRICK OPERATOR-C Primary Care Provider Active Visit Care Team Team Status: Inactive Member Role/Relationship Status Dates Jacqueline Hernandez APRN STIFF LEG DERRICK OPERATOR-C Primary Care Provider Active Start: April End: May 13, 2025Rosales Romo ProviderActiveStart: May 13, 2025 End: May 13, 2025 Visit Care Team Team Status: Inactive Member Role/Relationship Status Dates Jacqueline Hernandez APRN STIFF LEG DERRICK OPERATOR-C Primary Care Provider Active Start: April End: May 13, 2025Poncho Nova ProviderActiveStart: May 13, 2025 End: May 13, 2025 Visit Care Team Team Status: Inactive Member Role/Relationship Status Dates Jacqueline Hernandez APRN STIFF LEG DERRICK OPERATOR-C Primary Care Provider Active Start: July 082024 End: July 08, 2025Poncho Nova ProviderActiveStart: July 08, 2025 End: July 08, 2025 Patient Care Team Team Status: Inactive Member Role/Relationship Status Dates Jacqueline Hernandez APRN STIFF LEG DERRICK OPERATOR-C Primary Care Provider Active Start: July 092024 End: July 09, 2025Jacqueline Hernandez APRN STIFF LEG DERRICK OPERATOR-CAttending ProviderActive Start: July 09, 2025 End: July 09, 2025 Chief Complaint and Reason for Visit Chief Complaint Admit Date follow up May 13, 2025 1 0:55am [place] May 13, 2025 1 2:49pm 8-week July 08, 2025 1:01pm Right Shoulder Pain July 09, 2025 2:39pm Reason for Visit Admit Date Dysphagia May 13, 2025 1 0:55am GERD (gastroesophageal reflux disease) O ctober 2024 10:55am Schatzki's ring May 13, 2025 1 0:55am Abnormal weight gain May 13, 2025 12:49pm Asthma May 13, 2025 1 2:49pm BMI 40.0-44.9, adult May 13, 2025 12:49pm Dietary surveillance and counseling Octo anthony 2024 12:49pm Exercise counseling May 13, 2025 1 2:49pm GERD (gastroesophageal reflux disease) O ctober 2024 12:49pm Hx of cholecystectomy May 13, 2025 12:49pm Hx of tubal ligation May 13, 2025 12:49pm Hyperlipemia May 13, 2025 1 2:49pm Hypothyroid May 13, 2025 1 2:49pm Obesity, Class III, BMI 40-49.9 (morbid obesity) May 13, 2025 12:49pm Schatzki's ring May 13, 2025 1 2:49pm Abnormal weight gain July 08, 2025 1:01pm Asthma July 08, 2025 1:01pm BMI 40.0-44.9, adult July 08, 2025 1:01pm Dietary surveillance and counseling Dece mber 2024 1:01pm Exercise counseling July 08, 2025 1:01pm GERD (gastroesophageal reflux disease) D ecember 2024 1:01pm Hx of cholecystectomy July 08 1:01pm Hx of tubal ligation July 08, 2025 1:01pm Hyperlipemia July 08, 2025 1:01pm Hypothyroid July 08, 2025 1:01pm Obesity, Class III, BMI 40-49.9 (morbid obesity) July 08, 2025 1:01pm Schatzki's ring July 08, 2025 1:01pm Right shoulder pain July 09, 2025 2:39pm Allergies, Adverse Reactions, Alerts Allergen Type Severity Reaction Last Updated Verified Status iodine Allergy Severe Anaphylaxis July 09, 2025 2:42pm Y es Active latex Allergy Moderate Unknown Reaction July 09, 2025 2: 42pm Yes Active Social History Smoking Status Status Start Date End Date Date of Observa tion Never smoked tobacco (finding) May 13, 2025 1:24pm Observation Status Observation Response Date of Response Legal Sex [facility] (finding) [facility] Family History Relationship Condition Age at Onset Recorded Date/T kiah mother Malignant neoplasm of uterus Unknown sisterDiabetes mellitusUnknownMyocardial infarctionUnknownHistory of drug abuse UnknownRestless legs syndromeUnknownMalignant neoplasmUnknownHigh blood cholesterolUnknownHypertensionUnknownbrotherHypertensionUnknownDiabetes mellitus UnknownOverweightUnknownsonAsthmaUnknown Problems Active Problems Problem Diagnosis/Recorded Date Onset Date Stat us Exercise counseling May 13, 2025 8:18am Unknown Active Screening for osteoporosis January 16, 2025 12:07pm Unkn own Active Screening for colon cancer January 10, 2024 1:52pm Unkn own Active Eustachian tube dysfunction February 17, 2024 11:07am U nknown Active Dietary surveillance and counseling May 13, 2025 8:18am Unknown Active Squamous papilloma October 31, 2024 1:24pm Unknown Active Abnormal weight gain May 13, 2025 8:18am Unknown Active Dysphagia August 07, 2024 11:57am Unknown A ctive Hyperlipemia January 10, 2024 6:35am Unknown Activ e Hypothyroid January 12, 2024 6:49am Unknown Activ e Post-menopausal January 16, 2025 12:07pm Unknown Ac tive Atypical chest pain Renee 22nd, 2025 8:15am Unknown Active Vertigo February 17, 2024 10:45am Unknown Act mecca Amayatzki's ring September 06, 2024 11:37am Unknown Active BMI 39.0-39.9,adult January 16, 2025 12:47pm Unknown Active BMI 40.0-44.9, adult May 13, 2025 12:41pm Unknow n Active Hx of cholecystectomy January 10, 2024 1:09pm Unknown Active Hx of tubal ligation May 13, 2025 12:18pm Unknow n Active Right shoulder pain July 09, 2025 2:56pm Unknown Active Obesity, Class III, BMI 40-4 9.9 (morbid obesity) May 13, 2025 12:41pm Unknown Active Screening for breast cancer January 16, 2025 12:41pm Unk nown Active GERD (gastroesophageal reflux disease) June 12, 2024 3:27pm Unknown Active Asthma January 12, 2024 8:44am Unknown Activ e Contact dermatitis February 07, 2024 12:35pm Unknown Active Inactive/Resolved Problems Problem Diagnosis/Recorded Date Onset Date Stat us Rib pain on left side March 06, 2025 8:50am Unknown Resolved Cellulitis March 12, 2025 8:31am Unknown Res olved Visit for suture removal March 12, 2025 12:04pm Unk nown Resolved Medications Medication Status Dose Units Route Directions Qty Days Refills S tart Date Stop Date End Date Reason(s) Instructions Adherence Triamcinolone Acetonide 0.1 % cream Discontinued 1 APPLIC TOPICAL Twice daily 30 10 0 February 06, 2024 11:00pm September 06, 2024 10:41amContact dermatitis Unspecified contact dermatitis, unspecified causeFluticasone Propionate 50 mcg/actuation spray,suspensionDiscontinued0.ROUTE.RTSTROE077Wlvvhl 2023 6:56amFebruary 2024 10:41amDysfunction of eustachian tube Unspecified Eustachian tube disorder, unspecified earUSE 1 SPRAY IN EACH NOSTRIL TWICE A DAYFamotidine 20 mg tabletDiscontinued0.ROUTE.BVYLEZE060Tjwqumf 2024 7:50amFebruary 2024 10:41amGastroesophageal reflux disease Gastro-esophageal reflux disease without esophagitisTAKE 1 TABLET BY MOUTH 2 TIMES A DAYAtorvastatin 40 mg peaocuVksduivszehk27RVGVFxnic85035Zydto 2024 2:30pmOctober 2024 6:26amHyperlipidemia Hyperlipidemia, unspecifiedLevothyroxine 25 mcg eokljqJxindzyaupev58SOSNYCzitp22 0April 2024 11:59amJuly 2024 7:33amLevothyroxine 25 mcg tabletActive 22CISJZCipwu684Redh 2024 7:33amComplies with drug therapyAtorvastatin 40 mg vghjvaBdslqhebqohh91GJQMNscwe57811Zmnxeyd 2024 6:26amNovember 2024 2:06pmHyperlipidemia Hyperlipidemia, unspecifiedAtorvastatin 40 mg hlgxnfYxtgjd74XJTSWrohn99046 June 12, 2025 2:06pmHyperlipidemia Hyperlipidemia, unspecifiedComplies with drug therapyPantoprazole 40 mg tablet,delayed release (DR/EC)Jllmriiczbzs74ABLNVfxkv enyps7939Vtgna 2024 11:00pmJuly 2024 10:10amAtorvastatin 40 mg cqxqhcGgvlzvgmtbdz82BQKMJfvrj January 09, 2024 11:00pmApril 2024 2:31pmLevothyroxine 25 mcg tablet Mlxhsnmrhldq90RUINFImoveGxwg 2023 11:00pmApril 2024 11:59am Levothyroxine 100 mcg zmygcaNeiqmafdmrrh233TNKSPFxqwxIidy 2023 11:00pmJune 2023 1:09pmOmeprazole 40 mg capsule,delayed release(DR/EC)Zmsmbs76ORBE Twice dailyJuly 2024 11:00pmComplies with drug therapyIbuprofen (Advil) 200 mg onlwmqYsocqx656NOYAGlxmo 6 hours as neededOct2024 11:00pm Complies with drug therapyMeclizine 25 mg eunqtgZdzxpjbpyfva80QQATQfsmx times daily as needed for npeiyfqcv00351Ibefpz 2023 11:00pmAugust 2023 11:01amVertigo Dizziness and giddinessMeclizine 25 mg exqnacWzwqnixognhj67TYAWFfukn times daily as needed for wqchftati60810Eaxbve 2023 11:01amFebruary 2024 10:41am Vertigo Dizziness and giddinessFluticasone Propionate (Flonase Allergy Relief) 50 mcg/actuation spray,cwwgplxcvpEitscdihlfzv9CSNLWSLLLRFRIZADgeaw pwpls91570Jxnbwp 2023 11:00pmAugust 2023 6:57amDysfunction of eustachian tube Unspecified Eustachian tube disorder, unspecified earadminister into each nostrilFamotidine (Pepcid) 20 mg rgyvyoFpgnuuntpajs49FIJSWfypr ukqte55132 June 12, 2024 12:00amNovember 2023 3:30pmGastroesophageal reflux disease Gastro-esophageal reflux disease without esophagitisFamotidine (Pepcid) 20 mg vdhesfEeyacmasrgcd28KTAFWwinn fiirk29720Kuvntqsd 2023 3:29pmJanuary 2024 11:51amGastroesophageal reflux disease Gastro-esophageal reflux disease without esophagitisFamotidine (Pepcid) 20 mg zinvwpGjowpnvlfmol39AHLSMzomx99949Itsqdmh 2024 11:51amJanuary 2024 7:50amGastroesophageal reflux disease Gastro-esophageal reflux disease without esophagitisCephalexin 500 mg capsule Ooostyvbimuu714IJQIUlmfz hrznj7479Eeukgm 2024 11:00pmOctober 2024 6:53amCellulitis Cellulitis, unspecifiedIbuprofen 600 mg oxyqtdUfaowl906PQWJMdlum gdxlf272422 July 09, 2025 12:00amRight shoulder pain Pain in right shoulderComplies with drug therapy Vital Signs Vital Reading Result Reference Range Collection Date/Time Height 64.5 [in_i] May 13, 2025 10:33wvTsjywu642.70 kgOctsaint joseph [facility] 2024 10:05amBP Systolic 128 mm[Hg]100-140Octsaint [facility]ose[facility] 2024 10:05amBP Xuiokqpck34 mm[Hg]60-100October 2024 10:05amBMI (Body Mass Index)39.4 kg/a9Odkvfuu 2024 10:05am Pdfjma71.5 [in_i]July 08, 2025 1:67klZudeat463.70 kgDecember 2024 1:10pmHeart Rate72 /ibj43-322Azydjeyy 22nd, 2025 1:10pmRespiratory rate18 /min 12-24Decemb2024 1:10pmBP Abhpxacf95 mm[Hg]100-140Decemb2024 1:10pmBP Cbzzygnkw83 mm[Hg]60-100Decemb2024 1:10pmBMI (Body Mass Index) 39.7 kg/n1Fipbsyow 2024 1:06aeQnpbst41.5 [in_i]July 09, 2025 2:43pm Tqlopm053.14 kgce2024 2:43pmBody Xxqvrbhbokc31.4 [degF]97.6-99.0 July 09, 2025 2:43pmHeart Rate88 /eaz39-641VtzisgxaJuly 09, 2025 2:43pm Oxygen saturation by Pulse veauvxpc04 %95-100July 09, 2025 2:43pmBP Vnclocoe315 mm[Hg]100-1402024 2:43pmBP Zowocbxgn46 mm[Hg]60-100 July 09, 2025 2:43pmBMI (Body Mass Index)39.5 kg/j5Ofhaqqlo 2024 2:43pm Advance Directives Advance Directive Response Recorded Date/ Time Advance Directives No January 09 12:54pm Insurance Providers Guarantor Dedra Temple Address [address] [place] [id number] Info.Home Phone: Coverage Status Update:2024 Payer Group Member ID Coverage Type Subscriber Relationship to Subscriber Effective Date Expiration Date Medicare [id number] Temple Id: [id number] [address] [place] [id number] Home Phone: Email: /16Self Encounters Encounter Location(s) Arrival/Admit Date Discharge/Departure Date Discharge/Departure Disposition Provider(s) Departed Physician/ Provider Office Visit -[facility] May 13, 2025 10:55am May 13, 2025 11:34am Discharged to home care or self care (routine discharge) Sven Noland APRN Departed Physician/ Provider Office Visit -[facility] May 13, 2025 12:49pm May 13, 2025 2:15pm Discharged to home care or self care (routine discharge) Sven Nova DNP Departed Physician/ Provider Office Visit -[facility] July 08, 2025 1:01pm July 08, 2025 1:39pm Discharged to home care or self care (routine discharge) Sven Nova DNP Departed Physician/ Provider Office Visit -[facility] July 09, 2025 2:39pm July 09, 2025 3:04pm Discharged to home care or self care (routine discharge) Jacqueline Hernandez APRN LITIGATION EXAMINER Recent Diagnosis Onset Date Admit Date Dysphagia Unknown May 13 10:55am GERD (gastroesophageal reflux disease) Unknown May 13, 2025 10:55am Schatzki's ring Unknown May 13 10:55am Abnormal weight gain Unknown April 12:49pm Asthma Unknown May 13 12:49pm BMI 40.0-44.9, adult Unknown April 12:49pm Dietary surveillance and counseling Unknown May 13, 2025 12:49pm Exercise counseling Unknown April 12:49pm GERD (gastroesophageal reflux disease) Unknown May 13, 2025 12:49pm Hx of cholecystectomy Unknown May 132024 12:49pm Hx of tubal ligation Unknown April 12:49pm Hyperlipemia Unknown May 13 12:49pm Hypothyroid Unknown May 13 12:49pm Obesity, Class III, BMI 40-4 9.9 (morbid obesity) Unknown May 13, 2025 12:49pm Schatzki's ring Unknown May 13 12:49pm Abnormal weight gain Unknown July 082024 1:01pm Asthma Unknown July 08, 1:01pm BMI 40.0-44.9, adult Unknown July 082024 1:01pm Dietary surveillance and counseling Unknown July 08, 2025 1:01pm Exercise counseling Unknown June 1:01pm GERD (gastroesophageal reflux disease) Unknown July 08, 2025 1:01pm Hx of cholecystectomy Unknown June 182024 1:01pm Hx of tubal ligation Unknown July 082024 1:01pm Hyperlipemia Unknown July 08, 025 1:01pm Hypothyroid Unknown July 08 025 1:01pm Obesity, Class III, BMI 40-4 9.9 (morbid obesity) Unknown July 08, 2025 1:01pm Schatzki's ring Unknown July 08, 025 1:01pm Right shoulder pain Unknown June 2:39pm Assessments Diagnosis Onset Date Resolution Status Admit Date Dysphagia acuteOct2024 10:55amGERD (gastroesophageal reflux disease)acute May 13, 2025 10:55amSchatzki's ringacuteOct2024 10:55amAbnormal weight gainacuteOct2024 12:49pmAsthmaacuteOctsaint joseph [facility] 2024 12:49pm BMI 40.0-44.9, adultacuteOctober 2024 12:49pmDietary surveillance and counselingacuteOct2024 12:49pmExercise counselingacuteOctsaint joseph [facility]rea 2024 12:49pmGERD (gastroesophageal reflux disease)acuteOctsaint joseph [facility]rea 2024 12:49pmHx of cholecystectomyacuteMay 13, 2025 12:49pmHx of tubal ligation acuteOct2024 12:49pmHyperlipemiaacuteOct2024 12:49pm HypothyroidacuteOctsaint joseph [facility]rea 2024 12:49pmObesity, Class III, BMI 40-49.9 (morbid obesity)acuteOct2024 12:49pmSchatzki's ringacuteOctsaint joseph [facility]rea 2024 12:49pmAbnormal weight gainacuteDesturgis hospitaler 2024 1:01pmAsthmaacute July 08, 2025 1:01pmBMI 40.0-44.9, adultacuteDecember 2024 1:01pm Dietary surveillance and counselingacuteDece2024 1:01pmExercise counselingacuteJuly 08, 2025 1:01pmGERD (gastroesophageal reflux disease) acuteJuly 08, 2025 1:01pmHx of cholecystectomyacuteJuly 08, 2025 1:01pmHx of tubal ligationacuteJuly 08, 2025 1:01pmHyperlipemiaacute July 08, 2025 1:01pmHypothyroidacuteJuly 08, 2025 1:01pmObesity, Class III, BMI 40-49.9 (morbid obesity)acuteJuly 08, 2025 1:01pmSchatzki's ringacuteJuly 08, 2025 1:01pmRight shoulder painacuteJuly 09, 2025 2:39pm Plan of Treatment Author [place] [facility] 2024 1:23pmA 74-year-old female patient with diagnosis of GERD, history of Schatzki's ring, intermittent dysphagia and squamous papilloma Continue twice daily PPI omeprazole 40 until July then down titrate to once daily. Denies dyspeptic complaints and is negative for dysphagia currently Patient scheduled for repeat EGD in April [address] [facility] [address] Downing for further surveillance regarding her squamous papilloma Records requested for EGD performed in April 25, 2025 as well as office notes for follow-up Follow-up in this office 2 weeks after down titration of PPI to ensure dyspeptic complaints remain under good control. Patient negative for breakthrough at this time Author Jacqueline Kan [facility] 2024 1:24pmSee above treatment plan. Appointment made with RD at checkout. Recommended at least 30 minutes of moderate physical activity most days of the week or 150 minutes weekly in addition to at least 2 days of strength training exercise. Last labs done 02/2025. Stable with Levothyroxine. Stable at this time without medication. Stable at this time with Oemprazole. Continue to follow with GI specialist. Stable at this time with Oemprazole. Continue to follow with GI specialist. Last labs done 02/2025. Stable with Lipitor. It is hoped that this will improve with participation in our weight management program. Has had a gall bladder removal. Follow-up with me in 8 weeks. Initial weight: 232.5 pounds Initial goals: 5% (220), 10% (209). Dietary recommendations: Recommend regular follow-up with our registered dietitian. Appointment made with RD at checkout. Exercise considerations: Recommended at least 30 minutes of moderate physical activity most days of the week or 150 minutes weekly in addition to at least 2 days of strength training exercise. LABS: 02/2025 Medication considerations: none Treatment Plan: Marni is a 74-year-old female who presents today for abnormal weight gain. She states that a few years ago she started trying to lose weight and get healthier. She states that she has cut out a lot of junk in her diet and she only eats once a day at dinnertime. She has lost about 30 pounds but seems to be at a standstill. She does drink chocolate milk in the morning or regular milk in the morning. 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 She does struggle with skipping breakfast, skipping lunch, eating most dinners out, family weight issues. Her medical history includes GERD with Schatzki's ring, asthma, hypothyroid, hyperlipemia, cholecystectomy, tubal ligation. Last lab work was done 02/2025. Plan is to take a weight centric approach to patient care in the treatment of excess adiposity and patient's weight related comorbidities. Discussed the impact of excess adiposity on overall health and increased risk of associated health conditions. Discussed treatment options including lifestyle interventions, such as calorie reduction and physical activity, and use of medications as an adjunct to amplify adherence to healthy behavior change. Discussed benefits, risks and side effects of medication. After informed discussion, patient would like to hold off on weight loss medications at this time. Patient denies: Any personal or family history of thyroid cancer. Patient denies any personal history of pancreatitis, kidney stones, glaucoma, seizure or formal diagnosis of bipolar disorder. Cholecystectomy. Tubal ligation. Patient is not interested in weight loss medications so we will keep her off of these for now. Appointment made with RD at checkout today. Recommended at least 30 minutes of moderate physical activity most days of the week or 150 minutes weekly in addition to at least 2 days of strength training exercise. Body composition analysis per SECA scan completed today at patient visit. Results reviewed with patient. Detailed report found located in patient chart. Follow up in 8 weeks or sooner if needed. It was discussed with patient that our role is to help them to understand the underlying complex biology of obesity as a disease and offer tools and support for overall health goals and set realistic expectations for weight loss. Understands that the treatment plan is personalized to the best of knowledge and ability with priority to decreasing wt related comorbidities as well as increasing functional capacity and quality of life. Will work with pt to help overcome barriers with the understanding that treatment plan may manager exchange time and tools, such as medications, do have limitations. Medications, as applicable, were discussed including up-to-date studies and effectiveness, risks and benefits, common side effects, MOA, etc. Regardless of medications, lifestyle change takes precedence. I highly recommended decreasing or eliminating caloric beverages especially sweetened beverages and alcohol. Pt should prioritize preplanning, shopping at the edge of the store, decreasing unhealthy food cues. I recommended packing snacks and meals when out of the home. No macronutrient is completely restricted. We discussed the addictive nature and unhealthy biological changes that occur with ultra processed food and how it may influence chronic disease. I highly recommended preference for whole foods/real foods and decrease added sugar, refined starches, and added fats. The plate method discussed and handout given. Lean unprocessed protein with each meal and each snack to help control appetite, decrease cravings and lessen muscle loss with weight loss advised. The patient will ideally try to get at least 5 or more servings of low carbohydrate veggies daily. Benefits of regular exercise including cardio and resistance training discussed and recommended, slowly increasing activity, as appropriate for the patient. Consider our service engineer for guidance. Handout given. We offer individual and group visits from several different practitioners which was also recommended to help with long-term behavioral change and support. The patient was instructed on good sleep hygiene and the importance of adequate sleep. Circadian rhythm and the importance of mealtime discussed. I recommended stress reduction and controlling factors within reasonable control. The majority of today's visit was spent evaluating patient, counseling/educating patient on the options for the treatment of obesity and weight related health issues. See above treatment plan. Patient has history of tubal ligation. Author Jacqueline [facility] 20[facility] 1:41pmWt. Hx: Highest weight: 270 pounds Start: 05/13/25, 232.5 pounds Follow up: 07/08/25, 235.2 pounds (up 2.7 pounds since starting with our program on 05/13/25) AOM: none Labs: 02/2025 Exercise counseling- Reinforced as a primary intervention to promote lean tissue mass/muscle preservation. Dietary surveillance and counseling: [Program Project Analyst] Lead with lean protein sources and attempt 2-3 sections of plate method with each meal and snack. Continue to work on small sustainable changes to promote overall health F/u: [8 weeks] Medication considerations: none Treatment plan/changes: Dedra is a 74 year old female who presents today for weight management follow up. Since last visit patient is doing [poor/fair/well/very well] with lifestyle changes. Up 2.7 pounds since starting with our program on 05/13/25. Initial goals: 5% (220), 10% (209). States that 3 meals per day is not working for her. She states that she gained weight with eating 3 meals per day. Not taking any weight loss medications. Reports positive effect of not very much. Struggles with weight gain. Exercises 7 days per week with walking at least 30 minutes per day. Does need to see the pick up and delivery driver still. 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 She loves her chocolate milk with Hersheys syrup in the AM, discussed Fairlife chocolate milk as a healthier swap. Overall, patient is struggling with baseline. She is not taking any weight loss medications. She states that she went to eating 3 meals a day and this caused her to gain weight so she went back to eating once a day. She does not follow with the registered dietitian and this is scheduled today at checkout. Recommended at least 30 minutes of moderate physical activity most days of the week or 150 minutes weekly in addition to at least 2 days of strength training exercise. She will schedule the service engineer when she is available. She will follow-up with me in the office in 8 weeks or sooner if needed. It was discussed with patient that our role is to help them to understand the underlying complex biology of obesity as a disease and offer tools and support for overall health goals and set realistic expectations for weight loss. Understands that the treatment plan is personalized to the best of knowledge and ability with priority to decreasing wt related comorbidities as well as increasing functional capacity and quality of life. Will work with pt to help overcome barriers with the understanding that treatment plan may manager exchange time and tools, such as medications, do have limitations. Medications, as applicable, were discussed including up-to-date studies and effectiveness, risks and benefits, common side effects, MOA, etc. Regardless of medications, lifestyle change takes precedence. I highly recommended decreasing or eliminating caloric beverages especially sweetened beverages and alcohol. Pt should prioritize preplanning, shopping at the edge of the store, decreasing unhealthy food cues. I recommended packing snacks and meals when out of the home. No macronutrient is completely restricted. We discussed the addictive nature and unhealthy biological changes that occur with ultra processed food and how it may influence chronic disease. I highly recommended preference for whole foods/real foods and decrease added sugar, refined starches, and added fats. Lean unprocessed protein with each meal and each snack to help control appetite, decrease cravings and lessen muscle loss with weight loss advised. The patient will ideally try to get at least 5 or more servings of low carbohydrate veggies daily. Benefits of regular exercise including cardio and resistance training discussed and recommended, slowly increasing activity, as appropriate for the patient. Consider our service engineer for guidance. We offer individual and group visits from several different practitioners which was also recommended to help with long-term behavioral change and support. Recommend good sleep hygiene and the importance of adequate sleep. Circadian rhythm and the importance of mealtime. Stress reduction and controlling factors within reasonable control. The majority of today's visit was spent re-evaluating patient, counseling/educating patient on the options for the continual treatment of obesity and weight related health issues. See above treatment plan. See above treatment plan. Appointment made with RD at checkout. Recommended at least 30 minutes of moderate physical activity most days of the week or 150 minutes weekly in addition to at least 2 days of strength training exercise. Last labs done 02/2025. Stable with Levothyroxine. Last labs done 02/2025. Stable with Lipitor. It is hoped that this will improve with participation in our weight management program. Stable at this time without medication. Stable at this time with Oemprazole. Continue to follow with GI specialist. Stable at this time with Oemprazole. Continue to follow with GI specialist. Has had a gall bladder removal. Patient has history of tubal ligation. Future Tests Future scheduled test information is unavailable Pending Tests Test Name Ordered Date Scheduled Date XR shoulder RT min 2V* July 09, 2025 2:55p m Future Visits Future appointment information is unavailable Future Procedures Future procedure information is unavailable Future Medications Future medication information is unavailable Patient Instructions Patient instructions are unavailable
--- OUTSIDE RECORDS SUMMARY | 2025-07-09 15:15 | XMS_ITS | Clinical Summary ---
Author Organization [facility] Address [address], [address] [place] [address] Care Team Providers Care Safety Deposit Boxes Custodian Name Role Phone Yaneth Lewis MD Primary Care Provider Unavailab le Allergies Active AllergyReactionsCriticalityNoted DateCommentsIodineAnaphylaxisHigh 03/06/2014 Medications MedicationSigDispense QuantityRefillsLast FilledStart DateEnd DateStatus levothyroxine (SYNTHROID) 25 MCG tablet Take 25 mcg by mouth Daily.Active nystatin (MYCOSTATIN) powder Indications:Tinea crurisApply 2 times daily. 1 Bottle ctive clotrimazole-betamethasone (LOTRISONE) cream Indications:Yeast infection involving the vagina and surrounding areaApply topically 2 times daily. 1 Tube ctive albuterol (PROVENTIL) (2.5 MG/3ML) 0.083% nebulizer solution Take 2.5 mg by nebulization 4 times daily.Active PULMICORT FLEXHALER 180 MCG/ACT AEPB inhaler ctive montelukast (SINGULAIR) 10 MG tablet ctive Active Problems ProblemNoted DateDiagnosed DatePMB (postmenopausal bleeding)Endometrial thickening on ultrasound Overview (02/19/2018): Replacing Deprecated Diagnoses Immunizations ImmunizationAdministration DatesNext DueInfluenza Virus Kzhrhav4103/31/2014 Pneumococcal Conjugate 7-valent (Prevnar7)03/31/2014 Family History Medical HistoryRelationNameCommentsStrokeFatherBreast CancerMaternal Grandmother CancerMotherRelationNameStatusCommentsFatherDeceasedMaternal GrandmotherDeceased MotherDeceased Social History Tobacco UseTypesPacks/DayYears UsedDateSmoking Tobacco: NeverAlcohol UseStandard Drinks/WeekCommentsNo0 (1 standard drink = 0.6 oz pure alcohol)Comments NoSex and Gender InformationValueDate RecordedSex Assigned at BirthNot on file Legal FmdOcrlty54/10/2013 11:08 AM ESTGender IdentityNot on fileSexual OrientationNot on file Last Filed Vital Signs Vital SignReadingTime TakenCommentsBlood Ltpbcubu684/7407/17/2014 10:36 AM EST Lwbju188706/18/2014 10:10 AM JHWVxqmjleqkhs11.7 ??C (98 ??F)06/18/2014 10:10 AM ESTRespiratory Akwa672508/19/2013 10:10 AM ESTOxygen Cvouaculcb50%06/18/2014 10:10 AM ESTInhaled Oxygen Concentration--Kimhtr725.9 kg (240 lb)07/17/2014 10:36 AM MHKOdbebf735.1 cm (5' 5 )07/17/2014 10:36 AM ESTBody Mass Index39.9407/17/2014 10:36 AM EST Plan of Treatment Not on file Advance Directives * Full Code (Latest Code Status on File) Date ActivatedDate BtoxwrzydpiMjpxuutd31/2/2014 8:48 AM06/18/2014 2:42 PM Care Teams Team MemberRelationshipSpecialtyStart DateEnd Date Yaneth Lewis MD [address] [place] [address] PCP - Dhldtys20/19/14
--- OUTSIDE RECORDS SUMMARY | 2025-07-09 15:16 | XMS_ITS | Clinical Summary ---
Author Organization [facility] Address [address] [address] Phone Care Team Providers Care Assembler Watch Train Name Role Phone Unavailable Primary Care Provider Unavailabl e Social History Tobacco UseTypesPacks/DayYears UsedDateSmoking Tobacco: Never Assessed CommentsUnknownSex and Gender InformationValueDate RecordedSex Assigned at Not on fileLegal EmeWtqxng17/26/2022 6:09 PM ESTGender IdentityNot on fileSexual OrientationNot on file Plan of Treatment Not on file
--- OUTSIDE RECORDS SUMMARY | 2025-07-09 15:16 | XMS_ITS | Patient Health Record ---
Author Organization [facility] Address [address] [place] [address] Care Team Providers Care Cloth Grader Name Role Phone PCP, NO Primary Care Provider UnavailCullen Higgins Unavailable [phone] Self, Referral Unavailable Unavailable Reason For Referral No Information Medications Medication SIG (Take, Route, Frequency, Duration) Notes Start Date End Date Status meloxicam 15 mg 1 tab(s) orally once a day; Dura tion: 30 days 04/30/2024ctiveMedrol Dose Pack 4 mgas directed ORAL as FDJUXNHP00/24/2024 Not-TakingMobic 15 mg1 tab(s) orally once a day; Duration: 30 days10/01/2024 Active Problems Problem Type SNOMED Code ICD Code Onset Dates Problem Status W/U Status Risk Notes Problem Arthralgia of the pe lvic region and thigh (830471048) Left hip pain (M25.552) ActiveconfirmedProblemLocalized, primary osteoarthritis of the pelvic region and thigh (061660133)Unilateral primary osteoarthritis, left hip (M16.12)Active confirmedProblemEnthesopathy of hip region (72679424)Greater trochanteric bursitis of left hip (M70.62)Activeconfirmed Encounters Encounter Location Date Provider Diagnosis [facility] [address] [place] [address] 10/01/2024 [address] Greater trochanteric bursitis of left hip M70.62 Assessments Encounter Date Diagnosis (ICD Code) Assessment Notes Treatment Notes Treatment Clinical Notes Section Notes 10/01/2024 Greater trochanteric bursitis of left hip (ICD-10 - M70.62) Left trochanteric /17/2025OtherWe discussed the etiology and treatment of trochanteric bursitis today in the office. Patient has done well with prior injection and anti-inflammatories. Will refill her Mobic today. Will also perform trochanteric bursa injection. Will see her back in the office as needed. Left trochanteric bursitis Plan Of Treatment Pending Test Test Name Order Date SCC- HIP W/ PELVIS, LEFT 82018 4 Insurance Providers Payer Name Payer Address Payer Phone Subscriber Number Group Number Insured Name Patient Relationship to Insured Coverage Start Date Coverage End Date Medicare [employer] [address] [address] [place] [phone] [id number] Chetan BRISENO - patient is the insured
--- OUTSIDE RECORDS SUMMARY | 2025-07-09 15:16 | XMS_ITS | Clinical Summary ---
Author Organization [facility] Address [address] [place], [place] [address] Care Team Providers Care Business Information Analyst Name Role Phone Yaneth Lewis MD Primary Care Provider Lake Manzo CNP Unavailable [phone] Allergies Active AllergyReactionsCriticalityNoted VyyrMmqsxkylNqsfov72/20/2004 shock HrpgmOrjzz74/05/2023 Medications MedicationSigDispense QuantityRefillsLast FilledStart DateEnd DateStatus ADVIL 100MG TABLET Indications:Pain in joint, shoulder region,Myalgia and myositis, unspecifiedtake 4 pills 4 times tgmnq123Active atorvastatin (LIPITOR) 40 mg tablet Take 40 mg by mouth.08/30/2023ctive levothyroxine (SYNTHROID) 25 mcg tablet Take 25 mcg by mouth.4Active omeprazole (PRILOSEC) 40 mg capsule Take 1 capsule by mouth two times a day. 180 capsule 107/5Active omeprazole (PRILOSEC) 40 mg capsule Take 1 capsule by mouth once daily. Patient should start on July 17, 2025. 90 capsule 312/512/6Active Active Problems ProblemNoted DateDiagnosed MkhnOCLTXZPQFEUP47/20/2004 Encounters DateTypeDepartmentCare QihxWoqwpcdoklm13/15/2025Telephone Gastroenterology [address] [address] Jaclyn Andrews APRN.CNP 04/25/2025 11:08 AM EDTAnesthesia Event Gastroenterology [address] [phone] Sabrina Diaz MD 04/25/2025 10:14 AM EDT - 04/25/2025 11:59 PM EDTHospital Encounter Gastroenterology [address] [place] [address] Vicky Downing MD Eosinophilic esophagitis [K20.0] Discharge Disposition: Home04/18/2025GI Preprocedure Call Gastroenterology [address] [place] [address] Josefina Cheema MA from Last 3 Months Social History Tobacco UseTypesPacks/DayYears UsedDateSmoking Tobacco: NeverSmokeless Tobacco: Never Tobacco Cessation:Counseling Given: Not Answered Alcohol UseStandard Drinks/WeekCommentsNever0 (1 standard drink = 0.6 oz pure alcohol)Area Deprivation IndexAnswerDate RecordedNational Score (1-100), lower number is lower mvlz519610/16/2024State Score (1-10), lower number is lower risk8 10/16/2024Data from: https://www.neighborhoodatlas.[facility].edu/. Last address used for [address] [place] [address]/16/2024CommentsNoSex and Gender InformationValueDate RecordedSex Assigned at BirthNot on fileLegal CmsCmzztn09/02/2012 10:04 AM ESTGender IdentityNot on fileSexual OrientationNot on file Last Filed Vital Signs Vital SignReadingTime TakenCommentsBlood Ahrbquuw328/7710 11:50 AM EDT Wkyst500004/25/2025 11:50 AM GUVKqjeqijunbb67 ??C (96.8 ??F)04/25/2025 11:32 AM EDTRespiratory Ypgz5536 11:50 AM EDTOxygen Ekgyxxhuxg59%04/25/2025 11:50 AM EDTInhaled Oxygen Concentration--Jlksmi961.4 kg (228 lb)04/25/2025 10:26 AM VPBVddbdv746.1 cm (5' 5 )04/25/2025 10:26 AM EDTBody Mass Index37.9404/25/2025 10:26 AM EDT Plan of Treatment Health MaintenanceDue DateLast DoneCommentsAnxiety Zyteowhdv64/27/1971Depression Ekbtekiop87/27/1971Hepatitis C Exwioqjek89/27/1971DTaP,Tdap,Td Vaccine (1 - Tdap)1971Mammogram Mtfjwtoad56/27/1993CT Bgmbsqbqoumd92/27/1998Colonoscopy 1997Fecal Occult Blood1997Lipid Fmctnaqcg14/27/1998Sigmoidoscopy 1997Shingrix Vaccine (1 of 2)2002Diabetes Whoiikvrn15/20/2007 04/06/2004Pneumococcal Vaccine: 50+ (2 of 2 - PCV), 03/31/2014one Density Yravbsnhf33/27/2018Advance Directive Ayxhdtwgeh52/01/2025 Medicare Advantage Annual Wellness Visit5Covid-19 Vaccine ( season), 03/24/2023, 07/19/2022, Additional history exists Influenza Vaccine (#1)/, 03/24/2023, 03/30/2022, Additional history existsCologuard (FIT-DNA)/olorectal Cancer Screening 06/26/2027RSV AbppvvjOxvpocyol75/23/2023 Procedures Procedure NamePriorityDate/TimeAssociated DiagnosisCommentsSURGICAL PATHOLOGY Oaolzgj7204/25/2025 11:16 AM EDT Eosinophilic esophagitis EGD - THERAPEUTIC, EUS, OR TUBE WXRNRTUXYPXKNPnrbqiv71/09/2025 10:52 AM EDT Eosinophilic esophagitis COMPREHENSIVE METABOLIC LCRGEPywyfnt61/20/2004 5:32 PM EDT Joint Pain-Shlder FIBROMYALGIA from Last 3 Months or Most Recently Relevant to Health Maintenance Results * SURGICAL PATHOLOGY (04/25/2025 11:16 AM EDT)ComponentValueRef RangeTest Method Analysis TimePerformed AtPathologist SignatureCase ReportSurgical Pathology Report ? Case: [id number] ? Authorizing Provider: ??Vicky Downing MD ?Collected: ? 04/25/2025 11:16 AM ? Ordering Location: ? Gastroenterology ? Received: ?04/25/2025 01:21 PM ? Pathologist: ? El Breezy Schwartz MD ? Specimens: ?? A) - Stomach, Biopsy, r/o h pylroi ? B) - Esophagus, Distal, Biopsy, r/o eoe ? C) - Esophagus, Proximal, Biopsy, r/o eoe ? 04/26/2025 12:45 PM [facility] LABFINAL DIAGNOSISA. Stomach, Biopsy: - Reactive gastropathy with focal intestinal metaplasia - Negative for Helicobacter pylori organisms on routine staining - Negative for dysplasia B. Esophagus, Distal, Biopsy: -Portions of squamous epithelium with scattered intraepithelial eosinophils (focally up to 10 eosinophils per high-power field) C. Esophagus, Proximal, Biopsy: -Portions of squamous epithelium with scattered intraepithelial eosinophils (focally up to 5 eosinophils per high-power field) 04/26/2025 12:45 PM [facility] at 1245 EDTGross DescriptionA. Stomach, Biopsy Received in formalin are multiple pieces of alcaraz-red, soft tissue aggregating to 1.1 x 0.3 x 0.2 cm.Totally submitted in one cassette. B. Esophagus, Distal, Biopsy Received in formalin are multiple pieces of alcaraz-white, soft tissue aggregating to 1.7 x 0.2 x 0.1 cm. Totally submitted in one cassette. C. Esophagus, Proximal, Biopsy Received in formalin are multiple pieces of alcaraz-white, soft tissue aggregating to 1.7 x 0.2 x 0.1 cm. Totally submitted in one cassette. AJB April 25, 2025 6:16 PM Gross examination performed at [facility], [address] [place] [address]/26/2025 12:45 PM [facility] Performing LabDiagnostic interpretation performed at: [facility], [address] [place] [address], [place] [address] CLIA# [id number] Compilation Clerk: Flavio Aguilera MD04/26/2025 12:45 PM [facility] LABDisclaimerLaboratory Developed Test (LDT) Disclaimer: Performance characteristics of immunohistochemical, immunofluorescent, and chromogenic in-situ hybridization tests have been determined by the performing laboratory within the [facility] Department of Pathology and Laboratory Medicine ([facility], [facility], [facility], [facility], [facility], [facility], or [facility]) in a manner consistent with CLIA requirements. One or more of these tests may not have been cleared or approved by the FDA. The [facility] Department of Pathology and Laboratory Medicineis regulated under CLIA as qualified to perform high-complexity testing. These tests are used for clinical purposes. These should not be regarded as investigational or for research. Positive and negative controls stain appropriately.04/26/2025 12:45 PM EDT [facility] LABSpecimen (Source)Anatomical Location / LateralityCollection Method / VolumeCollection TimeReceived TimeTissueBIOPSY OF STOMACH / Lrdcure0604/25/2025 11:16 AM EDT1 1:21 PM EDTTissue specimen (specimen)BIOPSY OF ESOPHAGUS / Eoowtqd8004/25/2025 11:17 AM EDT1 1:21 PM EDTTissue specimen (specimen)BIOPSY OF ESOPHAGUS / Ymoemik2604/25/2025 11:17 AM EDT1 1:21 PM EDTComment:Prox/mid Narrative Authorizing ProviderResult TypeResult StatusYi Salina MDSURGICAL PATHOLOGYFinal ResultPerforming OrganizationAddressCity/State/ZIP CodePhone Number [facility] [address] * EGD - THERAPEUTIC, EUS, OR TUBE INTERVENTIONS (04/25/2025 10:52 AM EDT) Anatomical RegionLateralityModalityOtherSpecimen (Source)Anatomical Location / LateralityCollection Method / VolumeCollection TimeReceived Time04/25/2025 10:52 AM EDT Narrative 04/25/2025 11:30 AM EDT A31 Gastrointestinal Endoscopy Patient Name: Dedra Temple Procedure Date: 04/25/2025 10:52 AM Date of : 1950 Admit Type: Outpatient Age: 74 Room: A3 PROC 3 Gender: Female Note Status: Finalized Attending MD: Vicky Downing MD, [id number] Procedure: ? Upper GI endoscopy Indications: ? Follow-up of eosinophilic esophagitis Providers: ? Vicky Downing MD Patient Profile: ? This is a 74 year old female. Refer to note in ? patient chart for documentation of history and ? physical. Referring Physician: ?? Jaclyn Andrews (Referring MD) Medicines: ? Monitored Anesthesia Care Complications: ? No immediate complications. Requesting Provider: ?? Procedure: ? Pre-Anesthesia Assessment: ? - Prior to the procedure, a History and Physical ? was performed, and patient medications and ? allergies were reviewed. The patient's tolerance of ? previous anesthesia was also reviewed. The risks ? and benefits of the procedure and the sedation ? options and risks were discussed with the patient. ? All questions were answered, and informed consent ? was obtained. Prior Anticoagulants: The patient has ? taken no anticoagulant or antiplatelet agents. ASA ? Grade Assessment: II - A patient with mild systemic ? disease. After reviewing the risks and benefits, ? the patient was deemed in satisfactory condition to ? undergo the procedure. ? After obtaining informed consent, the endoscope was ? passed under direct vision. Throughout the ? procedure, the patient's blood pressure, pulse, and ? oxygen saturations were monitored continuously. The ? GIF-HQ190 was introduced through the mouth, and ? advanced to the second part of duodenum. The upper ? GI endoscopy was accomplished without difficulty. ? The patient tolerated the procedure well. Moderate Sedation: ? MAC anesthesia was administered by the anesthesia team. Findings: ? Esophagogastric landmarks were identified: the Z-line was found at 34 ? cm, the upper extent of the gastric folds was found at 34 cm and the ? site of hiatal narrowing was found at 37 cm from the incisors. ? A small hiatal hernia was present. ? A mild Schatzki ring was found in the lower third of the esophagus. ? Mucosal changes were found in the entire esophagus. Esophageal ? findings were graded using the Eosinophilic Esophagitis Endoscopic ? Reference Score (EoE-EREFS) as: Edema Grade 0 Normal (distinct ? vascular markings), Rings Grade 1 Mild (subtle circumferential ridges ? seen on esophageal distension), Exudates Grade 0 None (no white ? lesions seen), Furrows Grade 1 Mild (vertical lines without visible ? depth) and Stricture none (no stricture found). Biopsies were ? obtained from the proximal and distal esophagus with cold forceps for ? histology of suspected eosinophilic esophagitis. ? Localized mild inflammation characterized by congestion (edema), ? erythema and granularity was found in the gastric antrum. Biopsies ? were taken with a cold forceps for histology. ? The examined duodenum was normal. Impression: ?- Esophagogastric landmarks identified. ? - Small hiatal hernia. ? - Mild Schatzki ring. ? - Esophageal mucosal changes consistent with ? eosinophilic esophagitis. No recurrence of ? previously resected squamous papilloma. ? - Gastritis, characterized by congestion (edema), ? erythema and granularity. Biopsied. ? - Normal examined duodenum. ? - Biopsies were taken with a cold forceps for ? evaluation of eosinophilic esophagitis. Estimated Blood Loss: ??Estimated blood loss was minimal. Recommendation: ?- Await pathology results. ? - Resume previous diet. ? - Continue present medications. ? - Return to referring provider. Procedure Code(s): ? --- Professional --- ? 98061, Esophagogastroduodenoscopy, flexible, ? transoral; with biopsy, single or multiple Diagnosis Code(s): ? --- Professional --- ? K44.9, Diaphragmatic hernia without obstruction or ? gangrene ? K22.2, Esophageal obstruction ? K22.89, Other specified disease of esophagus ? K29.70, Gastritis, unspecified, without bleeding ? K20.0, Eosinophilic esophagitis CPT copyright 2020 [employer]. All rights reserved. The codes documented in this report are preliminary and upon traffic sergeant review may be revised to meet current compliance requirements. Attending Participation: ? I personally performed the entire procedure. Scope In: 11:14:44 AM Scope Out: 11:22:09 AM MD Vicky Ribera MD 04/25/2025 11:27:33 AM This report has been signed electronically by Vicky Downing MD Number of Addenda: 0 Note Initiated On: 04/25/2025 10:52 AM Authorizing ProviderResult TypeResult StatusTanignacio Andrews PEANUT SEPARATOR.CNPDIGESTIVE DISEASEFinal Result * (ABNORMAL) COMP METABOLIC PANEL (04/06/2004 5:32 PM EDT)ComponentValueRef RangeTest MethodAnalysis TimePerformed AtPathologist SignatureProtein, Total 7.16.0 - 8.4 g/dLOUR LADY OF [facility] LABAlbumin4.23.5 - 5.0 g/dLOUR LADY OF [facility] LABCalcium9.78.5 - 10.5 mg/dLOUR LADY OF [facility] LABBilirubin, Total0.40.0 - 1.5 mg/dLCLEVELAND CLINIC LABAlkaline Wlbsxyciaig6438 - 150 U/[facility] NHPQBG138 - 40 U/[facility] SNHAmipsgo6924 - 100 mg/dLOUR LADY OF [facility] WFMRSQ13 - 25 mg/dLOUR LADY [facility] LABCreatinine0.80.7 - 1.4 mg/dLOUR LADY OF [facility] QSEZwczym295422 - 148 mmol/LCOHIO STATE HARDING HOSPITALAND CLINIC LABPotassium4.03.5 - 5.0 mmol/LC[facility] HJWSxdbckpq32643 - 110 mmol/[facility] DZCZB451 (A)24 - 32 mmol/LC[facility] LABAnion Gap40 - 15 mmol/[facility] GFYSMB77 - 45 U/[facility] LABSpecimen (Source)Anatomical Location / LateralityCollection Method / VolumeCollection TimeReceived TimeBlood specimen (specimen)BLOOD SPECIMEN / Ecxegui5304/06/2004 5:32 PM EDT Narrative Authorizing ProviderResult TypeResult StatusKaren (Hist) RendtLABORATORYFinal ResultPerforming OrganizationAddressCity/State/ZIP CodePhone Number [facility] [address] [place] [address] from Last 3 Months or Most Recently Relevant to Health Maintenance Insurance Care Teams Team MemberRelationshipSpecialtyStart DateEnd Yaneth Lewis MD [address] [place] [address] PCP - General02/10/04 Lake Manzo CNP [address] [place] [phone] [facility]01/22/25
--- OUTSIDE RECORDS SUMMARY | 2025-07-09 15:16 | XMS_ITS | Clinical Summary ---
Author Organization [facility] Address [address] [place] [address] Care Team Providers Care Ignition Specialist Name Role Phone Colby Escobar MD Primary Care Provider [phone] Allergies Active AllergyReactionsCriticalityNoted HnuvJzxwkafjAdhlanixpscihYng24/04/2024 Other Reaction(s): Unknown ZueuihKwosjqkotvmHbtk37/05/4940EmtetEdvow92/05/5039Oontx75/20/2004 rash rash, skin pills Medications MedicationSigDispense QuantityRefillsLast FilledStart DateEnd DateStatus albuterol HFA (Proventil HFA) 90 mcg/act inhaler Take by mouth04/06/2023ctive atorvastatin (Lipitor) 40 MG tablet Indications:Other hyperlipidemiaTake 1 tablet (40 mg) by mouth Daily 90 tablet ctive levothyroxine (Synthroid) 25 MCG tablet Indications:Hypothyroidism, unspecified typeTake 1 tablet (25 mcg) by mouth in the morning. Take before meals. 90 tablet ctive omeprazole (PriLOSEC) [address] capsule Take 40 mg by mouth in the morning and 40 mg in the evening. Active Active Problems ProblemNoted DateDiagnosed DateOther djszdkfxwfgfua08/09/2024Mild intermittent asthma without tdaqbakrhdvb17/09/2024cquired syumwrvbnkbuok38/09/2024lass 2 obesity without serious comorbidity in adult10/25/2023 Social History Tobacco UseTypesPacks/DayYears UsedDateSmoking Tobacco: NeverSmokeless Tobacco: Never Tobacco Cessation:Counseling Given: Not Answered CommentsUnknownSex and Gender InformationValueDate RecordedSex Assigned at BirthNot on fileLegal GriUxaors01/15/2023 7:09 PM EDTGender IdentityNot on fileSexual OrientationNot on file Last Filed Vital Signs Vital SignReadingTime TakenCommentsBlood Euyrmbup041/7204 1:28 PM EDT Fvlfu0927 1:28 PM SMWAajyhorskdq81.3 ??C (97.4 ??F)10/25/2023 1:28 PM EDTRespiratory Liak5594 1:28 PM EDTOxygen Lyrarnjqxm71%10/25/2023 1:28 PM EDTInhaled Oxygen Concentration--Zekipt839 kg (239 lb 3.2 oz)10/25/2023 1:28 PM RMABjjtwd727.1 cm (5' 5 )10/25/2023 1:28 PM EDTBody Mass Index39.8010/25/2023 1:28 PM EDT Plan of Treatment DateTypeDepartmentCare Team (Latest Contact Info)Xcfiwfivmub16/27/2026 10:00 AM EDTOffice Visit [facility] [address] [place] [id number] Yancy Carmichael, PA [address] [place], [place] [id number] Health MaintenanceDue DateLast DoneCommentsCT Cpcbdvghxyfy59/27/1953olonoscopy 1952FIT1952FOBT1950 5828Jzlizrldnjyiw79/27/6328Sykhwxeyt95/27/1993 Pneumococcal Vaccine: 65+ Years (2 of 2 - PCV), 03/31/2014 Influenza Vaccine (#1)/01/2023, 03/30/2022, 04/24/2021, Additional history existsColorectal Cancer Pspkpoyet57/10/2027FIT-DNA Insurance * Guarantor: Dedra Temple TypeRelation to PatientDate of PhoneBilling AddressPersonal/GmlbkxPxef61/[birth year]/[address] [address] Care Teams Team MemberRelationshipSpecialtyStart DateEnd Date Colby Escobar MD [address] [place] [address] PCP - GeneralFamily Medicine07/21/23
--- OUTSIDE RECORDS SUMMARY | 2025-07-09 15:16 | XMS_ITS | Patient Health Record ---
Author Organization [facility] [place] Address [address] [place] [address] Care Team Providers Care Business Banker Name Role Phone Yaneth Lewis MD Primary Care Provider Unavailabl e Reason For Referral No Information Plan Of Treatment No Information Insurance Providers Payer Name Payer Address Payer Phone Subscriber Number Group Number Insured Name Patient Relationship to Insured Coverage Start Date Coverage End Date SELF PAY ON PATIENT [employer] Dedra TempleSelf - patient is the bvcstro6707/02/2008
--- NOTE | 2025-07-09 15:20 | XR_ITS ---
The [address] [address] Patient Name: TARAH BRISENO MRN: [id number] date: 1950 Sex: F Assigned Patient Location: [facility] Current Patient Location: [facility] Accession/Order Number: [id number] Exam Date: 07/09/2025 15:24 Report Date: 07/09/2025 23:37 At the request of: GRACIA DAVEY Procedure: XR shoulder RT min 2V 3 views right shoulder HISTORY: Right shoulder pain. Limited range of motion. Injury. Adequate bony alignment without acute displaced fracture. Mild degeneration. XR/XR shoulder RT min 2V IMPRESSION: No acute displaced fracture. Impression dictated by: Anthony Flores M.D. 07/09/2025 11:37 PM Dictation Location: [place] [address] Electronically authenticated by: [id number] Y Date: 07/09/2025 23:37
== END 2025-07-09 15:13 | disposition home or self-care (01) ==
PROVIDERS: PCP Nurse Practitioner Family; Visit Provider Nurse Practitioner Family
DX: M25.511 Pain in right shoulder (principal)
CPT/HCPCS: 73030